=== PATIENT | male | born 1940 | race Caucasian/White ===

== ENCOUNTER 2019-02-13 16:51 | Inpatient (IN) | payer MEDICARE ==
[2019-02-13] MEDS ORDERED: SODIUM CHLORIDE 0.9% 1,000 ML IV STA (17:16)
--- NOTE | 2019-02-13 17:51 | ED ---
Weakness HPI - General Chief complaint: Weakness Stated complaint: Mental Health Time Seen by Provider: 02/13/19 17:16 Source: patient, family, EMS, RN notes reviewed, old records reviewed Mode of arrival: EMS Limitations: no limitations - History of Present Illness Initial comments: This is an 79-year-old male the ER for evaluation. Patient presents today for evaluation of weakness. Patient has not gone on for 2 days. Patient inability and late. Patient has been severely depressed. Patient's been severely depressed since the of his that is been for years. Patient is also daily drinker. MD Complaint: generalized weakness, lack of energy, difficulty walking -: week(s) Location: generalized Severity: moderate Severity scale (1-10): 5 Quality: aching Consistency: constant Improves with: none Worsens with: none Associated Symptoms: confusion, loss of appetite, nausea/vomiting, myalgias - Related Data Home Medications Medication Instructions Recorded Confirmed Allopurinol [Zyloprim] 100 mg PO BID 02/13/19 02/13/19 Atorvastatin [Lipitor] 20 mg PO DAILY 02/13/19 02/13/19 Cholecalciferol (Vitamin D3) 2,000 unit PO HS 02/13/19 02/13/19 [Vitamin D3] Cyanocobalamin (Vitamin B-12) 1,000 mcg PO DAILY 02/13/19 02/13/19 [Vitamin B-12] Escitalopram [Lexapro] 5 mg PO DAILY 02/13/19 02/13/19 Furosemide [Lasix] 20 mg PO DAILY 02/13/19 02/13/19 Metoprolol Tartrate [Lopressor] 50 mg PO BID 02/13/19 02/13/19 Potassium Chloride [Klor-Con 20] 20 meq PO BID 02/13/19 02/13/19 Rivaroxaban [Xarelto] 20 mg PO DAILY 02/13/19 02/13/19 Tamsulosin [Flomax] 0.4 mg PO DAILY 02/13/19 02/13/19 Allergies Allergy/AdvReac Type Severity Reaction Status Date / Time No Known Allergies Allergy Unverified 02/13/19 18:00 Review of Systems ROS Statement: Those systems with pertinent positive or pertinent negative responses have been documented in the HPI. ROS Other: All systems not noted in ROS Statement are negative. Past Medical History Past Medical History: Atrial Fibrillation, Myocardial Infarction ([place]), Pneumonia Additional Past Medical History / Comment(s): alcoholic, History of Any Multi-Drug Resistant Organisms: C-DIFF Past Surgical History: Cardiac Ablation, Pacemaker Additional Past Surgical History / Comment(s): defibrilator Past Psychological History: Depression Smoking Status: Never smoker Past Alcohol Use History: Daily, Heavy Past Drug Use History: None Reported General Exam Limitations: no limitations General appearance: alert, in no apparent distress Head exam: Present: atraumatic, normocephalic, normal inspection Eye exam: Present: normal appearance, PERRL, EOMI. Absent: scleral icterus, conjunctival injection, periorbital swelling ENT exam: Present: normal exam, mucous membranes moist Neck exam: Present: normal inspection. Absent: tenderness, meningismus, lymphadenopathy Respiratory exam: Present: normal lung sounds bilaterally. Absent: respiratory distress, wheezes, rales, rhonchi, stridor Cardiovascular Exam: Present: regular rate, normal rhythm, normal heart sounds. Absent: systolic murmur, diastolic murmur, rubs, gallop, clicks GI/Abdominal exam: Present: soft, normal bowel sounds. Absent: distended, t enderness, guarding, rebound, rigid Extremities exam: Present: normal inspection, full ROM, normal capillary refill. Absent: tenderness, pedal edema, joint swelling, calf tenderness Back exam: Present: normal inspection Neurological exam: Present: alert, oriented X3, CN II-XII intact Psychiatric exam: Present: normal affect, normal mood Skin exam: Present: warm, dry, intact, normal color. Absent: rash Course Vital Signs 02/13/19 02/13/19 02/13/19 16:54 18:52 19:40 Temperature 97.9 F Pulse Rate 63 110 H 77 Respiratory 16 18 18 Rate Blood Pressure 135/76 133/69 139/73 O2 Sat by Pulse 93 L 96 Oximetry - Reevaluation(s) Reevaluation #1: 02/13/19 19:36 Medical record is reviewed Reevaluation #2: 02/13/19 19:36 Unable to pass urinary catheterization EKG Findings - EKG Comments: EKG Findings:: EKG shows sinus rhythm rate of 73, HI 180, QRS 102, QTc 438 Medical Decision Making - Medical Decision Making 79 male t the ED for eval re weakness, hyponatremia, pna, uti, hyponatremia, dehydration weakness and increase in falls. WIll admit for evaluation of abn labs, treatment of uti and pna. - Lab Data Result diagrams: 02/13/19 17:30 02/13/19 17:30 Lab Results 02/13/19 02/13/19 02/13/19 Range/Units 17:30 17:30 17:30 WBC 7.7 (3.8-10.6) k/uL RBC 3.67 L (4.30-5.90) m/uL Hgb 11.5 L (13.0-17.5) gm/dL Hct 34.7 L (39.0-53.0) % MCV 94.7 (80.0-100.0) fL MCH 31.4 (25.0-35.0) pg MCHC 33.2 (31.0-37.0) g/dL RDW 13.9 (11.5-15.5) % Plt Count 163 (150-450) k/uL Neutrophils % 75 % Lymphocytes % 15 % Monocytes % 7 % Eosinophils % 1 % Basophils % 0 % Neutrophils # 5.8 (1.3-7.7) k/uL Lymphocytes # 1.2 (1.0-4.8) k/uL Monocytes # 0.5 (0-1.0) k/uL Eosinophils # 0.1 (0-0.7) k/uL Basophils # 0.0 (0-0.2) k/uL PT (9.0-12.0) sec INR (<1.2) APTT (22.0-30.0) sec Sodium 126 L (137-145) mmol/L Potassium 5.6 H (3.5-5.1) mmol/L Chloride 94 L (98-107) mmol/L Carbon Dioxide 21 L (22-30) mmol/L Anion Gap 11 mmol/L BUN 34 H (9-20) mg/dL Creatinine 1.08 (0.66-1.25) mg/dL Est GFR (CKD-EPI)AfAm 75 (>60 ml/min/1.73 sqM) Est GFR (CKD-EPI)NonAf 64 (>60 ml/min/1.73 sqM) Glucose 92 (74-99) mg/dL Plasma Lactic Acid Lemuel 2.2 H* (0.7-2.0) mmol/L Calcium 9.4 (8.4-10.2) mg/dL Phosphorus 4.0 (2.5-4.5) mg/dL Magnesium 1.5 L (1.6-2.3) mg/dL Total Bilirubin 0.7 (0.2-1.3) mg/dL AST 86 H (17-59) U/L ALT 40 (21-72) U/L Alkaline Phosphatase 65 (38-126) U/L Troponin I (0.000-0.034) ng/mL NT-Pro-B Natriuret Pep pg/mL Total Protein 7.1 (6.3-8.2) g/dL Albumin 3.3 L (3.5-5.0) g/dL Lipase (23-300) U/L TSH 2.110 (0.465-4.680) mIU/L Urine Color Urine Appearance (Clear) Urine pH (5.0-8.0) Ur Specific Adin (1.001-1.035) Urine Protein (Negative) Urine Glucose (UA) (Negative) Urine Ketones (Negative) Urine Blood (Negative) Urine Nitrite (Negative) Urine Bilirubin (Negative) Urine Urobilinogen (<2.0) mg/dL Ur Leukocyte Esterase (Negative) Urine RBC (0-5) /hpf Urine WBC (0-5) /hpf Urine WBC Clumps (None) /hpf Ur Squamous Epith Cells (0-4) /hpf Urine Bacteria (None) /hpf 02/13/19 02/13/19 02/13/19 Range/Units 17:30 17:30 17:30 WBC (3.8-10.6) k/uL RBC (4.30-5.90) m/uL Hgb (13.0-17.5) gm/dL Hct (39.0-53.0) % MCV (80.0-100.0) fL MCH (25.0-35.0) pg MCHC (31.0-37.0) g/dL RDW (11.5-15.5) % Plt Count (150-450) k/uL Neutrophils % % Lymphocytes % % Monocytes % % Eosinophils % % Basophils % % Neutrophils # (1.3-7.7) k/uL Lymphocytes # (1.0-4.8) k/uL Monocytes # (0-1.0) k/uL Eosinophils # (0-0.7) k/uL Basophils # (0-0.2) k/uL PT 13.7 H (9.0-12.0) sec INR 1.3 H (<1.2) APTT 28.9 (22.0-30.0) sec Sodium (137-145) mmol/L Potassium (3.5-5.1) mmol/L Chloride (98-107) mmol/L Carbon Dioxide (22-30) mmol/L Anion Gap mmol/L BUN (9-20) mg/dL Creatinine (0.66-1.25) mg/dL Est GFR (CKD-EPI)AfAm (>60 ml/min/1.73 sqM) Est GFR (CKD-EPI)NonAf (>60 ml/min/1.73 sqM) Glucose (74-99) mg/dL Plasma Lactic Acid Lemuel (0.7-2.0) mmol/L Calcium (8.4-10.2) mg/dL Phosphorus (2.5-4.5) mg/dL Magnesium (1.6-2.3) mg/dL Total Bilirubin (0.2-1.3) mg/dL AST (17-59) U/L ALT (21-72) U/L Alkaline Phosphatase (38-126) U/L Troponin I <0.012 (0.000-0.034) ng/mL NT-Pro-B Natriuret Pep 1880 pg/mL Total Protein (6.3-8.2) g/dL Albumin (3.5-5.0) g/dL Lipase (23-300) U/L TSH (0.465-4.680) mIU/L Urine Color Urine Appearance (Clear) Urine pH (5.0-8.0) Ur Specific Adin (1.001-1.035) Urine Protein (Negative) Urine Glucose (UA) (Negative) Urine Ketones (Negative) Urine Blood (Negative) Urine Nitrite (Negative) Urine Bilirubin (Negative) Urine Urobilinogen (<2.0) mg/dL Ur Leukocyte Esterase (Negative) Urine RBC (0-5) /hpf Urine WBC (0-5) /hpf Urine WBC Clumps (None) /hpf Ur Squamous Epith Cells (0-4) /hpf Urine Bacteria (None) /hpf 02/13/19 02/13/19 Range/Units 17:30 18:20 WBC (3.8-10.6) k/uL RBC (4.30-5.90) m/uL Hgb (13.0-17.5) gm/dL Hct (39.0-53.0) % MCV (80.0-100.0) fL MCH (25.0-35.0) pg MCHC (31.0-37.0) g/dL RDW (11.5-15.5) % Plt Count (150-450) k/uL Neutrophils % % Lymphocytes % % Monocytes % % Eosinophils % % Basophils % % Neutrophils # (1.3-7.7) k/uL Lymphocytes # (1.0-4.8) k/uL Monocytes # (0-1.0) k/uL Eosinophils # (0-0.7) k/uL Basophils # (0-0.2) k/uL PT (9.0-12.0) sec INR (<1.2) APTT (22.0-30.0) sec Sodium (137-145) mmol/L Potassium (3.5-5.1) mmol/L Chloride (98-107) mmol/L Carbon Dioxide (22-30) mmol/L Anion Gap mmol/L BUN (9-20) mg/dL Creatinine (0.66-1.25) mg/dL Est GFR (CKD-EPI)AfAm (>60 ml/min/1.73 sqM) Est GFR (CKD-EPI)NonAf (>60 ml/min/1.73 sqM) Glucose (74-99) mg/dL Plasma Lactic Acid Lemuel (0.7-2.0) mmol/L Calcium (8.4-10.2) mg/dL Phosphorus (2.5-4.5) mg/dL Magnesium (1.6-2.3) mg/dL Total Bilirubin (0.2-1.3) mg/dL AST (17-59) U/L ALT (21-72) U/L Alkaline Phosphatase (38-126) U/L Troponin I (0.000-0.034) ng/mL NT-Pro-B Natriuret Pep pg/mL Total Protein (6.3-8.2) g/dL Albumin (3.5-5.0) g/dL Lipase 235 (23-300) U/L TSH (0.465-4.680) mIU/L Urine Color Yellow Urine Appearance Turbid (Clear) Urine pH 7.5 (5.0-8.0) Ur Specific Adin 1.017 (1.001-1.035) Urine Protein 2+ H (Negative) Urine Glucose (UA) Negative (Negative) Urine Ketones Negative (Negative) Urine Blood Moderate H (Negative) Urine Nitrite Negative (Negative) Urine Bilirubin Negative (Negative) Urine Urobilinogen <2.0 (<2.0) mg/dL Ur Leukocyte Esterase Large H (Negative) Urine RBC 127 H (0-5) /hpf Urine WBC >182 H (0-5) /hpf Urine WBC Clumps Many H (None) /hpf Ur Squamous Epith Cells 10 H (0-4) /hpf Urine Bacteria Many H (None) /hpf - Radiology Data Radiology results: report reviewed (CT brain Cspine negative for acute disease, CXR and Pelvis XR show pna), image reviewed Disposition Clinical Impression: Hyponatremia, Dehydration, Alcoholism, Weakness, Fall, UTI (urinary tract infection), Community acquired bacterial pneumonia Disposition: ADMITTED IP TO THIS HOSP Condition: Fair Is patient prescribed a controlled substance at d/c from ED?: No Referrals: Zenobia Au DO [Primary Care Provider] - 1-2 days
[2019-02-13 17:55] LABS: Basophils % (A) 0 %; Eosinophils # (A) 0.1 k/uL (0-0.7); Eosinophils % (A) 1 %; HCT 34.7 % (39.0-53.0); HGB 11.5 gm/dL (13.0-17.5); Lymphocytes # (A) 1.2 k/uL (1.0-4.8); Lymphocytes % (A) 15 %; MCH 31.4 pg (25.0-35.0); MCHC 33.2 g/dL (31.0-37.0); MCV 94.7 fL (80.0-100.0); Mean Platelet Volume 7.5; Monocytes # (A) 0.5 k/uL (0-1.0); Monocytes % (A) 7 %; Neutrophils # (A) 5.8 k/uL (1.3-7.7); Neutrophils % (A) 75 %; Platelet Count 163 k/uL (150-450); RBC 3.67 m/uL (4.30-5.90); RDW 13.9 % (11.5-15.5); WBC 7.7 k/uL (3.8-10.6)
[2019-02-13 18:10] LABS: INR 1.3 (<1.2); Partial Thromboplastin Time 28.9 sec (22.0-30.0); Prothrombin Time 13.7 sec (9.0-12.0)
[2019-02-13 18:14] LABS: Albumin 3.3 g/dL (3.5-5.0); Calcium 9.4 mg/dL (8.4-10.2); Magnesium 1.5 mg/dL (1.6-2.3); Potassium 5.6 mmol/L (3.5-5.1); Total Bilirubin 0.7 mg/dL (0.2-1.3); Total Protein 7.1 g/dL (6.3-8.2)
[2019-02-13 18:57] LABS: Appearance,Urine Turbid (Clear); Bacteria,Urine Many /hpf; Bilirubin,Urine Negative (Negative); Blood,Urine Moderate (Negative); Color,Urine Yellow; Glucose,Urine (UA) Negative (Negative); Ketones,Urine Negative (Negative); Leukocyte Esterase,Urine Large (Negative); Nitrite,Urine Negative (Negative); PH, Urine 7.5 (5.0-8.0); Protein,Urine 2+ (Negative); RBC,Urine 127 /hpf (0-5); Specific Gravity,Urine 1.017 (1.001-1.035); Squamous Epithelial Cell,Urine 10 /hpf (0-4); Urobilinogen,Urine <2.0 mg/dL (<2.0); WBC,Urine >182 /hpf (0-5)
--- NOTE | 2019-02-13 19:10 | XR ---
EXAMINATION TYPE: XR pelvis AP view DATE OF EXAM: 02/13/2019 COMPARISON: NONE HISTORY: Fall. Pain. TECHNIQUE: Single view FINDINGS: Pelvic ring is intact. Proximal femurs and hip joints are intact. There is vascular calcifi cation. Sacroiliac joints are intact. IMPRESSION: Negative exam. No fracture.
--- NOTE | 2019-02-13 19:10 | CT ---
EXAMINATION TYPE: CT brain roselia laureano con DATE OF EXAM: 02/13/2019 COMPARISON: None HISTORY: Fall. CT DLP: 1444.9 mGycm Automated exposure control for dose reduction was used. TECHNIQUE: CT scan of the head and cervical spine are performed without contrast. FINDINGS: There is cerebral cortical atrophy. There is no mass effect nor midline shift. There is n o sign of intracranial hemorrhage. The calvarium is intact. Cervical vertebra have normal alignment. There is degenerative disc space narrowing throughout the ce rvical spine. There is hypertrophic mild facet arthropathy. Skull base is intact. There is no evidenc e of cervical spine fracture. There is spurring of the endplates. IMPRESSION: Cerebral atrophy. No acute intracranial abnormality. Spondylotic changes in the cervical spine. No fracture seen.
--- NOTE | 2019-02-13 19:14 | XR ---
EXAMINATION TYPE: XR knee complete bilateral DATE OF EXAM: 02/13/2019 COMPARISON: NONE HISTORY: Pain TECHNIQUE: 3 views each knee FINDINGS: I see no fracture nor dislocation. Joint spaces are fairly normal. There is mild soft tissu e swelling anterior to the left patella. There is no sign of joint effusion. There is vascular calcif ication. IMPRESSION: Mild left-sided soft tissue swelling anteriorly. No fracture seen.
--- NOTE | 2019-02-13 19:19 | XR ---
EXAMINATION TYPE: XR chest 2V DATE OF EXAM: 02/13/2019 COMPARISON: NONE HISTORY: Weakness TECHNIQUE: Frontal and lateral views of the chest are obtained. FINDINGS: There is patchy infiltrate and atelectasis in the left lower lobe. There is minimal atelec tasis lateral right lung base. There is no heart failure. There is a left axillary pacemaker. There a re chest leads. IMPRESSION: Mild infiltrates and atelectasis at the lung bases and mainly on the left side. No heart failure.
[2019-02-13] MEDS ORDERED: AZITHROMYCIN 500 MG in SODIUM CHLORIDE 0.9% 250 ML IVPB STA (19:37)
[2019-02-13] MEDS ORDERED: IPRATROPIUM-ALBUTEROL 3 ML NEB INHALATION PRN (20:11)
[2019-02-13] MEDS ORDERED: PNEUMONIA PROTOCOL UTILIZED 1 EACH MISC PO PRN (20:11)
[2019-02-13] MEDS ORDERED: THIAMINE 100 MG/ML 2 ML VIAL IM STA (20:11)
[2019-02-13] MEDS ORDERED: LORazepam 2 MG/ML INJ IV PRN ×6 (20:11→22:36)
[2019-02-13] MEDS: SODIUM CHLORIDE 0.9% 1,000 ML IV SCH (20:40)
[2019-02-13] MEDS: THIAMINE 100 MG TAB PO SCH (22:33)
[2019-02-14] MEDS: SODIUM CHLORIDE 0.9% 1,000 ML IV SCH ×2 (06:07→16:33)
[2019-02-14] MEDS: ESCITALOPRAM 5 MG TAB PO SCH (07:11)
[2019-02-14] MEDS: METOPROLOL TARTRATE 50 MG TAB PO SCH ×2 (07:11→21:43)
[2019-02-14] MEDS: THIAMINE 100 MG TAB PO SCH ×2 (07:11→17:42)
[2019-02-14] MEDS: ATORVASTATIN 20 MG TAB PO SCH (07:11)
[2019-02-14] MEDS: TAMSULOSIN 0.4 MG CAP.ER.24H PO SCH (07:11)
[2019-02-14] MEDS: FUROSEMIDE 20 MG TAB PO SCH (07:11)
[2019-02-14] MEDS: POTASSIUM CHLORIDE ER 20 MEQ TAB.ER PO SCH ×2 (07:12→21:43)
[2019-02-14] MEDS: MULTIVITAMINS, THERA 1 EACH TAB PO SCH (07:12)
[2019-02-14] MEDS: ALLOPURINOL 100 MG TAB PO SCH ×2 (07:13→21:43)
[2019-02-14] MEDS: CYANOCOBALAMIN 500 MCG TAB PO SCH (07:13)
--- NOTE | 2019-02-14 07:52 | XR ---
EXAMINATION TYPE: XR chest 2V DATE OF EXAM: 02/14/2019 COMPARISON: 02/13/2019 HISTORY: Follow-up for pneumonia. Shortness of breath. TECHNIQUE: Frontal and lateral views of the chest are obtained. FINDINGS: Bandlike opacity is seen within the left midlung with small layering left pleural effusion and trace right pleural effusion blunting the costophrenic angle. Underlying COPD is present as ther e is pulmonary hyperinflation and biapical lucency. There is mild diffuse osseous demineralization. C ardia mediastinal silhouette is enlarged with dual lead left-sided cardiac device. IMPRESSION: Similar-appearing probable left midlung atelectasis and additional area of left basilar atelectasis or pneumonia, small layering left pleural effusion, and trace right pleural effusion with underlying COPD suspected.
[2019-02-14] MEDS ORDERED: AZITHROMYCIN 500 MG in SODIUM CHLORIDE 0.9% 250 ML IVPB SCH (09:00)
[2019-02-14] MEDS: RIVAROXABAN 20 MG TAB PO SCH (09:05)
[2019-02-14 09:24] LABS: Basophils % (A) 0 %; Eosinophils % (A) 1 %; HGB 10.4 gm/dL (13.0-17.5); Lymphocytes # (A) 0.8 k/uL (1.0-4.8); Lymphocytes % (A) 14 %; MCH 32.1 pg (25.0-35.0); MCHC 32.6 g/dL (31.0-37.0); MCV 98.4 fL (80.0-100.0); Mean Platelet Volume 7.1; Monocytes # (A) 0.5 k/uL (0-1.0); Monocytes % (A) 7 %; Neutrophils # (A) 4.6 k/uL (1.3-7.7); Neutrophils % (A) 76 %; Platelet Count 153 k/uL (150-450); RBC 3.25 m/uL (4.30-5.90); RDW 13.9 % (11.5-15.5); WBC 6.1 k/uL (3.8-10.6)
[2019-02-14 09:32] LABS: ALT 40 U/L (21-72); AST 68 U/L (17-59); African American GFR (CKD) >90 (>60 ml/min/1.73 sqM); Albumin 2.8 g/dL (3.5-5.0); Alkaline Phosphatase 52 U/L (38-126); Anion Gap 12 mmol/L; Blood Urea Nitrogen 31 mg/dL (9-20); Calcium 8.6 mg/dL (8.4-10.2); Carbon Dioxide 18 mmol/L (22-30); Chloride 102 mmol/L (98-107); Glucose 99 mg/dL (74-99); Potassium 4.6 mmol/L (3.5-5.1); Sodium 132 mmol/L (137-145); Total Bilirubin 0.5 mg/dL (0.2-1.3); Total Protein 6.1 g/dL (6.3-8.2)
--- NOTE | 2019-02-14 11:32 | P.HPIM ---
History of Present Illness H&P Date: 02/14/19 Chief Complaint: Generalized weakness This is a 79-year-old male, patient of [facility]. He has a known past medical history of alcohol abuse, atrial fibrillation anticoagulated with Xarelto, hyperlipidemia, depression, myocardial infarction and pacemaker place ment. Patient presents to the ER with complaint of generalized weakness and falling at home. Patient does admit to a cough and burning with urination. Chest x-ray had shown a mild infiltrate and atelectasis at the lung bases mostly at the left. Urinalysis is positive for UTI use started on Zithromax and Rocephin in the ER. He had a computed tomography scan of the brain and cervical spine which showed no acute intracranial process and no cervical fractures. Did reveal cerebral atrophy and spondylitic changes of the cervical spine. Patient does report a fall at home 2 days ago. There is no loss of consciousness. He does report laying on the floor until family arrived which may have been for several hours. CK level minimally elevated at 435. Patient's had hyponatremia with a sodium of 126 which is up to 132 with IV fluids potassium 5.6 lactic 2.2 magnesium was 1.5 ammonia level less than 9. Pulmonary service has been placed on consult regarding the pneumonia. Patient had a pelvic x-ray which was negative x-ray of the knees showing swelling on the left no evidence of any fra ctures. EKG sinus rhythm with occasional PVCs and PACs. Patient denies any fever, chills, sweats, nausea or vomiting or bowel movement changes. He denies any chest pain or shortness of breath. Review of Systems Please refer to HPI otherwise unremarkable Past Medical History Past Medical History: Atrial Fibrillation, Heart Failure, Myocardial Infarction ([place]), Pneumonia Additional Past Medical History / Comment(s): alcoholic, Last Myocardial Infarction Date:: 2010 History of Any Multi-Drug Resistant Organisms: C-DIFF Date of last positivie culture/infection: 2014 MDRO Source:: stool Past Surgical History: Cardiac Ablation, Pacemaker Additional Past Surgical History / Comment(s): defibrilator Type of Cardiac Device: Permanent Pacemaker, AICD Device Placement Date:: 2010 Past Psychological History: Depression Smoking Status: Never smoker Past Alcohol Use History: Daily, Heavy Past Drug Use History: None Reported - Past Family History Mother Family Medical History: CVA/TIA, Diabetes Mellitus Father Family Medical History: CVA/TIA, GI Bleed Medications and Allergies Home Medications Medication Instructions Recorded Confirmed Type Allopurinol [Zyloprim] 100 mg PO BID 02/13/19 02/13/19 History Atorvastatin [Lipitor] 20 mg PO DAILY 02/13/19 02/13/19 History Cholecalciferol (Vitamin D3) 2,000 unit PO HS 02/13/19 02/13/19 History [Vitamin D3] Cyanocobalamin (Vitamin B-12) 1,000 mcg PO DAILY 02/13/19 02/13/19 History [Vitamin B-12] Escitalopram [Lexapro] 5 mg PO DAILY 02/13/19 02/13/19 History Furosemide [Lasix] 20 mg PO DAILY 02/13/19 02/13/19 History Metoprolol Tartrate [Lopressor] 50 mg PO BID 02/13/19 02/13/19 History Potassium Chloride [Klor-Con 20] 20 meq PO BID 02/13/19 02/13/19 History Rivaroxaban [Xarelto] 20 mg PO DAILY 02/13/19 02/13/19 History Tamsulosin [Flomax] 0.4 mg PO DAILY 02/13/19 02/13/19 History Allergies Allergy/AdvReac Type Severity Reaction Status Date / Time No Known Allergies Allergy Unverified 02/13/19 18:00 Physical Exam Vitals: Vital Signs Temp Pulse Pulse Resp BP BP Pulse Ox 02/14/19 07:00 97.9 F 84 17 117/70 91 L 02/13/19 23:00 98.0 F 77 14 132/67 97 02/13/19 22:13 80 02/13/19 22:04 83 02/13/19 21:02 98.7 F 86 16 122/63 97 02/13/19 20:32 97.7 F 87 14 106/65 93 L 02/13/19 20:15 98.7 F 86 16 122/63 97 02/13/19 19:40 77 18 139/73 96 02/13/19 18:52 110 H 18 133/69 02/13/19 16:54 97.9 F 63 16 135/76 93 L Intake and Output 02/13/19 02/14/19 02/14/19 22:59 06:59 14:59 Intake Total 400 700 240 Balance 400 700 240 Intake: Intake, IV Titration 400 700 Amount Azithromycin 500 mg In 250 Sodium Chloride 0.9% 250 ml @ 250 mls/hr IVPB DAILY ROBERT Rx#:[id number] Sodium Chloride 0.9% 1, 100 700 000 ml @ 100 mls/hr IV . Q10H ROBERT Rx#:[id number] cefTRIAXone 1 gm In 50 Sodium Chloride 0.9% 50 ml @ 100 mls/hr IVPB Q24HR ROBERT Rx#:[id number] Oral 240 Other: Voiding Method Diaper Diaper Diaper Incontinent Incontinent Incontinent # Voids 1 Weight 79 kg Head normocephalic Neck supple Lungs clear to auscultation bilaterally no wheezing or crackles Heart regular rate and rhythm S1-S2, no rub or gallop Abdomen is soft nontender nondistended positive bowel sounds no hepatosplenomegaly Extremities no edema Neuro alert and orientated to 3 Results CBC & Chem 7: 02/14/19 08:56 02/14/19 08:56 Labs: Abnormal Lab Results - Last 24 Hours (Table) 02/13/19 02/13/19 02/13/19 Range/Units 17:30 17:30 17:30 RBC 3.67 L (4.30-5.90) m/uL Hgb 11.5 L (13.0-17.5) gm/dL Hct 34.7 L (39.0-53.0) % Lymphocytes # (1.0-4.8) k/uL PT (9.0-12.0) sec INR (<1.2) Sodium 126 L (137-145) mmol/L Potassium 5.6 H (3.5-5.1) mmol/L Chloride 94 L (98-107) mmol/L Carbon Dioxide 21 L (22-30) mmol/L BUN 34 H (9-20) mg/dL Plasma Lactic Acid Lemuel 2.2 H* (0.7-2.0) mmol/L Magnesium 1.5 L (1.6-2.3) mg/dL AST 86 H (17-59) U/L Creatine Kinase (55-170) U/L Total Protein (6.3-8.2) g/dL Albumin 3.3 L (3.5-5.0) g/dL Urine Protein (Negative) Urine Blood (Negative) Ur Leukocyte Esterase (Negative) Urine RBC (0-5) /hpf Urine WBC (0-5) /hpf Urine WBC Clumps (None) /hpf Ur Squamous Epith Cells (0-4) /hpf Urine Bacteria (None) /hpf 02/13/19 02/13/19 02/13/19 Range/Units 17:30 17:30 18:20 RBC (4.30-5.90) m/uL Hgb (13.0-17.5) gm/dL Hct (39.0-53.0) % Lymphocytes # (1.0-4.8) k/uL PT 13.7 H (9.0-12.0) sec INR 1.3 H (<1.2) Sodium (137-145) mmol/L Potassium (3.5-5.1) mmol/L Chloride (98-107) mmol/L Carbon Dioxide (22-30) mmol/L BUN (9-20) mg/dL Plasma Lactic Acid Lemuel (0.7-2.0) mmol/L Magnesium (1.6-2.3) mg/dL AST (17-59) U/L Creatine Kinase 435 H (55-170) U/L Total Protein (6.3-8.2) g/dL Albumin (3.5-5.0) g/dL Urine Protein 2+ H (Negative) Urine Blood Moderate H (Negative) Ur Leukocyte Esterase Large H (Negative) Urine RBC 127 H (0-5) /hpf Urine WBC >182 H (0-5) /hpf Urine WBC Clumps Many H (None) /hpf Ur Squamous Epith Cells 10 H (0-4) /hpf Urine Bacteria Many H (None) /hpf 02/14/19 02/14/19 Range/Units 08:56 08:56 RBC 3.25 L (4.30-5.90) m/uL Hgb 10.4 L (13.0-17.5) gm/dL Hct 32.0 L (39.0-53.0) % Lymphocytes # 0.8 L (1.0-4.8) k/uL PT (9.0-12.0) sec INR (<1.2) Sodium 132 L (137-145) mmol/L Potassium (3.5-5.1) mmol/L Chloride (98-107) mmol/L Carbon Dioxide 18 L (22-30) mmol/L BUN 31 H (9-20) mg/dL Plasma Lactic Acid Lemuel (0.7-2.0) mmol/L Magnesium (1.6-2.3) mg/dL AST 68 H (17-59) U/L Creatine Kinase (55-170) U/L Total Protein 6.1 L (6.3-8.2) g/dL Albumin 2.8 L (3.5-5.0) g/dL Urine Protein (Negative) Urine Blood (Negative) Ur Leukocyte Esterase (Negative) Urine RBC (0-5) /hpf Urine WBC (0-5) /hpf Urine WBC Clumps (None) /hpf Ur Squamous Epith Cells (0-4) /hpf Urine Bacteria (None) /hpf Microbiology - Last 24 Hours (Table) 02/13/19 18:20 Urine Culture - Preliminary Urine,Clean Catch Thrombosis Risk Factor Assmnt - Choose All That Apply Any of the Below Risk Factors Present?: Yes Each Factor Represents 1 point: Heart failure (<1month), Medical pt on bed rest, Obesity (BMI >25) Other Risk Factors: Yes Each Risk Factor Represents 3 Points: Age 75 years or older, History of DVT/PE Thrombosis Risk Factor Assessment Total Risk Factor Score: 9 Thrombosis Risk Factor Assessment Level: High Risk Assessment and Plan Assessment: 1. Generalized weakness with falls: Likely related to infectious processes, hyponatremia and alcoholism. Consult PT OT 2. Community-acquired pneumonia: Continue Rocephin and azithromycin. Consult pulmonary service. Check sputum culture 3. UTI: Check urine culture continue Rocephin 4. Hyponatremia: Sodium 126 up to 132 with IV fluids continue to monitor 5. Hyperkalemia: Potassium 5.6 down to 4.6. Resolved 6. Severe protein calorie malnutrition: Albumin 2.8 add ensure 7. Elevated lactic acid level of 2.2 down to 1.1 with IV fluids. Likely related to dehydration and infectious processes. 8. Hypomagnesemia: Recheck magnesium level if remains low we will give supplement 9. Mild rhabdomyolysis: CK level 435. Likely related to prolonged period of time on the ground with fall. Repeat CK level. Continue IV fluids 10. Alcohol abuse: Continue with CIWA protocol with Ativan. Continue thiamine and multivitamin 11. History of paroxysmal atrial fibrillation: Anticoagulated with Xarelto 12. Hyperlipidemia continue Lipitor 13. Depression continue the Lexapro 14. Anemia: Check iron studies B12 and folate level GI prophylaxis Pepcid and DVT prophylaxis Xarelto Time with Patient: Greater than 30 (Greater than 50% of the total time spent in counseling and coordination of care.I performed an examination of the patient and discussed their management with the physician [employer]. I have reviewed the Physician [employer]'s notes and agree with the documented findings and plan of care)
[2019-02-14] MEDS ORDERED: RX INFO: IV CONTRAST WAS GIVEN 1 EACH MISC MISCELLANE PRN (12:12)
[2019-02-14 12:20] LABS: Magnesium 1.4 mg/dL (1.6-2.3)
--- NOTE | 2019-02-14 12:34 | P.GSCN ---
History of Present Illness Consult date: 02/14/19 Reason for Consult: UTI, phimosis Requesting physician: Randy Doe History of present illness: The patient is an 79-year-old white male who presented to the emergency room yesterday with a 2 day history of generalized weakness. He was found to have several medical problems, including a UTI. He was subsequently admitted. He reports urinary incontinence. An attempt was made in the ER to place a Salomon catheter, but this attempt was unsuccessful. The patient has a known history of phimosis and BPH. He was previously followed by a urologist but does not have a local urologist. I reviewed those records, which indicate that when he was seen several years ago the postvoid residual was 88 mL. He was taking Flomax at that time, and Lotrisone cream had been prescribed for the phimosis. Review of Systems - Constitutional Reports weakness, Denies chills, Denies fever - Genitourinary Reports incontinence - Psychiatric Reports depression Past Medical History Past Medical History: Atrial Fibrillation, Heart Failure, Myocardial Infarction ([place]), Pneumonia Additional Past Medical History / Comment(s): alcoholic, Last Myocardial Infarction Date:: 2010 History of Any Multi-Drug Resistant Organisms: C-DIFF Year Discovered:: 2014 MDRO Source:: stool Past Surgical History: Cardiac Ablation, Pacemaker Additional Past Surgical History / Comment(s): defibrilator Type of Cardiac Device: Permanent Pacemaker, AICD Device Placement Date:: 2010 Past Psychological History: Depression Smoking Status: Never smoker Past Alcohol Use History: Daily, Heavy Past Drug Use History: None Reported - Past Family History Mother Family Medical History: CVA/TIA, Diabetes Mellitus Father Family Medical History: CVA/TIA, GI Bleed Medications and Allergies Home Medications Medication Instructions Recorded Confirmed Type Allopurinol [Zyloprim] 100 mg PO BID 02/13/19 02/13/19 History Atorvastatin [Lipitor] 20 mg PO DAILY 02/13/19 02/13/19 History Cholecalciferol (Vitamin D3) 2,000 unit PO HS 02/13/19 02/13/19 History [Vitamin D3] Cyanocobalamin (Vitamin B-12) 1,000 mcg PO DAILY 02/13/19 02/13/19 History [Vitamin B-12] Escitalopram [Lexapro] 5 mg PO DAILY 02/13/19 02/13/19 History Furosemide [Lasix] 20 mg PO DAILY 02/13/19 02/13/19 History Metoprolol Tartrate [Lopressor] 50 mg PO BID 02/13/19 02/13/19 History Potassium Chloride [Klor-Con 20] 20 meq PO BID 02/13/19 02/13/19 History Rivaroxaban [Xarelto] 20 mg PO DAILY 02/13/19 02/13/19 History Tamsulosin [Flomax] 0.4 mg PO DAILY 02/13/19 02/13/19 History Allergies Allergy/AdvReac Type Severity Reaction Status Date / Time No Known Allergies Allergy Unverified 02/13/19 18:00 Surgical - Exam Vital Signs Temp Pulse Resp BP Pulse Ox 97.9 F 63 16 135/76 93 L 02/13/19 16:54 02/13/19 16:54 02/13/19 16:54 02/13/19 16:54 02/13/19 16:54 - General well developed, well nourished, no distress - Respiratory normal respiratory effort - Abdomen Abdomen: soft, non tender, no guarding, no rigid, no rebound - Genitourinary testicles non-tender, other (Tight phimosis is noted. There is evidence of minimal balanitis. There are no penile masses.) - Rectum Rectum: other (Patient refused.) - Psychiatric oriented to time, oriented to person, oriented to place, speech is normal, memory intact Results - Labs 02/14/19 08:56 02/14/19 08:56 Abnormal Lab Results - Last 24 Hours (Table) 02/13/19 02/13/19 02/13/19 Range/Units 17:30 17:30 17:30 RBC 3.67 L (4.30-5.90) m/uL Hgb 11.5 L (13.0-17.5) gm/dL Hct 34.7 L (39.0-53.0) % PT (9.0-12.0) sec INR (<1.2) Sodium 126 L (137-145) mmol/L Potassium 5.6 H (3.5-5.1) mmol/L Chloride 94 L (98-107) mmol/L Carbon Dioxide 21 L (22-30) mmol/L BUN 34 H (9-20) mg/dL Plasma Lactic Acid Lemuel 2.2 H* (0.7-2.0) mmol/L Magnesium 1.5 L (1.6-2.3) mg/dL AST 86 H (17-59) U/L Creatine Kinase (55-170) U/L Albumin 3.3 L (3.5-5.0) g/dL Urine Protein (Negative) Urine Blood (Negative) Ur Leukocyte Esterase (Negative) Urine RBC (0-5) /hpf Urine WBC (0-5) /hpf Urine WBC Clumps (None) /hpf Ur Squamous Epith Cells (0-4) /hpf Urine Bacteria (None) /hpf 02/13/19 02/13/19 02/13/19 Range/Units 17:30 17:30 18:20 RBC (4.30-5.90) m/uL Hgb (13.0-17.5) gm/dL Hct (39.0-53.0) % PT 13.7 H (9.0-12.0) sec INR 1.3 H (<1.2) Sodium (137-145) mmol/L Potassium (3.5-5.1) mmol/L Chloride (98-107) mmol/L Carbon Dioxide (22-30) mmol/L BUN (9-20) mg/dL Plasma Lactic Acid Lemuel (0.7-2.0) mmol/L Magnesium (1.6-2.3) mg/dL AST (17-59) U/L Creatine Kinase 435 H (55-170) U/L Albumin (3.5-5.0) g/dL Urine Protein 2+ H (Negative) Urine Blood Moderate H (Negative) Ur Leukocyte Esterase Large H (Negative) Urine RBC 127 H (0-5) /hpf Urine WBC >182 H (0-5) /hpf Urine WBC Clumps Many H (None) /hpf Ur Squamous Epith Cells 10 H (0-4) /hpf Urine Bacteria Many H (None) /hpf Microbiology - Last 24 Hours (Table) 02/13/19 18:20 Urine Culture - Preliminary Urine,Clean Catch Diabetes panel 02/13/19 Range/Units 17:30 Sodium 126 L (137-145) mmol/L Potassium 5.6 H (3.5-5.1) mmol/L Chloride 94 L (98-107) mmol/L Carbon Dioxide 21 L (22-30) mmol/L BUN 34 H (9-20) mg/dL Creatinine 1.08 (0.66-1.25) mg/dL Glucose 92 (74-99) mg/dL Calcium 9.4 (8.4-10.2) mg/dL AST 86 H (17-59) U/L ALT 40 (21-72) U/L Alkaline Phosphatase 65 (38-126) U/L Total Protein 7.1 (6.3-8.2) g/dL Albumin 3.3 L (3.5-5.0) g/dL Thyroid panel 02/13/19 Range/Units 17:30 TSH 2.110 (0.465-4.680) mIU/L Calcium panel 02/13/19 Range/Units 17:30 Calcium 9.4 (8.4-10.2) mg/dL Phosphorus 4.0 (2.5-4.5) mg/dL Albumin 3.3 L (3.5-5.0) g/dL Pituitary panel 02/13/19 Range/Units 17:30 Sodium 126 L (137-145) mmol/L Potassium 5.6 H (3.5-5.1) mmol/L Chloride 94 L (98-107) mmol/L Carbon Dioxide 21 L (22-30) mmol/L BUN 34 H (9-20) mg/dL Creatinine 1.08 (0.66-1.25) mg/dL Glucose 92 (74-99) mg/dL Calcium 9.4 (8.4-10.2) mg/dL TSH 2.110 (0.465-4.680) mIU/L Adrenal panel 02/13/19 Range/Units 17:30 Sodium 126 L (137-145) mmol/L Potassium 5.6 H (3.5-5.1) mmol/L Chloride 94 L (98-107) mmol/L Carbon Dioxide 21 L (22-30) mmol/L BUN 34 H (9-20) mg/dL Creatinine 1.08 (0.66-1.25) mg/dL Glucose 92 (74-99) mg/dL Calcium 9.4 (8.4-10.2) mg/dL Total Bilirubin 0.7 (0.2-1.3) mg/dL AST 86 H (17-59) U/L ALT 40 (21-72) U/L Alkaline Phosphatase 65 (38-126) U/L Total Protein 7.1 (6.3-8.2) g/dL Albumin 3.3 L (3.5-5.0) g/dL Assessment and Plan (1) UTI (urinary tract infection) Current Visit: Yes Status: Acute Code(s): N39.0 - URINARY TRACT INFECTION, SITE NOT SPECIFIED SNOMED Code(s): 56575595 (2) Phimosis Current Visit: Yes Status: Acute Code(s): N47.1 - PHIMOSIS SNOMED Code(s): 228930581 Plan: The postvoid residual was checked this morning, and was 443 mL which is consistent with incomplete bladder emptying. I explained to the patient that his urinary incontinence may be of the overflow type. He adamantly refuses catheter placement. I advised him that chronic incomplete bladder emptying And resulting chronic urinary incontinence, recurrent UTIs, and upper tract damage including renal failure. A urine culture is pending. In the meantime, he will continue to receive ceftriaxone. Time with Patient: Greater than 30
[2019-02-14] MEDS ORDERED: Magnesium Replacement Protocol 1 EACH MISC MISCELLANE PRN (13:53)
[2019-02-14] MEDS: MAGNESIUM SULFATE-D5W PMX 1 GM in DEXTROSE/WATER 1 100ML.BAG IVPB SCH ×3 (14:06→16:33)
--- NOTE | 2019-02-14 14:07 | CT ---
EXAMINATION TYPE: CT chest w con DATE OF EXAM: 02/14/2019 COMPARISON: Chest x-ray 02/14/2019 HISTORY: Mass like consolidation LLL CT DLP: 323.3 mGycm Automated exposure control for dose reduction was used. CONTRAST: CT scan of the chest is performed with IV Contrast, patient injected with 100 mL of Isovue 300. FINDINGS: LUNGS: The lungs are remarkable for air bronchograms involving the left lower lobe as noted on CT, th ere is no pleural or pericardial effusion. Minimal dependent atelectatic change present in the right lung base. There is no pleural effusion or pneumothorax seen. The tracheobronchial tree is patent. MEDIASTINUM: There are no greater than 1 cm hilar or mediastinal lymph nodes. No pericardial effusi on is seen. There are dense coronary artery calcifications present. The heart is enlarged. There is a generator in the left pectoral region, leads are coursing into the right atrium and ventricle AORTA: Root of the aorta measures approximately 4.1 cm. Dense atheromatous changes present within th e aorta, visceral vessels OTHER: There are mild thoracic compression deformities, mild kyphosis present, multilevel spondylosi s. IMPRESSION: Left lower lobe pneumonia, correlate. Additional findings above.
--- NOTE | 2019-02-14 14:15 | P.CNPUL ---
History of Present Illness Consult date: 02/14/19 Requesting physician: Randy Doe Reason for consult: abnormal CXR/CT Chief complaint: Weakness, fall History of present illness: This is a pleasant 79-year-old gentleman who follows with Dr. Au as his primary care physician. He is a history of atrial fibrillation anticoagulated with Xarelto, myocardial infarction, hyperlipidemia, cardiomyopathy status post defibrillator placement, depression, BPH, daily alcohol use. He did smoke for over 50 years but quit in 2010. He was brought into the emergency room yesterday for profound weakness. The patient's family states he has been not leaving the house. He's been severely depressed. He's been not eating for the past 2 weeks. He's been sitting and soiling himself without getting up to the bathroom. He did fall at home, not unable to get himself up off the floor. He has abrasions on bilateral knees. X-ray reveals no fracture. He was quite dehydrated. He received 1 L of fluid resuscitation. Currently with a 0.9#800 ML's per hour. Computed tomography scan of the brain revealed no acute abnormality. Chest x-ray reveals left midlung atelectasis and additional area of left basilar atelectasis or pneumonia, small layering left pleural effusion. We are consulted for the same. He is seen today on the regular medical floor. He is laying flat in bed. Awake and alert in no acute distress. Maintaining O2 saturations in the 90s on room air. He's been afebrile. Hemodynamically stable. Denies any worsening shortness of breath, cough or congestion. No fever, chills or night sweats. No hemoptysis. He has been losing weight with ongoing poor appetite. He appears quite dry. White count 6.1. Hemoglobin 10.4. Creatinine 0.92. Initial lactic acid 2.2 currently 1.1. Troponin negative. ProBNP 1880. Urine with many bacteria. Cultures pending. He's been initiated on DuoNeb inhalations, ceftriaxone and azithromycin, Xarelto. He is in the [facility] protocol. Review of Systems REVIEW OF SYSTEMS: CONSTITUTIONAL: Positive for weight loss and poor appetite. EYES: Denies change in vision. EARS, NOSE, MOUTH, THROAT: Denies headaches, denies sore throat. CARDIOVASCULAR: Denies chest pain, palpitations or syncopal episodes. RESPIRATORY: Positive for shortness of breath, cough, congestion no hemoptysis. GASTROINTESTINAL: Poor appetite, denies abdominal pain GENITOURINARY: Denies hematuria, denies infections. MUSKULOSKELETAL: Pain in the bilateral knees. INTEGUMENTARY: Abrasions of the bilateral knees NEUROLOGICAL: Denies recent memory loss, no recent seizure activity. PSYCHIATRIC: Denies anxiety, positive depression. HEMATOLOGIC/LYMPHATIC: Denies anemia, denies enlarged lymph nodes. Past Medical History Past Medical History: Atrial Fibrillation, Heart Failure, Myocardial Infarction ([place]), Pneumonia Additional Past Medical History / Comment(s): alcoholic, Last Myocardial Infarction Date:: 2010 History of Any Multi-Drug Resistant Organisms: C-DIFF Date of last positivie culture/infection: 2014 MDRO Source:: stool Past Surgical History: Cardiac Ablation, Pacemaker Additional Past Surgical History / Comment(s): defibrilator Type of Cardiac Device: Permanent Pacemaker, AICD Device Placement Date:: 2010 Past Psychological History: Depression Smoking Status: Never smoker Past Alcohol Use History: Daily, Heavy Past Drug Use History: None Reported - Past Family History Mother Family Medical History: CVA/TIA, Diabetes Mellitus Father Family Medical History: CVA/TIA, GI Bleed Medications and Allergies Home Medications Medication Instructions Recorded Confirmed Type Allopurinol [Zyloprim] 100 mg PO BID 02/13/19 02/13/19 History Atorvastatin [Lipitor] 20 mg PO DAILY 02/13/19 02/13/19 History Cholecalciferol (Vitamin D3) 2,000 unit PO HS 02/13/19 02/13/19 History [Vitamin D3] Cyanocobalamin (Vitamin B-12) 1,000 mcg PO DAILY 02/13/19 02/13/19 History [Vitamin B-12] Escitalopram [Lexapro] 5 mg PO DAILY 02/13/19 02/13/19 History Furosemide [Lasix] 20 mg PO DAILY 02/13/19 02/13/19 History Metoprolol Tartrate [Lopressor] 50 mg PO BID 02/13/19 02/13/19 History Potassium Chloride [Klor-Con 20] 20 meq PO BID 02/13/19 02/13/19 History Rivaroxaban [Xarelto] 20 mg PO DAILY 06/20/19 06/20/19 History Tamsulosin [Flomax] 0.4 mg PO DAILY 02/13/19 02/13/19 History Allergies Allergy/AdvReac Type Severity Reaction Status Date / Time No Known Allergies Allergy Unverified 02/13/19 18:00 Physical Exam Vitals: Vital Signs Temp Pulse Pulse Resp BP BP Pulse Ox 02/14/19 07:00 97.9 F 84 17 117/70 91 L 02/13/19 23:00 98.0 F 77 14 132/67 97 02/13/19 22:13 80 02/13/19 22:04 83 02/13/19 21:02 98.7 F 86 16 122/63 97 02/13/19 20:32 97.7 F 87 14 106/65 93 L 02/13/19 20:15 98.7 F 86 16 122/63 97 02/13/19 19:40 77 18 139/73 96 02/13/19 18:52 110 H 18 133/69 02/13/19 16:54 97.9 F 63 16 135/76 93 L Intake and Output 02/13/19 02/14/19 02/14/19 22:59 06:59 14:59 Intake Total 400 700 360 Balance 400 700 360 Intake: Intake, IV Titration 400 700 Amount Azithromycin 500 mg In 250 Sodium Chloride 0.9% 250 ml @ 250 mls/hr IVPB DAILY [facility] Rx#:[id number] Sodium Chloride 0.9% 1, 100 700 000 ml @ 100 mls/hr IV . Q10H [facility] Rx#:[id number] cefTRIAXone 1 gm In 50 Sodium Chloride 0.9% 50 ml @ 100 mls/hr IVPB Q24HR [facility] Rx#:[id number] Oral 360 Other: Voiding Method Diaper Diaper Diaper Incontinent Incontinent Incontinent # Voids 1 Weight 79 kg GENERAL EXAM: 79-year-old gentleman. Flat affect. Alert, fairly comfortable in no apparent distress. On room air. HEAD: Normocephalic. EYES: Normal reaction of pupils, equal size. NOSE: Clear with pink turbinates. THROAT: No erythema or exudates. NECK: No masses, no JVD. CHEST: No chest wall deformity. LUNGS: Equal air entry with crackles in left posterior base. Diminished.. CVS: S1 and S2 normal with no audible murmur, regular rhythm. ABDOMEN: No hepatosplenomegaly, normal bowel sounds, no guarding or rigidity. SPINE: No scoliosis or deformity SKIN: Abrasions on the bilateral knees. CENTRAL NERVOUS SYSTEM: No focal deficits, tone is normal in all 4 extremities. EXTREMITIES: There is trace peripheral edema. No clubbing, no cyanosis. Peripheral pulses are intact. Results - Laboratory Findings CBC and BMP: 02/14/19 08:56 02/14/19 08:56 PT/INR, D-dimer PT 13.7 sec (9.0-12.0) H 02/13/19 17:30 INR 1.3 (<1.2) H 02/13/19 17:30 Abnormal lab findings: Abnormal Labs 02/13/19 02/13/19 02/13/19 17:30 17:30 17:30 RBC 3.67 L Hgb 11.5 L Hct 34.7 L Lymphocytes # PT INR Sodium 126 L Potassium 5.6 H Chloride 94 L Carbon Dioxide 21 L BUN 34 H Plasma Lactic Acid Lemuel 2.2 H* Magnesium 1.5 L AST 86 H Creatine Kinase Total Protein Albumin 3.3 L Urine Protein Urine Blood Ur Leukocyte Esterase Urine RBC Urine WBC Urine WBC Clumps Ur Squamous Epith Cells Urine Bacteria 02/13/19 02/13/19 02/13/19 17:30 17:30 18:20 RBC Hgb Hct Lymphocytes # PT 13.7 H INR 1.3 H Sodium Potassium Chloride Carbon Dioxide BUN Plasma Lactic Acid Lemuel Magnesium AST Creatine Kinase 435 H Total Protein Albumin Urine Protein 2+ H Urine Blood Moderate H Ur Leukocyte Esterase Large H Urine RBC 127 H Urine WBC >182 H Urine WBC Clumps Many H Ur Squamous Epith Cells 10 H Urine Bacteria Many H 02/14/19 02/14/19 02/14/19 08:56 08:56 08:56 RBC 3.25 L Hgb 10.4 L Hct 32.0 L Lymphocytes # 0.8 L PT INR Sodium 132 L Potassium Chloride Carbon Dioxide 18 L BUN 31 H Plasma Lactic Acid Lemuel Magnesium 1.4 L AST 68 H Creatine Kinase 254 H Total Protein 6.1 L Albumin 2.8 L Urine Protein Urine Blood Ur Leukocyte Esterase Urine RBC Urine WBC Urine WBC Clumps Ur Squamous Epith Cells Urine Bacteria - Diagnostic Findings Chest x-ray: image reviewed Assessment and Plan Assessment: Impression: #1 Profound weakness with fall secondary to poor appetite and dehydration. #2 Daily heavy alcohol use. #3 Hyponatremia. #4 Depression. #5 Atrial fibrillation, anticoagulated with Xarelto. #6 Left lower lung with possibly chronic changes. Atelectasis/infiltrate/effusion. #7 50+ year smoking history, quit 2010. #8 History of myocardial infarction. #9 Ischemic cardiomyopathy status post AICD placement #10 Poor overall functional performance based on the above-mentioned multiple comorbidities. Plan: The patient was seen and evaluated by Dr. Hurley. Chest x-ray and labs reviewed. We will obtain a computed tomography scan of the chest to evaluate the left lower lung. Possible chronic changes from previous pneumonia. Possible malignancy. We will continue to follow and make further recommendations based on his clinical status. I, the cosigning physician, performed a history & physical examination of the patient. Lungs sounds with few crackles, diminished in left lung base. Maintaining good O2 saturations in the 90s on room air. I discussed the assessment and plan of care with my nurse practitioner, Amanda Seay. I attest to the above note as dictated by her. Time with Patient: Greater than 30
[2019-02-14 19:24] LABS: Iron Saturation 17.41 (15.00-50.00)
[2019-02-14] MEDS: CHOLECALCIFEROL 1,000 UNIT TAB PO SCH (21:43)
[2019-02-15] MEDS: SODIUM CHLORIDE 0.9% 1,000 ML IV SCH ×2 (04:31→12:04)
[2019-02-15 07:25] LABS: Basophils % (A) 0 %; Eosinophils # (A) 0.1 k/uL (0-0.7); Eosinophils % (A) 2 %; HCT 29.6 % (39.0-53.0); HGB 9.9 gm/dL (13.0-17.5); Lymphocytes % (A) 24 %; MCH 32.6 pg (25.0-35.0); MCHC 33.5 g/dL (31.0-37.0); MCV 97.3 fL (80.0-100.0); Mean Platelet Volume 7.4; Monocytes # (A) 0.4 k/uL (0-1.0); Monocytes % (A) 9 %; Neutrophils # (A) 2.7 k/uL (1.3-7.7); Neutrophils % (A) 63 %; Platelet Count 155 k/uL (150-450); RBC 3.04 m/uL (4.30-5.90); RDW 14.7 % (11.5-15.5); WBC 4.3 k/uL (3.8-10.6)
[2019-02-15 07:45] LABS: ALT 44 U/L (21-72); AST 57 U/L (17-59); African American GFR (CKD) >90 (>60 ml/min/1.73 sqM); Albumin 2.6 g/dL (3.5-5.0); Alkaline Phosphatase 50 U/L (38-126); Anion Gap 7 mmol/L; Blood Urea Nitrogen 23 mg/dL (9-20); Calcium 8.5 mg/dL (8.4-10.2); Carbon Dioxide 26 mmol/L (22-30); Chloride 102 mmol/L (98-107); Glucose 99 mg/dL (74-99); Magnesium 1.8 mg/dL (1.6-2.3); Potassium 3.4 mmol/L (3.5-5.1); Sodium 135 mmol/L (137-145); Total Bilirubin 0.5 mg/dL (0.2-1.3); Total Protein 5.8 g/dL (6.3-8.2)
[2019-02-15] MEDS: CYANOCOBALAMIN 500 MCG TAB PO SCH (08:08)
[2019-02-15] MEDS: ESCITALOPRAM 5 MG TAB PO SCH (08:08)
[2019-02-15] MEDS: ALLOPURINOL 100 MG TAB PO SCH ×2 (08:08→20:26)
[2019-02-15] MEDS: ATORVASTATIN 20 MG TAB PO SCH (08:08)
[2019-02-15] MEDS: MULTIVITAMINS, THERA 1 EACH TAB PO SCH (08:08)
[2019-02-15] MEDS: FUROSEMIDE 20 MG TAB PO SCH (08:09)
[2019-02-15] MEDS: FAMOTIDINE 20 MG TAB PO SCH (08:09)
[2019-02-15] MEDS: METOPROLOL TARTRATE 50 MG TAB PO SCH ×2 (08:09→20:25)
[2019-02-15] MEDS: AZITHROMYCIN 500 MG TAB PO SCH (08:09)
[2019-02-15] MEDS: TAMSULOSIN 0.4 MG CAP.ER.24H PO SCH (08:09)
[2019-02-15] MEDS: RIVAROXABAN 20 MG TAB PO SCH (08:10)
[2019-02-15] MEDS: THIAMINE 100 MG TAB PO SCH ×2 (08:11→16:48)
[2019-02-15] MEDS: POTASSIUM CHLORIDE ER 20 MEQ TAB.ER PO SCH ×2 (08:11→20:26)
--- NOTE | 2019-02-15 10:08 | P.PN ---
Progress Note - Text Progress Note Date: 02/15/19 Mr. Hussein is afebrile. He continues to experience urinary incontinence. He denies pain. The urine culture has shown gram-negative bacilli. Blood cultures are negative. I had a lengthy discussion with Mr. Hussein and his son. I explained to them that persistent urinary retention can result in ongoing overflow urinary incontinence, recurrent UTIs, and upper tract damage. I once again suggested that a Salomon catheter be placed, which he refuses. I would suggest that antibiotics be continued, pending the final urine culture result.
--- NOTE | 2019-02-15 11:42 | P.PN ---
Subjective Progress Note Date: 02/15/19 Principal diagnosis: Weakness, fall This is a pleasant 79-year-old gentleman who follows with Dr. Au as his primary care physician. He is a history of atrial fibrillation anticoagulated with Xarelto, myocardial infarction, hyperlipidemia, cardiomyopathy status post defibrillator placement, depression, BPH, daily alcohol use. He did smoke for over 50 years but quit in 2010. He was brought into the emergency room yesterday for profound weakness. The patient's family states he has been not leaving the house. He's been severely depressed. He's been not eating for the past 2 weeks. He's been sitting and soiling himself without getting up to the bathroom. He did fall at home, not unable to get himself up off the floor. He has abrasions on bilateral knees. X-ray reveals no fracture. He was quite dehydrated. He received 1 L of fluid resuscitation. Currently with a 0.9#800 ML's per hour. Computed tomography scan of the brain revealed no acute abnormality. Chest x-ray reveals left midlung atelectasis and additional area of left basilar atelectasis or pneumonia, small layering left pleural effusion. We are consulted for the same. He is seen today on the regular medical floor. He is laying flat in bed. Awake and alert in no acute distress. Maintaining O2 saturations in the 90s on room air. He's been afebrile. Hemodynamically stable. Denies any worsening shortness of breath, cough or congestion. No fever, chills or night sweats. No hemoptysis. He has been losing weight with ongoing poor appetite. He appears quite dry. White count 6.1. Hemoglobin 10.4. Creatinine 0.92. Initial lactic acid 2.2 currently 1.1. Troponin negative. ProBNP 1880. Urine with many bacteria. Cultures pending. He's been initiated on DuoNeb inhalations, ceftriaxone and azithromycin, Xarelto. He is in the [facility] protocol. The patient is seen today 02/15/2019 in follow-up on the selective care unit. He is more awake and alert today as compared to yesterday. Denies any worsening shortness of breath, cough or congestion. Continue and O2 saturations in the mid 90s on room air. He's been afebrile. Computed tomography scan of the chest revealed a left lower lobe pneumonia. Urine culture positive for gram-negative bacilli, blood cultures revealing no growth. White count 4.3. Hemoglobin 9.9. Creatinine 0.78. Remains on DuoNeb inhalations, ceftriaxone and azithromycin. Objective - Vital Signs Vital signs: Vital Signs Temp 97.8 F 02/15/19 06:49 Pulse 74 02/15/19 06:49 Resp 17 02/15/19 06:49 BP 154/74 02/15/19 06:49 Pulse Ox 95 02/15/19 06:49 Intake & Output 02/14/19 02/15/19 02/15/19 18:59 06:59 18:59 Intake Total 360 1600 Balance 360 1600 Weight 87.5 kg Intake: Intake, IV Titration 1600 Amount Magnesium Sulfate-D5w Pmx 800 1 gm In Dextrose/Water 1 100ml.bag @ 100 mls/hr IVPB Q1H [facility] Rx#: [id number] Sodium Chloride 0.9% 1, 800 000 ml @ 100 mls/hr IV . Q10H [facility] Rx#:[id number] Oral 360 Other: Voiding Method Diaper Incontinent Incontinent Incontinent # Voids 1 1 2 # Bowel Movements 1 - Exam GENERAL EXAM: Alert, active, comfortable in no apparent distress. On room air. HEAD: Normocephalic. EYES: Normal reaction of pupils, equal size. NOSE: Clear with pink turbinates. THROAT: No erythema or exudates. NECK: No masses, no JVD. CHEST: No chest wall deformity. LUNGS: Equal air entry with crackles in the right lung base CVS: S1 and S2 normal with no audible murmur, regular rhythm. ABDOMEN: No hepatosplenomegaly, normal bowel sounds, no guarding or rigidity. SPINE: No scoliosis or deformity SKIN: No rashes CENTRAL NERVOUS SYSTEM: No focal deficits, tone is normal in all 4 extremities. EXTREMITIES: There is no peripheral edema. No clubbing, no cyanosis. Peripheral pulses are intact. - Labs CBC & Chem 7: 02/15/19 06:56 02/15/19 06:56 Labs: Abnormal Lab Results - Last 24 Hours (Table) 02/14/19 02/14/19 02/15/19 Range/Units 08:56 08:56 06:56 RBC 3.04 L (4.30-5.90) m/uL Hgb 9.9 L (13.0-17.5) gm/dL Hct 29.6 L (39.0-53.0) % Sodium (137-145) mmol/L Potassium (3.5-5.1) mmol/L BUN (9-20) mg/dL Magnesium 1.4 L (1.6-2.3) mg/dL Iron 35 L (65-175) ug/dL TIBC 201 L (228-460) ug/dL Ferritin 623.6 H (22.0-322.0) ng/mL Creatine Kinase 254 H (55-170) U/L Total Protein (6.3-8.2) g/dL Albumin (3.5-5.0) g/dL Vitamin B12 1008.0 H (200.0-944.0) pg/mL 02/15/19 Range/Units 06:56 RBC (4.30-5.90) m/uL Hgb (13.0-17.5) gm/dL Hct (39.0-53.0) % Sodium 135 L (137-145) mmol/L Potassium 3.4 L (3.5-5.1) mmol/L BUN 23 H (9-20) mg/dL Magnesium (1.6-2.3) mg/dL Iron (65-175) ug/dL TIBC (228-460) ug/dL Ferritin (22.0-322.0) ng/mL Creatine Kinase (55-170) U/L Total Protein 5.8 L (6.3-8.2) g/dL Albumin 2.6 L (3.5-5.0) g/dL Vitamin B12 (200.0-944.0) pg/mL Microbiology - Last 24 Hours (Table) 02/13/19 20:35 Blood Culture - Preliminary Blood No Growth after 24 hours 02/13/19 18:20 Urine Culture - Preliminary Urine,Clean Catch Gram Neg Bacilli Assessment and Plan Assessment: Impression: #1 Profound weakness with fall secondary to poor appetite and dehydration with gram-negative bacilli in the urine. #2 Daily heavy alcohol use. #3 Hyponatremia. #4 Depression. #5 Atrial fibrillation, anticoagulated with Xarelto. #6 Left lower lung pneumonia. #7 50+ year smoking history, quit 2010. #8 History of myocardial infarction. #9 Ischemic cardiomyopathy status post AICD placement #10 Poor overall functional performance based on the above-mentioned multiple comorbidities. Plan: The patient was seen and evaluated by Dr. Hurley. Computed tomography scan of the chest and labs reviewed. We'll continue with bronchodilators and antibiot ics. We will continue to follow and make further recommendations based on his clinical status. I, the cosigning physician, performed a history & physical examination of the patient. Lungs sounds with few crackles, diminished in left lung base. Maintaining good O2 saturations in the 90s on room air. I discussed the assessment and plan of care with my nurse practitioner, Amanda Seay. I attest to the above note as dictated by her.
[2019-02-15] MEDS ORDERED: POTASSIUM BICARBONATE/CIT AC 20 MEQ TABLET.EFF PO ONE (12:44)
--- NOTE | 2019-02-15 17:17 | P.PN ---
Subjective Progress Note Date: 02/15/19 (Delayed charting patient seen at 1245) Principal diagnosis: fall Patient is an 79-year-old male with a past medical history of atrial fibrillation on anticoagulation with Xarelto, alcohol abuse, dyslipidemia, myocardial infarction, congestive heart failure with AICD and permanent pacemaker in place who presented to the ER with complaints of generalized weakness and falling. In the ER he underwent an extensive evaluation. On arrival his vital signs were within normal limits. Laboratory analysis revealed a hemoglobin of 11.5, sodium 126, potassium 5.6, chloride 94, BUN 34, magnesium 1.5, AST 86, CK 435, and albumin of 3.3. Urinalysis was positive for urinary tract infection with white blood cells greater than 182 this was consistent with patient's complaint of burning on urination. He also underwent an extensive radiology evaluation. Chest x-ray showed possible mild infiltrate and atelectasis at the lung bases mainly on the left. CT head and cervical spine de monstrated cerebral atrophy, spondylitic changes, but no acute fracture. X-ray of the knee showed left patellar swelling but no signs of fracture. Pelvic x- ray was negative. He was started on IV fluids, Rocephin, and Zithromax. He was admitted for further monitoring. By the morning after admission his sodium had corrected to 132. He was seen by urology and diagnosed with urinary tract infection and phimosis. He was also found to have urinary retention with postvoid residual of 443, patient refuses catheter placement. He underwent a CT of the chest which demonstrated a left lower lobe pneumonia but no other abnormalities. He was seen by pulmonary who recommended continue with antibio tics. Patient seen and examined at bedside. Still is hesitant to have slightly catheter placed today and had difficulty placing this before he states it is painful. Denies any chest pain, shortness of breath, abdominal pain, nausea, or vomiting. Still feeling weak. Objective - Vital Signs Vital signs: Vital Signs Temp 97.7 F 02/15/19 13:58 Pulse 71 02/15/19 13:58 Resp 15 02/15/19 13:58 BP 106/60 02/15/19 13:58 Pulse Ox 100 02/15/19 13:58 Intake & Output 02/14/19 02/15/19 02/15/19 18:59 06:59 18:59 Intake Total 360 1600 Balance 360 1600 Weight 87.5 kg Intake: Intake, IV Titration 1600 Amount Magnesium Sulfate-D5w Pmx 800 1 gm In Dextrose/Water 1 100ml.bag @ 100 mls/hr IVPB Q1H [facility] Rx#: [id number] Sodium Chloride 0.9% 1, 800 000 ml @ 100 mls/hr IV . Q10H [facility] Rx#:[id number] Oral 360 Other: Voiding Method Diaper Incontinent Incontinent Incontinent # Voids 1 1 2 # Bowel Movements 1 - Exam General:, Disheveled, no distress, appears at stated age Derm: warm, dry Head: atraumatic, normocephalic, symmetric Eyes: EOMI, no lid lag, anicteric sclera Mouth: no lip lesion, mucus membranes moist Cardiovascular: S1S2 reg, no murmur, positive posterior tibial pulse bilateral, Lungs: Coarse breath sounds bilateral, no rhonchi, no rales , no accessory muscle use Abdominal: soft, nontender to palpation, no guarding, no appreciable organome bj Ext: no gross muscle atrophy, no edema, no contractures Neuro: CN II-XI grossly intact, no focal neuro deficits Psych: Alert, oriented, appropriate affect - Labs CBC & Chem 7: 02/15/19 06:56 02/15/19 06:56 Labs: Abnormal Lab Results - Last 24 Hours (Table) 02/14/19 02/15/19 02/15/19 Range/Units 08:56 06:56 06:56 RBC 3.04 L (4.30-5.90) m/uL Hgb 9.9 L (13.0-17.5) gm/dL Hct 29.6 L (39.0-53.0) % Sodium 135 L (137-145) mmol/L Potassium 3.4 L (3.5-5.1) mmol/L BUN 23 H (9-20) mg/dL Iron 35 L (65-175) ug/dL TIBC 201 L (228-460) ug/dL Ferritin 623.6 H (22.0-322.0) ng/mL Total Protein 5.8 L (6.3-8.2) g/dL Albumin 2.6 L (3.5-5.0) g/dL Vitamin B12 1008.0 H (200.0-944.0) pg/mL Microbiology - Last 24 Hours (Table) 02/13/19 20:35 Blood Culture - Preliminary Blood No Growth after 24 hours 02/13/19 18:20 Urine Culture - Preliminary Urine,Clean Catch Gram Neg Bacilli Assessment and Plan Assessment: Urinary tract infection associated with urinary retention and possible BPH -Urology recommendations appreciated. Patient continues to refuse Salomon catheter. I also discussed this with patient along with his family being present. -Continue with Rocephin -Await urine culture Generalized weakness with fall -Fall precautions -PT/OT evaluation -Likely related to multiple infections Community-acquired pneumonia, left lower lobe -Continue with Zithromax and Rocephin anticipated five-day course -Bronchodilators -Pulmonary recommendations -CT without evidence of malignancy Hyponatremia, likely secondary to dehydration -Improved -stop IVF -Repeat basic profile in a.m. Alcohol use -CIWA, thiamine, folic acid supplementation -Cessation encouraged protein calorie malnutrition -Ensure Elevated CPK - improved with IVF - no need to recheck Paroxysmal atrial fibrillation -Anticoagulated with Xarelto - loproessor - follow HR Dyslipidemia -Lipitor Depression -Lexapro Anemia -B12 levels normal -Suspect portion of anemia of chronic disease with low iron, low TIBC and high ferritin level -Also may be secondary to marrow suppression from chronic alcohol use Elevated lactic acid, resolved Hypomagnesemia, resolved Hyperkalemia, resolved
[2019-02-15] MEDS: CHOLECALCIFEROL 1,000 UNIT TAB PO SCH (20:25)
[2019-02-15] MEDS ORDERED: Magnesium Replacement Protocol 1 EACH MISC MISCELLANE PRN (20:28)
[2019-02-15] MEDS: MAGNESIUM SULFATE-D5W PMX 1 GM in DEXTROSE/WATER 1 100ML.BAG IVPB SCH ×2 (22:21→23:51)
[2019-02-16 06:51] LABS: Basophils % (A) 1 %; Eosinophils # (A) 0.1 k/uL (0-0.7); Eosinophils % (A) 2 %; HCT 31.1 % (39.0-53.0); Lymphocytes # (A) 1.3 k/uL (1.0-4.8); Lymphocytes % (A) 25 %; MCH 31.7 pg (25.0-35.0); MCHC 32.1 g/dL (31.0-37.0); MCV 98.7 fL (80.0-100.0); Macrocytosis Slight; Mean Platelet Volume 7.2; Monocytes # (A) 0.5 k/uL (0-1.0); Monocytes % (A) 9 %; Neutrophils # (A) 3.1 k/uL (1.3-7.7); Neutrophils % (A) 61 %; Platelet Count 173 k/uL (150-450); RBC 3.15 m/uL (4.30-5.90); WBC 5.1 k/uL (3.8-10.6)
[2019-02-16 06:59] LABS: ALT 41 U/L (21-72); AST 53 U/L (17-59); African American GFR (CKD) >90 (>60 ml/min/1.73 sqM); Albumin 2.7 g/dL (3.5-5.0); Alkaline Phosphatase 54 U/L (38-126); Anion Gap 5 mmol/L; Blood Urea Nitrogen 19 mg/dL (9-20); Calcium 8.8 mg/dL (8.4-10.2); Carbon Dioxide 29 mmol/L (22-30); Chloride 103 mmol/L (98-107); Glucose 103 mg/dL (74-99); Magnesium 1.9 mg/dL (1.6-2.3); Potassium 4.1 mmol/L (3.5-5.1); Sodium 137 mmol/L (137-145); Total Bilirubin 0.4 mg/dL (0.2-1.3)
[2019-02-16] MEDS: FOLIC ACID 1 MG TAB PO SCH (08:05)
[2019-02-16] MEDS: METOPROLOL TARTRATE 50 MG TAB PO SCH ×2 (08:05→20:03)
[2019-02-16] MEDS: FUROSEMIDE 20 MG TAB PO SCH (08:05)
[2019-02-16] MEDS: MULTIVITAMINS, THERA 1 EACH TAB PO SCH (08:05)
[2019-02-16] MEDS: ATORVASTATIN 20 MG TAB PO SCH (08:05)
[2019-02-16] MEDS: TAMSULOSIN 0.4 MG CAP.ER.24H PO SCH (08:05)
[2019-02-16] MEDS: ESCITALOPRAM 5 MG TAB PO SCH (08:05)
[2019-02-16] MEDS: POTASSIUM CHLORIDE ER 20 MEQ TAB.ER PO SCH ×2 (08:05→20:06)
[2019-02-16] MEDS: CYANOCOBALAMIN 500 MCG TAB PO SCH (08:05)
[2019-02-16] MEDS: ALLOPURINOL 100 MG TAB PO SCH ×2 (08:05→20:03)
[2019-02-16] MEDS: THIAMINE 100 MG TAB PO SCH ×2 (08:05→16:59)
[2019-02-16] MEDS: FAMOTIDINE 20 MG TAB PO SCH (08:05)
[2019-02-16] MEDS: RIVAROXABAN 20 MG TAB PO SCH (08:06)
[2019-02-16] MEDS: AZITHROMYCIN 500 MG TAB PO SCH (08:06)
[2019-02-16 09:59] VITALS: BMI 28.6
--- NOTE | 2019-02-16 14:24 | P.PN ---
Subjective Progress Note Date: 02/16/19 Principal diagnosis: Acute urinary tract infection secondary to Proteus mirabilis, possible left lower lobe pneumonia. This is a pleasant 79-year-old gentleman who follows with Dr. Au as his primary care physician. He is a history of atrial fibrillation anticoagulated with Xarelto, myocardial infarction, hyperlipidemia, cardiomyopathy status post defibrillator placement, depression, BPH, daily alcohol use. He did smoke for over 50 years but quit in 2010. He was brought into the emergency room yesterday for profound weakness. The patient's family states he has been not leaving the house. He's been severely depressed. He's been not eating for the past 2 weeks. He's been sitting and soiling himself without getting up to the bathroom. He did fall at home, not unable to get himself up off the floor. He has abrasions on bilateral knees. X-ray reveals no fracture. He was quite dehydrated. He received 1 L of fluid resuscitation. Currently with a 0.9#800 ML's per hour. Computed tomography scan of the brain revealed no acute abnormality. Chest x-ray reveals left midlung atelectasis and additional area of left basilar atelectasis or pneumonia, small layering left pleural effusion. We are consulted for the same. He is seen today on the regular medical floor. He is laying flat in bed. Awake and alert in no acute distress. Maintaining O2 saturations in the 90s on room air. He's been afebrile. Hemodynamically stable. Denies any worsening shortness of breath, cough or congestion. No fever, chills or night sweats. No hemoptysis. He has been losing weight with ongoing poor appetite. He appears quite dry. White count 6.1. Hemoglobin 10 .4. Creatinine 0.92. Initial lactic acid 2.2 currently 1.1. Troponin negative. ProBNP 1880. Urine with many bacteria. Cultures pending. He's been initiated on DuoNeb inhalations, ceftriaxone and azithromycin, Xarelto. He is in the CIWA protocol. The patient is seen today 02/15/2019 in follow-up on the selective care unit. He is more awake and alert today as compared to yesterday. Denies any worsening shortness of breath, cough or congestion. Continue and O2 saturations in the mid 90s on room air. He's been afebrile. Computed tomography scan of the chest revealed a left lower lobe pneumonia. Urine culture positive for gram-negative bacilli, blood cultures revealing no growth. White count 4.3. Hemoglobin 9.9. Creatinine 0.78. Remains on DuoNeb inhalations, ceftriaxone and azithromycin. Reevaluated today on 02/16/2019, patient is feeling a bit better, however he continues to have generalized weakness. Patient is being treated for urinary tract infection, and possible left lower lobe pneumonia although the findings on the CT of the chest could be chronic, unfortunately no old x-ray or CT of the chest for comparison. The findings are more suggestive of chronic scarring and fibrosis, possibility of new pulmonary process is not entirely ruled out, clinically felt to be less likely, but the patient will definitely need outpatient follow-up, and close observation of the area of the left lower lobe, may consider repeating CT of the chest in the next couple of months, I would also consider bronchoscopy and transbronchial biopsy of the left lower lobe on outpatient basis. Objective - Vital Signs Vital signs: Vital Signs Temp 97.7 F 02/16/19 06:41 Pulse 74 02/16/19 06:41 Resp 17 02/16/19 01:12 BP 134/80 02/16/19 06:41 Pulse Ox 96 02/16/19 06:41 Intake & Output 02/15/19 02/16/19 02/16/19 18:59 06:59 18:59 Intake Total 200 Balance 200 Weight 88 kg 88 kg Intake: Intake, IV Titration 200 Amount Magnesium Sulfate-D5w Pmx 200 1 gm In Dextrose/Water 1 100ml.bag @ 100 mls/hr IVPB Q1H [facility] Rx#: [id number] Other: Voiding Method Incontinent Incontinent # Voids 2 2 1 # Bowel Movements 2 - Exam GENERAL EXAM: Alert, active, comfortable in no apparent distress. Has no pulmonary symptoms whatsoever. On room air. HEAD: Normocephalic. EYES: Normal reaction of pupils, equal size. NOSE: Clear with pink turbinates. THROAT: No erythema or exudates. NECK: No masses, no JVD. CHEST: No chest wall deformity. LUNGS: Equal air entry with crackles in the right lung base CVS: S1 and S2 normal with no audible murmur, regular rhythm. ABDOMEN: No hepatosplenomegaly, normal bowel sounds, no guarding or rigidity. SPINE: No scoliosis or deformity SKIN: No rashes CENTRAL NERVOUS SYSTEM: No focal deficits, tone is normal in all 4 extremities. EXTREMITIES: There is no peripheral edema. No clubbing, no cyanosis. Peripheral pulses are intact. - Labs CBC & Chem 7: 02/16/19 06:18 02/16/19 06:17 Labs: Abnormal Lab Results - Last 24 Hours (Table) 02/16/19 02/16/19 Range/Units 06:17 06:18 RBC 3.15 L (4.30-5.90) m/uL Hgb 10.0 L (13.0-17.5) gm/dL Hct 31.1 L (39.0-53.0) % Glucose 103 H (74-99) mg/dL Total Protein 6.0 L (6.3-8.2) g/dL Albumin 2.7 L (3.5-5.0) g/dL Microbiology - Last 24 Hours (Table) 02/13/19 18:20 Urine Culture - Final Urine,Clean Catch Proteus mirabilis 02/13/19 20:35 Blood Culture - Preliminary Blood No Growth after 48 hours Assessment and Plan Assessment: #1 Profound weakness with acute Proteus mirabilis urinary tract infection #2 Daily heavy alcohol use. #3 Hyponatremia. Likely secondary to alcohol abuse. #4 Depression. #5 Atrial fibrillation, anticoagulated with Xarelto. #6 Left lower lung pneumonia. The findings on the left lower lobe could be acute or could be chronic, I reviewed the CT of the chest, and unfortunately no old x-rays or CT of the chest for comparison. I have a feeling that the findings are likely chronic related to previous pneumonia and what we are seeing is mostly scarring in the left lower lobe. However the patient was made aware that he would need a close follow-up on outpatient basis, may eventually repeat CT of the chest and even consider bronchoscopy and biopsy of the left lower lobe. This could be done on outpatient basis. #7 50+ year smoking history, quit 2010. #8 History of myocardial infarction. #9 Ischemic cardiomyopathy status post AICD placement #10 Poor overall functional performance based on the above-mentioned multiple comorbidities. Recommendation: Continue present treatment plan, consider discharge planning in the next 24 hours, must have follow-up on outpatient basis with me regarding his abnormal CT of the chest and left lower lobe findings. May or may not consider bronchoscopy and transbronchial biopsy, patient is clearly at this point is not a great candidate for any surgical intervention. Again I feel the findings may be chronic, but must be monitored closely on outpatient basis. Time with Patient: Less than 30
--- NOTE | 2019-02-16 14:28 | P.PN ---
Subjective Progress Note Date: 02/16/19 (Delayed charting seen at 1 PM) Principal diagnosis: fall Patient is an 79-year-old male with a past medical history of atrial fibrillation on anticoagulation with Xarelto, alcohol abuse, dyslipidemia, myocardial infarction, congestive heart failure with AICD and permanent pacem robert in place who presented to the ER with complaints of generalized weakness and falling. In the ER he underwent an extensive evaluation. On arrival his vital signs were within normal limits. Laboratory analysis revealed a hemoglobin of 11.5, sodium 126, potassium 5.6, chloride 94, BUN 34, magnesium 1.5, AST 86, CK 435, and albumin of 3.3. Urinalysis was positive for urinary tract infection with white blood cells greater than 182 this was consistent with patient's complaint of burning on urination. He also underwent an extensive radiology evaluation. Chest x-ray showed possible mild infiltrate and atelectasis at the lung bases mainly on the left. CT head and cervical spine demonstrated cerebral atrophy, spondylitic changes, but no acute fracture. X- ray of the knee showed left patellar swelling but no signs of fracture. Pelvic x-ray was negative. He was started on IV fluids, Rocephin, and Zithromax. He was admitted for further monitoring. By the morning after admission his sodium had corrected to 132. He was seen by urology and diagnosed with urinary tract infection and phimosis. He was also found to have urinary retention with postvoid residual of 443, patient refuses catheter placement. He underwent a CT of the chest which demonstrated a left lower lobe pneumonia but no other abnormalities. He was seen by pulmonary who recommended continue with antibiotics. He continued to progress well. Physical therapy saw the patient and recommends rehab placement. Patient seen and examined at bedside. Family present again discussed at length need for garcia risk including recurrent UTI, Renal failure, bladder rupture. Given options for ease of insertion including urojet and coud catheter. Patient continues to refuse. He denies chest pain, shortness of breath, nausea, vomiting, diarrhea. He denies any signs of alcohol withdrawal such as shaking, fidgeting, headache, nausea, or anxiety. Objective - Vital Signs Vital signs: Vital Signs Temp 97.7 F 02/16/19 06:41 Pulse 74 02/16/19 06:41 Resp 17 02/16/19 01:12 BP 134/80 02/16/19 06:41 Pulse Ox 96 02/16/19 06:41 Intake & Output 02/15/19 02/16/19 02/16/19 18:59 06:59 18:59 Intake Total 200 Balance 200 Weight 88 kg 88 kg Intake: Intake, IV Titration 200 Amount Magnesium Sulfate-D5w Pmx 200 1 gm In Dextrose/Water 1 100ml.bag @ 100 mls/hr IVPB Q1H [facility] Rx#: [id number] Other: Voiding Method Incontinent Incontinent # Voids 2 2 1 # Bowel Movements 2 - Exam General:, Disheveled, no distress, appears at stated age Derm: warm, dry Head: atraumatic, normocephalic, symmetric Eyes: EOMI, no lid lag, anicteric sclera Mouth: no lip lesion, mucus membranes moist Cardiovascular: S1S2 reg, no murmur, positive posterior tibial pulse bilateral, Lungs: Coarse breath sounds bilateral, no rhonchi, no rales , no accessory muscle use Abdominal: soft, nontender to palpation, no guarding, no appreciable organomegaly Ext: no gross muscle atrophy, 1+ edema, no contractures Neuro: CN II-XI grossly intact, no focal neuro deficits Psych: Alert, oriented, appropriate affect - Labs CBC & Chem 7: 02/16/19 06:18 02/16/19 06:17 Labs: Abnormal Lab Results - Last 24 Hours (Table) 02/16/19 02/16/19 Range/Units 06:17 06:18 RBC 3.15 L (4.30-5.90) m/uL Hgb 10.0 L (13.0-17.5) gm/dL Hct 31.1 L (39.0-53.0) % Glucose 103 H (74-99) mg/dL Total Protein 6.0 L (6.3-8.2) g/dL Albumin 2.7 L (3.5-5.0) g/dL Microbiology - Last 24 Hours (Table) 02/13/19 18:20 Urine Culture - Final Urine,Clean Catch Proteus mirabilis 02/13/19 20:35 Blood Culture - Preliminary Blood No Growth after 48 hours Assessment and Plan Assessment: Proteus Urinary tract infection associated with urinary retention and possible BPH -Urology recommendations appreciated. Patient continues to refuse Garcia catheter. I also discussed this with patient along with his family being present. -Conversion to cefdinir - anticipate prolonged course with significant urinary retention - follow with urology as outpatient Generalized weakness with fall -Fall precautions -PT/OT evaluation -Likely related to multiple infections Community-acquired pneumonia, left lower lobe -Continue with Zithromax cefdinir anticipate five-day course zithromax -Bronchodilators -Pulmonary recommendations -CT without evidence of malignancy Alcohol use -CIWA, thiamine, folic acid supplementation -Cessation encouraged protein calorie malnutrition -Ensure Paroxysmal atrial fibrillation - Anticoagulated with Xarelto - loproessor - follow HR Dyslipidemia -Lipitor Depression -Lexapro Anemia -B12 levels normal -Suspect portion of anemia of chronic disease with low iron, low TIBC and high ferritin level -Also may be secondary to marrow suppression from chronic alcohol use Hyponatremia, likely secondary to dehydration, reoslved Elevated CPK Elevated lactic acid, resolved Hypomagnesemia, resolved Hyperkalemia, resolved DVT prophylaxis: Xarelto Discussed with: Patient, family, nursing Anticipated discharge: 1-[address]: vs SNF A total of 25 minutes was spent on the care of this complex patient more than 50% of the time was spent in counseling and care coordination.
--- NOTE | 2019-02-16 14:45 | P.PN ---
Progress Note - Text Progress Note Date: 02/16/19 Mr. Hussein's condition is essentially unchanged. He remains afebrile. The urine culture has shown Proteus mirabilis, sensitive to ampicillin and cephalosporins. I explained to the patient that the presence of a Proteus UTI suggests the possibility of infected urinary calculi. He continues to refuse Salomon catheter placement, but is agreeable to following up with me as an outpatient in 2-3 weeks. If the Proteus UTI recurs following a course of antibiotics, he will undergo imaging to check for the presence of urinary calculi. Please notify me if I can be of any further assistance.
[2019-02-16] MEDS: CEFDINIR 300 MG CAP PO SCH (20:03)
[2019-02-16] MEDS: CHOLECALCIFEROL 1,000 UNIT TAB PO SCH (20:03)
[2019-02-17] MEDS: CEFDINIR 300 MG CAP PO SCH (07:08)
[2019-02-17] MEDS: FAMOTIDINE 20 MG TAB PO SCH (07:08)
[2019-02-17] MEDS: POTASSIUM CHLORIDE ER 20 MEQ TAB.ER PO SCH (07:08)
[2019-02-17] MEDS: FOLIC ACID 1 MG TAB PO SCH (07:08)
[2019-02-17] MEDS: ATORVASTATIN 20 MG TAB PO SCH (07:09)
[2019-02-17] MEDS: MULTIVITAMINS, THERA 1 EACH TAB PO SCH (07:09)
[2019-02-17] MEDS: CYANOCOBALAMIN 500 MCG TAB PO SCH (07:09)
[2019-02-17] MEDS: ESCITALOPRAM 5 MG TAB PO SCH (07:09)
[2019-02-17] MEDS: TAMSULOSIN 0.4 MG CAP.ER.24H PO SCH (07:09)
[2019-02-17] MEDS: AZITHROMYCIN 500 MG TAB PO SCH (07:10)
[2019-02-17] MEDS: THIAMINE 100 MG TAB PO SCH ×2 (07:10→15:54)
[2019-02-17] MEDS: METOPROLOL TARTRATE 50 MG TAB PO SCH (07:10)
[2019-02-17] MEDS: FUROSEMIDE 20 MG TAB PO SCH (07:10)
[2019-02-17] MEDS: ALLOPURINOL 100 MG TAB PO SCH (07:10)
[2019-02-17] MEDS: RIVAROXABAN 20 MG TAB PO SCH (07:11)
[2019-02-17 07:54] VITALS: PULSE 78; RESP 16
[2019-02-17 08:01] LABS: ALT 45 U/L (21-72); AST 58 U/L (17-59); African American GFR (CKD) >90 (>60 ml/min/1.73 sqM); Albumin 2.7 g/dL (3.5-5.0); Alkaline Phosphatase 52 U/L (38-126); Anion Gap 6 mmol/L; Blood Urea Nitrogen 20 mg/dL (9-20); Carbon Dioxide 27 mmol/L (22-30); Chloride 104 mmol/L (98-107); Glucose 102 mg/dL (74-99); Potassium 4.2 mmol/L (3.5-5.1); Sodium 137 mmol/L (137-145); Total Bilirubin 0.4 mg/dL (0.2-1.3)
[2019-02-17 08:02] LABS: Basophils % (A) 1 %; Eosinophils # (A) 0.1 k/uL (0-0.7); Eosinophils % (A) 2 %; HCT 31.3 % (39.0-53.0); HGB 10.1 gm/dL (13.0-17.5); Lymphocytes # (A) 1.3 k/uL (1.0-4.8); Lymphocytes % (A) 23 %; MCH 31.9 pg (25.0-35.0); MCHC 32.4 g/dL (31.0-37.0); MCV 98.3 fL (80.0-100.0); Mean Platelet Volume 7.3; Monocytes # (A) 0.5 k/uL (0-1.0); Monocytes % (A) 8 %; Neutrophils # (A) 3.5 k/uL (1.3-7.7); Neutrophils % (A) 64 %; Platelet Count 200 k/uL (150-450); RBC 3.18 m/uL (4.30-5.90); RDW 15.2 % (11.5-15.5); WBC 5.5 k/uL (3.8-10.6)
--- NOTE | 2019-02-17 13:45 | P.DS ---
Providers Date of admission: 02/13/19 20:13 Expected date of discharge: 02/17/19 Attending physician: Randy Doe Consults: 02/13/19 22:39 Consult Physician Routine Consulting Provider: Lc Millard Consult Reason/Comments: DYSURIA, INABILITY TO INSERT LOZA IN ER DUE TO FORESKIN ISSUES Do you want consulting provider notified?: Yes, Notify in am 02/14/19 11:06 Consult Physician Routine Consulting Provider: Tonio Diop Consult Reason/Comments: pneumonia Do you want consulting provider notified?: Yes Primary care physician: Zenobia Au [facility] Course: Discharge diagnosis 1. Generalized weakness with falls: Likely related to UTI and pneumonia, hyponatremia and alcoholism. 2. Community-acquired pneumonia: Continue Omnicef and azithromycin for 5 days 3. UTI: Urine culture growing Proteus mirabilis. Continue Omnicef for 5 days 4. Hyponatremia: Likely secondary to dehydration Sodium level 126 admission now normalized at 137. 5. Hyperkalemia: Potassium 5.6 down to 4.6. Resolved 6. Severe protein calorie malnutrition: Albumin 2.8 add ensure 7. Elevated lactic acid level of 2.2 down to 1.1 with IV fluids. Likely related to dehydration and infectious processes. 8. Hypomagnesemia: Resolved supplement 9. Mildly elevated CK: CK level 435. improved with IV fluids 10. Alcohol abuse: Continue with CIWA protocol with Ativan. Continue thiamine, folic acid, multivitamin 11. History of paroxysmal atrial fibrillation: Anticoagulated with Xarelto 12. Hyperlipidemia continue Lipitor 13. Depression : Hold Lexapro until patient has completed the azithromycin due to drug interaction possibly causing a prolonged QT interval. 14. Iron deficiency anemia: Iron levels are low. Likely a portion of anemia of chronic disease and possibly related to bone marrow suppression due to chronic alcohol use. B12 and folate level normal. 15. Urinary retention: Patient refused Loza catheter. Patient seen by urology they're recommending that he follows up in the office and to do 3 weeks. Patient has been educated that the urinary retention can results and overflow urinary incontinence, recurrent UTIs and upper tract damage. Urology is concerned for possible infected urinary calculi. The recommending antibiotic treatment. If the Proteus UTI recurs following the course of antibiotics patient will undergo further imaging to check for the presence of a urinary calculi per urology. Hospital course This is a 79-year-old male, patient of [facility]. He has a known past medical history of alcohol abuse, atrial fibrillation anticoagulated with Xarelto, hyperlipidemia, depression, myocardial infarction and pacemaker placement. Patient presents to the ER with complaint of generalized weakness and falling at home. Patient does admit to a cough and burning with urination. Chest x-ray had shown a mild infiltrate and atelectasis at the lung bases mostly at the left. Urinalysis is positive for UTI use started on Zithromax and Rocephin in the ER. He had a computed tomography scan of the brain and cervical spine which showed no acute intracranial process and no cervical fractures. Did reveal cerebral atrophy and spondylitic changes of the cervical spine. Patient does report a fall at home 2 days ago. There is no loss of consciousness. He does report laying on the floor until family arrived which may have been for several hours. CK level minimally elevated at 435. Patient's had hyponatremia with a sodium of 126 which is up to 132 with IV fluids potassium 5.6 lactic 2.2 magnesium was 1.5 ammonia level less than 9. Pulmonary service has been placed on consult regarding the pneumonia. Patient had a pelvic x-ray which was negative x-ray of the knees showing swelling on the left no evidence of any fractures. EKG sinus rhythm with occasional PVCs and PACs. Patient denies any fever, chills, sweats, nausea or vomiting or bowel movement changes. He denies any chest pain or shortness of breath. 02/17/2019 patient was covered by the sounds physician group over the weekend. His sodium level improved with IV fluids. He was treated for urinary tract infection and pneumonia. He'll continue 5 more days of the azithromycin and Omnicef. Patient will be discharged to [facility] for further physical therapy. Patient is medical stable for discharge. Has been cleared by [facility] consultant physicians for discharge. I performed an examination of the patient and discussed their management with the physician [employer]. I have reviewed the Physician Adjunct [employer]'s notes and agree with the documented findings and plan of care Patient Condition at Discharge: Stable Plan - Discharge Summary Discharge Rx Participant: Yes New Discharge Prescriptions: New Ferrous Sulfate [Feosol] 325 mg PO BID #60 tab Folic Acid 1 mg PO DAILY #30 tab Multivitamins, Thera [Multivitamin (formulary)] 1 each PO DAILY #30 tab Thiamine [Vitamin B-1] 100 mg PO DAILY #30 tab Azithromycin [Zithromax] 500 mg PO DAILY #5 tab Cefdinir [Omnicef] 300 mg PO Q12HR #10 capsule Continue Cyanocobalamin (Vitamin B-12) [Vitamin B-12] 1,000 mcg PO DAILY Tamsulosin [Flomax] 0.4 mg PO DAILY Rivaroxaban [Xarelto] 20 mg PO DAILY Metoprolol Tartrate [Lopressor] 50 mg PO BID Potassium Chloride [Klor-Con 20] 20 meq PO BID Furosemide [Lasix] 20 mg PO DAILY Atorvastatin [Lipitor] 20 mg PO DAILY Allopurinol [Zyloprim] 100 mg PO BID Cholecalciferol (Vitamin D3) [Vitamin D3] 2,000 unit PO HS Escitalopram [Lexapro] 5 mg PO DAILY Discharge Medication List Allopurinol [Zyloprim] 100 mg PO BID 02/13/19 [History] Atorvastatin [Lipitor] 20 mg PO DAILY 02/13/19 [History] Cholecalciferol (Vitamin D3) [Vitamin D3] 2,000 unit PO HS 02/13/19 [History] Cyanocobalamin (Vitamin B-12) [Vitamin B-12] 1,000 mcg PO DAILY 02/13/19 [History] Furosemide [Lasix] 20 mg PO DAILY 02/13/19 [History] Metoprolol Tartrate [Lopressor] 50 mg PO BID 02/13/19 [History] Potassium Chloride [Klor-Con 20] 20 meq PO BID 02/13/19 [History] Rivaroxaban [Xarelto] 20 mg PO DAILY 02/13/19 [History] Tamsulosin [Flomax] 0.4 mg PO DAILY 02/13/19 [History] Azithromycin [Zithromax] 500 mg PO DAILY #5 tab 02/17/19 [Rx] Cefdinir [Omnicef] 300 mg PO Q12HR #10 capsule 02/17/19 [Rx] Escitalopram [Lexapro] 5 mg PO DAILY 02/17/19 [Rx] Ferrous Sulfate [Feosol] 325 mg PO BID #60 tab 02/17/19 [Rx] Folic Acid 1 mg PO DAILY #30 tab 02/17/19 [Rx] Multivitamins, Thera [Multivitamin (formulary)] 1 each PO DAILY #30 tab 02/17/19 [Rx] Thiamine [Vitamin B-1] 100 mg PO DAILY #30 tab 02/17/19 [Rx] Follow up Appointment(s)/Referral(s): Imelda Hurley MD [STAFF PHYSICIAN] - 1 Week Lc Millard MD [STAFF PHYSICIAN] - 2 Weeks Zenobia Au DO [Primary Care Provider] - 1 Week Ambulatory/Diagnostic Orders: Complete Blood Count w/diff [LAB.AMB] Time Frame: 3 Days, Location: None Selected Activity/Diet/Wound Care/Special Instructions: Diet: Regular Activity: as tolerated ok to discharge to [facility] Discharge Disposition: TRANSFER TO SNF/F
--- NOTE | 2019-02-17 13:52 | P.PN ---
Subjective Progress Note Date: 02/17/19 Principal diagnosis: Acute urinary tract infection secondary to Proteus mirabilis, possible left lower lobe pneumonia This is a pleasant 79-year-old gentleman who follows with Dr. Au as his primary care physician. He is a history of atrial fibrillation anticoagulated with Xarelto, myocardial infarction, hyperlipidemia, cardiomyopathy status post defibrillator placement, depression, BPH, daily alcohol use. He did smoke for over 50 years but quit in 2010. He was brought into the emergency room yesterday for profound weakness. The patient's family states he has been not leaving the house. He's been severely depressed. He's been not eating for the past 2 weeks. He's been sitting and soiling himself without getting up to the bathroom. He did fall at home, not unable to get himself up off the floor. He has abrasions on bilateral knees. X-ray reveals no fracture. He was quite dehydrated. He received 1 L of fluid resuscitation. Currently with a 0.9#800 ML's per hour. Computed tomography scan of the brain revealed no acute abnormality. Chest x-ray reveals left midlung atelectasis and additional area of left basilar atelectasis or pneumonia, small layering left pleural effusion. We are consulted for the same. He is seen today on the regular medical floor. He is laying flat in bed. Awake and alert in no acute distress. Maintaining O2 saturations in the 90s on room air. He's been afebrile. Hemodynamically stable. Denies any worsening shortness of breath, cough or congestion. No fever, chills or night sweats. No hemoptysis. He has been losing weight with ongoing poor appetite. He appears quite dry. White count 6.1. Hemoglobin 10 .4. Creatinine 0.92. Initial lactic acid 2.2 currently 1.1. Troponin negative. ProBNP 1880. Urine with many bacteria. Cultures pending. He's been initiated on DuoNeb inhalations, ceftriaxone and azithromycin, Xarelto. He is in the CIWA protocol. The patient is seen today 02/15/2019 in follow-up on the selective care unit. He is more awake and alert today as compared to yesterday. Denies any worsening shortness of breath, cough or congestion. Continue and O2 saturations in the mid 90s on room air. He's been afebrile. Computed tomography scan of the chest revealed a left lower lobe pneumonia. Urine culture positive for gram-negative bacilli, blood cultures revealing no growth. White count 4.3. Hemoglobin 9.9. Creatinine 0.78. Remains on DuoNeb inhalations, ceftriaxone and azithromycin. Reevaluated today on 02/16/2019, patient is feeling a bit better, however he continues to have generalized weakness. Patient is being treated for urinary tract infection, and possible left lower lobe pneumonia although the findings on the CT of the chest could be chronic, unfortunately no old x-ray or CT of the chest for comparison. The findings are more suggestive of chronic scarring and fibrosis, possibility of new pulmonary process is not entirely ruled out, clinically felt to be less likely, but the patient will definitely need outpatient follow-up, and close observation of the area of the left lower lobe, may consider repeating CT of the chest in the next couple of months, I would also consider bronchoscopy and transbronchial biopsy of the left lower lobe on outpatient basis. On 02/17/2019 patient seen in follow-up on medical surgical floor. He is awake and alert, sitting up in the recliner, in no acute distress, he is on room air, the pulse ox of 95%, afebrile, hemodynamically stable, respirations are even and nonlabored, lung sounds are clear. Patient is being treated for Proteus mirabilis urinary tract infection, which is sensitive to ampicillin and cepha losporins. Urology service is following, patient is currently on ceftriaxone and azithromycin. Denies any shortness of breath, denies any chest pain, CT of the chest findings were suggestive of chronic scarring and fibrosis, however a new pulmonary process was not entirely ruled out although was felt to be less likely clinically patient is asymptomatic. He will need to be followed in outpatient setting with Dr. Obrien for possibility of bronchoscopy and transbronchial biopsy of the left upper lobe on outpatient basis. Objective - Vital Signs Vital signs: Vital Signs Temp 97.6 F 02/17/19 07:02 Pulse 78 02/17/19 07:02 Resp 16 02/17/19 07:02 BP 133/73 02/17/19 07:02 Pulse Ox 95 02/17/19 07:02 Intake & Output 02/16/19 02/17/19 02/17/19 18:59 06:59 18:59 Weight 88 kg 89.5 kg Other: Voiding Method Incontinent Incontinent # Voids 1 2 # Bowel Movements 1 - Exam GENERAL EXAM: Alert, doesn't, 79-year-old white male, sitting up in the re cliner, comfortable in no apparent distress. HEAD: Normocephalic/atraumatic. EYES: Normal reaction of pupils, equal size. Conjunctiva pink, sclera white. NOSE: Clear with pink turbinates. THROAT: No erythema or exudates. NECK: No masses, no JVD, no thyroid enlargement, no adenopathy. CHEST: No chest wall deformity. Symmetrical expansion. LUNGS: Equal air entry with no crackles, wheeze, rhonchi or dullness. CVS: Regular rate and rhythm, normal S1 and S2, no gallops, no murmurs, no rubs ABDOMEN: Soft, nontender. No hepatosplenomegaly, normal bowel sounds, no guarding or rigidity. EXTREMITIES: No clubbing, no edema, no cyanosis, 2+ pulses and upper and lower extremities. MUSCULOSKELETAL: Muscle strength and tone normal. SPINE: No scoliosis or deformity SKIN: No rashes CENTRAL NERVOUS SYSTEM: Alert and oriented -3. No focal deficits, tone is normal in all 4 extremities. PSYCHIATRIC: Alert and oriented -3. Appropriate affect. Intact judgment and insight. - Labs CBC & Chem 7: 19 06:59 19 06:59 Labs: Abnormal Lab Results - Last 24 Hours (Table) 02/17/19 02/17/19 Range/Units 06:59 06:59 RBC 3.18 L (4.30-5.90) m/uL Hgb 10.1 L (13.0-17.5) gm/dL Hct 31.3 L (39.0-53.0) % Glucose 102 H (74-99) mg/dL Total Protein 6.0 L (6.3-8.2) g/dL Albumin 2.7 L (3.5-5.0) g/dL Microbiology - Last 24 Hours (Table) 02/13/19 20:35 Blood Culture - Preliminary Blood No Growth after 72 hours Assessment and Plan Plan: Assessment: #1 Profound weakness with acute Proteus mirabilis urinary tract infection #2 Daily heavy alcohol use. #3 Hyponatremia. Likely secondary to alcohol abuse. #4 Depression. #5 Atrial fibrillation, anticoagulated with Xarelto. #6 Left lower lung pneumonia. The findings on the left lower lobe could be acute or could be chronic, I reviewed the CT of the chest, and unfortunately no old x-rays or CT of the chest for comparison. I have a feeling that the fin dings are likely chronic related to previous pneumonia and what we are seeing is mostly scarring in the left lower lobe. However the patient was made aware that he would need a close follow-up on outpatient basis, may eventually repeat CT of the chest and even consider bronchoscopy and biopsy of the left lower lobe. This could be done on outpatient basis. #7 50+ year smoking history, quit 2010. #8 History of myocardial infarction. #9 Ischemic cardiomyopathy status post AICD placement #10 Poor overall functional performance based on the above-mentioned multiple comorbidities. Plan: The pulmonary perspective patient is stable, asymptomatic, no fever, hemodynamically stable, no cough or congestion. He can be considered for discharge to subacute rehab or home today, on outpatient course of a bias, he will need outpatient follow-up with Dr. Obrien in the office in regards to left lower lobe consolidation. I performed a history & physical examination of the patient and discussed their management with my nurse practitioner, Radha Nunes. I reviewed the nurse practitioner's note and agree with the documented findings and plan of care. Lung sounds are positive for clear breath sounds, diminished at the bases. The findings and the impression was discussed with the patient. I attest to the documentation by the nurse practitioner. Time with Patient: Less than 30
[2019-02-17 15:22] VITALS: BP 164/77; TEMP 97.7
== END 2019-02-17 17:14 | DRG 193 ==
LOC: EC 16:51 → 4SSUR 20:13
PROVIDERS: ADMIT Internal Medicine; ATTEND Internal Medicine
DX: J15.9 Unspecified bacterial pneumonia (principal); E43 Unspecified severe protein-calorie malnutrition; E87.1 Hypo-osmolality and hyponatremia; J98.11 Atelectasis; M62.82 Rhabdomyolysis; N39.0 Urinary tract infection, site not specified; E87.2 Acidosis; B96.4 Proteus (mirabilis) (morganii) as the cause of diseases classified elsewhere; D50.9 Iron deficiency anemia, unspecified; D63.8 Anemia in other chronic diseases classified elsewhere; E78.5 Hyperlipidemia, unspecified; E83.42 Hypomagnesemia; Z68.29 Body mass index [BMI] 29.0-29.9, adult; E86.0 Dehydration; E87.5 Hyperkalemia; F10.20 Alcohol dependence, uncomplicated; F32.9 Major depressive disorder, single episode, unspecified; I25.2 Old myocardial infarction; I25.5 Ischemic cardiomyopathy; I48.0 Paroxysmal atrial fibrillation; I49.3 Ventricular premature depolarization; I50.9 Heart failure, unspecified; N47.1 Phimosis; N40.1 Benign prostatic hyperplasia with lower urinary tract symptoms; N39.498 Other specified urinary incontinence; R33.8 Other retention of urine; S80.211A Abrasion, right knee, initial encounter; S80.212A Abrasion, left knee, initial encounter; W19.XXXA Unspecified fall, initial encounter; Y92.009 Unspecified place in unspecified non-institutional (private) residence as the place of occurrence of the external cause; Z79.01 Long term (current) use of anticoagulants; Z79.899 Other long term (current) drug therapy; Z83.3 Family history of diabetes mellitus; Z87.01 Personal history of pneumonia (recurrent); Z87.891 Personal history of nicotine dependence; Z95.810 Presence of automatic (implantable) cardiac defibrillator; Z82.3 Family history of stroke; Z83.79 Family history of other diseases of the digestive system; I49.1 Atrial premature depolarization
CPT/HCPCS: 36415; 70450; 71046; 71260; 72125; 72170; 80053; 81001; 82140; 82550; 82607; 82728; 82746; 83540; 83550; 83605; 83690; 83735; 83880; 84100; 84443; 84484; 85025; 85610; 85730; 87040; 87077; 87086; 87186; 93005; 94640; 96361; 96365; 99285

== ENCOUNTER 2019-03-10 08:04 | Inpatient (IN) | payer MEDICARE ==
[2019-03-10] MEDS ORDERED: SODIUM CHLORIDE 0.9% 1,000 ML IV STA ×2 (08:14)
--- NOTE | 2019-03-10 08:15 | ED ---
Weakness HPI - General Chief complaint: Weakness Stated complaint: Weakness Time Seen by Provider: 03/10/19 08:07 Source: patient, EMS, RN notes reviewed, old records reviewed Mode of arrival: EMS Limitations: no limitations - History of Present Illness Initial comments: This is an 79-year-old male the ER for evaluation presents today for evaluation regards to weakness. Patient's poor strain history of alcoholism. Patient having significant bloody bowel movements here in the ER, significantly weak dehydrated not feeling well. Patient is on blood thinners. No other significant complaints, no abdominal pain. No nausea vomiting. MD Complaint: generalized weakness, lack of energy -: minutes(s) Location: generalized Severity: moderate Severity scale (1-10): 4 Consistency: constant Improves with: none Worsens with: none Context: history of similar - Related Data Home Medications Medication Instructions Recorded Confirmed Allopurinol [Zyloprim] 100 mg PO DAILY 02/13/19 03/10/19 Atorvastatin [Lipitor] 20 mg PO DAILY 02/13/19 03/10/19 Cholecalciferol (Vitamin D3) 2,000 unit PO HS 02/13/19 03/10/19 [Vitamin D3] Cyanocobalamin (Vitamin B-12) 1,000 mcg PO DAILY 02/13/19 03/10/19 [Vitamin B-12] Furosemide [Lasix] 20 mg PO DAILY 02/13/19 03/10/19 Metoprolol Tartrate [Lopressor] 50 mg PO BID 02/13/19 03/10/19 Potassium Chloride [Klor-Con 20] 20 meq PO BID 02/13/19 03/10/19 Rivaroxaban [Xarelto] 20 mg PO DAILY 02/13/19 03/10/19 Tamsulosin [Flomax] 0.4 mg PO DAILY 02/13/19 03/10/19 Magnesium Oxide 500mg 500 mg PO HS 03/10/19 03/10/19 Previous Rx's Medication Instructions Recorded Escitalopram [Lexapro] 5 mg PO DAILY 02/17/19 Allergies Allergy/AdvReac Type Severity Reaction Status Date / Time bee venom protein (honey bee) Allergy Anaphylaxis Verified 03/10/19 08:43 Review of Systems ROS Statement: Those systems with pertinent positive or pertinent negative responses have been documented in the HPI. ROS Other: All systems not noted in ROS Statement are negative. Past Medical History Past Medical History: Atrial Fibrillation, Heart Failure, Myocardial Infarction ([place]), Pneumonia Additional Past Medical History / Comment(s): alcoholic, Last Myocardial Infarction Date:: 2010 History of Any Multi-Drug Resistant Organisms: C-DIFF Date of last positivie culture/infection: 2014 MDRO Source:: stool Past Surgical History: Cardiac Ablation, Pacemaker Additional Past Surgical History / Comment(s): defibrilator Type of Cardiac Device: Permanent Pacemaker, AICD Device Placement Date:: 2010 Past Psychological History: Depression Smoking Status: Never smoker Past Alcohol Use History: Daily, Heavy Past Drug Use History: None Reported - Past Family History Mother Family Medical History: CVA/TIA, Diabetes Mellitus Father Family Medical History: CVA/TIA, GI Bleed General Exam Limitations: no limitations General appearance: alert, in no apparent distress Head exam: Present: atraumatic, normocephalic, normal inspection Eye exam: Present: normal appearance, PERRL, EOMI. Absent: scleral icterus, conjunctival injection, periorbital swelling ENT exam: Present: normal exam, mucous membranes moist Neck exam: Present: normal inspection. Absent: tenderness, meningismus, lymphadenopathy Respiratory exam: Present: normal lung sounds bilaterally. Absent: respiratory distress, wheezes, rales, rhonchi, stridor Cardiovascular Exam: Present: normal rhythm, tachycardia, normal heart sounds. Absent: systolic murmur, diastolic murmur, rubs, gallop, clicks GI/Abdominal exam: Present: soft, normal bowel sounds. Absent: distended, tenderness, guarding, rebound, rigid Rectal exam: Present: heme (+) stool, black stool, bloody stool Extremities exam: Present: normal inspection, full ROM, normal capillary refill. Absent: tenderness, pedal edema, joint swelling, calf tenderness Back exam: Present: normal inspection Neurological exam: Present: alert, oriented X3, CN II-XII intact Psychiatric exam: Present: normal affect, normal mood Skin exam: Present: warm, dry, intact, normal color. Absent: rash Course Vital Signs 03/10/19 03/10/19 03/10/19 08:06 08:30 08:31 Temperature 98.2 F Pulse Rate 120 H 133 H Pulse Rate [ 120 H Relief Man ] Respiratory 20 27 H Rate Blood Pressure 94/58 94/58 O2 Sat by Pulse 94 L Oximetry 0703/10/19 03/10/19 09:30 10:00 10:39 Temperature Pulse Rate 120 H 113 H 118 H Pulse Rate [ Relief Man ] Respiratory 18 13 18 Rate Blood Pressure 106/76 95/62 110/82 O2 Sat by Pulse 98 98 100 Oximetry - Reevaluation(s) Reevaluation #1: 03/10/19 10:41 Medical record is reviewed Reevaluation #2: 03/10/19 10:41 Patient is significant bloody bowel movements here in the ER, melanotic stool EKG Findings - EKG Comments: EKG Findings:: EKG shows sinus tachycardia rate of 118, NH 170, QRS 98, QTc 456 Medical Decision Making - Medical Decision Making 79 male the ER for evaluation severe weakness, severe GI bleed leela melanotic stool here in the ER, patient will be admitted for transfusion and hemodynamic monitoring - Lab Data Result diagrams: 03/10/19 08:18 03/10/19 08:18 Lab Results 03/10/19 03/10/19 03/10/19 Range/Units 08:15 08:18 08:18 WBC 6.2 (3.8-10.6) k/uL RBC 2.61 L (4.30-5.90) m/uL Hgb 7.8 L D (13.0-17.5) gm/dL Hct 26.4 L (39.0-53.0) % MCV 100.9 H (80.0-100.0) fL MCH 29.8 (25.0-35.0) pg MCHC 29.5 L (31.0-37.0) g/dL RDW 15.4 (11.5-15.5) % Plt Count 230 (150-450) k/uL Neutrophils % 70 % Lymphocytes % 23 % Monocytes % 4 % Eosinophils % 1 % Basophils % 0 % Neutrophils # 4.3 (1.3-7.7) k/uL Lymphocytes # 1.5 (1.0-4.8) k/uL Monocytes # 0.3 (0-1.0) k/uL Eosinophils # 0.1 (0-0.7) k/uL Basophils # 0.0 (0-0.2) k/uL Hypochromasia Slight Macrocytosis Slight PT (9.0-12.0) sec INR (<1.2) APTT (22.0-30.0) sec Sodium 139 (137-145) mmol/L Potassium 4.6 (3.5-5.1) mmol/L Chloride 109 H (98-107) mmol/L Carbon Dioxide 21 L (22-30) mmol/L Anion Gap 9 mmol/L BUN 32 H (9-20) mg/dL Creatinine 0.79 (0.66-1.25) mg/dL Est GFR (CKD-EPI)AfAm >90 (>60 ml/min/1.73 sqM) Est GFR (CKD-EPI)NonAf 85 (>60 ml/min/1.73 sqM) Glucose 135 H (74-99) mg/dL Plasma Lactic Acid Lemuel (0.7-2.0) mmol/L Calcium 8.6 (8.4-10.2) mg/dL Phosphorus 3.7 (2.5-4.5) mg/dL Magnesium 1.6 (1.6-2.3) mg/dL Total Bilirubin 0.4 (0.2-1.3) mg/dL AST 19 (17-59) U/L ALT 18 L (21-72) U/L Alkaline Phosphatase 58 (38-126) U/L Creatine Kinase 23 L (55-170) U/L Troponin I (0.000-0.034) ng/mL NT-Pro-B Natriuret Pep pg/mL Total Protein 5.6 L (6.3-8.2) g/dL Albumin 2.5 L (3.5-5.0) g/dL TSH 2.940 (0.465-4.680) mIU/L Stool Occult Blood (Negative) Blood Type Recheck CABO Indicated 03/10/19 03/10/19 03/10/19 Range/Units 08:18 08:18 08:18 WBC (3.8-10.6) k/uL RBC (4.30-5.90) m/uL Hgb (13.0-17.5) gm/dL Hct (39.0-53.0) % MCV (80.0-100.0) fL MCH (25.0-35.0) pg MCHC (31.0-37.0) g/dL RDW (11.5-15.5) % Plt Count (150-450) k/uL Neutrophils % % Lymphocytes % % Monocytes % % Eosinophils % % Basophils % % Neutrophils # (1.3-7.7) k/uL Lymphocytes # (1.0-4.8) k/uL Monocytes # (0-1.0) k/uL Eosinophils # (0-0.7) k/uL Basophils # (0-0.2) k/uL Hypochromasia Macrocytosis PT 14.1 H (9.0-12.0) sec INR 1.4 H (<1.2) APTT 26.4 (22.0-30.0) sec Sodium (137-145) mmol/L Potassium (3.5-5.1) mmol/L Chloride (98-107) mmol/L Carbon Dioxide (22-30) mmol/L Anion Gap mmol/L BUN (9-20) mg/dL Creatinine (0.66-1.25) mg/dL Est GFR (CKD-EPI)AfAm (>60 ml/min/1.73 sqM) Est GFR (CKD-EPI)NonAf (>60 ml/min/1.73 sqM) Glucose (74-99) mg/dL Plasma Lactic Acid Lemuel 4.5 H* (0.7-2.0) mmol/L Calcium (8.4-10.2) mg/dL Phosphorus (2.5-4.5) mg/dL Magnesium (1.6-2.3) mg/dL Total Bilirubin (0.2-1.3) mg/dL AST (17-59) U/L ALT (21-72) U/L Alkaline Phosphatase (38-126) U/L Creatine Kinase (55-170) U/L Troponin I (0.000-0.034) ng/mL NT-Pro-B Natriuret Pep 1740 pg/mL Total Protein (6.3-8.2) g/dL Albumin (3.5-5.0) g/dL TSH (0.465-4.680) mIU/L Stool Occult Blood (Negative) Blood Type Recheck 03/10/19 03/10/19 Range/Units 08:18 10:10 WBC (3.8-10.6) k/uL RBC (4.30-5.90) m/uL Hgb (13.0-17.5) gm/dL Hct (39.0-53.0) % MCV (80.0-100.0) fL MCH (25.0-35.0) pg MCHC (31.0-37.0) g/dL RDW (11.5-15.5) % Plt Count (150-450) k/uL Neutrophils % % Lymphocytes % % Monocytes % % Eosinophils % % Basophils % % Neutrophils # (1.3-7.7) k/uL Lymphocytes # (1.0-4.8) k/uL Monocytes # (0-1.0) k/uL Eosinophils # (0-0.7) k/uL Basophils # (0-0.2) k/uL Hypochromasia Macrocytosis PT (9.0-12.0) sec INR (<1.2) APTT (22.0-30.0) sec Sodium (137-145) mmol/L Potassium (3.5-5.1) mmol/L Chloride (98-107) mmol/L Carbon Dioxide (22-30) mmol/L Anion Gap mmol/L BUN (9-20) mg/dL Creatinine (0.66-1.25) mg/dL Est GFR (CKD-EPI)AfAm (>60 ml/min/1.73 sqM) Est GFR (CKD-EPI)NonAf (>60 ml/min/1.73 sqM) Glucose (74-99) mg/dL Plasma Lactic Acid Lemuel (0.7-2.0) mmol/L Calcium (8.4-10.2) mg/dL Phosphorus (2.5-4.5) mg/dL Magnesium (1.6-2.3) mg/dL Total Bilirubin (0.2-1.3) mg/dL AST (17-59) U/L ALT (21-72) U/L Alkaline Phosphatase (38-126) U/L Creatine Kinase (55-170) U/L Troponin I 0.016 (0.000-0.034) ng/mL NT-Pro-B Natriuret Pep pg/mL Total Protein (6.3-8.2) g/dL Albumin (3.5-5.0) g/dL TSH (0.465-4.680) mIU/L Stool Occult Blood Positive (Negative) Blood Type Recheck - Radiology Data Radiology results: report reviewed (Chest x-rays negative for acute disease), image reviewed Critical Care Time Critical Care Time: Yes Total Critical Care Time: 31 Disposition Clinical Impression: Weakness, GI bleed, Coagulopathy Disposition: ADMITTED IP TO THIS [facility] Condition: Serious Is patient prescribed a controlled substance at d/c from ED?: No Referrals: Nonstaff,Physician [REFERRING] - 1-2 days
[2019-03-10 08:34] LABS: Basophils % (A) 0 %; Eosinophils # (A) 0.1 k/uL (0-0.7); Eosinophils % (A) 1 %; HCT 26.4 % (39.0-53.0); Hypochromasia Slight; Lymphocytes # (A) 1.5 k/uL (1.0-4.8); Lymphocytes % (A) 23 %; MCH 29.8 pg (25.0-35.0); MCHC 29.5 g/dL (31.0-37.0); MCV 100.9 fL (80.0-100.0); Macrocytosis Slight; Mean Platelet Volume 7.7; Monocytes # (A) 0.3 k/uL (0-1.0); Monocytes % (A) 4 %; Neutrophils # (A) 4.3 k/uL (1.3-7.7); Neutrophils % (A) 70 %; Platelet Count 230 k/uL (150-450); RBC 2.61 m/uL (4.30-5.90); RDW 15.4 % (11.5-15.5); WBC 6.2 k/uL (3.8-10.6)
[2019-03-10 08:38] LABS: HGB 7.8 gm/dL (13.0-17.5)
[2019-03-10 08:42] LABS: INR 1.4 (<1.2); Partial Thromboplastin Time 26.4 sec (22.0-30.0); Prothrombin Time 14.1 sec (9.0-12.0)
--- NOTE | 2019-03-10 08:44 | XR ---
EXAMINATION TYPE: XR chest 2V DATE OF EXAM: 03/10/2019 COMPARISON: 02/14/2019 INDICATION: Weakness short of breath TECHNIQUE: Frontal and lateral views of the chest are obtained. FINDINGS: The heart size is normal. The pulmonary vasculature is normal. Left lower lobe infiltrate is present. There is silhouetting left diaphragm. This appears smaller norberto n the comparison study. Pacemaker overlies left chest.. IMPRESSION: 1. Small residual or recurrent left lower lobe infiltrate. Correlate for pneumonia.
[2019-03-10 09:08] LABS: ALT 18 U/L (21-72); AST 19 U/L (17-59); African American GFR (CKD) >90 (>60 ml/min/1.73 sqM); Albumin 2.5 g/dL (3.5-5.0); Alkaline Phosphatase 58 U/L (38-126); Anion Gap 9 mmol/L; Blood Urea Nitrogen 32 mg/dL (9-20); Calcium 8.6 mg/dL (8.4-10.2); Carbon Dioxide 21 mmol/L (22-30); Chloride 109 mmol/L (98-107); Creatine Kinase 23 U/L (55-170); Glucose 135 mg/dL (74-99); Magnesium 1.6 mg/dL (1.6-2.3); Phosphorus 3.7 mg/dL (2.5-4.5); Potassium 4.6 mmol/L (3.5-5.1); Sodium 139 mmol/L (137-145); Total Bilirubin 0.4 mg/dL (0.2-1.3); Total Protein 5.6 g/dL (6.3-8.2)
[2019-03-10] MEDS ORDERED: Kcentra PER PHARMACY 1 EACH MISC MISCELLANE PRN (10:02)
[2019-03-10] MEDS ORDERED: HUMAN PROTHROMBIN COMPLX IV ONE (10:15)
[2019-03-10] MEDS ORDERED: NALOXONE 0.4 MG/ML 1 ML VIAL IV PRN (10:37)
[2019-03-10] MEDS ORDERED: ONDANSETRON 4 MG/2 ML VIAL IVP PRN (10:39)
[2019-03-10 11:35] VITALS: BMI 25.4
[2019-03-10 12:16] LABS: Appearance,Urine Cloudy (Clear); Bilirubin,Urine Negative (Negative); Blood,Urine Large (Negative); Color,Urine Red; Glucose,Urine (UA) Negative (Negative); Ketones,Urine Trace (Negative); Leukocyte Esterase,Urine Large (Negative); Mucus,Urine Moderate /hpf; Nitrite,Urine Negative (Negative); PH, Urine 6.5 (5.0-8.0); Protein,Urine 1+ (Negative); RBC,Urine >182 /hpf (0-5); Specific Gravity,Urine 1.018 (1.001-1.035); Urobilinogen,Urine <2.0 mg/dL (<2.0); WBC,Urine >182 /hpf (0-5)
[2019-03-10 13:04] LABS: Anisocytosis Slight; Basophils % (A) 0 %; Eosinophils % (A) 0 %; HCT 22.9 % (39.0-53.0); HGB 7.3 gm/dL (13.0-17.5); Hypochromasia Slight; Lymphocytes # (A) 1.5 k/uL (1.0-4.8); Lymphocytes % (A) 26 %; MCH 31.5 pg (25.0-35.0); MCHC 31.6 g/dL (31.0-37.0); MCV 99.5 fL (80.0-100.0); Macrocytosis Slight; Mean Platelet Volume 7.8; Monocytes # (A) 0.3 k/uL (0-1.0); Monocytes % (A) 5 %; Neutrophils # (A) 3.9 k/uL (1.3-7.7); Neutrophils % (A) 68 %; Platelet Count 185 k/uL (150-450); RBC 2.31 m/uL (4.30-5.90); RDW 16.3 % (11.5-15.5); WBC 5.7 k/uL (3.8-10.6)
[2019-03-10] MEDS ORDERED: diphenhydrAMINE 50 MG/ML 1 ML VIAL IVP STA (17:07)
[2019-03-10] MEDS ORDERED: ACETAMINOPHEN TAB 325 MG TAB PO PRN (17:08)
[2019-03-10] MEDS ORDERED: Magnesium Replacement Protocol 1 EACH MISC MISCELLANE PRN (17:22)
[2019-03-10] MEDS ORDERED: PANTOPRAZOLE 40 MG/10 ML VIAL IV SCH (17:28)
[2019-03-10] MEDS: MAGNESIUM SULFATE-D5W PMX 1 GM in DEXTROSE/WATER 1 100ML.BAG IVPB SCH ×2 (17:44→19:02)
[2019-03-10 18:50] LABS: Anisocytosis Slight; Basophils % (A) 0 %; Eosinophils % (A) 1 %; HCT 23.5 % (39.0-53.0); HGB 7.6 gm/dL (13.0-17.5); Hypochromasia Slight; Lymphocytes # (A) 1.9 k/uL (1.0-4.8); Lymphocytes % (A) 35 %; MCH 31.6 pg (25.0-35.0); MCHC 32.4 g/dL (31.0-37.0); MCV 97.3 fL (80.0-100.0); Macrocytosis Slight; Mean Platelet Volume 7.5; Monocytes # (A) 0.4 k/uL (0-1.0); Monocytes % (A) 7 %; Neutrophils % (A) 55 %; Platelet Count 186 k/uL (150-450); RBC 2.41 m/uL (4.30-5.90); RDW 17.4 % (11.5-15.5); WBC 5.5 k/uL (3.8-10.6)
[2019-03-10] MEDS ORDERED: ACETAMINOPHEN TAB 325 MG TAB PO ONE (19:04)
[2019-03-10] MEDS ORDERED: diphenhydrAMINE 50 MG/ML 1 ML VIAL IVP ONE (19:04)
--- NOTE | 2019-03-10 20:07 | P.HPIM ---
History of Present Illness H&P Date: 03/10/19 Chief Complaint: weakness Steven Hussein is an 79 yo M with PMH significant for alcohol abuse, a fib on xarelto, AR with pacemaker in place, HLD, depression who presented to [facility] ED for weakness. Pt was recently admitted for CAP and discharged 02/13 and subsequently had a stay at [facility]. He had been back home for about a week. He states he had a significant nosebleed last night which lasted for >30 mins. This eventually resolved on its own. This morning he was on the commode and became lightheaded and profoundly weak so EMS was called. In the ED he passed two large melenotic stools. Pt denies hematochezia or melena at home but states he does not pay attention to stools. Pt also complains that the foreskin of his penis is painful and he is unable to retract it around the head of his penis. He has seen urology once and was going to follow up outpatient for circumcision. He has been compliant with xarelto. Pt has never had a colonoscopy before. He denies chest pain or shortness of breath. In the ED Hgb 7.3, WBC 5, vitals stable. CXR with residual LLL infiltrate consistent with resolving pneumonia. Review of Systems All systems: negative Constitutional: Reports lethargy, Reports malaise, Reports weakness, Denies chills, Denies fever Eyes: denies blurred vision, denies pain Ears, nose, mouth and throat: Denies headache, Denies sore throat Cardiovascular: Denies chest pain, Denies shortness of breath Respiratory: Denies cough Gastrointestinal: Reports melena, Denies abdominal pain, Denies diarrhea, Denies nausea, Denies vomiting Musculoskeletal: Denies myalgias Integumentary: Denies pruritus, Denies rash Neurological: Denies numbness, Denies weakness Psychiatric: Denies anxiety, Denies depression Endocrine: Denies fatigue, Denies weight change Past Medical History Past Medical History: Atrial Fibrillation, Heart Failure, GERD/Reflux, Hyperlipidemia, Myocardial Infarction ([place]), Pneumonia Additional Past Medical History / Comment(s): Pt recently admitted to [facility] on 02/13/19 with generalized weakness/falls/UTI/ CAP/ ETOH/hyponatremia/hyperkalemia/hypomagnesemia/increased lactic acid/severe protein calorie malnutrition and urinary retention. Other hx: Paroxysmal Afib, ETOH abuse, iron anemia, urinary retention-has appt with urologist 03/20/19, gout R foot Last Myocardial Infarction Date:: 2010 History of Any Multi-Drug Resistant Organisms: C-DIFF Date of last positivie culture/infection: 2014 MDRO Source:: stool Past Surgical History: AICD, Cardiac Ablation Additional Past Surgical History / Comment(s): Bilateral cataract removals/lens implants. Past Anesthesia/Blood Transfusion Reactions: No Reported Reaction Type of Cardiac Device: AICD Device Placement Date:: 2010 Smoking Status: Former smoker - Past Family History Mother Family Medical History: CVA/TIA, Diabetes Mellitus Additional Family Medical History / Comment(s): Mother had "severe" diabetes and a CVA. Father Family Medical History: CVA/TIA, GI Bleed Additional Family Medical History / Comment(s): Father had a CVA Medications and Allergies Home Medications Medication Instructions Recorded Confirmed Type Allopurinol [Zyloprim] 100 mg PO DAILY 02/13/19 03/10/19 History Atorvastatin [Lipitor] 20 mg PO DAILY 02/13/19 03/10/19 History Cholecalciferol (Vitamin D3) 2,000 unit PO HS 02/13/19 03/10/19 History [Vitamin D3] Cyanocobalamin (Vitamin B-12) 1,000 mcg PO DAILY 02/13/19 03/10/19 History [Vitamin B-12] Furosemide [Lasix] 20 mg PO DAILY 02/13/19 03/10/19 History Metoprolol Tartrate [Lopressor] 50 mg PO BID 02/13/19 03/10/19 History Potassium Chloride [Klor-Con 20] 20 meq PO BID 02/13/19 03/10/19 History Rivaroxaban [Xarelto] 20 mg PO DAILY 02/13/19 03/10/19 History Tamsulosin [Flomax] 0.4 mg PO DAILY 02/13/19 03/10/19 History Escitalopram [Lexapro] 5 mg PO DAILY 02/17/19 03/10/19 Rx Magnesium Oxide 500mg 500 mg PO HS 03/10/19 03/10/19 History Allergies Allergy/AdvReac Type Severity Reaction Status Date / Time bee venom protein (honey bee) Allergy Anaphylaxis Verified 03/10/19 08:43 Physical Exam Vitals: Vital Signs Temp Pulse Pulse Resp BP BP Pulse Ox 03/10/19 19:32 100 03/10/19 17:12 100.3 F H 111 H 16 132/72 100 03/10/19 16:52 100.3 F H 111 H 16 132/72 100 03/10/19 16:00 100.3 F H 111 H 16 132/72 100 03/10/19 15:19 99.9 F H 16 103/63 100 03/10/19 14:49 99.1 F 112 H 16 114/61 100 03/10/19 14:39 98.7 F 116 H 16 108/64 03/10/19 12:00 97.8 F 121 H 18 97/58 03/10/19 11:52 111 H 18 111/68 95 03/10/19 10:39 118 H 18 110/82 100 03/10/19 10:00 113 H 13 95/62 98 03/10/19 09:30 120 H 18 106/76 98 03/10/19 08:31 120 H 03/10/19 08:30 133 H 27 H 94/58 94 L 03/10/19 08:06 98.2 F 120 H 20 94/58 Intake and Output 03/10/19 03/10/19 03/10/19 06:59 14:59 22:59 Intake Total 222 310 Balance 222 310 Intake: Oral 222 Blood Product 0 310 Rc Irr As1 Unit 0 310 [id number] Other: Voiding Method Urinal Urinal Weight 75.75 kg General: well nourished, well developed, NAD. Vitals reviewed Eyes: PERRL, EOMI, conjunctiva pale HENT: normocephalic, mucus membranes moist Neck: supple, no JVD Lungs: normal respiratory effort, no wheezes or rales CV: Irregularly irregular, no murmur. Peripheral pulses 2+ Abdomen: soft, nondistended, no organomegaly Lymph: no cervical or axillary LAD Skin: warm and dry. : head of penis with scant blood, unable to retract foreskin around head Neuro: A&Ox3, normal mood and affect Results CBC & Chem 7: 03/10/19 18:30 03/10/19 08:18 Labs: Abnormal Lab Results - Last 24 Hours (Table) 03/10/19 03/10/19 03/10/19 Range/Units 08:15 08:18 08:18 RBC 2.61 L (4.30-5.90) m/uL Hgb 7.8 L D (13.0-17.5) gm/dL Hct 26.4 L (39.0-53.0) % MCV 100.9 H (80.0-100.0) fL MCHC 29.5 L (31.0-37.0) g/dL RDW (11.5-15.5) % PT (9.0-12.0) sec INR (<1.2) Chloride 109 H (98-107) mmol/L Carbon Dioxide 21 L (22-30) mmol/L BUN 32 H (9-20) mg/dL Glucose 135 H (74-99) mg/dL Plasma Lactic Acid Lemuel (0.7-2.0) mmol/L ALT 18 L (21-72) U/L Creatine Kinase 23 L (55-170) U/L Total Protein 5.6 L (6.3-8.2) g/dL Albumin 2.5 L (3.5-5.0) g/dL Urine Protein (Negative) Urine Ketones (Negative) Urine Blood (Negative) Ur Leukocyte Esterase (Negative) Urine RBC (0-5) /hpf Urine WBC (0-5) /hpf Urine Mucus (None) /hpf Crossmatch See Detail 03/10/19 03/10/19 03/10/19 Range/Units 08:18 08:18 11:43 RBC (4.30-5.90) m/uL Hgb (13.0-17.5) gm/dL Hct (39.0-53.0) % MCV (80.0-100.0) fL MCHC (31.0-37.0) g/dL RDW (11.5-15.5) % PT 14.1 H (9.0-12.0) sec INR 1.4 H (<1.2) Chloride (98-107) mmol/L Carbon Dioxide (22-30) mmol/L BUN (9-20) mg/dL Glucose (74-99) mg/dL Plasma Lactic Acid Lemuel 4.5 H* (0.7-2.0) mmol/L ALT (21-72) U/L Creatine Kinase (55-170) U/L Total Protein (6.3-8.2) g/dL Albumin (3.5-5.0) g/dL Urine Protein 1+ H (Negative) Urine Ketones Trace H (Negative) Urine Blood Large H (Negative) Ur Leukocyte Esterase Large H (Negative) Urine RBC >182 H (0-5) /hpf Urine WBC >182 H (0-5) /hpf Urine Mucus Moderate H (None) /hpf Crossmatch 03/10/19 03/10/19 Range/Units 12:49 18:30 RBC 2.31 L 2.41 L (4.30-5.90) m/uL Hgb 7.3 L 7.6 L (13.0-17.5) gm/dL Hct 22.9 L 23.5 L (39.0-53.0) % MCV (80.0-100.0) fL MCHC (31.0-37.0) g/dL RDW 16.3 H 17.4 H (11.5-15.5) % PT (9.0-12.0) sec INR (<1.2) Chloride (98-107) mmol/L Carbon Dioxide (22-30) mmol/L BUN (9-20) mg/dL Glucose (74-99) mg/dL Plasma Lactic Acid Lemuel (0.7-2.0) mmol/L ALT (21-72) U/L Creatine Kinase (55-170) U/L Total Protein (6.3-8.2) g/dL Albumin (3.5-5.0) g/dL Urine Protein (Negative) Urine Ketones (Negative) Urine Blood (Negative) Ur Leukocyte Esterase (Negative) Urine RBC (0-5) /hpf Urine WBC (0-5) /hpf Urine Mucus (None) /hpf Crossmatch Microbiology - Last 24 Hours (Table) 03/10/19 11:43 Urine Culture - Preliminary Urine,Voided Thrombosis Risk Factor Assmnt - Choose All That Apply Any of the Below Risk Factors Present?: Yes Each Factor Represents 1 point: Serious lung disease incl. pneumonia (< 1month) Other Risk Factors: Yes Each Risk Factor Represents 3 Points: Age 75 years or older Other congenital or acquired thrombophilia - If yes, enter type in comment: No Thrombosis Risk Factor Assessment Total Risk Factor Score: 4 Thrombosis Risk Factor Assessment Level: Moderate Risk Assessment and Plan (1) GI bleed Current Visit: Yes Status: Acute Code(s): K92.2 - GASTROINTESTINAL HEMORRHAGE, UNSPECIFIED SNOMED Code(s): 83389707 (2) Atrial fibrillation Current Visit: Yes Status: Acute Code(s): I48.91 - UNSPECIFIED ATRIAL FIBRILLATION SNOMED Code(s): 96557718 (3) Alcoholism Current Visit: No Status: Acute Code(s): F10.20 - ALCOHOL DEPENDENCE, UNCOMPLICATED SNOMED Code(s): 1093713 (4) Phimosis Current Visit: No Status: Acute Code(s): N47.1 - PHIMOSIS SNOMED Code(s): 689122383 (5) Hypomagnesemia Current Visit: Yes Status: Acute Code(s): E83.42 - HYPOMAGNESEMIA SNOMED Code(s): 283351686 (6) Melena Current Visit: Yes Status: Acute Code(s): K92.1 - MELENA SNOMED Code(s): 3994635 (7) Acute blood loss anemia Current Visit: Yes Status: Acute Code(s): D62 - ACUTE POSTHEMORRHAGIC ANEMIA SNOMED Code(s): 473570809 Plan: 1. Acute blood loss anemia. Transfused 2 U PRBC, check AM hgb 2. Melena. Pt attributes to epistaxis. Pt has never had a scope before. GI consulted 3. Phimosis. Urology consult this admission 4. Alcoholism. Will continue to monitor, consider ativan and CIWA protocol if necessary 5. Hypomagnesemia. Replete 6. LLL infiltrate on XR. Consistent with resolving pneumonia. No fever and WBC wnl. No need for further abx at this time 7. UTI. Treated with rocephin in the ED
--- NOTE | 2019-03-10 20:50 | P.CONS ---
History of Present Illness - Reason for Consult Consult date: 03/10/19 Anemia acute blood loss Requesting physician: Obed Lopez - Chief Complaint Weakness - History of Present Illness 79-year-old male with a medical history significant for atrial fibrillation on Xarelto, prior SC with pacemaker placement, hyperlipidemia, depression and al cohol abuse who presented to the emergency department for evaluation of weakness. The patient was discharged on 02/21/2019 after hospitalization for treatment of community acquired pneumonia. He reports that at home he was having significant epistaxis. During this time he believes he swallowed quite a bit of blood. Eventually the nosebleed stops however the patient subsequently developed symptoms of lightheadedness and weakness and EMS was called. The patient had 2 large melanotic stools in the emergency department. He denies any prior history of GI bleed. Per the patient he does not look at his bowel movements routinely and is unsure if he had any melena or hematochezia previously been seen in the emergency department. He denies any associated abdominal pain. He denies any nausea, vomiting, hematemesis or coffee-ground emesis. No prior history of EGD or colonoscopy reported. On presentation to the hospital patient had a hemoglobin of 7.8 which was subsequently found to be 7.3 on repeat draw which is down from his baseline in January at which time hemoglobins ran in the 10 range. WBC 5.7, platelet count 185,000, INR 1.4, total bilirubin 0.4, alkaline phosphatase 58, AST 19 and ALT 18 with stool testing positive for blood. The patient also has a known history of alcohol abuse for as long as he can remember. He drinks approximately 5-6 beers daily. No prior history of ascites, paracentesis for diagnosis of hepatic encephalopathy. Review of Systems REVIEW OF SYSTEMS: CONSTITUTIONAL: Denies any fevers, chills, weight change but was feeling extremely fatigued prior to presentation. CARDIOVASCULAR: Denies any chest pain, palpitations high or low blood pressures RESPIRATORY: Denies any shortness of breath, hemoptysis or cough. GENITOURINARY: No dysuria but does note hematuria. MUSCULOSKELETAL: No focal muscular weakness but reports being weak and fatigued overall. SKIN: Denies any new rashes or lesions, jaundice or pallor. PSYCHIATRIC: Denies any anxiety but has a known history of depression. NEUROLOGY: Denies headache, denies any new focal deficits. EARS/NOSE/THROAT: No recent hearing change, congestion, nasal discharge or sore throat, but does report a significant episode of epistaxis prior to pres entation. EYES: No pain in eyes, discharge or change in vision. GASTROINTESTINAL: As per HPI. Past Medical History Past Medical History: Atrial Fibrillation, Heart Failure, GERD/Reflux, Hyperlipidemia, Myocardial Infarction (SC), Pneumonia Additional Past Medical History / Comment(s): Pt recently admitted to [facility] on 02/13/19 with generalized weakness/falls/UTI/ CAP/ ETOH/hyponatremia/hyperkalemia/hypomagnesemia/increased lactic acid/severe protein calorie malnutrition and urinary retention. Other hx: Paroxysmal Afib, ETOH abuse, iron anemia, urinary retention-has appt with urologist 03/20/19, gout R foot Last Myocardial Infarction Date:: 2010 History of Any Multi-Drug Resistant Organisms: C-DIFF Year Discovered:: 2014 MDRO Source:: stool Past Surgical History: AICD, Cardiac Ablation Additional Past Surgical History / Comment(s): Bilateral cataract removals/lens implants. Past Anesthesia/Blood Transfusion Reactions: No Reported Reaction Type of Cardiac Device: AICD Device Placement Date:: 2010 Smoking Status: Former smoker - Past Family History Mother Family Medical History: CVA/TIA, Diabetes Mellitus Additional Family Medical History / Comment(s): Mother had "severe" diabetes and a CVA. Father Family Medical History: CVA/TIA, GI Bleed Additional Family Medical History / Comment(s): Father had a CVA Medications and Allergies Home Medications Medication Instructions Recorded Confirmed Type Allopurinol [Zyloprim] 100 mg PO DAILY 02/13/19 03/10/19 History Atorvastatin [Lipitor] 20 mg PO DAILY 02/13/19 03/10/19 History Cholecalciferol (Vitamin D3) 2,000 unit PO HS 02/13/19 03/10/19 History [Vitamin D3] Cyanocobalamin (Vitamin B-12) 1,000 mcg PO DAILY 02/13/19 03/10/19 History [Vitamin B-12] Furosemide [Lasix] 20 mg PO DAILY 02/13/19 03/10/19 History Metoprolol Tartrate [Lopressor] 50 mg PO BID 02/13/19 03/10/19 History Potassium Chloride [Klor-Con 20] 20 meq PO BID 02/13/19 03/10/19 History Rivaroxaban [Xarelto] 20 mg PO DAILY 02/13/19 03/10/19 History Tamsulosin [Flomax] 0.4 mg PO DAILY 02/13/19 03/10/19 History Escitalopram [Lexapro] 5 mg PO DAILY 02/17/19 03/10/19 Rx Magnesium Oxide 500mg 500 mg PO HS 03/10/19 03/10/19 History Allergies Allergy/AdvReac Type Severity Reaction Status Date / Time bee venom protein (honey bee) Allergy Anaphylaxis Verified 03/10/19 08:43 Physical Exam Vitals: Vital Signs Temp Pulse Pulse Resp BP BP Pulse Ox 03/10/19 16:52 100.3 F H 111 H 16 132/72 100 03/10/19 16:00 100.3 F H 111 H 16 132/72 100 03/10/19 15:19 99.9 F H 16 103/63 100 03/10/19 14:49 99.1 F 112 H 16 114/61 100 03/10/19 14:39 98.7 F 116 H 16 108/64 03/10/19 12:00 97.8 F 121 H 18 97/58 03/10/19 11:52 111 H 18 111/68 95 03/10/19 10:39 118 H 18 110/82 100 03/10/19 10:00 113 H 13 95/62 98 03/10/19 09:30 120 H 18 106/76 98 03/10/19 08:31 120 H 03/10/19 08:30 133 H 27 H 94/58 94 L 03/10/19 08:06 98.2 F 120 H 20 94/58 Intake and Output 03/10/19 03/10/19 03/10/19 06:59 14:59 22:59 Intake Total 222 310 Balance 222 310 Intake: Oral 222 Blood Product 0 310 Rc Irr As1 Unit 0 310 [id number] Other: Voiding Method Urinal Urinal Weight 75.75 kg On physical examination, patient appears comfortable in no apparent distress. HEAD: Normocephalic, atraumatic. EYES: No scleral icterus. No conjunctival injection. MOUTH: No lesions, tongue midline. NECK: Trachea midline, no gross abnormalities. CHEST: Clear to auscultation with no wheezing or rhonchi appreciated. HEART: S1-S2 appreciated, irregularly irregular. ABDOMEN: Soft, obese. Bowel sounds are positive. No organomegaly. No guarding or rigidity. EXTREMITIES: No pedal edema. SKIN: No rashes, no jaundice. NEUROLOGIC: Alert and oriented x3, with no asterixis appreciated. No focal deficits. Results CBC & Chem 7: 03/10/19 18:30 03/10/19 08:18 Labs: Abnormal Lab Results - Last 24 Hours (Table) 03/10/19 03/10/19 03/10/19 Range/Units 08: 08:18 08:18 RBC 2.61 L (4.30-5.90) m/uL Hgb 7.8 L D (13.0-17.5) gm/dL Hct 26.4 L (39.0-53.0) % MCV 100.9 H (80.0-100.0) fL MCHC 29.5 L (31.0-37.0) g/dL RDW (11.5-15.5) % PT (9.0-12.0) sec INR (<1.2) Chloride 109 H (98-107) mmol/L Carbon Dioxide 21 L (22-30) mmol/L BUN 32 H (9-20) mg/dL Glucose 135 H (74-99) mg/dL Plasma Lactic Acid Lemuel (0.7-2.0) mmol/L ALT 18 L (21-72) U/L Creatine Kinase 23 L (55-170) U/L Total Protein 5.6 L (6.3-8.2) g/dL Albumin 2.5 L (3.5-5.0) g/dL Urine Protein (Negative) Urine Ketones (Negative) Urine Blood (Negative) Ur Leukocyte Esterase (Negative) Urine RBC (0-5) /hpf Urine WBC (0-5) /hpf Urine Mucus (None) /hpf Crossmatch See Detail 03/10/19 03/10/19 03/10/19 Range/Units 08:18 08:18 11:43 RBC (4.30-5.90) m/uL Hgb (13.0-17.5) gm/dL Hct (39.0-53.0) % MCV (80.0-100.0) fL MCHC (31.0-37.0) g/dL RDW (11.5-15.5) % PT 14.1 H (9.0-12.0) sec INR 1.4 H (<1.2) Chloride (98-107) mmol/L Carbon Dioxide (22-30) mmol/L BUN (9-20) mg/dL Glucose (74-99) mg/dL Plasma Lactic Acid Lemuel 4.5 H* (0.7-2.0) mmol/L ALT (21-72) U/L Creatine Kinase (55-170) U/L Total Protein (6.3-8.2) g/dL Albumin (3.5-5.0) g/dL Urine Protein 1+ H (Negative) Urine Ketones Trace H (Negative) Urine Blood Large H (Negative) Ur Leukocyte Esterase Large H (Negative) Urine RBC >182 H (0-5) /hpf Urine WBC >182 H (0-5) /hpf Urine Mucus Moderate H (None) /hpf Crossmatch 03/10/19 Range/Units 12:49 RBC 2.31 L (4.30-5.90) m/uL Hgb 7.3 L (13.0-17.5) gm/dL Hct 22.9 L (39.0-53.0) % MCV (80.0-100.0) fL MCHC (31.0-37.0) g/dL RDW 16.3 H (11.5-15.5) % PT (9.0-12.0) sec INR (<1.2) Chloride (98-107) mmol/L Carbon Dioxide (22-30) mmol/L BUN (9-20) mg/dL Glucose (74-99) mg/dL Plasma Lactic Acid Lemuel (0.7-2.0) mmol/L ALT (21-72) U/L Creatine Kinase (55-170) U/L Total Protein (6.3-8.2) g/dL Albumin (3.5-5.0) g/dL Urine Protein (Negative) Urine Ketones (Negative) Urine Blood (Negative) Ur Leukocyte Esterase (Negative) Urine RBC (0-5) /hpf Urine WBC (0-5) /hpf Urine Mucus (None) /hpf Crossmatch Microbiology - Last 24 Hours (Table) 03/10/19 11:43 Urine Culture - Preliminary Urine,Voided Chest x-ray: report reviewed (Chest x-ray significant for left lower lobe infilt rate consistent with resolving pneumonia) Assessment and Plan (1) Acute blood loss anemia Narrative/Plan: 79 yo with medical history significant for alcohol abuse, atrial fibrillation on Xarelto, hyperlipidemia, prior SC with pacemaker placement and depression who presents to the hospital with reports of weakness. Patient reports epistaxis lasting greater than 30 minutes prior to development of symptoms. During this time he believes he swallowed a lot of blood. He denies any prior history of GI bleed, varices, ascites or hepatic encephalopathy to suggest decompensated cirrhosis however given chronicity of alcohol abuse there is likely some degree of chronic liver disease. Patient had 2 witnessed episodes of melena in the emergency department. He is unclear if he has had signs or symptoms of GI bleeding with bowel movements in the past as he does not look at his stool. Unclear if anemia is secondary to recent episode of epistaxis, GI bleed, or other etiology. Current Visit: Yes Status: Acute Code(s): D62 - ACUTE POSTHEMORRHAGIC ANEMIA SNOMED Code(s): 404054670 (2) Atrial fibrillation Current Visit: Yes Status: Acute Code(s): I48.91 - UNSPECIFIED ATRIAL FIBRILLATION SNOMED Code(s): 39847012 (3) Melena Current Visit: Yes Status: Acute Code(s): K92.1 - MELENA SNOMED Code(s): 4259768 (4) Alcoholism Current Visit: No Status: Acute Code(s): F10.20 - ALCOHOL DEPENDENCE, UNCO MPLICATED SNOMED Code(s): 2471665 Plan: Supportive care Continue to monitor hemoglobin and transfuse as needed Continue to hold Xarelto Okay for liquids Protonix increased to 40 mg IV twice a day No plans for endoscopic evaluation at this time, however will continue to monitor patient's labs and clinical course with consideration for EGD if further fall in hemoglobin or melena is reported Alcohol abstinence [facility] protocol Thank you for allowing us to participate in the care of the patient we will continue to follow
[2019-03-10] MEDS: PANTOPRAZOLE 40 MG/10 ML VIAL IV SCH (21:20)
[2019-03-10] MEDS: 1: MVI, ADULT NO.4 WITH VIT K 10 ML, THIAMINE 100 MG, FOLIC ACID 1 MG in SODIUM CHLORIDE IV SCH ×4 (21:29)
[2019-03-11] MEDS: 1: MVI, ADULT NO.4 WITH VIT K 10 ML, THIAMINE 100 MG, FOLIC ACID 1 MG in SODIUM CHLORIDE IV SCH ×8 (06:42→18:02)
[2019-03-11] MEDS: PANTOPRAZOLE 40 MG/10 ML VIAL IV SCH ×2 (08:31→21:00)
[2019-03-11] MEDS ORDERED: PANTOPRAZOLE 40 MG/10 ML VIAL IV SCH (09:00)
[2019-03-11 09:45] LABS: Anisocytosis Slight; Hypochromasia Slight; MCH 31.9 pg (25.0-35.0); MCHC 33.2 g/dL (31.0-37.0); Macrocytosis Slight; Mean Platelet Volume 7.2; Platelet Count 172 k/uL (150-450); RBC 3.02 m/uL (4.30-5.90); RDW 17.6 % (11.5-15.5); WBC 4.8 k/uL (3.8-10.6)
[2019-03-11 09:58] LABS: HGB 9.6 gm/dL (13.0-17.5)
[2019-03-11 10:11] LABS: African American GFR (CKD) >90 (>60 ml/min/1.73 sqM); Anion Gap 5 mmol/L; Blood Urea Nitrogen 25 mg/dL (9-20); Calcium 8.2 mg/dL (8.4-10.2); Carbon Dioxide 21 mmol/L (22-30); Chloride 115 mmol/L (98-107); Glucose 93 mg/dL (74-99); Potassium 3.8 mmol/L (3.5-5.1); Sodium 141 mmol/L (137-145)
--- NOTE | 2019-03-11 11:15 | P.PN ---
Subjective Progress Note Date: 03/11/19 Principal diagnosis: Weakness anemia Denies hematemesis hematochezia melena. No abdominal complaints. Hemoglobin 9.6. Objective - Vital Signs Vital signs: Vital Signs Temp 97.3 F L 03/11/19 08:00 Pulse 77 03/11/19 08:00 Resp 20 03/11/19 08:00 BP 117/62 03/11/19 08:00 Pulse Ox 100 03/11/19 08:00 Intake & Output 03/10/19 03/11/19 03/11/19 18:59 06:59 18:59 Intake Total 532 310 Output Total 200 200 Balance 532 110 -200 Weight 75.75 kg 75.7 kg Intake: Oral 222 Blood Product 310 310 Rc As-1 Unit 310 [id number] Rc As-3 Unit 0 [id number] Rc Irr As1 Unit 310 [id number] Output: Urine 200 200 Other: Voiding Method Urinal Urinal Urinal # Voids 1 # Bowel Movements 1 - Exam General appearance: The patient is alert, oriented, in no acute distress. HET: Head is normocephalic and atraumatic. Pupils are equal and reactive. Oropharynx is clear without lesions. Neck: Supple without lymphadenopathy. Trachea midline. Heart: S1 S2. Regular rate and rhythm. Lungs: No crackles or wheezes are heard. Abdomen: Soft, nontender, nondistended with bowel sounds. No peritoneal signs. No palpable organomegaly or masses. Extremities: Normal skin color and turgor. No cyanosis, rash, ulceration, clubbing, or edema. Radial and pedal pulses are 2/4 bilaterally. Neurological: No focal deficits. Strength and sensation are grossly intact. - Labs CBC & Chem 7: 03/11/19 06:34 03/11/19 06:34 Labs: Abnormal Lab Results - Last 24 Hours (Table) 03/10/19 03/10/19 03/10/19 Range/Units 08:15 11:43 12:49 RBC 2.31 L (4.30-5.90) m/uL Hgb 7.3 L (13.0-17.5) gm/dL Hct 22.9 L (39.0-53.0) % RDW 16.3 H (11.5-15.5) % Chloride (98-107) mmol/L Carbon Dioxide (22-30) mmol/L BUN (9-20) mg/dL Calcium (8.4-10.2) mg/dL Urine Protein 1+ H (Negative) Urine Ketones Trace H (Negative) Urine Blood Large H (Negative) Ur Leukocyte Esterase Large H (Negative) Urine RBC >182 H (0-5) /hpf Urine WBC >182 H (0-5) /hpf Urine Mucus Moderate H (None) /hpf Crossmatch See Detail 03/10/19 03/11/19 03/11/19 Range/Units 18:30 06:34 06:34 RBC 2.41 L 3.02 L (4.30-5.90) m/uL Hgb 7.6 L 9.6 L D (13.0-17.5) gm/dL Hct 23.5 L 29.0 L (39.0-53.0) % RDW 17.4 H 17.6 H (11.5-15.5) % Chloride 115 H (98-107) mmol/L Carbon Dioxide 21 L (22-30) mmol/L BUN 25 H (9-20) mg/dL Calcium 8.2 L (8.4-10.2) mg/dL Urine Protein (Negative) Urine Ketones (Negative) Urine Blood (Negative) Ur Leukocyte Esterase (Negative) Urine RBC (0-5) /hpf Urine WBC (0-5) /hpf Urine Mucus (None) /hpf Crossmatch Microbiology - Last 24 Hours (Table) 03/10/19 11:43 Urine Culture - Preliminary Urine,Voided Assessment and Plan (1) Acute blood loss anemia Current Visit: Yes Status: Acute Code(s): D62 - ACUTE POSTHEMORRHAGIC ANEMIA SNOMED Code(s): 169039419 (2) H/O ETOH abuse Current Visit: Yes Status: Acute Code(s): F10.11 - ALCOHOL ABUSE, IN REMISSION SNOMED Code(s): 942262675 (3) Atrial fibrillation Current Visit: Yes Status: Acute Code(s): I48.91 - UNSPECIFIED ATRIAL FIBRILLATION SNOMED Code(s): 63221023 (4) Melena Current Visit: Yes Status: Acute Code(s): K92.1 - MELENA SNOMED Code(s): 1100043 Plan: 1. Full liquids. CBC monitoring. Inpatient endoscopic exam contingent if abdiaziz ent manifests a drop in hemoglobin and or melena. Alcohol abstinence.Protonix 40 mg twice daily. Assessment and plan a care discussed with Dr. Leos
--- NOTE | 2019-03-11 12:00 | P.PN ---
Subjective Progress Note Date: 03/11/19 Pt seen and evaluated at bedside. He feels stronger today after his transfusions. No further epistaxis or blood in stools. Hgb up to 9.6. today. Urology saw pt and planning on outpatient circ. Objective - Vital Signs Vital signs: Vital Signs Temp 97.6 F 03/11/19 11:53 Pulse 69 03/11/19 11:53 Resp 20 03/11/19 11:53 BP 123/70 03/11/19 11:53 Pulse Ox 98 03/11/19 11:53 Intake & Output 03/10/19 03/11/19 03/11/19 18:59 06:59 18:59 Intake Total 532 310 Output Total 200 200 Balance 532 110 -200 Weight 75.75 kg 75.7 kg Intake: Oral 222 Blood Product 310 310 Rc As-1 Unit 310 [id number] Rc As-3 Unit 0 [id number] Rc Irr As1 Unit 310 [id number] Output: Urine 200 200 Other: Voiding Method Urinal Urinal Urinal # Voids 1 # Bowel Movements 1 - Exam Constitutional: lying in bed, alert, NAD HEENT: no epistaxis CV: RRR Lungs: clear b/l Abd: soft, nontender - Labs CBC & Chem 7: 03/11/19 06:34 03/11/19 06:34 Labs: Abnormal Lab Results - Last 24 Hours (Table) 03/10/19 03/10/19 03/10/19 Range/Units 08:15 11:43 12:49 RBC 2.31 L (4.30-5.90) m/uL Hgb 7.3 L (13.0-17.5) gm/dL Hct 22.9 L (39.0-53.0) % RDW 16.3 H (11.5-15.5) % Chloride (98-107) mmol/L Carbon Dioxide (22-30) mmol/L BUN (9-20) mg/dL Calcium (8.4-10.2) mg/dL Urine Protein 1+ H (Negative) Urine Ketones Trace H (Negative) Urine Blood Large H (Negative) Ur Leukocyte Esterase Large H (Negative) Urine RBC >182 H (0-5) /hpf Urine WBC >182 H (0-5) /hpf Urine Mucus Moderate H (None) /hpf Crossmatch See Detail 03/10/19 03/11/19 03/11/19 Range/Units 18:30 06:34 06:34 RBC 2.41 L 3.02 L (4.30-5.90) m/uL Hgb 7.6 L 9.6 L D (13.0-17.5) gm/dL Hct 23.5 L 29.0 L (39.0-53.0) % RDW 17.4 H 17.6 H (11.5-15.5) % Chloride 115 H (98-107) mmol/L Carbon Dioxide 21 L (22-30) mmol/L BUN 25 H (9-20) mg/dL Calcium 8.2 L (8.4-10.2) mg/dL Urine Protein (Negative) Urine Ketones (Negative) Urine Blood (Negative) Ur Leukocyte Esterase (Negative) Urine RBC (0-5) /hpf Urine WBC (0-5) /hpf Urine Mucus (None) /hpf Crossmatch Microbiology - Last 24 Hours (Table) 03/10/19 11:43 Urine Culture - Preliminary Urine,Voided Assessment and Plan (1) GI bleed Current Visit: Yes Status: Acute Code(s): K92.2 - GASTROINTESTINAL HEMORRHAGE, UNSPECIFIED SNOMED Code(s): 94041460 (2) Atrial fibrillation Current Visit: Yes Status: Acute Code(s): I48.91 - UNSPECIFIED ATRIAL FIBRILLATION SNOMED Code(s): 47906937 (3) Alcoholism Current Visit: No Status: Acute Code(s): F10.20 - ALCOHOL DEPENDENCE, UNCOMPLICATED SNOMED Code(s): 9114394 (4) Phimosis Current Visit: No Status: Acute Code(s): N47.1 - PHIMOSIS SNOMED Code(s): 821421993 (5) Hypomagnesemia Current Visit: Yes Status: Acute Code(s): E83.42 - HYPOMAGNESEMIA SNOMED Code(s): 285816579 (6) Melena Current Visit: Yes Status: Acute Code(s): K92.1 - MELENA SNOMED Code(s): 6137372 (7) Acute blood loss anemia Current Visit: Yes Status: Acute Code(s): D62 - ACUTE POSTHEMORRHAGIC ANEMIA SNOMED Code(s): 211478889 Plan: 1. Acute blood loss anemia. Transfused 2 U PRBC. Hgb stable today. No further bleeding. Recommended nasal saline misting and afrin prn for nosebleeds in the future. If hgb stable consider d/c tomorrow 2. Melena. Pt attributes to epistaxis. GI consulted and no plans for endoscopy this admission 3. Phimosis. Urology will perform circ as outpatient 4. Alcoholism. Will continue to monitor, consider ativan and CIWA protocol if necessary 5. Hypomagnesemia. Resolved 6. LLL infiltrate on XR. Consistent with resolving pneumonia. No fever and WBC wnl. No need for further abx 7. UTI. Treated with rocephin in the ED
--- NOTE | 2019-03-11 12:16 | P.GSCN ---
History of Present Illness Consult date: 03/11/19 Reason for Consult: Phimosis Requesting physician: Obed Lopez History of present illness: The patient is an 79-year-old white male who I saw last month during a hospitalization. At that time, he was found to have phimosis and was emptying his bladder incompletely. He was advised to undergo placement of a Salomon cat heter, which he refused. He now presents back with nosebleed and melanotic stools. He dates that his foreskin balloons when he voids, suggesting that the phimosis may be contributing to his incomplete bladder emptying. Review of Systems - Constitutional Reports fatigue, Reports weakness, Denies chills, Denies fever - Cardiovascular Denies chest pain - Respiratory Denies dyspnea - Gastrointestinal Reports melena, Denies nausea, Denies vomiting Past Medical History Past Medical History: Atrial Fibrillation, Heart Failure, GERD/Reflux, Hyperlipidemia, Myocardial Infarction (OK), Pneumonia Additional Past Medical History / Comment(s): Pt recently admitted to [facility] on 02/13/19 with generalized weakness/falls/UTI/ CAP/ ETOH/hyponatremia/hyperkalemia/hypomagnesemia/increased lactic acid/severe protein calorie malnutrition and urinary retention. Other hx: Paroxysmal Afib, ETOH abuse, iron anemia, urinary retention-has appt with urologist 03/20/19, gout R foot Last Myocardial Infarction Date:: 2010 History of Any Multi-Drug Resistant Organisms: C-DIFF Year Discovered:: 2014 MDRO Source:: stool Past Surgical History: AICD, Cardiac Ablation Additional Past Surgical History / Comment(s): Bilateral cataract removals/lens implants. Past Anesthesia/Blood Transfusion Reactions: No Reported Reaction Type of Cardiac Device: AICD Device Placement Date:: 2010 Smoking Status: Former smoker - Past Family History Mother Family Medical History: CVA/TIA, Diabetes Mellitus Additional Family Medical History / Comment(s): Mother had "severe" diabetes and a CVA. Father Family Medical History: CVA/TIA, GI Bleed Additional Family Medical History / Comment(s): Father had a CVA Medications and Allergies Home Medications Medication Instructions Recorded Confirmed Type Allopurinol [Zyloprim] 100 mg PO DAILY 02/13/19 03/10/19 History Atorvastatin [Lipitor] 20 mg PO DAILY 02/13/19 03/10/19 History Cholecalciferol (Vitamin D3) 2,000 unit PO HS 02/13/19 03/10/19 History [Vitamin D3] Cyanocobalamin (Vitamin B-12) 1,000 mcg PO DAILY 02/13/19 03/10/19 History [Vitamin B-12] Furosemide [Lasix] 20 mg PO DAILY 02/13/19 03/10/19 History Metoprolol Tartrate [Lopressor] 50 mg PO BID 02/13/19 03/10/19 History Potassium Chloride [Klor-Con 20] 20 meq PO BID 02/13/19 03/10/19 History Rivaroxaban [Xarelto] 20 mg PO DAILY 02/13/19 03/10/19 History Tamsulosin [Flomax] 0.4 mg PO DAILY 02/13/19 03/10/19 History Escitalopram [Lexapro] 5 mg PO DAILY 02/17/19 03/10/19 Rx Magnesium Oxide 500mg 500 mg PO HS 03/10/19 03/10/19 History Allergies Allergy/AdvReac Type Severity Reaction Status Date / Time bee venom protein (honey bee) Allergy Anaphylaxis Verified 03/10/19 08:43 Surgical - Exam Vital Signs Temp Pulse Resp BP 98.2 F 120 H 20 94/58 03/10/19 08:06 03/10/19 08:06 03/10/19 08:06 03/10/19 08:06 - General well developed, well nourished, no distress - Respiratory normal respiratory effort - Abdomen Abdomen: soft, non tender, no guarding, no rigid, no rebound - Genitourinary other (The penis is uncircumcised. There is tight phimosis. The scrotum and testes are normal.) - Rectum Rectum: normal sphincter tone, no masses, other (The prostate is moderately enlarged, and smooth in consistency.) - Psychiatric oriented to time, oriented to person, oriented to place, speech is normal, memory intact Results - Labs 03/11/19 06:34 03/11/19 06:34 Abnormal Lab Results - Last 24 Hours (Table) 03/10/19 03/10/19 03/10/19 Range/Units 08:15 08:18 08:18 RBC 2.61 L (4.30-5.90) m/uL Hgb 7.8 L D (13.0-17.5) gm/dL Hct 26.4 L (39.0-53.0) % MCV 100.9 H (80.0-100.0) fL MCHC 29.5 L (31.0-37.0) g/dL RDW (11.5-15.5) % PT (9.0-12.0) sec INR (<1.2) Chloride 109 H (98-107) mmol/L Carbon Dioxide 21 L (22-30) mmol/L BUN 32 H (9-20) mg/dL Glucose 135 H (74-99) mg/dL Plasma Lactic Acid Lemuel (0.7-2.0) mmol/L ALT 18 L (21-72) U/L Creatine Kinase 23 L (55-170) U/L Total Protein 5.6 L (6.3-8.2) g/dL Albumin 2.5 L (3.5-5.0) g/dL Urine Protein (Negative) Urine Ketones (Negative) Urine Blood (Negative) Ur Leukocyte Esterase (Negative) Urine RBC (0-5) /hpf Urine WBC (0-5) /hpf Urine Mucus (None) /hpf Crossmatch See Detail 03/10/19 03/10/19 03/10/19 Range/Units 08:18 08:18 11:43 RBC (4.30-5.90) m/uL Hgb (13.0-17.5) gm/dL Hct (39.0-53.0) % MCV (80.0-100.0) fL MCHC (31.0-37.0) g/dL RDW (11.5-15.5) % PT 14.1 H (9.0-12.0) sec INR 1.4 H (<1.2) Chloride (98-107) mmol/L Carbon Dioxide (22-30) mmol/L BUN (9-20) mg/dL Glucose (74-99) mg/dL Plasma Lactic Acid Lemuel 4.5 H* (0.7-2.0) mmol/L ALT (21-72) U/L Creatine Kinase (55-170) U/L Total Protein (6.3-8.2) g/dL Albumin (3.5-5.0) g/dL Urine Protein 1+ H (Negative) Urine Ketones Trace H (Negative) Urine Blood Large H (Negative) Ur Leukocyte Esterase Large H (Negative) Urine RBC >182 H (0-5) /hpf Urine WBC >182 H (0-5) /hpf Urine Mucus Moderate H (None) /hpf Crossmatch 03/10/19 03/10/19 Range/Units 12:49 18:30 RBC 2.31 L 2.41 L (4.30-5.90) m/uL Hgb 7.3 L 7.6 L (13.0-17.5) gm/dL Hct 22.9 L 23.5 L (39.0-53.0) % MCV (80.0-100.0) fL MCHC (31.0-37.0) g/dL RDW 16.3 H 17.4 H (11.5-15.5) % PT (9.0-12.0) sec INR (<1.2) Chloride (98-107) mmol/L Carbon Dioxide (22-30) mmol/L BUN (9-20) mg/dL Glucose (74-99) mg/dL Plasma Lactic Acid Lemuel (0.7-2.0) mmol/L ALT (21-72) U/L Creatine Kinase (55-170) U/L Total Protein (6.3-8.2) g/dL Albumin (3.5-5.0) g/dL Urine Protein (Negative) Urine Ketones (Negative) Urine Blood (Negative) Ur Leukocyte Esterase (Negative) Urine RBC (0-5) /hpf Urine WBC (0-5) /hpf Urine Mucus (None) /hpf Crossmatch Microbiology - Last 24 Hours (Table) 03/10/19 11:43 Urine Culture - Preliminary Urine,Voided Diabetes panel 03/10/19 Range/Units 08:18 Sodium 139 (137-145) mmol/L Potassium 4.6 (3.5-5.1) mmol/L Chloride 109 H (98-107) mmol/L Carbon Dioxide 21 L (22-30) mmol/L BUN 32 H (9-20) mg/dL Creatinine 0.79 (0.66-1.25) mg/dL Glucose 135 H (74-99) mg/dL Calcium 8.6 (8.4-10.2) mg/dL AST 19 (17-59) U/L ALT 18 L (21-72) U/L Alkaline Phosphatase 58 (38-126) U/L Total Protein 5.6 L (6.3-8.2) g/dL Albumin 2.5 L (3.5-5.0) g/dL Thyroid panel 03/10/19 Range/Units 08:18 TSH 2.940 (0.465-4.680) mIU/L Calcium panel 03/10/19 Range/Units 08:18 Calcium 8.6 (8.4-10.2) mg/dL Phosphorus 3.7 (2.5-4.5) mg/dL Albumin 2.5 L (3.5-5.0) g/dL Pituitary panel 03/10/19 Range/Units 08:18 Sodium 139 (137-145) mmol/L Potassium 4.6 (3.5-5.1) mmol/L Chloride 109 H (98-107) mmol/L Carbon Dioxide 21 L (22-30) mmol/L BUN 32 H (9-20) mg/dL Creatinine 0.79 (0.66-1.25) mg/dL Glucose 135 H (74-99) mg/dL Calcium 8.6 (8.4-10.2) mg/dL TSH 2.940 (0.465-4.680) mIU/L Adrenal panel 03/10/19 Range/Units 08:18 Sodium 139 (137-145) mmol/L Potassium 4.6 (3.5-5.1) mmol/L Chloride 109 H (98-107) mmol/L Carbon Dioxide 21 L (22-30) mmol/L BUN 32 H (9-20) mg/dL Creatinine 0.79 (0.66-1.25) mg/dL Glucose 135 H (74-99) mg/dL Calcium 8.6 (8.4-10.2) mg/dL Total Bilirubin 0.4 (0.2-1.3) mg/dL AST 19 (17-59) U/L ALT 18 L (21-72) U/L Alkaline Phosphatase 58 (38-126) U/L Total Protein 5.6 L (6.3-8.2) g/dL Albumin 2.5 L (3.5-5.0) g/dL Assessment and Plan (1) Phimosis Current Visit: Yes Status: Acute Code(s): N47.1 - PHIMOSIS SNOMED Code(s): 122953674 Plan: I believe that Mr. Hussein would benefit from a circumcision, and I have suggested that this be performed electively, after he has undergone evaluation of his GI bleeding. Time with Patient: Greater than 30
[2019-03-11] MEDS: KETOTIFEN 0.025% OPHTH DROPS 5 ML BTL LEFT EYE SCH ×2 (16:29→21:01)
[2019-03-12] MEDS: 1: MVI, ADULT NO.4 WITH VIT K 10 ML, THIAMINE 100 MG, FOLIC ACID 1 MG in SODIUM CHLORIDE IV SCH ×8 (06:16→21:22)
[2019-03-12] MEDS: KETOTIFEN 0.025% OPHTH DROPS 5 ML BTL LEFT EYE SCH ×2 (06:16→21:27)
[2019-03-12 06:27] LABS: Anisocytosis Slight; HCT 27.7 % (39.0-53.0); Hypochromasia Slight; MCH 31.3 pg (25.0-35.0); MCHC 32.4 g/dL (31.0-37.0); MCV 96.7 fL (80.0-100.0); Macrocytosis Slight; Mean Platelet Volume 7.4; Platelet Count 149 k/uL (150-450); RBC 2.87 m/uL (4.30-5.90); WBC 5.2 k/uL (3.8-10.6)
[2019-03-12 06:37] LABS: African American GFR (CKD) >90 (>60 ml/min/1.73 sqM); Anion Gap 6 mmol/L; Blood Urea Nitrogen 15 mg/dL (9-20); Calcium 8.2 mg/dL (8.4-10.2); Carbon Dioxide 21 mmol/L (22-30); Chloride 113 mmol/L (98-107); Glucose 93 mg/dL (74-99); Potassium 3.8 mmol/L (3.5-5.1); Sodium 140 mmol/L (137-145)
[2019-03-12] MEDS: PANTOPRAZOLE 40 MG/10 ML VIAL IV SCH ×2 (08:42→21:27)
[2019-03-12] MEDS ORDERED: LORazepam 2 MG/ML INJ IV PRN ×3 (14:26)
[2019-03-12] MEDS ORDERED: THIAMINE 100 MG/ML 2 ML VIAL IM STA (14:26)
[2019-03-12] MEDS ORDERED: Potassium Replacement Protocol 1 EACH MISC MISCELLANE PRN (14:31)
--- NOTE | 2019-03-12 14:37 | P.PN ---
Subjective Progress Note Date: 03/12/19 No further epistaxis, hemoptysis, hematochezia, or melena. Denies abdominal pain. Hemoglobin stable at 9.0. Patient disclosed he drinks 5-6 beers daily.Complains of bilateral eye pain, burning, itching, right greater than left. Also complains of generalized weakness requesting possible subacute rehab. at discharge. K3.3. Denies chest pain, palpitations or increased shortness of breath. Objective - Vital Signs Vital signs: Vital Signs Temp 98 F 03/12/19 08:00 Pulse 57 L 03/12/19 12:00 Resp 16 03/12/19 12:00 BP 99/53 03/12/19 12:00 Pulse Ox 100 03/12/19 12:00 Intake & Output 03/11/19 03/12/19 03/12/19 18:59 06:59 18:59 Intake Total 2033.2 1100 Output Total 550 100 Balance 1483.2 -100 1100 Weight 83.9 kg Intake: Intake, IV Titration 1811.2 Amount Mvi, Adult No.4 with Vit 1011.2 K 10 ml Thiamine 100 mg Folic Acid 1 mg In Sodium Chloride 0.9% 1,000 ml @ 100 mls/hr IV .BY DURATION ROBERT Rx#: [id number] Sodium Chloride 0.9% 1, 800 000 ml @ 100 mls/hr IV . BY DURATION ROBERT Rx#: [id number] Oral 222 1100 Output: Urine 550 100 Other: Voiding Method Urinal Urinal Urinal # Voids 2 - Exam PHYSICAL EXAM: VITAL SIGNS: As above GENERAL: Sitting up in bed, no acute distress HEENT: Conjunctivae normal. eyes reddened with right greater than left, without drainage, possible abrasion. Oral mucosa moist NECK: No JVD. No thyroid enlargement. No LNs CARDIOVASCULAR: S1, S2 regular.. No murmur RESPIRATION: Breath sounds diminished in the bases. No rhonchi or crackles. No bronchial breathing. ABDOMEN: Soft, nontender . No guarding. no masses palpable. Bowel sounds heard. LEGS: No edema. no swelling PSYCHIATRY: Alert and oriented X3, mood and affect normal. NERVOUS SYSTEM: Cranial N 2-12 grossly normal. Moves all 4 limbs. Diffuse weakness ,No focal deficits. Strength and sensation grossly intact.. Skin: no lesions, no rash - Labs CBC & Chem 7: 03/12/19 06:03 03/12/19 06:03 Labs: Abnormal Lab Results - Last 24 Hours (Table) 03/12/19 03/12/19 Range/Units 06:03 06:03 RBC 2.87 L (4.30-5.90) m/uL Hgb 9.0 L (13.0-17.5) gm/dL Hct 27.7 L (39.0-53.0) % RDW 19.0 H (11.5-15.5) % Plt Count 149 L (150-450) k/uL Chloride 113 H (98-107) mmol/L Carbon Dioxide 21 L (22-30) mmol/L Calcium 8.2 L (8.4-10.2) mg/dL Microbiology - Last 24 Hours (Table) 03/10/19 11:43 Urine Culture - Final Urine,Voided Staphylococcus aureus 03/10/19 17:21 Blood Culture - Preliminary Blood No Growth after 24 hours 03/10/19 17:30 Blood Culture - Preliminary Blood No Growth after 24 hours Assessment and Plan Assessment: (1) acute GI bleed, acute blood loss anemia , in a patient with history of alcohol abuse Current Visit: Yes Status: Acute Code(s): K92.2 - GASTROINTESTINAL HEMORRHAGE, UNSPECIFIED SNOMED Code(s): 37509894 (2) Atrial fibrillation, chronic Current Visit: Yes Status: Acute Code(s): I48.91 - UNSPECIFIED ATRIAL FIBRILLATION SNOMED Code(s): 72952137 (3) Alcoholism Current Visit: No Status: Acute Code(s): F10.20 - ALCOHOL DEPENDENCE, UNCOMPLICATED SNOMED Code(s): 6029712 (4) Phimosis Current Visit: No Status: Acute Code(s): N47.1 - PHIMOSIS SNOMED Code(s): 639408431 (5) Hypomagnesemia Current Visit: Yes Status: Acute Code(s): E83.42 - HYPOMAGNESEMIA SNOMED Code(s): 110779931 (6) Melena Current Visit: Yes Status: Acute Code(s): K92.1 - MELENA SNOMED Code(s): 0282565 (7) Acute blood loss anemia Current Visit: Yes Status: Acute Code(s): D62 - ACUTE POSTHEMORRHAGIC ANEMIA SNOMED Code(s): 418841995 (8) possible corneal abrasion in a patient with history of corneal transplants Plan: Continue current medication regime ,monitoring and symptomatic treatment. Close monitoring of CBC with potential endoscopy procedure pending clinical presentation. Attendant Arcade consulted regarding complaints of bilateral eye pain, burning, itching, right greater than left, with possible corneal abrasion, in a patient with history of corneal transplants. Erythromycin ophthalmic ointment ordered. PT OT consulted, recommended subacute rehab. Social work assisting with discharge to subacute rehab. Alcohol abstinence discussed with patient. CIWA protocol added to med regime. Potassium 3.3 to be supplemented as per replacement protocol ordered. Discharge planning in progress for tomorrow. The impression and plan of care has been dictated as directed. : I performed a history and examination of this patient, discussed the same with the dictator. I agree with the dictator's note ,documented as a scribe. Any additional findings or plans will be noted.
[2019-03-12] MEDS: LORATADINE 10 MG TAB PO SCH (21:27)
[2019-03-13] MEDS: THIAMINE 100 MG TAB PO SCH ×2 (06:39→16:43)
[2019-03-13] MEDS: 1: MVI, ADULT NO.4 WITH VIT K 10 ML, THIAMINE 100 MG, FOLIC ACID 1 MG in SODIUM CHLORIDE IV SCH ×8 (06:40→16:46)
[2019-03-13 07:22] LABS: Anisocytosis Slight; HCT 27.2 % (39.0-53.0); HGB 8.7 gm/dL (13.0-17.5); Hypochromasia Slight; MCH 30.8 pg (25.0-35.0); MCHC 31.9 g/dL (31.0-37.0); MCV 96.7 fL (80.0-100.0); Macrocytosis Slight; Mean Platelet Volume 7.5; Platelet Count 133 k/uL (150-450); RBC 2.82 m/uL (4.30-5.90); RDW 18.8 % (11.5-15.5); WBC 5.2 k/uL (3.8-10.6)
[2019-03-13 07:34] LABS: African American GFR (CKD) >90 (>60 ml/min/1.73 sqM); Anion Gap 5 mmol/L; Blood Urea Nitrogen 8 mg/dL (9-20); Calcium 8.2 mg/dL (8.4-10.2); Carbon Dioxide 23 mmol/L (22-30); Chloride 112 mmol/L (98-107); Glucose 99 mg/dL (74-99); Potassium 3.5 mmol/L (3.5-5.1); Sodium 140 mmol/L (137-145)
[2019-03-13] MEDS: ERYTHROMYCIN 5 MG/GM OPHTH OINT 3.5 GM TUBE BOTH EYES SCH ×7 (08:13→21:32)
[2019-03-13] MEDS: LORATADINE 10 MG TAB PO SCH (08:20)
[2019-03-13] MEDS: KETOTIFEN 0.025% OPHTH DROPS 5 ML BTL LEFT EYE SCH ×2 (08:20→21:24)
[2019-03-13] MEDS: PANTOPRAZOLE 40 MG/10 ML VIAL IV SCH ×2 (08:20→21:24)
--- NOTE | 2019-03-13 11:06 | US ---
EXAMINATION TYPE: US venous doppler duplex UE LT DATE OF EXAM: 03/13/2019 COMPARISON: CT chest February 14, 2019 CLINICAL HISTORY: swelling of LUE. 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 Patient stated had IV x 2 in left arm. SIDE PERFORMED: left Left Arm: Nearly occluding DVT left Subclavian Vein as minimal venous color flow is seen just distal to proximal subclavian vein; occluding DVT in Left Axillary Vein; upper single brachial vein non occl uding DVT is noted, but patent Brachial paired veins are patent and compress. SVT is noted in upper B asilic Vein. Tech findings reported to RN, Louisa, on patient's floor. Patency of the left internal jugular vein redemonstrated. Partial occlusive thrombus in portions of t he left subclavian and axillary vein likely correspond to areas of narrowing and irregularity on rece nt CT. IMPRESSION: Some age-indeterminate nonocclusive deep and superficial thrombus in the left upper extre mity.
--- NOTE | 2019-03-13 13:39 | P.PN ---
Subjective Progress Note Date: 03/13/19 No further epistaxis, hemoptysis, hematochezia, or melena. Denies abdominal pain. Hemoglobin stable at 9.0. Patient disclosed he drinks 5-6 beers daily.Complains of bilateral eye pain, burning, itching, right greater than left. Also complains of generalized weakness requesting possible subacute rehab. at discharge. K3.3. Denies chest pain, palpitations or increased shortness of breath. 03/13/2019 no further bleeding, hemoglobin 8.7. Left forearm edematous, warm without pain; patient states that he had prior DVT of the left arm multiple years ago. Doppler ultrasound ordered. Denies chest pain, palpitations or shortness of breath. Objective - Vital Signs Vital signs: Vital Signs Temp 97.9 F 03/13/19 08:00 Pulse 88 03/13/19 12:00 Resp 16 03/13/19 12:00 BP 146/80 03/13/19 12:00 Pulse Ox 92 L 03/13/19 08:00 Intake & Output 03/12/19 03/13/19 03/13/19 18:59 06:59 18:59 Intake Total 1100 240 360 Output Total 300 250 Balance 800 -10 360 Weight 84.5 kg Intake: Oral 1100 240 360 Output: Urine 300 250 Other: Voiding Method Urinal Urinal Urinal # Voids 5 # Bowel Movements 1 - Exam PHYSICAL EXAM: VITAL SIGNS: As above GENERAL: Sitting up in bed, no acute distress HEENT: Conjunctivae normal. eyes reddened with right greater than left, without drainage, possible abrasion. Oral mucosa moist NECK: No JVD. No thyroid enlargement. No LNs CARDIOVASCULAR: S1, S2 regular.. No murmur RESPIRATION: Breath sounds diminished in the bases. No rhonchi or crackles. No bronchial breathing. ABDOMEN: Soft, nontender . No guarding. no masses palpable. Bowel sounds heard. LEGS: No edema. no swelling PSYCHIATRY: Alert and oriented X3, mood and affect normal. NERVOUS SYSTEM: Cranial N 2-12 grossly normal. Moves all 4 limbs. Diffuse weakness ,No focal deficits. Strength and sensation grossly intact.. Skin: no lesions, no rash. Left forearm warm, edematous, nontender, positive sensation, positive radial pulse. - Labs CBC & Chem 7: 03/13/19 06:22 03/13/19 06:22 Labs: Abnormal Lab Results - Last 24 Hours (Table) 03/10/19 03/13/19 03/13/19 Range/Units 08:15 06:22 06:22 RBC 2.82 L (4.30-5.90) m/uL Hgb 8.7 L (13.0-17.5) gm/dL Hct 27.2 L (39.0-53.0) % RDW 18.8 H (11.5-15.5) % Plt Count 133 L (150-450) k/uL Chloride 112 H (98-107) mmol/L BUN 8 L (9-20) mg/dL Creatinine 0.63 L (0.66-1.25) mg/dL Calcium 8.2 L (8.4-10.2) mg/dL Crossmatch See Detail Microbiology - Last 24 Hours (Table) 03/10/19 17:21 Blood Culture - Preliminary Blood No Growth after 48 hours 03/10/19 17:30 Blood Culture - Preliminary Blood No Growth after 48 hours 03/10/19 11:43 Urine Culture - Final Urine,Voided Staphylococcus aureus Assessment and Plan Assessment: (1) acute GI bleed, acute blood loss anemia , in a patient with history of alcohol abuse Current Visit: Yes Status: Acute Code(s): K92.2 - GASTROINTESTINAL HEMORRHAGE, UNSPECIFIED SNOMED Code(s): 11556717 (2) Atrial fibrillation, chronic Current Visit: Yes Status: Acute Code(s): I48.91 - UNSPECIFIED ATRIAL FIBRILLATION SNOMED Code(s): 30007961 (3) Alcoholism Current Visit: No Status: Acute Code(s): F10.20 - ALCOHOL DEPENDENCE, UNCOMPLICATED SNOMED Code(s): 0923371 (4) Phimosis Current Visit: No Status: Acute Code(s): N47.1 - PHIMOSIS SNOMED Code(s): 041658366 (5) Hypomagnesemia Current Visit: Yes Status: Acute Code(s): E83.42 - HYPOMAGNESEMIA SNOMED Code(s): 261992250 (6) Melena Current Visit: Yes Status: Acute Code(s): K92.1 - MELENA SNOMED Code(s): 8169804 (7) Acute blood loss anemia Current Visit: Yes Status: Acute Code(s): D62 - ACUTE POSTHEMORRHAGIC ANEMIA SNOMED Code(s): 025107418 (8) possible corneal abrasion in a patient with history of corneal transplants (9) Left forearm edema in a patient with history of left arm DVT Plan: Continue current medication regime ,monitoring and symptomatic treatment. Doppler left arm ordered. Warm compresses, keep hydrated. Xarelto resumed. Close monitoring of CBC. Follow up with Group Activities Aide OP regarding possible corneal abrasion, in a patient with history of corneal transplants. Continue on Erythromycin ophthalmic ointment.PT OT. Discharge planning in progress for [facility] subacute rehab. pending pre authorization. Alcohol abstinence discussed with patient. The impression and plan of care has been dictated as directed. : I performed a history and examination of this patient, discussed the same with the dictator. I agree with the dictator's note ,documented as a scribe. Any additional findings or plans will be noted.
[2019-03-13] MEDS: RIVAROXABAN 20 MG TAB PO SCH (16:43)
[2019-03-14] MEDS: 1: MVI, ADULT NO.4 WITH VIT K 10 ML, THIAMINE 100 MG, FOLIC ACID 1 MG in SODIUM CHLORIDE IV SCH ×4 (00:57)
[2019-03-14] MEDS: ERYTHROMYCIN 5 MG/GM OPHTH OINT 3.5 GM TUBE BOTH EYES SCH ×3 (03:16→09:08)
[2019-03-14] MEDS: PANTOPRAZOLE 40 MG/10 ML VIAL IV SCH (08:55)
[2019-03-14] MEDS: KETOTIFEN 0.025% OPHTH DROPS 5 ML BTL LEFT EYE SCH (09:05)
[2019-03-14] MEDS: LORATADINE 10 MG TAB PO SCH (09:05)
[2019-03-14] MEDS: RIVAROXABAN 20 MG TAB PO SCH (09:05)
[2019-03-14] MEDS: THIAMINE 100 MG TAB PO SCH (09:05)
[2019-03-14 10:29] LABS: Anisocytosis Slight; HCT 33.2 % (39.0-53.0); HGB 10.6 gm/dL (13.0-17.5); Hypochromasia Slight; MCH 30.9 pg (25.0-35.0); MCHC 31.8 g/dL (31.0-37.0); MCV 97.1 fL (80.0-100.0); Macrocytosis Slight; Mean Platelet Volume 8.7; Platelet Count 132 k/uL (150-450); RBC 3.42 m/uL (4.30-5.90); RDW 19.5 % (11.5-15.5); WBC 5.1 k/uL (3.8-10.6)
[2019-03-14 15:15] VITALS: BP 143/76; PULSE 90; RESP 18; TEMP 97.4
--- NOTE | 2019-03-15 17:59 | P.DS ---
<Yisel Bradford - Last Filed: 03/14/19 14:54> Patient Condition at Discharge: Serious Plan - Discharge Summary Discharge Rx Participant: No New Discharge Prescriptions: New Loratadine [Claritin] 10 mg PO DAILY #30 tab Folic Acid 1 mg PO DAILY #30 tablet Multivitamins, Thera [Multivitamin (formulary)] 1 tab PO DAILY #30 tablet Thiamine [Vitamin B-1] 100 mg PO DAILY@1200 #30 tab Ketotifen 0.025% Ophth Soln [Zaditor] 1 drops LEFT EYE BID ml Tobramycin 0.3% Ophth Soln [Tobrex 0.3% Ophth Soln] 1 drop BOTH EYES Q4H #1 bottle Continue Cyanocobalamin (Vitamin B-12) [Vitamin B-12] 1,000 mcg PO DAILY Tamsulosin [Flomax] 0.4 mg PO DAILY Rivaroxaban [Xarelto] 20 mg PO DAILY Metoprolol Tartrate [Lopressor] 50 mg PO BID Potassium Chloride [Klor-Con 20] 20 meq PO BID Furosemide [Lasix] 20 mg PO DAILY Atorvastatin [Lipitor] 20 mg PO DAILY Allopurinol [Zyloprim] 100 mg PO DAILY Cholecalciferol (Vitamin D3) [Vitamin D3] 2,000 unit PO HS Escitalopram [Lexapro] 5 mg PO DAILY Magnesium Oxide 500mg 500 mg PO HS Discharge Medication List Allopurinol [Zyloprim] 100 mg PO DAILY 02/13/19 [History] Atorvastatin [Lipitor] 20 mg PO DAILY 02/13/19 [History] Cholecalciferol (Vitamin D3) [Vitamin D3] 2,000 unit PO HS 02/13/19 [History] Cyanocobalamin (Vitamin B-12) [Vitamin B-12] 1,000 mcg PO DAILY 02/13/19 [History] Furosemide [Lasix] 20 mg PO DAILY 02/13/19 [History] Metoprolol Tartrate [Lopressor] 50 mg PO BID 02/13/19 [History] Potassium Chloride [Klor-Con 20] 20 meq PO BID 02/13/19 [History] Rivaroxaban [Xarelto] 20 mg PO DAILY 02/13/19 [History] Tamsulosin [Flomax] 0.4 mg PO DAILY 02/13/19 [History] Escitalopram [Lexapro] 5 mg PO DAILY 02/17/19 [Rx] Magnesium Oxide 500mg 500 mg PO HS 03/10/19 [History] Folic Acid 1 mg PO DAILY #30 tablet 03/14/19 [Rx] Ketotifen 0.025% Ophth Soln [Zaditor] 1 drops LEFT EYE BID ml 03/14/19 [Rx] Loratadine [Claritin] 10 mg PO DAILY #30 tab 03/14/19 [Rx] Multivitamins, Thera [Multivitamin (formulary)] 1 tab PO DAILY #30 tablet 03/14/19 [Rx] Thiamine [Vitamin B-1] 100 mg PO DAILY@1200 #30 tab 03/14/19 [Rx] Tobramycin 0.3% Ophth Soln [Tobrex 0.3% Ophth Soln] 1 drop BOTH EYES Q4H #1 bottle 03/14/19 [Rx] Follow up Appointment(s)/Referral(s): Elmo Phillips MD [STAFF PHYSICIAN] - 3 Days (Office closed. Please call Sunday.) Lc Millard MD [STAFF PHYSICIAN] - 1 Week (Office closed. Please call Sunday for your appt.) Jazzmine Lopez DO [Primary Care Provider] - 03/20/19 12:45 pm ( with Jocelyn CUNNINGHAM) Paramjit [facility], [NON-STAFF] - As Needed Andrey Houser MD [STAFF PHYSICIAN] - 04/14/19 1:00 pm Ambulatory/Diagnostic Orders: Complete Blood Count w/diff [LAB.AMB] Time Frame: 3 Days, Location: None Selected Patient Instructions/Handouts: Gastrointestinal Bleeding (DC) Activity/Diet/Wound Care/Special Instructions: Homecare CBC, BMP in 3 days Discharge Disposition: HOME WITH HOME HEALTH SERVICES <Obed Lopez - Last Filed: 03/15/19 17:59> Providers Date of admission: 03/10/19 10:37 Expected date of discharge: 03/14/19 Attending physician: Obed Lopez MD Consults: 03/10/19 20:07 Consult Physician Routine Consulting Provider: Lc Millard Consult Reason/Comments: phimosis Do you want consulting provider notified?: Yes 03/12/19 11:12 Consult Physician Stat Consulting Provider: Elmo Phillips Consult Reason/Comments: Possible corneal abrasion with history of corneal transplants Do you want consulting provider notified?: Yes Primary care physician: Jazzmine Lopez - Discharge Diagnosis(es) (1) GI bleed Status: Acute (2) Atrial fibrillation Status: Acute (3) Alcoholism Status: Acute (4) Phimosis Status: Acute (5) Hypomagnesemia Status: Acute (6) Melena Status: Acute (7) Acute blood loss anemia Status: Acute Hospital Course: Steven Hussein is an 79 yo M with PMH significant for alcohol abuse, a fib on xarelto, 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 Pt was recently admitted for CAP and discharged 02/13 and subsequently had a stay at [facility]. He had been back home for about a week. He states he had a significant nosebleed last night which lasted for >30 mins. This eventually resolved on its own. This morning he was on the commode and became lightheaded and profoundly weak so EMS was called. In the ED he passed two large melenotic stools. Pt denies hematochezia or melena at home but states he does not pay attention to stools. Pt also complains that the foreskin of his penis is painful and he is unable to retract it around the head of his penis. He has seen urology once and was going to follow up outpatient for circumcision. He has been compliant with xarelto. Pt has never had a colonoscopy before. He denies chest pain or shortness of breath. In the ED Hgb 7.3, WBC 5, vitals stable. CXR with residual LLL infiltrate consistent with resolving pneumonia. Pt was admitted and xarelto held, his Hgb continued to drop so he was transfused 2 U PRBC. Urology saw the pt and recommended outpatient circumcision. Pt was evaluated by GI and recommended continue supportive care and no need for scope. The following day, pt's Hgb stabilized but he complained of increased LUE swelling compared to his baseline. US did reveal indeterminate age DVT and pt's xarelto was restarted. On day of discharge, pt's hgb remained stable and his arm swelling was stable. He will pursue outpatient circ. He also complained of R eye redness and itchiness and was given a script for tobramycin eye drops on discharge.
== END 2019-03-14 18:28 | disposition home health service (06) | DRG 377 ==
LOC: EC 08:04 → 3SCARD 10:37 → 4SSUR 03-13 16:47
PROVIDERS: ADMIT Family Medicine; ATTEND Family Medicine
PROC: 30233N1 Transfusion of Nonautologous Red Blood Cells into Peripheral Vein, Percutaneous Approach (ICD-10-PCS; principal; 2019-03-10)
DX: K92.1 Melena (principal); J18.9 Pneumonia, unspecified organism; E43 Unspecified severe protein-calorie malnutrition; D62 Acute posthemorrhagic anemia; N39.0 Urinary tract infection, site not specified; D68.9 Coagulation defect, unspecified; I48.0 Paroxysmal atrial fibrillation; E87.5 Hyperkalemia; E86.0 Dehydration; I50.9 Heart failure, unspecified; E83.42 Hypomagnesemia; R04.0 Epistaxis; N47.1 Phimosis; F32.9 Major depressive disorder, single episode, unspecified; K21.9 Gastro-esophageal reflux disease without esophagitis; E78.5 Hyperlipidemia, unspecified; R33.9 Retention of urine, unspecified; S05.02XA Injury of conjunctiva and corneal abrasion without foreign body, left eye, initial encounter; S05.01XA Injury of conjunctiva and corneal abrasion without foreign body, right eye, initial encounter; F10.20 Alcohol dependence, uncomplicated; M10.9 Gout, unspecified; I25.2 Old myocardial infarction; Z79.01 Long term (current) use of anticoagulants; Z79.899 Other long term (current) drug therapy; Z87.891 Personal history of nicotine dependence; Z86.718 Personal history of other venous thrombosis and embolism; Z87.01 Personal history of pneumonia (recurrent); Z86.19 Personal history of other infectious and parasitic diseases; Z95.810 Presence of automatic (implantable) cardiac defibrillator; Z98.890 Other specified postprocedural states; Z87.19 Personal history of other diseases of the digestive system; Z94.7 Corneal transplant status; Z98.42 Cataract extraction status, left eye; Z98.41 Cataract extraction status, right eye; Z96.1 Presence of intraocular lens; Z91.030 Bee allergy status; Z83.3 Family history of diabetes mellitus; Z82.3 Family history of stroke
CPT/HCPCS: 36415; 71046; 80048; 80053; 81001; 82272; 82550; 83605; 83735; 83880; 84100; 84443; 84484; 85025; 85027; 85610; 85730; 86850; 86880; 86900; 86901; 86920; 87040; 87077; 87086; 87186; 94760; 96361; 96365; 99291

== ENCOUNTER 2019-03-30 12:43 | Emergency (ER) | payer MEDICARE ==
--- NOTE | 2019-03-30 13:01 | ED ---
General Adult HPI - General Stated complaint: urinary retention Time Seen by Provider: 03/30/19 12:46 Source: patient, EMS, RN notes reviewed Mode of arrival: EMS Limitations: no limitations - History of Present Illness Initial comments: Patient is a pleasant 79-year-old male presenting to the emergency Department with urinary retention. Patient states he last urinated sometime yesterday. Patient does complain of swelling. Patient states he does have a history of similar symptoms previously and is supposed to have a circumcision done within the next couple of weeks here. Patient is unclear who his urologist this. Patient states discomfort is persistent. Patient denies trauma. No fever or redness. - Related Data Home Medications Medication Instructions Recorded Confirmed Allopurinol [Zyloprim] 100 mg PO DAILY 02/13/19 03/30/19 Atorvastatin [Lipitor] 20 mg PO DAILY 02/13/19 03/30/19 Cholecalciferol (Vitamin D3) 2,000 unit PO HS 02/13/19 03/30/19 [Vitamin D3] Cyanocobalamin (Vitamin B-12) 1,000 mcg PO DAILY 02/13/19 03/30/19 [Vitamin B-12] Furosemide [Lasix] 20 mg PO DAILY 02/13/19 03/30/19 Metoprolol Tartrate [Lopressor] 50 mg PO BID 02/13/19 03/30/19 Potassium Chloride [Klor-Con 20] 20 meq PO BID 02/13/19 03/30/19 Rivaroxaban [Xarelto] 20 mg PO DAILY 02/13/19 03/30/19 Tamsulosin [Flomax] 0.4 mg PO DAILY 02/13/19 03/30/19 Magnesium Oxide 500mg 500 mg PO HS 03/10/19 03/30/19 Previous Rx's Medication Instructions Recorded Escitalopram [Lexapro] 5 mg PO DAILY 02/17/19 Folic Acid 1 mg PO DAILY #30 tablet 03/14/19 Ketotifen 0.025% Ophth Soln 1 drops LEFT EYE BID ml 03/14/19 [Zaditor] Loratadine [Claritin] 10 mg PO DAILY #30 tab 03/14/19 Multivitamins, Thera [Multivitamin 1 tab PO DAILY #30 tablet 03/14/19 (formulary)] Thiamine [Vitamin B-1] 100 mg PO DAILY@1200 #30 tab 03/14/19 Allergies Allergy/AdvReac Type Severity Reaction Status Date / Time bee venom protein (honey bee) Allergy Anaphylaxis Verified 03/30/19 13:43 Review of Systems ROS Statement: Those systems with pertinent positive or pertinent negative responses have been documented in the HPI. ROS Other: All systems not noted in ROS Statement are negative. Constitutional: Denies: fever Eyes: Denies: eye pain ENT: Denies: ear pain Respiratory: Denies: cough Cardiovascular: Denies: chest pain Endocrine: Denies: fatigue Gastrointestinal: Denies: abdominal pain Genitourinary: Reports: urgency, other (Penile swelling and discomfort) Musculoskeletal: Denies: back pain Skin: Denies: rash Neurological: Denies: weakness Past Medical History Past Medical History: Atrial Fibrillation, Heart Failure, GERD/Reflux, Hyperlipidemia, Myocardial Infarction ([place]), Pneumonia Additional Past Medical History / Comment(s): Pt recently admitted to [facility] on 02/13/19 with generalized weakness/falls/UTI/ CAP/ ETOH/hyponatremia/hyperkalemia/hypomagnesemia/increased lactic acid/severe protein calorie malnutrition and urinary retention. Other hx: Paroxysmal Afib, ETOH abuse, iron anemia, urinary retention-has appt with urologist , gout R foot Last Myocardial Infarction Date:: 2010 History of Any Multi-Drug Resistant Organisms: C-DIFF Date of last positivie culture/infection: 2014 MDRO Source:: stool Past Surgical History: AICD, Cardiac Ablation Additional Past Surgical History / Comment(s): Bilateral cataract removals/lens implants. Past Anesthesia/Blood Transfusion Reactions: No Reported Reaction Type of Cardiac Device: AICD Device Placement Date:: 2010 Smoking Status: Former smoker - Past Family History Mother Family Medical History: CVA/TIA, Diabetes Mellitus Additional Family Medical History / Comment(s): Mother had "severe" diabetes and a CVA. Father Family Medical History: CVA/TIA, GI Bleed Additional Family Medical History / Comment(s): Father had a CVA General Exam Limitations: no limitations General appearance: alert Head exam: Present: atraumatic Eye exam: Present: normal appearance Neck exam: Present: normal inspection Respiratory exam: Present: normal lung sounds bilaterally Cardiovascular Exam: Present: regular rate, normal rhythm GI/Abdominal exam: Present: soft, tenderness (Minimal suprapubic tenderness). Absent: distended exam: Present: other (Patient is noncircumcised. There is swelling of the glands. No erythema. Foreskin is mobile however is unable to be moved to expose any of the glands.). Absent: testicular tenderness, urethral discharge, scrotal swelling Extremities exam: Present: normal inspection Neurological exam: Present: alert Psychiatric exam: Present: normal affect, normal mood Skin exam: Present: normal color Course Vital Signs 03/30/19 12:45 Temperature 98.7 F Pulse Rate 93 Respiratory 16 Rate Blood Pressure 123/69 O2 Sat by Pulse 98 Oximetry - Reevaluation(s) Reevaluation #1: 03/30/19 14:04 Case was discussed with Dr. Rucker, who will come evaluate patient. Bladder scan 650. Procedures - Procedures Initial comment: Salomon catheter: Sterile prep. Urojet used. Unable to pass 12 silicone Salomon catheter. Difficulty finding meatus. There was 50+ cc of incontinence during attempt. Medical Decision Making - Medical Decision Making Patient was seen by Dr. Rucker who did do a block and used hemostats to place Salomon catheter. He states patient can be discharged for follow-up. Disposition Clinical Impression: Urinary retention, Phimosis Disposition: HOME SELF-CARE Condition: Stable Instructions (If sedation given, give patient instructions): Phimosis (ED), Urinary Retention in Men (ED) Additional Instructions: Please follow-up with Dr. Rucker as directed, number provided. Return for not passing urine, pain or fever, increased swelling, worsening symptoms or other concerns. Is patient prescribed a controlled substance at d/c from ED?: No Referrals: Jazzmine Lopez DO [Primary Care Provider] - 1-2 days Lc Millard MD [STAFF PHYSICIAN] - 1-2 days Time of Disposition: 17:21
[2019-03-30] MEDS ORDERED: LIDOCAINE URO-JET JELLY 2% 5 ML KIT URETHRAL ONE (13:24)
[2019-03-30] MEDS ORDERED: LIDOCAINE 1% INJ 10MG/ML (20 ML MDV) SQ ONE (14:09)
--- NOTE | 2019-03-30 17:32 | P.GSCN ---
History of Present Illness Consult date: 03/30/19 Reason for Consult: Phimosis, urinary retention Requesting physician: Agustín Gill History of present illness: The patient is an 79-year-old white male who I saw in January during a hospitalization. At that time, he was found to have phimosis and was emptying his bladder incompletely. He was advised to undergo placement of a Salomon catheter, which he refused. He was readmitted in February with nosebleed and melanotic stools. He stated that his foreskin ballooned when he voided, suggesting that the phimosis may be contributing to his incomplete bladder emptying, and he was advised to follow up so that he could be scheduled to undergo a circumcision. He now presents with inability to void and increased penile ballooning. Review of Systems - Constitutional Denies chills, Denies fever - Cardiovascular Denies chest pain - Respiratory Denies cough - Gastrointestinal Denies abdominal pain - Genitourinary Denies hematuria Past Medical History Past Medical History: Atrial Fibrillation, Heart Failure, GERD/Reflux, Hyperl ipidemia, Myocardial Infarction ([place]), Pneumonia Additional Past Medical History / Comment(s): Pt recently admitted to [facility] on 02/13/19 with generalized weakness/falls/UTI/ CAP/ ETOH/hyponatremia/hyperkalemia/hypomagnesemia/increased lactic acid/severe protein calorie malnutrition and urinary retention. Other hx: Paroxysmal Afib, ETOH abuse, iron anemia, urinary retention-has appt with urologist 03/20/19, gout R foot Last Myocardial Infarction Date:: 2010 History of Any Multi-Drug Resistant Organisms: C-DIFF Year Discovered:: 2014 MDRO Source:: stool Past Surgical History: AICD, Cardiac Ablation Additional Past Surgical History / Comment(s): Bilateral cataract removals/lens implants. Past Anesthesia/Blood Transfusion Reactions: No Reported Reaction Type of Cardiac Device: AICD Device Placement Date:: 2010 Smoking Status: Former smoker - Past Family History Mother Family Medical History: CVA/TIA, Diabetes Mellitus Additional Family Medical History / Comment(s): Mother had "severe" diabetes and a CVA. Father Family Medical History: CVA/TIA, GI Bleed Additional Family Medical History / Comment(s): Father had a CVA Medications and Allergies Home Medications Medication Instructions Recorded Confirmed Type Allopurinol [Zyloprim] 100 mg PO DAILY 02/13/19 03/30/19 History Atorvastatin [Lipitor] 20 mg PO DAILY 02/13/19 03/30/19 History Cholecalciferol (Vitamin D3) 2,000 unit PO HS 02/13/19 03/30/19 History [Vitamin D3] Cyanocobalamin (Vitamin B-12) 1,000 mcg PO DAILY 02/13/19 03/30/19 History [Vitamin B-12] Furosemide [Lasix] 20 mg PO DAILY 02/13/19 03/30/19 History Metoprolol Tartrate [Lopressor] 50 mg PO BID 02/13/19 03/30/19 History Potassium Chloride [Klor-Con 20] 20 meq PO BID 02/13/19 03/30/19 History Rivaroxaban [Xarelto] 20 mg PO DAILY 02/13/19 03/30/19 History Tamsulosin [Flomax] 0.4 mg PO DAILY 02/13/19 03/30/19 History Escitalopram [Lexapro] 5 mg PO DAILY 02/17/19 03/30/19 Rx Magnesium Oxide 500mg 500 mg PO HS 03/10/19 03/30/19 History Folic Acid 1 mg PO DAILY #30 tablet 03/14/19 03/30/19 Rx Ketotifen 0.025% Ophth Soln 1 drops LEFT EYE BID ml 03/14/19 03/30/19 Rx [Zaditor] Loratadine [Claritin] 10 mg PO DAILY #30 tab 03/14/19 03/30/19 Rx Multivitamins, Thera [Multivitamin 1 tab PO DAILY #30 tablet 03/14/19 03/30/19 Rx (formulary)] Thiamine [Vitamin B-1] 100 mg PO DAILY@1200 #30 tab 03/14/19 03/30/19 Rx Allergies Allergy/AdvReac Type Severity Reaction Status Date / Time bee venom protein (honey bee) Allergy Anaphylaxis Verified 03/30/19 13:43 Surgical - Exam Vital Signs Temp Pulse Resp BP Pulse Ox 98.7 F 93 16 123/69 98 03/30/19 12:45 03/30/19 12:45 03/30/19 12:45 03/30/19 12:45 03/30/19 12:45 - General well developed, well nourished, no distress - Respiratory normal respiratory effort - Abdomen Abdomen: soft, non tender, no guarding, no rigid, no rebound - Genitourinary testicles non-tender, other (Uncircumcised phallus with tight phimosis.) - Psychiatric oriented to time, oriented to person, oriented to place, speech is normal, memory intact Assessment and Plan (1) Urinary retention Current Visit: Yes Status: Acute Code(s): R33.9 - RETENTION OF URINE, UNSPECIFIED SNOMED Code(s): 896916802 (2) Phimosis Current Visit: Yes Status: Acute Code(s): N47.1 - PHIMOSIS SNOMED Code(s): 773871746 Plan: A Salomon catheter could not be advanced through the phimotic ring. Lidocaine was injected subcutaneously, circumferentially at the penile base, after prepping and draping the penis. A hemostat was then advanced through the phimotic ring, and the phimosis was dilated. A 12 Vietnamese Salomon catheter was then placed. The patient tolerated this well. He will be discharged home with the Salomon, and arrangements will be made for him to undergo an elective circumcision. Time with Patient: Greater than 30
[2019-03-30 17:47] VITALS: BP 127/78; PULSE 87; RESP 18; TEMP 98.1
== END 2019-03-30 18:02 | disposition home or self-care (01) ==
LOC: EC 12:43
DX: N47.1 Phimosis (principal); I48.0 Paroxysmal atrial fibrillation; I50.9 Heart failure, unspecified; E78.5 Hyperlipidemia, unspecified; I25.2 Old myocardial infarction; M10.9 Gout, unspecified; Z87.891 Personal history of nicotine dependence; Z91.030 Bee allergy status; Z79.01 Long term (current) use of anticoagulants; Z79.899 Other long term (current) drug therapy; Z95.810 Presence of automatic (implantable) cardiac defibrillator
CPT/HCPCS: 99284; 51702; J2001

== ENCOUNTER 2019-04-04 06:48 | Day surgery (SDC) | payer MEDICARE ==
[2019-04-01 10:16] VITALS: BMI 27.3
--- NOTE | 2019-04-03 21:32 | P.GSHP ---
History of Present Illness H&P Date: 04/03/19 Chief Complaint: Phimosis The patient is an 79-year-old white male who I saw in January during a hospitalization. At that time, he was found to have phimosis and was emptying his bladder incompletely. He was advised to undergo placement of a Garcia catheter, which he refused. He was readmitted in February with nosebleed and melanotic stools. He stated that his foreskin ballooned when he voided, suggesting that the phimosis may be contributing to his incomplete bladder emptying, and he was advised to follow up so that he could be scheduled to undergo a circumcision. He presented to the ER on March 30 with inability to void and increased penile ballooning. The preputial opening was spread, and a Garcia catheter was placed. - Constitutional Constitutional: Denies chills, Denies fever - Cardiovascular Cardiovascular: Denies chest pain - Respiratory Respiratory: Denies dyspnea - Gastrointestinal Gastrointestinal: Denies nausea, Denies vomiting - Genitourinary (Female) Genitourinary: Denies hematuria Past Medical History Past Medical History: Atrial Fibrillation, Heart Failure, GERD/Reflux, GI Bleed, Hyperlipidemia, Myocardial Infarction ([place]), Pneumonia, Prostate Disorder Additional Past Medical History / Comment(s): Afib, AICD.,Hx of ETOH abuse, Hx C-diff (2014)., iron anemia, BPH., gout, Hx of falls- uses walker with wheels., Pneumonia (January 2019), Hospital Adm 03/10/19 for nasal bleeding- received transfusions., Hx of blood clot in left arm., scab left arm., Daughter- Brie lives with pt., Phimosis & Urine retention-Indwelling garcia catheter Placed by Dr Millard 03/30/19., Last Myocardial Infarction Date:: 2010 History of Any Multi-Drug Resistant Organisms: None Reported Date of last positivie culture/infection: 2014 MDRO Source:: stool Past Surgical History: AICD, Cardiac Ablation, Pacemaker Additional Past Surgical History / Comment(s): Bilateral cataract removals/lens implants., [employer] DUAL CHAMBER AICD/PACEMAKER REPLACED 03/27/2017. Past Anesthesia/Blood Transfusion Reactions: No Reported Reaction Additional Past Anesthesia/Blood Transfusion Reaction / Comment(s): RECENT BLOOD TRANSFUSIONS AT [facility].-DENIES REACTION Type of Cardiac Device: AICD Device Placement Date:: 03/27/2017 Past Psychological History: Depression Additional Psychological History / Comment(s): .. Smoking Status: Former smoker Past Alcohol Use History: Daily, Heavy Additional Past Alcohol Use History / Comment(s): Pt started smoking in 3 and quit in 2010. Hx of 6 beers/day., Currently no alcohol since hospitalization in February 2019. Past Drug Use History: None Reported - Past Family History Mother Family Medical History: CVA/TIA, Diabetes Mellitus Additional Family Medical History / Comment(s): Mother had "severe" diabetes and a CVA. Father Family Medical History: CVA/TIA, GI Bleed Additional Family Medical History / Comment(s): Father had a CVA Medications and Allergies Home Medications Medication Instructions Recorded Confirmed Type Allopurinol [Zyloprim] 100 mg PO DAILY 02/13/19 04/01/19 History Atorvastatin [Lipitor] 20 mg PO DAILY 02/13/19 04/01/19 History Cholecalciferol (Vitamin D3) 2,000 unit PO HS 02/13/19 04/01/19 History [Vitamin D3] Cyanocobalamin (Vitamin B-12) 1,000 mcg PO DAILY 02/13/19 04/01/19 History [Vitamin B-12] Furosemide [Lasix] 20 mg PO DAILY 02/13/19 04/01/19 History Metoprolol Tartrate [Lopressor] 50 mg PO BID 02/13/19 04/01/19 History Potassium Chloride [Klor-Con 20] 20 meq PO BID 02/13/19 04/01/19 History Rivaroxaban [Xarelto] 20 mg PO DAILY 02/13/19 04/01/19 History Tamsulosin [Flomax] 0.4 mg PO DAILY 02/13/19 04/01/19 History Escitalopram [Lexapro] 5 mg PO DAILY 02/17/19 04/01/19 Rx Folic Acid 1 mg PO DAILY #30 tablet 03/14/19 04/01/19 Rx Loratadine [Claritin] 10 mg PO DAILY #30 tab 03/14/19 04/01/19 Rx Multivitamins, Thera [Multivitamin 1 tab PO DAILY #30 tablet 03/14/19 04/01/19 Rx (formulary)] Ketotifen 0.025% Ophth Soln 1 drops LEFT EYE BID PRN 04/01/19 04/01/19 History [Zaditor] Magnesium 500 mg PO HS 04/01/19 04/01/19 History Thiamine [Vitamin B-1] 100 mg PO DAILY 04/01/19 04/01/19 History Allergies Allergy/AdvReac Type Severity Reaction Status Date / Time bee venom protein (honey bee) Allergy Anaphylaxis Verified 04/01/19 09:32 Surgical - Exam - General well developed, well nourished, no distress - Respiratory normal respiratory effort - Abdomen Abdomen: soft, non tender, no guarding, no rigid, no rebound - Genitourinary testicles non-tender, other (Uncircumcised phallus with tight phimosis.) Assessment and Plan (1) Phimosis Status: Acute Code(s): N47.1 - PHIMOSIS SNOMED Code(s): 976495025 Plan: The patient comes for circumcision. The procedure has been reviewed in detail with him. Potential risks include anesthesia, bleeding, and infection. It is anticipated that phimosis was the cause of his urinary retention, and that he will be able to successfully void following the circumcision.
[~2019-04-04 06:48] MED LIST: HYDROmorphone 0.5 MG/0.5 ML SYRINGE IVP PRN; LACTATED RINGERS 1,000 ML IV SCH; MIDAZOLAM 2 MG/2 ML VIAL IV PRN; ONDANSETRON 4 MG/2 ML VIAL IVP ONE
[2019-04-04 07:34] VITALS: TEMP 97.8
[2019-04-04] MEDS ORDERED: PROPOFOL 10 MG/ML 20 ML VIAL IV ONE (09:17)
[2019-04-04] MEDS ORDERED: MIDAZOLAM 2 MG/2 ML VIAL ONE (09:17)
[2019-04-04] MEDS ORDERED: fentaNYL (PF) 50 MCG/ML 2 ML AMP ONE (09:17)
[2019-04-04] MEDS ORDERED: KETAMINE 10 MG/ML 20 ML VIAL ONE (09:17)
[2019-04-04] MEDS ORDERED: LIDOCAINE 2% INJ 20 MG/ML SQ ONE (09:44)
--- NOTE | 2019-04-04 10:28 | P.OP ---
Date of Procedure: 04/04/19 Preoperative Diagnosis: Phimosis Postoperative Diagnosis: Same Procedure(s) Performed: Circumcision Anesthesia: MAC Surgeon: Lc Millard Estimated Blood Loss (ml): 10 IV fluids (ml): 450 Pathology: none sent Condition: stable Disposition: PACU Indications for Procedure: The patient is an 79-year-old white male who I saw in January during a hospitalization. At that time, he was found to have phimosis and was emptying his bladder incompletely. He was advised to undergo placement of a Salomon catheter, which he refused. He was readmitted in February with nosebleed and melanotic stools. He stated that his foreskin ballooned when he voided, suggesting that the phimosis may be contributing to his incomplete bladder emptying, and he was advised to follow up so that he could be scheduled to undergo a circumcision. He presented to the ER on March 30 with inability to void and increased penile ballooning. The preputial opening was spread, and a Salomon catheter was placed. He now comes for circumcision. Operative Findings: Tight phimosis. Description of Procedure: The patient was taken to the operating room and placed in the supine position. The Salomon catheter was removed. The external genitalia was prepped and draped sterilely. 2% lidocaine was injected circumferentially at the penile base for a penile block. Because of the phimosis, the penile foreskin could not be retracted. A hemostat was used to clamp the dorsal aspect of the phimotic ring for several minutes, and scissors were then used to incise this. This was done until the foreskin could be retracted. The glans penis was cleaned with Betadine solution at this time. The scalpel was used to make a circumferential skin incision 1 cm proximal to the glans maher. A second, more proximal circumferential skin incision was then made. The redundant foreskin was excised. Subcutaneous bleeders were controlled with electrocautery. The skin edges were reapproximated using 3-0 chromic suture in a running fashion. An Adaptic dressing was placed over the incision, and the penis was then snugly wrapped using a 2 inch Clint with care taken not to constrict the penis in any way. The patient tolerated the procedure well and was taken to the recovery room in stable condition. He will be discharged home postoperatively.
[2019-04-04 10:54] VITALS: RESP 18
[2019-04-04] MEDS ORDERED: Acetaminophen-Codeine 300-30mg TAB PO ONE (11:08)
[2019-04-04 11:36] VITALS: BP 147/78; PULSE 82
== END 2019-04-04 12:00 | disposition home or self-care (01) ==
LOC: OR 06:48
PROVIDERS: ATTEND Urology
DX: N47.1 Phimosis (principal); I48.91 Unspecified atrial fibrillation; I50.9 Heart failure, unspecified; K21.9 Gastro-esophageal reflux disease without esophagitis; E78.5 Hyperlipidemia, unspecified; I25.2 Old myocardial infarction; I25.10 Atherosclerotic heart disease of native coronary artery without angina pectoris; N42.9 Disorder of prostate, unspecified; Z87.19 Personal history of other diseases of the digestive system; Z95.810 Presence of automatic (implantable) cardiac defibrillator; Z86.19 Personal history of other infectious and parasitic diseases; N40.0 Benign prostatic hyperplasia without lower urinary tract symptoms; M10.9 Gout, unspecified; Z87.01 Personal history of pneumonia (recurrent); Z91.81 History of falling; Z97.2 Presence of dental prosthetic device (complete) (partial); R33.9 Retention of urine, unspecified; Z87.891 Personal history of nicotine dependence; F32.9 Major depressive disorder, single episode, unspecified; Z98.42 Cataract extraction status, left eye; Z98.41 Cataract extraction status, right eye; Z96.1 Presence of intraocular lens; Z82.3 Family history of stroke; Z83.3 Family history of diabetes mellitus; Z79.01 Long term (current) use of anticoagulants; Z79.899 Other long term (current) drug therapy; Z91.030 Bee allergy status
CPT/HCPCS: 84132; 54161; J2001; J2250; J2405; J3010; J2704

== ENCOUNTER 2020-02-21 21:55 | Inpatient (IN) | payer MEDICARE ==
[2020-02-21] MEDS ORDERED: SODIUM CHLORIDE 0.9% 500 ML 500 ML IV STA (22:00)
[2020-02-21] MEDS ORDERED: DILTIAZEM DRIP BOLUS FROM BAG 1 MG SOLN IV ONE (22:04)
--- NOTE | 2020-02-21 22:24 | ED ---
General Adult HPI - General Chief complaint: Chest Pain Stated complaint: Chest Pain Time Seen by Provider: 02/21/20 21:59 Source: patient, EMS, RN notes reviewed, old records reviewed Mode of arrival: EMS Limitations: no limitations - History of Present Illness Initial comments: 80-year-old male presented for evaluation of syncope, collapse. Patient has history of atrial fibrillation status post pacemaker defibrillator. He does have history of alcohol abuse and has been drinking today. He was found by family members unresponsive after a collapse. EMS was called. During transport the patient went into ventricular tachycardia and was defibrillated by his AICD. Patient self has no complaints. He admits to alcohol consumption tonight. He has been noncompliant with his medications for the past one week. He is on metoprolol and Eliquis. Denies chest pain. Denies dyspnea. Denies abdominal pain nausea vomiting. - Related Data Home Medications Medication Instructions Recorded Confirmed Allopurinol [Zyloprim] 100 mg PO DAILY 02/13/19 04/04/19 Atorvastatin [Lipitor] 20 mg PO DAILY 02/13/19 04/04/19 Cholecalciferol (Vitamin D3) 2,000 unit PO HS 02/13/19 04/04/19 [Vitamin D3] Cyanocobalamin (Vitamin B-12) 1,000 mcg PO DAILY 02/13/19 04/04/19 [Vitamin B-12] Furosemide [Lasix] 20 mg PO DAILY 02/13/19 04/04/19 Metoprolol Tartrate [Lopressor] 50 mg PO BID 02/13/19 04/04/19 Potassium Chloride [Klor-Con 20] 20 meq PO BID 02/13/19 04/04/19 Rivaroxaban [Xarelto] 20 mg PO DAILY 02/13/19 04/04/19 Tamsulosin [Flomax] 0.4 mg PO DAILY 02/13/19 04/04/19 Ketotifen 0.025% Ophth Soln 1 drops LEFT EYE BID PRN 04/01/19 04/04/19 [Zaditor] Magnesium 500 mg PO HS 04/01/19 04/04/19 Thiamine [Vitamin B-1] 100 mg PO DAILY 04/01/19 04/04/19 Previous Rx's Medication Instructions Recorded Escitalopram [Lexapro] 5 mg PO DAILY 02/17/19 Folic Acid 1 mg PO DAILY #30 tablet 03/14/19 Loratadine [Claritin] 10 mg PO DAILY #30 tab 03/14/19 Multivitamins, Thera [Multivitamin 1 tab PO DAILY #30 tablet 03/14/19 (formulary)] Acetaminophen-Codeine 300-30mg 1 - 2 tab PO Q4-6H PRN #10 tablet 04/04/19 [Tylenol w/codeine #3] Cephalexin [Keflex] 500 mg PO Q8HR #15 cap 04/04/19 Allergies Allergy/AdvReac Type Severity Reaction Status Date / Time bee venom protein (honey bee) Allergy Anaphylaxis Verified 04/01/19 09:32 Review of Systems ROS Statement: Those systems with pertinent positive or pertinent negative responses have been documented in the HPI. ROS Other: All systems not noted in ROS Statement are negative. Past Medical History Past Medical History: Atrial Fibrillation, Heart Failure, GERD/Reflux, GI Bleed, Hyperlipidemia, Myocardial Infarction ([place]), Pneumonia, Prostate Disorder Additional Past Medical History / Comment(s): Afib, AICD.,Hx of ETOH abuse, Hx C-diff (2014)., iron anemia, BPH., gout, Hx of falls- uses walker with wheels., Pneumonia (January 2019), Hospital Adm 03/10/19 for nasal bleeding- received transfusions., Hx of blood clot in left arm., scab left arm., Daughter- Brie lives with pt., Phimosis & Urine retention-Indwelling garcia catheter Placed by Dr Millard 03/30/19., Last Myocardial Infarction Date:: 2010 History of Any Multi-Drug Resistant Organisms: None Reported Date of last positivie culture/infection: 2014 MDRO Source:: stool Past Surgical History: AICD, Cardiac Ablation, Pacemaker Additional Past Surgical History / Comment(s): Bilateral cataract removals/lens implants., [employer] DUAL CHAMBER AICD/PACEMAKER REPLACED 03/27/2017. Past Anesthesia/Blood Transfusion Reactions: No Reported Reaction Additional Past Anesthesia/Blood Transfusion Reaction / Comment(s): RECENT BLOOD TRANSFUSIONS AT [facility].-DENIES REACTION Type of Cardiac Device: AICD Device Placement Date:: 03/27/2017 Past Psychological History: Depression Smoking Status: Former smoker Past Alcohol Use History: Daily, Heavy Past Drug Use History: None Reported - Past Family History Mother Family Medical History: CVA/TIA, Diabetes Mellitus Additional Family Medical History / Comment(s): Mother had "severe" diabetes and a CVA. Father Family Medical History: CVA/TIA, GI Bleed Additional Family Medical History / Comment(s): Father had a CVA General Exam Limitations: no limitations General appearance: alert, appears intoxicated Head exam: Present: atraumatic, normocephalic Eye exam: Present: normal appearance, PERRL ENT exam: Present: mucous membranes dry Neck exam: Present: normal inspection. Absent: tenderness, meningismus Respiratory exam: Present: normal lung sounds bilaterally. Absent: respiratory distress, wheezes Cardiovascular Exam: Present: tachycardia, irregular rhythm GI/Abdominal exam: Present: soft. Absent: distended, tenderness, guarding Extremities exam: Present: normal inspection, normal capillary refill. Absent: pedal edema Neurological exam: Present: alert. Absent: motor sensory deficit Skin exam: Present: warm, dry, intact. Absent: cyanosis, diaphoretic, erythema Course Vital Signs 02/21/20 21:56 Temperature 98.1 F Pulse Rate 150 H Respiratory 17 Rate Blood Pressure 113/79 O2 Sat by Pulse 96 Oximetry EKG Findings - EKG Comments: EKG Findings:: EKG: Atrial fibrillation with RVR, no ST segment elevation rate of 150, QRS duration 100, QTC 508. No ST segment elevation. Medical Decision Making - Medical Decision Making 80-year-old male history of atrial fibrillation, daily alcohol consumption presenting for evaluation of collapse, likely defibrillation. EMS states they did see a run of ventricular tachycardia, they were not able to capture this on a rhythm strip. According to EMS he had been defibrillated twice. His pacemak er defibrillator has been interrogated and awaiting results. Chest x-ray negative for focal pneumonia or pulmonary edema, no acute findings. Patient has a normal white blood cell count, stable hemoglobin. He has a potassium of 4.3, very low magnesium at 1.2 this is replaced with 2 g of IV magnesium. His troponin is negative. His alcohol level is 105. He is placed on a CIWA scale and Ativan, for concern of alcohol withdrawal. He is placed on Cardizem for rate control of atrial fibrillation with RVR. Case discussed with Dr. Suazo the admitting physician and cardiology, Dr. Reynolds recommends initiating amiodarone. This medication has been ordered in the emergency department. - Lab Data Result diagrams: 02/21/20 22:09 02/21/20 22:09 Lab Results 02/21/20 02/21/20 02/21/20 Range/Units 22:09 22:09 22:09 WBC 9.1 (3.8-10.6) k/uL RBC 3.81 L (4.30-5.90) m/uL Hgb 13.4 (13.0-17.5) gm/dL Hct 42.2 (39.0-53.0) % MCV 110.8 H (80.0-100.0) fL MCH 35.2 H (25.0-35.0) pg MCHC 31.8 (31.0-37.0) g/dL RDW 16.4 H (11.5-15.5) % Plt Count 235 (150-450) k/uL Hypochromasia Slight Anisocytosis Slight Macrocytosis Marked A Sodium 137 (137-145) mmol/L Potassium 4.3 (3.5-5.1) mmol/L Chloride 96 L (98-107) mmol/L Carbon Dioxide 17 L (22-30) mmol/L Anion Gap 24 mmol/L BUN 11 (9-20) mg/dL Creatinine 1.25 (0.66-1.25) mg/dL Est GFR (CKD-EPI)AfAm 63 (>60 ml/min/1.73 sqM) Est GFR (CKD-EPI)NonAf 54 (>60 ml/min/1.73 sqM) Glucose 126 H (74-99) mg/dL Calcium 9.0 (8.4-10.2) mg/dL Magnesium 1.2 L (1.6-2.3) mg/dL Total Bilirubin 0.7 (0.2-1.3) mg/dL AST 86 H (17-59) U/L ALT 32 (4-49) U/L Alkaline Phosphatase 147 H (38-126) U/L Troponin I <0.012 (0.000-0.034) ng/mL Total Protein 7.8 (6.3-8.2) g/dL Albumin 4.1 (3.5-5.0) g/dL Serum Alcohol 105 mg/dL Critical Care Time Critical Care Time: Yes Total Critical Care Time: 35 Disposition Clinical Impression: Atrial fibrillation with RVR, Ventricular tachycardia, Hypomagnesemia, H/O ETOH abuse Disposition: ADMITTED IP TO THIS HOSP Condition: Serious Is patient prescribed a controlled substance at d/c from ED?: No Referrals: Jazzmine Lopez DO [Primary Care Provider] - 1-2 days Decision to Admit Reason: Admit from EC Decision Date: 02/21/20 Decision Time: 23:13
[2020-02-21 22:26] LABS: Anisocytosis Slight; HCT 42.2 % (39.0-53.0); HGB 13.4 gm/dL (13.0-17.5); Hypochromasia Slight; MCH 35.2 pg (25.0-35.0); MCHC 31.8 g/dL (31.0-37.0); MCV 110.8 fL (80.0-100.0); Macrocytosis Marked; Mean Platelet Volume 7.5; Platelet Count 235 k/uL (150-450); RBC 3.81 m/uL (4.30-5.90); RDW 16.4 % (11.5-15.5); WBC 9.1 k/uL (3.8-10.6)
[2020-02-21 22:30] LABS: Albumin 4.1 g/dL (3.5-5.0); Magnesium 1.2 mg/dL (1.6-2.3); Potassium 4.3 mmol/L (3.5-5.1); Total Bilirubin 0.7 mg/dL (0.2-1.3); Total Protein 7.8 g/dL (6.3-8.2)
[2020-02-21] MEDS: DILTIAZEM 125 MG in SODIUM CHLORIDE 0.9% 100 ML IV SCH (22:31)
--- NOTE | 2020-02-21 22:53 | XR ---
EXAMINATION TYPE: XR chest 1V portable DATE OF EXAM: 02/21/2020 COMPARISON: NONE HISTORY: Dysrhythmia TECHNIQUE: FINDINGS: There is some infiltrate and atelectasis left lung base. There is left axillary pacemaker. Right lung is fairly clear. There is elevated left diaphragm. Heart is enlarged. There is no heart failure. IMPRESSION: There is increased atelectasis at the left lung base and elevated left diaphragm compared to last exam. No heart failure seen.
[2020-02-21] MEDS: MAGNESIUM SULFATE-D5W PMX 1 GM in DEXTROSE/WATER 1 100ML.BAG IVPB SCH ×2 (22:59→23:58)
[2020-02-21] MEDS ORDERED: THIAMINE 100 MG/ML 2 ML VIAL IM STA (23:04)
[2020-02-21] MEDS ORDERED: LORazepam 2 MG/ML INJ IV PRN (23:04)
[2020-02-21] MEDS ORDERED: ACETAMINOPHEN TAB 325 MG TAB PO PRN (23:05)
[2020-02-21] MEDS ORDERED: NALOXONE 0.4 MG/ML 1 ML VIAL IV PRN (23:05)
[2020-02-21 23:26] LABS: INR 1.1 (<1.2); Partial Thromboplastin Time 23.4 sec (22.0-30.0); Prothrombin Time 11.2 sec (9.0-12.0)
[2020-02-21] MEDS ORDERED: DEXTROSE 5% IN WATER 100 ML with AMIODARONE 150 MG IV ONE (23:30)
[2020-02-21 23:34] LABS: Band Neutrophils % 12 %; Lymphocytes # (M) 0.91 k/uL (1.0-4.8); Monocytes # (M) 0.27 k/uL (0-1.0); Neutrophils % (M) 75 %; Nucleated Red Blood Cells 0 /100 WBC (0-0); Total Cells Counted 100
[2020-02-21 23:36] LABS: Poikilocytosis (M) Present
[2020-02-21] MEDS: SODIUM CHLORIDE 0.9% 1,000 ML IV SCH (23:38)
[2020-02-22] MEDS ORDERED: AMIODARONE 360 MG in DEXTROSE 5% IN WATER 200 ML IV ONE ×2
[2020-02-22 00:19] LABS: Glucose,Whole Blood 151 mg/dL (75-99)
[2020-02-22] MEDS: SODIUM CHLORIDE 0.9% 1,000 ML IV SCH (03:52)
[2020-02-22] MEDS: AMIODARONE 300 MG in DEXTROSE 5% IN WATER 250 ML IV SCH ×4 (05:33→16:09)
[2020-02-22 05:49] LABS: Calcium 8.4 mg/dL (8.4-10.2); Magnesium 1.7 mg/dL (1.6-2.3); Potassium 4.9 mmol/L (3.5-5.1)
[2020-02-22] MEDS: MAGNESIUM SULFATE-D5W PMX 1 GM in DEXTROSE/WATER 1 100ML.BAG IVPB SCH ×2 (06:27→08:13)
[2020-02-22] MEDS: THIAMINE 100 MG TAB PO SCH ×3 (06:27→16:09)
[2020-02-22] MEDS: allopurinoL 100 MG TAB PO SCH (08:14)
[2020-02-22] MEDS: POTASSIUM CHLORIDE ER 20 MEQ TAB.ER PO SCH ×2 (08:15→20:26)
[2020-02-22] MEDS: LORazepam 2 MG/ML INJ IV PRN ×3 (08:15→22:27)
[2020-02-22] MEDS: METOPROLOL TARTRATE 50 MG TAB PO SCH ×2 (08:15→20:26)
[2020-02-22] MEDS: ATORVASTATIN 20 MG TAB PO SCH (08:15)
[2020-02-22] MEDS: RIVAROXABAN 20 MG TAB PO SCH (08:18)
[2020-02-22] MEDS: TAMSULOSIN 0.4 MG CAP.ER.24H PO SCH (08:31)
[2020-02-22] MEDS: FUROSEMIDE 20 MG TAB PO SCH (08:31)
[2020-02-22] MEDS: ESCITALOPRAM 5 MG TAB PO SCH (08:31)
--- NOTE | 2020-02-22 10:27 | CONS ---
DOC Harris is an 80-year-old gentleman with history of cardiomyopathy, AICD, atrial fibrillation, ventricular tachycardia, prior ablation who used to follow up with a cable placer at [facility]. States that he has not seen anybody over the last several years. Came in to [facility] with having had a syncope at home. He apparently had an EMS discharge while he was being transported to the hospital by EMS. He developed an episode of ventricular tachycardia and was appropriately defibrillated. I do not have any rhythm strips from this time. The patient has history of ETOH abuse and actually was drinking and his alcohol level was elevated on his initial presentation. At the time of my evaluation this morning, he appears comfortable at rest and is free of significant symptoms. The patient is on multiple medications including an oral anticoagulant and amiodarone. PAST MEDICAL HISTORY: Significant for permanent atrial fibrillation, congestive heart failure, cardiomyopathy, AICD. MEDICATIONS: He is currently on Lipitor, Zyloprim, vitamin D, B12, Lasix, metoprolol, K-Dur, Xarelto, Flomax, magnesium, Thiamin. ALLERGIES: BEE VENOM. FAMILY HISTORY: Negative for premature coronary artery disease. SOCIAL HISTORY: Significant for smoking, EtOH abuse. REVIEW OF SYSTEMS: HEENT is unremarkable. Cardiac as described above. Respiratory as described above. GI negative. negative. ALLERGY none. SKIN negative. MUSCULOSKELETAL significant for arthritis. PSYCHOSOCIAL negative. CONSTITUTIONAL negative. DERM negative. ONCOLOGICAL negative. MILITARY PAY CLERK negative. Rest of the system review is not relevant. EXAM: Patient's heart rate is 100 beats per minute. Blood pressure is 149/74. Respiratory rate is 18. Chest exam reveals good air entry bilaterally. I do not hear any crackles or rhonchi. Heart exam reveals first and second heart sounds. No gallop. Irregular rhythm and a systolic murmur at the left lower sternal border. ABDOMEN: Soft. Exam of extremities did not reveal any edema. Peripheral pulses are felt. LABS: Labs show that the hemoglobin is 13.4, platelet count is 235, potassium is 4.9, creatinine is 1.1. First set of troponin is negative. AST is elevated at 86, AST is 32. CURRENT MEDICATIONS: Include Xarelto 20 mg daily, K-Dur 20 mEq b.i.d., Lipitor, amiodarone, currently on a drip will be switched to oral amiodarone, Lipitor 20 mg daily. EKG showed atrial fibrillation with rapid ventricular rate. A chest x-ray did not show any evidence of congestive heart failure. ASSESSMENT: 1. Ventricular tachycardia status post AICD, status post defibrillation. 2. Cardiomyopathy status post AICD. 3. Permanent atrial fibrillation with poorly controlled ventricular rate. PLAN: Will continue the heart rate more optimally with Lopressor 50 b.i.d. if necessary we can go up to 100 mg t.i.d. I will obtain a 2D echo to document his LV function. I am going to get hold of his records. We will get the AICD evaluated. I will add an SHAYAN inhibitor to his current medications. MMODL / IJN: [id number] /
--- NOTE | 2020-02-22 10:36 | P.CNPUL ---
History of Present Illness Consult date: 02/22/20 Chief complaint: Syncope History of present illness: This is a 80-year-old alcoholic male patient with an extensive cardiac history including cardiomyopathy and previous AICD placement. The patient had stopped his medication cardiac medication for the past 3-4 days and has been drinking alcohol excessively. He apparently had a syncopal episode at home and were not sure if the AICD fired. EMS called to the scene and during transport the [place] had another episode of syncope, V. tach and his AICD discharge. He was brought in today emergency and is started on IV amiodarone drip and he got transferred to the intensive care unit. His alcohol level was positive and elevated at time of admission. Currently is awake and alert without any focal neurological deficit. Denies having any chest pain. No nausea. No vomiting. No diarrhea. He is hemodynamically stable. His chest x-ray showing some atelectatic changes in the left lung base along with some mild elevation of left hemidiaphragm. The patient has an AICD in place. Right lung is essentially clear. His cardiac enzymes showed a troponin of 0.012. His EKG at a time of ad mission showed A. fib with RVR, currently is back into sinus. He is still having short runs of atrial fibrillation. The rate is controlled for now. Review of Systems Constitutional: Reports as per HPI Eyes: denies as per HPI, denies blurred vision, denies bulging eye, denies decreased vision, denies diplopia, denies discharge, denies dry eye, denies irritation, denies itching, denies pain, denies photophobia, denies loss of peripheral vision, denies loss of vision, denies tunnel vision/blind spots Ears: deny: decreased hearing, ear discharge, earache, tinnitus Ears, nose, mouth and throat: Denies headache, Denies sore throat Breasts: absent: as per HPI, gynecomastia Cardiovascular: Reports syncope Respiratory: Reports as per HPI Gastrointestinal: Reports as per HPI Genitourinary: Reports as per HPI Musculoskeletal: Reports as per HPI Musculoskeletal: absent: ankle pain, ankle stiffness, ankle swelling Integumentary: Reports as per HPI Neurological: Reports as per HPI Psychiatric: Reports as per HPI Endocrine: Reports as per HPI Hematologic/Lymphatic: Reports as per HPI Allergic/Immunologic: Reports as per HPI Past Medical History Past Medical History: Atrial Fibrillation, Heart Failure, GERD/Reflux, GI Bleed, Hyperlipidemia, Myocardial Infarction ([place]), Pneumonia, Prostate Disorder Additional Past Medical History / Comment(s): Afib, AICD.,Hx of ETOH abuse, Hx C-diff (2014)., iron anemia, BPH., gout, Hx of falls- uses walker with wheels., Pneumonia (January 2019), Hospital Adm 03/10/19 for nasal bleeding- received transfusions., Hx of blood clot in left arm., scab left arm., DaughterDora Baird lives with pt., Phimosis & Urine retention-Indwelling garcia catheter Placed by Dr Millard 03/30/19., Last Myocardial Infarction Date:: 2010 History of Any Multi-Drug Resistant Organisms: None Reported Date of last positivie culture/infection: 2014 MDRO Source:: stool Past Surgical History: AICD, Cardiac Ablation, Pacemaker Additional Past Surgical History / Comment(s): Bilateral cataract removals/lens implants., [employer] DUAL CHAMBER AICD/PACEMAKER REPLACED 03/27/2017. Past Anesthesia/Blood Transfusion Reactions: No Reported Reaction Additional Past Anesthesia/Blood Transfusion Reaction / Comment(s): RECENT BLOOD TRANSFUSIONS AT [facility].-DENIES REACTION Type of Cardiac Device: AICD Device Placement Date:: 03/27/2017 Past Psychological History: Depression Additional Psychological History / Comment(s): .. Smoking Status: Former smoker Past Alcohol Use History: Daily, Heavy Additional Past Alcohol Use History / Comment(s): Pt started smoking in 1954 and quit in 2010. Hx of 6 beers/day., Currently no alcohol since hospitalization in February 2019. Past Drug Use History: None Reported - Past Family History Mother Family Medical History: CVA/TIA, Diabetes Mellitus Additional Family Medical History / Comment(s): Mother had "severe" diabetes and a CVA. Father Family Medical History: CVA/TIA, GI Bleed Additional Family Medical History / Comment(s): Father had a CVA Medications and Allergies Home Medications Medication Instructions Recorded Confirmed Type Cholecalciferol (Vitamin D3) 2,000 unit PO HS 02/13/19 02/21/20 History [Vitamin D3] Cyanocobalamin (Vitamin B-12) 1,000 mcg PO DAILY 02/13/19 02/21/20 History [Vitamin B-12] Furosemide [Lasix] 20 mg PO DAILY 02/13/19 02/21/20 History Metoprolol Tartrate [Lopressor] 50 mg PO BID 02/13/19 02/21/20 History Potassium Chloride [Klor-Con 20] 20 meq PO BID 02/13/19 02/21/20 History Rivaroxaban [Xarelto] 20 mg PO DAILY 02/13/19 02/21/20 History Tamsulosin [Flomax] 0.4 mg PO DAILY 02/13/19 02/21/20 History Escitalopram [Lexapro] 5 mg PO DAILY 02/17/19 02/21/20 Rx Loratadine [Claritin] 10 mg PO DAILY #30 tab 03/14/19 02/21/20 Rx Multivitamins, Thera [Multivitamin 1 tab PO DAILY #30 tablet 03/14/19 02/21/20 Rx (formulary)] Ketotifen 0.025% Ophth Soln 1 drops LEFT EYE BID PRN 04/01/19 02/21/20 History [Zaditor] Magnesium 500 mg PO HS 04/01/19 02/21/20 History Thiamine [Vitamin B-1] 100 mg PO DAILY 04/01/19 02/21/20 History Allergies Allergy/AdvReac Type Severity Reaction Status Date / Time bee venom protein (honey bee) Allergy Anaphylaxis Verified 02/21/20 23:18 Physical Exam Vitals: Vital Signs Temp Pulse Resp BP Pulse Ox 02/22/20 07:00 101 H 17 149/74 95 02/22/20 06:00 93 21 142/90 95 02/22/20 05:00 88 19 143/67 95 02/22/20 04:30 90 19 94 L 02/22/20 04:00 98.8 F 98 19 138/62 94 L 02/22/20 03:30 105 H 22 133/76 95 02/22/20 03:00 96 18 128/81 94 L 02/22/20 02:30 101 H 16 137/72 94 L 02/22/20 02:00 110 H 17 128/69 93 L 02/22/20 01:30 108 H 19 128/76 93 L 02/22/20 01:00 110 H 21 119/69 94 L 02/22/20 00:30 99.5 F 106 H 23 134/92 96 02/21/20 23:13 125 H 17 127/84 98 02/21/20 21:56 98.1 F 150 H 17 113/79 96 Intake and Output 02/21/20 02/22/20 02/22/20 22:59 06:59 14:59 Intake Total 631.283 175 Output Total 25 Balance 631.283 150 Intake: Intake, IV Titration 631.283 175 Amount Diltiazem 125 mg In 6.283 Sodium Chloride 0.9% 100 ml @ 5 MG/HR 5 mls/hr IV .Q24H ROBERT Rx#:[id number] Magnesium Sulfate-D5w Pmx 100 100 1 gm In Dextrose/Water 1 100ml.bag @ 100 mls/hr IVPB Q1H ROBERT Rx#: [id number] Sodium Chloride 0.9% 1, 525 75 000 ml @ 75 mls/hr IV . [id number] ROBERT Rx#:[id number] Output: Urine 25 Other: Voiding Method Urinal Weight 77.111 kg 89.6 kg GENERAL EXAM: 80-year-old gentleman. Flat affect. Alert, fairly comfortable in no apparent distress. On room air. HEAD: Normocephalic. EYES: Normal reaction of pupils, equal size. NOSE: Clear with pink turbinates. THROAT: No erythema or exudates. NECK: No masses, no JVD. CHEST: No chest wall deformity. LUNGS: Equal air entry with crackles in left posterior base. Diminished.. CVS: S1 and S2 normal with no audible murmur, regular rhythm. ABDOMEN: No hepatosplenomegaly, normal bowel sounds, no guarding or rigidity. SPINE: No scoliosis or deformity SKIN: Abrasions on the bilateral knees. CENTRAL NERVOUS SYSTEM: No focal deficits, tone is normal in all 4 extremities. EXTREMITIES: There is trace peripheral edema. No clubbing, no cyanosis. Jada pheral pulses are intact. Results - Laboratory Findings CBC and BMP: 02/21/20 22:09 02/22/20 05:02 PT/INR, D-dimer PT 11.2 sec (9.0-12.0) 02/21/20 22:52 INR 1.1 (<1.2) 02/21/20 22:52 Abnormal lab findings: Abnormal Labs 02/21/20 02/21/20 02/22/20 22:09 22:09 00:17 RBC 3.81 L MCV 110.8 H MCH 35.2 H RDW 16.4 H Neutrophils # (Manual) 7.90 H Lymphocytes # (Manual) 0.91 L Macrocytosis Marked A Sodium Chloride 96 L Carbon Dioxide 17 L Glucose 126 H POC Glucose (mg/dL) 151 H Magnesium 1.2 L AST 86 H Alkaline Phosphatase 147 H 02/22/20 05:02 RBC MCV MCH RDW Neutrophils # (Manual) Lymphocytes # (Manual) Macrocytosis Sodium 132 L Chloride Carbon Dioxide Glucose 131 H POC Glucose (mg/dL) Magnesium AST Alkaline Phosphatase - Diagnostic Findings Chest x-ray: image reviewed Assessment and Plan Plan: #1 syncope secondary to recurrent V. tach's. The patient has cut a myopathy and has been noncompliant with his cardiac medication. In addition, has been drinking alcohol excessively. His AICD possibly discharged twice, one of them was witnessed while being transported to the hospital. At the time of admission he was in A. fib RVR, currently in normal sinus rhythm. He is on amiodarone drip for now. No signs of any Heart Failure. Troponins Are Not Elevated. EKG Not Showing Any Acute Ischemic Changes. #2 alcoholism with acute alcohol intoxication at time of admission #3 chronic paroxysmal atrial fibrillation and the patient has been maintained on long-term anticoagulants with Xarelto on outpatient basis. #4 coronary artery disease #5 previous history of C. diff colitis #6 Left lower lung with possibly chronic changes. Atelectasis/infiltrate/effusion. #7 50+ year smoking history, quit 2010. #8 previous history of myocardial infarction. #9 Ischemic cardiomyopathy status post AICD placement #10 Poor overall functional performance based on the above-mentioned multiple comorbidities. Plan Interrogated the AICD Continue the amiodarone Restart the beta blockers and the patient was started on metoprolol 50 mg twice a day Restart oral Lasix 20 mg by mouth daily obtain echocardiogram to assess LV function Keep the patient ICU for now
[2020-02-22] MEDS: lisinopriL 5 MG TAB PO SCH (11:48)
--- NOTE | 2020-02-22 13:19 | ECHOF ---
Referral Reason:[facility], firing of [facility] MEASUREMENTS -------- HEIGHT: 172.7 cm WEIGHT: 89.4 kg BP: 123/73 RVIDd: 3.0 cm (< 3.3) IVSd: 1.1 cm (0.6 - 1.1) LVIDd: 5.1 cm (3.9 - 5.3) LVPWd: 1.3 cm (0.6 - 1.1) IVSs: 2.0 cm LVIDs: 2.9 cm LVPWs: 1.7 cm LA Diam: 4.4 cm (2.7 - 3.8) Ao Diam: 4.3 cm (2.0 - 3.7) AV Cusp: 2.1 cm (1.5 - 2.6) MV EXCURSION: 16.074 mm (> 18.000) MV EF SLOPE: 89 mm/s (70 - 150) EPSS: 1.4 cm RAP: 5.00 mmHg RVSP: 27.16 mmHg FINDINGS -------- This was a technically difficult study with suboptimal views. The left ventricular size is normal. There is mild concentric left ventricular hypertrophy. Overa ll left ventricular systolic function is moderate-severely impaired with, an EF between 30 - 35 %. The right ventricle is normal in size. The left atrium is mildly dilated. The right atrium is normal in size. 4 ml of Lumason was utilized for enhancement of images. There is mild aortic valve sclerosis. Mild mitral annular calcification present. Mild tricuspid regurgitation present. Right ventricular systolic pressure is normal at < 35 mmHg. The pulmonic valve was not well visualized. The aortic root is dilated measuring 4.3cm. IVC Not well visulized. There is no pericardial effusion. CONCLUSIONS -------- 1. This was a technically difficult study with suboptimal views. 2. The left ventricular size is normal. 3. There is mild concentric left ventricular hypertrophy. 4. Overall left ventricular systolic function is moderate-severely impaired with, an EF between 30 - 35 %. 5. The right ventricle is normal in size. 6. The left atrium is mildly dilated. 7. The right atrium is normal in size. 8. 4 ml of Lumason was utilized for enhancement of images. 9. There is mild aortic valve sclerosis. 10. Mild mitral annular calcification present. 11. Mild tricuspid regurgitation present. 12. Right ventricular systolic pressure is normal at < 35 mmHg. 13. The pulmonic valve was not well visualized. 14. The aortic root is dilated measuring 4.3cm. 15. IVC Not well visulized. 16. There is no pericardial effusion. WOODWORKER HELPER: Nusrat Fuller RDCS
--- NOTE | 2020-02-22 13:51 | P.HPIM ---
History of Present Illness This is a pleasant 80 years old male with past medical history of atrial fibrillation, chronic heart failure status post cardiac ablation/pacemaker, status post AICD, GERD, GI bleed, hyperlipidemia, prostate disorder. He is a patient of Dr. Jocelyn peterson Presents because of near syncope or fall. This is a patient was drinking alcohol, he states he drinks about half of a pint, he was trying to sit down in his recliner when his legs felt very weak and gave way and he slipped on the floor, his son's help him up however he still felt weak and embolus was called for him on the way to the ambulance he felt his AICD firing shock. He denies chest pain or dyspnea he says he does not pass out completely. No palpitation. No change in urine or bowel habits. No vomiting or diarrhea. No fever He denies smoking or illicit drugs. 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 INR is unremarkable. Sodium 132, creatinine is normal at 1.1. Low magnesium at 1.2 corrected to 1.7, liver enzymes slightly elevated AST at 86 with normal ALT at 32 Chest x-ray: No acute process. EKG showing atrial fibrillation with a rate of 150 and QTC 508 Echocardiogram: Ejection fraction 30-35% He was started on Cardizem drip, switched later to amiodarone drip and amiodarone Review of Systems CONSTITUTIONAL: No fever, no malaise, no fatigue. HEENT: No recent visual problems or hearing problems. Denied any sore throat. CARDIOVASCULAR: No orthopnea, PND, no palpitations, no syncope. PULMONARY: No shortness of breath, no cough, no hemoptysis. GASTROINTESTINAL: No diarrhea, no nausea, no vomiting, no abdominal pain. Normoactive bowel sounds. NEUROLOGICAL: No headaches, no weakness, no numbness. HEMATOLOGICAL: Denies any bleeding or petechiae. GENITOURINARY: Denies any burning micturition, frequency, or urgency. MUSCULOSKELETAL/RHEUMATOLOGICAL: Denies any joint pain, swelling, or any muscle pain. ENDOCRINE: Denies any polyuria or polydipsia. Past Medical History Past Medical History: Atrial Fibrillation, Heart Failure, GERD/Reflux, GI Bleed, Hyperlipidemia, Myocardial Infarction ([place]), Pneumonia, Prostate Disorder Additional Past Medical History / Comment(s): Afib, AICD.,Hx of ETOH abuse, Hx C-diff (2014)., iron anemia, BPH., gout, Hx of falls- uses walker with wheels., Pneumonia (January 2019), Hospital Adm 03/10/19 for nasal bleeding- received transfusions., Hx of blood clot in left arm., scab left arm., Daughter- Brie lives with pt., Phimosis & Urine retention-Indwelling garcia catheter Placed by Dr Millard 03/30/19., Last Myocardial Infarction Date:: 2010 History of Any Multi-Drug Resistant Organisms: None Reported Date of last positivie culture/infection: 2014 MDRO Source:: stool Past Surgical History: AICD, Cardiac Ablation, Pacemaker Additional Past Surgical History / Comment(s): Bilateral cataract removals/lens implants., [employer] DUAL CHAMBER AICD/PACEMAKER REPLACED 03/27/2017. Past Anesthesia/Blood Transfusion Reactions: No Reported Reaction Additional Past Anesthesia/Blood Transfusion Reaction / Comment(s): RECENT BLOOD TRANSFUSIONS AT [facility].-DENIES REACTION Type of Cardiac Device: AICD Device Placement Date:: 03/27/2017 Past Psychological History: Depression Additional Psychological History / Comment(s): .. Smoking Status: Former smoker Past Alcohol Use History: Daily, Heavy Additional Past Alcohol Use History / Comment(s): Pt started smoking in 1954 and quit in 2010. Hx of 6 beers/day., Currently no alcohol since hospitalization in February 2019. Past Drug Use History: None Reported - Past Family History Mother Family Medical History: CVA/TIA, Diabetes Mellitus Additional Family Medical History / Comment(s): Mother had "severe" diabetes and a CVA. Father Family Medical History: CVA/TIA, GI Bleed Additional Family Medical History / Comment(s): Father had a CVA Medications and Allergies Home Medications Medication Instructions Recorded Confirmed Type Cholecalciferol (Vitamin D3) 2,000 unit PO HS 02/13/19 02/21/20 History [Vitamin D3] Cyanocobalamin (Vitamin B-12) 1,000 mcg PO DAILY 02/13/19 02/21/20 History [Vitamin B-12] Furosemide [Lasix] 20 mg PO DAILY 02/13/19 02/21/20 History Metoprolol Tartrate [Lopressor] 50 mg PO BID 02/13/19 02/21/20 History Potassium Chloride [Klor-Con 20] 20 meq PO BID 02/13/19 02/21/20 History Rivaroxaban [Xarelto] 20 mg PO DAILY 02/13/19 02/21/20 History Tamsulosin [Flomax] 0.4 mg PO DAILY 02/13/19 02/21/20 History Escitalopram [Lexapro] 5 mg PO DAILY 02/17/19 02/21/20 Rx Loratadine [Claritin] 10 mg PO DAILY #30 tab 03/14/19 02/21/20 Rx Multivitamins, Thera [Multivitamin 1 tab PO DAILY #30 tablet 03/14/19 02/21/20 Rx (formulary)] Ketotifen 0.025% Ophth Soln 1 drops LEFT EYE BID PRN 04/01/19 02/21/20 History [Zaditor] Magnesium 500 mg PO HS 04/01/19 02/21/20 History Thiamine [Vitamin B-1] 100 mg PO DAILY 04/01/19 02/21/20 History Allergies Allergy/AdvReac Type Severity Reaction Status Date / Time bee venom protein (honey bee) Allergy Anaphylaxis Verified 02/21/20 23:18 Physical Exam Vitals: Vital Signs Temp Pulse Resp BP Pulse Ox 02/22/20 11:03 20 02/22/20 10:00 67 20 02/22/20 09:00 98 20 02/22/20 08:00 98.7 F 92 17 148/70 94 L 02/22/20 07:00 101 H 17 149/74 95 02/22/20 06:00 93 21 142/90 95 02/22/20 05:00 88 19 143/67 95 02/22/20 04:30 90 19 94 L 02/22/20 04:00 98.8 F 98 19 138/62 94 L 02/22/20 03:30 105 H 22 133/76 95 02/22/20 03:00 96 18 128/81 94 L 02/22/20 02:30 101 H 16 137/72 94 L 02/22/20 02:00 110 H 17 128/69 93 L 02/22/20 01:30 108 H 19 128/76 93 L 02/22/20 01:00 110 H 21 119/69 94 L 02/22/20 00:30 99.5 F 106 H 23 134/92 96 02/21/20 23:13 125 H 17 127/84 98 02/21/20 21:56 98.1 F 150 H 17 113/79 96 Intake and Output 02/21/20 02/22/20 02/22/20 22:59 06:59 14:59 Intake Total 631.283 815 Output Total 300 Balance 631.283 515 Intake: IV 400 Amiodarone 300 mg In 200 Dextrose 5% in Water 250 ml @ 0.5 MG/MIN 25 mls/hr IV .Q10H [facility] Rx#: [id number] Magnesium Sulfate-D5w Pmx 200 1 gm In Dextrose/Water 1 100ml.bag @ 100 mls/hr IVPB Q1H [facility] Rx#: [id number] Intake, IV Titration 631.283 175 Amount Diltiazem 125 mg In 6.283 Sodium Chloride 0.9% 100 ml @ 5 MG/HR 5 mls/hr IV .Q24H [facility] Rx#:[id number] Magnesium Sulfate-D5w Pmx 100 100 1 gm In Dextrose/Water 1 100ml.bag @ 100 mls/hr IVPB Q1H [facility] Rx#: [id number] Sodium Chloride 0.9% 1, 525 75 000 ml @ 20 mls/hr IV . Q24H [facility] Rx#:[id number] Oral 240 Output: Urine 300 Other: Voiding Method Urinal Weight 77.111 kg 89.6 kg GENERAL: The patient is alert and oriented x3, not in any acute distress. Well developed, well nourished. HEENT: Pupils are round and equally reacting to light. EOMI. No scleral icterus. No conjunctival pallor. Normocephalic, atraumatic. No pharyngeal erythema. No thyromegaly. CARDIOVASCULAR: S1 and S2 present. No murmurs, rubs, or gallops. PULMONARY: Chest is clear to auscultation, no wheezing or crackles. ABDOMEN: Soft, nontender, nondistended, normoactive bowel sounds. No palpable organomegaly. MUSCULOSKELETAL: No joint swelling or deformity. EXTREMITIES: No cyanosis, clubbing, or pedal edema. NEUROLOGICAL: Gross neurological examination did not reveal any focal deficits. SKIN: No rashes. No petechiae Results CBC & Chem 7: 02/21/20 22:09 02/22/20 05:02 Labs: Abnormal Lab Results - Last 24 Hours (Table) 02/21/20 02/21/20 02/22/20 Range/Units 22:09 22:09 00:17 RBC 3.81 L (4.30-5.90) m/uL MCV 110.8 H (80.0-100.0) fL MCH 35.2 H (25.0-35.0) pg RDW 16.4 H (11.5-15.5) % Neutrophils # (Manual) 7.90 H (1.3-7.7) k/uL Lymphocytes # (Manual) 0.91 L (1.0-4.8) k/uL Macrocytosis Marked A Sodium (137-145) mmol/L Chloride 96 L (98-107) mmol/L Carbon Dioxide 17 L (22-30) mmol/L Glucose 126 H (74-99) mg/dL POC Glucose (mg/dL) 151 H (75-99) mg/dL Magnesium 1.2 L (1.6-2.3) mg/dL AST 86 H (17-59) U/L Alkaline Phosphatase 147 H (38-126) U/L 02/22/20 Range/Units 05:02 RBC (4.30-5.90) m/uL MCV (80.0-100.0) fL MCH (25.0-35.0) pg RDW (11.5-15.5) % Neutrophils # (Manual) (1.3-7.7) k/uL Lymphocytes # (Manual) (1.0-4.8) k/uL Macrocytosis Sodium 132 L (137-145) mmol/L Chloride (98-107) mmol/L Carbon Dioxide (22-30) mmol/L Glucose 131 H (74-99) mg/dL POC Glucose (mg/dL) (75-99) mg/dL Magnesium (1.6-2.3) mg/dL AST (17-59) U/L Alkaline Phosphatase (38-126) U/L Assessment and Plan Assessment: Near syncope mostly related to his cardiac arrhythmia Chronic systolic heart failure, status post AICD. EF 30-35% Chronic atrial fibrillation, with RVR on admission. status post ablation/pacemaker Alcohol abuse hypomagnesemia Hypertension Hyperlipidemia History of GI bleed History of prostate disorder Plan: This is a pleasant 80 years old male who presents with a pre-syncope related to cardiac arrhythmia. Cardiology and pulmonary/critical care consult. Continue with amiodarone per cartilages recommendation. Continue with thiamine and assess CIWA protocol protocol Labs and medication were reviewed.. Continue same treatment. Continue with symptomatic treatment. Resume home medication. Monitor lytes and vitals. DVT and GI prophylaxis. Further recommendations of the clinical course of the patient DVT prophylaxis: xarelto GI Prophylaxis: Ppi PT/OT: Pending Prognosis is guarded
[2020-02-22] MEDS: PANTOPRAZOLE 40 MG/10 ML VIAL IVP SCH (16:09)
[2020-02-22] MEDS: MAGNESIUM OXIDE 400 MG TAB PO SCH (20:26)
[2020-02-22] MEDS: AMIODARONE 200 MG TAB PO SCH (20:26)
[2020-02-22 23:57] LABS: Calcium 8.5 mg/dL (8.4-10.2)
[2020-02-22 23:58] LABS: Magnesium 2.2 mg/dL (1.6-2.3); Potassium 4.6 mmol/L (3.5-5.1)
[2020-02-23] MEDS: DILTIAZEM 125 MG in SODIUM CHLORIDE 0.9% 100 ML IV SCH (09:36)
[2020-02-23] MEDS: ATORVASTATIN 20 MG TAB PO SCH (09:51)
[2020-02-23] MEDS: FUROSEMIDE 20 MG TAB PO SCH (09:52)
[2020-02-23] MEDS: allopurinoL 100 MG TAB PO SCH (09:52)
[2020-02-23] MEDS: POTASSIUM CHLORIDE ER 20 MEQ TAB.ER PO SCH ×2 (09:52→20:45)
[2020-02-23] MEDS: TAMSULOSIN 0.4 MG CAP.ER.24H PO SCH (09:52)
[2020-02-23] MEDS: lisinopriL 5 MG TAB PO SCH (09:52)
[2020-02-23] MEDS: AMIODARONE 200 MG TAB PO SCH ×2 (09:52→20:45)
[2020-02-23] MEDS: METOPROLOL TARTRATE 50 MG TAB PO SCH ×2 (09:52→20:45)
[2020-02-23] MEDS: THIAMINE 100 MG TAB PO SCH ×3 (09:52→18:00)
[2020-02-23] MEDS: SODIUM CHLORIDE 0.9% 1,000 ML IV SCH (09:53)
[2020-02-23] MEDS: RIVAROXABAN 20 MG TAB PO SCH (09:53)
[2020-02-23] MEDS: ESCITALOPRAM 5 MG TAB PO SCH (09:53)
[2020-02-23] MEDS: PANTOPRAZOLE 40 MG/10 ML VIAL IVP SCH (09:56)
[2020-02-23] MEDS: LORazepam 2 MG/ML INJ IV PRN ×3 (10:24→22:30)
[2020-02-23 10:39] VITALS: BMI 30.3
--- NOTE | 2020-02-23 11:29 | PN ---
PROGRESS NOTE Steven is an 80-year-old gentleman who is admitted to ICU as an overflow following ventricular tachycardia and defibrillation. He also had atrial fibrillation with rapid ventricular rate. The patient has known history of atrial fibrillation and is currently on Xarelto. This morning, patient appears well. Denies chest pain, difficulty in breathing, or sustained palpitations. He is currently on amiodarone 200 b.i.d., Lipitor, Lasix, Zestril, Lopressor 50 b.i.d., K-Dur, and Xarelto. On exam, patient is comfortable at rest. Heart rate is 94 beats per minute. Blood pressure is 115/82, respiratory is 20. There is no jugular venous distention. Carotid upstroke is normal. There is no bruit. Chest exam reveals good air entry bilaterally. Heart exam reveals first and second heart sounds. Systolic murmur at the left lower sternal border. Abdomen is soft. Exam of extremities did not reveal any edema. Peripheral pulses are felt. LAB: Show that the potassium is 4.6, creatinine is 1.2, hemoglobin is 13.4, platelet count is 235. ASSESSMENT: 1. Ventricular tachycardia status post AICD discharge. 2. Persistent atrial fibrillation. 3. History of cardiomyopathy. PLAN: Patient will continue current medications. I will get his device checked and we are waiting for his hospital records. MMODL / IJN: [id number] /
--- NOTE | 2020-02-23 13:45 | P.PN ---
Subjective Progress Note Date: 02/23/20 Principal diagnosis: Syncope secondary to recurrent ventricular tachycardia. And underlying cardiomyopathy This is a 80-year-old alcoholic male patient with an extensive cardiac history including cardiomyopathy and previous AICD placement. The patient had stopped his medication cardiac medication for the past 3-4 days and has been drinking alcohol excessively. He apparently had a syncopal episode at home and were not sure if the AICD fired. EMS called to the scene and during transport the patient had another episode of syncope, V. tach and his AICD discharge. He was brought in today emergency and is started on IV amiodarone drip and he got transferred to the intensive care unit. His alcohol level was positive and elevated at time of admission. Currently is awake and alert without any focal neurological deficit. Denies having any chest pain. No nausea. No vomiting. No diarrhea. He is hemodynamically stable. His chest x-ray showing some atelectatic changes in the left lung base along with some mild elevation of left hemidiaphragm. The patient has an AICD in place. Right lung is essentially clear. His cardiac enzymes showed a troponin of 0.012. His EKG at a time of admission showed A. fib with RVR, currently is back into sinus. He is still having short runs of atrial fibrillation. The rate is controlled for now. Patient was reevaluated today on 02/23/20, patient remains in the ICU, he is doing well. No episodes of ventricular tachycardia since admission to the ICU. Patient is resting in bed he is on room air, he is in atrial fibrillation with a rate of 97. Blood pressure is stable. Patient states that he thinks he had a near syncopal episode, fell down, but did not lose consciousness. And he believes that his defibrillator fired twice. Clinically from the pulmonary perspective, the patient seems to be doing relatively well, and I plan to transfer the patient to a monitor bed on selective, patient is on amiodarone drip as per cardiology. And this will be switched to oral amiodarone. All labs were reviewed today. Objective - Vital Signs Vital signs: Vital Signs Temp 98.8 F 02/23/20 08:00 Pulse 71 02/23/20 13:00 Resp 21 02/23/20 13:00 BP 114/64 02/23/20 12:00 Pulse Ox 96 02/23/20 08:00 Intake & Output 02/22/20 02/23/20 02/23/20 18:59 06:59 18:59 Intake Total 1405 157.917 120 Output Total 750 0 200 Balance 655 157.917 -80 Weight 90.6 kg 90.6 kg Intake: IV 500 120 Amiodarone 300 mg In 300 Dextrose 5% in Water 250 ml @ 0.5 MG/MIN 25 mls/hr IV .Q10H [facility] Rx#: [id number] Magnesium Sulfate-D5w Pmx 200 1 gm In Dextrose/Water 1 100ml.bag @ 100 mls/hr IVPB Q1H [facility] Rx#: [id number] Sodium Chloride 0.9% 1, 120 000 ml @ 20 mls/hr IV . Q24H [facility] Rx#:[id number] Intake, IV Titration 425 107.917 Amount Amiodarone 300 mg In 250 107.917 Dextrose 5% in Water 250 ml @ 0.5 MG/MIN 25 mls/hr IV .Q10H [facility] Rx#: [id number] Magnesium Sulfate-D5w Pmx 100 1 gm In Dextrose/Water 1 100ml.bag @ 100 mls/hr IVPB Q1H [facility] Rx#: [id number] Sodium Chloride 0.9% 1, 75 000 ml @ 20 mls/hr IV . Q24H [facility] Rx#:[id number] Oral 480 50 Output: Urine 750 0 200 Other: Voiding Method Urinal Urinal # Voids 1 1 # Bowel Movements 3 - Exam Physical Exam: Revealed 80-year-old white male in no distress. On room air. Head: Atraumatic, normocephalic. HEENT:[Neck is supple.] [No neck masses.] [No thyromegaly.] [No JVD.] Chest: [Clear throughout, no crackles, no rhonchi, no wheezes.] Cardiac Exam: [Normal S1 and S2, no S3 gallop, no murmur.] Abdomen: [Soft, nontender, no megaly, no rebound, no guarding, normal bowel sounds.] Extremities: [No clubbing, trace of bipedal edema, no cyanosis.] Neurological Exam: [No focal neurologic deficit.] Alert and oriented 3. Psychiatric: Normal mood, affect and normal mental status examination. - Labs CBC & Chem 7: 02/21/20 22:09 02/22/20 23:24 Labs: Abnormal Lab Results - Last 24 Hours (Table) 02/22/20 Range/Units 23:24 Sodium 131 L (137-145) mmol/L Glucose 101 H (74-99) mg/dL Assessment and Plan Assessment: Impression: Acute syncopal episode secondary to cardiac arrhythmia, recurrent ventricular tachycardia. Chronic ischemic cardiomyopathy and previous AICD placement Atrial fibrillation with RVR on presentation. Chronic paroxysmal atrial fibrillation. Coronary artery disease. Left lower lobe atelectasis. Possibly a small effusion. [id number] smoking history, quit in 2010. Poor functional performance secondary to multiple comorbidities. Recommendation: Continue present treatment plan as per cardiology. Switch amiodarone to oral Continue beta blockers. Continue Lasix. Consider testing the patient to a monitored bed on selective today. Overall long-term prognosis is extremely poor and guarded considering his severe cardiomyopathy and LV dysfunction. We'll continue to follow. Time with Patient: Less than 30
--- NOTE | 2020-02-23 14:41 | P.PN ---
Subjective Progress Note Date: 02/23/20 This is an 80-year-old gentleman admitted with syncope secondary to recurrent ventricular tachycardia in a patient with prior AICD placement, underlying cardiomyopathy and multiple other medical issues. Currently in ICU maintained on amiodarone drip, beta antoinette increased. Telemetry sinus rhythm with co ntrolled ventricular rate. Pacemaker interrogated. Denies chest pain, palpitations or shortness of breath. Maintained on CIWA protocol, CIWA score currently at 8. Objective - Vital Signs Vital signs: Vital Signs Temp 98.8 F 02/23/20 08:00 Pulse 71 02/23/20 13:00 Resp 21 02/23/20 13:00 BP 114/64 02/23/20 12:00 Pulse Ox 96 02/23/20 08:00 Intake & Output 02/22/20 02/23/20 02/23/20 18:59 06:59 18:59 Intake Total 1405 157.917 120 Output Total 750 0 200 Balance 655 157.917 -80 Weight 90.6 kg 90.6 kg Intake: IV 500 120 Amiodarone 300 mg In 300 Dextrose 5% in Water 250 ml @ 0.5 MG/MIN 25 mls/hr IV .Q10H [facility] Rx#: [id number] Magnesium Sulfate-D5w Pmx 200 1 gm In Dextrose/Water 1 100ml.bag @ 100 mls/hr IVPB Q1H [facility] Rx#: [id number] Sodium Chloride 0.9% 1, 120 000 ml @ 20 mls/hr IV . Q24H [facility] Rx#:[id number] Intake, IV Titration 425 107.917 Amount Amiodarone 300 mg In 250 107.917 Dextrose 5% in Water 250 ml @ 0.5 MG/MIN 25 mls/hr IV .Q10H [facility] Rx#: [id number] Magnesium Sulfate-D5w Pmx 100 1 gm In Dextrose/Water 1 100ml.bag @ 100 mls/hr IVPB Q1H [facility] Rx#: [id number] Sodium Chloride 0.9% 1, 75 000 ml @ 20 mls/hr IV . Q24H [facility] Rx#:[id number] Oral 480 50 Output: Urine 750 0 200 Other: Voiding Method Urinal Urinal # Voids 1 1 # Bowel Movements 3 - Exam PHYSICAL EXAM: VITAL SIGNS: As above GENERAL: Sitting up in bed, no acute distress HEENT: Conjunctivae normal. eyes normal. Oral mucosa moist NECK: No JVD. No thyroid enlargement. No LNs CARDIOVASCULAR: S1, S2 regular. No murmur RESPIRATION: Breath sounds diminished in the bases. No rhonchi or crackles. No bronchial breathing. ABDOMEN: Soft, nontender . No guarding. no masses palpable. No ascites, No hepatosplenomegaly.Bowel sounds heard. LEGS: No edema. no swelling PSYCHIATRY: Alert and oriented X3, mood and affect normal. NERVOUS SYSTEM: Cranial N 2-12 grossly normal. Moves all 4 limbs. Diffuse weakness, No focal deficits. Strength and sensation grossly intact.. Skin: Warm and dry, no rash Lymphatic system. No LN neck axilla. - Labs CBC & Chem 7: 02/21/20 22:09 02/22/20 23:24 Labs: Abnormal Lab Results - Last 24 Hours (Table) 02/22/20 Range/Units 23:24 Sodium 131 L (137-145) mmol/L Glucose 101 H (74-99) mg/dL Assessment and Plan Assessment: Near syncope mostly related to his cardiac arrhythmia, recurrent ventricular tachycardia Chronic systolic heart failure, chronic ischemic cardiomyopathy ,status post AICD. EF 30-35% Chronic paroxysmal atrial fibrillation, with RVR on admission. Currently controlled ventricular rate. Hyponatremia Left lower lobe atelectasis Alcohol abuse hypomagnesemia Hypertension Hyperlipidemia History of extensive nicotine dependence 50 years History of GI bleed History of prostate disorder Plan: Continue on current medication regime , beta antoinette, Lasix ,monitoring and symptomatic treatment. Amiodarone drip and converted to oral as per c ardiology. Possibly Transfer to telemetry floor. Maintain CIWA protocol. Prognosis guarded given multiple complex medical issues. The impression and plan of care has been dictated as directed. : I performed a history and examination of this patient, discussed the same with the dictator. I agree with the dictator's note ,documented as a scribe. Any additional findings or plans will be noted.
[2020-02-23] MEDS: MAGNESIUM OXIDE 400 MG TAB PO SCH (20:45)
[2020-02-24] MEDS: THIAMINE 100 MG TAB PO SCH ×3 (06:29→17:56)
[2020-02-24] MEDS: SODIUM CHLORIDE 0.9% 1,000 ML IV SCH (09:46)
[2020-02-24] MEDS: FUROSEMIDE 20 MG TAB PO SCH (09:47)
[2020-02-24] MEDS: allopurinoL 100 MG TAB PO SCH (09:48)
[2020-02-24] MEDS: AMIODARONE 200 MG TAB PO SCH ×2 (09:48→19:59)
[2020-02-24] MEDS: RIVAROXABAN 20 MG TAB PO SCH (09:48)
[2020-02-24] MEDS: POTASSIUM CHLORIDE ER 20 MEQ TAB.ER PO SCH ×2 (09:48→19:59)
[2020-02-24] MEDS: METOPROLOL TARTRATE 50 MG TAB PO SCH ×2 (09:48→19:59)
[2020-02-24] MEDS: lisinopriL 5 MG TAB PO SCH (09:48)
[2020-02-24] MEDS: ATORVASTATIN 20 MG TAB PO SCH (09:48)
[2020-02-24] MEDS: TAMSULOSIN 0.4 MG CAP.ER.24H PO SCH (09:48)
[2020-02-24] MEDS: PANTOPRAZOLE 40 MG/10 ML VIAL IVP SCH (09:49)
[2020-02-24] MEDS: ESCITALOPRAM 5 MG TAB PO SCH (09:49)
--- NOTE | 2020-02-24 10:53 | P.PN ---
Subjective Progress Note Date: 02/24/20 This is an 80-year-old gentleman admitted with syncope secondary to recurrent ventricular tachycardia in a patient with prior AICD placement, underlying cardiomyopathy and multiple other medical issues. Currently in ICU maintained on amiodarone drip, beta antoinette increased. Telemetry sinus rhythm with co ntrolled ventricular rate. Pacemaker interrogated. Denies chest pain, palpitations or shortness of breath. Maintained on CIWA protocol, CIWA score currently at 8. 02/24/2020 transferred out of ICU, currently on telemetry unit. Antiarrhythmics as per cardiology. Telemetry atrial fibrillation with controlled heart rate in the 90s with occasional pacing. Denies chest pain, palpitations or shortness of breath. Significant shaking, CIWA score 5. Evaluated by physical therapy, patient is maximum assist with subacute rehab recommended at discharge. Objective - Vital Signs Vital signs: Vital Signs Temp 98.5 F 02/24/20 08:00 Pulse 67 02/24/20 08:00 Resp 18 02/24/20 08:00 BP 114/59 02/24/20 08:00 Pulse Ox 92 L 02/24/20 08:00 Intake & Output 02/23/20 02/24/20 02/24/20 18:59 06:59 18:59 Intake Total 502 Output Total 200 100 Balance 302 -100 Weight 90.6 kg Intake: IV 280 Sodium Chloride 0.9% 1, 280 000 ml @ 20 mls/hr IV . Q24H [facility] Rx#:[id number] Oral 222 Output: Urine 200 100 Other: Voiding Method Urinal Urinal # Voids 1 1 # Bowel Movements 0 - Exam PHYSICAL EXAM: VITAL SIGNS: As above GENERAL: Sitting up in bed, no acute distress, shaky HEENT: Conjunctivae normal. eyes normal. Oral mucosa moist NECK: No JVD. No thyroid enlargement. No LNs CARDIOVASCULAR: S1, S2 regular. No murmur RESPIRATION: Breath sounds diminished in the bases. No rhonchi or crackles. ABDOMEN: Soft, nontender . No guarding. no masses palpable. Bowel sounds heard. LEGS: No edema. no swelling PSYCHIATRY: Alert and oriented X3, mood and affect normal. NERVOUS SYSTEM: Cranial N 2-12 grossly normal. Moves all 4 limbs. Diffuse weakness, No focal deficits. Strength and sensation grossly intact.. Skin: Warm and dry, no rash - Labs CBC & Chem 7: 06/27/20 22:09 02/22/20 23:24 Assessment and Plan Assessment: Near syncope mostly related to his cardiac arrhythmia, recurrent ventricular tachycardia Chronic systolic heart failure, chronic ischemic cardiomyopathy ,status post AICD. EF 30-35% Chronic paroxysmal atrial fibrillation, with RVR on admission. Currently controlled ventricular rate. Hyponatremia Left lower lobe atelectasis Alcohol abuse hypomagnesemia Hypertension Hyperlipidemia History of extensive nicotine dependence 50 years History of GI bleed History of prostate disorder Plan: Continue on current medication regime , beta antoinette, Lasix ,monitoring and symptomatic treatment. Antiarrhythmics as per cardiology .continue with CIWA protocol. Alcohol cessation reinforced. Discharge planning in progress for possibly tomorrow pending cardiology's final DC recommendations and clearance. Prognosis guarded given multiple complex medical issues. The impression and plan of care has been dictated as directed. : I performed a history and examination of this patient, discussed the same with the dictator. I agree with the dictator's note ,documented as a scribe. Any additional findings or plans will be noted.
--- NOTE | 2020-02-24 11:34 | P.PN ---
Subjective Progress Note Date: 02/24/20 This is an 80-year-old gentleman with history of EtOH abuse, extensive cardiac history including ischemic cardiomyopathy with prior AICD implantation, hyperlipidemia, paroxysmal atrial fibrillation, history of C. diff, who presented to the hospital after discontinuing all of his cardiac medications at home, and drinking significant amounts of alcohol, experienced a syncopal episode with questionable firing of his AICD. EMS was called and during transport the patient had an episode of syncope, evidence of ventricular tachycardia with AICD discharge. Patient was seen in consultation yesterday by Dr. Chavez in the intensive care unit. The patient's AICD was interrogated, it did reveal evidence of 2 shocks patient apparently is in atrial fibrillation 1% of the time, did have several episodes of ventricular tachycardia and ventricular fibrillation. Patient also had 17 paced terminated episodes. Blood pressure this morning 114/60 with a heart rate of 60, 92% on room air. Sodium 131, potassium 4.6, BUN 20, creatinine 1.2, magnesium 2.2. Echocardiogram with Doppler study was performed which revealed an ejection fraction of 30-35%. Objective - Vital Signs Vital signs: Vital Signs Temp 98.5 F 02/24/20 08:00 Pulse 67 02/24/20 08:00 Resp 18 02/24/20 08:00 BP 114/59 02/24/20 08:00 Pulse Ox 92 L 02/24/20 08:00 Intake & Output 02/23/20 02/24/20 02/24/20 18:59 06:59 18:59 Intake Total 502 Output Total 200 100 Balance 302 -100 Weight 90.6 kg Intake: IV 280 Sodium Chloride 0.9% 1, 280 000 ml @ 20 mls/hr IV . Q24H [facility] Rx#:[id number] Oral 222 Output: Urine 200 100 Other: Voiding Method Urinal Urinal # Voids 1 1 # Bowel Movements 0 - Exam GENERAL EXAM: 80-year-old gentleman. Flat affect. Alert, fairly comfortable in no apparent distress. On room air. HEAD: Normocephalic. EYES: Normal reaction of pupils, equal size. NOSE: Clear with pink turbinates. THROAT: No erythema or exudates. NECK: No masses, no JVD. CHEST: No chest wall deformity. LUNGS: Equal air entry with crackles in left posterior base. Diminished.. CVS: S1 and S2 normal with no audible murmur, regular rhythm. ABDOMEN: No hepatosplenomegaly, normal bowel sounds, no guarding or rigidity. SPINE: No scoliosis or deformity SKIN: Abrasions on the bilateral knees. CENTRAL NERVOUS SYSTEM: No focal deficits, tone is normal in all 4 extremities. EXTREMITIES: There is trace peripheral edema. No clubbing, no cyanosis. Peripheral pulses are intact. - Labs CBC & Chem 7: 02/21/20 22:09 02/22/20 23:24 Assessment and Plan Plan: Assessment and Plan: #1 syncope secondary to recurrent V. tach's. The patient has ICM and has been noncompliant with his cardiac medication. In addition, has been drinking alcohol excessively. His AICD discharged twice, one of them was witnessed while being transported to the hospital. He is persistently in atrial fibrillation, several episodes of anterior tachycardia pacing for vtach #2 alcoholism with acute alcohol intoxication at time of admission #3 chronic paroxysmal atrial fibrillation and the patient has been maintained on long-term anticoagulants with Xarelto on outpatient basis. #4 coronary artery disease #5 previous history of C. diff colitis #6 Left lower lung with possibly chronic changes. Atelectasis/infiltrate/effusion. #7 50+ year smoking history, quit 2010. #8 previous history of myocardial infarction. #9 Ischemicardiomyopathy status post AICD placement #10 Poor overall functional performance based on the above-mentioned multiple comorbidities. Plan From cardiology's perspective, we'll continue current dose of amiodarone, continue metoprolol 50 mg one tablet by mouth twice a day. Further recommendations to follow. DNP note has been reviewed, I agree with a documented findings and plan of care. Patient was seen and examined.
[2020-02-24] MEDS: MAGNESIUM OXIDE 400 MG TAB PO SCH (19:59)
[2020-02-25] MEDS: THIAMINE 100 MG TAB PO SCH ×2 (06:59→09:17)
[2020-02-25] MEDS: FUROSEMIDE 20 MG TAB PO SCH (09:08)
[2020-02-25] MEDS: POTASSIUM CHLORIDE ER 20 MEQ TAB.ER PO SCH (09:08)
[2020-02-25] MEDS: METOPROLOL TARTRATE 50 MG TAB PO SCH (09:08)
[2020-02-25] MEDS: ATORVASTATIN 20 MG TAB PO SCH (09:08)
[2020-02-25] MEDS: RIVAROXABAN 20 MG TAB PO SCH (09:08)
[2020-02-25] MEDS: ESCITALOPRAM 5 MG TAB PO SCH (09:08)
[2020-02-25] MEDS: AMIODARONE 200 MG TAB PO SCH (09:09)
[2020-02-25] MEDS: allopurinoL 100 MG TAB PO SCH (09:09)
[2020-02-25] MEDS: PANTOPRAZOLE 40 MG/10 ML VIAL IVP SCH (09:09)
[2020-02-25] MEDS: lisinopriL 5 MG TAB PO SCH (09:09)
[2020-02-25] MEDS: TAMSULOSIN 0.4 MG CAP.ER.24H PO SCH (09:09)
[2020-02-25 09:34] VITALS: TEMP 98.2
--- NOTE | 2020-02-25 10:01 | P.DS ---
Providers Date of admission: 02/21/20 23:05 Expected date of discharge: 02/25/20 Attending physician: Obed Lopez MD Consults: 02/21/20 23:06 Consult Physician Routine Consulting Provider: Robert Reynolds Consult Reason/Comments: A. fib with RVR, status post AICD Do you want consulting provider notified?: Already Contacted 02/21/20 23:15 Consult Physician Routine Consulting Provider: Tonio Diop Consult Reason/Comments: A. fib with RVR, ventricular tachycardia, hypomagnesemia Do you want consulting provider notified?: Already Contacted Primary care physician: [facility] Course: Final Diagnoses: Near syncope mostly related to his cardiac arrhythmia, recurrent ventricular tachycardia Chronic systolic heart failure, chronic ischemic cardiomyopathy ,status post AICD. EF 30-35% Chronic paroxysmal atrial fibrillation, with RVR on admission. Currently controlled ventricular rate. Hyponatremia Left lower lobe atelectasis Alcohol abuse hypomagnesemia Hypertension Hyperlipidemia History of extensive nicotine dependence 50 years History of GI bleed History of prostate disorder Hospital course:This is an 80-year-old gentleman admitted with syncope secondary to recurrent ventricular tachycardia in a patient with prior AICD placement, underlying cardiomyopathy and multiple other medical issues. Currently in ICU maintained on amiodarone drip, beta antoinette increased. Telemetry sinus rhythm with controlled ventricular rate. Pacemaker interrogated. Denies chest pain, palpitations or shortness of breath. Maintained on CIWA protocol, CIWA score currently at 8. 02/24/2020 transferred out of ICU, currently on telemetry unit. Antiarrhythmics as per cardiology. Telemetry atrial fibrillation with controlled heart rate in the 90s with occasional pacing. Denies chest pain, palpitations or shortness of breath. Significant shaking, CIWA score 5. Evaluated by physical therapy, patient is maximum assist with subacute rehab recommended at discharge. Telemetry A. fib with controlled ventricular rate, occasional pacing. CIWA score 1. Denies chest pain, palpitations or shortness of breath. Significant clinical improvement. Patient will be discharged to subacute rehab today pending final DC recommendations and clearance from cardiology. The impression and plan of care has been dictated as directed. : I performed a history and examination of this patient, discussed the same with the dictator. I agree with the dictator's note ,documented as a scribe. Any additional findings or plans will be noted. Patient Condition at Discharge: Stable Plan - Discharge Summary Discharge Rx Participant: No New Discharge Prescriptions: New Amiodarone [Cordarone] 200 mg PO BID tab Folic Acid 1 mg PO DAILY #30 tablet Atorvastatin [Lipitor] 20 mg PO DAILY tab Pantoprazole Sodium [Protonix] 40 mg PO DAILY #1 tablet. Acetaminophen Tab [Tylenol] 650 mg PO Q6HR PRN tab PRN Reason: Mild Pain Or Fever > 100.5 Lisinopril [Zestril] 5 mg PO DAILY tab Allopurinol [Zyloprim] 100 mg PO DAILY tab Continue Cyanocobalamin (Vitamin B-12) [Vitamin B-12] 1,000 mcg PO DAILY Tamsulosin [Flomax] 0.4 mg PO DAILY Rivaroxaban [Xarelto] 20 mg PO DAILY Metoprolol Tartrate [Lopressor] 50 mg PO BID Potassium Chloride [Klor-Con 20] 20 meq PO BID Furosemide [Lasix] 20 mg PO DAILY Cholecalciferol (Vitamin D3) [Vitamin D3] 2,000 unit PO HS Escitalopram [Lexapro] 5 mg PO DAILY Loratadine [Claritin] 10 mg PO DAILY #30 tab Multivitamins, Thera [Multivitamin (formulary)] 1 tab PO DAILY #30 tablet Magnesium 500 mg PO HS Thiamine [Vitamin B-1] 100 mg PO DAILY Ketotifen 0.025% Ophth Soln [Zaditor] 1 drops LEFT EYE BID PRN PRN Reason: Itching Discharge Medication List Cholecalciferol (Vitamin D3) [Vitamin D3] 2,000 unit PO HS 02/13/19 [History] Cyanocobalamin (Vitamin B-12) [Vitamin B-12] 1,000 mcg PO DAILY 02/13/19 [History] Furosemide [Lasix] 20 mg PO DAILY 02/13/19 [History] Metoprolol Tartrate [Lopressor] 50 mg PO BID 02/13/19 [History] Potassium Chloride [Klor-Con 20] 20 meq PO BID 02/13/19 [History] Rivaroxaban [Xarelto] 20 mg PO DAILY 02/13/19 [History] Tamsulosin [Flomax] 0.4 mg PO DAILY 02/13/19 [History] Escitalopram [Lexapro] 5 mg PO DAILY 02/17/19 [Rx] Loratadine [Claritin] 10 mg PO DAILY #30 tab 03/14/19 [Rx] Multivitamins, Thera [Multivitamin (formulary)] 1 tab PO DAILY #30 tablet 03/14/19 [Rx] Ketotifen 0.025% Ophth Soln [Zaditor] 1 drops LEFT EYE BID PRN 04/01/19 [History] Magnesium 500 mg PO HS 04/01/19 [History] Thiamine [Vitamin B-1] 100 mg PO DAILY 04/01/19 [History] Acetaminophen Tab [Tylenol] 650 mg PO Q6HR PRN tab 02/25/20 [Rx] Allopurinol [Zyloprim] 100 mg PO DAILY tab 02/25/20 [Rx] Amiodarone [Cordarone] 200 mg PO BID tab 02/25/20 [Rx] Atorvastatin [Lipitor] 20 mg PO DAILY tab 02/25/20 [Rx] Folic Acid 1 mg PO DAILY #30 tablet 02/25/20 [Rx] Lisinopril [Zestril] 5 mg PO DAILY tab 02/25/20 [Rx] Pantoprazole Sodium [Protonix] 40 mg PO DAILY #1 tablet. 02/25/20 [Rx] Follow up Appointment(s)/Referral(s): Jazzmine Lopez DO [Primary Care Provider] - 1 Week (After DC from subacute rehab) Activity/Diet/Wound Care/Special Instructions: Pilo Espinal.Pending final DC recommendations, amiodarone taper and clearance from cardiology. Confirm cardiology follow-up appointment prior to discharge. Discharge Disposition: TRANSFER TO SNF/ECF
[2020-02-25] MEDS: SODIUM CHLORIDE 0.9% 1,000 ML IV SCH (11:52)
--- NOTE | 2020-02-25 11:56 | P.PN ---
Subjective Progress Note Date: 02/25/20 This is an 80-year-old gentleman with history of EtOH abuse, extensive cardiac history including ischemic cardiomyopathy with prior AICD implantation, hyperlipidemia, paroxysmal atrial fibrillation, history of C. diff, who presented to the hospital after discontinuing all of his cardiac medications at home, and drinking significant amounts of alcohol, experienced a syncopal episode with questionable firing of his AICD. EMS was called and during transport the patient had an episode of syncope, evidence of ventricular tachycardia with AICD discharge. Patient was seen in consultation yesterday by Dr. Chavez in the intensive care unit. The patient's AICD was interrogated, it did reveal evidence of 2 shocks patient apparently is in atrial fibrillation 1% of the time, did have several episodes of ventricular tachycardia and ventricular fibrillation. Patient also had 17 paced terminated episodes. Blood pressure this morning 114/60 with a heart rate of 60, 92% on room air. Sodium 131, potassium 4.6, BUN 20, creatinine 1.2, magnesium 2.2. Echocardiogram with Doppler study was performed which revealed an ejection fraction of 30-35%. 02/25/2020 Patient was seen and examined this morning, no complaints. He's had no ventricular tachycardia noted on the monitor. Blood pressure 136/70 with a heart rate in the 60s. No lab data today. Objective - Vital Signs Vital signs: Vital Signs Temp 98.2 F 02/25/20 08:00 Pulse 83 02/25/20 08:00 Resp 17 02/25/20 08:00 BP 118/56 02/25/20 08:00 Pulse Ox 96 02/25/20 08:00 Intake & Output 02/24/20 02/25/20 02/25/20 18:59 06:59 18:59 Intake Total 0 Output Total 600 450 Balance -600 -450 0 Weight 70 kg Intake: Oral 0 Output: Urine 600 450 Other: Voiding Method Urinal # Voids 1 # Bowel Movements 0 1 - Exam GENERAL EXAM: 80-year-old gentleman. Flat affect. Alert, fairly comfortable in no apparent distress. On room air. HEAD: Normocephalic. EYES: Normal reaction of pupils, equal size. NOSE: Clear with pink turbinates. THROAT: No erythema or exudates. NECK: No masses, no JVD. CHEST: No chest wall deformity. LUNGS: Equal air entry with crackles in left posterior base. Diminished.. CVS: S1 and S2 normal with no audible murmur, regular rhythm. ABDOMEN: No hepatosplenomegaly, normal bowel sounds, no guarding or rigidity. SPINE: No scoliosis or deformity SKIN: Abrasions on the bilateral knees. CENTRAL NERVOUS SYSTEM: No focal deficits, tone is normal in all 4 extremities. EXTREMITIES: There is trace peripheral edema. No clubbing, no cyanosis. Peripheral pulses are intact. - Labs CBC & Chem 7: 02/21/20 22:09 02/22/20 23:24 Assessment and Plan Plan: Assessment and Plan: #1 syncope secondary to recurrent V. tach's. The patient has ICM and has been noncompliant with his cardiac medication. In addition, has been drinking alcohol excessively. His AICD discharged twice, one of them was witnessed while being transported to the hospital. He is persistently in atrial fibrillation, several episodes of anterior tachycardia pacing for vtach #2 alcoholism with acute alcohol intoxication at time of admission #3 chronic paroxysmal atrial fibrillation and the patient has been maintained on long-term anticoagulants with Xarelto on outpatient basis. #4 coronary artery disease #5 previous history of C. diff colitis #6 Left lower lung with possibly chronic changes. Atelectasis/infiltrate/effusion. #7 50+ year smoking history, quit 2010. #8 previous history of myocardial infarction. #9 Ischemicardiomyopathy status post AICD placement #10 Poor overall functional performance based on the above-mentioned multiple comorbidities. Plan From cardiology's perspective, we'll continue current dose of amiodarone, continue metoprolol 50 mg one tablet by mouth twice a day. He will be discharged home today. 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 DNP note has been reviewed, I agree with a documented findings and plan of care. Patient was seen and examined.
[2020-02-25 13:05] VITALS: BP 136/71; PULSE 74; RESP 16
[2020-02-26] MEDS ORDERED: PANTOPRAZOLE 40 MG TABLET PO SCH (07:30)
== END 2020-02-25 13:50 | DRG 309 ==
LOC: EC 21:55 → 2SICU 23:05 → 3SCARD 02-23 13:36
PROVIDERS: ADMIT Family Medicine; ATTEND Family Medicine
DX: I47.2 Ventricular tachycardia (principal); I50.22 Chronic systolic (congestive) heart failure; E87.1 Hypo-osmolality and hyponatremia; J98.11 Atelectasis; I48.21 Permanent atrial fibrillation; I25.10 Atherosclerotic heart disease of native coronary artery without angina pectoris; F32.9 Major depressive disorder, single episode, unspecified; E78.5 Hyperlipidemia, unspecified; N40.0 Benign prostatic hyperplasia without lower urinary tract symptoms; Z96.1 Presence of intraocular lens; E83.42 Hypomagnesemia; I25.5 Ischemic cardiomyopathy; I11.0 Hypertensive heart disease with heart failure; F10.229 Alcohol dependence with intoxication, unspecified; K21.9 Gastro-esophageal reflux disease without esophagitis; Z11.59 Encounter for screening for other viral diseases; Z87.01 Personal history of pneumonia (recurrent); Z79.01 Long term (current) use of anticoagulants; Z79.899 Other long term (current) drug therapy; Z91.030 Bee allergy status; Z91.81 History of falling; I25.2 Old myocardial infarction; Z95.810 Presence of automatic (implantable) cardiac defibrillator; Z98.890 Other specified postprocedural states; Z98.42 Cataract extraction status, left eye; Z98.41 Cataract extraction status, right eye; Z82.3 Family history of stroke; Z83.3 Family history of diabetes mellitus; Z87.891 Personal history of nicotine dependence; Z86.19 Personal history of other infectious and parasitic diseases; Z91.19 Patient's noncompliance with other medical treatment and regimen
CPT/HCPCS: 36415; 71045; 80048; 80053; 80320; 83735; 84443; 84484; 85025; 85610; 85730; 93005; 93306; 96365; 96366; 96367; 96368; 96372; 96376; 99291

== ENCOUNTER 2020-08-14 16:07 | Inpatient (IN) | payer MEDICARE ==
[2020-08-14] MEDS ORDERED: SODIUM CHLORIDE 0.9% 500 ML 500 ML IV STA (16:54)
[2020-08-14 17:31] LABS: Anisocytosis Slight; Basophils % (A) 0 %; Eosinophils % (A) 0 %; HCT 36.5 % (39.0-53.0); HGB 11.6 gm/dL (13.0-17.5); Lymphocytes # (A) 0.9 k/uL (1.0-4.8); Lymphocytes % (A) 13 %; MCH 30.6 pg (25.0-35.0); MCHC 31.7 g/dL (31.0-37.0); MCV 96.7 fL (80.0-100.0); Macrocytosis Slight; Mean Platelet Volume 8.1; Monocytes # (A) 0.4 k/uL (0-1.0); Monocytes % (A) 6 %; Neutrophils # (A) 5.5 k/uL (1.3-7.7); Neutrophils % (A) 80 %; Platelet Count 151 k/uL (150-450); RBC 3.77 m/uL (4.30-5.90); WBC 6.9 k/uL (3.8-10.6)
[2020-08-14 17:45] LABS: INR 1.4 (<1.2); Partial Thromboplastin Time 34.5 sec (22.0-30.0); Prothrombin Time 13.5 sec (9.0-12.0)
[2020-08-14] MEDS ORDERED: DIPH,PERTUS(ACELL)TETVAC-LF 0.5 ML VIAL IM ONE (18:02)
--- NOTE | 2020-08-14 18:02 | ED ---
General Adult HPI - General Chief complaint: Fall Stated complaint: Fall/weakness Time Seen by Provider: 08/14/20 16:15 Source: EMS Mode of arrival: EMS Limitations: no limitations - History of Present Illness Initial comments: 80-year-old male patient with past history significant for afib, heart failure, GERD, [place], EtOH abuse presents to the emergency department today for evaluation of weakness with a fall. Patient states that he was walking back from the bathroom when his legs started to shake and become weak causing him to fall. He denies hitting his head, losing consciousness, or sustaining any injury. His family wanted him transported due to increasing weakness, decreased appetite, and frequent falls. Patient does admit to drinking several vodkas daily. He denies any recent head injury, but does take xarelto. He denies any fever or chills. Denies chest pain or shortness of breath. Denies unilateral weakness, numbness, or tingling. Patient denies any recent rash, cough, abdominal pain, nausea, vomiting, diarrhea, constipation, back pain, hematuria, dysuria, urinary urgency, urinary frequency, or any other complaints. - Related Data Home Medications Medication Instructions Recorded Confirmed Cholecalciferol (Vitamin D3) 2,000 unit PO HS 02/13/19 02/21/20 [Vitamin D3] Cyanocobalamin (Vitamin B-12) 1,000 mcg PO DAILY 02/13/19 02/21/20 [Vitamin B-12] Furosemide [Lasix] 20 mg PO DAILY 02/13/19 02/21/20 Metoprolol Tartrate [Lopressor] 50 mg PO BID 02/13/19 02/21/20 Potassium Chloride [Klor-Con 20] 20 meq PO BID 02/13/19 02/21/20 Rivaroxaban [Xarelto] 20 mg PO DAILY 02/13/19 02/21/20 Tamsulosin [Flomax] 0.4 mg PO DAILY 02/13/19 02/21/20 Ketotifen 0.025% Ophth Soln 1 drops LEFT EYE BID PRN 04/01/19 02/21/20 [Zaditor] Magnesium 500 mg PO HS 04/01/19 02/21/20 Thiamine [Vitamin B-1] 100 mg PO DAILY 04/01/19 02/21/20 Previous Rx's Medication Instructions Recorded Escitalopram [Lexapro] 5 mg PO DAILY 02/17/19 Loratadine [Claritin] 10 mg PO DAILY #30 tab 03/14/19 Multivitamins, Thera [Multivitamin 1 tab PO DAILY #30 tablet 03/14/19 (formulary)] Acetaminophen Tab [Tylenol] 650 mg PO Q6HR PRN tab 02/25/20 Amiodarone [Cordarone] 200 mg PO BID tab 02/25/20 Atorvastatin [Lipitor] 20 mg PO DAILY tab 02/25/20 Folic Acid 1 mg PO DAILY #30 tablet 02/25/20 Pantoprazole Sodium [Protonix] 40 mg PO DAILY #1 tablet. 02/25/20 allopurinoL [Zyloprim] 100 mg PO DAILY tab 02/25/20 lisinopriL [Zestril] 5 mg PO DAILY tab 02/25/20 Allergies Allergy/AdvReac Type Severity Reaction Status Date / Time bee venom protein (honey bee) Allergy Anaphylaxis Verified 08/14/20 16:12 Review of Systems ROS Statement: Those systems with pertinent positive or pertinent negative responses have been documented in the HPI. ROS Other: All systems not noted in ROS Statement are negative. Past Medical History Past Medical History: Atrial Fibrillation, Heart Failure, GERD/Reflux, GI Bleed, Hyperlipidemia, Myocardial Infarction ([place]), Pneumonia, Prostate Disorder Additional Past Medical History / Comment(s): Afib, AICD.,Hx of ETOH abuse, Hx C-diff (2014)., iron anemia, BPH., gout, Hx of falls- uses walker with wheels., Pneumonia (January 2019), Hospital Adm 03/10/19 for nasal bleeding- received transfusions., Hx of blood clot in left arm., scab left arm., Daughter- Brie lives with pt., Phimosis & Urine retention-Indwelling garcia catheter Placed by James Millard 03/30/19., Last Myocardial Infarction Date:: 2010 History of Any Multi-Drug Resistant Organisms: None Reported Date of last positivie culture/infection: 2014 MDRO Source:: stool Past Surgical History: AICD, Cardiac Ablation, Pacemaker Additional Past Surgical History / Comment(s): Bilateral cataract removals/lens implants., [employer] DUAL CHAMBER AICD/PACEMAKER REPLACED 03/27/2017. Past Anesthesia/Blood Transfusion Reactions: No Reported Reaction Additional Past Anesthesia/Blood Transfusion Reaction / Comment(s): RECENT BLOOD TRANSFUSIONS AT [facility].-DENIES REACTION Type of Cardiac Device: AICD Device Placement Date:: 03/27/2017 Past Psychological History: Depression Smoking Status: Former smoker Past Alcohol Use History: Daily, Heavy Past Drug Use History: None Reported - Past Family History Mother Family Medical History: CVA/TIA, Diabetes Mellitus Additional Family Medical History / Comment(s): Mother had "severe" diabetes and a CVA. Father Family Medical History: CVA/TIA, GI Bleed Additional Family Medical History / Comment(s): Father had a CVA General Exam Limitations: no limitations General appearance: alert, in no apparent distress, other (Physical well- developed, well-nourished adult male patient in no acute distress. Vital signs upon presentation are temperature 98.1F, pulse 61, respirations 18, blood pressure 125/77, pulse ox 91% on room air.) Head exam: Present: atraumatic, normocephalic, normal inspection Eye exam: Present: normal appearance, PERRL, EOMI. Absent: scleral icterus, conjunctival injection, nystagmus, periorbital swelling Respiratory exam: Present: normal lung sounds bilaterally. Absent: respiratory distress, wheezes, rales, rhonchi, stridor Cardiovascular Exam: Present: regular rate, normal rhythm, normal heart sounds. Absent: systolic murmur, diastolic murmur, rubs, gallop, clicks GI/Abdominal exam: Present: soft, normal bowel sounds. Absent: distended, tende rness, guarding, rebound, rigid Extremities exam: Present: full ROM, normal capillary refill, other (Left posterior elbow ecchymosis and abrasion noted. No bony tenderness. Full range of motion is intact. Skin is otherwise pink, warm, dry. Cap refills less than 3 seconds. Pedal and posttibial pulses are 2+ and equal bilaterally.). Absent: tenderness, pedal edema, joint swelling, calf tenderness Neurological exam: Present: alert, oriented X3, CN II-XII intact Psychiatric exam: Present: normal affect, normal mood Skin exam: Present: warm, dry, intact, normal color. Absent: rash Course Vital Signs 08/14/20 08/14/20 16:12 18:54 Temperature 98.1 F Pulse Rate 61 60 Respiratory 18 18 Rate Blood Pressure 125/77 149/86 O2 Sat by Pulse 91 L 91 L Oximetry Medical Decision Making - Medical Decision Making 80-year-old male patient presented to the emergency department today for evaluation of weakness and falls. He does admit to drinking alcohol daily basis. Labs reviewed and did reveal normal white blood cell count, lactic acidosis with a lactic acid 3.5. Mildly elevated potassium of 5.4, low sodium. He did have evidence for urinary tract infection we'll start Rocephin. He'll be admitted to the hospital for further evaluation and possible long-term care placement - Lab Data Result diagrams: 08/14/20 17:20 08/14/20 17:20 Lab Results 08/14/20 08/14/20 08/14/20 Range/Units 17: 17: 17:20 WBC 6.9 (3.8-10.6) k/uL RBC 3.77 L (4.30-5.90) m/uL Hgb 11.6 L (13.0-17.5) gm/dL Hct 36.5 L (39.0-53.0) % MCV 96.7 (80.0-100.0) fL MCH 30.6 (25.0-35.0) pg MCHC 31.7 (31.0-37.0) g/dL RDW 18.0 H (11.5-15.5) % Plt Count 151 (150-450) k/uL MPV 8.1 Neutrophils % 80 % Lymphocytes % 13 % Monocytes % 6 % Eosinophils % 0 % Basophils % 0 % Neutrophils # 5.5 (1.3-7.7) k/uL Lymphocytes # 0.9 L (1.0-4.8) k/uL Monocytes # 0.4 (0-1.0) k/uL Eosinophils # 0.0 (0-0.7) k/uL Basophils # 0.0 (0-0.2) k/uL Anisocytosis Slight Macrocytosis Slight PT 13.5 H (9.0-12.0) sec INR 1.4 H (<1.2) APTT 34.5 H (22.0-30.0) sec Sodium 127 L (137-145) mmol/L Potassium 5.3 H (3.5-5.1) mmol/L Chloride 93 L (98-107) mmol/L Carbon Dioxide 24 (22-30) mmol/L Anion Gap 10 mmol/L BUN 19 (9-20) mg/dL Creatinine 1.05 (0.66-1.25) mg/dL Est GFR (CKD-EPI)AfAm 77 (>60 ml/min/1.73 sqM) Est GFR (CKD-EPI)NonAf 67 (>60 ml/min/1.73 sqM) Glucose 109 H (74-99) mg/dL Plasma Lactic Acid Lemuel (0.7-2.0) mmol/L Calcium 8.6 (8.4-10.2) mg/dL Phosphorus 4.0 (2.5-4.5) mg/dL Magnesium 1.7 (1.6-2.3) mg/dL Total Bilirubin 0.6 (0.2-1.3) mg/dL AST 86 H (17-59) U/L ALT 54 H (4-49) U/L Alkaline Phosphatase 111 (38-126) U/L Troponin I (0.000-0.034) ng/mL Total Protein 7.1 (6.3-8.2) g/dL Albumin 3.8 (3.5-5.0) g/dL Urine Color Urine Appearance (Clear) Urine pH (5.0-8.0) Ur Specific [place] (1.001-1.035) Urine Protein (Negative) Urine Glucose (UA) (Negative) Urine Ketones (Negative) Urine Blood (Negative) Urine Nitrite (Negative) Urine Bilirubin (Negative) Urine Urobilinogen (<2.0) mg/dL Ur Leukocyte Esterase (Negative) Urine RBC (0-5) /hpf Urine WBC (0-5) /hpf Urine Bacteria (None) /hpf Hyaline Casts (0-2) /lpf Urine Mucus (None) /hpf 08/14/20 08/14/20 08/14/20 Range/Units 17:20 17:20 17:48 WBC (3.8-10.6) k/uL RBC (4.30-5.90) m/uL Hgb (13.0-17.5) gm/dL Hct (39.0-53.0) % MCV (80.0-100.0) fL MCH (25.0-35.0) pg MCHC (31.0-37.0) g/dL RDW (11.5-15.5) % Plt Count (150-450) k/uL MPV Neutrophils % % Lymphocytes % % Monocytes % % Eosinophils % % Basophils % % Neutrophils # (1.3-7.7) k/uL Lymphocytes # (1.0-4.8) k/uL Monocytes # (0-1.0) k/uL Eosinophils # (0-0.7) k/uL Basophils # (0-0.2) k/uL Anisocytosis Macrocytosis PT (9.0-12.0) sec INR (<1.2) APTT (22.0-30.0) sec Sodium (137-145) mmol/L Potassium (3.5-5.1) mmol/L Chloride (98-107) mmol/L Carbon Dioxide (22-30) mmol/L Anion Gap mmol/L BUN (9-20) mg/dL Creatinine (0.66-1.25) mg/dL Est GFR (CKD-EPI)AfAm (>60 ml/min/1.73 sqM) Est GFR (CKD-EPI)NonAf (>60 ml/min/1.73 sqM) Glucose (74-99) mg/dL Plasma Lactic Acid Lemuel 3.8 H* (0.7-2.0) mmol/L Calcium (8.4-10.2) mg/dL Phosphorus (2.5-4.5) mg/dL Magnesium (1.6-2.3) mg/dL Total Bilirubin (0.2-1.3) mg/dL AST (17-59) U/L ALT (4-49) U/L Alkaline Phosphatase (38-126) U/L Troponin I <0.012 (0.000-0.034) ng/mL Total Protein (6.3-8.2) g/dL Albumin (3.5-5.0) g/dL Urine Color Yellow Urine Appearance Clear (Clear) Urine pH 5.5 (5.0-8.0) Ur Specific [place] 1.012 (1.001-1.035) Urine Protein Trace H (Negative) Urine Glucose (UA) Negative (Negative) Urine Ketones Negative (Negative) Urine Blood Trace H (Negative) Urine Nitrite Positive (Negative) Urine Bilirubin Negative (Negative) Urine Urobilinogen <2.0 (<2.0) mg/dL Ur Leukocyte Esterase Large H (Negative) Urine RBC 1 (0-5) /hpf Urine WBC 33 H (0-5) /hpf Urine Bacteria Many H (None) /hpf Hyaline Casts 60 H (0-2) /lpf Urine Mucus Rare H (None) /hpf - Radiology Data Radiology results: report reviewed, image reviewed Two-view x-ray of the chest is obtained. Report is reviewed in its entirety. Impression by Dr. Mulligan shows left lower lobe infiltrate atelectasis similar to old exam. Congestion slightly increased no definite heart failure. CT brain cspine wo contrast shows cerebral atrophy. No cranial abnormality. No change compared to old exam. Cervical multilevel spondylotic changes. No fracture seen. No change. Disposition Clinical Impression: UTI (urinary tract infection), Weakness, Frequent falls Disposition: ADMITTED IP TO THIS [facility] Condition: Serious Referrals: Jazzmine Lopez DO [Primary Care Provider] - 1-2 days Decision to Admit Reason: Admit from EC Decision Date: 08/14/20 Decision Time: 19:30
[2020-08-14 18:09] LABS: Appearance,Urine Clear (Clear); Bacteria,Urine Many /hpf; Bilirubin,Urine Negative (Negative); Blood,Urine Trace (Negative); Color,Urine Yellow; Glucose,Urine (UA) Negative (Negative); Hyaline Casts,Urine 60 /lpf (0-2); Ketones,Urine Negative (Negative); Leukocyte Esterase,Urine Large (Negative); Mucus,Urine Rare /hpf; Nitrite,Urine Positive (Negative); PH, Urine 5.5 (5.0-8.0); Protein,Urine Trace (Negative); RBC,Urine 1 /hpf (0-5); Specific Gravity,Urine 1.012 (1.001-1.035); Urobilinogen,Urine <2.0 mg/dL (<2.0); WBC,Urine 33 /hpf (0-5)
[2020-08-14 18:13] LABS: Albumin 3.8 g/dL (3.5-5.0); Calcium 8.6 mg/dL (8.4-10.2); Magnesium 1.7 mg/dL (1.6-2.3); Potassium 5.3 mmol/L (3.5-5.1); Total Bilirubin 0.6 mg/dL (0.2-1.3); Total Protein 7.1 g/dL (6.3-8.2)
--- NOTE | 2020-08-14 18:40 | CT ---
EXAMINATION TYPE: CT brain cspine wo con DATE OF EXAM: 08/14/2020 COMPARISON: 02/13/2019 HISTORY: Fall and weakness. CT DLP: 1974.3 mGycm Automated exposure control for dose reduction was used. The cervical vertebra have normal alignment. There is degenerative disc space narrowing in the mid an d lower cervical spine. There is spurring of the endplates. Posterior elements are intact. There is m ultilevel hypertrophic cervical facet arthropathy. There is no evidence of cervical spine fracture. T here is normal aeration of the mastoid sinuses. The skull base is intact. There is cerebral cortical atrophy. There is no mass effect nor midline shift. There is no sign of in tracranial hemorrhage. Calvarium is intact. IMPRESSION: Cerebral atrophy. Cranial abnormality. No change compared to old exam. Cervical multilevel spondylotic changes. No fracture seen. No change.
--- NOTE | 2020-08-14 18:58 | XR ---
EXAMINATION TYPE: XR chest 2V DATE OF EXAM: 08/14/2020 COMPARISON: 02/21/2020 HISTORY: Dysrhythmia. Weakness. TECHNIQUE: FINDINGS: There is infiltrate and atelectasis left lower lobe. There is mild blunting of the costophr enic angles. Left axillary pacemaker. There is mild pulmonary congestion. Heart is slightly enlarged. Thoracic aorta is atheromatous. IMPRESSION: There is left lower lobe infiltrate and atelectasis similar to old exam. Pulmonary conges tion slightly increased but no definite heart failure.
[2020-08-14] MEDS ORDERED: NALOXONE 0.4 MG/ML 1 ML VIAL IV PRN (19:02)
[2020-08-14] MEDS ORDERED: THIAMINE 100 MG/ML 2 ML VIAL IM STA (19:07)
[2020-08-14] MEDS ORDERED: LORazepam 2 MG/ML INJ IV PRN ×2 (19:07)
[2020-08-14] MEDS ORDERED: SODIUM CHLORIDE 0.9% 1,000 ML with MVI, ADULT NO.4 WITH VIT K 10 ML, THIAMINE 100 MG, F... IV ONE ×4 (19:07)
[2020-08-15] MEDS ORDERED: FUROSEMIDE 10 MG/ML 4 ML VIAL IV STA (05:46)
[2020-08-15] MEDS ORDERED: ALBUTEROL HFA INHALER INHALATION PRN (05:49)
[2020-08-15 06:23] LABS: Glucose,Whole Blood 174 mg/dL (75-99)
--- NOTE | 2020-08-15 07:04 | P.EN ---
Code Blue Team Note Activated at 6:17 AM. The patient seen at the bedside shortly after. The RN reports that he was found to be frothing at the mouth and appeared to be purple and espinal without a palpable pulse. CPR was initiated though within 5-10 compressions, the patient appeared to be moving and breathing spontaneously. The patient appeared to be confused and tremulous on examination. The patient reported feeling "okay" and denied active pain or additional complaints. Vital signs at time of examination were 117/66, P 92, 97.8 T, 95% on 6L NC. Lung examination revealed clear lungs to auscultation bilaterally. Skin was dry throughout. No tongue bite irving were noted with urinary incontinence reported by the RN. Outstretched hand tremor and tongue fasciculations were noted. The patient was oriented only to self. Labs were ordered for the patient including ABG and electrolytes. The patient was also placed on aspiration, seizure, and fall precautions along with CIWA protocol for suspected seizure. Blood glucose was 174. Primary team notified by the RN. Telemetry monitoring was initiated.
[2020-08-15] MEDS: LORazepam 2 MG/ML INJ IV PRN (07:13)
[2020-08-15 07:22] LABS: ALT 56 U/L (4-49); AST 83 U/L (17-59); African American GFR (CKD) 81 (>60 ml/min/1.73 sqM); Albumin 4.1 g/dL (3.5-5.0); Albumin/Globulin Ratio 1.1; Alkaline Phosphatase 120 U/L (38-126); Anion Gap 11 mmol/L; Blood Urea Nitrogen 21 mg/dL (9-20); Calcium 8.5 mg/dL (8.4-10.2); Carbon Dioxide 28 mmol/L (22-30); Chloride 91 mmol/L (98-107); Globulin 3.7 g/dL; Glucose 148 mg/dL (74-99); Magnesium 1.6 mg/dL (1.6-2.3); Non-African American GFR(CKD) 70 (>60 ml/min/1.73 sqM); Sodium 130 mmol/L (137-145); Total Bilirubin 1.2 mg/dL (0.2-1.3); Total Protein 7.8 g/dL (6.3-8.2)
[2020-08-15 07:33] LABS: ABG Base Excess 0.9 mmol/L; ABG HCO3 26 mmol/L (21-25); ABG Oxygen Saturation 96.2 % (94-97); ABG PCO2 47 mmHg (35-45); ABG PH 7.36 (7.35-7.45); ABG PO2 92 mmHg (83-108); ABG TCO2 28 mmol/L (19-24); Allen Test Performed? Yes
--- NOTE | 2020-08-15 07:33 | XR ---
EXAMINATION TYPE: XR chest 1V portable DATE OF EXAM: 08/15/2020 HISTORY: Shortness of breath. COMPARISON: 08/14/2020 TECHNIQUE: Single view of the chest is submitted. FINDINGS: Demonstrated are scattered senescent parenchymal change. Patchy perihilar and basilar infiltrates persist unchanged. The heart is stable. Hilar and mediastinal structures are within normal limits. Degenerative changes are seen of the dorsal spine. IMPRESSION: 1. Patchy perihilar and basilar infiltrates persist unchanged.
[2020-08-15] MEDS: THIAMINE 100 MG TAB PO SCH ×2 (10:07→17:41)
[2020-08-15] MEDS ORDERED: IPRATROPIUM-ALBUTEROL 3 ML NEB INHALATION PRN (10:45)
--- NOTE | 2020-08-15 11:46 | P.HPIM ---
History of Present Illness 80-year-old male with a known alcohol abuse history was found on the floor. Patient says he is awake. Denied any syncopal episode he says he just too drunk. Patient today had episode of seizure activity. Initially [facility] was called and believed to have pulseless electrical activity it was actually seizure. Patient was given Ativan with improvement. Patient had a history of alcohol withdrawal seizures in the past. Patient does have multiple medical problems including COPD presently not smoking does have history of congestive heart failure EF of around 30-35% patient has a pacemaker and AICD in the past patient appears to be in heart failure clinically patient was receiving IV fluids because of his limited lactic acid , alcohol abuse and seizures. Patient is also on anti-coagulation with Xarelto. Patient denied any fever chills. Patient nausea vomiting.is also comparing of cough with sputum production he doesn't know the color of his chest x-ray showing bilateral infiltrates. It appears to be pulmonary edema. Patient does have elevated JVD I'll obtain a BNP on him. Patient is presently on 6 L of oxygen. Review of Systems REVIEW OF SYSTEMS: CONSTITUTIONAL: No fever, no malaise, no fatigue. HEENT: No recent visual problems or hearing problems. Denied any sore throat. CARDIOVASCULAR: No chest pain, orthopnea, PND, no palpitations, no syncope. PULMONARY: no hemoptysis. GASTROINTESTINAL: No diarrhea, no nausea, no vomiting, no abdominal pain. NEUROLOGICAL: No headaches, no weakness, no numbness. HEMATOLOGICAL: Denies any bleeding or petechiae. GENITOURINARY: Denies any burning micturition, frequency, or urgency. MUSCULOSKELETAL/RHEUMATOLOGICAL: Denies any joint pain, swelling, or any muscle pain. ENDOCRINE: Denies any polyuria or polydipsia. The rest of the 14-point review of systems is negative. Past Medical History Past Medical History: Atrial Fibrillation, Heart Failure, GERD/Reflux, GI Bleed, Hyperlipidemia, Myocardial Infarction ([place]), Pneumonia, Prostate Disorder Additional Past Medical History / Comment(s): Afib, AICD.,Hx of ETOH abuse, Hx C-diff (2014)., iron anemia, BPH., gout, Hx of falls- uses walker with wheels., Pneumonia (January 2019), Hospital Adm 03/10/19 for nasal bleeding- received transfusions., Hx of blood clot in left arm., scab left arm., Daughter- Brie lives with pt., Phimosis & Urine retention-Indwelling garcia catheter Placed by Dr Millard 03/30/19., Last Myocardial Infarction Date:: 2010 History of Any Multi-Drug Resistant Organisms: None Reported Date of last positivie culture/infection: 2014 MDRO Source:: stool Past Surgical History: AICD, Cardiac Ablation, Pacemaker Additional Past Surgical History / Comment(s): Bilateral cataract removals/lens implants., [employer] DUAL CHAMBER AICD/PACEMAKER REPLACED 03/27/2017. Past Anesthesia/Blood Transfusion Reactions: No Reported Reaction Additional Past Anesthesia/Blood Transfusion Reaction / Comment(s): RECENT BLOOD TRANSFUSIONS AT [facility].-DENIES REACTION Type of Cardiac Device: AICD Device Placement Date:: 03/27/2017 Past Psychological History: Depression Additional Psychological History / Comment(s): .. Smoking Status: Former smoker Past Alcohol Use History: Daily, Heavy Additional Past Alcohol Use History / Comment(s): Pt started smoking in 1953 and quit in 2010. Reports 10 vodka drinks per day. Past Drug Use History: None Reported - Past Family History Mother Family Medical History: CVA/TIA, Diabetes Mellitus Additional Family Medical History / Comment(s): Mother had "severe" diabetes and a CVA. Father Family Medical History: CVA/TIA, GI Bleed Additional Family Medical History / Comment(s): Father had a CVA Medications and Allergies Home Medications Medication Instructions Recorded Confirmed Type Cholecalciferol (Vitamin D3) 2,000 unit PO HS 02/13/19 08/14/20 History [Vitamin D3] Cyanocobalamin (Vitamin B-12) 1,000 mcg PO DAILY 02/13/19 08/14/20 History [Vitamin B-12] Furosemide [Lasix] 20 mg PO DAILY 02/13/19 08/14/20 History Metoprolol Tartrate [Lopressor] 50 mg PO BID 02/13/19 08/14/20 History Potassium Chloride [Klor-Con 20] 20 meq PO BID 02/13/19 08/14/20 History Rivaroxaban [Xarelto] 20 mg PO DAILY 02/13/19 08/14/20 History Tamsulosin [Flomax] 0.4 mg PO HS 02/13/19 08/14/20 History Loratadine [Claritin] 10 mg PO DAILY #30 tab 03/14/19 08/14/20 Rx Amiodarone [Cordarone] 200 mg PO BID tab 02/25/20 08/14/20 Rx Atorvastatin [Lipitor] 20 mg PO DAILY tab 02/25/20 08/14/20 Rx Escitalopram [Lexapro] 10 mg PO DAILY 08/14/20 08/14/20 History Magnesium Gluconate [Magonate] 500 mg PO HS 08/14/20 08/14/20 History allopurinoL [Zyloprim] 100 mg PO HS 08/14/20 08/14/20 History Allergies Allergy/AdvReac Type Severity Reaction Status Date / Time bee venom protein (honey bee) Allergy Anaphylaxis Verified 08/14/20 20:26 Physical Exam Vitals: Vital Signs Temp Pulse Pulse Resp BP BP Pulse Ox 08/15/20 08:00 66 18 08/15/20 07:59 98.0 F 66 18 146/80 100 08/15/20 01:55 98.6 F 74 16 151/80 93 L 08/14/20 21:58 98.1 F 66 18 164/75 93 L 08/14/20 20:00 98.2 F 64 18 141/84 92 L 08/14/20 18:54 60 18 149/86 91 L 08/14/20 16:12 98.1 F 61 18 125/77 91 L Intake and Output 08/14/20 08/15/20 08/15/20 22:59 06:59 14:59 Output Total 175 475 Balance -175 -475 Output: Urine 175 475 Other: # Voids 2 # Bowel Movements 1 Weight 90.718 kg PHYSICAL EXAMINATION: GENERAL: The patient is alert and oriented x3, not in any acute distress. Well developed, well nourished. HEENT: Pupils are round and equally reacting to light. EOMI. No scleral icterus. No conjunctival pallor. Normocephalic, atraumatic. No pharyngeal erythema. No thyromegaly. CARDIOVASCULAR: S1 and S2 present. No murmurs, rubs, or gallops. elevated JVD PULMONARY: independent extremity wheezing decreased air entry into bilateral lung camp ABDOMEN: Soft, nontender, nondistended, normoactive bowel sounds. No palpable organomegaly. MUSCULOSKELETAL: No joint swelling or deformity. EXTREMITIES: No cyanosis, clubbing, or pedal edema. NEUROLOGICAL: Gross neurological examination did not reveal any focal deficits. SKIN: No rashes. Results CBC & Chem 7: 08/14/20 17:20 08/15/20 06:51 Labs: Abnormal Lab Results - Last 24 Hours (Table) 08/14/20 08/14/20 08/14/20 Range/Units 17:20 17:20 17:20 RBC 3.77 L (4.30-5.90) m/uL Hgb 11.6 L (13.0-17.5) gm/dL Hct 36.5 L (39.0-53.0) % RDW 18.0 H (11.5-15.5) % Lymphocytes # 0.9 L (1.0-4.8) k/uL PT 13.5 H (9.0-12.0) sec INR 1.4 H (<1.2) APTT 34.5 H (22.0-30.0) sec ABG pCO2 (35-45) mmHg ABG HCO3 (21-25) mmol/L ABG Total CO2 (19-24) mmol/L Sodium 127 L (137-145) mmol/L Potassium 5.3 H (3.5-5.1) mmol/L Chloride 93 L (98-107) mmol/L BUN (9-20) mg/dL Glucose 109 H (74-99) mg/dL POC Glucose (mg/dL) (75-99) mg/dL Plasma Lactic Acid Lemuel (0.7-2.0) mmol/L AST 86 H (17-59) U/L ALT 54 H (4-49) U/L Urine Protein (Negative) Urine Blood (Negative) Ur Leukocyte Esterase (Negative) Urine WBC (0-5) /hpf Urine Bacteria (None) /hpf Hyaline Casts (0-2) /lpf Urine Mucus (None) /hpf 08/14/20 08/14/20 08/14/20 Range/Units 17:20 17:48 20:37 RBC (4.30-5.90) m/uL Hgb (13.0-17.5) gm/dL Hct (39.0-53.0) % RDW (11.5-15.5) % Lymphocytes # (1.0-4.8) k/uL PT (9.0-12.0) sec INR (<1.2) APTT (22.0-30.0) sec ABG pCO2 (35-45) mmHg ABG HCO3 (21-25) mmol/L ABG Total CO2 (19-24) mmol/L Sodium (137-145) mmol/L Potassium (3.5-5.1) mmol/L Chloride (98-107) mmol/L BUN (9-20) mg/dL Glucose (74-99) mg/dL POC Glucose (mg/dL) (75-99) mg/dL Plasma Lactic Acid Lemuel 3.8 H* 3.4 H* (0.7-2.0) mmol/L AST (17-59) U/L ALT (4-49) U/L Urine Protein Trace H (Negative) Urine Blood Trace H (Negative) Ur Leukocyte Esterase Large H (Negative) Urine WBC 33 H (0-5) /hpf Urine Bacteria Many H (None) /hpf Hyaline Casts 60 H (0-2) /lpf Urine Mucus Rare H (None) /hpf 08/15/20 08/15/20 08/15/20 Range/Units 06:21 06:51 07:25 RBC (4.30-5.90) m/uL Hgb (13.0-17.5) gm/dL Hct (39.0-53.0) % RDW (11.5-15.5) % Lymphocytes # (1.0-4.8) k/uL PT (9.0-12.0) sec INR (<1.2) APTT (22.0-30.0) sec ABG pCO2 47 H (35-45) mmHg ABG HCO3 26 H (21-25) mmol/L ABG Total CO2 28 H (19-24) mmol/L Sodium 130 L (137-145) mmol/L Potassium (3.5-5.1) mmol/L Chloride 91 L (98-107) mmol/L BUN 21 H (9-20) mg/dL Glucose 148 H (74-99) mg/dL POC Glucose (mg/dL) 174 H (75-99) mg/dL Plasma Lactic Acid Lemuel (0.7-2.0) mmol/L AST 83 H (17-59) U/L ALT 56 H (4-49) U/L Urine Protein (Negative) Urine Blood (Negative) Ur Leukocyte Esterase (Negative) Urine WBC (0-5) /hpf Urine Bacteria (None) /hpf Hyaline Casts (0-2) /lpf Urine Mucus (None) /hpf Microbiology - Last 24 Hours (Table) 08/14/20 17:48 Urine Culture - Preliminary Urine,Voided Thrombosis Risk Factor Assmnt - Choose All That Apply Any of the Below Risk Factors Present?: Yes Each Factor Represents 1 point: Sepsis (< 1month) Each Risk Factor Represents 3 Points: Age 75 years or older Thrombosis Risk Factor Assessment Total Risk Factor Score: 4 Thrombosis Risk Factor Assessment Level: Moderate Risk Assessment and Plan Plan: -fall: Secondary to alcohol use and alcohol intoxication. Patient drinks about half a liter of hard liquor every day. [facility] -Alcohol withdrawal seizure: During this hospitalization patient will be continued on all call withdrawal protocol. -Hyponatremiahypovolemic hyponatremia: Probably secondary to congestive heart failure obtain a BNP patient was started on the Lasix 40 mg IV twice a day repeat basic metabolic profile tomorrow -Acute hypoxic respiratory failure secondary to congestive heart failure exacerbation and there is a possibility of acute hypercapnic respiratory failure as well to continue to COPD exacerbation -Congestive heart failure chronic systolic dysfunction he of around 30-35% with acute exacerbation presently patient will be started on Lasix as mentioned above continue with his beta antoinette. -Atrial fibrillation: Presently rate controlled. patient will be continued on anticoagulation and beta antoinette. -COPD with acute exacerbation patient will be started on inhaled steroids inhalational treatments his wheezing doesn't improve patient may need oral steroids. Part of wheezing may be related to cardiac asthma -Asymptomatic bacteriuria no evidence of urinary tract infection patient on and off had some dysuria but this time he denied any such symptoms no fever no leukocytosis patient received 1 day of antibiotics even if he has urinary tract infection. Patient although will be started on oxygen for bronchitis. coronary artery disease -Benign prostatic hypertrophy -Depression-due to prophylaxis patient is already on anticoagulation.
[2020-08-15] MEDS: MAGNESIUM SULFATE-D5W PMX 1 GM in DEXTROSE/WATER 1 100ML.BAG IVPB SCH ×2 (12:35→14:51)
[2020-08-15] MEDS: DOXYCYCLINE 100 MG CAP PO SCH ×2 (12:35→21:32)
[2020-08-15] MEDS: FUROSEMIDE 10 MG/ML 4 ML VIAL IV SCH ×2 (12:35→21:33)
[2020-08-15] MEDS: IPRATROPIUM-ALBUTEROL 3 ML NEB INHALATION SCH ×3 (12:39→20:26)
[2020-08-15] MEDS: MAGNESIUM OXIDE 400 MG TAB PO SCH (17:41)
[2020-08-15] MEDS: BUDESONIDE 0.5 MG/2 ML NEBU INHALATION SCH (20:26)
[2020-08-15] MEDS: allopurinoL 100 MG TAB PO SCH (21:32)
[2020-08-15] MEDS: METOPROLOL TARTRATE 50 MG TAB PO SCH (21:32)
[2020-08-15] MEDS: AMIODARONE 200 MG TAB PO SCH (21:33)
[2020-08-16] MEDS: TAMSULOSIN 0.4 MG CAP.ER.24H PO SCH ×2 (07:05→21:12)
[2020-08-16] MEDS: FUROSEMIDE 10 MG/ML 4 ML VIAL IV SCH ×2 (07:40→21:13)
[2020-08-16] MEDS: AMIODARONE 200 MG TAB PO SCH (07:41)
[2020-08-16] MEDS: METOPROLOL TARTRATE 50 MG TAB PO SCH ×2 (07:41→21:12)
[2020-08-16] MEDS: THIAMINE 100 MG TAB PO SCH ×2 (07:41→16:31)
[2020-08-16] MEDS: ESCITALOPRAM 10 MG TAB PO SCH (07:41)
[2020-08-16] MEDS: ATORVASTATIN 20 MG TAB PO SCH (07:41)
[2020-08-16] MEDS: DOXYCYCLINE 100 MG CAP PO SCH ×2 (07:41→21:28)
[2020-08-16] MEDS ORDERED: RIVAROXABAN 20 MG TAB PO SCH (09:00)
[2020-08-16] MEDS: BUDESONIDE 0.5 MG/2 ML NEBU INHALATION SCH ×2 (09:19→19:16)
[2020-08-16] MEDS: IPRATROPIUM-ALBUTEROL 3 ML NEB INHALATION SCH ×4 (09:19→19:16)
[2020-08-16 12:01] LABS: African American GFR (CKD) 63 (>60 ml/min/1.73 sqM); Anion Gap 7 mmol/L; Blood Urea Nitrogen 25 mg/dL (9-20); Calcium 8.5 mg/dL (8.4-10.2); Carbon Dioxide 34 mmol/L (22-30); Chloride 91 mmol/L (98-107); Glucose 120 mg/dL (74-99); Non-African American GFR(CKD) 54 (>60 ml/min/1.73 sqM); Potassium 3.8 mmol/L (3.5-5.1); Sodium 132 mmol/L (137-145)
--- NOTE | 2020-08-16 13:15 | P.CRDCN ---
History of Present Illness History of present illness: HISTORY OF PRESENTING ILLNESS This is a pleasant 80-year-old male past medical history significant for chronic congestive heart failure, cardiomyopathy status post AICD, history of ventricular tachycardia, atrial fibrillation on long-term anticoagulation, daily heavy alcohol abuse, hypertension, dyslipidemia and former nicotine dependence. 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 We have been asked to see in consultation for should adjustments. The patient states yesterday he was drinking heavily and fell at home. He was then unable to get himself up due to weakness. His family members came home and found him on the floor. He denies loss of consciousness. On arrival his lactic acid was elevated at 3.8 prompting fluid administration. He received a bolus of 500 mL with maintenance fluid running at 100 miles per hour. Chest x-ray on admission revealed left lower lobe infiltrate and pulmonary congestion. Repeat this morning reveals ongoing perihilar and basilar infiltrates unchanged from previous day. This morning the nurse found the patient frothing at the mouth, espinal in color with no palpable pulse. CPR was initiated shortly thereafter he appeared to be moving and breathing spontaneously. He was not on telemetry at that time. His recent echocardiogram obtained January 2020 revealed impaired LV systolic function with ejection fraction 30-35%, mild TR and mild aortic valve sclerosis. He is seen and examined sitting up in bed with seizure pads in place. He states he does feel somewhat short of breath today. He does not recall the events that occurred this morning. DIAGNOSTICS EKG reveals ventricular paced. Laboratory reviewed, sodium 132, potassium 3.8, creatinine 1.25, magnesium 2.0, NT proBNP 8060, WBC 6.9, hemoglobin 11.6, platelets 151, lactic acid on admission 3. 8 repeat after hydration 1.8 and troponin negative 1. Current cardiac medications include Xarelto 20 mg daily, Lopressor 50 mg twice a day, Lasix 20 mg daily, atorvastatin 20 mg daily and amiodarone 200 mg twice a day. REVIEW OF SYSTEMS At the time of my exam: CONSTITUTIONAL: Denies fever or chills. CARDIOVASCULAR: Complains of shortness of breath. Denies chest pain, orthopnea, PND or palpitations. RESPIRATORY: Denies cough. GASTROINTESTINAL: Denies abdominal pain, diarrhea, constipation, nausea or vomiting. MUSCULOSKELETAL: Denies myalgias. NEUROLOGIC: Denies numbness, tingling or weakness. ENDOCRINE: Denies fatigue, weight change, polydipsia or polyurina. GENITOURINARY: Denies burning, hematuria or urgency with micturation. HEMATOLOGIC: Denies history of anemia or bleeding. PHYSICAL EXAMINATION Blood pressure 142/83 heart rate 71 afebrile and maintaining oxygen saturation on room air. CONSTITUTIONAL: No apparent distress. Appears disheveled. HEENT: Head is normocephalic. Pupils are equal, round. Sclerae anicteric. Mucous membranes of the mouth are moist. Milld JVD. No carotid bruit. CHEST EXAMINATION: Expiratory wheezes. No chest wall tenderness is noted on palpation or with deep breathing. HEART EXAMINATION: Irregular rate and rhythm. S1, S2 heard. No murmurs, gallops or rub. Distant heart sounds. ABDOMEN: Soft, nontender. Positive bowel sounds. EXTREMITIES: 2+ peripheral pulses, no lower extremity edema and no calf tender ness. NEUROLOGIC EXAMINATION: Patient is awake, alert and oriented x3. ASSESSMENT Fall Alcohol intoxication Generalized weakness Urinary tract infection Acute on chronic systolic heart failure, EF 30-35% in January 2020 History of ventricular tachycardia Paroxysmal atrial fibrillation on senior care anti-coagulation Hypertension Dyslipidemia PLAN Obtain repeat troponin. Obtain 2D echocardiogram and doppler study to assess cardiac structure and function. Initiate lisinopril 5 mg daily. Decrease amiodarone to 200 mg daily. Interrogate AICD. Continue IV diuresis. Document accurate intake and output along with daily weights. Follow renal function and electrolytes in the morning. Further recommendations to follow based on clinical course. Thank you kindly for this consultation. Nurse Practitioner note has been reviewed, I agree with a documented findings and plan of care. Patient was seen and examined. Past Medical History Past Medical History: Atrial Fibrillation, Heart Failure, GERD/Reflux, GI Bleed, Hyperlipidemia, Myocardial Infarction ([place]), Pneumonia, Prostate Disorder Additional Past Medical History / Comment(s): Afib, AICD.,Hx of ETOH abuse, Hx C-diff (2014)., iron anemia, BPH., gout, Hx of falls- uses walker with wheels., Pneumonia (January 2019), Hospital Adm 03/10/19 for nasal bleeding- received tra nsfusions., Hx of blood clot in left arm., scab left arm., Daughter- Brie lives with pt., Phimosis & Urine retention-Indwelling garcia catheter Placed by Dr Millard 03/30/19., Last Myocardial Infarction Date:: 2010 History of Any Multi-Drug Resistant Organisms: None Reported Date of last positivie culture/infection: 2014 MDRO Source:: stool Past Surgical History: AICD, Cardiac Ablation, Pacemaker Additional Past Surgical History / Comment(s): Bilateral cataract removals/lens implants., [employer] DUAL CHAMBER AICD/PACEMAKER REPLACED 03/27/2017. Past Anesthesia/Blood Transfusion Reactions: No Reported Reaction Additional Past Anesthesia/Blood Transfusion Reaction / Comment(s): RECENT BLOOD TRANSFUSIONS AT [facility]DENIES REACTION Type of Cardiac Device: AICD Device Placement Date:: 03/27/2017 Past Psychological History: Depression Additional Psychological History / Comment(s): .. Smoking Status: Former smoker Past Alcohol Use History: Daily, Heavy Additional Past Alcohol Use History / Comment(s): Pt started smoking in 1953 and quit in 2010. Reports 10 vodka drinks per day. Past Drug Use History: None Reported - Past Family History Mother Family Medical History: CVA/TIA, Diabetes Mellitus Additional Family Medical History / Comment(s): Mother had "severe" diabetes and a CVA. Father Family Medical History: CVA/TIA, GI Bleed Additional Family Medical History / Comment(s): Father had a CVA Medications and Allergies Home Medications Medication Instructions Recorded Confirmed Type Cholecalciferol (Vitamin D3) 2,000 unit PO HS 02/13/19 08/14/20 History [Vitamin D3] Cyanocobalamin (Vitamin B-12) 1,000 mcg PO DAILY 02/13/19 08/14/20 History [Vitamin B-12] Furosemide [Lasix] 20 mg PO DAILY 02/13/19 08/14/20 History Metoprolol Tartrate [Lopressor] 50 mg PO BID 02/13/19 08/14/20 History Potassium Chloride [Klor-Con 20] 20 meq PO BID 02/13/19 08/14/20 History Rivaroxaban [Xarelto] 20 mg PO DAILY 02/13/19 08/14/20 History Tamsulosin [Flomax] 0.4 mg PO HS 02/13/19 08/14/20 History Loratadine [Claritin] 10 mg PO DAILY #30 tab 03/14/19 08/14/20 Rx Amiodarone [Cordarone] 200 mg PO BID tab 02/25/20 08/14/20 Rx Atorvastatin [Lipitor] 20 mg PO DAILY tab 02/25/20 08/14/20 Rx Escitalopram [Lexapro] 10 mg PO DAILY 08/14/20 08/14/20 History Magnesium Gluconate [Magonate] 500 mg PO HS 08/14/20 08/14/20 History allopurinoL [Zyloprim] 100 mg PO HS 08/14/20 08/14/20 History Allergies Allergy/AdvReac Type Severity Reaction Status Date / Time bee venom protein (honey bee) Allergy Anaphylaxis Verified 08/14/20 20:26 Physical Exam Vitals: Vital Signs Temp Pulse Pulse Resp BP Pulse Ox 08/16/20 12:32 72 08/16/20 09:36 76 08/16/20 09:20 76 08/16/20 06:58 98.8 F 71 15 142/83 94 L 08/16/20 01:00 98.2 F 72 16 133/79 96 08/15/20 22:10 97.5 F L 68 16 142/74 96 08/15/20 20:38 70 16 08/15/20 20:26 72 16 08/15/20 16:34 70 08/15/20 16:23 72 08/15/20 15:54 20 08/15/20 14:00 98.0 F 67 151/83 95 08/15/20 12:50 65 Intake and Output 08/15/20 08/16/20 08/16/20 22:59 06:59 14:59 Intake Total 300 Output Total 300 100 75 Balance 0 -100 -75 Intake: Oral 300 Output: Urine 300 100 75 Other: Voiding Method Urinal Results 08/14/20 17:20 08/16/20 06:51 Comprehensive Metabolic Panel 08/16/20 Range/Units 06:51 Sodium 132 L (137-145) mmol/L Potassium 3.8 (3.5-5.1) mmol/L Chloride 91 L (98-107) mmol/L Carbon Dioxide 34 H (22-30) mmol/L BUN 25 H (9-20) mg/dL Creatinine 1.25 (0.66-1.25) mg/dL Glucose 120 H (74-99) mg/dL Calcium 8.5 (8.4-10.2) mg/dL Current Medications Generic Name Dose Route Start Last Admin Trade Name Freq PRN Reason Stop Dose Admin Albuterol/Ipratropium 3 ml 08/15/20 10:45 Ipratropium-Albuterol 3 Ml Neb INHALATION RT-QID PRN Shortness Of Breath Or Wheezing Albuterol/Ipratropium 3 ml 08/15/20 12:00 08/16/20 12:31 Ipratropium-Albuterol 3 Ml Neb INHALATION 3 ml RT-QID ROBERT Administration Allopurinol 100 mg 08/15/20 21:00 08/15/20 21:32 Allopurinol 100 Mg Tab PO 100 mg HS ROBERT Administration Amiodarone HCl 200 mg 08/17/20 09:00 Amiodarone 200 Mg Tab PO DAILY ROBERT Atorvastatin Calcium 20 mg 08/16/20 09:00 08/16/20 07:41 Atorvastatin 20 Mg Tab PO 20 mg DAILY ROBERT Administration Budesonide 0.5 mg 08/15/20 20:00 08/16/20 09:19 Budesonide 0.5 Mg/2 Ml Nebu INHALATION 0.5 mg RT-BID ROBERT Administration Doxycycline Monohydrate 100 mg 08/15/20 11:00 08/16/20 07:41 Doxycycline 100 Mg Cap PO 100 mg BID ROBERT Administration Escitalopram Oxalate 10 mg 08/16/20 09:00 08/16/20 07:41 Escitalopram 10 Mg Tab PO 10 mg DAILY ROBERT Administration Furosemide 40 mg 08/15/20 11:00 08/16/20 07:40 Furosemide 10 Mg/Ml 4 Ml Vial IV 40 mg Q12HR ROBERT Administration Lorazepam 1 mg 08/14/20 19:07 08/15/20 07:13 Lorazepam 2 Mg/Ml Inj IV 1 mg Q2HR PRN Administration CIWA 8 or 9 Lorazepam 1 mg 08/14/20 19:07 Lorazepam 2 Mg/Ml Inj IV Q1HR PRN CIWA 10 to 15 Lorazepam 2 mg 08/14/20 19:07 Lorazepam 2 Mg/Ml Inj IV 08/16/20 19:07 Q10M PRN CIWA 16 or higher Magnesium Oxide 400 mg 08/15/20 18:00 08/15/20 17:41 Magnesium Oxide 400 Mg Tab PO 400 mg DAILY@1800 ROBERT Administration Metoprolol Tartrate 50 mg 08/15/20 21:00 08/16/20 07:41 Metoprolol Tartrate 50 Mg Tab PO 50 mg BID ROBERT Administration Naloxone HCl 0.2 mg 08/14/20 19:02 Naloxone 0.4 Mg/Ml 1 Ml Vial IV Q2M PRN Opioid Reversal Rivaroxaban 20 mg 08/16/20 09:00 08/16/20 07:41 Rivaroxaban 20 Mg Tab PO 20 mg DAILY ROBERT Administration Tamsulosin HCl 0.4 mg 08/15/20 21:00 08/16/20 07:05 Tamsulosin 0.4 Mg Cap.Er.24h PO Not Given HS ROBERT Thiamine HCl 100 mg 08/15/20 07:30 08/16/20 07:41 Thiamine 100 Mg Tab PO 100 mg BID-W/MEALS ROBERT Administration Intake and Output 08/15/20 08/16/20 08/16/20 22:59 06:59 14:59 Intake Total 300 Output Total 300 100 75 Balance 0 -100 -75 Intake: Oral 300 Output: Urine 300 100 75 Other: Voiding Method Urinal 08/14/20 17:20 08/16/20 06:51
[2020-08-16] MEDS: lisinopriL 5 MG TAB PO SCH (13:21)
[2020-08-16] MEDS: MAGNESIUM OXIDE 400 MG TAB PO SCH (16:31)
--- NOTE | 2020-08-16 20:24 | P.PN ---
Subjective Progress Note Date: 08/16/20 Steven Hussein is an 80 yo M with PMH of cardiomyopathy, systolic CHF, AICD in place, history alcohol abuse who was brought to the ED after he passed out at home. He was apparently drinking alcohol and his family found him on the ground unable to get up so called EMS. 08/16: This morning per nursing staff pt was found to be frothing at the mouth with weak pulse, a code blue was called and pt did briefly receive CPR but quickly roused and began moving. Pt states he does not remember this happening and has not felt his AICD fire. He does admit to drinking before coming into the hospital. Currently he denies chest pain but endorses shortness of breath and orthopnea. Objective - Vital Signs Vital signs: Vital Signs Temp 99 F 08/16/20 14:00 Pulse 88 08/16/20 19:27 Resp 16 08/16/20 14:00 BP 107/68 08/16/20 14:00 Pulse Ox 94 L 08/16/20 14:00 Intake & Output 08/16/20 08/16/20 08/17/20 06:59 18:59 06:59 Output Total 100 75 Balance -100 -75 Weight 95 kg Output: Urine 100 75 Other: Voiding Method Urinal - Exam General: well nourished, obese, NAD. Vitals reviewed Lungs: normal respiratory effort, no rales. Minimal wheezin CV: Irregularly irregular, weak pulses Abdomen: soft, nondistended, no organomegaly Skin: warm and dry. - Labs CBC & Chem 7: 08/14/20 17:20 08/16/20 06:51 Labs: Abnormal Lab Results - Last 24 Hours (Table) 08/16/20 08/16/20 08/16/20 Range/Units 06:51 14:23 17:55 Sodium 132 L (137-145) mmol/L Chloride 91 L (98-107) mmol/L Carbon Dioxide 34 H (22-30) mmol/L BUN 25 H (9-20) mg/dL Glucose 120 H (74-99) mg/dL Troponin I 0.163 H* 0.142 H* (0.000-0.034) ng/mL Microbiology - Last 24 Hours (Table) 08/14/20 17:48 Urine Culture - Final Urine,Voided Klebsiella oxytoca Assessment and Plan (1) Acute on chronic systolic (congestive) heart failure Current Visit: Yes Status: Acute Code(s): I50.23 - ACUTE ON CHRONIC SYSTOLIC (CONGESTIVE) HEART FAILURE SNOMED Code(s): 689565282 (2) Cardiomyopathy Current Visit: Yes Status: Acute Code(s): I42.9 - CARDIOMYOPATHY, UNSPECIFIED SNOMED Code(s): 79433873 (3) Alcohol abuse Current Visit: Yes Status: Acute Code(s): F10.10 - ALCOHOL ABUSE, UNCOMPLICATED SNOMED Code(s): 23023374 (4) Frequent falls Current Visit: Yes Status: Acute Code(s): R29.6 - REPEATED FALLS SNOMED Code(s): 899348819 (5) Alcoholism Current Visit: No Status: Acute Code(s): F10.20 - ALCOHOL DEPENDENCE, UNCOMPLICATED SNOMED Code(s): 8350250 (6) Atrial fibrillation Current Visit: No Status: Acute Code(s): I48.91 - UNSPECIFIED ATRIAL FIBRILLATION SNOMED Code(s): 16984779 Plan: Consult Cardiology, continue with IV lasix and stop IV fluids. Strict I/Os. Continue doxycycline to empirically cover for aspiration. CIWA protocol. Alcohol cessation counseling
[2020-08-16] MEDS: allopurinoL 100 MG TAB PO SCH (21:12)
[2020-08-16] MEDS: LORazepam 2 MG/ML INJ IV PRN (21:14)
[2020-08-17] MEDS: IPRATROPIUM-ALBUTEROL 3 ML NEB INHALATION SCH ×4 (07:06→20:00)
[2020-08-17] MEDS: BUDESONIDE 0.5 MG/2 ML NEBU INHALATION SCH ×2 (07:06→20:00)
[2020-08-17] MEDS: METOPROLOL TARTRATE 50 MG TAB PO SCH ×2 (08:54→21:32)
[2020-08-17] MEDS: THIAMINE 100 MG TAB PO SCH ×2 (08:54→16:28)
[2020-08-17] MEDS: ESCITALOPRAM 10 MG TAB PO SCH (08:54)
[2020-08-17] MEDS: lisinopriL 5 MG TAB PO SCH (08:54)
[2020-08-17] MEDS: ATORVASTATIN 20 MG TAB PO SCH (08:54)
[2020-08-17] MEDS: AMIODARONE 200 MG TAB PO SCH (08:54)
[2020-08-17] MEDS: DOXYCYCLINE 100 MG CAP PO SCH ×2 (08:55→21:33)
[2020-08-17] MEDS: RIVAROXABAN 15 MG TAB PO SCH (08:55)
[2020-08-17] MEDS: FUROSEMIDE 10 MG/ML 4 ML VIAL IV SCH (08:55)
--- NOTE | 2020-08-17 10:00 | ECHOF ---
Referral Reason:hf exacerbation MEASUREMENTS -------- HEIGHT: 172.7 cm WEIGHT: 90.7 kg BP: RVIDd: 4.5 cm (< 3.3) IVSd: 1.6 cm (0.6 - 1.1) LVIDd: 3.7 cm (3.9 - 5.3) LVPWd: 1.5 cm (0.6 - 1.1) IVSs: 2.3 cm LVIDs: 3.0 cm LVPWs: 1.8 cm LAESV Index (A-L): 54.95 ml/m Ao Diam: 4.5 cm (2.0 - 3.7) AV Cusp: 1.8 cm (1.5 - 2.6) RAP: 20.00 mmHg RVSP: 65.28 mmHg FINDINGS -------- Atrial fibrillation. This was a technically difficult study with suboptimal views. The left ventricular size is normal. There is moderate concentric left ventricular hypertrophy. O verall left ventricular systolic function is moderate-severely impaired with, an EF between 30 - 35 % . Apical anterior LV wall motion is hypokinetic. Apical lateral LV wall motion is hypokinetic. Apical inferior LV wall motion is hypokinetic. Apical septum LV wall motion is hypokinetic. The right ventricle is severely enlarged. LA is severely dilated >40 ml/m2 The right atrium was not well visualized. Electronic pacemaker lead seen in the right atrial cavity . 5.0mg of Lumason was utilized for enhancement of images Interatrial and interventricular septum intact. There is no evidence of aortic regurgitation. There is mild aortic stenosis present. Moderate mitral regurgitation is present. Moderate to severe tricuspid regurgitation present. There is severe pulmonary hypertension. The r ight ventricular systolic pressure, as measured by Doppler, is 65.28mmHg. There is no pulmonic regurgitation present. The aortic root size is normal. The inferior vena cava is dilated with poor inspiratory collapse which is consistent with estimated r ight atrial pressure of 20 mmHg. There is no pericardial effusion. CONCLUSIONS -------- 1. The left ventricular size is normal. 2. There is moderate concentric left ventricular hypertrophy. 3. Overall left ventricular systolic function is moderate-severely impaired with, an EF between 30 - 35 %. 4. Apical anterior LV wall motion is hypokinetic. 5. Apical lateral LV wall motion is hypokinetic. 6. Apical inferior LV wall motion is hypokinetic. 7. Apical septum LV wall motion is hypokinetic. 8. The right ventricle is severely enlarged. 9. LA is severely dilated >40 ml/m2 10. There is mild aortic stenosis present. 11. Moderate mitral regurgitation is present. 12. Moderate to severe tricuspid regurgitation present. 13. There is severe pulmonary hypertension. 14. The right ventricular systolic pressure, as measured by Doppler, is 65.28mmHg. 15. The inferior vena cava is dilated with poor inspiratory collapse which is consistent with estimat ed right atrial pressure of 20 mmHg. 16. There is no pericardial effusion. STANDARDS ENGINEER: Imani Beal RDCS
[2020-08-17 10:23] LABS: African American GFR (CKD) 59.3 (60.0-200.0); Anion Gap 16.3 mmol/L (4.00-12.00); BUN/Creat Ratio 22.31 Ratio (12.00-20.00); Calcium 8.7 mg/dL (8.7-10.3); Carbon Dioxide 34.7 mmol/L (21.6-31.8); Non-African American GFR(CKD) 51.2 (60.0-200.0); Potassium 3.2 mmol/L (3.5-5.5)
--- NOTE | 2020-08-17 10:35 | P.PN ---
Subjective HISTORY OF PRESENTING ILLNESS This is a pleasant 80-year-old male past medical history significant for chronic congestive heart failure, cardiomyopathy status post AICD, history of ventricular tachycardia, atrial fibrillation on long-term anticoagulation, daily heavy alcohol abuse, hypertension, dyslipidemia and former nicotine dependence. 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 He is seen and examined sitting up in bed in no acute distress. He complains of soreness in his anterior chest wall likely secondary to CPR. He denies worsening shortness of breath. He has no dizziness or palpitations. Pacemaker interr ogation revealed he is in underlying atrial fibrillation 100% of the time. He has had no events since previous interrogation. Echocardiogram obtained revealed impaired LV systolic function with ejection fraction 30-35%, apical anterior, apical lateral, apical inferior, apical septal LV wall motion hypokinesia, mild aortic stenosis, moderate mitral regurgitation, moderate to severe tricuspid regurgitation and severe pulmonary hypertension with an RVSP of 65 mmHg. Laboratory data reviewed, sodium 136, potassium 3.2, creatinine 1.3, troponin 0.163 and 0.142. PHYSICAL EXAMINATION CONSTITUTIONAL: No apparent distress. Appears disheveled. HEENT: Head is normocephalic. Pupils are equal, round. Sclerae anicteric. Mucous membranes of the mouth are moist. Milld JVD. No carotid bruit. CHEST EXAMINATION: Clear to auscultation. Mild anterior chest wall tenderness is noted on palpation. HEART EXAMINATION: Irregular rate and rhythm. S1, S2 heard. No murmurs, gallops or rub. Distant heart sounds. EXTREMITIES: 2+ peripheral pulses, no lower extremity edema and no calf tenderness. ASSESSMENT Fall Alcohol intoxication Generalized weakness Urinary tract infection Acute on chronic systolic heart failure, EF 30-35% in January 2020 History of ventricular tachycardia Paroxysmal atrial fibrillation on usp anti-coagulation Hypertension Dyslipidemia Pulmonary hypertension, severe PLAN Transition to oral diuretics today. Replace potassium per protocol. Complete alcohol cessation recommended. Troponin elevation secondary to CPR. No change in LV function. No significant arrhythmia's noted on telemetry. Nurse Practitioner note has been reviewed, I agree with a documented findings and plan of care. Patient was seen and examined. Objective - Vital Signs Vital signs: Vital Signs Temp 98.3 F 08/17/20 08:00 Pulse 61 08/17/20 08:00 Resp 18 08/17/20 08:00 BP 147/70 08/17/20 08:00 Pulse Ox 94 L 08/17/20 08:00 Intake & Output 08/16/20 08/17/20 08/17/20 18:59 06:59 18:59 Output Total 75 100 Balance -75 -100 Weight 95 kg Output: Urine 75 100 Other: Voiding Method Urinal Bedpan Urinal # Voids 1 # Bowel Movements 2 1 - Labs CBC & Chem 7: 08/14/20 17:20 08/16/20 06:51 Labs: Abnormal Lab Results - Last 24 Hours (Table) 08/16/20 08/16/20 08/16/20 Range/Units 06:51 14:23 17:55 Sodium 132 L (137-145) mmol/L Chloride 91 L (98-107) mmol/L Carbon Dioxide 34 H (22-30) mmol/L BUN 25 H (9-20) mg/dL Glucose 120 H (74-99) mg/dL Troponin I 0.163 H* 0.142 H* (0.000-0.034) ng/mL Microbiology - Last 24 Hours (Table) 08/14/20 17:48 Urine Culture - Final Urine,Voided Klebsiella oxytoca
[2020-08-17] MEDS: POTASSIUM CHLORIDE ER 20 MEQ TAB.ER PO SCH ×2 (11:59→13:11)
[2020-08-17] MEDS: FUROSEMIDE 40 MG TAB PO SCH (16:28)
[2020-08-17] MEDS: MAGNESIUM OXIDE 400 MG TAB PO SCH (16:28)
[2020-08-17] MEDS: ACETAMINOPHEN TAB 325 MG TAB PO PRN (18:32)
--- NOTE | 2020-08-17 20:41 | P.PN ---
Subjective Progress Note Date: 08/17/20 Steven Hussein is an 80 yo M with PMH of cardiomyopathy, systolic CHF, AICD in place, history alcohol abuse who was brought to the ED after he passed out at home. He was apparently drinking alcohol and his family found him on the ground unable to get up so called EMS. 08/16: This morning per nursing staff pt was found to be frothing at the mouth with weak pulse, a code blue was called and pt did briefly receive CPR but quickly roused and began moving. Pt states he does not remember this happening and has not felt his AICD fire. He does admit to drinking before coming into the hospital. Currently he denies chest pain but endorses shortness of breath and orthopnea. 08/17: Pt feeling better today but still with some anterior chest tenderness. He denies shortness of breath at rest. His AICD was interrogated by cardiology and shows A fib without ventricular arrhythmia. He continues on CIWA protocol, denies tremor or diaphoresis Objective - Vital Signs Vital signs: Vital Signs Temp 97.9 F 08/17/20 19:19 Pulse 72 08/17/20 20:20 Resp 18 08/17/20 19:19 BP 113/66 08/17/20 19:19 Pulse Ox 95 08/17/20 20:00 Intake & Output 08/17/20 08/17/20 08/18/20 06:59 18:59 06:59 Intake Total 240 Output Total 100 550 Balance -100 -310 Weight 94 kg Intake: Oral 240 Output: Urine 100 550 Other: Voiding Method Bedpan Bedpan Urinal Urinal # Voids 1 # Bowel Movements 2 1 - Exam General: well nourished, obese, NAD. Vitals reviewed Lungs: normal respiratory effort, no rales. Minimal wheezin CV: Irregularly irregular, weak pulses Abdomen: soft, nondistended, no organomegaly Skin: warm and dry. - Labs CBC & Chem 7: 08/14/20 17:20 08/17/20 06:05 Labs: Abnormal Lab Results - Last 24 Hours (Table) 08/17/20 Range/Units 06:05 Potassium 3.2 L (3.5-5.5) mmol/L Chloride 85 L (96-109) mmol/L Carbon Dioxide 34.7 H (21.6-31.8) mmol/L Anion Gap 16.30 H (4.00-12.00) mmol/L BUN 29.0 H (9.0-27.0) mg/dL Est GFR (CKD-EPI)AfAm 59.3 L (60.0-200.0) Est GFR (CKD-EPI)NonAf 51.2 L (60.0-200.0) BUN/Creatinine Ratio 22.31 H (12.00-20.00) Ratio Glucose 113 H (70-110) mg/dL Microbiology - Last 24 Hours (Table) 08/14/20 17:48 Urine Culture - Final Urine,Voided Klebsiella oxytoca Assessment and Plan (1) Acute on chronic systolic (congestive) heart failure Current Visit: Yes Status: Acute Code(s): I50.23 - ACUTE ON CHRONIC SYSTOLIC (CONGESTIVE) HEART FAILURE SNOMED Code(s): 103568917 (2) Cardiomyopathy Current Visit: Yes Status: Acute Code(s): I42.9 - CARDIOMYOPATHY, UNSPECIFIED SNOMED Code(s): 46475763 (3) Alcohol abuse Current Visit: Yes Status: Acute Code(s): F10.10 - ALCOHOL ABUSE, UNCOMPLICATED SNOMED Code(s): 87233280 (4) Frequent falls Current Visit: Yes Status: Acute Code(s): R29.6 - REPEATED FALLS SNOMED Code(s): 921154163 (5) Alcoholism Current Visit: No Status: Acute Code(s): F10.20 - ALCOHOL DEPENDENCE, UNCOMPLICATED SNOMED Code(s): 1042154 (6) Atrial fibrillation Current Visit: No Status: Acute Code(s): I48.91 - UNSPECIFIED ATRIAL FIBRILLATION SNOMED Code(s): 70288078 Plan: Diuresing well, continue with lasix and switch to PO. Continue doxycycline to em pirically cover for aspiration. WA protocol. Alcohol cessation counseling
[2020-08-17] MEDS: allopurinoL 100 MG TAB PO SCH (21:32)
[2020-08-17] MEDS: TAMSULOSIN 0.4 MG CAP.ER.24H PO SCH (21:32)
[2020-08-18] MEDS: FUROSEMIDE 40 MG TAB PO SCH ×2 (07:15→15:37)
[2020-08-18] MEDS: AMIODARONE 200 MG TAB PO SCH (07:15)
[2020-08-18] MEDS: ATORVASTATIN 20 MG TAB PO SCH (07:15)
[2020-08-18] MEDS: ESCITALOPRAM 10 MG TAB PO SCH (07:16)
[2020-08-18] MEDS: RIVAROXABAN 15 MG TAB PO SCH (07:16)
[2020-08-18] MEDS: DOXYCYCLINE 100 MG CAP PO SCH ×2 (07:16→19:37)
[2020-08-18] MEDS: METOPROLOL TARTRATE 50 MG TAB PO SCH ×2 (07:20→19:37)
[2020-08-18] MEDS: IPRATROPIUM-ALBUTEROL 3 ML NEB INHALATION SCH ×4 (07:20→21:47)
[2020-08-18] MEDS: BUDESONIDE 0.5 MG/2 ML NEBU INHALATION SCH ×2 (07:20→21:47)
[2020-08-18] MEDS: lisinopriL 5 MG TAB PO SCH (07:20)
[2020-08-18] MEDS: THIAMINE 100 MG TAB PO SCH ×2 (07:23→17:22)
--- NOTE | 2020-08-18 11:30 | PN ---
PROGRESS NOTE An 80-year-old gentleman with history of alcoholism, came in with what seems to be ventricular fibrillation in the setting of hypokalemia and also poor LV function. The patient has somewhat been noncompliant with advice. Yesterday, his potassium was low. He received some supplements. This morning he does not wish to be placed. He wants to go home with his daughter. No chest pain. Diminished functional capacity. He does not have any major complaints. Vitals are stable. JVD 1 cm. No carotid bruit. S1, S2 heard normally, short systolic murmur noted. Lungs reveal diminished air entry. Abdomen is soft. Lower extremities reveal diminished pulses. Central nervous system no gross focal deficits but there is generalized weakness. The patient's echocardiogram revealed an ejection fraction of 35% with wall motion abnormalities. I am recommending that we continue his current medical regimen obtain CBC and BMP today and also correct electrolytes if abnormal. Upon discharge, I would recommend that he follows up with Dr. Reynolds in 2 weeks. Prognosis remains quite poor for this gentleman given his overall condition. MMODL / IJN: [id number] /
[2020-08-18 11:36] LABS: Anisocytosis Slight; Basophils % (A) 1 %; Eosinophils % (A) 1 %; HCT 35.8 % (39.0-53.0); HGB 11.4 gm/dL (13.0-17.5); Hypochromasia Moderate; Lymphocytes # (A) 0.7 k/uL (1.0-4.8); Lymphocytes % (A) 14 %; MCH 32.6 pg (25.0-35.0); MCHC 31.8 g/dL (31.0-37.0); Macrocytosis Moderate; Mean Platelet Volume 7.6; Monocytes # (A) 0.5 k/uL (0-1.0); Monocytes % (A) 11 %; Neutrophils # (A) 3.5 k/uL (1.3-7.7); Neutrophils % (A) 71 %; Platelet Count 139 k/uL (150-450); RDW 17.1 % (11.5-15.5); WBC 4.9 k/uL (3.8-10.6)
[2020-08-18 11:41] LABS: MCV 102.4 fL (80.0-100.0)
[2020-08-18 11:50] LABS: African American GFR (CKD) 68 (>60 ml/min/1.73 sqM); Anion Gap 4 mmol/L; Blood Urea Nitrogen 35 mg/dL (9-20); Calcium 8.6 mg/dL (8.4-10.2); Carbon Dioxide 38 mmol/L (22-30); Chloride 98 mmol/L (98-107); Glucose 79 mg/dL (74-99); Non-African American GFR(CKD) 59 (>60 ml/min/1.73 sqM); Potassium 3.9 mmol/L (3.5-5.1); Sodium 140 mmol/L (137-145)
[2020-08-18] MEDS: ACETAMINOPHEN TAB 325 MG TAB PO PRN (15:34)
[2020-08-18] MEDS: MAGNESIUM OXIDE 400 MG TAB PO SCH (17:24)
[2020-08-18] MEDS: allopurinoL 100 MG TAB PO SCH (19:37)
[2020-08-18] MEDS: TAMSULOSIN 0.4 MG CAP.ER.24H PO SCH (19:37)
--- NOTE | 2020-08-18 20:54 | P.PN ---
Subjective Progress Note Date: 08/18/20 Steven Hussein is an 80 yo M with PMH of cardiomyopathy, systolic CHF, AICD in place, history alcohol abuse who was brought to the ED after he passed out at home. He was apparently drinking alcohol and his family found him on the ground unable to get up so called EMS. 08/16: This morning per nursing staff pt was found to be frothing at the mouth with weak pulse, a code blue was called and pt did briefly receive CPR but quickly roused and began moving. Pt states he does not remember this happening and has not felt his AICD fire. He does admit to drinking before coming into the hospital. Currently he denies chest pain but endorses shortness of breath and orthopnea. 08/17: Pt feeling better today but still with some anterior chest tenderness. He denies shortness of breath at rest. His AICD was interrogated by cardiology and shows A fib without ventricular arrhythmia. He continues on CIWA protocol, denies tremor or diaphoresis 08/18: He is feeling well today, upright in chair and no chest pain or shortness of breath. He has not ambulated much and therapy is recommending subacute rehab. Objective - Vital Signs Vital signs: Vital Signs Temp 99.5 F 08/18/20 13:48 Pulse 62 08/18/20 20:00 Resp 18 08/18/20 20:00 BP 128/69 08/18/20 13:48 Pulse Ox 90 L 08/18/20 07:35 Intake & Output 08/18/20 08/18/20 08/19/20 06:59 18:59 06:59 Output Total 400 200 Balance -400 -200 Weight 97 kg Output: Urine 400 200 Other: Voiding Method Bedpan Bedpan Bedpan Urinal Urinal Urinal # Voids 1 # Bowel Movements 2 - Exam General: well nourished, obese, NAD. Vitals reviewed Lungs: normal respiratory effort, no rales. Minimal wheezin CV: Irregularly irregular, weak pulses Abdomen: soft, nondistended, no organomegaly Skin: warm and dry. - Labs CBC & Chem 7: 08/18/20 11:18 08/18/20 11:18 Labs: Abnormal Lab Results - Last 24 Hours (Table) 08/18/20 08/18/20 Range/Units 11:18 11:18 RBC 3.50 L (4.30-5.90) m/uL Hgb 11.4 L (13.0-17.5) gm/dL Hct 35.8 L (39.0-53.0) % MCV 102.4 H D (80.0-100.0) fL RDW 17.1 H (11.5-15.5) % Plt Count 139 L (150-450) k/uL Lymphocytes # 0.7 L (1.0-4.8) k/uL Carbon Dioxide 38 H (22-30) mmol/L BUN 35 H (9-20) mg/dL Assessment and Plan (1) Acute on chronic systolic (congestive) heart failure Current Visit: Yes Status: Acute Code(s): I50.23 - ACUTE ON CHRONIC SYSTOLIC (CONGESTIVE) HEART FAILURE SNOMED Code(s): 613437185 (2) Cardiomyopathy Current Visit: Yes Status: Acute Code(s): I42.9 - CARDIOMYOPATHY, UNSPECIFIED SNOMED Code(s): 52581719 (3) Alcohol abuse Current Visit: Yes Status: Acute Code(s): F10.10 - ALCOHOL ABUSE, UNCOMPLICATED SNOMED Code(s): 64846234 (4) Frequent falls Current Visit: Yes Status: Acute Code(s): R29.6 - REPEATED FALLS SNOMED Code(s): 716642124 (5) Alcoholism Current Visit: No Status: Acute Code(s): F10.20 - ALCOHOL DEPENDENCE, UNCOMPLICATED SNOMED Code(s): 2212463 (6) Atrial fibrillation Current Visit: No Status: Acute Code(s): I48.91 - UNSPECIFIED ATRIAL FIBRILLATION SNOMED Code(s): 36500905 Plan: Continue current medications and treatments, continue lasix and doxycycline. Discharge planning in progress anticipate subacute rehab tomorrow
[2020-08-19] MEDS: BUDESONIDE 0.5 MG/2 ML NEBU INHALATION SCH ×2 (07:36→21:17)
[2020-08-19] MEDS: IPRATROPIUM-ALBUTEROL 3 ML NEB INHALATION SCH ×4 (07:36→21:16)
[2020-08-19] MEDS: THIAMINE 100 MG TAB PO SCH ×2 (08:08→18:23)
[2020-08-19] MEDS: ATORVASTATIN 20 MG TAB PO SCH (08:09)
[2020-08-19] MEDS: DOXYCYCLINE 100 MG CAP PO SCH ×2 (08:09→21:51)
[2020-08-19] MEDS: AMIODARONE 200 MG TAB PO SCH (08:09)
[2020-08-19] MEDS: FUROSEMIDE 40 MG TAB PO SCH ×2 (08:09→15:31)
[2020-08-19] MEDS: lisinopriL 5 MG TAB PO SCH (08:09)
[2020-08-19] MEDS: ESCITALOPRAM 10 MG TAB PO SCH (08:09)
[2020-08-19] MEDS: METOPROLOL TARTRATE 50 MG TAB PO SCH ×2 (08:10→21:50)
[2020-08-19] MEDS: RIVAROXABAN 15 MG TAB PO SCH (08:10)
--- NOTE | 2020-08-19 11:43 | P.CN ---
Psychiatric Consult - . Consult date: 08/19/20 Consult:: IDENTIFYING DATA: This patient is a , retired, 80-year-old male who was admitted for syncope in the context of alcohol use. HISTORY OF PRESENT ILLNESS: The patient presented to the hospital on 08/15/2020 for evaluation of weakness and fall. Patient reports that he was drinking significant amount of alcohol and then he experienced business which led to him to have a fall. He reports that he was discovered by his son. Psychiatry has been consulted for evaluation of depression and alcohol use. Patient is currently denying any significant symptoms of depression. He is not reporting any hopelessness, helplessness, or suicidal or homicidal ideation, intention, and/or plan. He reports no prior attempts at suicide. He does report difficulty sleeping as well as low appetite, but attributes this to his heavy alcohol use. He has been prescribed Lexapro which she has been taking for the last 2-3 months by his primary care physician. He reported that prior to taking the Lexapro, he was experiencing significant crying episodes nonstop. He reported this to his PCP who started him on Lexapro and states that since then he has not had any crying episodes. In regards to other mood disorders, the patient is not reporting any significant history of dave or hypomania. He denies any racing thoughts, significant mood swings, or increased goal-directed behavior. The patient does not endorse any significant symptoms psychosis. He reports no auditory or visual hallucinations outside of alcohol use or withdrawal. He reports no paranoia or delusions. In terms of his alcohol use disorder, the patient reports drinking heavily ever since his 3 years ago. He reports drinking half a fifth to three quarters of a fifth of vodka every day. He does report tremors as withdrawal symptoms. He denies any withdrawal seizures. He reports that he had some visual hallucinations when he first came to the hospital stating that he saw some mice on the floor of his hospital room. The patient reports he quit tobacco 10 years ago. He denies any marijuana or illicit drug use. PAST PSYCHIATRIC HISTORY: Patient denies any significant mental health history. He reports that he was started on Lexapro to 3 months ago due to crying episodes. He denies any outpatient treatment with any psychiatrist or therapist. He has previously attended Alcoholics Anonymous many years ago but this was court ordered when he was living up [age]. He denies any inpatient psychiatric treatment. He denies any inpatient rehabilitation for alcohol use disorder other substance use disorders. PAST MEDICAL HISTORY: Atrial fibrillation, heart failure, GERD, GI bleed, hyperlipidemia, LA, pneumonia, prostate disorder. ALLERGIES: Bee venom protein CHEMICAL DEPENDENCY HISTORY: Patient drinks half a fifth to three quarters of a fifth of liquor per day. He denies any tobacco use, and reportedly quit in 2010. He reports no marijuana or illicit drug use. FAMILY PSYCHIATRIC/SUBSTANCE USE HISTORY: Denies SOCIAL HISTORY: Patient has 4 adult children, 2 boys and 2 girls. 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 He he is currently , after 60 years of marriage. His 3 years ago due to heart failure. He denies any history. He reports a 10th grade education. MENTAL STATUS EXAM: General Appearance: Patient appears to be stated age is alert, pleasant, and cooperative. Patient appears to be disheveled with an obese body habitus. Behavior: Patient is calmly lying in bed without any agitated behavior. Speech: Patient's speech is fluent and nonpressured. Mood/Affect: Patient reports their mood is "doing okay", affect is congruent and euthymic. Suicidality/Homicidality: Patient denies having any suicidal or homicidal ideation intent or plan. Perceptions: Patient denies any visual hallucinations and denies any auditory hallucinations Though content/process: There is no evidence of any delusional thought content and thought process is linear and goal-directed. Memory and concentration: AOX3, grossly intact for the purposes of this session. Can spell "WORLD" backwards Judgment and insight: Fair IMPRESSIONS: Alcohol use disorder Depressive disorder, unspecified PLAN: -At this time patient DOES NOT meet criteria for inpatient psychiatric admission. -Would recommend the following medication changes/additions: We will not make any medication changes. Continue Lexapro 10 mg by mouth daily. This provider discussed with the patient medication options for alcohol use disorder including naltrexone, acamprosate, and disulfiram. The patient is currently on interested to start any new medication at this time. -Recommend referral to outpatient therapy or substance use clinic. Provider discussed with the patient the possibility of inpatient rehabilitation for alcohol use disorder. He is not interested at this time. -Psychiatry will sign off at this point, please contact with any questions. 08/19/20 11:29
[2020-08-19 13:25] VITALS: BMI 32.5
[2020-08-19 15:13] LABS: Anisocytosis Slight; Basophils % (A) 1 %; Eosinophils % (A) 1 %; HCT 35.1 % (39.0-53.0); HGB 10.9 gm/dL (13.0-17.5); Hypochromasia Slight; Lymphocytes # (A) 0.8 k/uL (1.0-4.8); Lymphocytes % (A) 17 %; MCH 31.4 pg (25.0-35.0); MCHC 31.1 g/dL (31.0-37.0); MCV 100.9 fL (80.0-100.0); Macrocytosis Moderate; Mean Platelet Volume 7.6; Monocytes # (A) 0.6 k/uL (0-1.0); Monocytes % (A) 12 %; Neutrophils # (A) 3.3 k/uL (1.3-7.7); Neutrophils % (A) 68 %; Platelet Count 167 k/uL (150-450); RBC 3.48 m/uL (4.30-5.90); RDW 17.4 % (11.5-15.5); WBC 4.9 k/uL (3.8-10.6)
[2020-08-19 15:27] LABS: African American GFR (CKD) 76 (>60 ml/min/1.73 sqM); Anion Gap 3 mmol/L; Blood Urea Nitrogen 30 mg/dL (9-20); Calcium 8.6 mg/dL (8.4-10.2); Carbon Dioxide 40 mmol/L (22-30); Chloride 97 mmol/L (98-107); Glucose 93 mg/dL (74-99); Non-African American GFR(CKD) 65 (>60 ml/min/1.73 sqM); Potassium 3.6 mmol/L (3.5-5.1); Sodium 140 mmol/L (137-145)
[2020-08-19] MEDS: MAGNESIUM OXIDE 400 MG TAB PO SCH (18:23)
--- NOTE | 2020-08-19 18:53 | P.PN ---
Subjective This is a pleasant 80 years old male with past medical history of atrial fibrillation, heart failure, status post AICD gastroesophageal reflux disease, GI bleed, benign prostatic hypertrophy, history of alcohol abuse, gout, BPH, uses a walker at baseline. 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 Echocardiogram showing ejection fraction of 30-35% with wall hypokinesia and severely enlarged right ventricle with moderate mitral regurgitation, moderate to severe tricuspid regurgitation and severe pulmonary hypertension. Cardiology cleared the patient for discharge However patient today is still hypoxic with oxygen saturation of 88% on room air, and went up to 92% on 2 L. Patient states that he got winded very easily with exertion. Also patient has cough with phlegm but he does not look what color it is. Patient has loose bowel movement once a day. He states that he feels depressed but denies suicidal ideation since his about 3 years ago. Psychiatric evaluated the patient and recommended no further intervention. Patient also complains from very little burning on urination and sometimes associated with increased frequency. His also complaining of from right shoulder pain related to his fall Patient has abnormal UA on admission and his urine culture is growing Klebsiella sensitive to multiple antibiotic. Also chest x-ray was suspicion of pneumonia with patchy perihilar infiltrate Objective - Vital Signs Vital signs: Vital Signs Temp 98 F 08/19/20 08:09 Pulse 91 08/19/20 08:09 Resp 17 08/19/20 08:15 BP 142/83 08/19/20 08:09 Pulse Ox 92 L 08/19/20 08:15 Intake & Output 08/18/20 08/19/20 08/19/20 18:59 06:59 18:59 Output Total 200 600 Balance -200 -600 Weight 97 kg 97 kg Output: Urine 200 600 Other: Voiding Method Bedpan Bedpan Urinal Urinal # Voids 1 # Bowel Movements 1 - Exam GENERAL: The patient is alert and oriented x3, not in any acute distress. Well developed, well nourished. HEENT: Pupils are round and equally reacting to light. EOMI. No scleral icterus. No conjunctival pallor. Normocephalic, atraumatic. No pharyngeal erythema. No thyromegaly. CARDIOVASCULAR: S1 and S2 present. No murmurs, rubs, or gallops. -PULMONARY: Chest is clear to auscultation, scattered bilateral expiratory wheezing ABDOMEN: Soft, nontender, nondistended, normoactive bowel sounds. No palpable organomegaly. MUSCULOSKELETAL: No joint swelling or deformity. EXTREMITIES: No cyanosis, clubbing, or pedal edema. NEUROLOGICAL: Gross neurological examination did not reveal any focal deficits. SKIN: No rashes. no petechiae. - Labs CBC & Chem 7: 08/19/20 14:28 08/19/20 14:28 Assessment and Plan Assessment: -Acute urinary tract infection with Klebsiella, patient is a started on ceftriaxone -Possible pneumonia with exertional dyspnea.Chest x-rays pending. Continue with ceftriaxone and doxycycline -Paroxysmal atrial fibrillation, patient rate is controlled and he is on Zestri l. -COPD exacerbation, continue with inhaled steroids. We will add systemic steroids -Acute hypoxic respiratory failure secondary to COPD and pneumonia -Patient with prostatic hypertrophy DVT prophylaxis: Xarelto GI prophylaxis: Pepcid PT/OT: Recommended subacute rehab Prognosis is guarded
[2020-08-19] MEDS: TAMSULOSIN 0.4 MG CAP.ER.24H PO SCH (21:50)
[2020-08-19] MEDS: FAMOTIDINE 20 MG TAB PO SCH (21:50)
[2020-08-19] MEDS: methylPREDNISolone SOD SUCCI 40 MG/ML 1 ML VIAL IV SCH (21:51)
[2020-08-19] MEDS: allopurinoL 100 MG TAB PO SCH (21:51)
[2020-08-20] MEDS: AMIODARONE 200 MG TAB PO SCH (07:13)
[2020-08-20] MEDS: FUROSEMIDE 40 MG TAB PO SCH ×2 (07:13→15:16)
[2020-08-20] MEDS: ATORVASTATIN 20 MG TAB PO SCH (07:13)
[2020-08-20] MEDS: METOPROLOL TARTRATE 50 MG TAB PO SCH ×2 (07:13→20:54)
[2020-08-20] MEDS: lisinopriL 5 MG TAB PO SCH (07:14)
[2020-08-20] MEDS: methylPREDNISolone SOD SUCCI 40 MG/ML 1 ML VIAL IV SCH (07:14)
[2020-08-20] MEDS: RIVAROXABAN 15 MG TAB PO SCH (07:14)
[2020-08-20] MEDS: ESCITALOPRAM 10 MG TAB PO SCH (07:14)
[2020-08-20] MEDS: THIAMINE 100 MG TAB PO SCH ×2 (07:14→15:16)
[2020-08-20] MEDS: DOXYCYCLINE 100 MG CAP PO SCH ×2 (07:14→20:54)
[2020-08-20] MEDS: FAMOTIDINE 20 MG TAB PO SCH ×2 (07:14→20:54)
[2020-08-20] MEDS: BUDESONIDE 0.5 MG/2 ML NEBU INHALATION SCH ×2 (08:22→20:19)
[2020-08-20] MEDS: IPRATROPIUM-ALBUTEROL 3 ML NEB INHALATION SCH ×4 (08:22→20:19)
[2020-08-20] MEDS ORDERED: FUROSEMIDE 10 MG/ML 4 ML VIAL IV STA (13:00)
--- NOTE | 2020-08-20 13:04 | P.PN ---
Subjective This is a pleasant 80 years old male with past medical history of atrial fibrillation, heart failure, status post AICD gastroesophageal reflux disease, GI bleed, benign prostatic hypertrophy, history of alcohol abuse, gout, BPH, uses a walker at baseline. Presents with syncope secondary to alcohol drinking, electronic prepress technician evaluated the patient. Echocardiogram showing ejection fraction of 30-35% with wall hypokinesia and severely enlarged right ventricle with moderate mitral regurgitation, moderate to severe tricuspid regurgitation and severe pulmonary hypertension. Cardiology cleared the patient for discharge However patient today is still hypoxic with oxygen saturation of 88% on room air, and went up to 92% on 2 L. Patient states that he got winded very easily with exertion. Also patient has cough with phlegm but he does not look what color it is. Patient has loose bowel movement once a day. He states that he feels depressed but denies suicidal ideation since his about 3 years ago. Psychiatric evaluated the patient and recommended no further intervention. Patient also complains from very little burning on urination and sometimes associated with increased frequency. His also complaining of from right shoulder pain related to his fall Patient has abnormal UA on admission and his urine culture is growing Klebsiella sensitive to multiple antibiotic. Also chest x-ray was suspicion of pneumonia with patchy perihilar infiltrate 08/20/2020 Patient is fully awake and oriented, he is in mild respiratory distress, he states that he is a little more short of breath than yesterday and he agrees that he is not ready to go home.. His Vitas looks stable and he is saturating 96% on 2 L oxygen via nasal cannula. Labs with CBC and BMP are unremarkable. Pro-calcitonin is negative at 0.03 On exam he has decreased air entry on both lung camp with some basal crepitation. Most likely patient has COPD exacerbation, he says that he smoked for more than 50 years and he quit about 10 years ago and he has been told he has COPD before We gave him 1 extra dose of Lasix and increase his Solu-Medrol 60 mg every 8 hours. We will keep monitoring Objective - Vital Signs Vital signs: Vital Signs Temp 98.1 F 08/20/20 07:54 Pulse 80 08/20/20 11:33 Resp 18 08/20/20 07:54 BP 150/73 08/20/20 07:54 Pulse Ox 96 08/20/20 07:54 Intake & Output 08/19/20 08/20/2020 18:59 06:59 18:59 Output Total 300 Balance -300 Weight 97 kg Output: Urine 300 Other: Voiding Method Bedpan Bedpan Urinal Urinal # Voids 1 - Exam GENERAL: The patient is alert and oriented x3, not in any acute distress. Well developed, well nourished. HEENT: Pupils are round and equally reacting to light. EOMI. No scleral icterus. No conjunctival pallor. Normocephalic, atraumatic. No pharyngeal erythema. No thyromegaly. CARDIOVASCULAR: S1 and S2 present. No murmurs, rubs, or gallops. -PULMONARY: Chest is clear to auscultation, scattered bilateral expiratory whe ezing ABDOMEN: Soft, nontender, nondistended, normoactive bowel sounds. No palpable organomegaly. MUSCULOSKELETAL: No joint swelling or deformity. EXTREMITIES: No cyanosis, clubbing, or pedal edema. NEUROLOGICAL: Gross neurological examination did not reveal any focal deficits. SKIN: No rashes. no petechiae. - Labs CBC & Chem 7: 08/19/20 14:28 08/19/20 14:28 Labs: Abnormal Lab Results - Last 24 Hours (Table) 08/19/20 08/19/20 Range/Units 14:28 14:28 RBC 3.48 L (4.30-5.90) m/uL Hgb 10.9 L (13.0-17.5) gm/dL Hct 35.1 L (39.0-53.0) % MCV 100.9 H (80.0-100.0) fL RDW 17.4 H (11.5-15.5) % Lymphocytes # 0.8 L (1.0-4.8) k/uL Chloride 97 L (98-107) mmol/L Carbon Dioxide 40 H (22-30) mmol/L BUN 30 H (9-20) mg/dL Assessment and Plan Assessment: -Acute urinary tract infection with Klebsiella, patient is a started on ceftriaxone -Possible pneumonia with exertional dyspnea.Chest x-rays pending. Continue with ceftriaxone and doxycycline -Paroxysmal atrial fibrillation, patient rate is controlled and he is on Zestril. -COPD exacerbation, continue with inhaled steroids. We will add systemic steroids -Acute hypoxic respiratory failure secondary to COPD and pneumonia -Patient with prostatic hypertrophy DVT prophylaxis: Xarelto GI prophylaxis: Pepcid PT/OT: Recommended subacute rehab Prognosis is guarded
[2020-08-20] MEDS: methylPREDNISolone SOD SUCCI 125 MG/2 ML VIAL IV SCH ×2 (15:16→23:02)
[2020-08-20] MEDS: MAGNESIUM OXIDE 400 MG TAB PO SCH (15:16)
[2020-08-20] MEDS: TAMSULOSIN 0.4 MG CAP.ER.24H PO SCH (20:54)
[2020-08-20] MEDS: allopurinoL 100 MG TAB PO SCH (20:54)
--- NOTE | 2020-08-21 06:54 | XR ---
EXAM: XR Chest, 1 View CLINICAL HISTORY: ITS.REASON XR Reason: f/u TECHNIQUE: Frontal view of the chest. COMPARISON: 08/19/2020 IMPRESSION: Mildly Worsened right lung base opacity. Similar left-sided pleural effusion with overlying opacity. Unchanged heart size.
[2020-08-21] MEDS: FUROSEMIDE 40 MG TAB PO SCH ×2 (07:05→15:14)
[2020-08-21] MEDS: RIVAROXABAN 15 MG TAB PO SCH (07:06)
[2020-08-21] MEDS: THIAMINE 100 MG TAB PO SCH ×2 (07:06→15:14)
[2020-08-21] MEDS: methylPREDNISolone SOD SUCCI 125 MG/2 ML VIAL IV SCH (07:06)
[2020-08-21] MEDS: METOPROLOL TARTRATE 50 MG TAB PO SCH ×2 (07:06→20:39)
[2020-08-21] MEDS: FAMOTIDINE 20 MG TAB PO SCH ×2 (07:06→20:39)
[2020-08-21] MEDS: AMIODARONE 200 MG TAB PO SCH (07:06)
[2020-08-21] MEDS: ATORVASTATIN 20 MG TAB PO SCH (07:06)
[2020-08-21] MEDS: lisinopriL 5 MG TAB PO SCH (07:06)
[2020-08-21] MEDS: ESCITALOPRAM 10 MG TAB PO SCH (07:06)
[2020-08-21] MEDS: DOXYCYCLINE 100 MG CAP PO SCH ×2 (07:06→20:39)
[2020-08-21] MEDS: IPRATROPIUM-ALBUTEROL 3 ML NEB INHALATION SCH ×4 (08:51→19:43)
[2020-08-21] MEDS: BUDESONIDE 0.5 MG/2 ML NEBU INHALATION SCH ×2 (08:51→19:43)
--- NOTE | 2020-08-21 12:13 | P.PN ---
Subjective This is a pleasant 80 years old male with past medical history of atrial fibrillation, heart failure, status post AICD gastroesophageal reflux disease, GI bleed, benign prostatic hypertrophy, history of alcohol abuse, gout, BPH, uses a walker at baseline. Presents with syncope secondary to alcohol drinking, field servicer evaluated the patient. Echocardiogram showing ejection fraction of 30-35% with wall hypokinesia and severely enlarged right ventricle with moderate mitral regurgitation, moderate to severe tricuspid regurgitation and severe pulmonary hypertension. Cardiology cleared the patient for discharge However patient today is still hypoxic with oxygen saturation of 88% on room air, and went up to 92% on 2 L. Patient states that he got winded very easily with exertion. Also patient has cough with phlegm but he does not look what color it is. Patient has loose bowel movement once a day. He states that he feels depressed but denies suicidal ideation since his about 3 years ago. Psychiatric evaluated the patient and recommended no further intervention. Patient also complains from very little burning on urination and sometimes associated with increased frequency. His also complaining of from right shoulder pain related to his fall Patient has abnormal UA on admission and his urine culture is growing Klebsiella sensitive to multiple antibiotic. Also chest x-ray was suspicion of pneumonia with patchy perihilar infiltrate 08/20/2020 Patient is fully awake and oriented, he is in mild respiratory distress, he states that he is a little more short of breath than yesterday and he agrees that he is not ready to go home.. His Vitas looks stable and he is saturating 96% on 2 L oxygen via nasal cannula. Labs with CBC and BMP are unremarkable. Pro-calcitonin is negative at 0.03 On exam he has decreased air entry on both lung camp with some basal crepitation. Most likely patient has COPD exacerbation, he says that he smoked for more than 50 years and he quit about 10 years ago and he has been told he has COPD before We gave him 1 extra dose of Lasix and increase his Solu-Medrol 60 mg every 8 hours. We will keep monitoring 08/21/2020 Patient still have dyspnea and this is slightly worse compared over the last couple days. His chest x-ray showing worsening pneumonia on the right side although it's mild. We going to change his antibiotics from Rocephin to Zosyn. Continue with doxycycline for now. We'll transfer sputum culture. He states his right shoulder pain is better Patient has rough night and some hallucination per staff, his steroids dose in the morning was not given, his examination showed no worsening wheezing and actually there is no much wheezing, so we lowered his Solu-Medrol to 40 mg twice daily. No urinary symptoms. Objective - Vital Signs Vital signs: Vital Signs Temp 98.0 F 08/21/20 07:49 Pulse 76 08/21/20 09:05 Resp 18 08/21/20 07:49 BP 143/69 08/21/20 07:49 Pulse Ox 94 L 08/21/20 07:49 Intake & Output 08/20/20 08/21/20 08/21/20 18:59 06:59 18:59 Intake Total 444 360 240 Output Total 375 250 Balance 69 110 240 Weight 92 kg Intake: Oral 444 360 240 Output: Urine 375 250 Other: Voiding Method Bedpan Bedpan Bedpan Urinal Urinal Urinal - Exam GENERAL: The patient is alert and oriented x3, not in any acute distress. Well developed, well nourished. HEENT: Pupils are round and equally reacting to light. EOMI. No scleral icterus. No conjunctival pallor. Normocephalic, atraumatic. No pharyngeal erythema. No thyromegaly. CARDIOVASCULAR: S1 and S2 present. No murmurs, rubs, or gallops. -PULMONARY: Chest is clear to auscultation, scattered bilateral expiratory wheezing ABDOMEN: Soft, nontender, nondistended, normoactive bowel sounds. No palpable organomegaly. MUSCULOSKELETAL: No joint swelling or deformity. EXTREMITIES: No cyanosis, clubbing, or pedal edema. NEUROLOGICAL: Gross neurological examination did not reveal any focal deficits. SKIN: No rashes. no petechiae. - Labs CBC & Chem 7: 08/19/20 14:28 08/19/20 14:28 Assessment and Plan Assessment: -Acute urinary tract infection with Klebsiella, patient is a started on ceftriaxone -Mostly acute pneumonia with exertional dyspnea.Chest x-rays pending. Continue with Zosyn and doxycycline -Paroxysmal atrial fibrillation, patient rate is controlled and he is on Zestril. -COPD exacerbation, continue with inhaled steroids. We will add systemic steroids -Acute hypoxic respiratory failure secondary to COPD and pneumonia -Patient with prostatic hypertrophy DVT prophylaxis: Xarelto GI prophylaxis: Pepcid PT/OT: Recommended subacute rehab Prognosis is guarded
[2020-08-21 12:22] LABS: African American GFR (CKD) 54.2 (60.0-200.0); Albumin 3.9 g/dL (3.80-4.90); Albumin/Globulin Ratio 1.44 (1.60-3.17); Anion Gap 8.8 mmol/L (4.00-12.00); BUN/Creat Ratio 25.71 Ratio (12.00-20.00); Carbon Dioxide 39.2 mmol/L (21.6-31.8); Globulin 2.7 g/dL (1.6-3.3); Non-African American GFR(CKD) 46.8 (60.0-200.0); Total Bilirubin 0.3 mg/dL (0.2-1.2); Total Protein 6.6 g/dL (6.2-8.2)
[2020-08-21] MEDS ORDERED: POTASSIUM CHLORIDE ER 20 MEQ TAB.ER PO STA (12:39)
[2020-08-21] MEDS: PIPERACILLIN-TAZOBACTAM 3.375 GM in SODIUM CHLORIDE 0.9% 100 ML IVPB SCH ×2 (12:48→20:40)
[2020-08-21] MEDS: MAGNESIUM OXIDE 400 MG TAB PO SCH (15:15)
--- NOTE | 2020-08-21 15:28 | XR ---
EXAMINATION TYPE: XR chest 1V portable DATE OF EXAM: 08/21/2020 COMPARISON: Prior chest x-ray 08/15/2020 HISTORY: Increased shortness of breath TECHNIQUE: Single frontal view of the chest is obtained. FINDINGS: The heart is enlarged. Retrocardiac density persists. Generator is stable with leads in th e right atrium and ventricle. No evident pneumothorax. Left hemidiaphragm remains obscured. Interstit ium is increased. IMPRESSION: There may be component of interstitial edema, suspect improvement in aeration as compare d to prior exam. Persistent left lower lobe atelectasis versus pneumonia or edema with associated eff usion.
--- NOTE | 2020-08-21 15:30 | XR ---
Right shoulder HISTORY: Trauma and pain 3 views of the right shoulder and 4 images Arthropathy is present at the chromic clavicular joint. Bone mineralization is reduced. Alignment and joint spaces are maintained. Right lung apex as visualized is normal. Patchy basilar density is note d. IMPRESSION: No fracture or dislocation, correlate for pneumonia, edema. Low bone mineralization. Foll ow-up as indicated. Exam submitted for interpretation 08/21/2020
[2020-08-21] MEDS: methylPREDNISolone SOD SUCCI 40 MG/ML 1 ML VIAL IV SCH (20:39)
[2020-08-21] MEDS: allopurinoL 100 MG TAB PO SCH (20:39)
[2020-08-21] MEDS: TAMSULOSIN 0.4 MG CAP.ER.24H PO SCH (20:39)
[2020-08-22] MEDS: PIPERACILLIN-TAZOBACTAM 3.375 GM in SODIUM CHLORIDE 0.9% 100 ML IVPB SCH ×3 (04:23→19:18)
[2020-08-22] MEDS: FAMOTIDINE 20 MG TAB PO SCH ×2 (07:22→19:18)
[2020-08-22] MEDS: ESCITALOPRAM 10 MG TAB PO SCH (07:22)
[2020-08-22] MEDS: METOPROLOL TARTRATE 50 MG TAB PO SCH ×2 (07:22→19:18)
[2020-08-22] MEDS: THIAMINE 100 MG TAB PO SCH ×2 (07:22→15:22)
[2020-08-22] MEDS: DOXYCYCLINE 100 MG CAP PO SCH (07:22)
[2020-08-22] MEDS: RIVAROXABAN 15 MG TAB PO SCH (07:22)
[2020-08-22] MEDS: AMIODARONE 200 MG TAB PO SCH (07:22)
[2020-08-22] MEDS: ATORVASTATIN 20 MG TAB PO SCH (07:22)
[2020-08-22] MEDS: FUROSEMIDE 40 MG TAB PO SCH ×2 (07:22→15:22)
[2020-08-22] MEDS: lisinopriL 5 MG TAB PO SCH (07:23)
[2020-08-22] MEDS: methylPREDNISolone SOD SUCCI 40 MG/ML 1 ML VIAL IV SCH (07:23)
[2020-08-22] MEDS: IPRATROPIUM-ALBUTEROL 3 ML NEB INHALATION SCH ×5 (08:17→21:06)
[2020-08-22] MEDS: BUDESONIDE 0.5 MG/2 ML NEBU INHALATION SCH ×3 (08:17→21:06)
[2020-08-22 09:48] LABS: African American GFR (CKD) 54.2 (60.0-200.0); Anion Gap 5.1 mmol/L (4.00-12.00); BUN/Creat Ratio 28.57 Ratio (12.00-20.00); Calcium 8.9 mg/dL (8.7-10.3); Carbon Dioxide 39.9 mmol/L (21.6-31.8); Non-African American GFR(CKD) 46.8 (60.0-200.0); Potassium 3.5 mmol/L (3.5-5.5)
[2020-08-22] MEDS ORDERED: MELATONIN 5 MG TABLET PO PRN (09:59)
--- NOTE | 2020-08-22 10:17 | P.PN ---
Subjective This is a pleasant 80 years old male with past medical history of atrial fibrillation, heart failure, status post AICD gastroesophageal reflux disease, GI bleed, benign prostatic hypertrophy, history of alcohol abuse, gout, BPH, uses a walker at baseline. Presents with syncope secondary to alcohol drinking, anesthesiologist evaluated the patient. Echocardiogram showing ejection fraction of 30-35% with wall hypokinesia and severely enlarged right ventricle with moderate mitral regurgitation, moderate to severe tricuspid regurgitation and severe pulmonary hypertension. Cardiology cleared the patient for discharge However patient today is still hypoxic with oxygen saturation of 88% on room air, and went up to 92% on 2 L. Patient states that he got winded very easily with exertion. Also patient has cough with phlegm but he does not look what color it is. Patient has loose bowel movement once a day. He states that he feels depressed but denies suicidal ideation since his about 3 years ago. Psychiatric evaluated the patient and recommended no further intervention. Patient also complains from very little burning on urination and sometimes associated with increased frequency. His also complaining of from right shoulder pain related to his fall Patient has abnormal UA on admission and his urine culture is growing Klebsiella sensitive to multiple antibiotic. Also chest x-ray was suspicion of pneumonia with patchy perihilar infiltrate 08/20/2020 Patient is fully awake and oriented, he is in mild respiratory distress, he states that he is a little more short of breath than yesterday and he agrees that he is not ready to go home.. His Vitas looks stable and he is saturating 96% on 2 L oxygen via nasal cannula. Labs with CBC and BMP are unremarkable. Pro-calcitonin is negative at 0.03 On exam he has decreased air entry on both lung camp with some basal crepitation. Most likely patient has COPD exacerbation, he says that he smoked for more than 50 years and he quit about 10 years ago and he has been told he has COPD before We gave him 1 extra dose of Lasix and increase his Solu-Medrol 60 mg every 8 hours. We will keep monitoring 08/21/2020 Patient still have dyspnea and this is slightly worse compared over the last couple days. His chest x-ray showing worsening pneumonia on the right side although it's mild. We going to change his antibiotics from Rocephin to Zosyn. Continue with doxycycline for now. We'll transfer sputum culture. He states his right shoulder pain is better Patient has rough night and some hallucination per staff, his steroids dose in the morning was not given, his examination showed no worsening wheezing and actually there is no much wheezing, so we lowered his Solu-Medrol to 40 mg twice daily. No urinary symptoms. 08/22/2020 Patient still tachypneic and little dyspneic especially with exertion however he feels better. No much coughing. No chest pain. Chest x-ray from yesterday was showing worsening pneumonia and his antibiotics changed to Zosyn. His oxygen s aturation is good with 95% and 2 L. No much wheezing so we switch his salmeterol to prednisone tomorrow especially he is developing some hallucination. His BMP sample showing slightly elevated creatinine to 1.4, mostly due to the effects of Lasix but it is stable and I will keep the same days of Lasix 40 mg by mouth twice daily We will check chest x-ray tomorrow morning and if it shows improvement then we may consider sending him to subacute rehab, I told the patient and he agrees Objective - Vital Signs Vital signs: Vital Signs Temp 98.6 F 08/22/20 07:55 Pulse 72 08/22/20 08:30 Resp 18 08/22/20 07:55 BP 151/66 08/22/20 07:55 Pulse Ox 95 08/22/20 07:55 Intake & Output 08/21/20 08/22/20 08/22/20 18:59 06:59 18:59 Intake Total 720 Output Total 200 Balance 520 Weight 91.5 kg Intake: Oral 720 Output: Urine 200 Other: Voiding Method Bedpan Toilet Toilet Urinal Bedpan Urinal Urinal # Voids 1 # Bowel Movements 1 - Exam GENERAL: The patient is alert and oriented x3, not in any acute distress. Well developed, well nourished. HEENT: Pupils are round and equally reacting to light. EOMI. No scleral icterus. No conjunctival pallor. Normocephalic, atraumatic. No pharyngeal erythema. No thyromegaly. CARDIOVASCULAR: S1 and S2 present. No murmurs, rubs, or gallops. -PULMONARY: Chest is clear to auscultation, scattered bilateral expiratory wheezing ABDOMEN: Soft, nontender, nondistended, normoactive bowel sounds. No palpable organomegaly. MUSCULOSKELETAL: No joint swelling or deformity. EXTREMITIES: No cyanosis, clubbing, or pedal edema. NEUROLOGICAL: Gross neurological examination did not reveal any focal deficits. SKIN: No rashes. no petechiae. - Labs CBC & Chem 7: 08/19/20 14:28 08/22/20 06:59 Labs: Abnormal Lab Results - Last 24 Hours (Table) 08/21/20 08/22/20 Range/Units 07:42 06:59 Sodium 146 H (135-145) mmol/L Potassium 3.0 L (3.5-5.5) mmol/L Carbon Dioxide 39.2 H 39.9 H (21.6-31.8) mmol/L BUN 36.0 H 40.0 H (9.0-27.0) mg/dL Est GFR (CKD-EPI)AfAm 54.2 L 54.2 L (60.0-200.0) Est GFR (CKD-EPI)NonAf 46.8 L 46.8 L (60.0-200.0) BUN/Creatinine Ratio 25.71 H 28.57 H (12.00-20.00) Ratio Albumin/Globulin Ratio 1.44 L (1.60-3.17) g/dL Assessment and Plan Assessment: -Acute urinary tract infection with Klebsiella, patient is a started on ceftriaxone, antibiotic changed to Zosyn area no more urinary symptoms -Mostly acute pneumonia with exertional dyspnea.Chest x-rays pending. Continue with Zosyn and doxycycline -Paroxysmal atrial fibrillation, patient rate is controlled and he is on Xarelto -COPD exacerbation, continue with inhaled steroids. We will add systemic stero ids -Acute hypoxic respiratory failure secondary to COPD and pneumonia -Patient with prostatic hypertrophy DVT prophylaxis: Xarelto GI prophylaxis: Pepcid PT/OT: Recommended subacute rehab Prognosis is guarded
[2020-08-22] MEDS: OLANZapine 5 MG TAB PO SCH ×2 (13:12→19:18)
[2020-08-22] MEDS: MAGNESIUM OXIDE 400 MG TAB PO SCH (15:22)
--- NOTE | 2020-08-22 16:41 | CONS ---
CONSULTATION DATE OF SERVICE: 08/22/2020 PURPOSE FOR CONSULTATION: Evaluate for alcohol withdrawal issues, agitation, disorganized thoughts and sleep problems. INTERVAL HISTORY: Patient was last seen on the by Dr. Henley. His diagnosis was alcohol use disorder and depression. He continued psychotropic medications including Lexapro 10 mg daily. The plan was for outpatient therapy versus a substance abuse inpatient program. The patient continues to struggle with cardiac issues in part relating to his alcohol use issues. Dr. Suazo noted that there was consideration for a referral to subacute rehab. The patient was in agreement with that plan. When I talked to nursing, they indicated that he has been struggling with getting quite distressed. At times he seems confused. He has been sleeping poorly at night. He gets quite restless. He has had some episodes during the day where he wanders out of his room and goes into the rooms where it is not clear where he has gone. At one point he went across the aaron to a bathroom in another room. When I talked to the patient he acknowledged being quite distressed. He does say that he has been sleeping poorly. In his history he does have a past history of withdrawal related seizures. His last use of alcohol would have been in 2018 or 2019. He had a fall which prompted the family to get him to the hospital. He admitted in the ED to drinking "several vodkas daily." When I talked to him he was fairly clear in his thoughts. He was somewhat restless. He answered questions appropriately, though did not say a lot. He did have a distressed manner. ASSESSMENT: This 80-year-old male is now about 9 days into withdrawal. It is noted that the worst of withdrawal usually is in day 10 to 14 which is where the patient is at right now. He does appear to have some psychotic symptoms, agitation, and sleep disorder secondary to alcohol withdrawal. He apparently had received a dose of Valium today. According to nursing at this point the patient is beyond risk for delirium tremens or alcohol related withdrawal seizures. I would not continue any use of benzodiazepines. I will start the patient on Zyprexa 5 mg twice a day. The aim of Zyprexa is to help reduce physiologic stress response relating to acute alcohol withdrawal. Zyprexa may help quiet anxiety or some of the difficult periods he has gotten into. I would anticipate Zyprexa to reduce any delusional thinking he may have. Zyprexa may also help with sleep. There might be indication for increasing the Zyprexa to 5 mg 3 times a day. I will get followup later today in terms of his response to the initial dose of Zyprexa. TONI / DAVIDN: [id number] /
[2020-08-22] MEDS: allopurinoL 100 MG TAB PO SCH (19:18)
[2020-08-22] MEDS: TAMSULOSIN 0.4 MG CAP.ER.24H PO SCH (19:18)
[2020-08-23] MEDS: PIPERACILLIN-TAZOBACTAM 3.375 GM in SODIUM CHLORIDE 0.9% 100 ML IVPB SCH ×2 (04:02→12:44)
--- NOTE | 2020-08-23 06:38 | XR ---
EXAMINATION TYPE: XR chest 1V DATE OF EXAM: 08/23/2020 CLINICAL HISTORY: Difficulty breathing progress study. TECHNIQUE: Single AP portable upright view of the chest is obtained. COMPARISON: Chest x-ray from 2 days earlier and older studies. CT chest February 14, 2019. FINDINGS: Persistent cardiomegaly with dual lead pacemaker/AICD end atherosclerotic change in the th oracic aorta. Persistent elevated left hemidiaphragm an background chronic parenchymal change with pe rsistent left greater than right bibasilar opacities. Osseous structures are intact. IMPRESSION: Cardiomegaly with small left pleural effusion and left greater than right bibasilar acute atelectasis and/or infiltrate all redemonstrated. No significant change from most recent x-ray.
[2020-08-23] MEDS: IPRATROPIUM-ALBUTEROL 3 ML NEB INHALATION SCH ×3 (07:06→15:18)
[2020-08-23] MEDS: BUDESONIDE 0.5 MG/2 ML NEBU INHALATION SCH (07:06)
[2020-08-23] MEDS ORDERED: predniSONE 20 MG TAB PO SCH (09:00)
[2020-08-23] MEDS: FUROSEMIDE 40 MG TAB PO SCH (09:04)
[2020-08-23] MEDS: METOPROLOL TARTRATE 50 MG TAB PO SCH (09:04)
[2020-08-23] MEDS: OLANZapine 5 MG TAB PO SCH (09:04)
[2020-08-23] MEDS: ATORVASTATIN 20 MG TAB PO SCH (09:05)
[2020-08-23] MEDS: THIAMINE 100 MG TAB PO SCH (09:05)
[2020-08-23] MEDS: RIVAROXABAN 15 MG TAB PO SCH (09:05)
[2020-08-23] MEDS: FAMOTIDINE 20 MG TAB PO SCH (09:05)
[2020-08-23] MEDS: lisinopriL 5 MG TAB PO SCH (09:05)
[2020-08-23] MEDS: ESCITALOPRAM 10 MG TAB PO SCH (09:05)
[2020-08-23] MEDS: AMIODARONE 200 MG TAB PO SCH (09:06)
[2020-08-23 09:55] LABS: African American GFR (CKD) 59.3 (60.0-200.0); BUN/Creat Ratio 24.62 Ratio (12.00-20.00); Calcium 8.8 mg/dL (8.7-10.3); Chloride 98 mmol/L (96-109); Glucose 89 mg/dL (70-110); Non-African American GFR(CKD) 51.2 (60.0-200.0); Potassium 3.1 mmol/L (3.5-5.5); Sodium 148 mmol/L (135-145)
[2020-08-23 10:32] LABS: Carbon Dioxide >40.0 mmol/L (21.6-31.8)
--- NOTE | 2020-08-23 11:30 | P.DS ---
Providers Date of admission: 08/16/20 13:04 Expected date of discharge: 08/23/20 Attending physician: Obed Lopez MD Consults: 08/19/20 10:11 Consult Physician Routine Consulting Provider: Jaylan Jason Consult Reason/Comments: Depression/ETOH Do you want consulting provider notified?: Yes Primary care physician: Jazzmine Lopez - Discharge Diagnosis(es) (1) Acute on chronic systolic (congestive) heart failure Current Visit: Yes Status: Acute (2) Cardiomyopathy Current Visit: Yes Status: Acute (3) Alcohol abuse Current Visit: Yes Status: Acute (4) Frequent falls Current Visit: Yes Status: Acute (5) Alcoholism Current Visit: No Status: Acute (6) Atrial fibrillation Current Visit: No Status: Acute Hospital Course: This is a pleasant 80 years old male with past medical history of atrial fibrillation, heart failure, status post AICD gastroesophageal reflux disease, GI bleed, benign prostatic hypertrophy, history of alcohol abuse, gout, BPH, u ses a walker at baseline. Presents with syncope secondary to alcohol drinking, outside sales advertising executive evaluated the patient. Echocardiogram showing ejection fraction of 30-35% with wall hypokinesia and severely enlarged right ventricle with moderate mitral regurgitation, moderate to severe tricuspid regurgitation and severe pulmonary hypertension. Cardiology cleared the patient for discharge However patient today is still hypoxic with oxygen saturation of 88% on room air, and went up to 92% on 2 L. Patient states that he got winded very easily with exertion. Also patient has cough with phlegm but he does not look what color it is. Patient has loose bowel movement once a day. He states that he feels depressed but denies suicidal ideation since his about 3 years ago. Psychiatric evaluated the patient and recommended no further intervention. Patient also complains from very little burning on urination and sometimes associated with increased frequency. His also complaining of from right shoulder pain related to his fall Patient has abnormal UA on admission and his urine culture is growing Klebsiella sensitive to multiple antibiotic. Also chest x-ray was suspicion of pneumonia with patchy perihilar infiltrate 08/20/2020 Patient is fully awake and oriented, he is in mild respiratory distress, he states that he is a little more short of breath than yesterday and he agrees norberto t he is not ready to go home.. His Vitas looks stable and he is saturating 96% on 2 L oxygen via nasal cannula. Labs with CBC and BMP are unremarkable. Pro-calcitonin is negative at 0.03 On exam he has decreased air entry on both lung camp with some basal crepitation. Most likely patient has COPD exacerbation, he says that he smoked for more than 50 years and he quit about 10 years ago and he has been told he has COPD before We gave him 1 extra dose of Lasix and increase his Solu-Medrol 60 mg every 8 hours. We will keep monitoring 08/21/2020 Patient still have dyspnea and this is slightly worse compared over the last couple days. His chest x-ray showing worsening pneumonia on the right side although it's mild. We going to change his antibiotics from Rocephin to Zosyn. Continue with doxycycline for now. We'll transfer sputum culture. He states his right shoulder pain is better Patient has rough night and some hallucination per staff, his steroids dose in the morning was not given, his examination showed no worsening wheezing and actually there is no much wheezing, so we lowered his Solu-Medrol to 40 mg twice daily. No urinary symptoms. 08/22/2020 Patient still tachypneic and little dyspneic especially with exertion however he feels better. No much coughing. No chest pain. Chest x-ray from yesterday was showing worsening pneumonia and his antibiotics changed to Zosyn. His oxygen saturation is good with 95% and 2 L. No much wheezing so we switch his salmeterol to prednisone tomorrow especially he is developing some hallucination. His BMP sample showing slightly elevated creatinine to 1.4, mostly due to the effects of Lasix but it is stable and I will keep the same days of Lasix 40 mg by mouth twice daily We will check chest x-ray tomorrow morning and if it shows improvement then we may consider sending him to subacute rehab, I told the patient and he agrees 08/23/2020 Pt is feeling significantly improved today, denies shortness of breath or cough. He denies agitation, scoring zero on CIWA scale. He was started on zyprexa for anxiety by psych and feels it is working well. He is discharged in stable condition and recommended to complete 2 additional days of augmentin as well as prednisone taper. He will remain on the zyprexa qhs as well as lisinopril. Pt is recommended to follow up with PCP within 2 weeks of discharge. Discharge exam: Gen: well developed, NAD CV: irregular, no murmur Lungs: normal effort, clear throughout Neuro: no tremor Patient Condition at Discharge: Serious Plan - Discharge Summary Discharge Rx Participant: Yes New Discharge Prescriptions: New Furosemide [Lasix] 40 mg PO BID@0900,1600 #60 tab Thiamine [Vitamin B-1] 100 mg PO BID-W/MEALS #60 tab lisinopriL [Zestril] 5 mg PO DAILY #30 tab OLANZapine [ZyPREXA] 5 mg PO HS #30 tab Amoxic-Pot Clav 875-125Mg [Augmentin 875-125] 1 tab PO Q12HR 1 Days #2 tab predniSONE 10 mg PO DIRECTED #18 tab Continue Cyanocobalamin (Vitamin B-12) [Vitamin B-12] 1,000 mcg PO DAILY Tamsulosin [Flomax] 0.4 mg PO HS Rivaroxaban [Xarelto] 20 mg PO DAILY Metoprolol Tartrate [Lopressor] 50 mg PO BID Potassium Chloride [Klor-Con 20] 20 meq PO BID Cholecalciferol (Vitamin D3) [Vitamin D3] 2,000 unit PO HS Loratadine [Claritin] 10 mg PO DAILY #30 tab Amiodarone [Cordarone] 200 mg PO BID tab Atorvastatin [Lipitor] 20 mg PO DAILY tab allopurinoL [Zyloprim] 100 mg PO HS Escitalopram [Lexapro] 10 mg PO DAILY Magnesium Gluconate [Magonate] 500 mg PO HS Discontinued Furosemide [Lasix] 20 mg PO DAILY Discharge Medication List Cholecalciferol (Vitamin D3) [Vitamin D3] 2,000 unit PO HS 02/13/19 [History] Cyanocobalamin (Vitamin B-12) [Vitamin B-12] 1,000 mcg PO DAILY 02/13/19 [History] Metoprolol Tartrate [Lopressor] 50 mg PO BID 02/13/19 [History] Potassium Chloride [Klor-Con 20] 20 meq PO BID 02/13/19 [History] Rivaroxaban [Xarelto] 20 mg PO DAILY 02/13/19 [History] Tamsulosin [Flomax] 0.4 mg PO HS 02/13/19 [History] Loratadine [Claritin] 10 mg PO DAILY #30 tab 03/14/19 [Rx] Amiodarone [Cordarone] 200 mg PO BID tab 02/25/20 [Rx] Atorvastatin [Lipitor] 20 mg PO DAILY tab 02/25/20 [Rx] Escitalopram [Lexapro] 10 mg PO DAILY 08/14/20 [History] Magnesium Gluconate [Magonate] 500 mg PO HS 08/14/20 [History] allopurinoL [Zyloprim] 100 mg PO HS 08/14/20 [History] Amoxic-Pot Clav 875-125Mg [Augmentin 875-125] 1 tab PO Q12HR 1 Days #2 tab 08/23/20 [Rx] Furosemide [Lasix] 40 mg PO BID@0900,1600 #60 tab 08/23/20 [Rx] OLANZapine [ZyPREXA] 5 mg PO HS #30 tab 08/23/20 [Rx] Thiamine [Vitamin B-1] 100 mg PO BID-W/MEALS #60 tab 08/23/20 [Rx] lisinopriL [Zestril] 5 mg PO DAILY #30 tab 08/23/20 [Rx] predniSONE 10 mg PO DIRECTED #18 tab 08/23/20 [Rx] Follow up Appointment(s)/Referral(s): Jazzmine Lopez DO [Primary Care Provider] - 1-2 days Robert Reynolds MD [STAFF PHYSICIAN] - 2 Weeks Discharge Disposition: TRANSFER TO SNF/ECF
[2020-08-23 15:30] VITALS: BP 130/66; PULSE 64; RESP 18; TEMP 98.9
[2020-08-24] MEDS ORDERED: FAMOTIDINE 20 MG TAB PO SCH (09:00)
== END 2020-08-23 16:58 | DRG 291 ==
LOC: EC 16:07 → 5NMEDONC 20:42 → OBSVTOIN 08-16 13:04
PROVIDERS: ADMIT Family Medicine; ATTEND Family Medicine
PROC: 5A12012 Performance of Cardiac Output, Single, Manual (ICD-10-PCS; principal; 2020-08-15)
DX: I11.0 Hypertensive heart disease with heart failure (principal); J96.01 Acute respiratory failure with hypoxia; J96.02 Acute respiratory failure with hypercapnia; I46.9 Cardiac arrest, cause unspecified; F10.239 Alcohol dependence with withdrawal, unspecified; E87.1 Hypo-osmolality and hyponatremia; E87.2 Acidosis; N39.0 Urinary tract infection, site not specified; J44.1 Chronic obstructive pulmonary disease with (acute) exacerbation; I47.2 Ventricular tachycardia; F32.9 Major depressive disorder, single episode, unspecified; F41.9 Anxiety disorder, unspecified; I08.3 Combined rheumatic disorders of mitral, aortic and tricuspid valves; I25.10 Atherosclerotic heart disease of native coronary artery without angina pectoris; I25.2 Old myocardial infarction; I27.20 Pulmonary hypertension, unspecified; B96.1 Klebsiella pneumoniae [K. pneumoniae] as the cause of diseases classified elsewhere; I50.23 Acute on chronic systolic (congestive) heart failure; E78.5 Hyperlipidemia, unspecified; I42.9 Cardiomyopathy, unspecified; R56.9 Unspecified convulsions; Z79.01 Long term (current) use of anticoagulants; E86.1 Hypovolemia; Z20.828 Contact with and (suspected) exposure to other viral communicable diseases; Z87.01 Personal history of pneumonia (recurrent); F10.229 Alcohol dependence with intoxication, unspecified; R29.6 Repeated falls; N47.1 Phimosis; N40.1 Benign prostatic hyperplasia with lower urinary tract symptoms; R33.8 Other retention of urine; I48.0 Paroxysmal atrial fibrillation; Z87.891 Personal history of nicotine dependence; Z79.899 Other long term (current) drug therapy; Z82.3 Family history of stroke; Z83.3 Family history of diabetes mellitus; Z83.79 Family history of other diseases of the digestive system; Z86.79 Personal history of other diseases of the circulatory system; Z91.19 Patient's noncompliance with other medical treatment and regimen; Z91.81 History of falling; Z95.810 Presence of automatic (implantable) cardiac defibrillator; Z98.42 Cataract extraction status, left eye; Z98.41 Cataract extraction status, right eye; Z96.1 Presence of intraocular lens; Z91.030 Bee allergy status; D50.9 Iron deficiency anemia, unspecified; M10.9 Gout, unspecified; K21.9 Gastro-esophageal reflux disease without esophagitis
CPT/HCPCS: 36415; 36600; 70450; 71045; 71046; 72125; 80048; 80053; 81001; 82140; 82805; 83605; 83735; 83880; 84100; 84145; 84484; 85025; 85610; 85730; 87077; 87086; 87186; 87635; 90471; 90715; 93005; 93306; 94640; 94760; 96361; 96365; 96366; 96367; 96372; 99285

== ENCOUNTER 2020-12-09 05:46 | Inpatient (IN) | payer MEDICARE ==
[2020-12-09] MEDS ORDERED: SODIUM CHLORIDE 0.9% 1,000 ML IV STA (06:02)
--- NOTE | 2020-12-09 06:06 | ED ---
General Adult HPI - General Chief complaint: Weakness Stated complaint: General weakness Time Seen by Provider: 12/09/20 05:54 Source: patient, EMS, RN notes reviewed Mode of arrival: EMS Limitations: no limitations - History of Present Illness Initial comments: Patient is a pleasant 80-year-old male presenting to the emergency Department with generalized weakness. Patient is somewhat a poor historian. Onset of symptoms was the past day or 2. Patient states symptoms have progressed. Patient reportedly has history of similar symptoms previously associated with urinary tract infection. Patient denies any dysuria. No fever. No abdominal pain. No chest pain. Patient does have chronic dyspnea and is on oxygen. Dyspnea is unchanged. No isolated area of weakness or confusion. - Related Data Home Medications Medication Instructions Recorded Confirmed Cholecalciferol (Vitamin D3) 2,000 unit PO HS 02/13/19 08/14/20 [Vitamin D3] Cyanocobalamin (Vitamin B-12) 1,000 mcg PO DAILY 02/13/19 08/14/20 [Vitamin B-12] Metoprolol Tartrate [Lopressor] 50 mg PO BID 02/13/19 08/14/20 Potassium Chloride [Klor-Con 20] 20 meq PO BID 02/13/19 08/14/20 Rivaroxaban [Xarelto] 20 mg PO DAILY 02/13/19 08/14/20 Tamsulosin [Flomax] 0.4 mg PO HS 02/13/19 08/14/20 Escitalopram [Lexapro] 10 mg PO DAILY 08/14/20 08/14/20 Magnesium Gluconate [Magonate] 500 mg PO HS 08/14/20 08/14/20 allopurinoL [Zyloprim] 100 mg PO HS 08/14/20 08/14/20 Previous Rx's Medication Instructions Recorded Loratadine [Claritin] 10 mg PO DAILY #30 tab 03/14/19 Amiodarone [Cordarone] 200 mg PO BID tab 02/25/20 Atorvastatin [Lipitor] 20 mg PO DAILY tab 02/25/20 Amoxic-Pot Clav 875-125Mg 1 tab PO Q12HR 1 Days #2 tab 08/23/20 [Augmentin 875-125] Furosemide [Lasix] 40 mg PO BID@0900,1600 #60 tab 08/23/20 OLANZapine [ZyPREXA] 5 mg PO HS #30 tab 08/23/20 Thiamine [Vitamin B-1] 100 mg PO BID-W/MEALS #60 tab 08/23/20 lisinopriL [Zestril] 5 mg PO DAILY #30 tab 08/23/20 predniSONE 10 mg PO DIRECTED #18 tab 08/23/20 Allergies Allergy/AdvReac Type Severity Reaction Status Date / Time bee venom protein (honey bee) Allergy Anaphylaxis Verified 08/14/20 20:26 Review of Systems ROS Statement: Those systems with pertinent positive or pertinent negative responses have been documented in the HPI. ROS Other: All systems not noted in ROS Statement are negative. Constitutional: Denies: fever Eyes: Denies: eye pain ENT: Denies: ear pain Respiratory: Denies: cough, dyspnea Cardiovascular: Denies: chest pain Endocrine: Denies: fatigue Gastrointestinal: Denies: abdominal pain Genitourinary: Denies: urgency Musculoskeletal: Denies: back pain Skin: Denies: rash Neurological: Reports: as per HPI, weakness. Denies: headache, confusion Past Medical History Past Medical History: Atrial Fibrillation, Heart Failure, GERD/Reflux, GI Bleed, Hyperlipidemia, Myocardial Infarction ([place]), Pneumonia, Prostate Disorder Additional Past Medical History / Comment(s): Afib, AICD.,Hx of ETOH abuse, Hx C-diff (2014)., iron anemia, BPH., gout, Hx of falls- uses walker with wheels., Pneumonia (January 2019), Hospital Adm 03/10/19 for nasal bleeding- received transfusions., Hx of blood clot in left arm., scab left arm., Daughter- Brie lives with pt., Phimosis & Urine retention-Indwelling garcia catheter Placed by Dr Millard 03/30/19., Last Myocardial Infarction Date:: 2010 History of Any Multi-Drug Resistant Organisms: None Reported Date of last positivie culture/infection: 2014 MDRO Source:: stool Past Surgical History: AICD, Cardiac Ablation, Pacemaker Additional Past Surgical History / Comment(s): Bilateral cataract removals/lens implants., [employer] DUAL CHAMBER AICD/PACEMAKER REPLACED 03/27/2017. Past Anesthesia/Blood Transfusion Reactions: No Reported Reaction Additional Past Anesthesia/Blood Transfusion Reaction / Comment(s): RECENT BLOOD TRANSFUSIONS AT [facility].-DENIES REACTION Type of Cardiac Device: AICD Device Placement Date:: 03/27/2017 Past Psychological History: Depression Smoking Status: Former smoker Past Alcohol Use History: Daily, Heavy Past Drug Use History: None Reported - Past Family History Mother Family Medical History: CVA/TIA, Diabetes Mellitus Additional Family Medical History / Comment(s): Mother had "severe" diabetes and a CVA. Father Family Medical History: CVA/TIA, GI Bleed Additional Family Medical History / Comment(s): Father had a CVA General Exam Limitations: no limitations General appearance: alert, in no apparent distress Head exam: Present: atraumatic Eye exam: Present: normal appearance, PERRL, EOMI ENT exam: Present: normal oropharynx Neck exam: Present: normal inspection Respiratory exam: Present: normal lung sounds bilaterally Cardiovascular Exam: Present: regular rate, irregular rhythm GI/Abdominal exam: Present: soft. Absent: tenderness Extremities exam: Present: normal inspection. Absent: pedal edema, calf tenderness Neurological exam: Present: alert, CN II-XII intact. Absent: motor sensory d eficit Expanded Neurological exam: Present: protecting the airway Patient oriented to: Present: person, place. Absent: time (States the year is 2022) Speech: Present: fluid speech Cranial nerves: EOM's Intact: Normal Sensory exam: Upper Extremity Light Touch: Normal, Lower Extremity Light Touch: Normal Motor strength exam: RUE: 5, LUE: 5, RLE: 5, LLE: 5 Eye Response: (4) open spontaneously Motor Response: (6) obeys commands Verbal Response: (4) confused conversation Psychiatric exam: Present: normal affect, normal mood Skin exam: Present: normal color Course Vital Signs 12/09/20 12/09/20 12/09/20 05:48 06:25 08:18 Temperature 97 F L Pulse Rate 63 66 Respiratory 22 18 Rate Blood Pressure 135/77 O2 Sat by Pulse 98 93 L 94 L Oximetry EKG Findings - EKG Comments: EKG Findings:: a fibrillation with a rate of 76. QRS 106. QT 4:30. QTC 43. Normal axis. Incomplete left bundle-branch block. T-wave inversion V3 through V6. Medical Decision Making - Medical Decision Making Patient reevaluated and updated. Case discussed with Dr. Garcia, who will admit covering for Dr. guillen. He would like nephrology consult - Lab Data Result diagrams: 12/09/20 06:12 12/09/20 06:12 Lab Results 12/09/20 12/09/20 12/09/20 Range/Units 06:12 06:12 06:12 WBC 4.9 (3.8-10.6) k/uL RBC 3.20 L (4.30-5.90) m/uL Hgb 9.9 L (13.0-17.5) gm/dL Hct 31.9 L (39.0-53.0) % MCV 99.9 (80.0-100.0) fL MCH 30.9 (25.0-35.0) pg MCHC 30.9 L (31.0-37.0) g/dL RDW 15.2 (11.5-15.5) % Plt Count 152 (150-450) k/uL MPV 8.2 Neutrophils % 64 % Lymphocytes % 25 % Monocytes % 8 % Eosinophils % 2 % Basophils % 1 % Neutrophils # 3.1 (1.3-7.7) k/uL Lymphocytes # 1.2 (1.0-4.8) k/uL Monocytes # 0.4 (0-1.0) k/uL Eosinophils # 0.1 (0-0.7) k/uL Basophils # 0.0 (0-0.2) k/uL Hypochromasia Slight Macrocytosis Slight PT 13.2 H (9.0-12.0) sec INR 1.3 H (<1.2) APTT 25.1 (22.0-30.0) sec Sodium (137-145) mmol/L Potassium (3.5-5.1) mmol/L Chloride (98-107) mmol/L Carbon Dioxide (22-30) mmol/L Anion Gap mmol/L BUN (9-20) mg/dL Creatinine (0.66-1.25) mg/dL Est GFR (CKD-EPI)AfAm (>60 ml/min/1.73 sqM) Est GFR (CKD-EPI)NonAf (>60 ml/min/1.73 sqM) Glucose (74-99) mg/dL Plasma Lactic Acid Lemuel (0.7-2.0) mmol/L Calcium (8.4-10.2) mg/dL Magnesium (1.6-2.3) mg/dL Total Bilirubin (0.2-1.3) mg/dL AST (17-59) U/L ALT (4-49) U/L Alkaline Phosphatase (38-126) U/L Troponin I (0.000-0.034) ng/mL NT-Pro-B Natriuret Pep pg/mL Total Protein (6.3-8.2) g/dL Albumin (3.5-5.0) g/dL TSH (0.465-4.680) mIU/L Free T4 (0.78-2.19) ng/dL Free T3 pg/mL (2.8-5.3) pg/ml Urine Color Yellow Urine Appearance Cloudy (Clear) Urine pH 5.5 (5.0-8.0) Ur Specific [place] 1.019 (1.001-1.035) Urine Protein Trace H (Negative) Urine Glucose (UA) Negative (Negative) Urine Ketones Negative (Negative) Urine Blood Negative (Negative) Urine Nitrite Negative (Negative) Urine Bilirubin Negative (Negative) Urine Urobilinogen 2.0 (<2.0) mg/dL Ur Leukocyte Esterase Trace H (Negative) Urine RBC 1 (0-5) /hpf Urine WBC 3 (0-5) /hpf Ur Squamous Epith Cells 1 (0-4) /hpf Calcium Oxalate Crystal Rare H (None) /hpf Urine Bacteria Rare H (None) /hpf Hyaline Casts 34 H (0-2) /lpf Urine Mucus Rare H (None) /hpf Coronavirus (PCR) (Not Detectd) 12/09/20 12/09/20 12/09/20 Range/Units 06:12 06:12 06:12 WBC (3.8-10.6) k/uL RBC (4.30-5.90) m/uL Hgb (13.0-17.5) gm/dL Hct (39.0-53.0) % MCV (80.0-100.0) fL MCH (25.0-35.0) pg MCHC (31.0-37.0) g/dL RDW (11.5-15.5) % Plt Count (150-450) k/uL MPV Neutrophils % % Lymphocytes % % Monocytes % % Eosinophils % % Basophils % % Neutrophils # (1.3-7.7) k/uL Lymphocytes # (1.0-4.8) k/uL Monocytes # (0-1.0) k/uL Eosinophils # (0-0.7) k/uL Basophils # (0-0.2) k/uL Hypochromasia Macrocytosis PT (9.0-12.0) sec INR (<1.2) APTT (22.0-30.0) sec Sodium 139 (137-145) mmol/L Potassium 5.1 (3.5-5.1) mmol/L Chloride 101 (98-107) mmol/L Carbon Dioxide 32 H (22-30) mmol/L Anion Gap 6 mmol/L BUN 43 H (9-20) mg/dL Creatinine 2.15 H (0.66-1.25) mg/dL Est GFR (CKD-EPI)AfAm 32 (>60 ml/min/1.73 sqM) Est GFR (CKD-EPI)NonAf 28 (>60 ml/min/1.73 sqM) Glucose 120 H (74-99) mg/dL Plasma Lactic Acid Lemuel 1.1 (0.7-2.0) mmol/L Calcium 9.0 (8.4-10.2) mg/dL Magnesium 2.0 (1.6-2.3) mg/dL Total Bilirubin 0.5 (0.2-1.3) mg/dL AST 371 H (17-59) U/L ALT 407 H (4-49) U/L Alkaline Phosphatase 69 (38-126) U/L Troponin I <0.012 (0.000-0.034) ng/mL NT-Pro-B Natriuret Pep pg/mL Total Protein 6.5 (6.3-8.2) g/dL Albumin 3.7 (3.5-5.0) g/dL TSH 0.382 L (0.465-4.680) mIU/L Free T4 2.37 H (0.78-2.19) ng/dL Free T3 pg/mL 2.6 L (2.8-5.3) pg/ml Urine Color Urine Appearance (Clear) Urine pH (5.0-8.0) Ur Specific [place] (1.001-1.035) Urine Protein (Negative) Urine Glucose (UA) (Negative) Urine Ketones (Negative) Urine Blood (Negative) Urine Nitrite (Negative) Urine Bilirubin (Negative) Urine Urobilinogen (<2.0) mg/dL Ur Leukocyte Esterase (Negative) Urine RBC (0-5) /hpf Urine WBC (0-5) /hpf Ur Squamous Epith Cells (0-4) /hpf Calcium Oxalate Crystal (None) /hpf Urine Bacteria (None) /hpf Hyaline Casts (0-2) /lpf Urine Mucus (None) /hpf Coronavirus (PCR) (Not Detectd) 12/09/20 12/09/20 Range/Units 06:12 07:45 WBC (3.8-10.6) k/uL RBC (4.30-5.90) m/uL Hgb (13.0-17.5) gm/dL Hct (39.0-53.0) % MCV (80.0-100.0) fL MCH (25.0-35.0) pg MCHC (31.0-37.0) g/dL RDW (11.5-15.5) % Plt Count (150-450) k/uL MPV Neutrophils % % Lymphocytes % % Monocytes % % Eosinophils % % Basophils % % Neutrophils # (1.3-7.7) k/uL Lymphocytes # (1.0-4.8) k/uL Monocytes # (0-1.0) k/uL Eosinophils # (0-0.7) k/uL Basophils # (0-0.2) k/uL Hypochromasia Macrocytosis PT (9.0-12.0) sec INR (<1.2) APTT (22.0-30.0) sec Sodium (137-145) mmol/L Potassium (3.5-5.1) mmol/L Chloride (98-107) mmol/L Carbon Dioxide (22-30) mmol/L Anion Gap mmol/L BUN (9-20) mg/dL Creatinine (0.66-1.25) mg/dL Est GFR (CKD-EPI)AfAm (>60 ml/min/1.73 sqM) Est GFR (CKD-EPI)NonAf (>60 ml/min/1.73 sqM) Glucose (74-99) mg/dL Plasma Lactic Acid Lemuel (0.7-2.0) mmol/L Calcium (8.4-10.2) mg/dL Magnesium (1.6-2.3) mg/dL Total Bilirubin (0.2-1.3) mg/dL AST (17-59) U/L ALT (4-49) U/L Alkaline Phosphatase (38-126) U/L Troponin I (0.000-0.034) ng/mL NT-Pro-B Natriuret Pep 6180 pg/mL Total Protein (6.3-8.2) g/dL Albumin (3.5-5.0) g/dL TSH (0.465-4.680) mIU/L Free T4 (0.78-2.19) ng/dL Free T3 pg/mL (2.8-5.3) pg/ml Urine Color Urine Appearance (Clear) Urine pH (5.0-8.0) Ur Specific [place] (1.001-1.035) Urine Protein (Negative) Urine Glucose (UA) (Negative) Urine Ketones (Negative) Urine Blood (Negative) Urine Nitrite (Negative) Urine Bilirubin (Negative) Urine Urobilinogen (<2.0) mg/dL Ur Leukocyte Esterase (Negative) Urine RBC (0-5) /hpf Urine WBC (0-5) /hpf Ur Squamous Epith Cells (0-4) /hpf Calcium Oxalate Crystal (None) /hpf Urine Bacteria (None) /hpf Hyaline Casts (0-2) /lpf Urine Mucus (None) /hpf Coronavirus (PCR) Not Detected (Not Detectd) - Radiology Data Radiology results: report reviewed (Computed tomography scan the brain reveals no acute process), image reviewed (Chest x-ray does show cardiomegaly with prominent pulmonary vascular markings and mild diffuse increased lung markings. Consider congestive heart failure, possibly atypical pneumonia.) Disposition Clinical Impression: Weakness, Renal insufficiency, Heart failure Disposition: ADMITTED IP TO THIS HOSP Is patient prescribed a controlled substance at d/c from ED?: No Referrals: Diogenes uGillen MD [Primary Care Provider] - 1-2 days Decision Time: 09:20
[2020-12-09 06:40] LABS: Albumin 3.7 g/dL (3.5-5.0); Potassium 5.1 mmol/L (3.5-5.1); Total Bilirubin 0.5 mg/dL (0.2-1.3); Total Protein 6.5 g/dL (6.3-8.2)
[2020-12-09 06:46] LABS: INR 1.3 (<1.2); Partial Thromboplastin Time 25.1 sec (22.0-30.0); Prothrombin Time 13.2 sec (9.0-12.0)
[2020-12-09 06:51] LABS: Basophils % (A) 1 %; Eosinophils # (A) 0.1 k/uL (0-0.7); Eosinophils % (A) 2 %; HCT 31.9 % (39.0-53.0); HGB 9.9 gm/dL (13.0-17.5); Hypochromasia Slight; Lymphocytes # (A) 1.2 k/uL (1.0-4.8); Lymphocytes % (A) 25 %; MCH 30.9 pg (25.0-35.0); MCHC 30.9 g/dL (31.0-37.0); MCV 99.9 fL (80.0-100.0); Macrocytosis Slight; Mean Platelet Volume 8.2; Monocytes # (A) 0.4 k/uL (0-1.0); Monocytes % (A) 8 %; Neutrophils # (A) 3.1 k/uL (1.3-7.7); Neutrophils % (A) 64 %; Platelet Count 152 k/uL (150-450); RDW 15.2 % (11.5-15.5); WBC 4.9 k/uL (3.8-10.6)
[2020-12-09 06:59] LABS: T4, Free (Free Thyroxine) 2.37 ng/dL (0.78-2.19)
--- NOTE | 2020-12-09 07:27 | CT ---
EXAMINATION TYPE: CT brain wo con DATE OF EXAM: 12/09/2020 COMPARISON: 08/14/2020 INDICATION: AMS DLP: 1208.4 mGycm, Automated exposure control for dose reduction was used. CONTRAST: None CT of the brain is performed utilizing 3 mm thick sections through the posterior fossa and 3 mm thick sections through the remaining calvarium. Study is performed within 24 hours of arrival to the hosp ital. No abnormal hyperdensity is present to suggest an acute intracranial hemorrhage. No mass lesion is evident. No acute infarcts are evident. Ventricles and sulci are somewhat prominent for the patient age. Paranasal sinuses and mastoid air cells within the [id number] are clear. IMPRESSIONS: 1. No acute intracranial process.
[2020-12-09] MEDS ORDERED: SODIUM CHLORIDE 0.9% 500 ML 500 ML IV STA (08:01)
[2020-12-09 08:08] LABS: Appearance,Urine Cloudy (Clear); Bacteria,Urine Rare /hpf; Bilirubin,Urine Negative (Negative); Blood,Urine Negative (Negative); Calcium Oxalate Crystals,Urine Rare /hpf; Color,Urine Yellow; Glucose,Urine (UA) Negative (Negative); Hyaline Casts,Urine 34 /lpf (0-2); Ketones,Urine Negative (Negative); Leukocyte Esterase,Urine Trace (Negative); Mucus,Urine Rare /hpf; Nitrite,Urine Negative (Negative); PH, Urine 5.5 (5.0-8.0); Protein,Urine Trace (Negative); RBC,Urine 1 /hpf (0-5); Specific Gravity,Urine 1.019 (1.001-1.035); Squamous Epithelial Cell,Urine 1 /hpf (0-4); WBC,Urine 3 /hpf (0-5)
--- NOTE | 2020-12-09 08:13 | XR ---
EXAMINATION TYPE: XR chest 2V DATE OF EXAM: 12/09/2020 COMPARISON: 08/23/2020 INDICATION: Acute mental status changes TECHNIQUE: Frontal and lateral views of the chest are obtained. FINDINGS: The heart size is enlarged. The pulmonary vasculature is prominent. Mild diffuse increased lung markings are present. There is silhouetting left diaphragm. Pacemaker ove rlies left chest.. IMPRESSION: 1. Cardiomegaly with prominent pulmonary vascular markings and mild diffuse increased lung markings. Consider congestive heart failure. Atypical pneumonia could be considered.
[2020-12-09] MEDS ORDERED: ASPIRIN 325 MG TAB PO STA (09:20)
[2020-12-09] MEDS ORDERED: FUROSEMIDE 10 MG/ML 4 ML VIAL IV STA (09:22)
[2020-12-09] MEDS ORDERED: SODIUM CHLORIDE 0.9% 1,000 ML IV SCH ×2 (09:30→17:45)
--- NOTE | 2020-12-09 11:55 | P.NPCON ---
History of Present Illness - Reason for Consult acute renal failure - History of Present Illness Reason for consultation: Acute kidney injury History of present is: A slight patient is a 80-year-old male seen in consultation for acute kidney injury. Patient's creatinine in July 2020 was as low as 1.0. It is elevated at 2.15 today. Patient presented to the hospital reporting shortness of breath. Patient states he was diagnosed with pneumonia about a week ago and was taking antibiotics outpatient but does not remember the name. I do see Bactrim listed in his home medication list. Blood pressure stable. Afebrile in the hospital. He is currently on 4 L nasal cannula with oxygen saturation of 92-94%. Denies use of nonsteroidals. Chest x-ray of congestive of prominent pulmonary vascular markings. Patient does have history of CHF with ejection fraction of 30-35% with moderate to severe tricuspid regurgitation, moderate mitral regurgitation and severe pulmonary hypertension. He did receive a liter of normal saline bolus in the ER and subsequently Lasix 20 mg IV once. He tested negative for coronavirus. Denies chest pain. No abdominal pain. No edema in his lower extremities. Vital signs are stable. General: The patient appeared well nourished and normally developed. HEENT: Head exam is unremarkable. Neck is without jugular venous distension. LUNGS: Breath sounds decreased. HEART: Rate and Rhythm are regular. ABDOMEN: Soft, nontender. EXTREMITITES: No edema. Past Medical History Past Medical History: Atrial Fibrillation, Heart Failure, Deep Vein Thrombosis (DVT), GERD/Reflux, GI Bleed, Hyperlipidemia, Myocardial Infarction ([place]), Pneumonia, Prostate Disorder, Syncope Additional Past Medical History / Comment(s): Paroxysmal Afib, cardiac valve disease, cardiomyopathy, recurrent VT with AICD, lower GI bleed, UTIs, urinary retention with IDCs at times but no issues since circumcism, BPH, iron anemia, gout R foot, FALLS, gait dysturbance, epistaxis requiring transfusion in past, DVT L arm Last Myocardial Infarction Date:: 2010 History of Any Multi-Drug Resistant Organisms: None Reported Date of last positivie culture/infection: 2014 MDRO Source:: stool Past Surgical History: AICD, Cardiac Ablation, Pacemaker Additional Past Surgical History / Comment(s): 2010 dual AICD, bilateral cataract removals/lens tranplants, adult circumcism Past Anesthesia/Blood Transfusion Reactions: No Reported Reaction Additional Past Anesthesia/Blood Transfusion Reaction / Comment(s): Past blood transfusion without reaction. Type of Cardiac Device: AICD Device Placement Date:: 03/27/2017 Smoking Status: Former smoker - Past Family History Mother Family Medical History: CVA/TIA, Diabetes Mellitus Additional Family Medical History / Comment(s): Mother had "severe" diabetes and a CVA. Father Family Medical History: CVA/TIA, GI Bleed Additional Family Medical History / Comment(s): Father had a CVA Medications and Allergies Home Medications Medication Instructions Recorded Confirmed Type Cholecalciferol (Vitamin D3) 50 mcg PO HS 02/13/19 12/09/20 History [Vitamin D3] Cyanocobalamin (Vitamin B-12) 1,000 mcg PO DAILY 02/13/19 12/09/20 History [Vitamin B-12] Metoprolol Tartrate [Lopressor] 50 mg PO BID 02/13/19 12/09/20 History Potassium Chloride [Klor-Con 20] 20 meq PO BID 02/13/19 12/09/20 History Rivaroxaban [Xarelto] 20 mg PO HS 02/13/19 12/09/20 History Tamsulosin [Flomax] 0.4 mg PO HS 02/13/19 12/09/20 History Amiodarone [Cordarone] 200 mg PO BID tab 02/25/20 12/09/20 Rx Atorvastatin [Lipitor] 20 mg PO DAILY tab 02/25/20 12/09/20 Rx Escitalopram [Lexapro] 10 mg PO DAILY 08/14/20 12/09/20 History Magnesium Gluconate [Magonate] 500 mg PO HS 08/14/20 12/09/20 History allopurinoL [Zyloprim] 100 mg PO HS 08/14/20 12/09/20 History lisinopriL [Zestril] 5 mg PO DAILY #30 tab 08/23/20 12/09/20 Rx Furosemide [Lasix] 40 mg PO DAILY 12/09/20 12/09/20 History Ipratropium/Albuter 20-100Mcg 1 puff INHALATION RT-QID 12/09/20 12/09/20 History [Combivent Respimat 20-100Mcg Inhaler] Levothyroxine Sodium [Synthroid] 50 mcg PO DAILY 12/09/20 12/09/20 History Pantoprazole Sodium [Protonix] 40 mg PO DAILY 12/09/20 12/09/20 History Sildenafil [Revatio] 20 mg PO DAILY 12/09/20 12/09/20 History Sulfamethox-Tmp 800-160Mg [Bactrim 1 tab PO BID 12/09/20 12/09/20 History DS 800-160 mg] Allergies Allergy/AdvReac Type Severity Reaction Status Date / Time bee venom protein (honey bee) Allergy Anaphylaxis Verified 12/09/20 10:48 Physical Exam Vitals: Vital Signs Temp Pulse Resp BP Pulse Ox 12/09/20 09:50 70 18 108/70 92 L 12/09/20 08:18 66 18 94 L 12/09/20 06:25 93 L 12/09/20 05:48 97 F L 63 22 135/77 98 Intake and Output 12/08/20 12/09/20 12/09/20 22:59 06:59 14:59 Other: Weight 90.718 kg 90.718 kg Results - Lab Results Most recent lab results Calcium 9.0 mg/dL (8.4-10.2) 12/09/20 06:12 Magnesium 2.0 mg/dL (1.6-2.3) 12/09/20 06:12 12/09/20 06:12 12/09/20 06:12 Assessment and Plan Plan: Assessment: 1. Acute kidney injury secondary to ATN secondary to cardiorenal syndrome. Creatinine 2.15 today. He was also on Bactrim outpatient which can impair creatinine secretion. Baseline creatinine near 1. 2. Acute on chronic systolic CHF with ejection fraction of 30-35% with moderate to severe tricuspid regurgitation, moderate mitral regurgitation. 3. Severe pulmonary hypertension. 4. Acute hypoxic respiratory failure. 5. Questionable pneumonia. 6. Volume overload. Plan: I will give him an additional dose of Lasix 40 mg IV once today. Check renal ultrasound. Repeat chest x-ray tomorrow morning. Avoid nephrotoxins. Hold lisinopril. Continue to monitor renal function and urine output. Thank you for the consultation. I will continue to follow the patient with you during his hospital stay.
[2020-12-09] MEDS ORDERED: ALBUTER INHALATION SCH (12:00)
[2020-12-09] MEDS ORDERED: IPRATROPIUM INHALATION SCH (12:00)
[2020-12-09] MEDS: IPRATROPIUM-ALBUTEROL 3 ML NEB INHALATION SCH ×3 (12:26→20:01)
[2020-12-09] MEDS: ESCITALOPRAM 10 MG TAB PO SCH (13:00)
[2020-12-09] MEDS ORDERED: NITROGLYCERIN OINT 1 INCH/GM PACKET TOPICAL SCH (13:00)
[2020-12-09] MEDS: SILDENAFIL 20 MG TAB PO SCH (13:00)
[2020-12-09] MEDS: METOPROLOL TARTRATE 12.5 MG TAB PO SCH ×2 (13:00→19:59)
[2020-12-09] MEDS: CYANOCOBALAMIN 500 MCG TAB PO SCH (13:00)
--- NOTE | 2020-12-09 14:57 | US ---
EXAMINATION TYPE: US kidneys/renal and bladder DATE OF EXAM: 12/09/2020 COMPARISON: NONE CLINICAL HISTORY: christa. EXAM MEASUREMENTS: Right Kidney: 10.5 x 5.2 x 5.9cm Left Kidney: 12.1 x 5.3 x 4.9cm Post Void Residual Volume: mL Limited visualization due to body habitus and overlying bowel gas. Right Kidney: wnl as seen Left Kidney: lateral view obscured, wnl as seen Bladder: wnl There is no evidence for hydronephrosis at this point in time. No nephrolithiasis is seen. No tiffanie s are identified. The urinary bladder is anechoic. Cortical medullary differentiation is maintained. IMPRESSION: Exam is somewhat limited, no evident hydronephrosis.
[2020-12-09 15:29] VITALS: BMI 30.4
[2020-12-09] MEDS ORDERED: FUROSEMIDE 10 MG/ML 4 ML VIAL IV ONE (16:00)
[2020-12-09] MEDS ORDERED: CEFEPIME 1 GM in SODIUM CHLORIDE 0.9% 50 ML IVPB ONE (16:15)
--- NOTE | 2020-12-09 17:41 | P.HPIM ---
History of Present Illness H&P Date: 12/09/20 Chief Complaint: Weakness History of presenting complaint: This is a 80-year-old patient who follows with visiting physicians Dr. Wall. Chronic stable medical conditions include atrial fibrillation, CHF, GERD, hyperlipidemia, coronary artery disease, cardiomyopathy, AICD, BPH. Patient lives with his Dr. Baird. Normally uses Ambien walker. Patient is drinking heavily up until July 2021. And is an ex-smoker. Patient is brought into the ER for generalized weakness. Patient of the best of historians. Patient denies any cough or shortness of breath. He thinks his appetite is gone down. He states he didn't brought in because he was feeling weak and dizzy at home. Is able tonsil simple questions. He knows that he the hospital EMS brought him in and he was sent in by his daughter. Patient apparently is on home oxygen. Review of systems: GEN.: Decreased appetite tired EYES: None HEENT: None NECK: None RESPIRATORY: None CARDIOVASCULAR: None GASTROINTESTINAL: None GENITOURINARY: None MUSCULOSKELETAL: [Some joint pains LYMPHATICS: None HEMATOLOGICAL: None PSYCHIATRY: None NEUROLOGICAL: A bit forgetful, using a walker Past medical history to include: Atrial fibrillation, CHF EF 30-35%, DVT, GERD, GI bleed, hyperlipidemia, [place], cardiomyopathy, AICD, BPH doubt gait dysfunction using a walker, depression, moderate mitral regurgitation, moderate to severe tricuspid regurgitation, severe pulmonary hypertension. Home oxygen 2 L Social history: Patient is Dr. Baird lives with him. Uses [employer] walker. Patient smoked for 57 years. Stopped in 2010. Was drinking heavily up until July 2021. Physical examination: VITAL SIGNS: 97, 63, 22, 135/77, 93% on 4 L GENERAL: BMI 30.4, laying in bed, not in distress. EYES: Pupils equal. Conjunctiva normal. HEENT: External appearance of nose and ears normal, oral cavity grossly normal. NECK: JVD not raised; masses not palpable. HEART: First and second heart sounds are normal; no edema. LUNGS: Respiratory rate increased; decreased breath sounds. ABDOMEN: Soft, nontender, liver spleen not palpable, no masses palpable. PSYCH: Patient able to answer simple questionsl. MUSCULAR skeletal: Evidence of OA NEUROLOGICAL: Cranial nerves grossly intact; no facial asymmetry, power and sensation grossly intact. LYMPHATICS: No lymph nodes palpable in the axilla and neck INVESTIGATIONS, reviewed in the clinical context: WBC 4.9 hemoglobin 9.9 platelets 152 potassium 5.1 bun 43 creatinine 2.15 EKG tracing personally reviewed by me-atrial fibrillation with ST segment changes, rate of 76 Chest x-ray film personally reviewed by me-scattered infiltrates versus venous prominence CT brain: Chronic changes Ultrasound: Unremarkable Previous labs: BUN 32 creatinine 1.3 on 08/23/2020 Assessment and plan: -Possible pneumonia suspected gram-negative organism Start IV cefepime -Acute asthenia likely from acute kidney injury likely from decreased oral intake -Acute kidney injury with a creatinine going up from 1.3 up to 2.15 Hold off diuretics. Increase oral intake. Gentle hydration overnight -Persistent atrial fibrillation, rate controlled Follow telemetry, continue xarelto -Chronic congestive heart failure from systolic dysfunction EF 30-35% Follow clinically/fluid status -Chronic DVT On xarelto -GERD Continue with Protonix -Hyperlipidemia Continue with Lipitor -COPD in a previous smoker Continue with inhalers -BPH: Continue with Flomax -Chronic gout Continue with allopurinol -Essential hypertension Currently hold Zestril because of acute kidney injury Care was discussed with the patient. Cutback dose of amiodarone to 200 mg day. IV cefepime. We will gently hydrated 50 mL an hour for total less than 50 mL. PTOT. Fall precautions. Check pro-calcitonin. Repeat labs in the morning Past Medical History Past Medical History: Atrial Fibrillation, Heart Failure, Deep Vein Thrombosis (DVT), GERD/Reflux, GI Bleed, Hyperlipidemia, Myocardial Infarction ([place]), Pneumonia, Prostate Disorder, Syncope Additional Past Medical History / Comment(s): Paroxysmal Afib, cardiac valve disease, cardiomyopathy, recurrent VT with AICD, lower GI bleed, UTIs, urinary retention with IDCs at times but no issues since circumcism, BPH, iron anemia, gout R foot, FALLS, gait dysturbance, epistaxis requiring transfusion in past, DVT L arm Last Myocardial Infarction Date:: 2010 History of Any Multi-Drug Resistant Organisms: None Reported Date of last positivie culture/infection: 2014 MDRO Source:: stool Past Surgical History: AICD, Cardiac Ablation, Pacemaker Additional Past Surgical History / Comment(s): 2010 dual AICD, bilateral cataract removals/lens tranplants, adult circumcism Past Anesthesia/Blood Transfusion Reactions: No Reported Reaction Additional Past Anesthesia/Blood Transfusion Reaction / Comment(s): Past blood transfusion without reaction. Type of Cardiac Device: AICD Device Placement Date:: 03/27/2017 Past Psychological History: Depression Additional Psychological History / Comment(s): Pt has his elizabet, Brie residing with him. He states he is up and about with wheeled walker. Elizabet drives and helps manage his medications. Smoking Status: Former smoker Past Alcohol Use History: Daily, Heavy Additional Past Alcohol Use History / Comment(s): Pt started smoking in 1954 and quit in 2010. Pt states he was a heavy drinker but quit 08/16/21. Past Drug Use History: None Reported - Past Family History Mother Family Medical History: CVA/TIA, Diabetes Mellitus Additional Family Medical History / Comment(s): Mother had "severe" diabetes and a CVA. Father Family Medical History: CVA/TIA, GI Bleed Additional Family Medical History / Comment(s): Father had a CVA Medications and Allergies Home Medications Medication Instructions Recorded Confirmed Type Cholecalciferol (Vitamin D3) 50 mcg PO HS 02/13/19 12/09/20 History [Vitamin D3] Cyanocobalamin (Vitamin B-12) 1,000 mcg PO DAILY 02/13/19 12/09/20 History [Vitamin B-12] Metoprolol Tartrate [Lopressor] 50 mg PO BID 02/13/19 12/09/20 History Potassium Chloride [Klor-Con 20] 20 meq PO BID 02/13/19 12/09/20 History Rivaroxaban [Xarelto] 20 mg PO HS 02/13/19 12/09/20 History Tamsulosin [Flomax] 0.4 mg PO HS 02/13/19 12/09/20 History Amiodarone [Cordarone] 200 mg PO BID tab 02/25/20 12/09/20 Rx Atorvastatin [Lipitor] 20 mg PO DAILY tab 02/25/20 12/09/20 Rx Escitalopram [Lexapro] 10 mg PO DAILY 08/14/20 12/09/20 History Magnesium Gluconate [Magonate] 500 mg PO HS 08/14/20 12/09/20 History allopurinoL [Zyloprim] 100 mg PO HS 08/14/20 12/09/20 History lisinopriL [Zestril] 5 mg PO DAILY #30 tab 08/23/20 12/09/20 Rx Furosemide [Lasix] 40 mg PO DAILY 12/09/20 12/09/20 History Ipratropium/Albuter 20-100Mcg 1 puff INHALATION RT-QID 12/09/20 12/09/20 History [Combivent Respimat 20-100Mcg Inhaler] Levothyroxine Sodium [Synthroid] 50 mcg PO DAILY 12/09/20 12/09/20 History Pantoprazole Sodium [Protonix] 40 mg PO DAILY 12/09/20 12/09/20 History Sildenafil [Revatio] 20 mg PO DAILY 12/09/20 12/09/20 History Sulfamethox-Tmp 800-160Mg [Bactrim 1 tab PO BID 12/09/20 12/09/20 History DS 800-160 mg] Allergies Allergy/AdvReac Type Severity Reaction Status Date / Time bee venom protein (honey bee) Allergy Anaphylaxis Verified 12/09/20 10:48 Physical Exam Vitals: Vital Signs Temp Pulse Resp BP Pulse Ox 12/09/20 09:50 70 18 108/70 92 L 12/09/20 08:18 66 18 94 L 12/09/20 06:25 93 L 12/09/20 05:48 97 F L 63 22 135/77 98 Intake and Output 12/08/20 12/09/20 12/09/20 22:59 06:59 14:59 Other: Weight 90.718 kg Results CBC & Chem 7: 12/09/20 06:12 12/09/20 06:12 Labs: Abnormal Lab Results - Last 24 Hours (Table) 12/09/20 12/09/20 12/09/20 Range/Units 06:12 06:12 06:12 RBC 3.20 L (4.30-5.90) m/uL Hgb 9.9 L (13.0-17.5) gm/dL Hct 31.9 L (39.0-53.0) % MCHC 30.9 L (31.0-37.0) g/dL PT 13.2 H (9.0-12.0) sec INR 1.3 H (<1.2) Carbon Dioxide (22-30) mmol/L BUN (9-20) mg/dL Creatinine (0.66-1.25) mg/dL Glucose (74-99) mg/dL AST (17-59) U/L ALT (4-49) U/L TSH (0.465-4.680) mIU/L Free T4 (0.78-2.19) ng/dL Free T3 pg/mL (2.8-5.3) pg/ml Urine Protein Trace H (Negative) Ur Leukocyte Esterase Trace H (Negative) Calcium Oxalate Crystal Rare H (None) /hpf Urine Bacteria Rare H (None) /hpf Hyaline Casts 34 H (0-2) /lpf Urine Mucus Rare H (None) /hpf 12/09/20 Range/Units 06:12 RBC (4.30-5.90) m/uL Hgb (13.0-17.5) gm/dL Hct (39.0-53.0) % MCHC (31.0-37.0) g/dL PT (9.0-12.0) sec INR (<1.2) Carbon Dioxide 32 H (22-30) mmol/L BUN 43 H (9-20) mg/dL Creatinine 2.15 H (0.66-1.25) mg/dL Glucose 120 H (74-99) mg/dL AST 371 H (17-59) U/L ALT 407 H (4-49) U/L TSH 0.382 L (0.465-4.680) mIU/L Free T4 2.37 H (0.78-2.19) ng/dL Free T3 pg/mL 2.6 L (2.8-5.3) pg/ml Urine Protein (Negative) Ur Leukocyte Esterase (Negative) Calcium Oxalate Crystal (None) /hpf Urine Bacteria (None) /hpf Hyaline Casts (0-2) /lpf Urine Mucus (None) /hpf
[2020-12-09] MEDS: TAMSULOSIN 0.4 MG CAP.ER.24H PO SCH (19:59)
[2020-12-09] MEDS: RIVAROXABAN 20 MG TAB PO SCH (19:59)
[2020-12-09] MEDS: allopurinoL 100 MG TAB PO SCH (19:59)
[2020-12-09] MEDS: CHOLECALCIFEROL 25 MCG (1000 IU) TABLET PO SCH (19:59)
[2020-12-09] MEDS: CEFEPIME 1 GM in SODIUM CHLORIDE 0.9% 50 ML IVPB SCH (23:42)
[2020-12-10] MEDS: LEVOTHYROXINE 50 MCG TAB PO SCH (06:12)
[2020-12-10] MEDS: ATORVASTATIN 20 MG TAB PO SCH (08:32)
[2020-12-10] MEDS: AMIODARONE 200 MG TAB PO SCH (08:32)
[2020-12-10] MEDS: CYANOCOBALAMIN 500 MCG TAB PO SCH (08:32)
[2020-12-10] MEDS: METOPROLOL TARTRATE 12.5 MG TAB PO SCH ×2 (08:32→20:40)
[2020-12-10] MEDS: ESCITALOPRAM 10 MG TAB PO SCH (08:32)
[2020-12-10] MEDS: PANTOPRAZOLE 40 MG TABLET PO SCH (08:32)
[2020-12-10] MEDS: SILDENAFIL 20 MG TAB PO SCH (08:34)
[2020-12-10] MEDS: IPRATROPIUM-ALBUTEROL 3 ML NEB INHALATION SCH ×4 (08:46→19:35)
[2020-12-10] MEDS ORDERED: ASPIRIN 325 MG TAB PO SCH (09:00)
--- NOTE | 2020-12-10 09:53 | XR ---
EXAMINATION TYPE: XR chest 1V DATE OF EXAM: 12/10/2020 COMPARISON: 12/09/2020 HISTORY: 80 year-old male shortness of breath TECHNIQUE: Single frontal view of the chest is obtained. FINDINGS: Left anterior chest wall ICD generator with right atrial and ventricular leads. Heart moderately enla rged. Diffuse interstitial density and bilateral patchy airspace opacities, greatest in the right mid lung and left base. Aeration has worsened on the right. IMPRESSION: 1. Cardiomegaly and interstitial changes. Correlate to exclude CHF. 2. Airspace disease right midlung and left base. This is worsened on the right. Pulmonary edema and m ultifocal pneumonia are both considerations.
[2020-12-10 10:01] LABS: Anion Gap 10.8 mmol/L (4.00-12.00); BUN/Creat Ratio 22.78 Ratio (12.00-20.00); Calcium 9.1 mg/dL (8.7-10.3); Carbon Dioxide 29.2 mmol/L (21.6-31.8); Non-African American GFR(CKD) 34.5 (60.0-200.0); Potassium 4.6 mmol/L (3.5-5.5)
[2020-12-10] MEDS: CEFEPIME 1 GM in SODIUM CHLORIDE 0.9% 50 ML IVPB SCH (11:29)
--- NOTE | 2020-12-10 11:49 | P.PN ---
Subjective Patient is seen in follow-up for acute kidney injury. Renal function improving. Creatinine 1.8 today. Currently on 3 L nasal cannula. Nonoliguric. Oral intake here. Vital signs are stable. General: The patient appeared well nourished and normally developed. HEENT: On nasal cannula. LUNGS: Breath sounds decreased. HEART: Rate and Rhythm are regular. ABDOMEN: Soft, no distention. EXTREMITITES: No edema. Objective - Vital Signs Vital signs: Vital Signs Temp 97.5 F L 12/10/20 07:00 Pulse 68 12/10/20 08:57 Resp 18 12/10/20 08:57 BP 147/56 12/10/20 07:00 Pulse Ox 92 L 12/10/20 08:47 Intake & Output 12/09/20 12/10/20 12/10/20 18:59 06:59 18:59 Output Total 1300 300 Balance -1300 -300 Weight 90.718 kg 89.494 kg Output: Urine 1300 300 Other: Voiding Method Urinal Urinal # Voids 0 2 - Labs CBC & Chem 7: 12/09/20 06:12 12/10/20 06:01 Labs: Abnormal Lab Results - Last 24 Hours (Table) 12/10/20 Range/Units 06:01 BUN 41.0 H (9.0-27.0) mg/dL Creatinine 1.8 H (0.6-1.5) mg/dL Est GFR (CKD-EPI)AfAm 40.0 L (60.0-200.0) Est GFR (CKD-EPI)NonAf 34.5 L (60.0-200.0) BUN/Creatinine Ratio 22.78 H (12.00-20.00) Ratio Glucose 115 H (70-110) mg/dL Assessment and Plan Plan: Assessment: 1. Acute kidney injury secondary to ATN secondary to cardiorenal syndrome. Creatinine 2.15 on admission and is 1.8 today. He was also on Bactrim outpatient which can impair creatinine secretion. Baseline creatinine near 1. No evidence of hydronephrosis noted on kidney ultrasound. 2. Acute on chronic systolic CHF with ejection fraction of 30-35% with moderate to severe tricuspid regurgitation, moderate mitral regurgitation. 3. Severe pulmonary hypertension. 4. Acute hypoxic respiratory failure. 5. Questionable pneumonia. 6. Volume overload. Plan: Add Lasix 40 mg IV twice daily. Avoid nephrotoxins. Hold lisinopril. Continue to monitor renal function and urine output.
[2020-12-10] MEDS: FUROSEMIDE 10 MG/ML 4 ML VIAL IV SCH ×2 (11:54→20:40)
[2020-12-10] MEDS: allopurinoL 100 MG TAB PO SCH (20:40)
[2020-12-10] MEDS: RIVAROXABAN 20 MG TAB PO SCH (20:40)
[2020-12-10] MEDS: CHOLECALCIFEROL 25 MCG (1000 IU) TABLET PO SCH (20:40)
[2020-12-10] MEDS: TAMSULOSIN 0.4 MG CAP.ER.24H PO SCH (20:40)
--- NOTE | 2020-12-11 00:09 | P.PN ---
Progress Note - Text Progress Note Date: 12/10/20 Chief Complaint: Weakness History of presenting complaint: This is a 80-year-old patient who follows with visiting physicians Dr. Wall. Chronic stable medical conditions include atrial fibrillation, CHF, GERD, hyperlipidemia, coronary artery disease, cardiomyopathy, AICD, BPH. Patient lives with his DrAmelie Baird. Normally uses Ambien walker. Patient is drinking heavily up until July 2021. And is an ex-smoker. Patient is brought into the ER for generalized weakness. Patient of the best of historians. Patient denies any cough or shortness of breath. He thinks his appetite is gone down. He states he didn't brought in because he was feeling weak and dizzy at home. Is able to answer simple questions. He knows that he the hospital EMS brought him in and he was sent in by his daughter. Patient apparently is on home oxygen. Admitted with pneumonia, acute medical asthenia, acute kidney injury. Started IV fluids, IV cefepime. Today: Looking better. Answering questions better. Oral intake about 50%. Some cough. Review of systems: Was done for constitutional, cardiovascular, GI, pulmonary. relevant finding as above Active Medications Albuterol/Ipratropium (Ipratropium-Albuterol 3 Ml Neb) 3 ml INHALATION RT-QID [facility] Last Admin: 12/10/20 19:35 Dose: 3 ml Documented by: Allopurinol (Allopurinol 100 Mg Tab) 100 mg PO [facility] Last Admin: 12/10/20 20:40 Dose: 100 mg Documented by: Amiodarone HCl (Amiodarone 200 Mg Tab) 200 mg PO DAILY [facility] Last Admin: 12/10/20 08:32 Dose: 200 mg Documented by: Atorvastatin Calcium (Atorvastatin 20 Mg Tab) 20 mg PO DAILY [facility] Last Admin: 12/10/20 08:32 Dose: 20 mg Documented by: Cholecalciferol (Cholecalciferol 25 Mcg (1000 Iu) Tablet) 50 mcg PO [facility] Last Admin: 12/10/20 20:40 Dose: 50 mcg Documented by: Cyanocobalamin (Cyanocobalamin 500 Mcg Tab) 1,000 mcg PO DAILY [facility] Last Admin: 12/10/20 08:32 Dose: 1,000 mcg Documented by: Escitalopram Oxalate (Escitalopram 10 Mg Tab) 10 mg PO DAILY [facility] Last Admin: 12/10/20 08:32 Dose: 10 mg Documented by: Furosemide (Furosemide 10 Mg/Ml 4 Ml Vial) 40 mg IV Q12HR [facility] Last Admin: 12/10/20 20:40 Dose: 40 mg Documented by: Cefepime HCl 1 gm/ Sodium (Chloride) 50 mls @ 12.5 mls/hr IVPB Q12H [facility] Last Admin: 12/10/20 11:29 Dose: 12.5 mls/hr Documented by: Levothyroxine Sodium (Levothyroxine 50 Mcg Tab) 50 mcg PO DAILY@0630 [facility] Last Admin: 12/10/20 06:12 Dose: 50 mcg Documented by: Metoprolol Tartrate (Metoprolol Tartrate 12.5 Mg Tab) 12.5 mg PO BID [facility] Last Admin: 12/10/20 20:40 Dose: 12.5 mg Documented by: Pantoprazole Sodium (Pantoprazole 40 Mg Tablet) 40 mg PO DAILY@0730 [facility] Last Admin: 12/10/20 08:32 Dose: 40 mg Documented by: Rivaroxaban (Rivaroxaban 20 Mg Tab) 20 mg PO [facility] Last Admin: 12/10/20 20:40 Dose: 20 mg Documented by: Sildenafil Citrate (Sildenafil 20 Mg Tab) 20 mg PO DAILY [facility] Last Admin: 12/10/20 08:34 Dose: 20 mg Documented by: Tamsulosin HCl (Tamsulosin 0.4 Mg Cap.Er.24h) 0.4 mg PO [facility] Last Admin: 12/10/20 20:40 Dose: 0.4 mg Documented by: Past medical history to include: Atrial fibrillation, CHF EF 30-35%, DVT, GERD, GI bleed, hyperlipidemia, [place], cardiomyopathy, AICD, BPH doubt gait dysfunction using a walker, depression, moderate mitral regurgitation, moderate to severe tricuspid regurgitation, severe pulmonary hypertension. Home oxygen 2 L Social history: Patient is Dr. Baird lives with him. Uses [employer] walker. Patient smoked for 57 years. Stopped in 2010. Was drinking heavily up until July 2021. Physical examination: VITAL SIGNS: 8.7, 75, 20, 137/42, 94% on 3 L GENERAL: BMI 30.4, laying in bed, more awake EYES: Pupils equal. Conjunctiva normal. HEENT: External appearance of nose and ears normal, oral cavity grossly normal. NECK: JVD not raised; masses not palpable. HEART: First and second heart sounds are normal; no edema. LUNGS: Respiratory rate increased; decreased breath sounds. ABDOMEN: Soft, nontender, liver spleen not palpable, no masses palpable. PSYCH: Patient able to answer simple questionsl. MUSCULAR skeletal: Evidence of OA INVESTIGATIONS, reviewed in the clinical context: December 11: Potassium 4.6 creatinine 1.8 WBC 4.9 hemoglobin 9.9 platelets 152 potassium 5.1 bun 43 creatinine 2.15 EKG tracing personally reviewed by me-atrial fibrillation with ST segment changes, rate of 76 Chest x-ray film personally reviewed by me-scattered infiltrates versus venous prominence CT brain: Chronic changes Ultrasound: Unremarkable Previous labs: BUN 32 creatinine 1.3 on 08/23/2020 Assessment and plan: -Possible pneumonia suspected gram-negative organism IV cefepime -Acute asthenia likely from acute kidney injury likely from decreased oral intake -Acute kidney injury with a creatinine of cardiorenal syndrome IV diuretics ordered per nephrology -Persistent atrial fibrillation, rate controlled Follow telemetry, continue xarelto -Chronic congestive heart failure from systolic dysfunction EF 30-35% Follow clinically/fluid status -Chronic DVT On xarelto -GERD Continue with Protonix -Hyperlipidemia Continue with Lipitor -COPD in a previous smoker Continue with inhalers -BPH: Continue with Flomax -Chronic gout Continue with allopurinol -Essential hypertension Currently hold Zestril because of acute kidney injury Follow closely. Follow labs.
[2020-12-11] MEDS: CEFEPIME 1 GM in SODIUM CHLORIDE 0.9% 50 ML IVPB SCH ×3 (00:19→23:54)
[2020-12-11] MEDS: LEVOTHYROXINE 50 MCG TAB PO SCH (05:15)
[2020-12-11] MEDS: IPRATROPIUM-ALBUTEROL 3 ML NEB INHALATION SCH ×4 (07:38→19:56)
[2020-12-11] MEDS: FUROSEMIDE 10 MG/ML 4 ML VIAL IV SCH ×2 (09:04→21:02)
[2020-12-11] MEDS: AMIODARONE 200 MG TAB PO SCH (09:04)
[2020-12-11] MEDS: METOPROLOL TARTRATE 12.5 MG TAB PO SCH ×2 (09:04→21:02)
[2020-12-11] MEDS: PANTOPRAZOLE 40 MG TABLET PO SCH (09:04)
[2020-12-11] MEDS: ATORVASTATIN 20 MG TAB PO SCH (09:04)
[2020-12-11] MEDS: CYANOCOBALAMIN 500 MCG TAB PO SCH (09:04)
[2020-12-11] MEDS: SILDENAFIL 20 MG TAB PO SCH (09:05)
[2020-12-11] MEDS: ESCITALOPRAM 10 MG TAB PO SCH (09:05)
[2020-12-11 09:14] LABS: African American GFR (CKD) 46.1 (60.0-200.0); Anion Gap 6.3 mmol/L (4.00-12.00); BUN/Creat Ratio 21.88 Ratio (12.00-20.00); Calcium 8.9 mg/dL (8.7-10.3); Carbon Dioxide 37.7 mmol/L (21.6-31.8); Magnesium 1.8 mg/dL (1.5-2.4); Non-African American GFR(CKD) 39.8 (60.0-200.0); Potassium 4.3 mmol/L (3.5-5.5)
[2020-12-11] MEDS: guaiFENesin 600 MG TABLET.ER PO SCH ×3 (15:30→21:02)
[2020-12-11] MEDS: methylPREDNISolone SOD SUCCI 40 MG/ML 1 ML VIAL IV SCH (15:30)
--- NOTE | 2020-12-11 17:53 | PN ---
PROGRESS NOTE Patient is seen for followup for acute kidney injury. Renal function has improved with creatinine down to 1.6 from 2.1 on initial admission. The patient is currently not on any IV fluids. He is maintained on Lasix 40 mg IV q.12 hours. He has been voiding. PHYSICAL EXAMINATION: Blood pressure this morning was 134/57, heart rate of 80 per minute, patient is afebrile. Examination of the heart S1, S2. Examination of the lungs, decreased breath sounds at bases. Abdomen is soft, nontender. Examination of lower extremities shows edema 1+ bilaterally. CAN RECONDITIONER exam grossly intact. LAB: Show sodium 143, potassium 4.3, chloride 99, CO2 of 37.7, BUN 35, creatinine 1.6, hemoglobin 9.9 on 12/09/2020. ASSESSMENT: 1. Acute kidney injury, nonoliguric, ATN associated with cardiorenal syndrome, currently improving. Continue to diurese patient. The patient was on Bactrim which is currently on hold. No evidence of obstruction. UA is quite benign. 2. Acute on chronic systolic congestive heart failure. 3. Cardiomyopathy, ejection fraction 30 35% with moderate to severe tricuspid regurgitation, moderate mitral regurgitation, severe pulmonary hypertension. 4. Acute hypoxic respiratory failure, currently improved. PLAN: Continue with IV Lasix. Avoid hypotension and repeat labs in a.m. Check accurate I's and O's. MMODL / IJN: [id number] /
[2020-12-11] MEDS: FORMOTEROL FUMARATE 20 MCG/2 ML NEBU INHALATION SCH ×2 (19:14→19:56)
[2020-12-11] MEDS: BUDESONIDE 1 MG/2 ML NEBU INHALATION SCH ×2 (19:14→19:56)
[2020-12-11] MEDS: allopurinoL 100 MG TAB PO SCH (21:02)
[2020-12-11] MEDS: CHOLECALCIFEROL 25 MCG (1000 IU) TABLET PO SCH (21:03)
[2020-12-11] MEDS: RIVAROXABAN 20 MG TAB PO SCH ×2 (21:07→21:09)
[2020-12-11] MEDS: TAMSULOSIN 0.4 MG CAP.ER.24H PO SCH (21:07)
--- NOTE | 2020-12-11 23:36 | P.PN ---
Progress Note - Text Progress Note Date: 12/11/20 Chief Complaint: Weakness History of presenting complaint: This is a 80-year-old patient who follows with visiting physicians Dr. Wall. Chronic stable medical conditions include atrial fibrillation, CHF, GERD, hyperlipidemia, coronary artery disease, cardiomyopathy, AICD, BPH. Patient lives with his DrAmelie Baird. Normally uses Ambien walker. Patient is drinking heavily up until July 2021. And is an ex-smoker. Patient is brought into the ER for generalized weakness. Patient of the best of historians. Patient denies any cough or shortness of breath. He thinks his appetite is gone down. He states he didn't brought in because he was feeling weak and dizzy at home. Is able to answer simple questions. He knows that he the hospital EMS brought him in and he was sent in by his daughter. Patient apparently is on home oxygen. Admitted with pneumonia, acute medical asthenia, acute kidney injury. Started IV fluids, IV cefepime. Today: Sitting up in a chair. Wheezing. Did eat some food. Cough. Review of systems: Was done for constitutional, cardiovascular, GI, pulmonary. relevant finding as above Active Medications Albuterol/Ipratropium (Ipratropium-Albuterol 3 Ml Neb) 3 ml INHALATION RT-QID [facility] Last Admin: 12/11/20 19:56 Dose: 3 ml Documented by: Allopurinol (Allopurinol 100 Mg Tab) 100 mg PO [facility] Last Admin: 12/11/20 21:02 Dose: 100 mg Documented by: Amiodarone HCl (Amiodarone 200 Mg Tab) 200 mg PO DAILY [facility] Last Admin: 12/11/20 09:04 Dose: 200 mg Documented by: Atorvastatin Calcium (Atorvastatin 20 Mg Tab) 20 mg PO DAILY [facility] Last Admin: 12/11/20 09:04 Dose: 20 mg Documented by: Budesonide (Budesonide 1 Mg/2 Ml Nebu) 1 mg INHALATION RT-BID [facility] Last Admin: 12/11/20 19:56 Dose: 1 mg Documented by: Cholecalciferol (Cholecalciferol 25 Mcg (1000 Iu) Tablet) 50 mcg PO [facility] Last Admin: 12/11/20 21:03 Dose: 50 mcg Documented by: Cyanocobalamin (Cyanocobalamin 500 Mcg Tab) 1,000 mcg PO DAILY [facility] Last Admin: 12/11/20 09:04 Dose: 1,000 mcg Documented by: Escitalopram Oxalate (Escitalopram 10 Mg Tab) 10 mg PO DAILY [facility] Last Admin: 12/11/20 09:05 Dose: 10 mg Documented by: Formoterol Fumarate (Formoterol Fumarate 20 Mcg/2 Ml Nebu) 20 mcg INHALATION RT-BID [facility] Last Admin: 12/11/20 19:56 Dose: 20 mcg Documented by: Furosemide (Furosemide 10 Mg/Ml 4 Ml Vial) 40 mg IV Q12HR [facility] Last Admin: 12/11/20 21:02 Dose: 40 mg Documented by: Guaifenesin (Guaifenesin 600 Mg Tablet.Er) 600 mg PO QID [facility] Last Admin: 12/11/20 21:02 Dose: 600 mg Documented by: Cefepime HCl 1 gm/ Sodium (Chloride) 50 mls @ 12.5 mls/hr IVPB Q12H [facility] Last Admin: 12/11/20 12:42 Dose: 12.5 mls/hr Documented by: Levothyroxine Sodium (Levothyroxine 50 Mcg Tab) 50 mcg PO DAILY@0630 [facility] Last Admin: 12/11/20 05:15 Dose: 50 mcg Documented by: Methylprednisolone Sodium Succinate (Methylprednisolone Sod Succi 40 Mg/Ml 1 Ml Vial) 40 mg IV Q8HR [facility] Last Admin: 12/11/20 15:30 Dose: 40 mg Documented by: Metoprolol Tartrate (Metoprolol Tartrate 12.5 Mg Tab) 12.5 mg PO BID [facility] Last Admin: 12/11/20 21:02 Dose: 12.5 mg Documented by: Pantoprazole Sodium (Pantoprazole 40 Mg Tablet) 40 mg PO DAILY@0730 [facility] Last Admin: 12/11/20 09:04 Dose: 40 mg Documented by: Rivaroxaban (Rivaroxaban 20 Mg Tab) 20 mg PO [facility] Last Admin: 12/11/20 21:09 Dose: 20 mg Documented by: Sildenafil Citrate (Sildenafil 20 Mg Tab) 20 mg PO DAILY [facility] Last Admin: 12/11/20 09:05 Dose: 20 mg Documented by: Tamsulosin HCl (Tamsulosin 0.4 Mg Cap.Er.24h) 0.4 mg PO [facility] Last Admin: 12/11/20 21:07 Dose: 0.4 mg Documented by: Past medical history to include: Atrial fibrillation, CHF EF 30-35%, DVT, GERD, GI bleed, hyperlipidemia, [place], cardiomyopathy, AICD, BPH doubt gait dysfunction using a walker, depression, moderate mitral regurgitation, moderate to severe tricuspid regurgitation, severe pulmonary hypertension. Home oxygen 2 L Social history daughter Brie lives with him. Uses [employer] walker. Patient smoked for 57 years. Stopped in 2010. Was drinking heavily up until July 2021. Physical examination: VITAL SIGNS: 99, 78, 18, 93 with 42, 95% on 3 L GENERAL: Sitting up in a chair, reclining EYES: Pupils equal. Conjunctiva normal. HEENT: External appearance of nose and ears normal, oral cavity grossly normal. NECK: JVD not raised; masses not palpable. HEART: First and second heart sounds are normal; no edema. LUNGS: Respiratory rate increased; decreased breath sounds. Wheezing, prolonged expiration ABDOMEN: Soft, nontender, liver spleen not palpable, no masses palpable. PSYCH: Patient able to answer simple questionsl. MUSCULAR skeletal: Evidence of OA INVESTIGATIONS, reviewed in the clinical context: December 11: Potassium 4.3 creatinine 1.6 December 10: Potassium 4.6 creatinine 1.8 WBC 4.9 hemoglobin 9.9 platelets 152 potassium 5.1 bun 43 creatinine 2.15 EKG tracing personally reviewed by me-atrial fibrillation with ST segment changes, rate of 76 Chest x-ray film personally reviewed by me-scattered infiltrates versus venous prominence CT brain: Chronic changes Ultrasound: Unremarkable Previous labs: BUN 32 creatinine 1.3 on 08/23/2020 Assessment and plan: -Possible pneumonia suspected gram-negative organism IV cefepime -Acute asthenia likely from acute kidney injury likely from decreased oral intake -Acute kidney injury with a creatinine of cardiorenal syndrome IV diuretics -Persistent atrial fibrillation, rate controlled Follow telemetry, continue xarelto -Chronic congestive heart failure from systolic dysfunction EF 30-35% Follow clinically/fluid status -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 Medications added for COPD exacerbation.
[2020-12-12] MEDS: methylPREDNISolone SOD SUCCI 40 MG/ML 1 ML VIAL IV SCH ×4 (00:21→23:46)
[2020-12-12] MEDS: LEVOTHYROXINE 50 MCG TAB PO SCH (06:14)
[2020-12-12] MEDS: FORMOTEROL FUMARATE 20 MCG/2 ML NEBU INHALATION SCH ×2 (08:00→19:20)
[2020-12-12] MEDS: IPRATROPIUM-ALBUTEROL 3 ML NEB INHALATION SCH ×4 (08:00→19:20)
[2020-12-12] MEDS: BUDESONIDE 1 MG/2 ML NEBU INHALATION SCH ×2 (08:00→19:20)
[2020-12-12] MEDS: PANTOPRAZOLE 40 MG TABLET PO SCH (09:45)
[2020-12-12] MEDS: METOPROLOL TARTRATE 12.5 MG TAB PO SCH ×3 (09:45→22:04)
[2020-12-12] MEDS: ATORVASTATIN 20 MG TAB PO SCH (09:45)
[2020-12-12] MEDS: FUROSEMIDE 10 MG/ML 4 ML VIAL IV SCH ×3 (09:45→22:03)
[2020-12-12] MEDS: AMIODARONE 200 MG TAB PO SCH (09:46)
[2020-12-12] MEDS: guaiFENesin 600 MG TABLET.ER PO SCH ×4 (09:46→20:44)
[2020-12-12] MEDS: SILDENAFIL 20 MG TAB PO SCH (09:46)
[2020-12-12] MEDS: ESCITALOPRAM 10 MG TAB PO SCH (09:46)
[2020-12-12] MEDS: CYANOCOBALAMIN 500 MCG TAB PO SCH (09:46)
[2020-12-12] MEDS: CEFEPIME 1 GM in SODIUM CHLORIDE 0.9% 50 ML IVPB SCH (12:39)
--- NOTE | 2020-12-12 12:53 | PN ---
PROGRESS NOTE Patient is seen for followup for acute kidney injury. Renal function has been improving. No significant complaints. PHYSICAL EXAMINATION: On examination today, blood pressure was 130/55, heart rate 76 per minute. He is afebrile. Examination of the heart S1, S2. Examination of the lungs, decreased breath sounds at bases. Abdomen is soft, nontender. Examination of lower extremities no significant edema. LAB: Show sodium 143, potassium 4.3, chloride 99, CO2 37.7, BUN 35, creatinine 1.6 yesterday on 12/11/2020. ASSESSMENT: 1. Acute kidney injury ATN associated with cardiorenal syndrome and currently improving. Patient is also on Bactrim, currently on hold. UA is benign. No evidence of obstruction on ultrasound. 2. Cardiomyopathy EF 30-35 percent with moderate to severe tricuspid regurgitation, moderate mitral regurgitation, severe pulmonary hypertension. 3. Acute hypoxic respiratory failure, currently improved. 4. Acute on chronic systolic congestive heart failure, improving. PLAN: Continue with the IV Lasix. MMODL / IJN: [id number] /
[2020-12-12] MEDS: CEFEPIME 2 GM in SODIUM CHLORIDE 0.9% 100 ML IVPB SCH (13:42)
[2020-12-12] MEDS: TAMSULOSIN 0.4 MG CAP.ER.24H PO SCH (20:44)
[2020-12-12] MEDS: allopurinoL 100 MG TAB PO SCH (20:44)
[2020-12-12] MEDS: CHOLECALCIFEROL 25 MCG (1000 IU) TABLET PO SCH (20:44)
--- NOTE | 2020-12-12 23:18 | P.PN ---
Progress Note - Text Progress Note Date: 12/12/20 Chief Complaint: Weakness History of presenting complaint: This is a 80-year-old patient who follows with visiting physicians Dr. Wall. Chronic stable medical conditions include atrial fibrillation, CHF, GERD, hyperlipidemia, coronary artery disease, cardiomyopathy, AICD, BPH. Patient lives with his DrAmelie Baird. Normally uses Ambien walker. Patient is drinking heavily up until July 2021. And is an ex-smoker. Patient is brought into the ER for generalized weakness. Patient of the best of historians. Patient denies any cough or shortness of breath. He thinks his appetite is gone down. He states he didn't brought in because he was feeling weak and dizzy at home. Is able to answer simple questions. He knows that he the hospital EMS brought him in and he was sent in by his daughter. Patient apparently is on home oxygen. Admitted with pneumonia, acute medical asthenia, acute kidney injury. , IV cefepime. Acute CHF. IV Lasix Also treated for COPD exacerbation with bronchodilators steroids. Acute kidney injury from cardiorenal syndrome. Given IV Lasix. Creatinine improved from 2.15 down to 1.6 Today: Breathing better. A bit less short of breath. Less wheezing. Eating about 75%. Sitting up in a chair Review of systems: Was done for constitutional, cardiovascular, GI, pulmonary. relevant finding as above Active Medications Albuterol/Ipratropium (Ipratropium-Albuterol 3 Ml Neb) 3 ml INHALATION RT-QID [facility] Last Admin: 12/12/20 19:20 Dose: 3 ml Documented by: Allopurinol (Allopurinol 100 Mg Tab) 100 mg PO [facility] Last Admin: 12/12/20 20:44 Dose: 100 mg Documented by: Amiodarone HCl (Amiodarone 200 Mg Tab) 200 mg PO DAILY [facility] Last Admin: 12/12/20 09:46 Dose: 200 mg Documented by: Atorvastatin Calcium (Atorvastatin 20 Mg Tab) 20 mg PO DAILY [facility] Last Admin: 12/12/20 09:45 Dose: 20 mg Documented by: Budesonide (Budesonide 1 Mg/2 Ml Nebu) 1 mg INHALATION RT-BID [facility] Last Admin: 12/12/20 19:20 Dose: 1 mg Documented by: Cholecalciferol (Cholecalciferol 25 Mcg (1000 Iu) Tablet) 50 mcg PO [facility] Last Admin: 12/12/20 20:44 Dose: 50 mcg Documented by: Cyanocobalamin (Cyanocobalamin 500 Mcg Tab) 1,000 mcg PO DAILY [facility] Last Admin: 12/12/20 09:46 Dose: 1,000 mcg Documented by: Escitalopram Oxalate (Escitalopram 10 Mg Tab) 10 mg PO DAILY [facility] Last Admin: 12/12/20 09:46 Dose: 10 mg Documented by: Formoterol Fumarate (Formoterol Fumarate 20 Mcg/2 Ml Nebu) 20 mcg INHALATION RT-BID [facility] Last Admin: 12/12/20 19:20 Dose: 20 mcg Documented by: Furosemide (Furosemide 10 Mg/Ml 4 Ml Vial) 40 mg IV Q12HR [facility] Last Admin: 12/12/20 22:03 Dose: Not Given Documented by: Guaifenesin (Guaifenesin 600 Mg Tablet.Er) 600 mg PO QID [facility] Last Admin: 12/12/20 20:44 Dose: 600 mg Documented by: Cefepime HCl 2 gm/ Sodium (Chloride) 100 mls @ 25 mls/hr IVPB Q12H [facility] Last Admin: 12/12/20 13:42 Dose: 25 mls/hr Documented by: Levothyroxine Sodium (Levothyroxine 50 Mcg Tab) 50 mcg PO DAILY@0630 [facility] Last Admin: 12/12/20 06:14 Dose: 50 mcg Documented by: Methylprednisolone Sodium Succinate (Methylprednisolone Sod Succi 40 Mg/Ml 1 Ml Vial) 40 mg IV Q8HR [facility] Last Admin: 12/12/20 15:40 Dose: 40 mg Documented by: Metoprolol Tartrate (Metoprolol Tartrate 12.5 Mg Tab) 12.5 mg PO BID [facility] Last Admin: 12/12/20 22:04 Dose: Not Given Documented by: Pantoprazole Sodium (Pantoprazole 40 Mg Tablet) 40 mg PO DAILY@0730 [facility] Last Admin: 12/12/20 09:45 Dose: 40 mg Documented by: Rivaroxaban (Rivaroxaban 20 Mg Tab) 20 mg PO [facility] Last Admin: 12/11/20 21:09 Dose: 20 mg Documented by: Sildenafil Citrate (Sildenafil 20 Mg Tab) 20 mg PO DAILY [facility] Last Admin: 12/12/20 09:46 Dose: 20 mg Documented by: Tamsulosin HCl (Tamsulosin 0.4 Mg Cap.Er.24h) 0.4 mg PO HS [facility] Last Admin: 12/12/20 20:44 Dose: 0.4 mg Documented by: Past medical history to include: Atrial fibrillation, CHF EF 30-35%, DVT, GERD, GI bleed, hyperlipidemia, [place], cardiomyopathy, AICD, BPH doubt gait dysfunction using a walker, depression, moderate mitral regurgitation, moderate to severe tricuspid regurgitation, severe pulmonary hypertension. Home oxygen 2 L Social history daughter Brie lives with him. Uses [employer] walker. Patient smoked for 57 years. Stopped in 2010. Was drinking heavily up until July 2021. Physical examination: VITAL SIGNS: 98.1, 64, 18, 1 25 x 55, 95%-on 4 L GENERAL: Sitting up in a chair, reclining EYES: Pupils equal. Conjunctiva normal. HEENT: External appearance of nose and ears normal, oral cavity grossly normal. NECK: JVD not raised; masses not palpable. HEART: First and second heart sounds are normal; no edema. LUNGS: Respiratory rate increased; decreased breath sounds. Decreased wheezing ABDOMEN: Soft, nontender, liver spleen not palpable, no masses palpable. PSYCH: Patient able to answer simple questionsl. MUSCULAR skeletal: Evidence of OA INVESTIGATIONS, reviewed in the clinical context: December 11: Potassium 4.3 creatinine 1.6 December 10: Potassium 4.6 creatinine 1.8 WBC 4.9 hemoglobin 9.9 platelets 152 potassium 5.1 bun 43 creatinine 2.15 EKG tracing personally reviewed by me-atrial fibrillation with ST segment changes, rate of 76 Chest x-ray film personally reviewed by me-scattered infiltrates versus venous prominence CT brain: Chronic changes Ultrasound: Unremarkable Previous labs: BUN 32 creatinine 1.3 on 08/23/2020 Assessment and plan: -Possible pneumonia suspected gram-negative organism IV cefepime -Acute asthenia likely from acute kidney injury likely from decreased oral intake-improving -Acute kidney injury with a creatinine of cardiorenal syndrome IV diuretics improving. Creatinine 2.15 down to 1.6 -Persistent atrial fibrillation, rate controlled Follow telemetry, continue xarelto -Acute on Chronic congestive heart failure from systolic dysfunction EF 30-35%, exacerbation Follow clinically/fluid status. IV Lasix -Chronic DVT On xarelto -GERD Continue with Protonix -Hyperlipidemia Continue with Lipitor -Acute COPD exacerbation in a previous smoker- *Nebulized bronchodilators, IV Solu-Medrol, inhaled steroids, inhaled long- acting beta agonist -BPH: Continue with Flomax -Chronic gout Continue with allopurinol -Essential hypertension Currently hold Zestril because of acute kidney injury Discussed with the patient. Check CMP in the morning.
[2020-12-13] MEDS: CEFEPIME 2 GM in SODIUM CHLORIDE 0.9% 100 ML IVPB SCH ×2 (02:51→12:37)
[2020-12-13] MEDS: LEVOTHYROXINE 50 MCG TAB PO SCH (06:07)
[2020-12-13 06:11] LABS: ALT 386 U/L (4-49); AST 135 U/L (17-59); African American GFR (CKD) 51 (>60 ml/min/1.73 sqM); Albumin 3.1 g/dL (3.5-5.0); Albumin/Globulin Ratio 1.1; Alkaline Phosphatase 58 U/L (38-126); Blood Urea Nitrogen 50 mg/dL (9-20); Calcium 8.9 mg/dL (8.4-10.2); Chloride 96 mmol/L (98-107); Globulin 2.9 g/dL; Glucose 142 mg/dL (74-99); Non-African American GFR(CKD) 45 (>60 ml/min/1.73 sqM); Potassium 4.2 mmol/L (3.5-5.1); Sodium 140 mmol/L (137-145); Total Bilirubin 0.5 mg/dL (0.2-1.3)
[2020-12-13 06:18] LABS: Anion Gap 9 mmol/L; Carbon Dioxide 35 mmol/L (22-30)
[2020-12-13] MEDS: CEFEPIME 1 GM in SODIUM CHLORIDE 0.9% 50 ML IVPB SCH (06:42)
[2020-12-13 07:15] VITALS: RESP 16
[2020-12-13] MEDS: METOPROLOL TARTRATE 12.5 MG TAB PO SCH (07:15)
[2020-12-13] MEDS: ESCITALOPRAM 10 MG TAB PO SCH (07:16)
[2020-12-13] MEDS: PANTOPRAZOLE 40 MG TABLET PO SCH (07:16)
[2020-12-13] MEDS: CYANOCOBALAMIN 500 MCG TAB PO SCH (07:16)
[2020-12-13] MEDS: guaiFENesin 600 MG TABLET.ER PO SCH ×2 (07:16→12:37)
[2020-12-13] MEDS: SILDENAFIL 20 MG TAB PO SCH (07:16)
[2020-12-13] MEDS: AMIODARONE 200 MG TAB PO SCH (07:16)
[2020-12-13] MEDS: ATORVASTATIN 20 MG TAB PO SCH (07:16)
[2020-12-13] MEDS: FUROSEMIDE 10 MG/ML 4 ML VIAL IV SCH (07:16)
[2020-12-13] MEDS: methylPREDNISolone SOD SUCCI 40 MG/ML 1 ML VIAL IV SCH ×2 (07:17→15:16)
--- NOTE | 2020-12-13 08:36 | XR ---
EXAMINATION TYPE: XR chest 2V DATE OF EXAM: 12/13/2020 COMPARISON: 12/10/2020 HISTORY: 80-year-old male follow-up CHF/pneumonia TECHNIQUE: AP and lateral views FINDINGS: Left anterior chest wall AICD generator with right atrial and ventricular leads. Heart mildly enlarge d. Interstitial changes remain areas of patchy airspace opacity such as throughout the right lung alexey ws improvement. Retrocardiac opacity and suspected small to moderate effusion persist on the left. IMPRESSION: Airspace disease/pulmonary edema on the right shows improvement. Cardiomegaly with small to moderate left effusion and adjacent atelectasis and/or consolidation remains.
[2020-12-13] MEDS: FORMOTEROL FUMARATE 20 MCG/2 ML NEBU INHALATION SCH (08:48)
[2020-12-13] MEDS: BUDESONIDE 1 MG/2 ML NEBU INHALATION SCH (08:49)
[2020-12-13] MEDS: IPRATROPIUM-ALBUTEROL 3 ML NEB INHALATION SCH ×3 (08:49→15:37)
[2020-12-13 14:41] VITALS: BP 108/50; TEMP 98.6
--- NOTE | 2020-12-13 15:38 | P.DS ---
Providers Date of admission: 12/10/20 09:26 Expected date of discharge: 12/13/20 Attending physician: Jori Garcia Consults: 12/09/20 09:20 Consult Physician Routine Consulting Provider: Mariano Tellez Consult Reason/Comments: renal insufficency Do you want consulting provider notified?: Yes Primary care physician: Diogenes Wall MD Hospital Course: Chief Complaint: Weakness History of presenting complaint: This is a 80-year-old patient who follows with visiting physicians Dr. Wall. Chronic stable medical conditions include atrial fibrillation, CHF, GERD, hyperlipidemia, coronary artery disease, cardiomyopathy, AICD, BPH. Patient lives with his DrAmelie Baird. Normally uses Ambien walker. Patient is drinking heavily up until July 2021. And is an ex-smoker. Patient is brought into the ER for generalized weakness. Patient of the best of historians. Patient denies any cough or shortness of breath. He thinks his appetite is gone down. He states he didn't brought in because he was feeling weak and dizzy at home. Is able to answer simple questions. He knows that he the hospital EMS brought him in and he was sent in by his daughter. Patient apparently is on home oxygen. Admitted with pneumonia, acute medical asthenia, acute kidney injury. , IV cefepime. Acute CHF. IV Lasix Also treated for COPD exacerbation with bronchod ilators steroids. Acute kidney injury from cardiorenal syndrome. Given IV Lasix. Creatinine improved from 2.15 down to 1.46. Breathing improved. Today: Feeling better. Eating better. 96% on 3 L. Patient admitted to inpatient rehab. Discussed with the patient. Discussion and discharge planning more than 35 minutes Consultation: Dr. Monroy from nephrology Past medical history to include: Atrial fibrillation, CHF EF 30-35%, DVT, GERD, GI bleed, hyperlipidemia, [place], cardiomyopathy, AICD, BPH doubt gait dysfunction using a walker, depression, moderate mitral regurgitation, moderate to severe tricuspid regurgitation, severe pulmonary hypertension. Home oxygen 2 L Social history daughter Brie lives with him. Uses [employer] walker. Patient smoked for 57 years. Stopped in 2010. Was drinking heavily up until July 2021. Physical examination: VITAL SIGNS: 97.6, 68, 16, 139 with 68, 96% on 3 L GENERAL: Sitting up in bed, breathing better EYES: Pupils equal. Conjunctiva normal. HEENT: External appearance of nose and ears normal, oral cavity grossly normal. NECK: JVD not raised; masses not palpable. HEART: First and second heart sounds are normal; no edema. LUNGS: Respiratory rate increased; decreased breath sounds. ABDOMEN: Soft, nontender, liver spleen not palpable, no masses palpable. PSYCH: Answering questions appropriately MUSCULAR skeletal: Evidence of OA INVESTIGATIONS, reviewed in the clinical context: December 13: Potassium 4.2 bun 50 creatinine 1.46 AST 135 ALT 386 December 11: Potassium 4.3 creatinine 1.6 December 10: Potassium 4.6 creatinine 1.8 WBC 4.9 hemoglobin 9.9 platelets 152 potassium 5.1 bun 43 creatinine 2.15 EKG tracing personally reviewed by me-atrial fibrillation with ST segment changes, rate of 76 Chest x-ray film personally reviewed by me-scattered infiltrates versus venous prominence CT brain: Chronic changes Ultrasound: Unremarkable Previous labs: BUN 32 creatinine 1.3 on 08/23/2020 Assessment and plan: -Possible pneumonia suspected gram-negative organism IV cefepime-switching over to Ceftin -Acute asthenia likely from acute kidney injury likely from decreased oral intake-improving Inpatient rehab -Acute kidney injury with a creatinine of cardiorenal syndrome IV diuretics improving. Creatinine 2.15 down to 1.46 -Persistent atrial fibrillation, rate controlled Follow telemetry, continue xarelto -Acute on Chronic congestive heart failure from systolic dysfunction EF 30-35%, exacerbation Follow clinically/fluid status. IV Lasix. Change to Lasix 60 mg twice daily -Chronic DVT On xarelto -GERD Continue with Protonix -Hyperlipidemia Continue with Lipitor -Acute COPD exacerbation in a previous smoker- *Nebulized bronchodilators, IV Solu-Medrol, inhaled steroids, inhaled long- acting beta agonist. Change to steroid taper -BPH: Continue with Flomax -Chronic gout Continue with allopurinol -Essential hypertension Currently hold Zestril because blood pressure running on the relatively low side. 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 Improving Disposition: ECF Labs: CBC, CMP-3 days Plan - Discharge Summary Discharge Rx Participant: No New Discharge Prescriptions: New predniSONE 10 mg PO DAILY #30 tab Levothyroxine Sodium [Synthroid] 25 mcg PO DAILY@0630 tab Cefuroxime Axetil [Ceftin] 500 mg PO BID #10 tab Ipratropium-Albuterol Nebulize [Duoneb 0.5 mg-3 mg/3 ml Soln] 3 ml INHALATION RT-QID ml guaiFENesin [Mucinex] 600 mg PO TID tablet.er Budesonide [Pulmicort] 1 mg INHALATION RT-BID ml Continue Cyanocobalamin (Vitamin B-12) [Vitamin B-12] 1,000 mcg PO DAILY Tamsulosin [Flomax] 0.4 mg PO HS Rivaroxaban [Xarelto] 20 mg PO HS Metoprolol Tartrate [Lopressor] 50 mg PO BID Potassium Chloride [Klor-Con 20] 20 meq PO BID Cholecalciferol (Vitamin D3) [Vitamin D3] 50 mcg PO HS Atorvastatin [Lipitor] 20 mg PO DAILY tab allopurinoL [Zyloprim] 100 mg PO HS Escitalopram [Lexapro] 10 mg PO DAILY Magnesium Gluconate [Magonate] 500 mg PO HS Pantoprazole Sodium [Protonix] 40 mg PO DAILY Sildenafil [Revatio] 20 mg PO DAILY Changed Amiodarone [Cordarone] 200 mg PO DAILY #0 tab Furosemide [Lasix] 60 mg PO BID #0 Discontinued lisinopriL [Zestril] 5 mg PO DAILY #30 tab Ipratropium/Albuter 20-100Mcg [Combivent Respimat 20-100Mcg Inhaler] 1 puff INHALATION RT-QID Levothyroxine Sodium [Synthroid] 50 mcg PO DAILY Sulfamethox-Tmp 800-160Mg [Bactrim DS 800-160 mg] 1 tab PO BID Discharge Medication List Cholecalciferol (Vitamin D3) [Vitamin D3] 50 mcg PO HS 02/13/19 [History] Cyanocobalamin (Vitamin B-12) [Vitamin B-12] 1,000 mcg PO DAILY 02/13/19 [History] Metoprolol Tartrate [Lopressor] 50 mg PO BID 02/13/19 [History] Potassium Chloride [Klor-Con 20] 20 meq PO BID 02/13/19 [History] Rivaroxaban [Xarelto] 20 mg PO HS 02/13/19 [History] Tamsulosin [Flomax] 0.4 mg PO HS 02/13/19 [History] Atorvastatin [Lipitor] 20 mg PO DAILY tab 02/25/20 [Rx] Escitalopram [Lexapro] 10 mg PO DAILY 08/14/20 [History] Magnesium Gluconate [Magonate] 500 mg PO HS 08/14/20 [History] allopurinoL [Zyloprim] 100 mg PO HS 08/14/20 [History] Pantoprazole Sodium [Protonix] 40 mg PO DAILY 12/09/20 [History] Sildenafil [Revatio] 20 mg PO DAILY 12/09/20 [History] Amiodarone [Cordarone] 200 mg PO DAILY #0 tab 12/13/20 [Rx] Budesonide [Pulmicort] 1 mg INHALATION RT-BID ml 12/13/20 [Rx] Cefuroxime Axetil [Ceftin] 500 mg PO BID #10 tab 12/13/20 [Rx] Furosemide [Lasix] 60 mg PO BID #0 12/13/20 [Rx] Ipratropium-Albuterol Nebulize [Duoneb 0.5 mg-3 mg/3 ml Soln] 3 ml INHALATION RT-QID ml 12/13/20 [Rx] Levothyroxine Sodium [Synthroid] 25 mcg PO DAILY@0630 tab 12/13/20 [Rx] guaiFENesin [Mucinex] 600 mg PO TID tablet.er 12/13/20 [Rx] predniSONE 10 mg PO DAILY #30 tab 12/13/20 [Rx] Follow up Appointment(s)/Referral(s): Diogenes Wall MD [Primary Care Provider] - As Needed
[2020-12-13 15:45] VITALS: PULSE 76
--- NOTE | 2020-12-13 18:18 | PN ---
PROGRESS NOTE Patient is seen for followup for acute kidney injury. Renal function has been improving; creatinine down to 1.4 today. Patient is maintained on Lasix 40 mg IV q.12 hours. He has had good urine output. PHYSICAL EXAMINATION: On examination today, blood pressure was 108/50, heart rate of 82 per minute. He is afebrile. Examination of lower extremities shows 1+ edema. FINISH SPECIALIST exam grossly intact. LABS: Sodium of 140, potassium 4.2, chloride 96, BUN 50, creatinine 1.46. ASSESSMENT: 1. Acute kidney injury, currently improved. 2. Cardiomyopathy; ejection fraction 30% to 35%, with severe tricuspid regurgitation, moderate mitral regurgitation and severe pulmonary hypertension. 3. Acute on chronic systolic congestive heart failure, currently improving. PLAN: Switch to p.o. diuretics at the time of discharge. Patient was on 60 mg p.o. b.i.d. at home and he can continue the same dose. MMODL / IJN: [id number] /
[2020-12-14] MEDS ORDERED: LEVOTHYROXINE 25 MCG TAB PO SCH (06:30)
== END 2020-12-13 17:03 | DRG 177 ==
LOC: SUPCPDRO 05:46 → EC 05:46 → 6NMEDSUR 09:20 → OBSVTOIN 12-10 09:26
PROVIDERS: ADMIT Hospitalist; ATTEND Hospitalist
DX: J15.6 Pneumonia due to other Gram-negative bacteria (principal); J96.01 Acute respiratory failure with hypoxia; I50.23 Acute on chronic systolic (congestive) heart failure; N17.0 Acute kidney failure with tubular necrosis; I13.0 Hypertensive heart and chronic kidney disease with heart failure and stage 1 through stage 4 chronic kidney disease, or unspecified chronic kidney disease; I42.9 Cardiomyopathy, unspecified; I48.19 Other persistent atrial fibrillation; J44.0 Chronic obstructive pulmonary disease with (acute) lower respiratory infection; J44.1 Chronic obstructive pulmonary disease with (acute) exacerbation; I82.722 Chronic embolism and thrombosis of deep veins of left upper extremity; Z87.891 Personal history of nicotine dependence; E78.5 Hyperlipidemia, unspecified; F32.9 Major depressive disorder, single episode, unspecified; I08.1 Rheumatic disorders of both mitral and tricuspid valves; I25.10 Atherosclerotic heart disease of native coronary artery without angina pectoris; I25.2 Old myocardial infarction; I27.20 Pulmonary hypertension, unspecified; K21.9 Gastro-esophageal reflux disease without esophagitis; K75.89 Other specified inflammatory liver diseases; M1A.9XX0 Chronic gout, unspecified, without tophus (tophi); N18.9 Chronic kidney disease, unspecified; N40.0 Benign prostatic hyperplasia without lower urinary tract symptoms; Z20.822 Contact with and (suspected) exposure to COVID-19; Z79.01 Long term (current) use of anticoagulants; Z99.81 Dependence on supplemental oxygen; R26.9 Unspecified abnormalities of gait and mobility; F10.11 Alcohol abuse, in remission; Z79.890 Hormone replacement therapy; Z79.899 Other long term (current) drug therapy; Z82.3 Family history of stroke; Z83.3 Family history of diabetes mellitus; Z83.79 Family history of other diseases of the digestive system; Z91.81 History of falling; Z98.42 Cataract extraction status, left eye; Z98.41 Cataract extraction status, right eye; Z96.1 Presence of intraocular lens; Z87.01 Personal history of pneumonia (recurrent); Z87.440 Personal history of urinary (tract) infections; Z91.030 Bee allergy status; R53.1 Weakness; Z95.810 Presence of automatic (implantable) cardiac defibrillator
CPT/HCPCS: 36415; 70450; 71045; 71046; 76770; 80048; 80053; 81001; 83605; 83735; 83880; 84145; 84439; 84443; 84481; 84484; 85025; 85610; 85730; 87635; 93005; 94640; 94760; 96360; 99285

== ENCOUNTER 2021-01-01 10:32 | Inpatient (IN) | payer MEDICARE ==
--- NOTE | 2021-01-01 11:02 | ED ---
General Adult HPI - General Chief complaint: Shortness of Breath Stated complaint: SOB Time Seen by Provider: 01/01/21 10:40 Source: patient, RN notes reviewed, old records reviewed Mode of arrival: EMS Limitations: no limitations - History of Present Illness Initial comments: This is an 80-year-old male who presents emergency department with past medical history significant for COPD. Patient states she also has atrial fibrillation. Patient states 3 weeks ago was diagnosed with pneumonia admitted to the hospital and he was discharged on antibiotics and he finished antibiotics home. Patient states about 34 days ago started having some difficulty breathing and the difficulty breathing is gotten progressively worse per patient states she doesn't feel as though he can't expand his lungs fully. Patient states she's also coughing quite a bit more. Patient denies any known history of fever or chills. Patient denies any chest pain or palpitations. Patient denies lightheadedness or dizziness. Patient denies any abdominal pain patient denies nausea vomiting diarrhea. Patient denies any leg swelling or calf tenderness. - Related Data Home Medications Medication Instructions Recorded Confirmed Cholecalciferol (Vitamin D3) 50 mcg PO HS 02/13/19 01/01/21 [Vitamin D3] Cyanocobalamin (Vitamin B-12) 1,000 mcg PO DAILY 02/13/19 01/01/21 [Vitamin B-12] Metoprolol Tartrate [Lopressor] 50 mg PO BID 02/13/19 01/01/21 Potassium Chloride [Klor-Con 20] 20 meq PO BID 02/13/19 01/01/21 Rivaroxaban [Xarelto] 20 mg PO HS 02/13/19 01/01/21 Tamsulosin [Flomax] 0.4 mg PO HS 02/13/19 01/01/21 Escitalopram [Lexapro] 10 mg PO DAILY 08/14/20 01/01/21 Magnesium Gluconate [Magonate] 500 mg PO HS 08/14/20 01/01/21 allopurinoL [Zyloprim] 100 mg PO HS 08/14/20 01/01/21 Pantoprazole Sodium [Protonix] 40 mg PO DAILY 12/09/20 01/01/21 Sildenafil [Revatio] 20 mg PO DAILY 12/09/20 01/01/21 Ipratropium/Albuter 20-100Mcg 1 puff INHALATION RT-QID 01/01/21 01/01/21 [Combivent Respimat 20-100Mcg Inhaler] Previous Rx's Medication Instructions Recorded Atorvastatin [Lipitor] 20 mg PO DAILY tab 02/25/20 Amiodarone [Cordarone] 200 mg PO DAILY #0 tab 12/13/20 Cefuroxime Axetil [Ceftin] 500 mg PO BID #10 tab 12/13/20 Furosemide [Lasix] 60 mg PO BID #0 12/13/20 Levothyroxine Sodium [Synthroid] 25 mcg PO DAILY@0630 tab 12/13/20 Allergies Allergy/AdvReac Type Severity Reaction Status Date / Time bee venom protein (honey bee) Allergy Anaphylaxis Verified 01/01/21 12:50 Review of Systems ROS Statement: Those systems with pertinent positive or pertinent negative responses have been documented in the HPI. ROS Other: All systems not noted in ROS Statement are negative. Past Medical History Past Medical History: Atrial Fibrillation, Heart Failure, Deep Vein Thrombosis (DVT), GERD/Reflux, GI Bleed, Hyperlipidemia, Myocardial Infarction (DE), Pneumonia, Prostate Disorder, Syncope Additional Past Medical History / Comment(s): Paroxysmal Afib, cardiac valve disease, cardiomyopathy, recurrent VT with AICD, lower GI bleed, UTIs, urinary retention with IDCs at times but no issues since circumcism, BPH, iron anemia, gout R foot, FALLS, gait dysturbance, epistaxis requiring transfusion in past, DVT L arm Last Myocardial Infarction Date:: 2010 History of Any Multi-Drug Resistant Organisms: None Reported Date of last positivie culture/infection: 2014 MDRO Source:: stool Past Surgical History: AICD, Cardiac Ablation, Pacemaker Additional Past Surgical History / Comment(s): 2010 dual AICD, bilateral cataract removals/lens tranplants, adult circumcism Past Anesthesia/Blood Transfusion Reactions: No Reported Reaction Additional Past Anesthesia/Blood Transfusion Reaction / Comment(s): Past blood transfusion without reaction. Type of Cardiac Device: AICD Device Placement Date:: 03/27/2017 Past Psychological History: Depression Smoking Status: Former smoker Past Alcohol Use History: Daily, Heavy Past Drug Use History: None Reported - Past Family History Mother Family Medical History: CVA/TIA, Diabetes Mellitus Additional Family Medical History / Comment(s): Mother had "severe" diabetes and a CVA. Father Family Medical History: CVA/TIA, GI Bleed Additional Family Medical History / Comment(s): Father had a CVA General Exam - General Exam Comments Initial Comments: GENERAL: Patient is well-developed and well-nourished. Patient is nontoxic and well- hydrated and is in mild distress. ENT: Neck is soft and supple. No significant lymphadenopathy is noted. Oropharynx is clear. Moist mucous membranes. Neck has full range of motion without eliciting any pain. EYES: The sclera were anicteric and conjunctiva were pink and moist. Extraocular movements were intact and pupils were equal round and reactive to light. Eyelids were unremarkable. PULMONARY: Unlabored respirations. Good breath sounds bilaterally. Patient has crackles in both bases but significant crackles in the left base CARDIOVASCULAR: There is a regular rate and rhythm without any murmurs gallops or rubs. ABDOMEN: Soft and nontender with normal bowel sounds. SKIN: Skin is clear with no lesions or rashes and otherwise unremarkable. NEUROLOGIC: Patient is alert and oriented x3. Cranial nerves II through XII are grossly in tact. Motor and sensory are also intact. Normal speech, volume and content. Symmetrical smile. MUSCULOSKELETAL: Normal extremities with adequate strength and full range of motion. LYMPHATICS: No significant lymphadenopathy is noted PSYCHIATRIC: Normal psychiatric evaluation. Limitations: no limitations Course Vital Signs 01/01/21 01/01/21 01/01/21 10:42 11:00 11:07 Temperature 98.2 F Pulse Rate 83 83 Respiratory 24 24 24 Rate Blood Pressure 163/89 155/90 O2 Sat by Pulse 94 L 92 L Oximetry 01/01/21 01/01/21 01/01/21 11:47 12:00 12:39 Temperature 99.6 F Pulse Rate 92 120 H Respiratory 24 Rate Blood Pressure 178/98 O2 Sat by Pulse 92 L Oximetry 01/01/21 01/01/21 12:48 13:00 Temperature 98.9 F Pulse Rate 120 H 112 H Respiratory 22 26 H Rate Blood Pressure 160/98 O2 Sat by Pulse 95 Oximetry Medical Decision Making - Medical Decision Making EKG shows a sinus rhythm with occasional PVC at a rate of 80 bpm IA interval 274 QRS 136 QT interval 418 QTC is 482. Patient's EKG shows no ST segment elevation or depression there is some T-wave abnormalities in V4 V5 Chest x-ray shows acute pulmonary edema. Patient has 25 white cells in the inside did give the patient 1 g of Rocephin. Patient was given Lasix and Nitropaste emergency. I spoke with Dr. Garcia agreed to admit the patient admitted the patient wrote admitting orders I consult cardiology and I continued the Rocephin for the potential urinary tract infection. - Lab Data Result diagrams: 01/04/21 05:21 01/05/21 06:16 Lab Results 01/01/21 01/01/21 01/01/21 Range/Units 11:01 11:01 11:02 WBC 4.5 (3.8-10.6) k/uL RBC 3.42 L (4.30-5.90) m/uL Hgb 10.2 L (13.0-17.5) gm/dL Hct 33.3 L (39.0-53.0) % MCV 97.3 (80.0-100.0) fL MCH 29.9 (25.0-35.0) pg MCHC 30.7 L (31.0-37.0) g/dL RDW 15.2 (11.5-15.5) % Plt Count 201 (150-450) k/uL MPV 7.3 Neutrophils % 62 % Lymphocytes % 27 % Monocytes % 6 % Eosinophils % 1 % Basophils % 1 % Neutrophils # 2.8 (1.3-7.7) k/uL Lymphocytes # 1.2 (1.0-4.8) k/uL Monocytes # 0.3 (0-1.0) k/uL Eosinophils # 0.1 (0-0.7) k/uL Basophils # 0.0 (0-0.2) k/uL Hypochromasia Slight PT (9.0-12.0) sec INR (<1.2) APTT (22.0-30.0) sec Sodium (137-145) mmol/L Potassium (3.5-5.1) mmol/L Chloride (98-107) mmol/L Carbon Dioxide (22-30) mmol/L Anion Gap mmol/L BUN (9-20) mg/dL Creatinine (0.66-1.25) mg/dL Est GFR (CKD-EPI)AfAm (>60 ml/min/1.73 sqM) Est GFR (CKD-EPI)NonAf (>60 ml/min/1.73 sqM) Glucose (74-99) mg/dL Plasma Lactic Acid Lemuel 1.0 (0.7-2.0) mmol/L Calcium (8.4-10.2) mg/dL Total Bilirubin (0.2-1.3) mg/dL AST (17-59) U/L ALT (4-49) U/L Alkaline Phosphatase (38-126) U/L NT-Pro-B Natriuret Pep pg/mL Total Protein (6.3-8.2) g/dL Albumin (3.5-5.0) g/dL Procalcitonin (0.02-0.09) ng/mL Urine Color Light Yellow Urine Appearance Clear (Clear) Urine pH 6.5 (5.0-8.0) Ur Specific [place] 1.011 (1.001-1.035) Urine Protein Negative (Negative) Urine Glucose (UA) Negative (Negative) Urine Ketones Negative (Negative) Urine Blood Negative (Negative) Urine Nitrite Negative (Negative) Urine Bilirubin Negative (Negative) Urine Urobilinogen <2.0 (<2.0) mg/dL Ur Leukocyte Esterase Large H (Negative) Urine RBC 2 (0-5) /hpf Urine WBC 25 H (0-5) /hpf Ur Squamous Epith Cells <1 (0-4) /hpf Urine Mucus Rare H (None) /hpf Coronavirus (PCR) (Not Detectd) 01/01/21 01/01/21 01/01/21 Range/Units 11:02 11:02 11:02 WBC (3.8-10.6) k/uL RBC (4.30-5.90) m/uL Hgb (13.0-17.5) gm/dL Hct (39.0-53.0) % MCV (80.0-100.0) fL MCH (25.0-35.0) pg MCHC (31.0-37.0) g/dL RDW (11.5-15.5) % Plt Count (150-450) k/uL MPV Neutrophils % % Lymphocytes % % Monocytes % % Eosinophils % % Basophils % % Neutrophils # (1.3-7.7) k/uL Lymphocytes # (1.0-4.8) k/uL Monocytes # (0-1.0) k/uL Eosinophils # (0-0.7) k/uL Basophils # (0-0.2) k/uL Hypochromasia PT 12.4 H (9.0-12.0) sec INR 1.2 H (<1.2) APTT 30.0 (22.0-30.0) sec Sodium 138 (137-145) mmol/L Potassium 4.7 (3.5-5.1) mmol/L Chloride 99 (98-107) mmol/L Carbon Dioxide 33 H (22-30) mmol/L Anion Gap 6 mmol/L BUN 17 (9-20) mg/dL Creatinine 0.98 (0.66-1.25) mg/dL Est GFR (CKD-EPI)AfAm 84 (>60 ml/min/1.73 sqM) Est GFR (CKD-EPI)NonAf 73 (>60 ml/min/1.73 sqM) Glucose 109 H (74-99) mg/dL Plasma Lactic Acid Lemuel (0.7-2.0) mmol/L Calcium 9.0 (8.4-10.2) mg/dL Total Bilirubin 0.6 (0.2-1.3) mg/dL AST 63 H (17-59) U/L ALT 54 H (4-49) U/L Alkaline Phosphatase 70 (38-126) U/L NT-Pro-B Natriuret Pep 3880 pg/mL Total Protein 6.6 (6.3-8.2) g/dL Albumin 3.5 (3.5-5.0) g/dL Procalcitonin (0.02-0.09) ng/mL Urine Color Urine Appearance (Clear) Urine pH (5.0-8.0) Ur Specific [place] (1.001-1.035) Urine Protein (Negative) Urine Glucose (UA) (Negative) Urine Ketones (Negative) Urine Blood (Negative) Urine Nitrite (Negative) Urine Bilirubin (Negative) Urine Urobilinogen (<2.0) mg/dL Ur Leukocyte Esterase (Negative) Urine RBC (0-5) /hpf Urine WBC (0-5) /hpf Ur Squamous Epith Cells (0-4) /hpf Urine Mucus (None) /hpf Coronavirus (PCR) (Not Detectd) 01/01/21 01/01/21 01/02/21 Range/Units 11:08 12:38 05:09 WBC (3.8-10.6) k/uL RBC (4.30-5.90) m/uL Hgb (13.0-17.5) gm/dL Hct (39.0-53.0) % MCV (80.0-100.0) fL MCH (25.0-35.0) pg MCHC (31.0-37.0) g/dL RDW (11.5-15.5) % Plt Count (150-450) k/uL MPV Neutrophils % % Lymphocytes % % Monocytes % % Eosinophils % % Basophils % % Neutrophils # (1.3-7.7) k/uL Lymphocytes # (1.0-4.8) k/uL Monocytes # (0-1.0) k/uL Eosinophils # (0-0.7) k/uL Basophils # (0-0.2) k/uL Hypochromasia PT (9.0-12.0) sec INR (<1.2) APTT (22.0-30.0) sec Sodium (137-145) mmol/L Potassium (3.5-5.1) mmol/L Chloride (98-107) mmol/L Carbon Dioxide (22-30) mmol/L Anion Gap mmol/L BUN (9-20) mg/dL Creatinine (0.66-1.25) mg/dL Est GFR (CKD-EPI)AfAm (>60 ml/min/1.73 sqM) Est GFR (CKD-EPI)NonAf (>60 ml/min/1.73 sqM) Glucose (74-99) mg/dL Plasma Lactic Acid Lemuel (0.7-2.0) mmol/L Calcium (8.4-10.2) mg/dL Total Bilirubin (0.2-1.3) mg/dL AST (17-59) U/L ALT (4-49) U/L Alkaline Phosphatase (38-126) U/L NT-Pro-B Natriuret Pep 69508 pg/mL Total Protein (6.3-8.2) g/dL Albumin (3.5-5.0) g/dL Procalcitonin 0.07 (0.02-0.09) ng/mL Urine Color Urine Appearance (Clear) Urine pH (5.0-8.0) Ur Specific [place] (1.001-1.035) Urine Protein (Negative) Urine Glucose (UA) (Negative) Urine Ketones (Negative) Urine Blood (Negative) Urine Nitrite (Negative) Urine Bilirubin (Negative) Urine Urobilinogen (<2.0) mg/dL Ur Leukocyte Esterase (Negative) Urine RBC (0-5) /hpf Urine WBC (0-5) /hpf Ur Squamous Epith Cells (0-4) /hpf Urine Mucus (None) /hpf Coronavirus (PCR) Not Detected (Not Detectd) 01/02/21 01/03/21 01/03/21 Range/Units 05:09 04:55 04:55 WBC (3.8-10.6) k/uL RBC (4.30-5.90) m/uL Hgb (13.0-17.5) gm/dL Hct (39.0-53.0) % MCV (80.0-100.0) fL MCH (25.0-35.0) pg MCHC (31.0-37.0) g/dL RDW (11.5-15.5) % Plt Count (150-450) k/uL MPV Neutrophils % % Lymphocytes % % Monocytes % % Eosinophils % % Basophils % % Neutrophils # (1.3-7.7) k/uL Lymphocytes # (1.0-4.8) k/uL Monocytes # (0-1.0) k/uL Eosinophils # (0-0.7) k/uL Basophils # (0-0.2) k/uL Hypochromasia PT (9.0-12.0) sec INR (<1.2) APTT (22.0-30.0) sec Sodium 138 141 (137-145) mmol/L Potassium 3.9 4.4 (3.5-5.1) mmol/L Chloride 95 L 96 L (98-107) mmol/L Carbon Dioxide 39 H 38 H (22-30) mmol/L Anion Gap 4 7 mmol/L BUN 19 23 H (9-20) mg/dL Creatinine 1.16 1.44 H (0.66-1.25) mg/dL Est GFR (CKD-EPI)AfAm 68 52 (>60 ml/min/1.73 sqM) Est GFR (CKD-EPI)NonAf 59 45 (>60 ml/min/1.73 sqM) Glucose 118 H 114 H (74-99) mg/dL Plasma Lactic Acid Lemuel (0.7-2.0) mmol/L Calcium 8.9 8.8 (8.4-10.2) mg/dL Total Bilirubin (0.2-1.3) mg/dL AST (17-59) U/L ALT (4-49) U/L Alkaline Phosphatase (38-126) U/L NT-Pro-B Natriuret Pep 7080 pg/mL Total Protein (6.3-8.2) g/dL Albumin (3.5-5.0) g/dL Procalcitonin (0.02-0.09) ng/mL Urine Color Urine Appearance (Clear) Urine pH (5.0-8.0) Ur Specific [place] (1.001-1.035) Urine Protein (Negative) Urine Glucose (UA) (Negative) Urine Ketones (Negative) Urine Blood (Negative) Urine Nitrite (Negative) Urine Bilirubin (Negative) Urine Urobilinogen (<2.0) mg/dL Ur Leukocyte Esterase (Negative) Urine RBC (0-5) /hpf Urine WBC (0-5) /hpf Ur Squamous Epith Cells (0-4) /hpf Urine Mucus (None) /hpf Coronavirus (PCR) (Not Detectd) Critical Care Time Critical Care Time: Yes Total Critical Care Time: 35 Disposition Clinical Impression: Acute pulmonary edema Disposition: ADMITTED IP TO THIS [facility] Condition: Serious
[2021-01-01 11:18] LABS: Basophils % (A) 1 %; Eosinophils # (A) 0.1 k/uL (0-0.7); Eosinophils % (A) 1 %; HCT 33.3 % (39.0-53.0); HGB 10.2 gm/dL (13.0-17.5); Hypochromasia Slight; Lymphocytes # (A) 1.2 k/uL (1.0-4.8); Lymphocytes % (A) 27 %; MCH 29.9 pg (25.0-35.0); MCHC 30.7 g/dL (31.0-37.0); MCV 97.3 fL (80.0-100.0); Mean Platelet Volume 7.3; Monocytes # (A) 0.3 k/uL (0-1.0); Monocytes % (A) 6 %; Neutrophils # (A) 2.8 k/uL (1.3-7.7); Neutrophils % (A) 62 %; Platelet Count 201 k/uL (150-450); RBC 3.42 m/uL (4.30-5.90); RDW 15.2 % (11.5-15.5); WBC 4.5 k/uL (3.8-10.6)
--- NOTE | 2021-01-01 11:29 | XR ---
EXAMINATION TYPE: XR chest 1V portable DATE OF EXAM: 01/01/2021 COMPARISON: 12/13/2020 INDICATION: Fever TECHNIQUE: Single frontal view of the chest is obtained. FINDINGS: The heart size is enlarged. The pulmonary vasculature is prominent. Diffuse scattered infiltrates are present bilaterally. This may be more focal in the left lower lobe. Pacemaker overlies left chest. Findings are worsening over the interval. IMPRESSION: 1. Cardiomegaly with increased pulmonary vascular markings and diffuse increased lung markings. Corre late for congestive heart failure. 2. Atypical pulmonary edema or pneumonia at the left base should be considered. 3. Atypical pneumonia is not excluded.
[2021-01-01 11:30] LABS: Albumin 3.5 g/dL (3.5-5.0); Potassium 4.7 mmol/L (3.5-5.1); Total Bilirubin 0.6 mg/dL (0.2-1.3); Total Protein 6.6 g/dL (6.3-8.2)
[2021-01-01 11:31] LABS: INR 1.2 (<1.2); Prothrombin Time 12.4 sec (9.0-12.0)
[2021-01-01 12:00] LABS: Appearance,Urine Clear (Clear); Bilirubin,Urine Negative (Negative); Blood,Urine Negative (Negative); Color,Urine Light Yellow; Glucose,Urine (UA) Negative (Negative); Ketones,Urine Negative (Negative); Leukocyte Esterase,Urine Large (Negative); Mucus,Urine Rare /hpf; Nitrite,Urine Negative (Negative); PH, Urine 6.5 (5.0-8.0); Protein,Urine Negative (Negative); RBC,Urine 2 /hpf (0-5); Specific Gravity,Urine 1.011 (1.001-1.035); Squamous Epithelial Cell,Urine <1 /hpf (0-4); Urobilinogen,Urine <2.0 mg/dL (<2.0); WBC,Urine 25 /hpf (0-5)
[2021-01-01] MEDS ORDERED: FUROSEMIDE 10 MG/ML 4 ML VIAL IV STA (12:17)
[2021-01-01] MEDS ORDERED: IPRATROPIUM-ALBUTEROL 3 ML NEB INHALATION STA (12:31)
[2021-01-01] MEDS ORDERED: NITROGLYCERIN OINT 1 INCH/GM PACKET TOPICAL STA (12:31)
[2021-01-01] MEDS ORDERED: cefTRIAXone IN SWFI 1,000 MG/10 ML SYRINGE IVP STA (12:32)
--- NOTE | 2021-01-01 15:49 | P.HPIM ---
History of Present Illness H&P Date: 01/01/21 Chief Complaint: Shortness of breath History of presenting complaint: This is a pleasant 80-year-old patient who follows with visiting physicians Dr. Wall. Chronic stable medical conditions include atrial fibrillation, , GERD, hyperlipidemia, coronary artery disease, cardiomyopathy, AICD, BPH. Patient lives with his daughter Brie. Normally uses a walker. Was drinking heavily up until July 2021. ex-smoker. Home oxygen-2 L 4 weeks ago was admitted to the hospital with with pneumonia, acute medical asthenia, acute kidney injury. , IV cefepime. Acute CHF. IV Lasix Also treated for COPD exacerbation Creatinine improved from 2.15 down to 1.46. Breathing improved. Today: Feeling better. Eating better. 96% on 3 L. Patient now presents with increasing shortness of breath for last few days. He thinks he is bringing up some sputum does not bother color. Very slight cough. No fever no chills. Appetite is good. Patient sits up in a recliner and worse on lying down. Mild edema Review of systems: GEN.: No fever no chills EYES: None HEENT: None NECK: None RESPIRATORY: As above CARDIOVASCULAR: As above GASTROINTESTINAL: None GENITOURINARY: None MUSCULOSKELETAL: joint pains LYMPHATICS: None HEMATOLOGICAL: None PSYCHIATRY: None NEUROLOGICAL: A bit forgetful, using a walker Past medical history to include: Atrial fibrillation, CHF EF 30-35%, DVT, GERD, GI bleed, hyperlipidemia, LA, cardiomyopathy, AICD, BPH, gait dysfunction using a walker, depression, moderate mitral regurgitation, moderate to severe tricuspid regurgitation, severe pulmonary hypertension. Home oxygen 2 L Social history: Patient is daughter Brie lives with him. Uses walker. Patient smoked for 57 years. Stopped in 2010. Was drinking heavily up until July 2021. Physical examination: VITAL SIGNS: 98.2, 83, 24, 163/89, 94% on 2 L GENERAL: BMI 30., sitting at the side of the bed, some shortness of breath EYES: Pupils equal. Conjunctiva normal. HEENT: External appearance of nose and ears normal, oral cavity grossly normal. NECK: JVD raised; masses not palpable. HEART: First and second heart sounds are normal; mild edema. LUNGS: Respiratory rate increased; fine basal crackles ABDOMEN: Soft, nontender, liver spleen not palpable, no masses palpable. PSYCH: AO 3, more affect normal MUSCULAR skeletal: Evidence of OA . Some kyphosis NEUROLOGICAL: Cranial nerves grossly intact; no facial asymmetry, power and sensation grossly intact. LYMPHATICS: No lymph nodes palpable in the axilla and neck INVESTIGATIONS, reviewed in the clinical context: WBC 4.5 hemoglobin 10.2 platelets 201 potassium 4.7 creatinine 0.98 AST 63 ALT 54 proBNP 3880 UA positive for leukoesterase, WBC Coronavirus [PCR]-not detected Chest x-ray film personally reviewed by me-pulmonary edema, possible infiltrate EKG tracing personally reviewed by me-sinus rhythm, intraventricular block, some ST-T wave changes Previous testin12/13/2020: BUN 50 creatinine 1.July: 2-D echocardiogram: Moderate concentric LVH, EF 30-35%, wall motion abnormality, moderate MR, moderate to severe TR, severe pulmonary hypertension Assessment and plan: -Acute on Chronic congestive heart failure from systolic dysfunction EF 30-35%, exacerbation IV Lasix 40 mg, every 8. Fluid restriction 1500 mL daily. Strict I's and O's. -Possible pneumonia suspected gram-negative organism IV cefepime 2 g every 12 -Chronic medical debility, uses a walker at baseline PTOT -Persistent atrial fibrillation, rate controlled Follow telemetry, continue xarelto -Chronic DVT On xarelto -GERD Continue with Protonix -Hyperlipidemia Continue with Lipitor - COPD in a previous smoker- *Nebulized bronchodilators, , inhaled steroids, . Add Mucinex -BPH: Continue with Flomax -Chronic gout Continue with allopurinol -Essential hypertension Lopressor, -Hypothyroid Continue Synthroid -Severe pulmonary hypertension, secondary to COPD and CHF Continue revatio -Moderate mitral and tricuspid regurgitation Follow clinically Care was discussed with the patient. Questions answered. IV Lasix. Strict I's and O's. Given the complexity and severity of patient's condition expect the patient to be in the hospital at least for 2 overnights Past Medical History Past Medical History: Atrial Fibrillation, Heart Failure, Deep Vein Thrombosis (DVT), GERD/Reflux, GI Bleed, Hyperlipidemia, Myocardial Infarction (LA), Pneumonia, Prostate Disorder, Syncope Additional Past Medical History / Comment(s): Paroxysmal Afib, cardiac valve disease, cardiomyopathy, recurrent VT with AICD, lower GI bleed, UTIs, urinary retention with IDCs at times but no issues since circumcism, BPH, iron anemia, gout R foot, FALLS, gait dysturbance, epistaxis requiring transfusion in past, DVT L arm Last Myocardial Infarction Date:: 2010 History of Any Multi-Drug Resistant Organisms: None Reported Date of last positivie culture/infection: 2014 MDRO Source:: stool Past Surgical History: AICD, Cardiac Ablation, Pacemaker Additional Past Surgical History / Comment(s): 2010 dual AICD, bilateral cataract removals/lens tranplants, adult circumcism Past Anesthesia/Blood Transfusion Reactions: No Reported Reaction Additional Past Anesthesia/Blood Transfusion Reaction / Comment(s): Past blood transfusion without reaction. Type of Cardiac Device: AICD Device Placement Date:: 03/27/2017 Past Psychological History: Depression Additional Psychological History / Comment(s): Pt has his elizabet, Brie residing with him. He states he is up and about with wheeled walker. Elizabet drives and helps manage his medications. Smoking Status: Former smoker Past Alcohol Use History: Daily, Heavy Additional Past Alcohol Use History / Comment(s): Pt started smoking in 1953 and quit in 2010. Pt states he was a heavy drinker but quit 08/16/21. Past Drug Use History: None Reported - Past Family History Mother Family Medical History: CVA/TIA, Diabetes Mellitus Additional Family Medical History / Comment(s): Mother had "severe" diabetes and a CVA. Father Family Medical History: CVA/TIA, GI Bleed Additional Family Medical History / Comment(s): Father had a CVA Medications and Allergies Home Medications Medication Instructions Recorded Confirmed Type Cholecalciferol (Vitamin D3) 50 mcg PO HS 02/13/19 01/01/21 History [Vitamin D3] Cyanocobalamin (Vitamin B-12) 1,000 mcg PO DAILY 02/13/19 01/01/21 History [Vitamin B-12] Metoprolol Tartrate [Lopressor] 50 mg PO BID 02/13/19 01/01/21 History Potassium Chloride [Klor-Con 20] 20 meq PO BID 02/13/19 01/01/21 History Rivaroxaban [Xarelto] 20 mg PO HS 02/13/19 01/01/21 History Tamsulosin [Flomax] 0.4 mg PO HS 02/13/19 01/01/21 History Atorvastatin [Lipitor] 20 mg PO DAILY tab 02/25/20 01/01/21 Rx Escitalopram [Lexapro] 10 mg PO DAILY 08/14/20 01/01/21 History Magnesium Gluconate [Magonate] 500 mg PO HS 08/14/20 01/01/21 History allopurinoL [Zyloprim] 100 mg PO HS 08/14/20 01/01/21 History Pantoprazole Sodium [Protonix] 40 mg PO DAILY 12/09/20 01/01/21 History Sildenafil [Revatio] 20 mg PO DAILY 12/09/20 01/01/21 History Amiodarone [Cordarone] 200 mg PO DAILY #0 tab 12/13/20 01/01/21 Rx Cefuroxime Axetil [Ceftin] 500 mg PO BID #10 tab 12/13/20 01/01/21 Rx Furosemide [Lasix] 60 mg PO BID #0 12/13/20 01/01/21 Rx Levothyroxine Sodium [Synthroid] 25 mcg PO DAILY@0630 tab 12/13/20 01/01/21 Rx Ipratropium/Albuter 20-100Mcg 1 puff INHALATION RT-QID 01/01/21 01/01/21 History [Combivent Respimat 20-100Mcg Inhaler] Allergies Allergy/AdvReac Type Severity Reaction Status Date / Time bee venom protein (honey bee) Allergy Anaphylaxis Verified 01/01/21 12:50 Physical Exam Vitals: Vital Signs Temp Pulse Pulse Resp BP BP Pulse Ox 01/01/21 15:00 97.7 F 104 H 20 149/84 95 01/01/21 13:00 98.9 F 112 H 26 H 160/98 95 01/01/21 12:48 120 H 22 01/01/21 12:39 120 H 01/01/21 12:00 92 24 178/98 92 L 01/01/21 11:47 99.6 F 01/01/21 11:07 24 01/01/21 11:00 83 24 155/90 92 L 01/01/21 10:42 98.2 F 83 24 163/89 94 L Intake and Output 01/01/21 01/01/21 01/01/21 06:59 14:59 22:59 Output Total 220 Balance -220 Output: Urine 220 Other: # Voids 1 Weight 89.358 kg 89.358 kg Results CBC & Chem 7: 01/01/21 11:02 01/01/21 11:02 Labs: Abnormal Lab Results - Last 24 Hours (Table) 01/01/21 01/01/21 01/01/21 Range/Units 11:01 11:02 11:02 RBC 3.42 L (4.30-5.90) m/uL Hgb 10.2 L (13.0-17.5) gm/dL Hct 33.3 L (39.0-53.0) % MCHC 30.7 L (31.0-37.0) g/dL PT 12.4 H (9.0-12.0) sec INR 1.2 H (<1.2) Carbon Dioxide (22-30) mmol/L Glucose (74-99) mg/dL AST (17-59) U/L ALT (4-49) U/L Ur Leukocyte Esterase Large H (Negative) Urine WBC 25 H (0-5) /hpf Urine Mucus Rare H (None) /hpf 01/01/21 Range/Units 11:02 RBC (4.30-5.90) m/uL Hgb (13.0-17.5) gm/dL Hct (39.0-53.0) % MCHC (31.0-37.0) g/dL PT (9.0-12.0) sec INR (<1.2) Carbon Dioxide 33 H (22-30) mmol/L Glucose 109 H (74-99) mg/dL AST 63 H (17-59) U/L ALT 54 H (4-49) U/L Ur Leukocyte Esterase (Negative) Urine WBC (0-5) /hpf Urine Mucus (None) /hpf Thrombosis Risk Factor Assmnt - Choose All That Apply Any of the Below Risk Factors Present?: Yes Other Risk Factors: Yes Other congenital or acquired thrombophilia - If yes, enter type in comment: No
[2021-01-01] MEDS: IPRATROPIUM-ALBUTEROL 3 ML NEB INHALATION SCH ×2 (17:15→21:13)
[2021-01-01] MEDS ORDERED: NITROGLYCERIN OINT 1 INCH/GM PACKET TOPICAL SCH (18:00)
[2021-01-01] MEDS: guaiFENesin 600 MG TABLET.ER PO SCH ×2 (18:01→21:30)
[2021-01-01] MEDS: FUROSEMIDE 10 MG/ML 4 ML VIAL IV SCH (18:01)
[2021-01-01] MEDS: CEFEPIME 2 GM in SODIUM CHLORIDE 0.9% 100 ML IVPB SCH (20:16)
[2021-01-01] MEDS: allopurinoL 100 MG TAB PO SCH (20:19)
[2021-01-01] MEDS: POTASSIUM CHLORIDE ER 20 MEQ TAB.ER PO SCH (20:19)
[2021-01-01] MEDS: TAMSULOSIN 0.4 MG CAP.ER.24H PO SCH (20:20)
[2021-01-01] MEDS: CHOLECALCIFEROL 25 MCG (1000 IU) TABLET PO SCH (20:20)
[2021-01-01] MEDS: METOPROLOL TARTRATE 50 MG TAB PO SCH (20:20)
[2021-01-01] MEDS: MAGNESIUM OXIDE 400 MG TAB PO SCH (20:20)
[2021-01-01] MEDS: RIVAROXABAN 20 MG TAB PO SCH (20:20)
[2021-01-01] MEDS: BUDESONIDE 1 MG/2 ML NEBU INHALATION SCH (21:13)
[2021-01-02] MEDS: FUROSEMIDE 10 MG/ML 4 ML VIAL IV SCH ×4 (00:01→23:48)
[2021-01-02 05:51] LABS: African American GFR (CKD) 68 (>60 ml/min/1.73 sqM); Anion Gap 4 mmol/L; Blood Urea Nitrogen 19 mg/dL (9-20); Calcium 8.9 mg/dL (8.4-10.2); Carbon Dioxide 39 mmol/L (22-30); Chloride 95 mmol/L (98-107); Glucose 118 mg/dL (74-99); Non-African American GFR(CKD) 59 (>60 ml/min/1.73 sqM); Potassium 3.9 mmol/L (3.5-5.1); Sodium 138 mmol/L (137-145)
[2021-01-02] MEDS: LEVOTHYROXINE 25 MCG TAB PO SCH (06:23)
[2021-01-02] MEDS: METOPROLOL TARTRATE 50 MG TAB PO SCH ×2 (08:16→21:56)
[2021-01-02] MEDS: CYANOCOBALAMIN 500 MCG TAB PO SCH (08:16)
[2021-01-02] MEDS: ATORVASTATIN 20 MG TAB PO SCH (08:16)
[2021-01-02] MEDS: guaiFENesin 600 MG TABLET.ER PO SCH ×4 (08:16→21:56)
[2021-01-02] MEDS: POTASSIUM CHLORIDE ER 20 MEQ TAB.ER PO SCH ×2 (08:16→21:56)
[2021-01-02] MEDS: PANTOPRAZOLE 40 MG TABLET PO SCH (08:16)
[2021-01-02] MEDS: SILDENAFIL 20 MG TAB PO SCH (08:17)
[2021-01-02] MEDS: AMIODARONE 200 MG TAB PO SCH (08:17)
[2021-01-02] MEDS: ESCITALOPRAM 10 MG TAB PO SCH (08:17)
[2021-01-02] MEDS: CEFEPIME 2 GM in SODIUM CHLORIDE 0.9% 100 ML IVPB SCH (08:18)
[2021-01-02] MEDS: IPRATROPIUM-ALBUTEROL 3 ML NEB INHALATION SCH ×4 (08:43→20:45)
[2021-01-02] MEDS: BUDESONIDE 1 MG/2 ML NEBU INHALATION SCH ×2 (08:43→20:45)
--- NOTE | 2021-01-02 15:05 | CONS ---
CONSULTATION Steven Hussein is an 80-year-old gentleman with a known history of CAD, known ischemic cardiomyopathy, patient has history of chronic atrial fibrillation, previous history of alcohol abuse. He also has an ICD placement. He came into the hospital with increasing shortness of breath and was found to be in congestive heart failure. Admitted for this reason for IV diuresis. At the time of my evaluation he feels better. He denies any chest discomfort. His shortness of breath has improved since arrival to the hospital. For the last 3-4 days he was having difficulty in breathing that got progressively worse. He also stopped taking his Lasix and this seems to be unclear as to why this happened. He does not appear to be in any distress. He is resting comfortably. PAST MEDICAL HISTORY: 1. Ischemic cardiomyopathy with a prior PA, ejection fraction in the range of 30% to 35% with ICD. 2. Chronic atrial fibrillation. 3. Hypertension. 4. Hyperlipidemia. 5. Status post ICD. MEDICATIONS: Medications at home include metoprolol tartrate 50 mg b.i.d., Xarelto 20 mg daily, potassium 20 mg b.i.d., he takes Flomax, Lexapro, allopurinol, Lasix 60 mg b.i.d., amiodarone 200 mg daily, Lipitor 20 mg daily and also takes some ( ) 20 mg daily. PHYSICAL EXAMINATION: On examination, blood pressure is about 130/70, pulse is about 90, irregular. HEENT: Unremarkable. Fundus was not examined by me. NECK: Supple. There is JVD of at least 1 cm. No carotid bruit. HEART: Reveals S1, S2 with some irregular rhythm. There is a short systolic murmur at the base. No gallops. LUNGS: Reveal diminished air entry with fine bibasilar rales. ABDOMEN: Soft, nontender. Lower extremities reveal 1+ edema, diminished pulses. CENTRAL NERVOUS SYSTEM: Grossly within normal limits. EKG reveals what seems to be atrial fibrillation with nonspecific ST changes and some baseline artifact. LABORATORY DATA: Revealed that his proBNP is over 17,000. His electrolytes appeared to be acceptable. Hemoglobin is 10.2, platelet count is normal. IMPRESSION: 1. Exacerbation of systolic heart failure. 2. Known ischemic cardiomyopathy. 3. History of persistent atrial fibrillation. RECOMMENDATIONS: I would recommend that we continue diuresis at 40 mg q.8 hours of Lasix. Continue all his other medications as before. Check a CBC, BMP tomorrow and based on clinical course, make further recommendations. Thank you very much for the consult indication. MMODL / IJN: [id number] /
--- NOTE | 2021-01-02 19:52 | P.PN ---
Progress Note - Text Progress Note Date: 01/02/21 Chief Complaint: Shortness of breath History of presenting complaint: This is a pleasant 80-year-old patient who follows with visiting physicians Dr. Wall. Chronic stable medical conditions include atrial fibrillation, , GERD, hyperlipidemia, coronary artery disease, cardiomyopathy, AICD, BPH. Patient lives with his daughter Brie. Normally uses a walker. Was drinking heavily up until July 2021. ex-smoker. Home oxygen-2 L 4 weeks ago was admitted to the hospital with with pneumonia, acute medical asthenia, acute kidney injury. , IV cefepime. Acute CHF. IV Lasix Also treated for COPD exacerbation Creatinine improved from 2.15 down to 1.46. Breathing improved. Patient now presents with increasing shortness of breath for last few days. He thinks he is bringing up some sputum does not bother color. Very slight cough. No fever no chills. Appetite is good. Patient sits up in a recliner and worse on lying down. Mild edema Admitted with CHF exacerbation, pneumonia. Put on IV Lasix. IV cefepime. Today: Laying in bed. Breathing a bit better. Some shortness breath. Oral intake good Review of systems: Was done for constitutional, cardiovascular, GI, pulmonary. relevant finding as above Active Medications Albuterol/Ipratropium (Ipratropium-Albuterol 3 Ml Neb) 3 ml INHALATION RT-QID [facility] Last Admin: 01/02/21 16:00 Dose: 3 ml Documented by: Allopurinol (Allopurinol 100 Mg Tab) 100 mg PO [facility] Last Admin: 01/01/21 20:19 Dose: 100 mg Documented by: Amiodarone HCl (Amiodarone 200 Mg Tab) 200 mg PO DAILY [facility] Last Admin: 01/02/21 08:17 Dose: 200 mg Documented by: Atorvastatin Calcium (Atorvastatin 20 Mg Tab) 20 mg PO DAILY [facility] Last Admin: 01/02/21 08:16 Dose: 20 mg Documented by: Budesonide (Budesonide 1 Mg/2 Ml Nebu) 1 mg INHALATION RT-BID [facility] Last Admin: 01/02/21 08:43 Dose: 1 mg Documented by: Cholecalciferol (Cholecalciferol 25 Mcg (1000 Iu) Tablet) 50 mcg PO [facility] Last Admin: 01/01/21 20:20 Dose: 50 mcg Documented by: Cyanocobalamin (Cyanocobalamin 500 Mcg Tab) 1,000 mcg PO DAILY [facility] Last Admin: 01/02/21 08:16 Dose: 1,000 mcg Documented by: Escitalopram Oxalate (Escitalopram 10 Mg Tab) 10 mg PO DAILY [facility] Last Admin: 01/02/21 08:17 Dose: 10 mg Documented by: Furosemide (Furosemide 10 Mg/Ml 4 Ml Vial) 40 mg IV Q8HR [facility] Last Admin: 01/02/21 17:00 Dose: 40 mg Documented by: Guaifenesin (Guaifenesin 600 Mg Tablet.Er) 600 mg PO QID [facility] Last Admin: 01/02/21 17:06 Dose: 600 mg Documented by: Cefepime HCl 2 gm/ Sodium (Chloride) 100 mls @ 25 mls/hr IVPB Q12HR [facility] Last Admin: 01/02/21 08:18 Dose: Not Given Documented by: Levothyroxine Sodium (Levothyroxine 25 Mcg Tab) 25 mcg PO DAILY@0630 [facility] Last Admin: 01/02/21 06:23 Dose: 25 mcg Documented by: Magnesium Oxide (Magnesium Oxide 400 Mg Tab) 400 mg PO [facility] Last Admin: 01/01/21 20:20 Dose: 400 mg Documented by: Metoprolol Tartrate (Metoprolol Tartrate 50 Mg Tab) 50 mg PO BID [facility] Last Admin: 01/02/21 08:16 Dose: 50 mg Documented by: Pantoprazole Sodium (Pantoprazole 40 Mg Tablet) 40 mg PO DAILY [facility] Last Admin: 01/02/21 08:16 Dose: 40 mg Documented by: Potassium Chloride (Potassium Chloride Er 20 Meq Tab.Er) 20 meq PO BID [facility] Last Admin: 01/02/21 08:16 Dose: 20 meq Documented by: Rivaroxaban (Rivaroxaban 20 Mg Tab) 20 mg PO [facility] Last Admin: 01/01/21 20:20 Dose: 20 mg Documented by: Sildenafil Citrate (Sildenafil 20 Mg Tab) 20 mg PO DAILY [facility] Last Admin: 01/02/21 08:17 Dose: 20 mg Documented by: Tamsulosin HCl (Tamsulosin 0.4 Mg Cap.Er.24h) 0.4 mg PO [facility] Last Admin: 01/01/21 20:20 Dose: 0.4 mg Documented by: Past medical history to include: Atrial fibrillation, CHF EF 30-35%, DVT, GERD, GI bleed, hyperlipidemia, MD, cardiomyopathy, AICD, BPH, gait dysfunction using a walker, depression, moderate mitral regurgitation, moderate to severe tricuspid regurgitation, severe pulmonary hypertension. Home oxygen 2 L Social history: Patient is daughter Brie lives with him. Uses walker. Patient smoked for 57 years. Stopped in 2010. Was drinking heavily up until July 2021. Physical examination: VITAL SIGNS: 98.2, 61, 21, 10 9 x 40, 98% on 3 L GENERAL: Laying in bed, less short of breath EYES: Pupils equal. Conjunctiva normal. NECK: JVD raised; masses not palpable. HEART: First and second heart sounds are normal; mild edema. LUNGS: Respiratory rate increased; fine basal crackles ABDOMEN: Soft, nontender, liver spleen not palpable, no masses palpable. PSYCH: AO 3, more affect normal MUSCULAR skeletal: Evidence of OA . Some kyphosis INVESTIGATIONS, reviewed in the clinical context: January 02: Potassium 3.9 creatinine 1.16 WBC 4.5 hemoglobin 10.2 platelets 201 potassium 4.7 creatinine 0.98 AST 63 ALT 54 proBNP 3880 UA positive for leukoesterase, WBC Coronavirus [PCR]-not detected Chest x-ray film personally reviewed by me-pulmonary edema, possible infiltrate EKG tracing personally reviewed by me-sinus rhythm, intraventricular block, some ST-T wave changes Previous testin12/13/2020: BUN 50 creatinine 1.July: 2-D echocardiogram: Moderate concentric LVH, EF 30-35%, wall motion abnormality, moderate MR, moderate to severe TR, severe pulmonary hypertension Assessment and plan: -Acute on Chronic congestive heart failure from systolic dysfunction EF 30-35%, exacerbation-slow to respond IV Lasix 40 mg, every 8. Fluid restriction 1500 mL daily. Strict I's and O's. -Possible pneumonia suspected gram-negative organism IV cefepime 2 g every 12 -Chronic medical debility, uses a walker at baseline PTOT -Persistent atrial fibrillation, rate controlled Follow telemetry, continue xarelto -Chronic DVT On xarelto -GERD Continue with Protonix -Hyperlipidemia Continue with Lipitor - COPD in a previous smoker- *Nebulized bronchodilators, , inhaled steroids, . Add Mucinex -BPH: Continue with Flomax -Chronic gout Continue with allopurinol -Essential hypertension Lopressor, -Hypothyroid Continue Synthroid -Severe pulmonary hypertension, secondary to COPD and CHF Continue revatio -Moderate mitral and tricuspid regurgitation Follow clinically Discussed with patient. Repeat labs in the morning. Repeat chest x-ray in the morning.
[2021-01-02] MEDS: CHOLECALCIFEROL 25 MCG (1000 IU) TABLET PO SCH (21:56)
[2021-01-02] MEDS: RIVAROXABAN 20 MG TAB PO SCH (21:56)
[2021-01-02] MEDS: TAMSULOSIN 0.4 MG CAP.ER.24H PO SCH (21:56)
[2021-01-02] MEDS: allopurinoL 100 MG TAB PO SCH (21:56)
[2021-01-02] MEDS: CEFDINIR 300 MG CAP PO SCH (21:56)
[2021-01-02] MEDS: MAGNESIUM OXIDE 400 MG TAB PO SCH (21:56)
[2021-01-03] MEDS: LEVOTHYROXINE 25 MCG TAB PO SCH (05:45)
[2021-01-03 05:58] LABS: African American GFR (CKD) 52 (>60 ml/min/1.73 sqM); Blood Urea Nitrogen 23 mg/dL (9-20); Calcium 8.8 mg/dL (8.4-10.2); Chloride 96 mmol/L (98-107); Glucose 114 mg/dL (74-99); Non-African American GFR(CKD) 45 (>60 ml/min/1.73 sqM); Potassium 4.4 mmol/L (3.5-5.1); Sodium 141 mmol/L (137-145)
[2021-01-03 06:04] LABS: Anion Gap 7 mmol/L; Carbon Dioxide 38 mmol/L (22-30)
[2021-01-03] MEDS: IPRATROPIUM-ALBUTEROL 3 ML NEB INHALATION SCH ×4 (07:19→19:58)
[2021-01-03] MEDS: BUDESONIDE 1 MG/2 ML NEBU INHALATION SCH ×2 (07:19→19:58)
--- NOTE | 2021-01-03 08:05 | XR ---
EXAMINATION TYPE: XR chest 2V DATE OF EXAM: 01/03/2021 COMPARISON: 01/01/2021 TECHNIQUE: PA and lateral views submitted. HISTORY: Fever FINDINGS: Bilateral areas of infiltrate with small effusion. Cardiac device and cardiomegaly noted. Diffuse int erstitial pattern. No pneumothorax. Diffuse osteopenia. IMPRESSION: 1. Bilateral airspace disease with interstitial infiltrates correlate for CHF versus interstitial pne miranda.
[2021-01-03] MEDS: guaiFENesin 600 MG TABLET.ER PO SCH ×4 (08:33→20:14)
[2021-01-03] MEDS: METOPROLOL TARTRATE 50 MG TAB PO SCH ×2 (08:33→20:14)
[2021-01-03] MEDS: POTASSIUM CHLORIDE ER 20 MEQ TAB.ER PO SCH ×2 (08:33→20:20)
[2021-01-03] MEDS: CEFDINIR 300 MG CAP PO SCH ×2 (08:33→20:14)
[2021-01-03] MEDS: ATORVASTATIN 20 MG TAB PO SCH (08:33)
[2021-01-03] MEDS: PANTOPRAZOLE 40 MG TABLET PO SCH (08:33)
[2021-01-03] MEDS: FUROSEMIDE 10 MG/ML 4 ML VIAL IV SCH (08:33)
[2021-01-03] MEDS: CYANOCOBALAMIN 500 MCG TAB PO SCH (08:34)
[2021-01-03] MEDS: SILDENAFIL 20 MG TAB PO SCH (08:34)
[2021-01-03] MEDS: AMIODARONE 200 MG TAB PO SCH (08:34)
[2021-01-03] MEDS: ESCITALOPRAM 10 MG TAB PO SCH (08:34)
--- NOTE | 2021-01-03 09:59 | P.PN ---
Subjective Progress Note Date: 01/03/21 HISTORY OF PRESENT ILLNESS: Patient examined this morning at the bedside. Patient denies chest pain or pressure. Patient states his shortness of breath has improved. Patient remains on IV Lasix 40 mg every 8 hours. Creatinine yesterday 1.1. Creatinine today 1.44. Repeat chest x-ray this morning reveals bilateral airspace disease with interstitial infiltrates correlate for CHF versus interstitial pneumonia. Blood pressure 112/58. Heart rate in the 60s. He is afebrile. PHYSICAL EXAM: VITAL SIGNS: Reviewed. GENERAL: Well-developed in no acute distress. NECK: Supple. No JVD or thyromegaly LUNGS: Respirations even and unlabored. Lungs diminished bilaterally. HEART: Irregular rate and rhythm. S1 and S2 heard. EXTREMITIES: Normal range of motion. No clubbing or cyanosis. Peripheral pulses intact. No lower extremity edema ASSESSMENT: Acute exacerbation of chronic systolic heart failure Coronary artery disease Ischemic cardiomyopathy, ejection fraction 30-35% Chronic atrial fibrillation Hypertension Hyperlipidemia History of alcohol abuse PLAN: Continue current cardiac medications Patient to receive morning dose of IV lasix then will transition to oral lasix. 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 Patient may follow up post discharge with Dr. aBrrios Further recommendations pending patient course Nurse practitioner note has been reviewed by physician. Signing provider agrees with the documented findings, assessment, and plan of care. Objective - Vital Signs Vital signs: Vital Signs Temp 97.6 F 01/03/21 07:00 Pulse 61 01/03/21 08:00 Resp 18 01/03/21 08:00 BP 112/58 01/03/21 07:00 Pulse Ox 100 01/03/21 07:00 Intake & Output 01/02/21 01/03/21 01/03/21 18:59 06:59 18:59 Intake Total 540 Output Total 1250 Balance -710 Weight 87.2 kg Intake: Oral 540 Output: Urine 1250 Other: Voiding Method Bedside Commode Bedside Commode Bedside Commode Urinal Urinal # Voids 1 - Labs CBC & Chem 7: 01/01/21 11:02 01/03/21 04:55 Labs: Abnormal Lab Results - Last 24 Hours (Table) 01/03/21 Range/Units 04:55 Chloride 96 L (98-107) mmol/L Carbon Dioxide 38 H (22-30) mmol/L BUN 23 H (9-20) mg/dL Creatinine 1.44 H (0.66-1.25) mg/dL Glucose 114 H (74-99) mg/dL Microbiology - Last 24 Hours (Table) 01/01/21 11:01 Urine Culture - Preliminary Urine,Voided Gram Neg Bacilli 01/01/21 11:00 Blood Culture - Preliminary Blood No Growth after 24 hours 01/01/21 11:02 Blood Culture - Preliminary Blood No Growth after 24 hours
[2021-01-03] MEDS: FUROSEMIDE 80 MG TAB PO SCH (15:11)
[2021-01-03] MEDS ORDERED: ACETAMINOPHEN TAB 325 MG TAB PO STA (15:14)
--- NOTE | 2021-01-03 16:26 | PN ---
PROGRESS NOTE DATE OF SERVICE: 01/03/2021. This 80-year-old gentleman who was admitted with congestive heart failure acute exacerbation acute on chronic systolic dysfunction as well as pneumonia is being closely monitored at this time. The patient is on p.o. steroids and Cardiology following the patient closely. The patient being closely monitored. PAST MEDICAL HISTORY: Reviewed. REVIEW OF SYSTEMS: CARDIOVASCULAR SYSTEM: No angina. RESPIRATORY SYSTEM: As mentioned earlier. GI: As mentioned earlier. : No dysuria. NERVOUS SYSTEM: No numbness, weakness. The patient is complaining of severe. CURRENT MEDICATIONS: Current medications are DuoNeb, Zyloprim, Cordarone, Lipitor, Pulmicort, Lasix, Mucinex, Synthroid, Protonix. PHYSICAL EXAMINATION: Patient is alert and oriented x3. Pulse 63, blood pressure 132/68, respirations 18, temperature 98.2, pulse ox 99% on 3 L . HEENT: Conjunctivae normal. NECK: No jugular venous distention. CARDIOVASCULAR: S1, S2 muffled. RESPIRATORY: Breath sounds diminished at the bases. A few scattered rhonchi and crackles. ABDOMEN: Soft, nontender. NERVOUS SYSTEM: No focal deficits. LABS: WBC 4.5, hemoglobin 10.2, and creatinine is 1.44. ASSESSMENT: 1. Congestive heart failure acute exacerbation with acute on chronic systolic dysfunction, ejection fraction 30% to 35%. 2. Possible bilateral pneumonia, possibly gram-negative. 3. Chronic medical debility. 4. Persistent atrial fibrillation, rate controlled. 5. Chronic deep vein thrombosis. 6. Acute renal failure, acute tubular necrosis. 7. Gastroesophageal reflux disease. 8. Hyperlipidemia. 9. Chronic obstructive pulmonary disease. 10.Benign prostatic hypertrophy. 11.Chronic gout. 12.Hypertension. 13.Hypothyroidism. 14.Severe pulmonary hypertension. 15.Moderate mitral and tricuspid valve regurgitation. 16.Possible acute urinary tract infection present on admission. 17.Gram-negative bacilli from the urine, being cultured. 18.History of atrial fibrillation. 19.History of deep vein thrombosis. 20.History of paroxysmal atrial fibrillation. 21.History of AICD. 22.History of pacemaker. 23.History of depression. 24.Remote history of nicotine dependence. RECOMMENDATIONS AND DISCUSSION: This 80-year-old gentleman presented with multiple complex medical issues, we will monitor the patient closely. Continue the current medications, continue symptomatic treatment. Avoid nephrotoxic medications. Repeat labs. Otherwise, closely follow with Cardiology and monitor fluid/electrolyte balance closely and await urine cultures. Patient is on cefdinir at this time. Repeat chest x-ray was reviewed personally by me. Prognosis guarded because of multiple complex medical issues. Potassium is 4.4. We will continue to monitor. Further recommendations to follow. MMODL / IJN: [id number] / MTDD
[2021-01-03] MEDS: MAGNESIUM OXIDE 400 MG TAB PO SCH (20:14)
[2021-01-03] MEDS: TAMSULOSIN 0.4 MG CAP.ER.24H PO SCH (20:14)
[2021-01-03] MEDS: CHOLECALCIFEROL 25 MCG (1000 IU) TABLET PO SCH (20:14)
[2021-01-03] MEDS: allopurinoL 100 MG TAB PO SCH (20:14)
[2021-01-03] MEDS: RIVAROXABAN 20 MG TAB PO SCH (20:15)
[2021-01-04] MEDS: LEVOTHYROXINE 25 MCG TAB PO SCH (05:38)
[2021-01-04] MEDS: IPRATROPIUM-ALBUTEROL 3 ML NEB INHALATION SCH ×4 (07:55→19:45)
[2021-01-04] MEDS: BUDESONIDE 1 MG/2 ML NEBU INHALATION SCH ×2 (07:55→19:45)
[2021-01-04] MEDS: guaiFENesin 600 MG TABLET.ER PO SCH ×4 (08:08→20:39)
[2021-01-04] MEDS: CEFDINIR 300 MG CAP PO SCH (08:08)
[2021-01-04] MEDS: POTASSIUM CHLORIDE ER 20 MEQ TAB.ER PO SCH ×2 (08:08→20:39)
[2021-01-04] MEDS: METOPROLOL TARTRATE 50 MG TAB PO SCH ×2 (08:08→20:39)
[2021-01-04] MEDS: ESCITALOPRAM 10 MG TAB PO SCH (08:08)
[2021-01-04] MEDS: CYANOCOBALAMIN 500 MCG TAB PO SCH (08:08)
[2021-01-04] MEDS: FUROSEMIDE 80 MG TAB PO SCH ×2 (08:08→16:02)
[2021-01-04] MEDS: ATORVASTATIN 20 MG TAB PO SCH (08:08)
[2021-01-04] MEDS: AMIODARONE 200 MG TAB PO SCH (08:08)
[2021-01-04] MEDS: SILDENAFIL 20 MG TAB PO SCH (08:09)
[2021-01-04] MEDS: PANTOPRAZOLE 40 MG TABLET PO SCH (08:09)
--- NOTE | 2021-01-04 08:49 | XR ---
EXAMINATION TYPE: XR chest 2V DATE OF EXAM: 01/04/2021 COMPARISON: 01/03/2021 TECHNIQUE: PA and lateral views submitted. HISTORY: Shortness of breath FINDINGS: Heart is enlarged and there is a cardiac device with diffuse interstitial pattern, bilateral infiltra te and pleural effusion greater on the left no sizable pneumothorax. Arthropathy shoulders. Diffuse o steopenia. Atherosclerotic change aorta. IMPRESSION: 1. Correlate for CHF otherwise consider pneumonia
[2021-01-04 09:08] LABS: Basophils # (A) 0.01 X 10*3/uL (0.00-0.10); Basophils % (A) 0.2 %; Eosinophils # (A) 0.19 X 10*3/uL (0.04-0.35); Eosinophils % (A) 4.3 %; HCT 31.8 % (39.6-50.0); HGB 9.3 g/dL (13.0-17.0); Lymphocytes # (A) 1.18 X 10*3/uL (0.90-5.00); Lymphocytes % (A) 26.5 %; MCH 29.5 pg (27.0-32.0); MCHC 29.2 g/dL (32.0-37.0); Mean Platelet Volume 10.1 fL (9.5-12.2); Monocytes # (A) 0.62 X 10*3/uL (0.20-1.00); Monocytes % (A) 13.9 %; Neutrophils # (A) 2.45 X 10*3/uL (1.80-7.70); Neutrophils % (A) 54.9 %; Platelet Count 227 X 10*3/uL (140-440); RBC 3.15 X 10*6/uL (4.40-5.60); RDW 14.8 % (11.5-14.5); WBC 4.46 X 10*3/uL (4.50-10.00)
[2021-01-04 10:15] LABS: African American GFR (CKD) 59.3 (60.0-200.0); Anion Gap 7.4 mmol/L (4.00-12.00); BUN/Creat Ratio 19.23 Ratio (12.00-20.00); Calcium 8.5 mg/dL (8.7-10.3); Carbon Dioxide 39.6 mmol/L (21.6-31.8); Non-African American GFR(CKD) 51.2 (60.0-200.0); Potassium 4.4 mmol/L (3.5-5.5)
--- NOTE | 2021-01-04 11:03 | P.CNPUL ---
History of Present Illness Consult date: 01/04/21 Requesting physician: Aldair Bedoya Reason for consult: dyspnea, cough, hypoxemia, abnormal CXR/CT Chief complaint: Dyspnea, Cough History of present illness: 80-year-old white male patient with past medical history of chronic CHF with systolic dysfunction, ischemic cardiomyopathy with a prior OK, ejection fraction of 30-35%, status post AICD placement, chronic A. fib, hypertension, hyperlipide stoney, COPD on home oxygen, former smoker, patient used to smoke 2 packs a day for over 50 years, who was admitted to the hospital on 01/04/2021 with complaints of increasing shortness of breath, was progressive in nature, she did have occasional cough and sometimes she would produce phlegm. Denied any fever, denied any chills. Apparently patient stopped taking his Lasix for an unknown reason. His home dose Lasix is 60 mg twice daily. He is on Xarelto for chronic anticoagulation for his chronic A. fib. Chest x-ray in emergency department showed cardiomegaly with increased pulmonary markings and diffuse increased lung markings, consistent with acute exacerbation of CHF, atypical pulmonary edema, and pneumonia in the left base was also a consideration. Initial lab work showed a white blood cell count of 4.5, hemoglobin is 10.2, INR is 1.2, electrolytes were unremarkable, CO2 was 33, BUN is 17, creatinine 0.98, proBNP was elevated at 3800 and EGD, pro-calcitonin level was negative at 0.07, urinalysis showed large amount of leuks, and increased white blood cells. He was checked for COVID-19 per PCR and was found to be negative. Urine culture did show pseudomonas aeruginosa, blood cultures have been negative. he was placed on Omnicef. And his Lasix is currently at 80 mg twice daily. He is in - 1.3 L net fluid balance over the last 24 hours, his weight is down 3.8 kg since admission. He is currently satting 98% on 3 L, his been afebrile, he is breathing comfortably. Lung sounds reveal diffuse crackles throughout Review of Systems All systems: negative Constitutional: Denies chills, Denies fever Eyes: denies blurred vision, denies pain Ears, nose, mouth and throat: Denies headache, Denies sore throat Cardiovascular: Denies chest pain, Denies shortness of breath Respiratory: Reports cough, Reports cough with sputum, Reports dyspnea, Reports home oxygen Gastrointestinal: Denies abdominal pain, Denies diarrhea, Denies nausea, Denies vomiting Musculoskeletal: Denies myalgias Integumentary: Denies pruritus, Denies rash Neurological: Denies numbness, Denies weakness Psychiatric: Denies anxiety, Denies depression Endocrine: Denies fatigue, Denies weight change Past Medical History Past Medical History: Atrial Fibrillation, Heart Failure, Deep Vein Thrombosis (DVT), GERD/Reflux, GI Bleed, Hyperlipidemia, Myocardial Infarction (OK), Pneumonia, Prostate Disorder, Syncope Additional Past Medical History / Comment(s): Paroxysmal Afib, cardiac valve disease, cardiomyopathy, recurrent VT with AICD, lower GI bleed, UTIs, urinary retention with IDCs at times but no issues since circumcism, BPH, iron anemia, gout R foot, FALLS, gait dysturbance, epistaxis requiring transfusion in past, DVT L arm Last Myocardial Infarction Date:: 2010 History of Any Multi-Drug Resistant Organisms: None Reported Date of last positivie culture/infection: 2014 MDRO Source:: stool Past Surgical History: AICD, Cardiac Ablation, Pacemaker Additional Past Surgical History / Comment(s): 2010 dual AICD, bilateral cataract removals/lens tranplants, adult circumcism Past Anesthesia/Blood Transfusion Reactions: No Reported Reaction Additional Past Anesthesia/Blood Transfusion Reaction / Comment(s): Past blood transfusion without reaction. Type of Cardiac Device: AICD Device Placement Date:: 03/27/2017 Past Psychological History: Depression Additional Psychological History / Comment(s): Pt has his elizabetBrie residing with him. He states he is up and about with wheeled walker. Elizabet drives and helps manage his medications. Smoking Status: Former smoker Past Alcohol Use History: Daily, Heavy Additional Past Alcohol Use History / Comment(s): Pt started smoking in 1954 and quit in 2010. Pt states he was a heavy drinker but quit 08/16/21. Past Drug Use History: None Reported - Past Family History Mother Family Medical History: CVA/TIA, Diabetes Mellitus Additional Family Medical History / Comment(s): Mother had "severe" diabetes and a CVA. Father Family Medical History: CVA/TIA, GI Bleed Additional Family Medical History / Comment(s): Father had a CVA Medications and Allergies Home Medications Medication Instructions Recorded Confirmed Type Cholecalciferol (Vitamin D3) 50 mcg PO HS 02/13/19 01/01/21 History [Vitamin D3] Cyanocobalamin (Vitamin B-12) 1,000 mcg PO DAILY 02/13/19 01/01/21 History [Vitamin B-12] Metoprolol Tartrate [Lopressor] 50 mg PO BID 02/13/19 01/01/21 History Potassium Chloride [Klor-Con 20] 20 meq PO BID 02/13/19 01/01/21 History Rivaroxaban [Xarelto] 20 mg PO HS 02/13/19 01/01/21 History Tamsulosin [Flomax] 0.4 mg PO HS 02/13/19 01/01/21 History Atorvastatin [Lipitor] 20 mg PO DAILY tab 02/25/20 01/01/21 Rx Escitalopram [Lexapro] 10 mg PO DAILY 08/14/20 01/01/21 History Magnesium Gluconate [Magonate] 500 mg PO HS 08/14/20 01/01/21 History allopurinoL [Zyloprim] 100 mg PO HS 08/14/20 01/01/21 History Pantoprazole Sodium [Protonix] 40 mg PO DAILY 12/09/20 01/01/21 History Sildenafil [Revatio] 20 mg PO DAILY 12/09/20 01/01/21 History Amiodarone [Cordarone] 200 mg PO DAILY #0 tab 12/13/20 01/01/21 Rx Cefuroxime Axetil [Ceftin] 500 mg PO BID #10 tab 12/13/20 01/01/21 Rx Furosemide [Lasix] 60 mg PO BID #0 12/13/20 01/01/21 Rx Levothyroxine Sodium [Synthroid] 25 mcg PO DAILY@0630 tab 12/13/20 01/01/21 Rx Ipratropium/Albuter 20-100Mcg 1 puff INHALATION RT-QID 01/01/21 01/01/21 History [Combivent Respimat 20-100Mcg Inhaler] Allergies Allergy/AdvReac Type Severity Reaction Status Date / Time bee venom protein (honey bee) Allergy Anaphylaxis Verified 01/01/21 12:50 Physical Exam Vitals: Vital Signs Temp Pulse Pulse Pulse Resp BP Pulse Ox 01/04/21 08:07 72 01/04/21 08:00 61 61 16 01/04/21 07:55 72 01/04/21 07:07 98.3 F 61 16 122/67 98 01/04/21 01:29 98.7 F 65 20 127/55 98 01/03/21 20:15 68 01/03/21 20:00 63 18 01/03/21 19:58 64 95 01/03/21 19:49 98.4 F 59 L 20 124/60 97 01/03/21 16:16 72 01/03/21 16:07 68 01/03/21 15:00 98.3 F 63 18 132/68 99 01/03/21 14:00 68 61 18 01/03/21 11:09 76 01/03/21 10:58 72 Intake and Output 01/03/21 01/04/21 01/04/21 22:59 06:59 14:59 Intake Total 200 118 Output Total 800 825 325 Balance -600 -825 -207 Intake: Oral 200 118 Output: Urine 800 825 325 Other: Voiding Method Bedside Commode Bedside Commode Urinal Urinal # Voids 1 # Bowel Movements 1 1 Weight 85.7 kg GENERAL EXAM: Alert, very pleasant, 80-year-old white male, on 3 L of oxygen with pulse ox of 98% comfortable in no apparent distress. HEAD: Normocephalic/atraumatic. EYES: Normal reaction of pupils, equal size. Conjunctiva pink, sclera white. NOSE: Clear with pink turbinates. THROAT: No erythema or exudates. NECK: No masses, no JVD, no thyroid enlargement, no adenopathy. CHEST: No chest wall deformity. Symmetrical expansion. LUNGS: Equal air entry with diffuse crackles CVS: Irregular rate and rhythm, normal S1 and S2, no gallops, no murmurs, no rubs ABDOMEN: Soft, nontender. No hepatosplenomegaly, normal bowel sounds, no guarding or rigidity. EXTREMITIES: No clubbing, no edema, no cyanosis, 2+ pulses and upper and lower extremities. MUSCULOSKELETAL: Muscle strength and tone normal. SPINE: No scoliosis or deformity SKIN: No rashes CENTRAL NERVOUS SYSTEM: Alert and oriented -3. No focal deficits, tone is normal in all 4 extremities. PSYCHIATRIC: Alert and oriented -3. Appropriate affect. Intact judgment and insight. Results - Laboratory Findings CBC and BMP: 01/04/21 05:21 05/11/21 05:21 PT/INR, D-dimer PT 12.4 sec (9.0-12.0) H 01/01/21 11:02 INR 1.2 (<1.2) H 01/01/21 11:02 Abnormal lab findings: Abnormal Labs 01/01/21 01/01/21 01/01/21 11:01 11:02 11:02 WBC RBC 3.42 L Hgb 10.2 L Hct 33.3 L MCV MCHC 30.7 L RDW PT 12.4 H INR 1.2 H Chloride Carbon Dioxide BUN Creatinine Est GFR (CKD-EPI)AfAm Est GFR (CKD-EPI)NonAf Glucose Calcium AST ALT Ur Leukocyte Esterase Large H Urine WBC 25 H Urine Mucus Rare H 01/01/21 01/02/21 01/03/21 11:02 05:09 04:55 WBC RBC Hgb Hct MCV MCHC RDW PT INR Chloride 95 L 96 L Carbon Dioxide 33 H 39 H 38 H BUN 23 H Creatinine 1.44 H Est GFR (CKD-EPI)AfAm Est GFR (CKD-EPI)NonAf Glucose 109 H 118 H 114 H Calcium AST 63 H ALT 54 H Ur Leukocyte Esterase Urine WBC Urine Mucus 01/04/21 01/04/21 05:21 05:21 WBC 4.46 L RBC 3.15 L Hgb 9.3 L Hct 31.8 L MCV 101.0 H MCHC 29.2 L RDW 14.8 H PT INR Chloride Carbon Dioxide 39.6 H BUN Creatinine Est GFR (CKD-EPI)AfAm 59.3 L Est GFR (CKD-EPI)NonAf 51.2 L Glucose Calcium 8.5 L AST ALT Ur Leukocyte Esterase Urine WBC Urine Mucus - Diagnostic Findings Chest x-ray: report reviewed, image reviewed Additional studies: EKG reviewed Assessment and Plan Plan: Assessment: #1. Acute on chronic hypoxic respiratory failure related to acute exacerbation of systolic CHF, COVID-19 PCR was negative, pro-calcitonin level was low, doubt possibility of underlying bacterial pneumonia #2. Acute urinary tract infection related to pseudomonas aeruginosa, she is currently on Omnicef #3. History of ischemic cardiomyopathy with EF of 30-35%, status post AICD placement #4. History of COPD on home oxygen #5. Former smoker patient carries 50 years of smoking history of 2 packs a day, currently in remission #6. Chronic A. fib on Xarelto #7. Hypertension #8. Hyperlipidemia #9. Depression Plan: We'll continue diuretics Doubt possibility of underlying pneumonia Chest x-rays have been reviewed, labs reviewed Patient presentation is more consistent with acute exacerbation of CHF Continue current antibiotics for underlying urinary tract infection related to pseudomonas aeruginosa We'll continue to follow follow-up chest x-ray Follow-up electrolytes in renal profile in the a.m. I performed a history & physical examination of the patient and discussed their management with my nurse practitioner, Radha Nunes. I reviewed the nurse practitioner's note and agree with the documented findings and plan of care. Lung sounds are positive fordiminished breath sounds throughout the lung camp. The findings and the impression was discussed with the patient. I attest to the documentation by the nurse practitioner. Time with Patient: Greater than 30
[2021-01-04 11:15] VITALS: BMI 28.7
--- NOTE | 2021-01-04 12:05 | P.PN ---
Subjective Progress Note Date: 01/04/21 HISTORY OF PRESENT ILLNESS: 01/03/2021 Patient examined this morning at the bedside. Patient denies chest pain or pressure. Patient states his shortness of breath has improved. Patient remains on IV Lasix 40 mg every 8 hours. Creatinine yesterday 1.1. Creatinine today 1.44. Repeat chest x-ray this morning reveals bilateral airspace disease with interstitial infiltrates correlate for CHF versus interstitial pneumonia. Blood pressure 112/58. Heart rate in the 60s. He is afebrile. 01/04/2021 Patient examined this morning at the bedside. Patient states he feels worse than yesterday. He states he continues to have a lot of coughing and phlegm production. He remains on oral lasix. He is on 3 L nasal cannula with oxygen saturations greater than 92%. Blood pressure 122/67. He is afebrile. BUN 25. Creatinine 1.30. Fluid balance in the last 24 hours is -1300 mL. PHYSICAL EXAM: VITAL SIGNS: Reviewed. GENERAL: Well-developed in no acute distress. NECK: Supple. No JVD or thyromegaly LUNGS: Respirations even and unlabored. Lungs diminished bilaterally with expiratory wheezing. HEART: Irregular rate and rhythm. S1 and S2 heard. EXTREMITIES: Normal range of motion. No clubbing or cyanosis. Peripheral pulses intact. No lower extremity edema ASSESSMENT: Acute exacerbation of chronic systolic heart failure Coronary artery disease Ischemic cardiomyopathy, ejection fraction 30-35% Chronic atrial fibrillation, on anticoagulation with Xarelto Hypertension Hyperlipidemia History of alcohol abuse PLAN: Continue current cardiac medications Continue oral lasix to 80mg BID Monitor kidney function Accurate I&O Daily weights Consult pulmonary for further evaluation Patient states he does not follow with a catering barista and only sees a physician that comes to his house. Patient may follow up post discharge with Dr. Barrios Further recommendations pending patient course Nurse practitioner note has been reviewed by physician. Signing provider agrees with the documented findings, assessment, and plan of care. Objective - Vital Signs Vital signs: Vital Signs Temp 98.3 F 01/04/21 07:07 Pulse 72 01/04/21 11:30 Resp 16 01/04/21 08:00 BP 122/67 01/04/21 07:07 Pulse Ox 98 01/04/21 07:07 Intake & Output 01/03/21 01/04/21 01/04/21 18:59 06:59 18:59 Intake Total 436 118 Output Total 620 1125 325 Balance -101 -5596 -661 Weight 85.7 kg 85.7 kg Intake: Oral 436 118 Output: Urine 620 1125 325 Other: Voiding Method Bedside Commode Bedside Commode Bedside Commode Urinal Urinal Urinal # Voids 3 1 # Bowel Movements 1 1 1 - Labs CBC & Chem 7: 01/04/21 05:21 01/04/21 05:21 Labs: Abnormal Lab Results - Last 24 Hours (Table) 01/04/21 01/04/21 Range/Units 05: 05:21 WBC 4.46 L (4.50-10.00) X 10*3/uL RBC 3.15 L (4.40-5.60) X 10*6/uL Hgb 9.3 L (13.0-17.0) g/dL Hct 31.8 L (39.6-50.0) % MCV 101.0 H (80.0-97.0) fL MCHC 29.2 L (32.0-37.0) g/dL RDW 14.8 H (11.5-14.5) % Carbon Dioxide 39.6 H (21.6-31.8) mmol/L Est GFR (CKD-EPI)AfAm 59.3 L (60.0-200.0) Est GFR (CKD-EPI)NonAf 51.2 L (60.0-200.0) Calcium 8.5 L (8.7-10.3) mg/dL Microbiology - Last 24 Hours (Table) 01/01/21 11:01 Urine Culture - Final Urine,Voided Pseudomonas aeruginosa 01/01/21 11:00 Blood Culture - Preliminary Blood No Growth after 48 hours 01/01/21 11:02 Blood Culture - Preliminary Blood No Growth after 48 hours
[2021-01-04] MEDS ORDERED: LEVOFLOXACIN 500MG-D5W PMX 500 MG in DEXTROSE/WATER 1 100ML.BAG IVPB SCH (15:15)
[2021-01-04] MEDS ORDERED: LEVOFLOXACIN 250MG-D5W PMX 250 MG in DEXTROSE/WATER 1 50ML.BAG IVPB SCH (16:00)
--- NOTE | 2021-01-04 17:04 | PN ---
PROGRESS NOTE DATE OF SERVICE: 01/04/2021 This 80-year-old gentleman who was admitted with CHF, acute exacerbation, also had some wheezing. The patient also had possible bilateral pneumonia, Gram-negative. The patient also had COPD. Dr. Hurley is following the patient closely. Most recent chest x-ray was reviewed personally by me. Past medical history reviewed. REVIEW OF SYSTEMS: CARDIOVASCULAR SYSTEM: No angina, palpitations. RESPIRATORY SYSTEM: As mentioned earlier. GI: As mentioned earlier. : No dysuria or retention. NERVOUS SYSTEM: No numbness, weakness. MEDICATIONS: Current medications are reviewed and include DuoNeb, Zyloprim, Cordarone, Lipitor, Pulmicort, Omnicef, Lexapro, Lasix. Doses are reviewed. PHYSICAL EXAMINATION: Patient alert and oriented x3. Pulse 72, blood pressure 122/67, respirations 16, temperature 98.3, pulse ox 98% on 3 L. HEENT: Conjunctivae normal. NECK: No jugular venous distention. CARDIOVASCULAR SYSTEM: S1, S2 muffled. RESPIRATORY SYSTEM: Breath sounds diminished at the bases. Bilateral scattered rhonchi and crackles. ABDOMEN: Soft, non-tender. LEGS: No edema. No swelling. NERVOUS SYSTEM: No focal deficit. LABS: WBC 4.46, hemoglobin 9.3. Sodium 142, potassium 4.4. UA has large leukocyte esterase. ASSESSMENT: 1. Congestive heart failure, acute exacerbation, with acute on chronic systolic dysfunction, ejection fraction 30% to 35%. 2. Possible bilateral pneumonia, possibly Gram-negative. 3. Possible acute urinary tract infection with Pseudomonas aeruginosa which is polysensitive. 4. Possible chronic obstructive pulmonary disease, acute exacerbation. 5. Chronic medical debility. 6. Persistent atrial fibrillation, rate controlled. 7. Acute urinary tract infection, present on admission. 8. Chronic deep vein thrombosis. 9. Acute renal failure with acute tubular necrosis. 10.Gastroesophageal reflux disease. 11.Hyperlipidemia. 12.Chronic obstructive pulmonary disease history. 13.Benign prostatic hypertrophy. 14.Chronic gout. 15.Hypertension. 16.Hypothyroidism. 17.Severe pulmonary hypertension. 18.Moderate mitral and tricuspid valve regurgitation. 19.History of atrial fibrillation. 20.History of deep venous thrombosis. 21.History of paroxysmal atrial fibrillation. 22.History of automated implantable cardioverter defibrillator. 23.History of pacemaker. 24.History of depression. 25.Remote history of nicotine dependence. RECOMMENDATIONS AND DISCUSSION: I recommend to continue current medications, continue symptomatic treatment. Otherwise, I recommend changing the antibiotics to Levaquin at this time and continue to monitor. Guarded prognosis because of multiple complex medical issues. Further recommendations to follow. See orders for details. Dr. Hurley's input appreciated. Continue the bronchodilators. MMODL / IJN: [id number] / MTDD
[2021-01-04] MEDS: CHOLECALCIFEROL 25 MCG (1000 IU) TABLET PO SCH (20:38)
[2021-01-04] MEDS: allopurinoL 100 MG TAB PO SCH (20:38)
[2021-01-04] MEDS: MAGNESIUM OXIDE 400 MG TAB PO SCH (20:39)
[2021-01-04] MEDS: RIVAROXABAN 20 MG TAB PO SCH (20:39)
[2021-01-04] MEDS: TAMSULOSIN 0.4 MG CAP.ER.24H PO SCH (20:39)
[2021-01-05] MEDS: LEVOTHYROXINE 25 MCG TAB PO SCH (05:38)
[2021-01-05] MEDS: guaiFENesin 600 MG TABLET.ER PO SCH ×4 (07:19→21:36)
[2021-01-05] MEDS: ESCITALOPRAM 10 MG TAB PO SCH (07:19)
[2021-01-05] MEDS: METOPROLOL TARTRATE 50 MG TAB PO SCH ×2 (07:19→21:36)
[2021-01-05] MEDS: POTASSIUM CHLORIDE ER 20 MEQ TAB.ER PO SCH ×2 (07:19→21:37)
[2021-01-05] MEDS: AMIODARONE 200 MG TAB PO SCH (07:19)
[2021-01-05] MEDS: PANTOPRAZOLE 40 MG TABLET PO SCH (07:19)
[2021-01-05] MEDS: ATORVASTATIN 20 MG TAB PO SCH (07:20)
[2021-01-05] MEDS: CYANOCOBALAMIN 500 MCG TAB PO SCH (07:20)
[2021-01-05] MEDS: FUROSEMIDE 80 MG TAB PO SCH ×2 (07:20→16:00)
[2021-01-05] MEDS: SILDENAFIL 20 MG TAB PO SCH (07:21)
--- NOTE | 2021-01-05 07:27 | XR ---
EXAMINATION TYPE: XR chest 1V portable DATE OF EXAM: 01/05/2021 HISTORY: Shortness of breath. COMPARISON: 01/04/2021 TECHNIQUE: Single view of the chest is submitted. FINDINGS: Demonstrated are scattered senescent parenchymal change. Patchy basilar infiltrates noted left greater than right. No significant change appreciated. The heart is stable. Pulmonary venous congestion unchanged. Hilar and mediastinal structures are within normal limits. Degenerative changes are seen of the dorsal spine. IMPRESSION: 1. Patchy basilar infiltrates noted left greater than right. No significant change appreciated.
[2021-01-05] MEDS: IPRATROPIUM-ALBUTEROL 3 ML NEB INHALATION SCH ×4 (07:30→21:18)
[2021-01-05] MEDS: BUDESONIDE 1 MG/2 ML NEBU INHALATION SCH ×2 (07:30→21:18)
[2021-01-05 08:57] LABS: African American GFR (CKD) 52 (>60 ml/min/1.73 sqM); Anion Gap 7 mmol/L; Blood Urea Nitrogen 29 mg/dL (9-20); Calcium 9.1 mg/dL (8.4-10.2); Chloride 95 mmol/L (98-107); Glucose 119 mg/dL (74-99); Non-African American GFR(CKD) 45 (>60 ml/min/1.73 sqM); Potassium 4.4 mmol/L (3.5-5.1); Sodium 142 mmol/L (137-145)
[2021-01-05 09:20] LABS: Carbon Dioxide 40 mmol/L (22-30)
--- NOTE | 2021-01-05 12:08 | P.PN ---
Subjective Progress Note Date: 01/05/21 Principal diagnosis: Acute on chronic hypoxic respiratory failure secondary to systolic congestive heart failure 80-year-old white male patient with past medical history of chronic CHF with systolic dysfunction, ischemic cardiomyopathy with a prior [place], ejection fraction of 30-35%, status post AICD placement, chronic A. fib, hypertension, hyperlipidemia, COPD on home oxygen, former smoker, patient used to smoke 2 packs a day for over 50 years, who was admitted to the hospital on 01/04/2021 with complaints of increasing shortness of breath, was progressive in nature, she did have occasional cough and sometimes she would produce phlegm. Denied any fever, denied any chills. Apparently patient stopped taking his Lasix for an unknown reason. His home dose Lasix is 60 mg twice daily. He is on Xarelto for chronic anticoagulation for his chronic A. fib. Chest x-ray in emergency department showed cardiomegaly with increased pulmonary markings and diffuse increased lung markings, consistent with acute exacerbation of CHF, atypical pulmonary edema, and pneumonia in the left base was also a consideration. Initial lab work showed a white blood cell count of 4.5, hemoglobin is 10.2, INR is 1.2, electrolytes were unremarkable, CO2 was 33, BUN is 17, creatinine 0.98, proBNP was elevated at 3800 and EGD, pro-calcitonin level was negative at 0.07, urinalysis showed large amount of leuks, and increased white blood cells. He was checked for COVID-19 per PCR and was found to be negative. Urine culture did show pseudomonas aeruginosa, blood cultures have been negative. he was placed on Omnicef. And his Lasix is currently at 80 mg twice daily. He is in - 1.3 L net fluid balance over the last 24 hours, his weight is down 3.8 kg since admission. He is currently satting 98% on 3 L, his been afebrile, he is breathing comfortably. Lung sounds reveal diffuse crackles throughout The patient is seen today 01/05/2021 follow-up on the regular medical floor. He is currently sitting up in a chair at the bedside. Awake and alert in no acute distress. Breathing a bit better today compared to yesterday. He's 99% O2 saturation on 3 L/m per nasal cannula. Afebrile. Hemodynamically stable. He remains on Lasix 80 mg twice a day. Chest x-ray showing patchy basilar infiltrates left greater than right. No significant change. Urine culture positive for pseudomonas aeruginosa. Blood cultures revealing no growth. Sodium 142. Potassium 4.4. Creatinine 1.44. He remains on diuretics, bronchodilators, Levaquin. Anticoagulated with Xarelto. Objective - Vital Signs Vital signs: Vital Signs Temp 98.5 F 01/05/21 07:00 Pulse 70 01/05/21 11:30 Resp 16 01/05/21 07:00 BP 131/76 01/05/21 07:00 Pulse Ox 99 01/05/21 07:00 Intake & Output 01/04/21 01/05/21 01/05/21 18:59 06:59 18:59 Intake Total 736 180 Output Total 425 1000 Balance 311 -1000 180 Weight 85.7 kg 85.3 kg Intake: Oral 736 180 Output: Urine 425 1000 Other: Voiding Method Bedside Commode Bedside Commode Bedside Commode Urinal Urinal Urinal # Voids 1 # Bowel Movements 1 - Exam GENERAL EXAM: Alert, pleasant 80-year-old gentleman, on 3 L nasal cannula, comfortable in no apparent distress. HEAD: Normocephalic. EYES: Normal reaction of pupils, equal size. NOSE: Clear with pink turbinates. THROAT: No erythema or exudates. NECK: No masses, no JVD. CHEST: No chest wall deformity. LUNGS: Equal air entry with echoes in the posterior bases left greater than right. CVS: S1 and S2 normal with no audible murmur, regular rhythm. ABDOMEN: No hepatosplenomegaly, normal bowel sounds, no guarding or rigidity. SPINE: No scoliosis or deformity SKIN: No rashes CENTRAL NERVOUS SYSTEM: No focal deficits, tone is normal in all 4 extremities. EXTREMITIES: There is no peripheral edema. No clubbing, no cyanosis. Periphera l pulses are intact. - Labs CBC & Chem 7: 01/04/21 05:21 01/05/21 06:16 Labs: Abnormal Lab Results - Last 24 Hours (Table) 01/05/21 Range/Units 06:16 Chloride 95 L (98-107) mmol/L Carbon Dioxide 40 H (22-30) mmol/L BUN 29 H (9-20) mg/dL Creatinine 1.44 H (0.66-1.25) mg/dL Glucose 119 H (74-99) mg/dL Microbiology - Last 24 Hours (Table) 01/01/21 11:00 Blood Culture - Preliminary Blood No Growth after 72 hours 01/01/21 11:02 Blood Culture - Preliminary Blood No Growth after 72 hours Assessment and Plan Assessment: 1 Acute on chronic hypoxic respiratory failure related to acute exacerbation of systolic CHF, COVID-19 PCR was negative, pro-calcitonin level was low, doubt possibility of underlying bacterial pneumonia 2 Acute urinary tract infection related to pseudomonas aeruginosa, she is currently on Omnicef 3 History of ischemic cardiomyopathy with EF of 30-35%, status post AICD placement 4 History of COPD on home oxygen 5 Former smoker patient carries 50 years of smoking history of 2 packs a day, currently in remission 6 Chronic A. fib on Xarelto 7 Hypertension 8 Hyperlipidemia 9 Depression Plan: The patient was seen and evaluated by Dr. Hurley Chest x-ray and labs reviewed Continue the current treatment plan Titrate down the FiO2 as tolerated Increase his activity as tolerated We will continue to follow I, the cosigning physician, performed a history & physical examination of the patient. Lungs sounds crackles in the posterior bases left greater than right. Maintaining good O2 saturations in the 90s on 3 L/m per nasal cannula. I discussed the assessment and plan of care with my nurse practitioner, Amanda Seay. I attest to the above note as dictated by her.
--- NOTE | 2021-01-05 14:01 | P.PN ---
Subjective Progress Note Date: 01/05/21 HISTORY OF PRESENT ILLNESS: 01/03/2021 Patient examined this morning at the bedside. Patient denies chest pain or pressure. Patient states his shortness of breath has improved. Patient remains on IV Lasix 40 mg every 8 hours. Creatinine yesterday 1.1. Creatinine today 1.44. Repeat chest x-ray this morning reveals bilateral airspace disease with interstitial infiltrates correlate for CHF versus interstitial pneumonia. Blood pressure 112/58. Heart rate in the 60s. He is afebrile. 01/04/2021 Patient examined this morning at the bedside. Patient states he feels worse than yesterday. He states he continues to have a lot of coughing and phlegm production. He remains on oral lasix. He is on 3 L nasal cannula with oxygen saturations greater than 92%. Blood pressure 122/67. He is afebrile. BUN 25. Creatinine 1.30. Fluid balance in the last 24 hours is -1300 mL. 01/05/2021 Patient examined this morning at the bedside. Patient states his breathing feels slightly better today. Chest x-ray today reveals patchy basilar infiltrates noted left greater than right. No significant change appreciated. Patient remains on oral Lasix. PHYSICAL EXAM: VITAL SIGNS: Reviewed. GENERAL: Well-developed in no acute distress. NECK: Supple. No JVD or thyromegaly LUNGS: Respirations even and unlabored. Lungs diminished bilaterally with crackles to the left lung base HEART: Irregular rate and rhythm. S1 and S2 heard. EXTREMITIES: Normal range of motion. No clubbing or cyanosis. Peripheral pulses intact. No lower extremity edema ASSESSMENT: Acute exacerbation of chronic systolic heart failure Coronary artery disease Ischemic cardiomyopathy, ejection fraction 30-35% Chronic atrial fibrillation, on anticoagulation with Xarelto Hypertension Hyperlipidemia History of alcohol abuse PLAN: Continue current cardiac medications Continue oral lasix to 80mg BID Monitor kidney function Accurate I&O Daily weights Patient states he does not follow with a assurance specialist and only sees a physician that comes to his house. Patient may follow up post discharge with Dr. Barrios Further recommendations pending patient course Nurse practitioner note has been reviewed by physician. Signing provider agrees with the documented findings, assessment, and plan of care. Objective - Vital Signs Vital signs: Vital Signs Temp 98.5 F 01/05/21 07:00 Pulse 70 01/05/21 11:30 Resp 1 L 01/05/21 13:32 BP 131/76 01/05/21 07:00 Pulse Ox 99 01/05/21 07:00 Intake & Output 01/04/21 01/05/21 01/05/21 18:59 06:59 18:59 Intake Total 736 180 Output Total 425 1000 Balance 311 -1000 180 Weight 85.7 kg 85.3 kg Intake: Oral 736 180 Output: Urine 425 1000 Other: Voiding Method Bedside Commode Bedside Commode Bedside Commode Urinal Urinal Urinal # Voids 1 # Bowel Movements 1 - Labs CBC & Chem 7: 01/04/21 05:21 01/05/21 06:16 Labs: Abnormal Lab Results - Last 24 Hours (Table) 01/05/21 Range/Units 06:16 Chloride 95 L (98-107) mmol/L Carbon Dioxide 40 H (22-30) mmol/L BUN 29 H (9-20) mg/dL Creatinine 1.44 H (0.66-1.25) mg/dL Glucose 119 H (74-99) mg/dL Microbiology - Last 24 Hours (Table) 01/01/21 11:00 Blood Culture - Preliminary Blood No Growth after 96 hours 01/01/21 11:02 Blood Culture - Preliminary Blood No Growth after 96 hours
[2021-01-05] MEDS: LEVOFLOXACIN 250 MG TAB PO SCH (16:00)
--- NOTE | 2021-01-05 18:40 | PN ---
PROGRESS NOTE DATE OF SERVICE: 01/05/2021 This 80-year-old gentleman who was admitted with CHF, acute exacerbation, is being closely monitored. Patient was thought to have some bilateral pneumonia, also. The patient also had a chest x-ray done today which was reviewed personally by me. It showed persistent pleural effusions and infiltrates, especially on the left side. PHYSICAL EXAMINATION: Alert and oriented x2. Pulse 64, blood pressure 114/53, respirations 16, temperature 98.7, pulse ox 98% on 3 L. HEENT: Conjunctivae normal. NECK: No jugular venous distention. CARDIOVASCULAR SYSTEM: S1, S2 muffled. RESPIRATORY SYSTEM: Breath sounds diminished at the bases. A few scattered rhonchi and crackles. ABDOMEN: Soft, non-tender. LEGS: No edema. No swelling. NERVOUS SYSTEM: No focal deficit. LABS: WBC 4.6, hemoglobin 9.3, creatinine 1.44. ASSESSMENT: 1. Congestive heart failure, acute exacerbation, with acute on chronic systolic dysfunction, ejection fraction 30% to 35%. 2. Possible bilateral pneumonia, left more than the right, possibly Gram-negative. 3. Possible acute urinary tract infection with Pseudomonas aeruginosa which is polysensitive. 4. Chronic obstructive pulmonary disease, acute exacerbation. 5. Chronic medical debility. 6. Persistent atrial fibrillation, rate controlled. 7. Acute urinary tract infection, present on admission. 8. Chronic deep vein thrombosis. 9. Acute renal failure with acute tubular necrosis. 10.Gastroesophageal reflux disease. 11.Hyperlipidemia. 12.Chronic obstructive pulmonary disease. 13.Benign prostatic hypertrophy. 14.Chronic gout. 15.Hypertension. 16.Hypothyroidism. 17.Severe pulmonary hypertension. 18.Moderate mitral and tricuspid regurgitation. 19.History of atrial fibrillation. 20.History of deep venous thrombosis. 21.History of paroxysmal atrial fibrillation. 22.History of automated implantable cardioverter defibrillator. 23.History of pacemaker. 24.History of depression. 25.Remote history of nicotine dependence. RECOMMENDATIONS AND DISCUSSION: I recommend to continue current medications, continue with the monitoring, symptomatic treatment. Otherwise at this time I recommend continuing with the diuretic and continue with Xarelto. Follow-up labs will be ordered tomorrow. The urine culture showed Pseudomonas aeruginosa. The patient is on p.o. Levaquin at this time. Continue to monitor. Further recommendations to follow. MMODL / IJN: [id number] /
[2021-01-05] MEDS: allopurinoL 100 MG TAB PO SCH (21:36)
[2021-01-05] MEDS: CHOLECALCIFEROL 25 MCG (1000 IU) TABLET PO SCH (21:36)
[2021-01-05] MEDS: MAGNESIUM OXIDE 400 MG TAB PO SCH (21:37)
[2021-01-05] MEDS: TAMSULOSIN 0.4 MG CAP.ER.24H PO SCH (21:37)
[2021-01-05] MEDS: RIVAROXABAN 20 MG TAB PO SCH (21:40)
[2021-01-06] MEDS: LEVOTHYROXINE 25 MCG TAB PO SCH (05:46)
[2021-01-06] MEDS: BUDESONIDE 1 MG/2 ML NEBU INHALATION SCH (07:32)
[2021-01-06] MEDS: IPRATROPIUM-ALBUTEROL 3 ML NEB INHALATION SCH ×3 (07:32→15:07)
[2021-01-06 07:50] VITALS: RESP 18
[2021-01-06] MEDS: FUROSEMIDE 80 MG TAB PO SCH ×2 (08:58→16:05)
[2021-01-06] MEDS: POTASSIUM CHLORIDE ER 20 MEQ TAB.ER PO SCH (08:58)
[2021-01-06] MEDS: CYANOCOBALAMIN 500 MCG TAB PO SCH (08:58)
[2021-01-06] MEDS: ATORVASTATIN 20 MG TAB PO SCH (08:58)
[2021-01-06] MEDS: METOPROLOL TARTRATE 50 MG TAB PO SCH (08:58)
[2021-01-06] MEDS: PANTOPRAZOLE 40 MG TABLET PO SCH (08:58)
[2021-01-06] MEDS: guaiFENesin 600 MG TABLET.ER PO SCH ×2 (08:58→12:38)
[2021-01-06] MEDS: AMIODARONE 200 MG TAB PO SCH (08:58)
[2021-01-06] MEDS: ESCITALOPRAM 10 MG TAB PO SCH (08:59)
[2021-01-06] MEDS: SILDENAFIL 20 MG TAB PO SCH (08:59)
--- NOTE | 2021-01-06 11:28 | P.PN ---
Subjective Progress Note Date: 01/06/21 HISTORY OF PRESENT ILLNESS: 01/03/2021 Patient examined this morning at the bedside. Patient denies chest pain or pressure. Patient states his shortness of breath has improved. Patient remains on IV Lasix 40 mg every 8 hours. Creatinine yesterday 1.1. Creatinine today 1.44. Repeat chest x-ray this morning reveals bilateral airspace disease with interstitial infiltrates correlate for CHF versus interstitial pneumonia. Blood pressure 112/58. Heart rate in the 60s. He is afebrile. 01/04/2021 Patient examined this morning at the bedside. Patient states he feels worse than yesterday. He states he continues to have a lot of coughing and phlegm production. He remains on oral lasix. He is on 3 L nasal cannula with oxygen saturations greater than 92%. Blood pressure 122/67. He is afebrile. BUN 25. Creatinine 1.30. Fluid balance in the last 24 hours is -1300 mL. 01/05/2021 Patient examined this morning at the bedside. Patient states his breathing feels slightly better today. Chest x-ray today reveals patchy basilar infiltrates noted left greater than right. No significant change appreciated. Patient remains on oral Lasix. 01/06/2021 Patient examined this morning at the bedside. Patient states his breathing feels "decent". He denies chest pain or pressure. He remains on oral lasix. Vital signs are stable. PHYSICAL EXAM: VITAL SIGNS: Reviewed. GENERAL: Well-developed in no acute distress. NECK: Supple. No JVD or thyromegaly LUNGS: Respirations even and unlabored. Lungs diminished bilaterally with expiratory wheezing noted. HEART: Irregular rate and rhythm. S1 and S2 heard. EXTREMITIES: Normal range of motion. No clubbing or cyanosis. Peripheral pulses intact. No lower extremity edema ASSESSMENT: Acute exacerbation of chronic systolic heart failure Coronary artery disease Ischemic cardiomyopathy, ejection fraction 30-35% Chronic atrial fibrillation, on anticoagulation with Xarelto Hypertension Hyperlipidemia History of alcohol abuse PLAN: Continue current cardiac medications Continue oral lasix to 80mg BID Monitor kidney function Accurate I&O Daily weights Patient states he does not follow with a genetic scientist and only sees a physician that comes to his house. Patient may follow up post discharge with Dr. Barrios We will sign off. Please reconsult if needed. Nurse practitioner note has been reviewed by physician. Signing provider agrees with the documented findings, assessment, and plan of care. Objective - Vital Signs Vital signs: Vital Signs Temp 98.2 F 01/06/21 07:00 Pulse 67 01/06/21 07:45 Resp 18 01/06/21 07:00 BP 135/65 01/06/21 07:00 Pulse Ox 97 01/06/21 07:00 Intake & Output 01/05/21 01/06/21 01/06/21 18:59 06:59 18:59 Intake Total 180 600 Output Total 550 700 Balance -370 -100 Weight 85.3 kg 85.5 kg Intake: Oral 180 600 Output: Urine 550 700 Other: Voiding Method Bedside Commode Urinal - Labs CBC & Chem 7: 01/04/21 05:21 01/05/21 06:16 Labs: Microbiology - Last 24 Hours (Table) 01/01/21 11:00 Blood Culture - Preliminary Blood No Growth after 96 hours 01/01/21 11:02 Blood Culture - Preliminary Blood No Growth after 96 hours
--- NOTE | 2021-01-06 12:08 | P.PN ---
Subjective Progress Note Date: 01/06/21 Principal diagnosis: Acute on chronic hypoxic respiratory failure secondary to systolic congestive heart failure 80-year-old white male patient with past medical history of chronic CHF with systolic dysfunction, ischemic cardiomyopathy with a prior [place], ejection fraction of 30-35%, status post AICD placement, chronic A. fib, hypertension, hyperlipidemia, COPD on home oxygen, former smoker, patient used to smoke 2 packs a day for over 50 years, who was admitted to the hospital on 01/04/2021 with complaints of increasing shortness of breath, was progressive in nature, she did have occasional cough and sometimes she would produce phlegm. Denied any fever, denied any chills. Apparently patient stopped taking his Lasix for an unknown reason. His home dose Lasix is 60 mg twice daily. He is on Xarelto for chronic anticoagulation for his chronic A. fib. Chest x-ray in emergency department showed cardiomegaly with increased pulmonary markings and diffuse increased lung markings, consistent with acute exacerbation of CHF, atypical pulmonary edema, and pneumonia in the left base was also a consideration. Initial lab work showed a white blood cell count of 4.5, hemoglobin is 10.2, INR is 1.2, electrolytes were unremarkable, CO2 was 33, BUN is 17, creatinine 0.98, proBNP was elevated at 3800 and EGD, pro-calcitonin level was negative at 0.07, urinalysis showed large amount of leuks, and increased white blood cells. He was checked for COVID-19 per PCR and was found to be negative. Urine culture did show pseudomonas aeruginosa, blood cultures have been negative. he was placed on Omnicef. And his Lasix is currently at 80 mg twice daily. He is in - 1.3 L net fluid balance over the last 24 hours, his weight is down 3.8 kg since admission. He is currently satting 98% on 3 L, his been afebrile, he is breathing comfortably. Lung sounds reveal diffuse crackles throughout The patient is seen today 01/05/2021 follow-up on the regular medical floor. He is currently sitting up in a chair at the bedside. Awake and alert in no acute distress. Breathing a bit better today compared to yesterday. He's 99% O2 saturation on 3 L/m per nasal cannula. Afebrile. Hemodynamically stable. He remains on Lasix 80 mg twice a day. Chest x-ray showing patchy basilar infiltrates left greater than right. No significant change. Urine culture positive for pseudomonas aeruginosa. Blood cultures revealing no growth. Sodium 142. Potassium 4.4. Creatinine 1.44. He remains on diuretics, bronchodilators, Levaquin. Anticoagulated with Xarelto. The patient is seen today 01/06/2021 in follow-up on the regular medical floor. He is currently resting comfortably in bed. Awake and alert in no acute distress. Maintaining good O2 saturations in the 90s on 3 L/m per nasal cannula. Denies any worsening shortness of breath, cough or congestion. He remains diminished more so on the left lung base. Urine culture positive for pseudomonas aeruginosa. Blood cultures reveal no growth. Sodium 142. Potassium 4.4. Bicarb 40. Creatinine 1.44. He remains on bronchodilators, diuretics, antibiotics in the form of Levaquin. Anticoagulated with Xarelto. Follow-up chest x-ray pending. Currently in a negative balance. Objective - Vital Signs Vital signs: Vital Signs Temp 98.2 F 01/06/21 07:00 Pulse 70 01/06/21 11:53 Resp 18 01/06/21 07:00 BP 135/65 01/06/21 07:00 Pulse Ox 97 01/06/21 07:00 Intake & Output 01/05/21 01/06/21 01/06/21 18:59 06:59 18:59 Intake Total 180 600 Output Total 550 700 200 Balance -370 -100 -200 Weight 85.3 kg 85.5 kg Intake: Oral 180 600 Output: Urine 550 700 200 Other: Voiding Method Bedside Commode Bedside Commode Urinal Urinal # Bowel Movements 1 - Exam GENERAL EXAM: Alert, pleasant 80-year-old gentleman, on 3 L nasal cannula, comfortable in no apparent distress. HEAD: Normocephalic. EYES: Normal reaction of pupils, equal size. NOSE: Clear with pink turbinates. THROAT: No erythema or exudates. NECK: No masses, no JVD. CHEST: No chest wall deformity. LUNGS: Equal air entry with crackles in the posterior bases left greater than right. Diminished. CVS: S1 and S2 normal with no audible murmur, regular rhythm. ABDOMEN: No hepatosplenomegaly, normal bowel sounds, no guarding or rigidity. SPINE: No scoliosis or deformity SKIN: No rashes CENTRAL NERVOUS SYSTEM: No focal deficits, tone is normal in all 4 extremities. EXTREMITIES: There is no peripheral edema. No clubbing, no cyanosis. Peripheral pulses are intact. - Labs CBC & Chem 7: 01/04/21 05:21 01/05/21 06:16 Labs: Microbiology - Last 24 Hours (Table) 01/01/21 11:00 Blood Culture - Preliminary Blood No Growth after 96 hours 01/01/21 11:02 Blood Culture - Preliminary Blood No Growth after 96 hours Assessment and Plan Assessment: 1 Acute on chronic hypoxic respiratory failure related to acute exacerbation of systolic CHF, COVID-19 PCR was negative, pro-calcitonin level was low, doubt possibility of underlying bacterial pneumonia 2 Acute urinary tract infection related to pseudomonas aeruginosa, she is currently on Levaquin 3 History of ischemic cardiomyopathy with EF of 30-35%, status post AICD placement 4 History of COPD on home oxygen 5 Former smoker patient carries 50 years of smoking history of 2 packs a day, currently in remission 6 Chronic A. fib on Xarelto 7 Hypertension 8 Hyperlipidemia 9 Depression Plan: The patient was seen and evaluated by Dr. Hurley Follow-up chest x-ray pending Continue the current treatment plan Titrate down the FiO2 as tolerated Possible discharge later today or in the a.m. I, the cosigning physician, performed a history & physical examination of the patient. Lungs sounds crackles in the posterior bases left greater than right. Diminished. Maintaining good O2 saturations in the 90s on 3 L/m per nasal cannula. I discussed the assessment and plan of care with my nurse practitioner, Amanda Seay. I attest to the above note as dictated by her.
--- NOTE | 2021-01-06 12:23 | P.DS ---
Providers Date of admission: 01/03/21 21:48 Expected date of discharge: 01/06/21 Attending physician: Jori Garcia Consults: 01/04/21 08:06 Consult Physician Routine Consulting Provider: Tonio Diop Consult Reason/Comments: SOB Do you want consulting provider notified?: Yes Primary care physician: Diogenes Wall MD Hospital Course: Chief Complaint: Shortness of breath History of presenting complaint: This is a pleasant 80-year-old patient who follows with visiting physicians Dr. Wall. Chronic stable medical conditions include atrial fibrillation, , GERD, hyperlipidemia, coronary artery disease, cardiomyopathy, AICD, BPH. Patient lives with his daughter Brie. Normally uses a walker. Was drinking heavily up until July 2021. ex-smoker. Home oxygen-2 L 4 weeks ago was admitted to the hospital with with pneumonia, acute medical asthenia, acute kidney injury. , IV cefepime. Acute CHF. IV Lasix Also treated for COPD exacerbation Creatinine improved from 2.15 down to 1.46. Breathing improved. Patient now presents with increasing shortness of breath for last few days. He thinks he is bringing up some sputum does not bother color. Very slight cough. No fever no chills. Appetite is good. Patient sits up in a recliner and worse on lying down. Mild edema Admitted with CHF exacerbation, pneumonia. Put on IV Lasix. IV cefepime. Also to UTI with cystitis. Positive for pseudomonas. Today: Breathing much improved. Minimal cough. Oral intake fair. Feeling much better. Consultation: Dr. Hurley in part because from [facility] Past medical history to include: Atrial fibrillation, CHF EF 30-35%, DVT, GERD, GI bleed, hyperlipidemia, CO, cardiomyopathy, AICD, BPH, gait dysfunction using a walker, depression, moderate mitral regurgitation, moderate to severe tricuspid regurgitation, severe pulmonary hypertension. Home oxygen 2 L Social history: Patient is daughter Brie lives with him. Uses walker. Patient smoked for 57 years. Stopped in 2010. Was drinking heavily up until July 2021. Physical examination: VITAL SIGNS: 98.2, 58, 18, 135/65, 97% on 3 L GENERAL: Reclining in bed, comfortable EYES: Pupils equal. Conjunctiva normal. NECK: JVD raised; masses not palpable. HEART: First and second heart sounds are normal; mild edema. LUNGS: Respiratory rate normal; decreased breath sounds ABDOMEN: Soft, nontender, liver spleen not palpable, no masses palpable. PSYCH: AO 3, more affect normal MUSCULAR skeletal: Evidence of OA . kyphosis INVESTIGATIONS, reviewed in the clinical context: Today: Hemoglobin 9.3 potassium 4.4 creatinine 1.4 January 02: Potassium 3.9 creatinine 1.16 WBC 4.5 hemoglobin 10.2 platelets 201 potassium 4.7 creatinine 0.98 AST 63 ALT 54 proBNP 3880 UA positive for leukoesterase, WBC Coronavirus [PCR]-not detected Chest x-ray film personally reviewed by me-pulmonary edema, possible infiltrate EKG tracing personally reviewed by me-sinus rhythm, intraventricular block, some ST-T wave changes Previous testin12/13/2020: BUN 50 creatinine 1.July: 2-D echocardiogram: Moderate concentric LVH, EF 30-35%, wall motion abnormality, moderate MR, moderate to severe TR, severe pulmonary hypertension Assessment and plan: -Acute on Chronic congestive heart failure from systolic dysfunction EF 30-35%, improved IV Lasix 40 mg, every 8. Fluid restriction 1500 mL daily. Changed over to Lasix 80 mg twice a day -Possible pneumonia suspected gram-negative organism IV cefepime 2 g every 12-completed course -Acute UTI with cystitis from pseudomonas Complete course with Levaquin -Chronic medical debility, uses a walker at baseline PTOT -Persistent atrial fibrillation, rate controlled Follow telemetry, continue xarelto -Chronic DVT On xarelto -GERD Continue with Protonix -Hyperlipidemia Continue with Lipitor - COPD in a previous smoker- *Nebulized bronchodilators, , inhaled steroids, . Mucinex -BPH: Continue with Flomax -Chronic gout Continue with allopurinol -Essential hypertension Lopressor, -Hypothyroid Continue Synthroid -Severe pulmonary hypertension, secondary to COPD and CHF Continue revatio -Moderate mitral and tricuspid regurgitation Follow clinically Disposition: [facility] Plan - Discharge Summary Discharge Rx Participant: No New Discharge Prescriptions: New Furosemide [Lasix] 80 mg PO BID@0900,1600 tab Levofloxacin [Levaquin] 250 mg PO DAILY@1600 #3 tab Budesonide/Formoterol Fumarate [Symbicort 80-4.5 Mcg Inhaler] 1 puff INHALATION BID #1 inhaler Continue Cyanocobalamin (Vitamin B-12) [Vitamin B-12] 1,000 mcg PO DAILY Tamsulosin [Flomax] 0.4 mg PO HS Rivaroxaban [Xarelto] 20 mg PO HS Metoprolol Tartrate [Lopressor] 50 mg PO BID Potassium Chloride [Klor-Con 20] 20 meq PO BID Cholecalciferol (Vitamin D3) [Vitamin D3] 50 mcg PO HS Atorvastatin [Lipitor] 20 mg PO DAILY tab allopurinoL [Zyloprim] 100 mg PO HS Escitalopram [Lexapro] 10 mg PO DAILY Magnesium Gluconate [Magonate] 500 mg PO HS Levothyroxine Sodium [Synthroid] 25 mcg PO DAILY@0630 tab Amiodarone [Cordarone] 200 mg PO DAILY #0 tab Ipratropium/Albuter 20-100Mcg [Combivent Respimat 20-100Mcg Inhaler] 1 puff INHALATION RT-QID Pantoprazole Sodium [Protonix] 40 mg PO DAILY Sildenafil [Revatio] 20 mg PO DAILY Discontinued Furosemide [Lasix] 60 mg PO BID #0 Cefuroxime Axetil [Ceftin] 500 mg PO BID #10 tab Discharge Medication List Cholecalciferol (Vitamin D3) [Vitamin D3] 50 mcg PO HS 02/13/19 [History] Cyanocobalamin (Vitamin B-12) [Vitamin B-12] 1,000 mcg PO DAILY 02/13/19 [History] Metoprolol Tartrate [Lopressor] 50 mg PO BID 02/13/19 [History] Potassium Chloride [Klor-Con 20] 20 meq PO BID 02/13/19 [History] Rivaroxaban [Xarelto] 20 mg PO HS 02/13/19 [History] Tamsulosin [Flomax] 0.4 mg PO HS 02/13/19 [History] Atorvastatin [Lipitor] 20 mg PO DAILY tab 02/25/20 [Rx] Escitalopram [Lexapro] 10 mg PO DAILY 08/14/20 [History] Magnesium Gluconate [Magonate] 500 mg PO HS 08/14/20 [History] allopurinoL [Zyloprim] 100 mg PO HS 08/14/20 [History] Pantoprazole Sodium [Protonix] 40 mg PO DAILY 12/09/20 [History] Sildenafil [Revatio] 20 mg PO DAILY 12/09/20 [History] Amiodarone [Cordarone] 200 mg PO DAILY #0 tab 12/13/20 [Rx] Levothyroxine Sodium [Synthroid] 25 mcg PO DAILY@0630 tab 12/13/20 [Rx] Ipratropium/Albuter 20-100Mcg [Combivent Respimat 20-100Mcg Inhaler] 1 puff INHALATION RT-QID 01/01/21 [History] Budesonide/Formoterol Fumarate [Symbicort 80-4.5 Mcg Inhaler] 1 puff INHALATION BID #1 inhaler 01/06/21 [Rx] Furosemide [Lasix] 80 mg PO BID@0900,1600 tab 01/06/21 [Rx] Levofloxacin [Levaquin] 250 mg PO DAILY@1600 #3 tab 01/06/21 [Rx] Follow up Appointment(s)/Referral(s): Juli Barrios MD [STAFF PHYSICIAN] - 2 Weeks Diogenes Wall MD [Primary Care Provider] - 1-2 days
--- NOTE | 2021-01-06 12:55 | XR ---
EXAMINATION TYPE: XR chest 1V portable DATE OF EXAM: 01/06/2021 HISTORY: Shortness of breath. COMPARISON: 01/05/2021 TECHNIQUE: Single view of the chest is submitted. FINDINGS: Demonstrated are scattered senescent parenchymal change. Basilar atelectasis and/or infiltrates. No sizable effusion noted. The heart is stable. Hilar and mediastinal structures are within normal limits. Degenerative changes are seen of the dorsal spine. IMPRESSION: 1. Basilar atelectasis and/or infiltrates. No sizable effusion noted.
[2021-01-06 15:09] LABS: African American GFR (CKD) 54.2 (60.0-200.0); Anion Gap 10.6 mmol/L (4.00-12.00); BUN/Creat Ratio 23.57 Ratio (12.00-20.00); Calcium 8.4 mg/dL (8.7-10.3); Carbon Dioxide 36.4 mmol/L (21.6-31.8); Non-African American GFR(CKD) 46.8 (60.0-200.0); Potassium 4.4 mmol/L (3.5-5.5)
[2021-01-06 15:57] VITALS: BP 160/70; PULSE 75; TEMP 97.7
[2021-01-06] MEDS: LEVOFLOXACIN 250 MG TAB PO SCH (16:05)
== END 2021-01-06 16:00 | DRG 291 ==
LOC: EC 10:32 → 6NMEDSUR 12:42 → OBSVTOIN 01-03 21:48
PROVIDERS: ADMIT Hospitalist; ATTEND Hospitalist
DX: I11.0 Hypertensive heart disease with heart failure (principal); J15.6 Pneumonia due to other Gram-negative bacteria; J96.21 Acute and chronic respiratory failure with hypoxia; N17.0 Acute kidney failure with tubular necrosis; J44.0 Chronic obstructive pulmonary disease with (acute) lower respiratory infection; I48.19 Other persistent atrial fibrillation; I50.23 Acute on chronic systolic (congestive) heart failure; I49.3 Ventricular premature depolarization; K21.9 Gastro-esophageal reflux disease without esophagitis; M1A.9XX0 Chronic gout, unspecified, without tophus (tophi); N30.90 Cystitis, unspecified without hematuria; B96.5 Pseudomonas (aeruginosa) (mallei) (pseudomallei) as the cause of diseases classified elsewhere; E03.9 Hypothyroidism, unspecified; E78.5 Hyperlipidemia, unspecified; F32.9 Major depressive disorder, single episode, unspecified; I08.1 Rheumatic disorders of both mitral and tricuspid valves; I25.10 Atherosclerotic heart disease of native coronary artery without angina pectoris; I25.2 Old myocardial infarction; I25.5 Ischemic cardiomyopathy; I27.20 Pulmonary hypertension, unspecified; N40.0 Benign prostatic hyperplasia without lower urinary tract symptoms; Z20.822 Contact with and (suspected) exposure to COVID-19; Z79.01 Long term (current) use of anticoagulants; Z79.890 Hormone replacement therapy; Z79.899 Other long term (current) drug therapy; Z82.3 Family history of stroke; Z83.3 Family history of diabetes mellitus; Z83.79 Family history of other diseases of the digestive system; R53.81 Other malaise; Z86.718 Personal history of other venous thrombosis and embolism; Z87.891 Personal history of nicotine dependence; Z95.810 Presence of automatic (implantable) cardiac defibrillator; Z99.81 Dependence on supplemental oxygen; Z98.42 Cataract extraction status, left eye; Z98.41 Cataract extraction status, right eye; Z96.1 Presence of intraocular lens; Z87.440 Personal history of urinary (tract) infections; Z87.01 Personal history of pneumonia (recurrent); Z98.890 Other specified postprocedural states; Z91.030 Bee allergy status; Z91.81 History of falling
CPT/HCPCS: 36415; 71045; 71046; 80048; 80053; 81001; 83605; 83880; 84145; 85025; 85610; 85730; 87040; 87077; 87086; 87186; 87635; 93005; 94640; 94760; 96365; 96375; 99291

== ENCOUNTER 2021-03-16 15:14 | Inpatient (IN) | payer MEDICARE ==
--- NOTE | 2021-03-16 15:49 | ED ---
General Adult HPI - General Chief complaint: Shortness of Breath Stated complaint: SOB Time Seen by Provider: 03/16/21 15:36 Source: patient, EMS, RN notes reviewed Mode of arrival: EMS Limitations: physical limitation - History of Present Illness Initial comments: Patient is an 81-year-old male presenting to the emergency department with difficulty in breathing. Patient is upset about being at the hospital. Patient is a poor historian. Patient denies any cough. Patient does admit to being somewhat fatigued and short of breath. Patient states this is chronic for him. - Related Data Home Medications Medication Instructions Recorded Confirmed Cholecalciferol (Vitamin D3) 2,000 mcg PO DAILY 02/13/19 03/16/21 [Vitamin D3] Cyanocobalamin (Vitamin B-12) 1,000 mcg PO DAILY 02/13/19 03/16/21 [Vitamin B-12] Metoprolol Tartrate [Lopressor] 50 mg PO BID 02/13/19 03/16/21 Potassium Chloride [Klor-Con 20] 20 meq PO BID 02/13/19 03/16/21 Rivaroxaban [Xarelto] 20 mg PO HS 02/13/19 03/16/21 Tamsulosin [Flomax] 0.4 mg PO HS 02/13/19 03/16/21 Escitalopram [Lexapro] 10 mg PO DAILY 08/14/20 03/16/21 allopurinoL [Zyloprim] 100 mg PO HS 08/14/20 03/16/21 Pantoprazole Sodium [Protonix] 40 mg PO HS 12/09/20 03/16/21 Sildenafil [Revatio] 20 mg PO DAILY 12/09/20 03/16/21 Ipratropium/Albuter 20-100Mcg 1 puff INHALATION RT-QID 01/01/21 03/16/21 [Combivent Respimat 20-100Mcg Inhaler] Acetaminophen Tab [Tylenol Tab] 500 mg PO Q6H PRN 03/16/21 03/16/21 Amiodarone [Cordarone] 200 mg PO BID 03/16/21 03/16/21 Furosemide [Lasix] 40 mg PO DAILY 03/16/21 03/16/21 Levothyroxine Sodium [Synthroid] 50 mcg PO DAILY 03/16/21 03/16/21 Menthol/Zinc Oxide [Calmoseptine 1 applic TOPICAL DAILY 03/16/21 03/16/21 Ointment] Previous Rx's Medication Instructions Recorded Atorvastatin [Lipitor] 20 mg PO DAILY tab 02/25/20 Allergies Allergy/AdvReac Type Severity Reaction Status Date / Time bee venom protein (honey bee) Allergy Anaphylaxis Verified 03/16/21 17:43 Review of Systems ROS Statement: Those systems with pertinent positive or pertinent negative responses have been documented in the HPI. ROS Other: All systems not noted in ROS Statement are negative. Constitutional: Denies: chills Eyes: Denies: eye pain ENT: Denies: ear pain Respiratory: Reports: dyspnea. Denies: cough Cardiovascular: Denies: chest pain Endocrine: Reports: as per HPI Gastrointestinal: Denies: abdominal pain Genitourinary: Denies: dysuria Musculoskeletal: Denies: back pain Skin: Denies: rash Neurological: Denies: headache Past Medical History Past Medical History: Atrial Fibrillation, Heart Failure, Deep Vein Thrombosis (DVT), GERD/Reflux, GI Bleed, Hyperlipidemia, Myocardial Infarction (DE), Pneumonia, Prostate Disorder, Syncope Additional Past Medical History / Comment(s): Paroxysmal Afib, cardiac valve disease, cardiomyopathy, recurrent VT with AICD, lower GI bleed, UTIs, urinary retention with IDCs at times but no issues since circumcism, BPH, iron anemia, gout R foot, FALLS, gait dysturbance, epistaxis requiring transfusion in past, DVT L arm Last Myocardial Infarction Date:: 2010 History of Any Multi-Drug Resistant Organisms: None Reported Date of last positivie culture/infection: 2014 MDRO Source:: stool Past Surgical History: AICD, Cardiac Ablation, Pacemaker Additional Past Surgical History / Comment(s): 2010 dual AICD, bilateral cataract removals/lens tranplants, adult circumcism Past Anesthesia/Blood Transfusion Reactions: No Reported Reaction Additional Past Anesthesia/Blood Transfusion Reaction / Comment(s): Past blood transfusion without reaction. Type of Cardiac Device: AICD Device Placement Date:: 03/27/2017 Past Psychological History: Depression Smoking Status: Former smoker Past Alcohol Use History: Daily, Heavy Past Drug Use History: None Reported - Past Family History Mother Family Medical History: CVA/TIA, Diabetes Mellitus Additional Family Medical History / Comment(s): Mother had "severe" diabetes and a CVA. Father Family Medical History: CVA/TIA, GI Bleed Additional Family Medical History / Comment(s): Father had a CVA General Exam Limitations: physical limitation General appearance: alert, in no apparent distress Head exam: Present: normocephalic Eye exam: Present: normal appearance Neck exam: Present: normal inspection Respiratory exam: Present: decreased breath sounds, other (Mild tachypnea) Cardiovascular Exam: Present: tachycardia GI/Abdominal exam: Present: soft. Absent: tenderness Extremities exam: Present: normal inspection. Absent: pedal edema, calf tenderness Neurological exam: Present: alert Psychiatric exam: Present: agitated Skin exam: Present: normal color Course Vital Signs 03/16/21 03/16/21 03/16/21 15:16 15:30 16:00 Temperature 99.8 F H Pulse Rate 122 H 120 H 123 H Respiratory 25 H 30 H 28 H Rate Blood Pressure 82/56 85/63 102/60 O2 Sat by Pulse 92 L 93 L 91 L Oximetry 03/16/21 03/16/21 03/16/21 16:30 17:00 17:06 Temperature Pulse Rate 129 H 115 H 101 H Respiratory 27 H 29 H Rate Blood Pressure 90/61 85/55 O2 Sat by Pulse 93 L 92 L Oximetry 03/16/21 03/16/21 17:25 17:58 Temperature Pulse Rate 113 H 114 H Respiratory 26 H 29 H Rate Blood Pressure 103/75 98/61 O2 Sat by Pulse 91 L 90 L Oximetry - Reevaluation(s) Reevaluation #1: 03/16/21 18:13 There is some concern for sepsis diagnosed at 1800. Patient does have history of severe heart failure with ejection fraction of 30%. Patient does have some suspicion for heart failure at this time and therefore fluid boluses have been limited. 03/16/21 18:14 Discussion also had with family regarding patient's CODE STATUS. They state patient is a full code at this time however would not want any sort of prolonged critical care EKG Findings - EKG Comments: EKG Findings:: Wide-complex tachycardia with a rate of 121, irregular rhythm. QRS 158. QT 424. QTC 602. Right axis. Nonspecific intraventricular block. Nonspecific ST-T. Occasional pacer spikes are noted. Medical Decision Making - Medical Decision Making Patient was reevaluated several times. Case was discussed with Dr. Garcia, who will admit for Dr. Cisse. Case also discussed with Dr. Villarreal who did review EKG and then did come evaluate patient. His original opinion was somewhat concerning for A. fib however he did see some neuro complexes on the monitor and is also somewhat suspicious of some V. tach. He will start amiodarone drip. Case was also discussed with Dr. Gomez with pulmonary, who will consult for critical care. - Lab Data Result diagrams: 03/16/21 15:50 03/16/21 15:50 Lab Results 03/16/21 03/16/21 03/16/21 Range/Units 15:50 15:50 15:50 WBC 9.7 (3.8-10.6) k/uL RBC 3.64 L (4.30-5.90) m/uL Hgb 11.3 L (13.0-17.5) gm/dL Hct 36.4 L (39.0-53.0) % MCV 99.9 (80.0-100.0) fL MCH 30.9 (25.0-35.0) pg MCHC 31.0 (31.0-37.0) g/dL RDW 16.3 H (11.5-15.5) % Plt Count 281 (150-450) k/uL MPV 8.5 Neutrophils % (Manual) 74 % Band Neuts % (Manual) 2 % Lymphocytes % (Manual) 10 % Monocytes % (Manual) 13 % Metamyelocytes % 1 % Neutrophils # (Manual) 7.30 (1.3-7.7) k/uL Lymphocytes # (Manual) 0.97 L (1.0-4.8) k/uL Monocytes # (Manual) 1.26 H (0-1.0) k/uL Metamyelocytes # (Man) 0.10 H (0) k/uL Nucleated RBCs 0 (0-0) /100 WBC Manual Slide Review Performed Hypochromasia Moderate Anisocytosis Slight Macrocytosis Slight PT 13.2 H (9.0-12.0) sec INR 1.3 H (<1.2) APTT 26.1 (22.0-30.0) sec Sodium (137-145) mmol/L Potassium (3.5-5.1) mmol/L Chloride (98-107) mmol/L Carbon Dioxide (22-30) mmol/L Anion Gap mmol/L BUN (9-20) mg/dL Creatinine (0.66-1.25) mg/dL Est GFR (CKD-EPI)AfAm (>60 ml/min/1.73 sqM) Est GFR (CKD-EPI)NonAf (>60 ml/min/1.73 sqM) Glucose (74-99) mg/dL Plasma Lactic Acid Lemuel (0.7-2.0) mmol/L Calcium (8.4-10.2) mg/dL Total Bilirubin (0.2-1.3) mg/dL AST (17-59) U/L ALT (4-49) U/L Alkaline Phosphatase (38-126) U/L Troponin I (0.000-0.034) ng/mL NT-Pro-B Natriuret Pep pg/mL Total Protein (6.3-8.2) g/dL Albumin (3.5-5.0) g/dL Urine Color Yellow Urine Appearance Clear (Clear) Urine pH 5.5 (5.0-8.0) Ur Specific [place] 1.029 (1.001-1.035) Urine Protein 1+ H (Negative) Urine Glucose (UA) Negative (Negative) Urine Ketones Negative (Negative) Urine Blood Negative (Negative) Urine Nitrite Negative (Negative) Urine Bilirubin Negative (Negative) Urine Urobilinogen 3.0 (<2.0) mg/dL Ur Leukocyte Esterase Negative (Negative) Urine RBC 1 (0-5) /hpf Urine WBC <1 (0-5) /hpf Ur Squamous Epith Cells <1 (0-4) /hpf Urine Mucus Rare H (None) /hpf Coronavirus (PCR) (Not Detectd) 03/16/21 03/16/21 03/16/21 Range/Units 15:50 15:50 15:50 WBC (3.8-10.6) k/uL RBC (4.30-5.90) m/uL Hgb (13.0-17.5) gm/dL Hct (39.0-53.0) % MCV (80.0-100.0) fL MCH (25.0-35.0) pg MCHC (31.0-37.0) g/dL RDW (11.5-15.5) % Plt Count (150-450) k/uL MPV Neutrophils % (Manual) % Band Neuts % (Manual) % Lymphocytes % (Manual) % Monocytes % (Manual) % Metamyelocytes % % Neutrophils # (Manual) (1.3-7.7) k/uL Lymphocytes # (Manual) (1.0-4.8) k/uL Monocytes # (Manual) (0-1.0) k/uL Metamyelocytes # (Man) (0) k/uL Nucleated RBCs (0-0) /100 WBC Manual Slide Review Hypochromasia Anisocytosis Macrocytosis PT (9.0-12.0) sec INR (<1.2) APTT (22.0-30.0) sec Sodium 142 (137-145) mmol/L Potassium 4.6 (3.5-5.1) mmol/L Chloride 100 (98-107) mmol/L Carbon Dioxide 30 (22-30) mmol/L Anion Gap 12 mmol/L BUN 28 H (9-20) mg/dL Creatinine 1.13 (0.66-1.25) mg/dL Est GFR (CKD-EPI)AfAm 70 (>60 ml/min/1.73 sqM) Est GFR (CKD-EPI)NonAf 61 (>60 ml/min/1.73 sqM) Glucose 141 H (74-99) mg/dL Plasma Lactic Acid Lemuel 3.0 H* (0.7-2.0) mmol/L Calcium 9.5 (8.4-10.2) mg/dL Total Bilirubin 1.1 (0.2-1.3) mg/dL AST 101 H (17-59) U/L ALT 89 H (4-49) U/L Alkaline Phosphatase 112 (38-126) U/L Troponin I (0.000-0.034) ng/mL NT-Pro-B Natriuret Pep 31782 pg/mL Total Protein 7.4 (6.3-8.2) g/dL Albumin 4.2 (3.5-5.0) g/dL Urine Color Urine Appearance (Clear) Urine pH (5.0-8.0) Ur Specific [place] (1.001-1.035) Urine Protein (Negative) Urine Glucose (UA) (Negative) Urine Ketones (Negative) Urine Blood (Negative) Urine Nitrite (Negative) Urine Bilirubin (Negative) Urine Urobilinogen (<2.0) mg/dL Ur Leukocyte Esterase (Negative) Urine RBC (0-5) /hpf Urine WBC (0-5) /hpf Ur Squamous Epith Cells (0-4) /hpf Urine Mucus (None) /hpf Coronavirus (PCR) (Not Detectd) 03/16/21 03/16/21 Range/Units 15:50 15:57 WBC (3.8-10.6) k/uL RBC (4.30-5.90) m/uL Hgb (13.0-17.5) gm/dL Hct (39.0-53.0) % MCV (80.0-100.0) fL MCH (25.0-35.0) pg MCHC (31.0-37.0) g/dL RDW (11.5-15.5) % Plt Count (150-450) k/uL MPV Neutrophils % (Manual) % Band Neuts % (Manual) % Lymphocytes % (Manual) % Monocytes % (Manual) % Metamyelocytes % % Neutrophils # (Manual) (1.3-7.7) k/uL Lymphocytes # (Manual) (1.0-4.8) k/uL Monocytes # (Manual) (0-1.0) k/uL Metamyelocytes # (Man) (0) k/uL Nucleated RBCs (0-0) /100 WBC Manual Slide Review Hypochromasia Anisocytosis Macrocytosis PT (9.0-12.0) sec INR (<1.2) APTT (22.0-30.0) sec Sodium (137-145) mmol/L Potassium (3.5-5.1) mmol/L Chloride (98-107) mmol/L Carbon Dioxide (22-30) mmol/L Anion Gap mmol/L BUN (9-20) mg/dL Creatinine (0.66-1.25) mg/dL Est GFR (CKD-EPI)AfAm (>60 ml/min/1.73 sqM) Est GFR (CKD-EPI)NonAf (>60 ml/min/1.73 sqM) Glucose (74-99) mg/dL Plasma Lactic Acid Lemuel (0.7-2.0) mmol/L Calcium (8.4-10.2) mg/dL Total Bilirubin (0.2-1.3) mg/dL AST (17-59) U/L ALT (4-49) U/L Alkaline Phosphatase (38-126) U/L Troponin I 0.127 H* (0.000-0.034) ng/mL NT-Pro-B Natriuret Pep pg/mL Total Protein (6.3-8.2) g/dL Albumin (3.5-5.0) g/dL Urine Color Urine Appearance (Clear) Urine pH (5.0-8.0) Ur Specific [place] (1.001-1.035) Urine Protein (Negative) Urine Glucose (UA) (Negative) Urine Ketones (Negative) Urine Blood (Negative) Urine Nitrite (Negative) Urine Bilirubin (Negative) Urine Urobilinogen (<2.0) mg/dL Ur Leukocyte Esterase (Negative) Urine RBC (0-5) /hpf Urine WBC (0-5) /hpf Ur Squamous Epith Cells (0-4) /hpf Urine Mucus (None) /hpf Coronavirus (PCR) Not Detected (Not Detectd) Critical Care Time Critical Care Time: Yes Total Critical Care Time: 32 Disposition Clinical Impression: Heart failure, Pneumonia Disposition: ADMITTED IP TO THIS HOSP Condition: Serious Is patient prescribed a controlled substance at d/c from ED?: No Referrals: Diogenes Wall MD [Primary Care Provider] - 1-2 days Decision Time: 18:14
[2021-03-16] MEDS: SODIUM CHLORIDE 0.9% 1,000 ML IV SCH ×2 (15:53→20:00)
[2021-03-16 16:10] LABS: Albumin 4.2 g/dL (3.5-5.0); Appearance,Urine Clear (Clear); Bilirubin,Urine Negative (Negative); Blood,Urine Negative (Negative); Calcium 9.5 mg/dL (8.4-10.2); Color,Urine Yellow; Glucose,Urine (UA) Negative (Negative); Ketones,Urine Negative (Negative); Leukocyte Esterase,Urine Negative (Negative); Mucus,Urine Rare /hpf; Nitrite,Urine Negative (Negative); PH, Urine 5.5 (5.0-8.0); Potassium 4.6 mmol/L (3.5-5.1); Protein,Urine 1+ (Negative); RBC,Urine 1 /hpf (0-5); Specific Gravity,Urine 1.029 (1.001-1.035); Squamous Epithelial Cell,Urine <1 /hpf (0-4); Total Bilirubin 1.1 mg/dL (0.2-1.3); Total Protein 7.4 g/dL (6.3-8.2); WBC,Urine <1 /hpf (0-5)
[2021-03-16 16:12] LABS: INR 1.3 (<1.2); Partial Thromboplastin Time 26.1 sec (22.0-30.0); Prothrombin Time 13.2 sec (9.0-12.0)
[2021-03-16 16:15] LABS: Anisocytosis Slight; HCT 36.4 % (39.0-53.0); HGB 11.3 gm/dL (13.0-17.5); Hypochromasia Moderate; MCH 30.9 pg (25.0-35.0); MCV 99.9 fL (80.0-100.0); Macrocytosis Slight; Mean Platelet Volume 8.5; Platelet Count 281 k/uL (150-450); RBC 3.64 m/uL (4.30-5.90); RDW 16.3 % (11.5-15.5); WBC 9.7 k/uL (3.8-10.6)
[2021-03-16 16:30] LABS: Band Neutrophils % 2 %; Lymphocytes # (M) 0.97 k/uL (1.0-4.8); Metamyelocytes % 1 %; Monocytes # (M) 1.26 k/uL (0-1.0); Neutrophils % (M) 74 %; Nucleated Red Blood Cells 0 /100 WBC (0-0); Total Cells Counted 100
--- NOTE | 2021-03-16 16:32 | XR ---
EXAMINATION TYPE: XR chest 2V DATE OF EXAM: 03/16/2021 COMPARISON: 01/06/2021 HISTORY: Shortness of breath TECHNIQUE: Frontal and lateral views of the chest are obtained. FINDINGS: Scattered senescent parenchymal changes noted. Hyperinflation compatible with COPD. Patchy perihilar and basilar densities may reflect developing infiltrate. Pulmonary venous congestion noted as well. Heart size is stable. Mediastinal structures are stable and grossly unremarkable. No evidence for hilar prominence. Degenerative changes dorsal spine. IMPRESSION: 1. Patchy perihilar and basilar densities may reflect developing infiltrate. Pulmonary venous congest ion noted as well.
[2021-03-16] MEDS ORDERED: SODIUM CHLORIDE 0.9% 500 ML 500 ML IV STA (17:17)
[2021-03-16] MEDS ORDERED: LORazepam 2 MG/ML INJ IV STA (17:55)
[2021-03-16] MEDS ORDERED: ACETAMINOPHEN TAB 325 MG TAB PO PRN (18:15)
[2021-03-16] MEDS ORDERED: NALOXONE 0.4 MG/ML 1 ML VIAL IV PRN (18:15)
[2021-03-16] MEDS ORDERED: PIPERACILLIN-TAZOBACTAM 3.375 GM in SODIUM CHLORIDE 0.9% 100 ML IVPB STA (18:15)
[2021-03-16] MEDS ORDERED: PNEUMONIA PROTOCOL UTILIZED 1 EACH MISC PO PRN (18:15)
[2021-03-16] MEDS ORDERED: DEXTROSE 5% IN WATER 100 ML with AMIODARONE 150 MG IV ONE (18:30)
[2021-03-16] MEDS: AMIODARONE 360 MG in DEXTROSE 5% IN WATER 200 ML IV ONE ×2 (18:42)
[2021-03-16 19:13] LABS: Glucose,Whole Blood 130 mg/dL (75-99)
[2021-03-16 19:45] LABS: Magnesium 1.6 mg/dL (1.6-2.3)
--- NOTE | 2021-03-16 19:49 | CONS ---
CONSULTATION Mr. Hussein is an 81-year-old male who presented to the emergency room with symptoms of progressive dyspnea and change in mental status. The history is obtained from the patient and from the family. The patient has a known history of cardiomyopathy of unclear etiology. He was in the hospital in December of this year. He has a history of defibrillator but has not followed by a sap technical developer on a regular basis. He had an echocardiogram obtained in July of 2020 as well as January and he has an ejection fraction of 30-35% with segmental wall motion abnormality. It is unclear if he had a cardiac catheterization on not, patient is unclear and the family is not either. He has a known history of moderate to severe tricuspid regurgitation with moderate mitral regurgitation and severe pulmonary hypertension. He has a prior history of alcohol intake. Apparently has not been drinking for the last couple months, but went back to drinking recently as well as smoking. He presented with progressive dyspnea, change in mental status and came into the emergency room. In the emergency room his EKG revealed a wide-complex rhythm. The patient has a known history of atrial fibrillation, has been anticoagulated. He has no peripheral edema. He has some cough, low-grade fever. No wheezing. He has no clear PND or orthopnea. MEDICATION: At home included tamsulosin, Revatio 20 mg daily, Xarelto 20 mg daily, potassium, Protonix, metoprolol tartrate 50 mg twice a day, furosemide 40 mg daily, Lipitor 20 mg daily, and amiodarone 200 mg twice a day. REVIEW OF SYSTEMS: Although limited is remarkable for the dyspnea, cough, history of chronic tobacco use. GI system: No nausea, no vomiting. No recent GI bleeding. system: No dysuria or hematuria. Nervous system: Questionable history of stroke according to the family. PHYSICAL EXAMINATION: He is an 81-year-old male, answering some questions, somewhat restless. Has a temperature of 99.8, heart rate running between 100 and 110s with a blood pressure in the 90s to 100. HEAD: Normocephalic. EYES: Sclerae anicteric. NECK: No bruit appreciated. LUNGS: With decreased air exchange and crackles bilaterally. HEART: Irregular, regular, S1, S2. No S3 with a systolic murmur at the base. No diastolic murmur, no rub. ABDOMEN: Soft, nontender. Positive bowel sounds. No organomegaly. EXTREMITIES: No edema. Chest x-ray revealed possible infiltrate with evidence of congestion. LAB DATA: Lab data revealed a plasma lactic acid is 3. BUN and creatinine of 28 and 1.13. Hemoglobin of 11.3, white blood cell of 9.7. NT proBNP of 10,800. Troponin 0.127. Reviewing his prior NT proBNP in December, his NT proBNP was 17,100. His troponin has been mildly elevated in July in the same range. His EKG revealed a wide-complex rhythm, rate of 120 with some irregularities, could represent ventricular tachycardia. Reviewing prior EKG that rhythm is new, he had atrial fibrillation before. On the monitor he appears to be having some narrow complex rhythm as well. IMPRESSION: 1. Progressive dyspnea with change in mental status, multifactorial, probably combination of congestive heart failure with systolic dysfunction as well as an element of possible pneumonia. 2. Wide-complex rhythm, could represent ventricular tachycardia. His rate is running in the 100s to 110s. The patient has a history of ventricular tachycardia and ICD implantation as well as prior history of discharges. 3. History of cardiomyopathy of unclear etiology. His echocardiogram shows segmental wall motion abnormality in the past. 4. Chronic tobacco use. 5. Chronic alcohol intake. 6. Prior history of noncompliance. RECOMMENDATION: From the cardiac standpoint, I will put him on IV amiodarone. I will continue the beta antoinette, continue the anticoagulation. Unfortunately prognosis is quite guarded. I discussed this finding with the family. They are in full understanding and agreement. Thank you for this consult. We will follow with you. MMTROY / IJN: [id number] /
[2021-03-16] MEDS ORDERED: IPRATROPIUM-ALBUTEROL 3 ML NEB INHALATION PRN (20:24)
[2021-03-16] MEDS: FUROSEMIDE 10 MG/ML 4 ML VIAL IV SCH (20:31)
[2021-03-16 20:51] LABS: Appearance,Urine Clear (Clear); Bilirubin,Urine Negative (Negative); Blood,Urine Negative (Negative); Color,Urine Yellow; Glucose,Urine (UA) Negative (Negative); Hyaline Casts,Urine 1 /lpf (0-2); Ketones,Urine Negative (Negative); Leukocyte Esterase,Urine Negative (Negative); Mucus,Urine Rare /hpf; Nitrite,Urine Negative (Negative); PH, Urine 5.5 (5.0-8.0); Protein,Urine 2+ (Negative); RBC,Urine 2 /hpf (0-5); Specific Gravity,Urine 1.026 (1.001-1.035); WBC,Urine 3 /hpf (0-5)
[2021-03-16] MEDS: METOPROLOL TARTRATE 25 MG TAB PO SCH (21:58)
[2021-03-16] MEDS: RIVAROXABAN 20 MG TAB PO SCH (21:59)
[2021-03-16] MEDS: MAGNESIUM SULFATE-D5W PMX 1 GM in DEXTROSE/WATER 1 100ML.BAG IVPB SCH (22:40)
[2021-03-16] MEDS: IPRATROPIUM-ALBUTEROL 3 ML NEB INHALATION SCH (23:11)
[2021-03-17] MEDS: MAGNESIUM SULFATE-D5W PMX 1 GM in DEXTROSE/WATER 1 100ML.BAG IVPB SCH (00:23)
[2021-03-17] MEDS: PIPERACILLIN-TAZOBACTAM 3.375 GM in SODIUM CHLORIDE 0.9% 100 ML IVPB SCH ×4 (00:23→23:58)
[2021-03-17] MEDS ORDERED: AMIODARONE 450 MG in DEXTROSE 5% IN WATER 250 ML IV SCH ×4 (00:40→14:00)
[2021-03-17] MEDS: AMIODARONE 360 MG in DEXTROSE 5% IN WATER 200 ML IV ONE ×2 (00:41)
[2021-03-17] MEDS ORDERED: FUROSEMIDE 10 MG/ML 4 ML VIAL IV PRN (01:00)
[2021-03-17] MEDS: IPRATROPIUM-ALBUTEROL 3 ML NEB INHALATION SCH ×5 (03:42→20:36)
[2021-03-17 04:15] LABS: Anisocytosis Slight; Basophils % (A) 0 %; Eosinophils % (A) 0 %; HCT 32.9 % (39.0-53.0); HGB 10.2 gm/dL (13.0-17.5); Hypochromasia Moderate; Lymphocytes # (A) 1.2 k/uL (1.0-4.8); Lymphocytes % (A) 11 %; MCHC 30.9 g/dL (31.0-37.0); MCV 100.3 fL (80.0-100.0); Macrocytosis Slight; Mean Platelet Volume 8.8; Monocytes # (A) 0.9 k/uL (0-1.0); Monocytes % (A) 8 %; Neutrophils # (A) 9.1 k/uL (1.3-7.7); Neutrophils % (A) 80 %; Platelet Count 216 k/uL (150-450); RBC 3.28 m/uL (4.30-5.90); WBC 11.4 k/uL (3.8-10.6)
[2021-03-17 04:36] LABS: Albumin 3.2 g/dL (3.5-5.0); Calcium 8.5 mg/dL (8.4-10.2); Potassium 4.7 mmol/L (3.5-5.1); Total Bilirubin 1.6 mg/dL (0.2-1.3); Total Protein 6.1 g/dL (6.3-8.2)
[2021-03-17] MEDS: SODIUM CHLORIDE 0.9% 1,000 ML IV SCH ×2 (05:24→13:38)
[2021-03-17] MEDS ORDERED: AMIODARONE 360 MG in DEXTROSE 5% IN WATER 200 ML IV ONE ×4 (05:30→14:00)
--- NOTE | 2021-03-17 07:24 | XR ---
EXAMINATION TYPE: XR chest 1V DATE OF EXAM: 03/17/2021 COMPARISON: 03/16/2021 HISTORY: ETHAN is the only history provided. TECHNIQUE: Single frontal view of the chest is obtained. FINDINGS: Left basilar pleural-parenchymal disease and patchy airspace disease bilaterally appears s imilar to the prior exam. Enlargement of the cardiac silhouette with AICD leads is unchanged. IMPRESSION: Left basilar pleural-parenchymal disease and patchy airspace disease bilaterally appears similar to t he prior exam.
--- NOTE | 2021-03-17 08:49 | P.NPCON ---
History of Present Illness - Reason for Consult acute renal failure - History of Present Illness Reason for consult patient: Acute kidney injury History of present illness: Patient is a 81-year-old male seen in renal consultation for acute kidney injury. Patient creatinine on admission was 1.13 and is up to 1.79 today. Patient presented to the hospital with shortness of breath. Patient is not a reliable historian. He's currently on BiPAP. Patient's blood pressure on admission was in the systolic 80s and is 106/71 as of this morning. He is not on any vasopressors at this time. He is currently maintained on IV Lasix 40 mg twice daily. Urine output has been about 25 mL an hour. The last few hours. Patient has history of systolic CHF with ejection fraction of 30-35% with moderate mitral and tricuspid regurgitation and severe pulmonary hypertension. I don't see any nonsteroidals and his home medication list. He was also noted to have ventricular tachycardia and is currently maintained on amiodarone drip. Vital signs are stable. General: On BiPAP. HEENT: Head exam is unremarkable. LUNGS: Breath sounds decreased. HEART: Rate and Rhythm are regular. ABDOMEN: Soft, no distention. EXTREMITITES: No edema. Past Medical History Past Medical History: Atrial Fibrillation, Heart Failure, Deep Vein Thrombosis (DVT), GERD/Reflux, GI Bleed, Hyperlipidemia, Myocardial Infarction (HI), Pneumonia, Prostate Disorder, Syncope Additional Past Medical History / Comment(s): Paroxysmal Afib, cardiac valve disease, cardiomyopathy, recurrent VT with AICD, lower GI bleed, UTIs, urinary retention with IDCs at times but no issues since circumcism, BPH, iron anemia, gout R foot, FALLS, gait dysturbance, epistaxis requiring transfusion in past, DVT L arm Last Myocardial Infarction Date:: 2010 History of Any Multi-Drug Resistant Organisms: None Reported Date of last positivie culture/infection: 2014 MDRO Source:: stool Past Surgical History: AICD, Cardiac Ablation, Pacemaker Additional Past Surgical History / Comment(s): 2010 dual AICD, bilateral cataract removals/lens tranplants, adult circumcism Past Anesthesia/Blood Transfusion Reactions: No Reported Reaction Additional Past Anesthesia/Blood Transfusion Reaction / Comment(s): Past blood transfusion without reaction. Type of Cardiac Device: AICD Device Placement Date:: 03/27/2017 Past Psychological History: Depression Smoking Status: Former smoker Past Alcohol Use History: Daily, Heavy Past Drug Use History: None Reported - Past Family History Mother Family Medical History: CVA/TIA, Diabetes Mellitus Additional Family Medical History / Comment(s): Mother had "severe" diabetes and a CVA. Father Family Medical History: CVA/TIA, GI Bleed Additional Family Medical History / Comment(s): Father had a CVA Medications and Allergies Home Medications Medication Instructions Recorded Confirmed Type Cholecalciferol (Vitamin D3) 2,000 mcg PO DAILY 02/13/19 03/16/21 History [Vitamin D3] Cyanocobalamin (Vitamin B-12) 1,000 mcg PO DAILY 02/13/19 03/16/21 History [Vitamin B-12] Metoprolol Tartrate [Lopressor] 50 mg PO BID 02/13/19 03/16/21 History Potassium Chloride [Klor-Con 20] 20 meq PO BID 02/13/19 03/16/21 History Rivaroxaban [Xarelto] 20 mg PO HS 02/13/19 03/16/21 History Tamsulosin [Flomax] 0.4 mg PO HS 02/13/19 03/16/21 History Atorvastatin [Lipitor] 20 mg PO DAILY tab 02/25/20 03/16/21 Rx Escitalopram [Lexapro] 10 mg PO DAILY 08/14/20 03/16/21 History allopurinoL [Zyloprim] 100 mg PO HS 08/14/20 03/16/21 History Pantoprazole Sodium [Protonix] 40 mg PO HS 12/09/20 03/16/21 History Sildenafil [Revatio] 20 mg PO DAILY 12/09/20 03/16/21 History Ipratropium/Albuter 20-100Mcg 1 puff INHALATION RT-QID 01/01/21 03/16/21 History [Combivent Respimat 20-100Mcg Inhaler] Acetaminophen Tab [Tylenol Tab] 500 mg PO Q6H PRN 03/16/21 03/16/21 History Amiodarone [Cordarone] 200 mg PO BID 03/16/21 03/16/21 History Furosemide [Lasix] 40 mg PO DAILY 03/16/21 03/16/21 History Levothyroxine Sodium [Synthroid] 50 mcg PO DAILY 03/16/21 03/16/21 History Menthol/Zinc Oxide [Calmoseptine 1 applic TOPICAL DAILY 03/16/21 03/16/21 History Ointment] Allergies Allergy/AdvReac Type Severity Reaction Status Date / Time bee venom protein (honey bee) Allergy Anaphylaxis Verified 03/16/21 17:43 Physical Exam Vitals: Vital Signs Temp Pulse Pulse Resp BP BP Pulse Ox 03/17/21 07:50 72 03/17/21 07:40 70 03/17/21 07:00 71 21 106/71 97 03/17/21 06:30 71 18 99/64 97 03/17/21 06:00 69 20 98/67 98 03/17/21 05:30 74 22 104/59 97 03/17/21 05:00 86 22 105/70 97 03/17/21 04:30 67 22 103/67 97 03/17/21 04:00 99.3 F 75 22 90/54 96 03/17/21 03:52 93 03/17/21 03:42 88 03/17/21 03:30 73 18 101/68 96 03/17/21 03:00 79 19 94/60 96 03/17/21 02:00 89 21 113/69 98 03/17/21 01:45 97 24 100/68 98 03/17/21 01:30 76 23 94/69 98 03/17/21 01:00 88 20 97/72 96 03/17/21 00:30 86 18 95/67 96 03/17/21 00:00 99.9 F H 96 24 99/63 97 03/16/21 23:30 96 26 H 87/59 96 03/16/21 23:26 96 03/16/21 23:12 101 H 03/16/21 23:00 98 30 H 101/74 97 03/16/21 22:30 98 30 H 88/58 97 03/16/21 22:00 105 H 28 H 83/59 98 03/16/21 21:30 112 H 29 H 84/55 98 03/16/21 21:00 115 H 30 H 85/54 97 03/16/21 20:49 116 H 30 H 90/56 97 03/16/21 20:42 114 H 03/16/21 20:28 114 H 03/16/21 20:00 97.9 F 124 H 38 H 80/50 91 L 03/16/21 18:48 100.6 F H 124 H 30 H 101/79 91 L 03/16/21 18:30 116 H 30 H 95/31 90 L 03/16/21 18:19 113 H 03/16/21 18:00 109 H 98/61 90 L 03/16/21 17:58 114 H 29 H 98/61 90 L 03/16/21 17:30 125 H 103/75 91 L 03/16/21 17:25 113 H 26 H 103/75 91 L 03/16/21 17:06 101 H 03/16/21 17:00 115 H 29 H 85/55 92 L 03/16/21 16:30 129 H 27 H 90/61 93 L 03/16/21 16:00 123 H 28 H 102/60 91 L 03/16/21 15:30 120 H 30 H 85/63 93 L 03/16/21 15:16 99.8 F H 122 H 25 H 82/56 92 L Intake and Output 03/16/21 03/17/21 03/17/21 22:59 06:59 14:59 Intake Total 359.9 1650.842 293.3 Output Total 25 94 70 Balance 334.9 1556.842 223.3 Intake: IV 359.9 1451.4 293.3 Amiodarone 360 mg In 99.9 266.4 33.3 Dextrose 5% in Water 200 ml @ 1 MG/MIN 33.333 mls/ hr IV .Q6H ONE Rx#: [id number] Magnesium Sulfate 200 Piperacillin-Tazobactam 3 75 .375 gm In Sodium Chloride 0.9% 100 ml @ 25 mls/hr IVPB Q8HR [facility] Rx# :[id number] Sodium Chloride 0.9% 1, 260 910 260 000 ml @ 130 mls/hr IV . Q7H42M [facility] Rx#:[id number] Intake, IV Titration 199.442 Amount Amiodarone 360 mg In 199.442 Dextrose 5% in Water 200 ml @ 1 MG/MIN 33.333 mls/ hr IV .Q6H ONE Rx#: [id number] Output: Urine 25 94 70 Other: Voiding Method Indwelling Catheter Indwelling Catheter Weight 87.09 kg 88.9 kg Results - Lab Results Most recent lab results Calcium 8.5 mg/dL (8.4-10.2) 03/17/21 03:42 Magnesium 1.5 mg/dL (1.6-2.3) L 03/16/21 20:25 03/17/21 03:42 03/17/21 03:42 Assessment and Plan Plan: Assessment: 1. Acute kidney injury secondary to ATN secondary to hypotension and cardiorenal syndrome. Creatinine was 1.13 on admission and is 1.79 today. Renal ultrasound from November revealed no evidence of hydronephrosis. 2. Acute on chronic systolic CHF with ejection fraction of 30-35% with moderate mitral and tricuspid regurgitation. 3. Pulmonary hypertension. 4. Acute hypoxia respiratory failure. 5. Volume overload. 6. Ventricular tachycardia maintain on amiodarone drip. Cardiology following. 7. Hypomagnesemia from poor intake and diuresis. Replaced. Plan: Maintain IV Lasix. Continue to monitor renal function and urine output. Avoid nephrotoxins. Continue to assess daily for potential need for renal placement therapy. Thank you for the consultation. I will continue to follow the patient with you during his hospital stay.
[2021-03-17] MEDS ORDERED: ATORVASTATIN 20 MG TAB PO SCH (09:00)
[2021-03-17 09:03] LABS: ABG Base Excess 3.6 mmol/L; ABG HCO3 29 mmol/L (21-25); ABG Oxygen Saturation 98.3 % (94-97); ABG PCO2 46 mmHg (35-45); ABG PO2 106 mmHg (83-108); ABG TCO2 30 mmol/L (19-24); Allen Test Performed? Yes
--- NOTE | 2021-03-17 09:18 | PN ---
PROGRESS NOTE Mr. Hussein is an 81-year-old male with known history of severe cardiomyopathy status post ICD implant, history alcohol and tobacco use, who presented to the emergency room with symptoms of progressive weakness and change in mental status, elevated lactic acid and wide-complex tachycardia consistent with ventricular tachycardia, rhythm in the 110s. He is back in narrow complex. He is in chronic persistent atrial fibrillation. His rate is controlled. His ejection fraction in the past was 30-35% and he has a history of severe pulmonary hypertension. The patient has a history of alcoholism and tobacco use and apparently has gone back to drinking recently. It is unclear if he was taking any medication. He has continued to be on IV amiodarone at this time. He is awake, answers some questions and falls back to sleep; follows some command. He has no recurrent episode of ventricular tachycardia. He continues to be on the IV amiodarone as noted, IV Lasix 40 mg twice a day, metoprolol tartrate 25 mg twice a day, Aldactone 25 mg daily, and Xarelto 20 mg daily. PHYSICAL EXAMINATION: He is somnolent, answering questions and falls back to sleep. His blood pressure is running in the 100s with a heart rate in 70s. Lungs with crackles bilaterally. Heart irregular, irregular, S1, S2. No S3 with systolic murmur, no diastolic murmur. Abdomen soft, nontender. Extremities: No edema. LAB DATA: Lab data revealed BUN and creatinine 34 and 1.79 which is worse than yesterday. His liver functions showed an AST of 592, ALT of 290. His potassium is 4.7, hemoglobin of 10.2. His MCV is 100.3, white blood cell of 11.4. His EKG is consistent with the atrial fibrillation with nonspecific ST-T wave changes. IMPRESSION: 1. Progressive change in mental status, multifactorial with an element of congestive heart failure as well as possible pneumonia. 2. Ventricular tachycardia back in sinus mechanism. 3. History of cardiomyopathy status post ICD implantation. 4. Worsening renal function, probable cardiorenal syndrome. 5. History of severe pulmonary hypertension. 6. History of noncompliance. RECOMMENDATION: From the cardiac standpoint, it is unclear what medication the patient was taking at home. I will repeat his echocardiogram. I will continue the IV amiodarone for the next 24 hours. I will follow his renal function, continue IV diuretics for 24 hours and then switch. We will follow his renal function closely as well as his liver enzymes. Depending on his progress, further recommendation will be made. The prognosis remains guarded. [id number] / IJN: [id number] /
--- NOTE | 2021-03-17 09:56 | P.CNPUL ---
History of Present Illness Consult date: 03/17/21 Requesting physician: Jori Garcia Reason for consult: dyspnea, hypoxemia, pneumonia Chief complaint: Shortness of breath, respiratory failure. History of present illness: Pulmonary consult dated 03/17/2021. 81-year-old male, who is admitted to the hospital, on March 16. He came into the emergency room with complaints of shortness of breath. He was brought in by EMS. He apparently is been having difficulty with breathing for some time. The patient is a very poor historian. The patient apparently did not admit to any chest pain or chest pressure. There is no cough, fever, chills, nausea, vomiting, or diarrhea. Currently, the patient is on BiPAP, with settings of 14/5 and 40%. He is receiving amiodarone at 1 mg/m, saline at 130 mL an hour, and a blood gas will be done. The patient has a history of chronic hypoxemic respiratory failure, chronic alcohol abuse, atrial fibrillation, DVT, gastroesophageal reflux disease, gastrointestinal bleed, myocardial infarction, hyperlipidemia, status post AICD placement, and BPH. Laboratory data includes a white count 11.4, hemoglobin 10.2, hematocrit 32.9, and platelet count 216,000. Blood gases show pO2 106, pCO2 46, with a normal pH. Sodium 138, potassium 4.7, chlorides 102, CO2 29, anion gap 7, BUN 34, creatinine 1.79. AST was 592, and ALT was 290. Urine was negative. The patient's troponin level was 0.127 and the N-terminal proBNP was nearly 11,000. The TSH was normal. Chest x-ray in my opinion, shows cardiomegaly, changes of vascular decompensation. Small effusions and fluid in the minor fissure as well. Review of Systems REVIEW OF SYSTEMS: CONSTITUTIONAL: Fatigue. NEUROLOGIC: [ Negative.] HEENT: [ Negative.] CARDIAC: [Negative.] PULMONARY: Shortness of breath. GI: [Negative.] : [Negative.] RHEUMATOLOGIC: [ Negative.] IMMUNOLOGIC: [ Negative.] ENDOCRINE: [Negative. ] DERMATOLOGIC: [Negative.] Past Medical History Past Medical History: Atrial Fibrillation, Heart Failure, Deep Vein Thrombosis (DVT), GERD/Reflux, GI Bleed, Hyperlipidemia, Myocardial Infarction (VT), Pneumonia, Prostate Disorder, Syncope Additional Past Medical History / Comment(s): Paroxysmal Afib, cardiac valve disease, cardiomyopathy, recurrent VT with AICD, lower GI bleed, UTIs, urinary retention with IDCs at times but no issues since circumcism, BPH, iron anemia, gout R foot, FALLS, gait dysturbance, epistaxis requiring transfusion in past, DVT L arm Last Myocardial Infarction Date:: 2010 History of Any Multi-Drug Resistant Organisms: None Reported Date of last positivie culture/infection: 2014 MDRO Source:: stool Past Surgical History: AICD, Cardiac Ablation, Pacemaker Additional Past Surgical History / Comment(s): 2010 dual AICD, bilateral cataract removals/lens tranplants, adult circumcism Past Anesthesia/Blood Transfusion Reactions: No Reported Reaction Additional Past Anesthesia/Blood Transfusion Reaction / Comment(s): Past blood transfusion without reaction. Type of Cardiac Device: AICD Device Placement Date:: 03/27/2017 Past Psychological History: Depression Smoking Status: Former smoker Past Alcohol Use History: Daily, Heavy Past Drug Use History: None Reported - Past Family History Mother Family Medical History: CVA/TIA, Diabetes Mellitus Additional Family Medical History / Comment(s): Mother had "severe" diabetes and a CVA. Father Family Medical History: CVA/TIA, GI Bleed Additional Family Medical History / Comment(s): Father had a CVA Medications and Allergies Home Medications Medication Instructions Recorded Confirmed Type Cholecalciferol (Vitamin D3) 2,000 mcg PO DAILY 02/13/19 03/16/21 History [Vitamin D3] Cyanocobalamin (Vitamin B-12) 1,000 mcg PO DAILY 02/13/19 03/16/21 History [Vitamin B-12] Metoprolol Tartrate [Lopressor] 50 mg PO BID 02/13/19 03/16/21 History Potassium Chloride [Klor-Con 20] 20 meq PO BID 02/13/19 03/16/21 History Rivaroxaban [Xarelto] 20 mg PO HS 02/13/19 03/16/21 History Tamsulosin [Flomax] 0.4 mg PO HS 02/13/19 03/16/21 History Atorvastatin [Lipitor] 20 mg PO DAILY tab 02/25/20 03/16/21 Rx Escitalopram [Lexapro] 10 mg PO DAILY 08/14/20 03/16/21 History allopurinoL [Zyloprim] 100 mg PO HS 08/14/20 03/16/21 History Pantoprazole Sodium [Protonix] 40 mg PO HS 12/09/20 03/16/21 History Sildenafil [Revatio] 20 mg PO DAILY 12/09/20 03/16/21 History Ipratropium/Albuter 20-100Mcg 1 puff INHALATION RT-QID 01/01/21 03/16/21 History [Combivent Respimat 20-100Mcg Inhaler] Acetaminophen Tab [Tylenol Tab] 500 mg PO Q6H PRN 03/16/21 03/16/21 History Amiodarone [Cordarone] 200 mg PO BID 03/16/21 03/16/21 History Furosemide [Lasix] 40 mg PO DAILY 03/16/21 03/16/21 History Levothyroxine Sodium [Synthroid] 50 mcg PO DAILY 03/16/21 03/16/21 History Menthol/Zinc Oxide [Calmoseptine 1 applic TOPICAL DAILY 03/16/21 03/16/21 History Ointment] Allergies Allergy/AdvReac Type Severity Reaction Status Date / Time bee venom protein (honey bee) Allergy Anaphylaxis Verified 03/16/21 17:43 Physical Exam Osteopathic Statement: *. No significant issues noted on an osteopathic structural exam other than those noted in the History and Physical/Consult. Vitals: Vital Signs Temp Pulse Pulse Resp BP BP Pulse Ox 03/17/21 08:15 98.9 F 72 11 L 93/59 98 03/17/21 08:00 69 11 L 03/17/21 07:50 72 03/17/21 07:40 70 03/17/21 07:00 71 21 106/71 97 03/17/21 06:30 71 18 99/64 97 03/17/21 06:00 69 20 98/67 98 03/17/21 05:30 74 22 104/59 97 03/17/21 05:00 86 22 105/70 97 03/17/21 04:30 67 22 103/67 97 03/17/21 04:00 99.3 F 75 22 90/54 96 03/17/21 03:52 93 03/17/21 03:42 88 03/17/21 03:30 73 18 101/68 96 03/17/21 03:00 79 19 94/60 96 03/17/21 02:00 89 21 113/69 98 03/17/21 01:45 97 24 100/68 98 03/17/21 01:30 76 23 94/69 98 03/17/21 01:00 88 20 97/72 96 03/17/21 00:30 86 18 95/67 96 03/17/21 00:00 99.9 F H 96 24 99/63 97 03/16/21 23:30 96 26 H 87/59 96 03/16/21 23:26 96 03/16/21 23:12 101 H 03/16/21 23:00 98 30 H 101/74 97 03/16/21 22:30 98 30 H 88/58 97 03/16/21 22:00 105 H 28 H 83/59 98 03/16/21 21:30 112 H 29 H 84/55 98 03/16/21 21:00 115 H 30 H 85/54 97 03/16/21 20:49 116 H 30 H 90/56 97 03/16/21 20:42 114 H 03/16/21 20:28 114 H 03/16/21 20:00 97.9 F 124 H 38 H 80/50 91 L 03/16/21 18:48 100.6 F H 124 H 30 H 101/79 91 L 03/16/21 18:30 116 H 30 H 95/31 90 L 03/16/21 18:19 113 H 03/16/21 18:00 109 H 98/61 90 L 03/16/21 17:58 114 H 29 H 98/61 90 L 03/16/21 17:30 125 H 103/75 91 L 03/16/21 17:25 113 H 26 H 103/75 91 L 03/16/21 17:06 101 H 03/16/21 17:00 115 H 29 H 85/55 92 L 03/16/21 16:30 129 H 27 H 90/61 93 L 03/16/21 16:00 123 H 28 H 102/60 91 L 03/16/21 15:30 120 H 30 H 85/63 93 L 03/16/21 15:16 99.8 F H 122 H 25 H 82/56 92 L Intake and Output 03/16/21 03/17/21 03/17/21 22:59 06:59 14:59 Intake Total 359.9 1650.842 313.3 Output Total 25 94 100 Balance 334.9 1556.842 213.3 Intake: IV 359.9 1451.4 313.3 Amiodarone 360 mg In 99.9 266.4 33.3 Dextrose 5% in Water 200 ml @ 1 MG/MIN 33.333 mls/ hr IV .Q6H [facility] Rx#: [id number] Magnesium Sulfate 200 Piperacillin-Tazobactam 3 75 .375 gm In Sodium Chloride 0.9% 100 ml @ 25 mls/hr IVPB Q8HR [facility] Rx# :[id number] Sodium Chloride 0.9% 1, 260 910 260 000 ml @ 130 mls/hr IV . Q7H42M [facility] Rx#:[id number] Sodium Chloride 0.9% 1, 20 000 ml @ 20 mls/hr IV . Q24H [facility] Rx#:[id number] Intake, IV Titration 199.442 Amount Amiodarone 360 mg In 199.442 Dextrose 5% in Water 200 ml @ 1 MG/MIN 33.333 mls/ hr IV .Q6H [facility] Rx#: [id number] Output: Urine 25 94 100 Other: Voiding Method Indwelling Catheter Indwelling Catheter Indwelling Catheter Weight 87.09 kg 88.9 kg Lethargic/somnolent white male, BiPAP mask in place, without lelea respiratory distress. The patient does arouse and will speak a few words. HEENT examination is grossly unremarkable. Neck supple. Full range of motion. No adenopathy thyromegaly or neck vein distention. Cardiovascular examination reveals regular rhythm rate. S1-S2 normal. No S3 or S4. No discernible murmur noted. Heart rate is 64. Heart sounds are very distant. Lungs reveal diffuse scattered rhonchi. No wheezes. No crackles. Breath sounds are equal bilaterally. Saturations are 97% on BiPAP. Abdomen soft bowel sounds are heard. No masses or tenderness. Extremities are intact. No cyanosis or clubbing. Mild edema. Skin is without rash or lesion. Neurologic examination is difficult to assess. The patient does appear quite lethargic and somnolent, hence the arterial blood gas. The patient does arouse, though. Results - Laboratory Findings CBC and BMP: 03/17/21 03:42 03/17/21 03:42 ABG ABG pH 7.40 (7.35-7.45) 03/17/21 09:01 ABG pCO2 46 mmHg (35-45) H 03/17/21 09:01 ABG pO2 106 mmHg (83-108) 03/17/21 09:01 ABG O2 Saturation 98.3 % (94-97) H 03/17/21 09:01 PT/INR, D-dimer PT 13.2 sec (9.0-12.0) H 03/16/21 15:50 INR 1.3 (<1.2) H 03/16/21 15:50 Abnormal lab findings: Abnormal Labs 03/16/21 03/16/21 03/16/21 15:50 15:50 15:50 WBC RBC 3.64 L Hgb 11.3 L Hct 36.4 L MCV MCHC RDW 16.3 H Neutrophils # Lymphocytes # (Manual) 0.97 L Monocytes # (Manual) 1.26 H Metamyelocytes # (Man) 0.10 H PT 13.2 H INR 1.3 H ABG pCO2 ABG HCO3 ABG Total CO2 ABG O2 Saturation BUN Creatinine Glucose POC Glucose (mg/dL) Plasma Lactic Acid Lemuel Magnesium Total Bilirubin AST ALT Troponin I Total Protein Albumin Urine Protein 1+ H Urine Mucus Rare H 03/16/21 03/16/21 03/16/21 15:50 15:50 15:50 WBC RBC Hgb Hct MCV MCHC RDW Neutrophils # Lymphocytes # (Manual) Monocytes # (Manual) Metamyelocytes # (Man) PT INR ABG pCO2 ABG HCO3 ABG Total CO2 ABG O2 Saturation BUN 28 H Creatinine Glucose 141 H POC Glucose (mg/dL) Plasma Lactic Acid Lemuel 3.0 H* Magnesium Total Bilirubin AST 101 H ALT 89 H Troponin I 0.127 H* Total Protein Albumin Urine Protein Urine Mucus 03/16/21 03/16/21 03/16/21 19:12 19:13 20:25 WBC RBC Hgb Hct MCV MCHC RDW Neutrophils # Lymphocytes # (Manual) Monocytes # (Manual) Metamyelocytes # (Man) PT INR ABG pCO2 ABG HCO3 ABG Total CO2 ABG O2 Saturation BUN Creatinine Glucose POC Glucose (mg/dL) 130 H Plasma Lactic Acid Lemuel 4.1 H* Magnesium 1.5 L Total Bilirubin AST ALT Troponin I Total Protein Albumin Urine Protein Urine Mucus 03/16/21 03/17/21 03/17/21 20:47 03:42 03:42 WBC 11.4 H RBC 3.28 L Hgb 10.2 L Hct 32.9 L MCV 100.3 H MCHC 30.9 L RDW 16.0 H Neutrophils # 9.1 H Lymphocytes # (Manual) Monocytes # (Manual) Metamyelocytes # (Man) PT INR ABG pCO2 ABG HCO3 ABG Total CO2 ABG O2 Saturation BUN 34 H Creatinine 1.79 H Glucose 127 H POC Glucose (mg/dL) Plasma Lactic Acid Lemuel Magnesium Total Bilirubin 1.6 H AST 592 H ALT 290 H Troponin I Total Protein 6.1 L Albumin 3.2 L Urine Protein 2+ H Urine Mucus Rare H 03/17/21 09:01 WBC RBC Hgb Hct MCV MCHC RDW Neutrophils # Lymphocytes # (Manual) Monocytes # (Manual) Metamyelocytes # (Man) PT INR ABG pCO2 46 H ABG HCO3 29 H ABG Total CO2 30 H ABG O2 Saturation 98.3 H BUN Creatinine Glucose POC Glucose (mg/dL) Plasma Lactic Acid Lemuel Magnesium Total Bilirubin AST ALT Troponin I Total Protein Albumin Urine Protein Urine Mucus - Diagnostic Findings Chest x-ray: image reviewed Assessment and Plan Assessment: Acute hypoxemic respiratory failure likely secondary to congestive heart failure . History of chronic alcohol abuse. History of chronic atrial fibrillation, with acute rapid ventricular response. History of deep venous thrombosis. History of gastroesophageal reflux disease. Prior history of GI bleed. History of hyperlipidemia. History of myocardial infarction. History of status post AICD placement. History of BPH. History of tobacco use, rule out COPD. Plan: Plan dated 03/17/2021. A blood gas was obtained. Interestingly, the blood gas looks pretty good on BiPAP. The patient remains on amiodarone at 1 mg/m and saline at 130 mL an hour. Because of the appearance of the chest x-ray in the elevated N-terminal proBNP, the fluids will be cut back. Additional recommendations and suggestions are forthcoming. If not or ready done, a pro-calcitonin level be ordered. We will continue to follow. Prognosis is guarded. Additional recommendations and suggestions are forthcoming. Time with Patient: Greater than 30
[2021-03-17] MEDS: PANTOPRAZOLE 40 MG/10 ML VIAL IV SCH (10:13)
[2021-03-17] MEDS: FUROSEMIDE 10 MG/ML 4 ML VIAL IV SCH ×2 (10:13→20:58)
[2021-03-17] MEDS: SPIRONOLACTONE 25 MG TAB PO SCH (10:14)
--- NOTE | 2021-03-17 10:49 | ECHOF ---
Referral Reason:cm MEASUREMENTS -------- HEIGHT: 177.8 cm WEIGHT: 88.5 kg BP: 101/68 RVIDd: 4.4 cm (< 3.3) IVSd: 1.4 cm (0.6 - 1.1) LVIDd: 4.7 cm (3.9 - 5.3) LVPWd: 1.4 cm (0.6 - 1.1) IVSs: 2.0 cm LVIDs: 3.6 cm LVPWs: 1.8 cm LAESV Index (A-L): 48.68 ml/m Ao Diam: 4.3 cm (2.0 - 3.7) AV Cusp: 2.3 cm (1.5 - 2.6) MV EXCURSION: 26.030 mm (> 18.000) MV EF SLOPE: 64 mm/s (70 - 150) EPSS: 1.7 cm AR PHT: 854 ms RAP: 15.00 mmHg RVSP: 45.26 mmHg FINDINGS -------- This was a technically difficult study with suboptimal views. The left ventricular size is normal. There is moderate concentric left ventricular hypertrophy. O verall left ventricular systolic function is severely impaired with, an EF < 20%. The right ventricle is severely enlarged. LA is severely dilated >40 ml/m2 The right atrium is normal in size. 5 ml of Lumason was utilized for enhancement of images. Interatrial and interventricular septum intact. There is mild aortic valve sclerosis. There is mild aortic regurgitation. Mild mitral annular calcification present. Mild mitral regurgitation is present. Mild tricuspid regurgitation present. There is mild pulmonary hypertension. The right ventricular systolic pressure, as measured by Doppler, is 45.26mmHg. The pulmonic valve was not well visualized. The aortic root is dilated measuring 4.3cm. The inferior vena cava is dilated with no significant inspiratory collapse which is consistent estima onofre right atrial pressure of >15 mmHg. There is a trivial pericardial effusion present. CONCLUSIONS -------- 1. The left ventricular size is normal. 2. There is moderate concentric left ventricular hypertrophy. 3. Overall left ventricular systolic function is severely impaired with, an EF < 20%. 4. The right ventricle is severely enlarged. 5. LA is severely dilated >40 ml/m2 6. 5 ml of Lumason was utilized for enhancement of images. 7. There is mild aortic valve sclerosis. 8. There is mild aortic regurgitation. 9. Mild mitral annular calcification present. 10. Mild mitral regurgitation is present. 11. Mild tricuspid regurgitation present. 12. There is mild pulmonary hypertension. 13. The right ventricular systolic pressure, as measured by Doppler, is 45.26mmHg. 14. The aortic root is dilated measuring 4.3cm. 15. The inferior vena cava is dilated with no significant inspiratory collapse which is consistent es timated right atrial pressure of >15 mmHg. 16. There is a trivial pericardial effusion present. ORTHOPAEDIC NURSE: Nusrat Fuller RDCS
[2021-03-17] MEDS: METOPROLOL TARTRATE 25 MG TAB PO SCH ×2 (13:12→20:57)
[2021-03-17] MEDS: SILDENAFIL 20 MG TAB PO SCH (13:36)
[2021-03-17] MEDS: ESCITALOPRAM 10 MG TAB PO SCH (13:37)
[2021-03-17] MEDS: LEVOTHYROXINE 50 MCG TAB PO SCH (13:37)
[2021-03-17] MEDS: CYANOCOBALAMIN 500 MCG TAB PO SCH (13:37)
[2021-03-17] MEDS: MENTHOL-ZINC OXIDE OINT 113 GM TUBE TOPICAL SCH (13:37)
[2021-03-17] MEDS: AMIODARONE 360 MG in DEXTROSE 5% IN WATER 200 ML IV SCH ×4 (15:26→20:19)
--- NOTE | 2021-03-17 17:28 | P.HPIM ---
History of Present Illness H&P Date: 03/17/21 Chief Complaint: Short of breath History of presenting complaint: 81-year-old patient who follows with visiting physicians Dr. Wall. Chronic stable medical conditions include atrial fibrillation, , GERD, hyperlipidemia, coronary artery disease, cardiomyopathy, AICD, BPH. Patient lives with his daughter Brie. Normally uses a walker. Was drinking heavily up until July 2020. ex-smoker. Home oxygen-2 L Admitted from January 01 through January 06: with CHF exacerbation, pneumonia. UTI with cystitis. Positive for pseudomonas. Presented to the ER with increasing shortness of breath. Some wheezing. This morning on a BiPAP with a setting of 14/5/40%. Patient had a wide-complex tachycardia. There is a question about being V. tach. Patient was put on IV amiodarone by Dr. Villarreal. Also found to have infiltrates on the chest x-ray started IV antibiotics in the form of IV Zosyn. Currently not able to give much of a history because of BiPAP. Review of systems: Difficult to obtain because of shortness of breath BiPAP Past medical history to include: Atrial fibrillation, CHF EF 30-35%, DVT, GERD, GI bleed, hyperlipidemia, [place], cardiomyopathy, AICD, BPH, gait dysfunction using a walker, depression, moderate mitral regurgitation, moderate to severe tricuspid regurgitation, severe pulmonary hypertension. Home oxygen 2 L Social history: Patient is daughter Brie lives with him. Uses walker. Patient smoked for 57 years. Stopped in 2010. Was drinking heavily up until July 2021. Physical examination: VITAL SIGNS: 99.8, 122, 25, 82/56, 92% on 4 L: Upon presentation GENERAL: BMI 28.1, reclining in bed with a BiPAP EYES: Pupils equal. Conjunctiva normal. HEENT: External appearance of nose and ears normal, oral cavity: Unable to assess NECK: JVD unable to assess: masses not palpable. HEART: First and second heart sounds are normal; mild edema. LUNGS: Respiratory rate increased; decreased breath sounds ABDOMEN: Soft, nontender, liver spleen not palpable, no masses palpable. PSYCH: Tired, not able to assess MUSCULAR skeletal: Evidence of OA . NEUROLOGICAL: Cranial nerves grossly intact; no facial asymmetry, power and sensation grossly intact. LYMPHATICS: No lymph nodes palpable in the axilla and neck INVESTIGATIONS, reviewed in the clinical context: WBC 11.4 hemoglobin 10.2 platelets 216 potassium 4.7 BUN 34 creatinine 1.79 and total bilirubin 1.6 AST 592, ALT 290 procalcitonin 1.14 2-D echocardiogram: Moderate concentric LVH. EF less than 20% right ventricle severely enlarged Admission labs: WBC 9.7 hemoglobin 11.3 platelets 21 potassium 4.6 creatinine 1.13 AST 101 ALT 89 troponin I 0.127 proBNP 33124 TSH 3.9 UA protein 1+. Coronavirus PCR: Not detected Chest x-ray film personally reviewed by me-bilateral infiltrates Previous labs: BUN 33 creatinine 1.4 on December: 2-D echocardiogram: Moderate concentric LVH, EF 30-35%, wall motion abnormality, moderate MR, moderate to severe TR, severe pulmonary hyp ertension Assessment and plan: -Acute on Chronic congestive heart failure from systolic dysfunction EF less than 20% IV Lasix 40 mg, twice a day - pneumonia suspected gram-negative organism IV Zosyn -Acute hypoxic respiratory failure from CHF and pneumonia Patient requiring BiPAP -Chronic medical debility, uses a walker at baseline PTOT - ventricular tachycardia IV amiodarone -History of atrial fibrillation -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 Hold Lipitor -Acute kidney injury possibly ATN, from infection Follow labs. Nephrology consult Admitted ICU. DuoNeb, IV amiodarone, IV Lasix. IV Zosyn. Other home m edications reviewed. Currently on BiPAP. Follow with pulmonary and cardiology. Past Medical History Past Medical History: Atrial Fibrillation, Heart Failure, Deep Vein Thrombosis (DVT), GERD/Reflux, GI Bleed, Hyperlipidemia, Myocardial Infarction ([place]), Pne umonia, Prostate Disorder, Syncope Additional Past Medical History / Comment(s): Paroxysmal Afib, cardiac valve disease, cardiomyopathy, recurrent VT with AICD, lower GI bleed, UTIs, urinary retention with IDCs at times but no issues since circumcism, BPH, iron anemia, gout R foot, FALLS, gait dysturbance, epistaxis requiring transfusion in past, DVT L arm Last Myocardial Infarction Date:: 2010 History of Any Multi-Drug Resistant Organisms: None Reported Date of last positivie culture/infection: 2014 MDRO Source:: stool Past Surgical History: AICD, Cardiac Ablation, Pacemaker Additional Past Surgical History / Comment(s): 2010 dual AICD, bilateral cataract removals/lens tranplants, adult circumcism Past Anesthesia/Blood Transfusion Reactions: No Reported Reaction Additional Past Anesthesia/Blood Transfusion Reaction / Comment(s): Past blood transfusion without reaction. Type of Cardiac Device: AICD Device Placement Date:: 03/27/2017 Past Psychological History: Depression Additional Psychological History / Comment(s): Pt has his elizabet, Brie residing with him. He states he is up and about with wheeled walker. Elizabet drives and helps manage his medications. Smoking Status: Current every day smoker Past Alcohol Use History: Daily, Heavy Additional Past Alcohol Use History / Comment(s): Pt started smoking in 3 and quit in 2010. Pt states he was a heavy drinker but quit 08/16/21. per family patient had alcohol in his home and started drinking again on sunday and also begain smoking again Past Drug Use History: None Reported - Past Family History Mother Family Medical History: CVA/TIA, Diabetes Mellitus Additional Family Medical History / Comment(s): Mother had "severe" diabetes and a CVA. Father Family Medical History: CVA/TIA, GI Bleed Additional Family Medical History / Comment(s): Father had a CVA Medications and Allergies Home Medications Medication Instructions Recorded Confirmed Type Cholecalciferol (Vitamin D3) 2,000 mcg PO DAILY 02/13/19 03/16/21 History [Vitamin D3] Cyanocobalamin (Vitamin B-12) 1,000 mcg PO DAILY 02/13/19 03/16/21 History [Vitamin B-12] Metoprolol Tartrate [Lopressor] 50 mg PO BID 02/13/19 03/16/21 History Potassium Chloride [Klor-Con 20] 20 meq PO BID 02/13/19 03/16/21 History Rivaroxaban [Xarelto] 20 mg PO HS 02/13/19 03/16/21 History Tamsulosin [Flomax] 0.4 mg PO HS 02/13/19 03/16/21 History Atorvastatin [Lipitor] 20 mg PO DAILY tab 02/25/20 03/16/21 Rx Escitalopram [Lexapro] 10 mg PO DAILY 08/14/20 03/16/21 History allopurinoL [Zyloprim] 100 mg PO HS 08/14/20 03/16/21 History Pantoprazole Sodium [Protonix] 40 mg PO HS 12/09/20 03/16/21 History Sildenafil [Revatio] 20 mg PO DAILY 12/09/20 03/16/21 History Ipratropium/Albuter 20-100Mcg 1 puff INHALATION RT-QID 01/01/21 03/16/21 History [Combivent Respimat 20-100Mcg Inhaler] Acetaminophen Tab [Tylenol Tab] 500 mg PO Q6H PRN 03/16/21 03/16/21 History Amiodarone [Cordarone] 200 mg PO BID 03/16/21 03/16/21 History Furosemide [Lasix] 40 mg PO DAILY 03/16/21 03/16/21 History Levothyroxine Sodium [Synthroid] 50 mcg PO DAILY 03/16/21 03/16/21 History Menthol/Zinc Oxide [Calmoseptine 1 applic TOPICAL DAILY 03/16/21 03/16/21 History Ointment] Allergies Allergy/AdvReac Type Severity Reaction Status Date / Time bee venom protein (honey bee) Allergy Anaphylaxis Verified 03/16/21 17:43 Physical Exam Vitals: Vital Signs Temp Pulse Pulse Resp BP BP Pulse Ox 03/17/21 11:17 76 03/17/21 11:03 75 03/17/21 10:00 58 L 20 84/58 96 03/17/21 09:30 64 22 86/55 97 03/17/21 09:00 74 28 H 99/56 97 03/17/21 08:15 98.9 F 72 11 L 93/59 98 03/17/21 08:00 69 11 L 03/17/21 07:50 72 03/17/21 07:40 70 03/17/21 07:00 71 21 106/71 97 03/17/21 06:30 71 18 99/64 97 03/17/21 06:00 69 20 98/67 98 03/17/21 05:30 74 22 104/59 97 03/17/21 05:00 86 22 105/70 97 03/17/21 04:30 67 22 103/67 97 03/17/21 04:00 99.3 F 75 22 90/54 96 03/17/21 03:52 93 03/17/21 03:42 88 03/17/21 03:30 73 18 101/68 96 03/17/21 03:00 79 19 94/60 96 03/17/21 02:00 89 21 113/69 98 03/17/21 01:45 97 24 100/68 98 03/17/21 01:30 76 23 94/69 98 03/17/21 01:00 88 20 97/72 96 03/17/21 00:30 86 18 95/67 96 03/17/21 00:00 99.9 F H 96 24 99/63 97 03/16/21 23:30 96 26 H 87/59 96 03/16/21 23:26 96 03/16/21 23:12 101 H 03/16/21 23:00 98 30 H 101/74 97 03/16/21 22:30 98 30 H 88/58 97 03/16/21 22:00 105 H 28 H 83/59 98 03/16/21 21:30 112 H 29 H 84/55 98 03/16/21 21:00 115 H 30 H 85/54 97 03/16/21 20:49 116 H 30 H 90/56 97 03/16/21 20:42 114 H 03/16/21 20:28 114 H 03/16/21 20:00 97.9 F 124 H 38 H 80/50 91 L 03/16/21 18:48 100.6 F H 124 H 30 H 101/79 91 L 03/16/21 18:30 116 H 30 H 95/31 90 L 03/16/21 18:19 113 H 03/16/21 18:00 109 H 98/61 90 L 03/16/21 17:58 114 H 29 H 98/61 90 L 03/16/21 17:30 125 H 103/75 91 L 03/16/21 17:25 113 H 26 H 103/75 91 L 03/16/21 17:06 101 H 03/16/21 17:00 115 H 29 H 85/55 92 L 03/16/21 16:30 129 H 27 H 90/61 93 L 03/16/21 16:00 123 H 28 H 102/60 91 L 03/16/21 15:30 120 H 30 H 85/63 93 L 03/16/21 15:16 99.8 F H 122 H 25 H 82/56 92 L Intake and Output 03/16/21 03/17/21 03/17/21 22:59 06:59 14:59 Intake Total 359.9 1650.842 333.3 Output Total 25 94 130 Balance 334.9 1556.842 203.3 Intake: IV 359.9 1451.4 333.3 Amiodarone 360 mg In 99.9 266.4 33.3 Dextrose 5% in Water 200 ml @ 1 MG/MIN 33.333 mls/ hr IV .Q6H ONE Rx#: [id number] Magnesium Sulfate 200 Piperacillin-Tazobactam 3 75 .375 gm In Sodium Chloride 0.9% 100 ml @ 25 mls/hr IVPB Q8HR [facility] Rx# :[id number] Sodium Chloride 0.9% 1, 260 910 260 000 ml @ 130 mls/hr IV . Q7H42M [facility] Rx#:[id number] Sodium Chloride 0.9% 1, 40 000 ml @ 20 mls/hr IV . Q24H [facility] Rx#:[id number] Intake, IV Titration 199.442 Amount Amiodarone 360 mg In 199.442 Dextrose 5% in Water 200 ml @ 1 MG/MIN 33.333 mls/ hr IV .Q6H ONE Rx#: [id number] Output: Urine 25 94 130 Other: Voiding Method Indwelling Catheter Indwelling Catheter Indwelling Catheter Weight 87.09 kg 88.9 kg 88.9 kg Results CBC & Chem 7: 03/17/21 03:42 03/17/21 03:42 Labs: Abnormal Lab Results - Last 24 Hours (Table) 03/16/21 03/16/21 03/16/21 Range/Units 15:50 15:50 15:50 WBC (3.8-10.6) k/uL RBC 3.64 L (4.30-5.90) m/uL Hgb 11.3 L (13.0-17.5) gm/dL Hct 36.4 L (39.0-53.0) % MCV (80.0-100.0) fL MCHC (31.0-37.0) g/dL RDW 16.3 H (11.5-15.5) % Neutrophils # (1.3-7.7) k/uL Lymphocytes # (Manual) 0.97 L (1.0-4.8) k/uL Monocytes # (Manual) 1.26 H (0-1.0) k/uL Metamyelocytes # (Man) 0.10 H (0) k/uL PT 13.2 H (9.0-12.0) sec INR 1.3 H (<1.2) ABG pCO2 (35-45) mmHg ABG HCO3 (21-25) mmol/L ABG Total CO2 (19-24) mmol/L ABG O2 Saturation (94-97) % BUN (9-20) mg/dL Creatinine (0.66-1.25) mg/dL Glucose (74-99) mg/dL POC Glucose (mg/dL) (75-99) mg/dL Plasma Lactic Acid Lemuel (0.7-2.0) mmol/L Magnesium (1.6-2.3) mg/dL Total Bilirubin (0.2-1.3) mg/dL AST (17-59) U/L ALT (4-49) U/L Troponin I (0.000-0.034) ng/mL Total Protein (6.3-8.2) g/dL Albumin (3.5-5.0) g/dL Urine Protein 1+ H (Negative) Urine Mucus Rare H (None) /hpf 03/16/21 03/16/21 03/16/21 Range/Units 15:50 15:50 15:50 WBC (3.8-10.6) k/uL RBC (4.30-5.90) m/uL Hgb (13.0-17.5) gm/dL Hct (39.0-53.0) % MCV (80.0-100.0) fL MCHC (31.0-37.0) g/dL RDW (11.5-15.5) % Neutrophils # (1.3-7.7) k/uL Lymphocytes # (Manual) (1.0-4.8) k/uL Monocytes # (Manual) (0-1.0) k/uL Metamyelocytes # (Man) (0) k/uL PT (9.0-12.0) sec INR (<1.2) ABG pCO2 (35-45) mmHg ABG HCO3 (21-25) mmol/L ABG Total CO2 (19-24) mmol/L ABG O2 Saturation (94-97) % BUN 28 H (9-20) mg/dL Creatinine (0.66-1.25) mg/dL Glucose 141 H (74-99) mg/dL POC Glucose (mg/dL) (75-99) mg/dL Plasma Lactic Acid Lemuel 3.0 H* (0.7-2.0) mmol/L Magnesium (1.6-2.3) mg/dL Total Bilirubin (0.2-1.3) mg/dL AST 101 H (17-59) U/L ALT 89 H (4-49) U/L Troponin I 0.127 H* (0.000-0.034) ng/mL Total Protein (6.3-8.2) g/dL Albumin (3.5-5.0) g/dL Urine Protein (Negative) Urine Mucus (None) /hpf 03/16/21 03/16/21 03/16/21 Range/Units 19:12 19:13 20:25 WBC (3.8-10.6) k/uL RBC (4.30-5.90) m/uL Hgb (13.0-17.5) gm/dL Hct (39.0-53.0) % MCV (80.0-100.0) fL MCHC (31.0-37.0) g/dL RDW (11.5-15.5) % Neutrophils # (1.3-7.7) k/uL Lymphocytes # (Manual) (1.0-4.8) k/uL Monocytes # (Manual) (0-1.0) k/uL Metamyelocytes # (Man) (0) k/uL PT (9.0-12.0) sec INR (<1.2) ABG pCO2 (35-45) mmHg ABG HCO3 (21-25) mmol/L ABG Total CO2 (19-24) mmol/L ABG O2 Saturation (94-97) % BUN (9-20) mg/dL Creatinine (0.66-1.25) mg/dL Glucose (74-99) mg/dL POC Glucose (mg/dL) 130 H (75-99) mg/dL Plasma Lactic Acid Lemuel 4.1 H* (0.7-2.0) mmol/L Magnesium 1.5 L (1.6-2.3) mg/dL Total Bilirubin (0.2-1.3) mg/dL AST (17-59) U/L ALT (4-49) U/L Troponin I (0.000-0.034) ng/mL Total Protein (6.3-8.2) g/dL Albumin (3.5-5.0) g/dL Urine Protein (Negative) Urine Mucus (None) /hpf 03/16/21 03/17/21 03/17/21 Range/Units 20:47 03:42 03:42 WBC 11.4 H (3.8-10.6) k/uL RBC 3.28 L (4.30-5.90) m/uL Hgb 10.2 L (13.0-17.5) gm/dL Hct 32.9 L (39.0-53.0) % MCV 100.3 H (80.0-100.0) fL MCHC 30.9 L (31.0-37.0) g/dL RDW 16.0 H (11.5-15.5) % Neutrophils # 9.1 H (1.3-7.7) k/uL Lymphocytes # (Manual) (1.0-4.8) k/uL Monocytes # (Manual) (0-1.0) k/uL Metamyelocytes # (Man) (0) k/uL PT (9.0-12.0) sec INR (<1.2) ABG pCO2 (35-45) mmHg ABG HCO3 (21-25) mmol/L ABG Total CO2 (19-24) mmol/L ABG O2 Saturation (94-97) % BUN 34 H (9-20) mg/dL Creatinine 1.79 H (0.66-1.25) mg/dL Glucose 127 H (74-99) mg/dL POC Glucose (mg/dL) (75-99) mg/dL Plasma Lactic Acid Lemuel (0.7-2.0) mmol/L Magnesium (1.6-2.3) mg/dL Total Bilirubin 1.6 H (0.2-1.3) mg/dL AST 592 H (17-59) U/L ALT 290 H (4-49) U/L Troponin I (0.000-0.034) ng/mL Total Protein 6.1 L (6.3-8.2) g/dL Albumin 3.2 L (3.5-5.0) g/dL Urine Protein 2+ H (Negative) Urine Mucus Rare H (None) /hpf 03/17/21 Range/Units 09:01 WBC (3.8-10.6) k/uL RBC (4.30-5.90) m/uL Hgb (13.0-17.5) gm/dL Hct (39.0-53.0) % MCV (80.0-100.0) fL MCHC (31.0-37.0) g/dL RDW (11.5-15.5) % Neutrophils # (1.3-7.7) k/uL Lymphocytes # (Manual) (1.0-4.8) k/uL Monocytes # (Manual) (0-1.0) k/uL Metamyelocytes # (Man) (0) k/uL PT (9.0-12.0) sec INR (<1.2) ABG pCO2 46 H (35-45) mmHg ABG HCO3 29 H (21-25) mmol/L ABG Total CO2 30 H (19-24) mmol/L ABG O2 Saturation 98.3 H (94-97) % BUN (9-20) mg/dL Creatinine (0.66-1.25) mg/dL Glucose (74-99) mg/dL POC Glucose (mg/dL) (75-99) mg/dL Plasma Lactic Acid Lemuel (0.7-2.0) mmol/L Magnesium (1.6-2.3) mg/dL Total Bilirubin (0.2-1.3) mg/dL AST (17-59) U/L ALT (4-49) U/L Troponin I (0.000-0.034) ng/mL Total Protein (6.3-8.2) g/dL Albumin (3.5-5.0) g/dL Urine Protein (Negative) Urine Mucus (None) /hpf Thrombosis Risk Factor Assmnt - Choose All That Apply Any of the Below Risk Factors Present?: Yes Each Factor Represents 1 point: Medical pt on bed rest Other Risk Factors: Yes Each Risk Factor Represents 2 Points: Patient confined to bed Each Risk Factor Represents 3 Points: Age 75 years or older, History of DVT/PE Other congenital or acquired thrombophilia - If yes, enter type in comment: No Thrombosis Risk Factor Assessment Total Risk Factor Score: 9 Thrombosis Risk Factor Assessment Level: High Risk
[2021-03-17] MEDS: TAMSULOSIN 0.4 MG CAP.ER.24H PO SCH (20:57)
[2021-03-17] MEDS: RIVAROXABAN 20 MG TAB PO SCH (20:58)
[2021-03-17] MEDS: allopurinoL 100 MG TAB PO SCH (20:58)
[2021-03-18] MEDS: ACETAMINOPHEN TAB 500 MG TAB PO PRN ×2 (00:01→20:43)
[2021-03-18] MEDS: IPRATROPIUM-ALBUTEROL 3 ML NEB INHALATION SCH ×9 (00:33→23:33)
[2021-03-18] MEDS: AMIODARONE 360 MG in DEXTROSE 5% IN WATER 200 ML IV SCH ×2 (01:49)
[2021-03-18 04:43] LABS: HCT 29.9 % (39.0-53.0); HGB 9.3 gm/dL (13.0-17.5); Hypochromasia Slight; MCH 30.7 pg (25.0-35.0); MCHC 31.2 g/dL (31.0-37.0); MCV 98.2 fL (80.0-100.0); Macrocytosis Slight; Mean Platelet Volume 8.7; Platelet Count 186 k/uL (150-450); RBC 3.05 m/uL (4.30-5.90); RDW 15.8 % (11.5-15.5)
[2021-03-18 05:01] LABS: Albumin 2.8 g/dL (3.5-5.0); Calcium 8.5 mg/dL (8.4-10.2); Magnesium 1.9 mg/dL (1.6-2.3); Total Bilirubin 1.1 mg/dL (0.2-1.3); Total Protein 5.7 g/dL (6.3-8.2)
[2021-03-18] MEDS: LEVOTHYROXINE 50 MCG TAB PO SCH (05:57)
[2021-03-18] MEDS: PIPERACILLIN-TAZOBACTAM 3.375 GM in SODIUM CHLORIDE 0.9% 100 ML IVPB SCH ×2 (08:29→16:19)
[2021-03-18] MEDS: FUROSEMIDE 10 MG/ML 4 ML VIAL IV SCH ×2 (08:30→20:43)
[2021-03-18] MEDS: PANTOPRAZOLE 40 MG/10 ML VIAL IV SCH (08:30)
[2021-03-18] MEDS: SILDENAFIL 20 MG TAB PO SCH (08:31)
[2021-03-18] MEDS: AMIODARONE 200 MG TAB PO SCH ×2 (08:31→18:00)
[2021-03-18] MEDS: MENTHOL-ZINC OXIDE OINT 113 GM TUBE TOPICAL SCH (08:31)
[2021-03-18] MEDS: SPIRONOLACTONE 25 MG TAB PO SCH (08:31)
[2021-03-18] MEDS: ESCITALOPRAM 10 MG TAB PO SCH (08:31)
[2021-03-18] MEDS: CYANOCOBALAMIN 500 MCG TAB PO SCH (08:31)
[2021-03-18] MEDS: METOPROLOL TARTRATE 25 MG TAB PO SCH ×2 (08:31→20:42)
[2021-03-18] MEDS: SODIUM CHLORIDE 0.9% 1,000 ML IV SCH (08:32)
--- NOTE | 2021-03-18 08:41 | PN ---
PROGRESS NOTE Mr. Hussein is an 81-year-old male with known history of severe cardiomyopathy status post ICD implantation who presented to the hospital with progressive dyspnea and change in mental status. He is more awake and alert this morning. Complaining of left shoulder and right chest discomfort. The shoulder discomfort is positional. He continues to be in atrial fibrillation. He has no evidence of ventricular tachycardia. He denies any dizziness or palpitation. His BP is stable. He denies any nausea. He continues to be on IV amiodarone. His urine output has been stable. He denies any cough. According to him, he has been taking his medication on a regular basis at home. He continues to be at this time on amiodarone IV, Lasix 40 mg IV q.12 hours, metoprolol tartrate 25 mg twice a day, Xarelto 20 mg daily, Revatio 20 mg daily, spironolactone 25 mg daily. PHYSICAL EXAMINATION: Blood pressure 112/60 with a heart rate in 70s. Lungs with crackles bilaterally, no wheezes. Heart is irregularly, irregular, S1, S2. No S3 with a systolic murmur. No diastolic murmur. No rub. Abdomen is soft and nontender. Extremities with no significant edema. LAB DATA: Hemoglobin 9.3, BUN and creatinine of 44 and 2.05. His AST is 1039. His ALT is 701, which is elevated compared with his admission. His NT proBNP is up to 31,500. White blood cell of 3000. IMPRESSION: 1. Respiratory failure with evidence of congestive heart failure in a patient with known history of severe cardiomyopathy. 2. Ventricular tachycardia resolved. 3. Atrial fibrillation, anticoagulated. 4. Worsening renal function, probably cardiorenal syndrome. 5. Severe pulmonary hypertension. 6. Possible pneumonia. 7. Chronic tobacco use. 8. Chronic alcohol intake. 9. Elevated liver function tests, most likely representing liver congestion. RECOMMENDATION: I will switch him to oral amiodarone. Will continue to follow his renal function. We will continue diuresis at this time and follow his liver and renal function closely. Increase his activity gradually and depending on his progress further recommendations will be made. The prognosis remains guarded. MMODL / IJN: [id number] /
--- NOTE | 2021-03-18 09:09 | XR ---
EXAMINATION TYPE: XR chest 1V portable DATE OF EXAM: 03/18/2021 COMPARISON: 03/17/2021 HISTORY: Oxygen requirement TECHNIQUE: Single frontal view of the chest is obtained. FINDINGS: Interval worsening of right mid and lower lung zone airspace disease. Left basilar pleural-parenchyma l disease appears similar. Enlargement of the cardiac silhouette ICD is unchanged. IMPRESSION: Interval worsening of right mid and lower lung zone airspace disease. Left basilar pleural-parenchyma l disease appears similar.
--- NOTE | 2021-03-18 10:01 | P.PN ---
Subjective Progress Note Date: 03/18/21 Principal diagnosis: dyspnea, hypoxia 81-year-old male, who is admitted to the hospital, on March 16. He came into the emergency room with complaints of shortness of breath. He was brought in by EMS. He apparently is been having difficulty with breathing for some time. The patient is a very poor historian. The patient apparently did not admit to any chest pain or chest pressure. There is no cough, fever, chills, nausea, vomiting, or diarrhea. Currently, the patient is on BiPAP, with settings of 14/5 and 40%. He is receiving amiodarone at 1 mg/m, saline at 130 mL an hour, and a blood gas will be done. The patient has a history of chronic hypoxemic respiratory failure, chronic alcohol abuse, atrial fibrillation, DVT, gastroesophageal reflux disease, gastrointestinal bleed, myocardial infarction, hyperlipidemia, status post AICD placement, and BPH. Laboratory data includes a white count 11.4, hemoglobin 10.2, hematocrit 32.9, and platelet count 216,000. Blood gases show pO2 106, pCO2 46, with a normal pH. Sodium 138, potassium 4.7, chlorides 102, CO2 29, anion gap 7, BUN 34, creatinine 1.79. AST was 592, and ALT was 290. Urine was negative. The patient's troponin level was 0.127 and the N-terminal proBNP was nearly 11,000. The TSH was normal. Chest x-ray in my opinion, shows cardiomegaly, changes of vascular decompensation. Small effusions and fluid in the minor fissure as well. On 03/18/2001 patient seen in follow-up in the intensive care unit, this morning he is on 3 L of oxygen, his pulse ox is 94%, he only for his BiPAP very briefly for a few minutes last night, and then asked for her to be removed, BiPAP settings were 14/5 and FiO2 of 40%. This morning he appears to be in no acute distress, currently on 0.9 normal saline at 20 ML per hour, and amiodarone is currently off. She remains in atrial fibrillation the rate is controlled at 74 BPM, overall he is looking better and feeling better. he is awake and alert, he is answering questions appropriately, breathing comfortably. No complaint of chest pain, no cough, he remains on breathing treatments, and antibiotics in the form of Zosyn. blood culture showed no growth, he is afebrile this morning, T- max in the last 24 hours was 99.9. today's labs have been reviewed, showing white blood cell count of 8, hemoglobin of 9.3, electrolytes within normal limits, B1 is 44, creatinine is 2.05. His repeat proBNP came back at 31,005 100, his pro calcitonin level was elevated at 1.14.today's follow-up chest x-ray shows interval worsening of right mid and lower lung zone airspace disease. There is left basilar pleural parenchymal disease appears to be stable compared to yesterday's exam. Objective - Vital Signs Vital signs: Vital Signs Temp 98.3 F 03/18/21 08:00 Pulse 90 03/18/21 08:00 Resp 22 03/18/21 08:00 BP 110/74 03/18/21 08:00 Pulse Ox 92 L 03/18/21 08:00 Intake & Output 03/17/21 03/18/21 03/18/21 18:59 06:59 18:59 Intake Total 768.3 1186.108 360 Output Total 660 520 105 Balance 108.3 666.108 255 Weight 88.9 kg 92.1 kg Intake: IV 693.3 340 120 Amiodarone 360 mg In 33.3 Dextrose 5% in Water 200 ml @ 1 MG/MIN 33.333 mls/ hr IV .Q6H [facility] Rx#: [id number] Piperacillin-Tazobactam 3 200 100 100 .375 gm In Sodium Chloride 0.9% 100 ml @ 25 mls/hr IVPB Q8HR [facility] Rx# :[id number] Sodium Chloride 0.9% 1, 260 000 ml @ 130 mls/hr IV . Q7H42M [facility] Rx#:[id number] Sodium Chloride 0.9% 1, 200 240 20 000 ml @ 20 mls/hr IV . Q24H [facility] Rx#:[id number] Intake, IV Titration 346.108 Amount Amiodarone 360 mg In 346.108 Dextrose 5% in Water 200 ml @ 1 MG/MIN 33.333 mls/ hr IV .Q6H [facility] Rx#: [id number] Oral 75 500 240 Output: Urine 660 520 105 Other: Voiding Method Indwelling Catheter Indwelling Catheter Indwelling Catheter # Bowel Movements 1 - Exam GENERAL EXAM: Alert, very pleasant, 81-year-old white male, on 3 L of oxygen and the pulse ox of 94-97% comfortable in no apparent distress. HEAD: Normocephalic/atraumatic. EYES: Normal reaction of pupils, equal size. Conjunctiva pink, sclera white. NOSE: Clear with pink turbinates. THROAT: No erythema or exudates. NECK: No masses, no JVD, no thyroid enlargement, no adenopathy. CHEST: No chest wall deformity. Symmetrical expansion. LUNGS: Equal air entry with no crackles, wheeze, rhonchi or dullness. CVS: Irregular rate and rhythm, normal S1 and S2, no gallops, no murmurs, no rubs ABDOMEN: Soft, nontender. No hepatosplenomegaly, normal bowel sounds, no guarding or rigidity. EXTREMITIES: No clubbing, no edema, no cyanosis, 2+ pulses and upper and lower extremities. MUSCULOSKELETAL: Muscle strength and tone normal. SPINE: No scoliosis or deformity SKIN: No rashes CENTRAL NERVOUS SYSTEM: Alert and oriented -3. No focal deficits, tone is normal in all 4 extremities. PSYCHIATRIC: Alert and oriented -3. Appropriate affect. Intact judgment and insight. - Labs CBC & Chem 7: 03/18/21 04:05 03/18/21 04:05 Labs: Abnormal Lab Results - Last 24 Hours (Table) 03/17/21 03/18/21 03/18/21 Range/Units 03:42 04:05 04:05 RBC 3.05 L (4.30-5.90) m/uL Hgb 9.3 L (13.0-17.5) gm/dL Hct 29.9 L (39.0-53.0) % RDW 15.8 H (11.5-15.5) % BUN 44 H (9-20) mg/dL Creatinine 2.05 H (0.66-1.25) mg/dL Glucose 100 H (74-99) mg/dL AST 1039 H (17-59) U/L ALT 701 H (4-49) U/L Total Protein 5.7 L (6.3-8.2) g/dL Albumin 2.8 L (3.5-5.0) g/dL Procalcitonin 1.14 H (0.02-0.09) ng/mL Microbiology - Last 24 Hours (Table) 03/16/21 15:42 Blood Culture - Preliminary Blood No Growth after 24 hours 03/16/21 15:27 Blood Culture - Preliminary Blood No Growth after 24 hours Assessment and Plan Plan: assessment: #1. Acute hypoxic respiratory failure secondary to acute exacerbation of CHF #2. History of chronic alcohol abuse #3. History of chronic atrial fibrillation with acute rapid ventricular response. Currently better controlled #4. History of DVT #5. History of GERD/reflux #6. History of prior GI bleeding #7. History of hyperlipidemia #8. History of myocardial infarction #9. History of cardiomyopathy status post AICD placement #10. History of BPH #11. History of tobacco use rule out COPD Plan: patient is clinically improving off the BiPAP support Continue with diuretics per cardiology recommendations Continue antibiotics and breathing treatments Repeat chest x-ray in the morning Rate control medications and anticoagulation per cardiology stable for transfer out of intensive care unit to [facility] I performed a history & physical examination of the patient and discussed their management with my nurse practitioner, Radha Nunes. I reviewed the nurse practitioner's note and agree with the documented findings and plan of care. Lung sounds are positive for diminished breath sounds. The findings and the impression was discussed with the patient. I attest to the documentation by the nurse practitioner. Time with Patient: Less than 30
--- NOTE | 2021-03-18 10:36 | P.PN ---
Subjective Patient is seen in follow-up for acute kidney injury. Creatinine 2.05 today. Nonoliguric. Maintained on IV Lasix. Currently sitting up in chair. He is on nasal cannula. Did have a loose bowel movement this morning. No vomiting. Vital signs are stable. General: The patient appeared well nourished and normally developed. HEENT: Head exam is unremarkable. On nasal cannula. LUNGS: Breath sounds decreased. HEART: Rate and Rhythm are regular. ABDOMEN: Soft, no distention. EXTREMITITES: No edema. Objective - Vital Signs Vital signs: Vital Signs Temp 98.3 F 03/18/21 08:00 Pulse 90 03/18/21 08:00 Resp 22 03/18/21 08:00 BP 110/74 03/18/21 08:00 Pulse Ox 92 L 03/18/21 08:00 Intake & Output 03/17/21 03/18/21 03/18/21 18:59 06:59 18:59 Intake Total 768.3 1186.108 360 Output Total 660 520 105 Balance 108.3 666.108 255 Weight 88.9 kg 92.1 kg Intake: IV 693.3 340 120 Amiodarone 360 mg In 33.3 Dextrose 5% in Water 200 ml @ 1 MG/MIN 33.333 mls/ hr IV .Q6H [facility] Rx#: [id number] Piperacillin-Tazobactam 3 200 100 100 .375 gm In Sodium Chloride 0.9% 100 ml @ 25 mls/hr IVPB Q8HR [facility] Rx# :[id number] Sodium Chloride 0.9% 1, 260 000 ml @ 130 mls/hr IV . Q7H42M [facility] Rx#:[id number] Sodium Chloride 0.9% 1, 200 240 20 000 ml @ 20 mls/hr IV . Q24H [facility] Rx#:[id number] Intake, IV Titration 346.108 Amount Amiodarone 360 mg In 346.108 Dextrose 5% in Water 200 ml @ 1 MG/MIN 33.333 mls/ hr IV .Q6H [facility] Rx#: [id number] Oral 75 500 240 Output: Urine 660 520 105 Other: Voiding Method Indwelling Catheter Indwelling Catheter Indwelling Catheter # Bowel Movements 1 - Labs CBC & Chem 7: 03/18/21 04:05 03/18/21 04:05 Labs: Abnormal Lab Results - Last 24 Hours (Table) 03/17/21 03/18/21 03/18/21 Range/Units 03:42 04:05 04:05 RBC 3.05 L (4.30-5.90) m/uL Hgb 9.3 L (13.0-17.5) gm/dL Hct 29.9 L (39.0-53.0) % RDW 15.8 H (11.5-15.5) % BUN 44 H (9-20) mg/dL Creatinine 2.05 H (0.66-1.25) mg/dL Glucose 100 H (74-99) mg/dL AST 1039 H (17-59) U/L ALT 701 H (4-49) U/L Total Protein 5.7 L (6.3-8.2) g/dL Albumin 2.8 L (3.5-5.0) g/dL Procalcitonin 1.14 H (0.02-0.09) ng/mL Microbiology - Last 24 Hours (Table) 03/16/21 15:42 Blood Culture - Preliminary Blood No Growth after 24 hours 03/16/21 15:27 Blood Culture - Preliminary Blood No Growth after 24 hours Assessment and Plan Plan: Assessment: 1. Acute kidney injury secondary to ATN secondary to hypotension and cardiorenal syndrome. Creatinine was 1.13 on admission and is 2.02 today. Renal ultrasound from November revealed no evidence of hydronephrosis. 2. Acute on chronic systolic CHF with ejection fraction of 30-35% with moderate mitral and tricuspid regurgitation. 3. Pulmonary hypertension. 4. Acute hypoxia respiratory failure. 5. Volume overload. 6. Ventricular tachycardia maintain on amiodarone. Cardiology following. 7. Hypomagnesemia from poor intake and diuresis. Replaced. Plan: Maintain IV Lasix. Continue to monitor renal function and urine output. Avoid nephrotoxins. Continue to assess daily for potential need for renal placement therapy.
--- NOTE | 2021-03-18 14:14 | P.PN ---
Progress Note - Text Progress Note Date: 03/18/21 Chief Complaint: Short of breath History of presenting complaint: 81-year-old patient who follows with visiting physicians Dr. Wall. Chronic stable medical conditions include atrial fibrillation, , GERD, hyperlipidemia, coronary artery disease, cardiomyopathy, AICD, BPH. Patient lives with his daughter Brie. Normally uses a walker. Was drinking heavily up until July 2020. ex-smoker. Home oxygen-2 L Admitted from January 01 through January 06: with CHF exacerbation, pneumonia. UTI with cystitis. Positive for pseudomonas. Presented to the ER with increasing shortness of breath. Some wheezing. This morning on a BiPAP with a setting of 14/5/40%. Patient had a wide-complex tachycardia. There is a question about being V. tach. Patient was put on IV amiodarone by Dr. Villarreal. Also found to have infiltrates on the chest x-ray started IV antibiotics in the form of IV Zosyn. Currently not able to give much of a history because of BiPAP. Admitted with acute on chronic CHF exacerbation. EF less than 20%. Bilateral pneumonia. Acute hypoxic respiratory failure. Went to the tachycardia. Given IV Lasix. IV Zosyn. BiPAP. IV amiodarone. Admitted to the ICU. March 18: Moved to the medical floor. Sitting up in bed, reclining, looking much better. Nasal cannula. Short of breath. Some cough. Tired. Out of ventricular tachycardia. Was in atrial fibrillation. Back in sinus rhythm. Review of systems: Was done for constitutional, cardiovascular, GI, pulmonary. relevant finding as above Active Medications Acetaminophen (Acetaminophen Tab 500 Mg Tab) 500 mg PO Q6H PRN PRN Reason: Pain Last Admin: 03/18/21 00:01 Dose: 500 mg Documented by: Albuterol/Ipratropium (Ipratropium-Albuterol 3 Ml Neb) 3 ml INHALATION RT-Q4H [facility] Last Admin: 03/18/21 12:15 Dose: 3 ml Documented by: Albuterol/Ipratropium (Ipratropium-Albuterol 3 Ml Neb) 3 ml INHALATION RT-Q4H PRN PRN Reason: Dyspnea Last Admin: 03/16/21 20:28 Dose: 3 ml Documented by: Allopurinol (Allopurinol 100 Mg Tab) 100 mg PO HS [facility] Last Admin: 03/17/21 20:58 Dose: 100 mg Documented by: Amiodarone HCl (Amiodarone 200 Mg Tab) 200 mg PO BID [facility] Last Admin: 03/18/21 08:31 Dose: 200 mg Documented by: Calamine/Phenol (Menthol-Zinc Oxide Oint 113 Gm Tube) 1 applic TOPICAL DAILY [facility]; Protocol Last Admin: 03/18/21 08:31 Dose: 1 applic Documented by: Cyanocobalamin (Cyanocobalamin 500 Mcg Tab) 1,000 mcg PO DAILY [facility] Last Admin: 03/18/21 08:31 Dose: 1,000 mcg Documented by: Escitalopram Oxalate (Escitalopram 10 Mg Tab) 10 mg PO DAILY [facility] Last Admin: 03/18/21 08:31 Dose: 10 mg Documented by: Furosemide (Furosemide 10 Mg/Ml 4 Ml Vial) 40 mg IV BID [facility] Last Admin: 03/18/21 08:30 Dose: 40 mg Documented by: Furosemide (Furosemide 10 Mg/Ml 4 Ml Vial) 40 mg IV ONCE PRN PRN Reason: Difficulty Breathing r/t fluid Piperacillin Sod/Tazobactam (Sod 3.375 gm/ Sodium Chloride) 100 mls @ 25 mls/hr IVPB Q8HR [facility] Stop: 03/24/21 00:01 Last Admin: 03/18/21 08:29 Dose: 25 mls/hr Documented by: Sodium Chloride (Saline 0.9%) 1,000 mls @ 20 mls/hr IV .Q24H [facility] Last Admin: 03/18/21 08:32 Dose: 20 mls/hr Documented by: Levothyroxine Sodium (Levothyroxine 50 Mcg Tab) 50 mcg PO 0630 [facility] Last Admin: 03/18/21 05:57 Dose: 50 mcg Documented by: Metoprolol Tartrate (Metoprolol Tartrate 25 Mg Tab) 25 mg PO BID [facility] Last Admin: 03/18/21 08:31 Dose: 25 mg Documented by: Miscellaneous Information (Pneumonia Protocol Utilized 1 Each Misc) 1 each PO ONCE PRN PRN Reason: Per Protocol Naloxone HCl (Naloxone 0.4 Mg/Ml 1 Ml Vial) 0.2 mg IV Q2M PRN PRN Reason: Opioid Reversal Pantoprazole Sodium (Pantoprazole 40 Mg/10 Ml Vial) 40 mg IV DAILY [facility] Last Admin: 03/18/21 08:30 Dose: 40 mg Documented by: Rivaroxaban (Rivaroxaban 15 Mg Tab) 15 mg PO [facility]; Protocol Sildenafil Citrate (Sildenafil 20 Mg Tab) 20 mg PO DAILY [facility] Last Admin: 03/18/21 08:31 Dose: 20 mg Documented by: Spironolactone (Spironolactone 25 Mg Tab) 25 mg PO DAILY [facility] Last Admin: 03/18/21 08:31 Dose: 25 mg Documented by: Tamsulosin HCl (Tamsulosin 0.4 Mg Cap.Er.24h) 0.4 mg PO [facility] Last Admin: 03/17/21 20:57 Dose: 0.4 mg Documented by: Review of systems: Difficult to obtain because of shortness of breath BiPAP Past medical history to include: Atrial fibrillation, CHF EF 30-35%, DVT, GERD, GI bleed, hyperlipidemia, [place], cardiomyopathy, AICD, BPH, gait dysfunction using a walker, depression, moderate mitral regurgitation, moderate to severe tricuspid regurgitation, severe pulmonary hypertension. Home oxygen 2 L Social history: Patient is daughter Brie lives with him. Uses walker. Patient smoked for 57 years. Stopped in 2010. Was drinking heavily up until July 2021. Physical examination: VITAL SIGNS: , 95, 18, 111/59, 95% on 3 L GENERAL: Laying in bed, more awake, some shortness of breath EYES: Pupils equal. Conjunctiva normal. HEENT: External appearance of nose and ears normal, oral cavity: Unable to assess NECK: JVD unable to assess: masses not palpable. HEART: First and second heart sounds are normal; mild edema. LUNGS: Respiratory rate increased; decreased breath sounds ABDOMEN: Soft, nontender, liver spleen not palpable, no masses palpable. PSYCH: Answering questions, appropriately MUSCULAR skeletal: Evidence of OA . INVESTIGATIONS, reviewed in the clinical context: March 18: WBC 8 hemoglobin 9.3 potassium 4 BUN 44 creatinine 2.05 AST 1039 ALT 701 WBC 11.4 hemoglobin 10.2 platelets 216 potassium 4.7 BUN 34 creatinine 1.79 and total bilirubin 1.6 AST 592, ALT 290 procalcitonin 1.14 2-D echocardiogram: Moderate concentric LVH. EF less than 20% right ventricle severely enlarged Admission labs: WBC 9.7 hemoglobin 11.3 platelets 21 potassium 4.6 creatinine 1.13 AST 101 ALT 89 troponin I 0.127 proBNP [id number] TSH 3.9 UA protein 1+. Coronavirus PCR: Not detected Chest x-ray film personally reviewed by me-bilateral infiltrates Previous labs: BUN 33 creatinine 1.4 on December: 2-D echocardiogram: Moderate concentric LVH, EF 30-35%, wall motion abnormality, moderate MR, moderate to severe TR, severe pulmonary hypertension Assessment and plan: -Acute on Chronic congestive heart failure from systolic dysfunction EF less than 20% IV Lasix 40 mg, twice a day - pneumonia suspected gram-negative organism: Improving IV Zosyn -Acute hypoxic respiratory failure from CHF and pneumonia: Improving Initially BiPAP. Currently on 3 L -Chronic medical debility, uses a walker at baseline PTOT - ventricular tachycardia: Resolved IV amiodarone -Paroxysmal atrial fibrillation, currently sinus rhythm -Chronic DVT On xarelto -GERD Continue with Protonix -Hyperlipidemia Continue with Lipitor - Acute COPD exacerbation in a previous smoker-improving *Nebulized bronchodilators every 4, , -BPH: Continue with Flomax -Chronic gout Continue with allopurinol -Essential hypertension Lopressor, -Hypothyroid Continue Synthroid -Severe pulmonary hypertension, secondary to COPD and CHF Continue revatio -Moderate mitral and tricuspid regurgitation Follow clinically -Likely acute ischemic hepatitis: Worsening Follow-up LFTs. Hold Lipitor -Acute kidney injury possibly ATN, from infection and possible diagnosis.: Worsening Follow labs. Nephrology consult Moved to the medical floor. On bronchodilators. Oral Cordarone. IV Lasix 40 mg twice a day. Synthroid, Lopressor, IV Zosyn, xarelto, Aldactone. Follow with cardiology and nephrology. Encourage oral intake.
[2021-03-18 18:38] LABS: Magnesium 1.8 mg/dL (1.6-2.3); Potassium 3.8 mmol/L (3.5-5.1)
[2021-03-18] MEDS: RIVAROXABAN 15 MG TAB PO SCH (20:42)
[2021-03-18] MEDS: allopurinoL 100 MG TAB PO SCH (20:43)
[2021-03-18] MEDS: TAMSULOSIN 0.4 MG CAP.ER.24H PO SCH (20:43)
[2021-03-19] MEDS: PIPERACILLIN-TAZOBACTAM 3.375 GM in SODIUM CHLORIDE 0.9% 100 ML IVPB SCH ×4 (00:06→23:37)
[2021-03-19] MEDS: IPRATROPIUM-ALBUTEROL 3 ML NEB INHALATION SCH ×5 (03:45→19:10)
[2021-03-19] MEDS: LEVOTHYROXINE 50 MCG TAB PO SCH (07:06)
[2021-03-19 07:54] LABS: HCT 30.9 % (39.0-53.0); HGB 9.5 gm/dL (13.0-17.5); Hypochromasia Moderate; MCH 30.6 pg (25.0-35.0); MCHC 30.8 g/dL (31.0-37.0); MCV 99.2 fL (80.0-100.0); Macrocytosis Slight; Mean Platelet Volume 8.7; Platelet Count 199 k/uL (150-450); RBC 3.12 m/uL (4.30-5.90); RDW 15.9 % (11.5-15.5); WBC 5.8 k/uL (3.8-10.6)
[2021-03-19] MEDS: PANTOPRAZOLE 40 MG/10 ML VIAL IV SCH (08:22)
[2021-03-19] MEDS: SILDENAFIL 20 MG TAB PO SCH (08:23)
[2021-03-19] MEDS: FUROSEMIDE 10 MG/ML 4 ML VIAL IV SCH (08:23)
[2021-03-19] MEDS: AMIODARONE 200 MG TAB PO SCH ×2 (08:23→21:43)
[2021-03-19] MEDS: SPIRONOLACTONE 25 MG TAB PO SCH (08:23)
[2021-03-19] MEDS: METOPROLOL TARTRATE 25 MG TAB PO SCH (08:23)
[2021-03-19] MEDS: CYANOCOBALAMIN 500 MCG TAB PO SCH (08:23)
[2021-03-19] MEDS: ESCITALOPRAM 10 MG TAB PO SCH (08:23)
[2021-03-19] MEDS: MENTHOL-ZINC OXIDE OINT 113 GM TUBE TOPICAL SCH (08:24)
[2021-03-19 08:53] LABS: Albumin 3.1 g/dL (3.5-5.0); Calcium 8.6 mg/dL (8.4-10.2); Potassium 3.6 mmol/L (3.5-5.1)
--- NOTE | 2021-03-19 09:49 | P.CNOR ---
<DennyjohnsonLuana Gabrielle - Last Filed: 03/19/21 09:49> Past Medical History Past Medical History: Atrial Fibrillation, Heart Failure, Deep Vein Thrombosis (DVT), GERD/Reflux, GI Bleed, Hyperlipidemia, Myocardial Infarction (CO), Pneumonia, Prostate Disorder, Syncope Additional Past Medical History / Comment(s): Paroxysmal Afib, cardiac valve disease, cardiomyopathy, recurrent VT with AICD, lower GI bleed, UTIs, urinary retention with IDCs at times but no issues since circumcism, BPH, iron anemia, gout R foot, FALLS, gait dysturbance, epistaxis requiring transfusion in past, DVT L arm Last Myocardial Infarction Date:: 2010 History of Any Multi-Drug Resistant Organisms: None Reported Year Discovered:: 2014 MDRO Source:: stool Past Surgical History: AICD, Cardiac Ablation, Pacemaker Additional Past Surgical History / Comment(s): 2010 dual AICD, bilateral cataract removals/lens tranplants, adult circumcism Past Anesthesia/Blood Transfusion Reactions: No Reported Reaction Additional Past Anesthesia/Blood Transfusion Reaction / Comm: Past blood transfusion without reaction. Type of Cardiac Device: AICD Device Placement Date:: 03/27/2017 Past Psychological History: Depression Additional Psychological History / Comment(s): Pt has his elizabet, Brie residing with him. He states he is up and about with wheeled walker. Elizabet drives and helps manage his medications. Smoking Status: Current every day smoker Past Alcohol Use History: Daily, Heavy Additional Past Alcohol Use History / Comment(s): Pt started smoking in 1954 and quit in 2010. Pt states he was a heavy drinker but quit 08/16/21. per family patient had alcohol in his home and started drinking again on sunday and also begain smoking again Past Drug Use History: None Reported - Past Family History Mother Family Medical History: CVA/TIA, Diabetes Mellitus Additional Family Medical History / Comment(s): Mother had "severe" diabetes and a CVA. Father Family Medical History: CVA/TIA, GI Bleed Additional Family Medical History / Comment(s): Father had a CVA Medications and Allergies Home Medications Medication Instructions Recorded Confirmed Type Cholecalciferol (Vitamin D3) 2,000 mcg PO DAILY 02/13/19 03/16/21 History [Vitamin D3] Cyanocobalamin (Vitamin B-12) 1,000 mcg PO DAILY 02/13/19 03/16/21 History [Vitamin B-12] Metoprolol Tartrate [Lopressor] 50 mg PO BID 02/13/19 03/16/21 History Potassium Chloride [Klor-Con 20] 20 meq PO BID 02/13/19 03/16/21 History Rivaroxaban [Xarelto] 20 mg PO HS 02/13/19 03/16/21 History Tamsulosin [Flomax] 0.4 mg PO HS 02/13/19 03/16/21 History Atorvastatin [Lipitor] 20 mg PO DAILY tab 02/25/20 03/16/21 Rx Escitalopram [Lexapro] 10 mg PO DAILY 08/14/20 03/16/21 History allopurinoL [Zyloprim] 100 mg PO HS 08/14/20 03/16/21 History Pantoprazole Sodium [Protonix] 40 mg PO HS 12/09/20 03/16/21 History Sildenafil [Revatio] 20 mg PO DAILY 12/09/20 03/16/21 History Ipratropium/Albuter 20-100Mcg 1 puff INHALATION RT-QID 01/01/21 03/16/21 History [Combivent Respimat 20-100Mcg Inhaler] Acetaminophen Tab [Tylenol Tab] 500 mg PO Q6H PRN 03/16/21 03/16/21 History Amiodarone [Cordarone] 200 mg PO BID 03/16/21 03/16/21 History Furosemide [Lasix] 40 mg PO DAILY 03/16/21 03/16/21 History Levothyroxine Sodium [Synthroid] 50 mcg PO DAILY 03/16/21 03/16/21 History Menthol/Zinc Oxide [Calmoseptine 1 applic TOPICAL DAILY 03/16/21 03/16/21 History Ointment] Allergies Allergy/AdvReac Type Severity Reaction Status Date / Time bee venom protein (honey bee) Allergy Anaphylaxis Verified 03/16/21 17:43 Results - Labs Labs: Abnormal Lab Results - Last 24 Hours (Table) 03/19/21 03/19/21 Range/Units 07:32 07:32 RBC 3.12 L (4.30-5.90) m/uL Hgb 9.5 L (13.0-17.5) gm/dL Hct 30.9 L (39.0-53.0) % MCHC 30.8 L (31.0-37.0) g/dL RDW 15.9 H (11.5-15.5) % BUN 48 H (9-20) mg/dL Creatinine 1.90 H (0.66-1.25) mg/dL Glucose 119 H (74-99) mg/dL AST 495 H (17-59) U/L ALT 543 H (4-49) U/L Total Protein 6.0 L (6.3-8.2) g/dL Albumin 3.1 L (3.5-5.0) g/dL Microbiology - Last 24 Hours (Table) 03/16/21 15:42 Blood Culture - Preliminary Blood No Growth after 48 hours 03/16/21 15:27 Blood Culture - Preliminary Blood No Growth after 48 hours H & H 03/16/21 03/17/21 03/18/21 Range/Units 15:50 03:42 04:05 Hgb 11.3 L 10.2 L 9.3 L (13.0-17.5) gm/dL Hct 36.4 L 32.9 L 29.9 L (39.0-53.0) % 03/19/21 Range/Units 07:32 Hgb 9.5 L (13.0-17.5) gm/dL Hct 30.9 L (39.0-53.0) % Coagulation 03/16/21 Range/Units 15:50 INR 1.3 H (<1.2) Result Diagrams: 03/19/21 07:32 03/19/21 07:32 <Shannon Talbot - Last Filed: 03/19/21 10:28> History of Present Illness - [facility] Consult date: 03/19/21 Physical Examination Osteopathic Statement: *. No significant issues noted on an osteopathic structural exam other than those noted in the History and Physical/Consult. Results - Labs Labs: Abnormal Lab Results - Last 24 Hours (Table) 03/19/21 03/19/21 Range/Units 07:32 07:32 RBC 3.12 L (4.30-5.90) m/uL Hgb 9.5 L (13.0-17.5) gm/dL Hct 30.9 L (39.0-53.0) % MCHC 30.8 L (31.0-37.0) g/dL RDW 15.9 H (11.5-15.5) % BUN 48 H (9-20) mg/dL Creatinine 1.90 H (0.66-1.25) mg/dL Glucose 119 H (74-99) mg/dL AST 495 H (17-59) U/L ALT 543 H (4-49) U/L Total Protein 6.0 L (6.3-8.2) g/dL Albumin 3.1 L (3.5-5.0) g/dL Microbiology - Last 24 Hours (Table) 03/16/21 15:42 Blood Culture - Preliminary Blood No Growth after 48 hours 03/16/21 15:27 Blood Culture - Preliminary Blood No Growth after 48 hours H & H 03/16/21 03/17/21 03/18/21 Range/Units 15:50 03:42 04:05 Hgb 11.3 L 10.2 L 9.3 L (13.0-17.5) gm/dL Hct 36.4 L 32.9 L 29.9 L (39.0-53.0) % 03/19/21 Range/Units 07:32 Hgb 9.5 L (13.0-17.5) gm/dL Hct 30.9 L (39.0-53.0) % Coagulation 03/16/21 Range/Units 15:50 INR 1.3 H (<1.2) Result Diagrams: 03/19/21 07:32 03/19/21 07:32 Assessment and Plan Plan: The patient was seen and examined at bedside I agree with the dictation per Luana Onofre our physician registered medical assistant. Patient is having some soreness at his left shoulder without any evidence of trauma. His shoulder x-rays are still pending. He has some impingement signs but no crepitus. We are able to see some of his shoulder on prior x-rays of his chest and I do not see any obvious fracture. Regular x-rays of his shoulder still pending. I do not have any plans for surgical intervention at this point. With his blood thinners and his multiple medical issues currently I would not plan any specific intervention. I think that he could have some improvement with gentle range of motion physical therapy and we will order that. He says it loosens up through the day and he had been using a heating pad for his shoulder at home and I think warm compress could be helpful for him as well. From an orthopedic standpoint it is okay for him to be discharged home in terms of his shoulder whenever he stable medicine and he can follow-up as an outpatient.
--- NOTE | 2021-03-19 10:21 | P.PN ---
Subjective Progress Note Date: 03/19/21 Principal diagnosis: This is a 79-year-old male seen in consultation acute kidney injury from cardiorenal syndrome. currently his urine output is 1605 mL, while signs are stable. Creatinine is down somewhat from 2.05 yesterday to 1.9 this morning He does complain of shortness of breath, not significantly improved. Appetite is poor. Yesterday on getting up he was somewhat dizzy but not this morning. No loose stools this morning History of present illness: Patient is a 81-year-old male seen in renal consultation for acute kidney injury. Patient creatinine on admission was 1.13 and is up to 1.79 today. Patient presented to the hospital with shortness of breath. Patient is not a reliable historian. He's currently on BiPAP. Patient's blood pressure on admission was in the systolic 80s and is 106/71 as of this morning. He is not on any vasopressors at this time. He is currently maintained on IV Lasix 40 mg twice daily. Urine output has been about 25 mL an hour. The last few hours. Patient has history of systolic CHF with ejection fraction of 30-35% with moderate mitral and tricuspid regurgitation and severe pulmonary hypertension. I don't see any nonsteroidals and his home medication list. He was also noted to have ventricular tachycardia and is currently maintained on amiodarone drip. Objective - Vital Signs Vital signs: Vital Signs Temp 98.4 F 03/19/21 08:20 Pulse 82 03/19/21 08:29 Resp 20 03/19/21 08:20 BP 109/60 03/19/21 08:20 Pulse Ox 96 03/19/21 08:20 Intake & Output 03/18/21 03/19/21 03/19/21 18:59 06:59 18:59 Intake Total 770 Output Total 655 950 Balance 115 -950 Weight 87.4 kg Intake: IV 120 Piperacillin-Tazobactam 3 100 .375 gm In Sodium Chloride 0.9% 100 ml @ 25 mls/hr IVPB Q8HR [facility] Rx# :[id number] Sodium Chloride 0.9% 1, 20 000 ml @ 20 mls/hr IV . Q24H [facility] Rx#:[id number] Oral 650 Output: Urine 655 950 Other: Voiding Method Indwelling Catheter Indwelling Catheter # Bowel Movements 1 On examination awake alert oriented HEENT exam no JVP neck is supple no facial asymmetry Lungs are significant for bilateral extensive coarse crackles and wheezing with fair air entry bilaterally Heart sounds are unremarkable for any murmur rub gallop Abdomen soft nontender Extremity exam was no edema Neurologically awake alert oriented - Labs CBC & Chem 7: 03/19/21 07:32 03/19/21 07:32 Labs: Abnormal Lab Results - Last 24 Hours (Table) 03/19/21 03/19/21 Range/Units 07:32 07:32 RBC 3.12 L (4.30-5.90) m/uL Hgb 9.5 L (13.0-17.5) gm/dL Hct 30.9 L (39.0-53.0) % MCHC 30.8 L (31.0-37.0) g/dL RDW 15.9 H (11.5-15.5) % BUN 48 H (9-20) mg/dL Creatinine 1.90 H (0.66-1.25) mg/dL Glucose 119 H (74-99) mg/dL AST 495 H (17-59) U/L ALT 543 H (4-49) U/L Total Protein 6.0 L (6.3-8.2) g/dL Albumin 3.1 L (3.5-5.0) g/dL Microbiology - Last 24 Hours (Table) 03/16/21 15:42 Blood Culture - Preliminary Blood No Growth after 48 hours 03/16/21 15:27 Blood Culture - Preliminary Blood No Growth after 48 hours Assessment and Plan Assessment: Assessment: 1. Acute kidney injury secondary to ATN secondary to hypotension and cardiorenal syndrome. Renal ultrasound from November revealed no evidence of hydronephrosis. Creatinine was 1.13 on admission, peaked at 2.05, and improved to 1.9 this morning. . 2. Acute on chronic systolic CHF with ejection fraction of 30-35% with moderate mitral and tricuspid regurgitation. Subjectively not significantly improved 3. Pulmonary hypertension. 4. Acute hypoxia respiratory failure. 5. Volume overload. Currently on Lasix IV 40 twice a day, Aldactone 25 daily 6. Ventricular tachycardia maintain on amiodarone. Cardiology following. 7. Hypomagnesemia from poor intake and diuresis. Replaced. 8. Anemia hemoglobin is 9.5, rule out an deficiency Plan: Increase Lasix to 80 twice a day Continue to monitor renal function and urine output. Avoid nephrotoxins. Check orthostatic
--- NOTE | 2021-03-19 12:57 | P.PN ---
Subjective Progress Note Date: 03/19/21 Principal diagnosis: dyspnea, hypoxia 81-year-old male, who is admitted to the hospital, on March 16. He came into the emergency room with complaints of shortness of breath. He was brought in by EMS. He apparently is been having difficulty with breathing for some time. The patient is a very poor historian. The patient apparently did not admit to any chest pain or chest pressure. There is no cough, fever, chills, nausea, vomiting, or diarrhea. Currently, the patient is on BiPAP, with settings of 14/5 and 40%. He is receiving amiodarone at 1 mg/m, saline at 130 mL an hour, and a blood gas will be done. The patient has a history of chronic hypoxemic respiratory failure, chronic alcohol abuse, atrial fibrillation, DVT, gastroesophageal reflux disease, gastrointestinal bleed, myocardial infarction, hyperlipidemia, status post AICD placement, and BPH. Laboratory data includes a white count 11.4, hemoglobin 10.2, hematocrit 32.9, and platelet count 216,000. Blood gases show pO2 106, pCO2 46, with a normal pH. Sodium 138, potassium 4.7, chlorides 102, CO2 29, anion gap 7, BUN 34, creatinine 1.79. AST was 592, and ALT was 290. Urine was negative. The patient's troponin level was 0.127 and the N-terminal proBNP was nearly 11,000. The TSH was normal. Chest x-ray in my opinion, shows cardiomegaly, changes of vascular decompensation. Small effusions and fluid in the minor fissure as well. On 03/18/2001 patient seen in follow-up in the intensive care unit, this morning he is on 3 L of oxygen, his pulse ox is 94%, he only for his BiPAP very briefly for a few minutes last night, and then asked for her to be removed, BiPAP settings were 14/5 and FiO2 of 40%. This morning he appears to be in no acute distress, currently on 0.9 normal saline at 20 ML per hour, and amiodarone is currently off. She remains in atrial fibrillation the rate is controlled at 74 BPM, overall he is looking better and feeling better. he is awake and alert, he is answering questions appropriately, breathing comfortably. No complaint of chest pain, no cough, he remains on breathing treatments, and antibiotics in the form of Zosyn. blood culture showed no growth, he is afebrile this morning, T- max in the last 24 hours was 99.9. today's labs have been reviewed, showing white blood cell count of 8, hemoglobin of 9.3, electrolytes within normal limits, B1 is 44, creatinine is 2.05. His repeat proBNP came back at 31,005 100, his pro calcitonin level was elevated at 1.14.today's follow-up chest x-ray shows interval worsening of right mid and lower lung zone airspace disease. There is left basilar pleural parenchymal disease appears to be stable compared to yesterday's exam. On 03/19/2021 patient seen in follow-up on selective care unit, he is awake and alert, in no acute distress, resting in bed, he is on 3 L of oxygen pulse ox is 96%, breathing comfortably, afebrile, did not require BiPAP support last night. Vital signs have been stable, no complaints of worsening dyspnea or cough. His last chest x-ray yesterday showed some mild interval worsening of right lung airspace disease. Patient remains on Zosyn for antibiotic coverage, he also remains on oral Lasix 80 mg twice daily, he is in -835 mL fluid balance, his weight is down by 4.7 kg in the last 24 hours. Renal profile slightly improved on today's labs, nephrology is following. His liver enzymes are improving, his white blood cell count is normal and significantly improved since admission. He seen [facility] for his left shoulder pain, x-ray of the left shoulder is pending. Objective - Vital Signs Vital signs: Vital Signs Temp 98.4 F 03/19/21 08:20 Pulse 82 03/19/21 11:50 Resp 20 03/19/21 08:20 BP 109/60 03/19/21 08:20 Pulse Ox 96 03/19/21 08:20 Intake & Output 03/18/21 03/19/21 03/19/21 18:59 06:59 18:59 Intake Total 770 0 Output Total 655 950 Balance 115 -950 0 Weight 87.4 kg Intake: IV 120 Piperacillin-Tazobactam 3 100 .375 gm In Sodium Chloride 0.9% 100 ml @ 25 mls/hr IVPB Q8HR [facility] Rx# :[id number] Sodium Chloride 0.9% 1, 20 000 ml @ 20 mls/hr IV . Q24H [facility] Rx#:[id number] Oral 650 0 Output: Urine 655 950 Other: Voiding Method Indwelling Catheter Indwelling Catheter Indwelling Catheter # Bowel Movements 1 - Exam GENERAL EXAM: Alert, very pleasant, 81-year-old white male, on 3 L of oxygen and the pulse ox of 94-97% comfortable in no apparent distress. HEAD: Normocephalic/atraumatic. EYES: Normal reaction of pupils, equal size. Conjunctiva pink, sclera white. NOSE: Clear with pink turbinates. THROAT: No erythema or exudates. NECK: No masses, no JVD, no thyroid enlargement, no adenopathy. CHEST: No chest wall deformity. Symmetrical expansion. LUNGS: Equal air entry with no crackles, wheeze, rhonchi or dullness. CVS: Irregular rate and rhythm, normal S1 and S2, no gallops, no murmurs, no rubs ABDOMEN: Soft, nontender. No hepatosplenomegaly, normal bowel sounds, no guarding or rigidity. EXTREMITIES: No clubbing, no edema, no cyanosis, 2+ pulses and upper and lower extremities. MUSCULOSKELETAL: Muscle strength and tone normal. SPINE: No scoliosis or deformity SKIN: No rashes CENTRAL NERVOUS SYSTEM: Alert and oriented -3. No focal deficits, tone is normal in all 4 extremities. PSYCHIATRIC: Alert and oriented -3. Appropriate affect. Intact judgment and insight. - Labs CBC & Chem 7: 03/19/21 07:32 03/19/21 07:32 Labs: Abnormal Lab Results - Last 24 Hours (Table) 03/19/21 03/19/21 Range/Units 07:32 07:32 RBC 3.12 L (4.30-5.90) m/uL Hgb 9.5 L (13.0-17.5) gm/dL Hct 30.9 L (39.0-53.0) % MCHC 30.8 L (31.0-37.0) g/dL RDW 15.9 H (11.5-15.5) % BUN 48 H (9-20) mg/dL Creatinine 1.90 H (0.66-1.25) mg/dL Glucose 119 H (74-99) mg/dL AST 495 H (17-59) U/L ALT 543 H (4-49) U/L Total Protein 6.0 L (6.3-8.2) g/dL Albumin 3.1 L (3.5-5.0) g/dL Microbiology - Last 24 Hours (Table) 03/16/21 15:42 Blood Culture - Preliminary Blood No Growth after 48 hours 03/16/21 15:27 Blood Culture - Preliminary Blood No Growth after 48 hours Assessment and Plan Plan: assessment: #1. Acute hypoxic respiratory failure secondary to acute exacerbation of CHF #2. History of chronic alcohol abuse #3. History of chronic atrial fibrillation with acute rapid ventricular response. Currently better controlled #4. History of DVT #5. History of GERD/reflux #6. History of prior GI bleeding #7. History of hyperlipidemia #8. History of myocardial infarction #9. History of cardiomyopathy status post AICD placement #10. History of BPH #11. History of tobacco use rule out COPD #12. Left shoulder pain, orthopedic surgery is following, x-ray of the left s houlder is pending Plan: Patient is stable from pulmonary perspective He continues on diuretics, antibiotics and breathing treatments Maintaining negative fluid balance Increase activity as tolerated We'll obtain follow-up pro-calcitonin tomorrow Follow-up chest x-ray tomorrow We'll continue to follow I performed a history & physical examination of the patient and discussed their management with my nurse practitioner, Radha Nunes. I reviewed the nurse practitioner's note and agree with the documented findings and plan of care. Lung sounds are positive for diminished breath sounds. The findings and the impression was discussed with the patient. I attest to the documentation by the nurse practitioner. Time with Patient: Less than 30
--- NOTE | 2021-03-19 13:05 | XR ---
EXAMINATION TYPE: XR shoulder complete LT DATE OF EXAM: 03/19/2021 CLINICAL HISTORY: pain COMPARISON: NONE TECHNIQUE: Three views of the left shoulder are obtained. FINDINGS: There is no acute fracture/dislocation evident. The acromioclavicular and glenohumeral clint int spaces appear within normal limits. The visualized ribs are intact and unremarkable. IMPRESSION: 1. There is no acute fracture or dislocation. ICD 10 NO FRACTURE, INITIAL EVALUATION
[2021-03-19] MEDS: ACETAMINOPHEN TAB 500 MG TAB PO PRN (13:38)
--- NOTE | 2021-03-19 14:11 | PN ---
PROGRESS NOTE Mr. Hussein is an 81-year-old male with a history of severe cardiomyopathy status post ICD implantation who presented with progressive dyspnea, has a history of pulmonary hypertension, history of alcohol and tobacco use. He is feeling better today but he continues to be dyspneic. He denies any chest pain. He denies any dizziness. He denies any palpitation. On the monitor he is in atrial fibrillation and having episode of nonsustained ventricular tachycardia. He denies any nausea or vomiting. He continues to be at this time on amiodarone 200 mg twice a day, furosemide 80 mg twice a day, metoprolol tartrate 25 mg twice a day, Xarelto 50 mg daily, Revatio 20 mg daily, spironolactone 25 mg daily. PHYSICAL EXAMINATION: Blood pressure 111/60 with a heart in the 70s. LUNGS with decreased air exchange no wheezes. HEART: Irregular, irregular S1, S2. No S3. No rub. ABDOMEN: Soft, nontender. EXTREMITIES: Trace 1+ edema. LAB DATA: Lab data revealed BUN and creatinine 48 and 1.9, potassium 3.6, hemoglobin of 9.5. IMPRESSION: 1. Severe ischemic cardiomyopathy with symptoms of congestive heart failure. 2. Atrial fibrillation, chronic, persistent, anticoagulated. 3. Nonsustained ventricular tachycardia status post ICD implantation. 4. Chronic kidney disease. 5. Chronic alcohol and tobacco use. RECOMMENDATION: From the cardiac standpoint, I will increase the dose of his beta antoinette, continue to monitor his renal function and depending on his progress further recommendation will be made. MMODL / IJN: [id number] /
--- NOTE | 2021-03-19 14:35 | P.PN ---
Progress Note - Text Progress Note Date: 03/19/21 Chief Complaint: Short of breath History of presenting complaint: 81-year-old patient who follows with visiting physicians Dr. Wall. Chronic stable medical conditions include atrial fibrillation, , GERD, hyperlipidemia, coronary artery disease, cardiomyopathy, AICD, BPH. Patient lives with his daughter Brie. Normally uses a walker. Was drinking heavily up until July 2020. ex-smoker. Home oxygen-2 L Admitted from January 01 through January 06: with CHF exacerbation, pneumonia. UTI with cystitis. Positive for pseudomonas. Presented to the ER with increasing shortness of breath. Some wheezing. This morning on a BiPAP with a setting of 14/5/40%. Patient had a wide-complex tachycardia. There is a question about being V. tach. Patient was put on IV amiodarone by Dr. Villarreal. Also found to have infiltrates on the chest x-ray started IV antibiotics in the form of IV Zosyn. Currently not able to give much of a history because of BiPAP. Admitted with acute on chronic CHF exacerbation. EF less than 20%. Bilateral pneumonia. Acute hypoxic respiratory failure. Went to the tachycardia. Given IV Lasix. IV Zosyn. BiPAP. IV amiodarone. Admitted to the ICU. March 18: Moved to the medical floor. Sitting up in bed, reclining, looking much better. Nasal cannula. Short of breath. Some cough. Tired. Out of ventricular tachycardia. Was in atrial fibrillation. Back in sinus rhythm. March 19: Reclining in bed. Awake. In atrial flutter fibrillation:hovering around 100. Oral intake better. Nasal cannula. Review of systems: Was done for constitutional, cardiovascular, GI, pulmonary. relevant finding as above Active Medications Acetaminophen (Acetaminophen Tab 500 Mg Tab) 500 mg PO Q6H PRN PRN Reason: Pain Last Admin: 03/19/21 13:38 Dose: 500 mg Documented by: Albuterol/Ipratropium (Ipratropium-Albuterol 3 Ml Neb) 3 ml INHALATION RT-Q4H ROBERT Last Admin: 03/19/21 11:40 Dose: 3 ml Documented by: Albuterol/Ipratropium (Ipratropium-Albuterol 3 Ml Neb) 3 ml INHALATION RT-Q4H PRN PRN Reason: Dyspnea Last Admin: 03/16/21 20:28 Dose: 3 ml Documented by: Allopurinol (Allopurinol 100 Mg Tab) 100 mg PO HS [facility] Last Admin: 03/18/21 20:43 Dose: 100 mg Documented by: Amiodarone HCl (Amiodarone 200 Mg Tab) 200 mg PO BID [facility] Last Admin: 03/19/21 08:23 Dose: 200 mg Documented by: Calamine/Phenol (Menthol-Zinc Oxide Oint 113 Gm Tube) 1 applic TOPICAL DAILY [facility]; Protocol Last Admin: 03/19/21 08:24 Dose: Not Given Documented by: Cyanocobalamin (Cyanocobalamin 500 Mcg Tab) 1,000 mcg PO DAILY [facility] Last Admin: 03/19/21 08:23 Dose: 1,000 mcg Documented by: Escitalopram Oxalate (Escitalopram 10 Mg Tab) 10 mg PO DAILY [facility] Last Admin: 03/19/21 08:23 Dose: 10 mg Documented by: Furosemide (Furosemide 40 Mg Tab) 80 mg PO BID@0900,1600 [facility] Piperacillin Sod/Tazobactam (Sod 3.375 gm/ Sodium Chloride) 100 mls @ 25 mls/hr IVPB Q8HR [facility] Stop: 03/24/21 00:01 Last Admin: 03/19/21 08:24 Dose: 25 mls/hr Documented by: Sodium Chloride (Saline 0.9%) 1,000 mls @ 20 mls/hr IV .Q24H [facility] Last Admin: 03/18/21 08:32 Dose: 20 mls/hr Documented by: Levothyroxine Sodium (Levothyroxine 50 Mcg Tab) 50 mcg PO 0630 [facility] Last Admin: 03/19/21 07:06 Dose: 50 mcg Documented by: Metoprolol Tartrate (Metoprolol Tartrate 50 Mg Tab) 50 mg PO BID [facility] Miscellaneous Information (Pneumonia Protocol Utilized 1 Each Misc) 1 each PO ONCE PRN PRN Reason: Per Protocol Naloxone HCl (Naloxone 0.4 Mg/Ml 1 Ml Vial) 0.2 mg IV Q2M PRN PRN Reason: Opioid Reversal Pantoprazole Sodium (Pantoprazole 40 Mg/10 Ml Vial) 40 mg IV DAILY [facility] Last Admin: 03/19/21 08:22 Dose: 40 mg Documented by: Rivaroxaban (Rivaroxaban 15 Mg Tab) 15 mg PO HS [facility]; Protocol Last Admin: 07/23/21 20:42 Dose: 15 mg Documented by: Sildenafil Citrate (Sildenafil 20 Mg Tab) 20 mg PO DAILY [facility] Last Admin: 03/19/21 08:23 Dose: 20 mg Documented by: Spironolactone (Spironolactone 25 Mg Tab) 25 mg PO DAILY [facility] Last Admin: 03/19/21 08:23 Dose: 25 mg Documented by: Tamsulosin HCl (Tamsulosin 0.4 Mg Cap.Er.24h) 0.4 mg PO HS [facility] Last Admin: 03/18/21 20:43 Dose: 0.4 mg Documented by: Review of systems: Difficult to obtain because of shortness of breath BiPAP Past medical history to include: Atrial fibrillation, CHF EF 30-35%, DVT, GERD, GI bleed, hyperlipidemia, GA, cardiomyopathy, AICD, BPH, gait dysfunction using a walker, depression, moderate mitral regurgitation, moderate to severe tricuspid regurgitation, severe pulmonary hypertension. Home oxygen 2 L Social history: Patient is daughter Brie lives with him. Uses walker. Patient smoked for 57 years. Stopped in 2010. Did drink heavily previously Physical examination: VITAL SIGNS: 98.2, 78, 18, 111/64, 94% on 3 L GENERAL: Reclining in bed, awake, more comfortable EYES: Pupils equal. Conjunctiva normal. HEENT: External appearance of nose and ears normal, oral cavity: Unable to assess NECK: JVD unable to assess: masses not palpable. HEART: First and second heart sounds are normal; mild edema. LUNGS: Respiratory rate increased; decreased breath sounds ABDOMEN: Soft, nontender, liver spleen not palpable, no masses palpable. PSYCH: Answering questions, appropriately MUSCULAR skeletal: Evidence of OA . INVESTIGATIONS, reviewed in the clinical context: March 19,: WBC 5.8 hemoglobin 9.5 potassium 3.6 BUN 48 creatinine 1.9 AST 495 AST 543 March 18: WBC 8 hemoglobin 9.3 potassium 4 BUN 44 creatinine 2.05 AST 1039 ALT 701 WBC 11.4 hemoglobin 10.2 platelets 216 potassium 4.7 BUN 34 creatinine 1.79 and total bilirubin 1.6 AST 592, ALT 290 procalcitonin 1.14 2-D echocardiogram: Moderate concentric LVH. EF less than 20% right ventricle severely enlarged Admission labs: WBC 9.7 hemoglobin 11.3 platelets 21 potassium 4.6 creatinine 1.13 AST 101 ALT 89 troponin I 0.127 proBNP 31630 TSH 3.9 UA protein 1+. Coronavirus PCR: Not detected Chest x-ray film personally reviewed by me-bilateral infiltrates Previous labs: BUN 33 creatinine 1.4 on December: 2-D echocardiogram: Moderate concentric LVH, EF 30-35%, wall motion abnormality, moderate MR, moderate to severe TR, severe pulmonary hypertension Assessment and plan: -Acute on Chronic congestive heart failure from systolic dysfunction EF less than 20%: Better IV Lasix 40 mg, twice a day-changed to by mouth Lasix - pneumonia suspected gram-negative organism: Improving IV Zosyn -Acute hypoxic respiratory failure from CHF and pneumonia: Improving Initially BiPAP. Currently on 3 L -Chronic medical debility, uses a walker at baseline PTOT - ventricular tachycardia: Resolved IV amiodarone-changed to by mouth amiodarone 200 mg twice a day -Persistent atrial fibrillation On amiodarone, Lopressor, xarelto -Chronic DVT On xarelto -GERD Continue with Protonix -Hyperlipidemia Continue with Lipitor - Acute COPD exacerbation in a previous smoker-improving *Nebulized bronchodilators 4 times a day -BPH: Continue with Flomax -Chronic gout Continue with allopurinol -Essential hypertension Lopressor, -Hypothyroid Continue Synthroid -Severe pulmonary hypertension, secondary to COPD and CHF Continue revatio -Moderate mitral and tricuspid regurgitation Follow clinically -Likely acute ischemic hepatitis: Started to improve Follow-up LFTs. Hold Lipitor -Acute kidney injury possibly ATN, from infection and possible diagnosis.: Renal function stabilized Follow labs. Nephrology consult Lasix changed to by mouth. Repeat LFTs. Increase activity. IV Zosyn. Repeat procalcitonin
--- NOTE | 2021-03-19 15:52 | XR ---
EXAMINATION TYPE: XR chest 1V portable DATE OF EXAM: 03/19/2021 COMPARISON: Yesterday HISTORY: Short of breath TECHNIQUE: Single view FINDINGS: Heart is enlarged. There is pulmonary vascular congestion. There is some atelectasis and in filtrate left lung base. There is left axillary pacemaker. IMPRESSION: There is improvement in the congestive heart failure compared to yesterday. There is some atelectasis left lung base and infiltrate without change.
[2021-03-19] MEDS: FUROSEMIDE 40 MG TAB PO SCH (16:17)
[2021-03-19] MEDS: SODIUM CHLORIDE 0.9% 1,000 ML IV SCH (18:46)
[2021-03-19] MEDS: allopurinoL 100 MG TAB PO SCH (21:43)
[2021-03-19] MEDS: METOPROLOL TARTRATE 50 MG TAB PO SCH (21:43)
[2021-03-19] MEDS: TAMSULOSIN 0.4 MG CAP.ER.24H PO SCH (21:43)
[2021-03-19] MEDS: RIVAROXABAN 15 MG TAB PO SCH (21:43)
[2021-03-19] MEDS: FAMOTIDINE 20 MG TAB PO SCH (21:43)
[2021-03-20 03:01] LABS: Glucose,Whole Blood 142 mg/dL (75-99)
[2021-03-20] MEDS: LEVOTHYROXINE 50 MCG TAB PO SCH (06:30)
[2021-03-20 08:05] LABS: Albumin 3.1 g/dL (3.5-5.0); Calcium 8.6 mg/dL (8.4-10.2); Potassium 3.4 mmol/L (3.5-5.1); Total Bilirubin 1.2 mg/dL (0.2-1.3)
[2021-03-20] MEDS: METOPROLOL TARTRATE 50 MG TAB PO SCH ×2 (08:53→21:43)
[2021-03-20] MEDS: IPRATROPIUM-ALBUTEROL 3 ML NEB INHALATION SCH ×4 (08:53→20:06)
[2021-03-20] MEDS: ESCITALOPRAM 10 MG TAB PO SCH (08:53)
[2021-03-20] MEDS: AMIODARONE 200 MG TAB PO SCH ×3 (08:53→21:43)
[2021-03-20] MEDS: SILDENAFIL 20 MG TAB PO SCH ×3 (08:54→23:43)
[2021-03-20] MEDS: SPIRONOLACTONE 25 MG TAB PO SCH (08:54)
[2021-03-20] MEDS: CYANOCOBALAMIN 500 MCG TAB PO SCH (08:54)
[2021-03-20] MEDS: FUROSEMIDE 40 MG TAB PO SCH ×2 (08:54→16:10)
[2021-03-20] MEDS: PIPERACILLIN-TAZOBACTAM 3.375 GM in SODIUM CHLORIDE 0.9% 100 ML IVPB SCH (08:55)
[2021-03-20] MEDS: MENTHOL-ZINC OXIDE OINT 113 GM TUBE TOPICAL SCH (08:56)
--- NOTE | 2021-03-20 12:18 | P.PN ---
Subjective Progress Note Date: 03/20/21 Principal diagnosis: Pneumonia, CHF. 81-year-old male, who is admitted to the hospital, on March 16. He came into the emergency room with complaints of shortness of breath. He was brought in by EMS. He apparently is been having difficulty with breathing for some time. The patient is a very poor historian. The patient apparently did not admit to any chest pain or chest pressure. There is no cough, fever, chills, nausea, vomiting, or diarrhea. Currently, the patient is on BiPAP, with settings of 14/5 and 40%. He is receiving amiodarone at 1 mg/m, saline at 130 mL an hour, and a blood gas will be done. The patient has a history of chronic hypoxemic respiratory failure, chronic alcohol abuse, atrial fibrillation, DVT, gastroesophageal reflux disease, gastrointestinal bleed, myocardial infarction, hyperlipidemia, status post AICD placement, and BPH. Laboratory data includes a white count 11.4, hemoglobin 10.2, hematocrit 32.9, and platelet count 216,000. Blood gases show pO2 106, pCO2 46, with a normal pH. Sodium 138, potassium 4.7, chlorides 102, CO2 29, anion gap 7, BUN 34, creatinine 1.79. AST was 592, and ALT was 290. Urine was negative. The patient's troponin level was 0.127 and the N-terminal proBNP was nearly 11,000. The TSH was normal. Chest x-ray in my opinion, shows cardiomegaly, changes of vascular decompensation. Small effusions and fluid in the minor fissure as well. On 03/18/2001 patient seen in follow-up in the intensive care unit, this morning he is on 3 L of oxygen, his pulse ox is 94%, he only for his BiPAP very briefly for a few minutes last night, and then asked for her to be removed, BiPAP settings were 14/5 and FiO2 of 40%. This morning he appears to be in no acute distress, currently on 0.9 normal saline at 20 ML per hour, and amiodarone is currently off. She remains in atrial fibrillation the rate is controlled at 74 BPM, overall he is looking better and feeling better. he is awake and alert, he is answering questions appropriately, breathing comfortably. No complaint of chest pain, no cough, he remains on breathing treatments, and antibiotics in the form of Zosyn. blood culture showed no growth, he is afebrile this morning, T- max in the last 24 hours was 99.9. today's labs have been reviewed, showing white blood cell count of 8, hemoglobin of 9.3, electrolytes within normal limits, B1 is 44, creatinine is 2.05. His repeat proBNP came back at 31,005 100, his pro calcitonin level was elevated at 1.14.today's follow-up chest x-ray shows interval worsening of right mid and lower lung zone airspace disease. There is left basilar pleural parenchymal disease appears to be stable compared to yesterday's exam. On 03/19/2021 patient seen in follow-up on selective care unit, he is awake and alert, in no acute distress, resting in bed, he is on 3 L of oxygen pulse ox is 96%, breathing comfortably, afebrile, did not require BiPAP support last night. Vital signs have been stable, no complaints of worsening dyspnea or cough. His last chest x-ray yesterday showed some mild interval worsening of right lung airspace disease. Patient remains on Zosyn for antibiotic coverage, he also remains on oral Lasix 80 mg twice daily, he is in -835 mL fluid balance, his weight is down by 4.7 kg in the last 24 hours. Renal profile slightly improved on today's labs, nephrology is following. His liver enzymes are improving, his white blood cell count is normal and significantly improved since admission. He seen [facility] for his left shoulder pain, x-ray of the left shoulder is pending. Progress note dated 03/20/2021. The patient is again seen today in room 376. He is in no acute distress. Only came into the room, the nurses attempt to put an IV in the patient, because he was on IV Zosyn. We discontinue the Zosyn, and start him on Augmentin, 875 mg twice a day. All his microbiologic data have been negative. His vital signs are stable. He did not required BiPAP support. He denies any shortness of breath, or cough. Sodium 140, potassium 3.4, chlorides 101, CO2 29, anion gap is 10, BUN 51, and creatinine 1.72. AST is 246 and ALT is 365, down from 495 and 543, respectively. As mentioned above, all blood cultures are negative. Chest x-ray in my opinion is consistent with fluid overload/CHF, with small bilateral pleural effusions. Clinically, the patient is improved. Objective - Vital Signs Vital signs: Vital Signs Temp 98.3 F 03/20/21 08:50 Pulse 67 03/20/21 12:05 Resp 20 03/20/21 12:05 BP 111/61 03/20/21 12:05 Pulse Ox 94 L 03/20/21 12:05 Intake & Output 03/19/21 03/20/21 03/20/21 18:59 06:59 18:59 Intake Total 358 120 Output Total 850 1275 Balance -492 -1275 120 Weight 87 kg Intake: Oral 358 120 Output: Urine 850 1275 Other: Voiding Method Indwelling Catheter Indwelling Catheter Indwelling Catheter - Exam GENERAL EXAM: Alert, very pleasant, 81-year-old white male, on 3 L of oxygen and the pulse ox of 94% comfortable in no apparent distress. HEAD: Normocephalic/atraumatic. EYES: Normal reaction of pupils, equal size. Conjunctiva pink, sclera white. NOSE: Clear with pink turbinates. THROAT: No erythema or exudates. NECK: No masses, no JVD, no thyroid enlargement, no adenopathy. CHEST: No chest wall deformity. Symmetrical expansion. LUNGS: Bilateral scattered rhonchi. A few bibasilar crackles are noted. No wheezes. Breath sounds equal bilaterally. CVS: Irregular rate and rhythm, normal S1 and S2, no gallops, no murmurs, no rubs. Heart rate 67 bpm. ABDOMEN: Soft, nontender. No hepatosplenomegaly, normal bowel sounds, no guarding or rigidity. EXTREMITIES: No clubbing, no edema, no cyanosis, 2+ pulses and upper and lower extremities. MUSCULOSKELETAL: Muscle strength and tone normal. SPINE: No scoliosis or deformity SKIN: No rashes CENTRAL NERVOUS SYSTEM: Alert and oriented -3. No focal deficits, tone is normal in all 4 extremities. PSYCHIATRIC: Alert and oriented -3. Appropriate affect. Intact judgment and insight. - Labs CBC & Chem 7: 03/19/21 07:32 03/20/21 07:16 Labs: Abnormal Lab Results - Last 24 Hours (Table) 03/19/21 03/20/21 03/20/21 Range/Units 07:32 02:59 07:16 Potassium 3.4 L (3.5-5.1) mmol/L BUN 51 H (9-20) mg/dL Creatinine 1.72 H (0.66-1.25) mg/dL Glucose 132 H (74-99) mg/dL POC Glucose (mg/dL) 142 H (75-99) mg/dL AST 246 H (17-59) U/L ALT 365 H (4-49) U/L Total Protein 6.0 L (6.3-8.2) g/dL Albumin 3.1 L (3.5-5.0) g/dL Procalcitonin 0.63 H (0.02-0.09) ng/mL Microbiology - Last 24 Hours (Table) 03/16/21 15:42 Blood Culture - Preliminary Blood No Growth after 72 hours 03/16/21 15:27 Blood Culture - Preliminary Blood No Growth after 72 hours Assessment and Plan Assessment: Acute hypoxemic respiratory failure likely secondary to congestive heart failure. History of chronic alcohol abuse. History of chronic atrial fibrillation, with acute rapid ventricular response. History of deep venous thrombosis. History of gastroesophageal reflux disease. Prior history of GI bleed. History of hyperlipidemia. History of myocardial infarction. History of status post AICD placement. History of BPH. History of tobacco use, rule out COPD. Plan: Plan dated 03/17/2021. A blood gas was obtained. Interestingly, the blood gas looks pretty good on BiPAP. The patient remains on amiodarone at 1 mg/m and saline at 130 mL an hour. Because of the appearance of the chest x-ray in the elevated N-terminal proBNP, the fluids will be cut back. Additional recommendations and suggestions are forthcoming. If not or ready done, a pro-calcitonin level be ordered. We will continue to follow. Prognosis is guarded. Additional recommendations and suggestions are forthcoming. Plan dated 03/20/2021. The patient is stable on the pulmonary standpoint. Today we discontinue his Zosyn. We start him on Augmentin 875 twice a day. He should continue on diuretics for his fluid overload. Clinically, his breathing is improved. He is on 3 L nasal cannula. No additional recommendations are made. We will continue to follow. Prognosis is guarded. Pro-calcitonin level is 0.63. Time with Patient: Less than 30
--- NOTE | 2021-03-20 12:22 | P.PN ---
Subjective Progress Note Date: 03/20/21 Principal diagnosis: This is a 79-year-old male seen in consultation acute kidney injury from cardiorenal syndrome. currently his urine output is 1605 mL, while signs are stable. Creatinine is down somewhat from 2.05 yesterday to 1.9 this morning He does complain of shortness of breath, which has improved slightly. His appetite is poor and he has cough in the morning. His urine output is 21 25 mL, he remains profoundly weak Creatinine has improved, vital signs are stable History of present illness: Patient is a 81-year-old male seen in renal consultation for acute kidney injury. Patient creatinine on admission was 1.13 and is up to 1.79 today. Patient presented to the hospital with shortness of breath. Patient is not a reliable historian. He's currently on BiPAP. Patient's blood pressure on admission was in the systolic 80s and is 106/71 as of this morning. He is not on any vasopressors at this time. He is currently maintained on IV Lasix 40 mg twice daily. Urine output has been about 25 mL an hour. The last few hours. Patient has history of systolic CHF with ejection fraction of 30-35% with moderate mitral and tricuspid regurgitation and severe pulmonary hypertension. I don't see any nonsteroidals and his home medication list. He was also noted to have ventricular tachycardia and is currently maintained on amiodarone drip. Objective - Vital Signs Vital signs: Vital Signs Temp 98.3 F 03/20/21 08:50 Pulse 67 03/20/21 12:05 Resp 20 03/20/21 12:05 BP 111/61 03/20/21 12:05 Pulse Ox 94 L 03/20/21 12:05 Intake & Output 03/19/21 03/20/21 03/20/21 18:59 06:59 18:59 Intake Total 358 120 Output Total 850 1275 Balance -492 -1275 120 Weight 87 kg Intake: Oral 358 120 Output: Urine 850 1275 Other: Voiding Method Indwelling Catheter Indwelling Catheter Indwelling Catheter On examination awake alert but profoundly weak unable to sit up Of help HEENT exam no JVP neck is supple no facial asymmetry Lungs are significant for bilateral fine crackles at bases less than normal entry Heart sounds are unremarkable for any murmur rub gallop Abdomen soft nontender Extremity exam was no edema Neurologically awake alert oriented but profoundly weak - Labs CBC & Chem 7: 03/19/21 07:32 03/20/21 07:16 Labs: Abnormal Lab Results - Last 24 Hours (Table) 03/19/21 03/20/21 03/20/21 Range/Units 07:32 02:59 07:16 Potassium 3.4 L (3.5-5.1) mmol/L BUN 51 H (9-20) mg/dL Creatinine 1.72 H (0.66-1.25) mg/dL Glucose 132 H (74-99) mg/dL POC Glucose (mg/dL) 142 H (75-99) mg/dL AST 246 H (17-59) U/L ALT 365 H (4-49) U/L Total Protein 6.0 L (6.3-8.2) g/dL Albumin 3.1 L (3.5-5.0) g/dL Procalcitonin 0.63 H (0.02-0.09) ng/mL Microbiology - Last 24 Hours (Table) 03/16/21 15:42 Blood Culture - Preliminary Blood No Growth after 72 hours 03/16/21 15:27 Blood Culture - Preliminary Blood No Growth after 72 hours Assessment and Plan Assessment: Assessment: 1. Acute kidney injury secondary to ATN secondary to hypotension and cardiorenal syndrome. Renal ultrasound from November revealed no evidence of hydronephrosis. Creatinine was 1.13 on admission, peaked at 2.05, and improved to 1.9 and further to 1.7 this morning. . 2. Acute on chronic systolic CHF with ejection fraction of 30-35% with moderate mitral and tricuspid regurgitation. Subjectively mildly improved 3. Pulmonary hypertension. 4. Acute hypoxia respiratory failure. 5. Volume overload. Currently on Lasix 80 mg by mouth twice a day, Aldactone 25 daily 6. Ventricular tachycardia maintain on amiodarone. Cardiology following. 7. Hypomagnesemia from poor intake and diuresis. Replaced. 8. Anemia hemoglobin is 9.5, rule out an deficiency Plan: Continue Lasix to 80 twice a day, dose was increased yesterday Continue to monitor renal function and urine output. Avoid nephrotoxins. Check orthostatic
--- NOTE | 2021-03-20 15:11 | XR ---
EXAMINATION TYPE: XR chest 2V DATE OF EXAM: 03/20/2021 COMPARISON: 03/19/2021 HISTORY: 81 years Male. STUDY INDICATION GIVEN: Pneumonia TECHNIQUE: Frontal lateral chest radiographs FINDINGS AND IMPRESSION: Bibasilar opacities with no significant change likely infiltrates and/or atelectasis. Moderate left small right pleural effusions no significant change. No pneumothorax. Enlarged cardiac silhouette with AICD device. Generalized osteopenia with no acute osseous abnormality.
--- NOTE | 2021-03-20 16:24 | PN ---
PROGRESS NOTE Mr. Hussein is an 81-year-old male who has a history of severe cardiomyopathy status post ICD implantation, history of pulmonary hypertension, alcohol and tobacco use, history of atrial fibrillation who presented with symptoms of worsening dyspnea. He is breathing is slightly better today. He still has some episode of nonsustained ventricular tachycardia, asymptomatic. He denies any palpitation. He denies any PND. No orthopnea. No peripheral edema. He is feeling stronger in comparison to before. He continues to be on amiodarone 200 mg twice a day, Lasix 80 mg twice a day, metoprolol tartrate 50 mg twice a day, Xarelto 15 mg daily, Revatio 20 mg daily and spironolactone 25 mg daily. PHYSICAL EXAMINATION: Blood pressure running in the one teens with a heart rate in 60s. HEAD: Normocephalic. EYES: Sclerae anicteric. LUNGS: With decreased air exchange, no wheezes. HEART: Irregular regular. S1-S2, no S3 with systolic murmur. No diastolic murmur. No rub. ABDOMEN: Soft, nontender, positive bowel sounds. EXTREMITIES: No edema. LAB DATA: Lab data revealed BUN and creatinine of 51, 1.72, improved compared to yesterday. Potassium 3.4. His AST is 246 and ALT is 365, improving as well. His procalcitonin is 0.38. IMPRESSION: 1. Episode of nonsustained ventricular tachycardia, asymptomatic, in a patient with known history of severe cardiomyopathy. 2. Severe cardiomyopathy with symptoms of congestive heart failure with systolic dysfunction. 3. History of atrial fibrillation, anticoagulated. 4. Chronic alcohol intake. 5. History of smoking. 6. Prior history of noncompliance. RECOMMENDATION: From the cardiac standpoint, his renal function is improving, so I will continue on the present dose of diuretics. In regard to the ventricular tachycardia, I will increase the dose of the amiodarone to 200 mg 3 times a day, follow his rhythm and his renal function. If his renal function stabilizes, then he may be a candidate to add an SHAYAN inhibitor. Otherwise, hydralazine can be added to his regimen. MMODL / IJN: [id number] /
--- NOTE | 2021-03-20 20:36 | P.PN ---
Progress Note - Text Progress Note Date: 03/20/21 Chief Complaint: Short of breath History of presenting complaint: 81-year-old patient who follows with visiting physicians Dr. Wall. Chronic stable medical conditions include atrial fibrillation, , GERD, hyperlipidemia, coronary artery disease, cardiomyopathy, AICD, BPH. Patient lives with his daughter Brie. Normally uses a walker. Was drinking heavily up until July 2020. ex-smoker. Home oxygen-2 L Admitted from January 01 through January 06: with CHF exacerbation, pneumonia. UTI with cystitis. Positive for pseudomonas. Presented to the ER with increasing shortness of breath. Some wheezing. This morning on a BiPAP with a setting of 14/5/40%. Patient had a wide-complex tachycardia. There is a question about being V. tach. Patient was put on IV amiodarone by Dr. Villarreal. Also found to have infiltrates on the chest x-ray started IV antibiotics in the form of IV Zosyn. Currently not able to give much of a history because of BiPAP. Admitted with acute on chronic CHF exacerbation. EF less than 20%. Bilateral pneumonia. Acute hypoxic respiratory failure. Went to the tachycardia. Given IV Lasix. IV Zosyn. BiPAP. IV amiodarone. Admitted to the ICU. March 18: Moved to the medical floor. Sitting up in bed, reclining, looking much better. Nasal cannula. Short of breath. Some cough. Tired. Out of ventricular tachycardia. Was in atrial fibrillation. Back in sinus rhythm. March 19: Reclining in bed. Awake. In atrial flutter fibrillation:hovering around 100. Oral intake better. Nasal cannula. March 20: Laying rate area and awake. Atrial flutter fibrillation. Some episodes of V. tach. Dose of amiodarone increased by Dr. Villarreal. Review of systems: Was done for constitutional, cardiovascular, GI, pulmonary. relevant finding as above Active Medications Acetaminophen (Acetaminophen Tab 500 Mg Tab) 500 mg PO Q6H PRN PRN Reason: Pain Last Admin: 03/19/21 13:38 Dose: 500 mg Documented by: Albuterol/Ipratropium (Ipratropium-Albuterol 3 Ml Neb) 3 ml INHALATION RT-Q4H PRN PRN Reason: Dyspnea Last Admin: 03/16/21 20:28 Dose: 3 ml Documented by: Albuterol/Ipratropium (Ipratropium-Albuterol 3 Ml Neb) 3 ml INHALATION RT-QID [facility] Last Admin: 03/20/21 20:06 Dose: 3 ml Documented by: Allopurinol (Allopurinol 100 Mg Tab) 100 mg PO HS [facility] Last Admin: 03/19/21 21:43 Dose: 100 mg Documented by: Amiodarone HCl (Amiodarone 200 Mg Tab) 200 mg PO TID [facility] Last Admin: 03/20/21 16:10 Dose: 200 mg Documented by: Amoxicillin/Clavulanate Potassium (Amoxic-Pot Clav 875-125mg 1 Each Tab) 1 each PO Q12HR [facility] Calamine/Phenol (Menthol-Zinc Oxide Oint 113 Gm Tube) 1 applic TOPICAL DAILY [facility]; Protocol Last Admin: 03/20/21 08:56 Dose: Not Given Documented by: Cyanocobalamin (Cyanocobalamin 500 Mcg Tab) 1,000 mcg PO DAILY [facility] Last Admin: 03/20/21 08:54 Dose: 1,000 mcg Documented by: Escitalopram Oxalate (Escitalopram 10 Mg Tab) 10 mg PO DAILY [facility] Last Admin: 03/20/21 08:53 Dose: 10 mg Documented by: Famotidine (Famotidine 20 Mg Tab) 20 mg PO HS [facility] Last Admin: 03/19/21 21:43 Dose: 20 mg Documented by: Furosemide (Furosemide 40 Mg Tab) 80 mg PO BID@0900,1600 [facility] Last Admin: 03/20/21 16:10 Dose: 80 mg Documented by: Sodium Chloride (Saline 0.9%) 1,000 mls @ 20 mls/hr IV .Q24H [facility] Last Admin: 03/19/21 18:46 Dose: Not Given Documented by: Levothyroxine Sodium (Levothyroxine 50 Mcg Tab) 50 mcg PO 0630 [facility] Last Admin: 03/20/21 06:30 Dose: 50 mcg Documented by: Metoprolol Tartrate (Metoprolol Tartrate 50 Mg Tab) 50 mg PO BID [facility] Last Admin: 03/20/21 08:53 Dose: 50 mg Documented by: Miscellaneous Information (Pneumonia Protocol Utilized [facility]) 1 each PO ONCE PRN PRN Reason: Per Protocol Naloxone HCl (Naloxone 0.4 Mg/Ml 1 Ml Vial) 0.2 mg IV Q2M PRN PRN Reason: Opioid Reversal Rivaroxaban (Rivaroxaban 15 Mg Tab) 15 mg PO HS [facility]; Protocol Last Admin: 03/19/21 21:43 Dose: 15 mg Documented by: Sildenafil Citrate (Sildenafil 20 Mg Tab) 20 mg PO TID [facility] Last Admin: 03/20/21 16:10 Dose: 20 mg Documented by: Spironolactone (Spironolactone 25 Mg Tab) 25 mg PO DAILY [facility] Last Admin: 03/20/21 08:54 Dose: 25 mg Documented by: Tamsulosin HCl (Tamsulosin 0.4 Mg Cap.Er.24h) 0.4 mg PO HS [facility] Last Admin: 03/19/21 21:43 Dose: 0.4 mg Documented by: Review of systems: Difficult to obtain because of shortness of breath BiPAP Past medical history to include: Atrial fibrillation, CHF EF 30-35%, DVT, GERD, GI bleed, hyperlipidemia, NM, cardiomyopathy, AICD, BPH, gait dysfunction using a walker, depression, moderate mitral regurgitation, moderate to severe tricuspid regurgitation, severe pulmonary hypertension. Home oxygen 2 L Social history: Patient is daughter Brie lives with him. Uses walker. Patient smoked for 57 years. Stopped in 2010. Did drink heavily previously Physical examination: VITAL SIGNS: 98.5, 70, 20, 119/68, 92% on 3 L GENERAL: Reclining in bed, EYES: Pupils equal. Conjunctiva normal. HEENT: External appearance of nose and ears normal, oral cavity: Unable to assess NECK: JVD unable to assess: masses not palpable. HEART: Heart sounds irregular; mild edema. LUNGS: Respiratory rate increased; decreased breath sounds ABDOMEN: Soft, nontender, liver spleen not palpable, no masses palpable. PSYCH: Answering questions, appropriately MUSCULAR skeletal: Evidence of OA . INVESTIGATIONS, reviewed in the clinical context: March 20: Potassium 3.4 creatinine 1.7 to AST 246 ALT 365 pro-calcitonin 0.38 March 19,: WBC 5.8 hemoglobin 9.5 potassium 3.6 BUN 48 creatinine 1.9 AST 495 AST 543 March 18: WBC 8 hemoglobin 9.3 potassium 4 BUN 44 creatinine 2.05 AST 1039 ALT 701 WBC 11.4 hemoglobin 10.2 platelets 216 potassium 4.7 BUN 34 creatinine 1.79 and total bilirubin 1.6 AST 592, ALT 290 procalcitonin 1.14 2-D echocardiogram: Moderate concentric LVH. EF less than 20% right ventricle severely enlarged Admission labs: WBC 9.7 hemoglobin 11.3 platelets 21 potassium 4.6 creatinine 1.13 AST 101 ALT 89 troponin I 0.127 proBNP 23595 TSH 3.9 UA protein 1+. Coronavirus PCR: Not detected Chest x-ray film personally reviewed by me-bilateral infiltrates Previous labs: BUN 33 creatinine 1.4 on December: 2-D echocardiogram: Moderate concentric LVH, EF 30-35%, wall motion abnormality, moderate MR, moderate to severe TR, severe pulmonary hypertension Assessment and plan: -Acute on Chronic congestive heart failure from systolic dysfunction EF less than 20%: Better IV Lasix 40 mg, twice a day-changed to by mouth Lasix - pneumonia suspected gram-negative organism: Improving IV Zosyn-changed to Augmentin -Acute hypoxic respiratory failure from CHF and pneumonia: Improving Initially BiPAP. Currently on 3 L -Chronic medical debility, uses a walker at baseline PTOT - ventricular tachycardia: Intermittent IV amiodarone-changed to by mouth amiodarone 200 mg thrice a day -Persistent atrial fibrillation On amiodarone, Lopressor, xarelto -Chronic DVT On xarelto -GERD Continue with Protonix -Hyperlipidemia Continue with Lipitor - Acute COPD exacerbation in a previous smoker-improving *Nebulized bronchodilators 4 times a day -BPH: Continue with Flomax -Chronic gout Continue with allopurinol -Essential hypertension Lopressor, -Hypothyroid Continue Synthroid -Severe pulmonary hypertension, secondary to COPD and CHF Continue revatio -Moderate mitral and tricuspid regurgitation Follow clinically -Likely acute ischemic hepatitis: Started to improve Follow-up LFTs. Hold Lipitor -Acute kidney injury possibly ATN, from infection and possible diagnosis.: Renal function slowly improving Creatinine peaked at 2.05. Now 1.7 to Amiodarone increased to 200 mg 3 times a day. IV Zosyn changed to Augmentin. Other medications to continue.
[2021-03-20] MEDS: SODIUM CHLORIDE 0.9% 1,000 ML IV SCH (21:37)
[2021-03-20] MEDS: AMOXIC-POT CLAV 875-125MG 1 EACH TAB PO SCH (21:43)
[2021-03-20] MEDS: allopurinoL 100 MG TAB PO SCH (21:43)
[2021-03-20] MEDS: RIVAROXABAN 15 MG TAB PO SCH (21:43)
[2021-03-20] MEDS: TAMSULOSIN 0.4 MG CAP.ER.24H PO SCH (21:43)
[2021-03-20] MEDS: FAMOTIDINE 20 MG TAB PO SCH (21:43)
--- NOTE | 2021-03-20 23:43 | XR ---
EXAMINATION TYPE: XR chest 1V portable DATE OF EXAM: 03/20/2021 COMPARISON: Today HISTORY: Difficulty breathing TECHNIQUE: Single view FINDINGS: Heart is enlarged. There is pulmonary vascular congestion. There is left axillary pacemaker . There are chest leads. There is some blunting of the costophrenic angles. IMPRESSION: Congestive heart failure with pleural effusions. Pulmonary congestion increased compared to exam this morning.
[2021-03-20] MEDS ORDERED: FUROSEMIDE 10 MG/ML 4 ML VIAL IV STA (23:46)
[2021-03-21] MEDS: LEVOTHYROXINE 50 MCG TAB PO SCH (06:48)
[2021-03-21] MEDS: IPRATROPIUM-ALBUTEROL 3 ML NEB INHALATION SCH ×4 (07:49→22:39)
[2021-03-21 08:14] LABS: Albumin 2.7 g/dL (3.5-5.0); Calcium 8.4 mg/dL (8.4-10.2); Potassium 3.3 mmol/L (3.5-5.1); Total Bilirubin 0.7 mg/dL (0.2-1.3); Total Protein 5.4 g/dL (6.3-8.2)
[2021-03-21] MEDS: SODIUM CHLORIDE 0.9% 1,000 ML IV SCH (09:34)
[2021-03-21] MEDS: METOPROLOL TARTRATE 50 MG TAB PO SCH (09:35)
[2021-03-21] MEDS: AMOXIC-POT CLAV 875-125MG 1 EACH TAB PO SCH ×2 (09:35→20:27)
[2021-03-21] MEDS: FUROSEMIDE 40 MG TAB PO SCH (09:35)
[2021-03-21] MEDS: CYANOCOBALAMIN 500 MCG TAB PO SCH (09:35)
[2021-03-21] MEDS: ESCITALOPRAM 10 MG TAB PO SCH (09:35)
[2021-03-21] MEDS: SPIRONOLACTONE 25 MG TAB PO SCH (09:35)
[2021-03-21] MEDS: AMIODARONE 200 MG TAB PO SCH ×3 (09:35→22:16)
[2021-03-21] MEDS: SILDENAFIL 20 MG TAB PO SCH ×3 (09:36→22:15)
[2021-03-21] MEDS: MENTHOL-ZINC OXIDE OINT 113 GM TUBE TOPICAL SCH (09:37)
[2021-03-21] MEDS: FUROSEMIDE 10 MG/ML 10 ML VIAL IV SCH ×2 (11:24→20:27)
[2021-03-21] MEDS: DOBUTamine DRIP 500 MG in DEXTROSE/WATER 1 250ML.BAG IV SCH (11:49)
--- NOTE | 2021-03-21 11:50 | PN ---
PROGRESS NOTE The patient is seen for followup for acute kidney injury, mostly acute tubular necrosis, secondary to hypotension and cardiorenal syndrome. Serum creatinine is slightly higher today at 2.0 from 1.7 yesterday, however, it has been mostly about 1.7- 2 mg/dL for the last 4 days. Prior creatinine 1.13. The patient is currently maintained on p.o. Lasix 80 mg b.i.d. His blood pressure is on the lower side with systolic around 120-106 mmHg. Patient has an indwelling Salomon catheter, 24 hour urine output about 800 mL. PHYSICAL EXAMINATION: On examination today, blood pressure 106/61, heart rate 66 per minute, he is afebrile. Examination of the heart S1, S2. Examination of the lungs, decreased breath sounds at bases. Abdomen is soft, nontender. Examination of lower extremities shows no evidence of edema. [employer]IVIL [employer]ATION [employer]NEY exam grossly intact. LAB: Show sodium 139, potassium 3.3, chloride 103, CO2 is 31, BUN 64, serum creatinine 2.01. ASSESSMENT: 1. Acute kidney injury secondary to hypotension, cardiorenal syndrome. Serum creatinine slightly worse today, however, we will continue to monitor for now as creatinine has been close to 2 for the last 4 days. Good urine output. 2. Acute on chronic systolic congestive heart failure, EF 30-35% with moderate mitral and tricuspid regurgitation. 3. Volume overload currently improved. 4. Ventricular tachycardia, maintained on amiodarone. 5. Anemia, rule out iron deficiency. Iron profile was ordered. Iron saturation not recently checked, it was checked in 2019. PLAN: Decreased oral Lasix and check iron profile. MMODL / IJN: [id number] /
[2021-03-21] MEDS: hydrALAZINE HCL 10 MG TAB PO SCH ×3 (13:40→23:33)
--- NOTE | 2021-03-21 14:11 | P.PN ---
Subjective Progress Note Date: 03/21/21 Principal diagnosis: dyspnea, hypoxia 81-year-old male, who is admitted to the hospital, on March 16. He came into the emergency room with complaints of shortness of breath. He was brought in by EMS. He apparently is been having difficulty with breathing for some time. The patient is a very poor historian. The patient apparently did not admit to any chest pain or chest pressure. There is no cough, fever, chills, nausea, vomiting, or diarrhea. Currently, the patient is on BiPAP, with settings of 14/5 and 40%. He is receiving amiodarone at 1 mg/m, saline at 130 mL an hour, and a blood gas will be done. The patient has a history of chronic hypoxemic respiratory failure, chronic alcohol abuse, atrial fibrillation, DVT, gastroesophageal reflux disease, gastrointestinal bleed, myocardial infarction, hyperlipidemia, status post AICD placement, and BPH. Laboratory data includes a white count 11.4, hemoglobin 10.2, hematocrit 32.9, and platelet count 216,000. Blood gases show pO2 106, pCO2 46, with a normal pH. Sodium 138, potassium 4.7, chlorides 102, CO2 29, anion gap 7, BUN 34, creatinine 1.79. AST was 592, and ALT was 290. Urine was negative. The patient's troponin level was 0.127 and the N-terminal proBNP was nearly 11,000. The TSH was normal. Chest x-ray in my opinion, shows cardiomegaly, changes of vascular decompensation. Small effusions and fluid in the minor fissure as well. On 03/18/2001 patient seen in follow-up in the intensive care unit, this morning he is on 3 L of oxygen, his pulse ox is 94%, he only for his BiPAP very briefly for a few minutes last night, and then asked for her to be removed, BiPAP settings were 14/5 and FiO2 of 40%. This morning he appears to be in no acute distress, currently on 0.9 normal saline at 20 ML per hour, and amiodarone is currently off. She remains in atrial fibrillation the rate is controlled at 74 BPM, overall he is looking better and feeling better. he is awake and alert, he is answering questions appropriately, breathing comfortably. No complaint of chest pain, no cough, he remains on breathing treatments, and antibiotics in the form of Zosyn. blood culture showed no growth, he is afebrile this morning, T- max in the last 24 hours was 99.9. today's labs have been reviewed, showing white blood cell count of 8, hemoglobin of 9.3, electrolytes within normal limits, B1 is 44, creatinine is 2.05. His repeat proBNP came back at 31,005 100, his pro calcitonin level was elevated at 1.14.today's follow-up chest x-ray shows interval worsening of right mid and lower lung zone airspace disease. There is left basilar pleural parenchymal disease appears to be stable compared to yesterday's exam. On 03/19/2021 patient seen in follow-up on selective care unit, he is awake and alert, in no acute distress, resting in bed, he is on 3 L of oxygen pulse ox is 96%, breathing comfortably, afebrile, did not require BiPAP support last night. Vital signs have been stable, no complaints of worsening dyspnea or cough. His last chest x-ray yesterday showed some mild interval worsening of right lung airspace disease. Patient remains on Zosyn for antibiotic coverage, he also remains on oral Lasix 80 mg twice daily, he is in -835 mL fluid balance, his weight is down by 4.7 kg in the last 24 hours. Renal profile slightly improved on today's labs, nephrology is following. His liver enzymes are improving, his white blood cell count is normal and significantly improved since admission. He seen [facility] for his left shoulder pain, x-ray of the left shoulder is pending. On 03/21/2021 patient seen in follow-up on selective care unit. He is awake and alert, oriented 3, he is currently sitting up in the recliner, does not appear to be in any acute distress, however he does have exertional dyspnea with any little exertion. He is currently on 3 L of oxygen pulse ox of 100%. Afebrile, only occasional cough, no hemoptysis, no chest pain., However his follow-up chest x-ray shows pulmonary vessel congestion, and some blunting of the costophrenic angles consistent with small bilateral pleural effusions. Lung exam reveals diffuse crackles, patient has positive JVD. He has been on Lasix 60 mg every 12 hours, over his diuresis has been suboptimal, and he is only modestly in negative fluid balance, approximately -300 mL over last 24 hours. His weight is has actually trended up since yesterday, and patient is positive 3 kg. Today's labs have been reviewed, his renal function continues to worsen, his BUN today is up to 64, creatinine is 2.01. Potassium is 3.3, this has been replaced per protocol, his pro calcitonin is improving and is down to 0.38 from 0.63. No fever or chills. Blood cultures have shown no growth. He remains on oral Augmentin. He remains on nebulized bronchodilators. Objective - Vital Signs Vital signs: Vital Signs Temp 98.0 F 03/21/21 08:00 Pulse 68 03/21/21 12:02 Resp 16 03/21/21 12:00 BP 104/63 03/21/21 12:00 Pulse Ox 100 03/21/21 12:00 Intake & Output 03/20/21 03/21/21 03/21/21 18:59 06:59 18:59 Intake Total 480 480 Output Total 800 Balance 480 -800 480 Weight 90 kg Intake: Oral 480 480 Output: Urine 800 Other: Voiding Method Indwelling Catheter Indwelling Catheter Indwelling Catheter # Bowel Movements 0 1 - Exam GENERAL EXAM: Alert, very pleasant, 81-year-old white male, on 3 L of oxygen and the pulse ox of 100% comfortable in no apparent distress. HEAD: Normocephalic/atraumatic. EYES: Normal reaction of pupils, equal size. Conjunctiva pink, sclera white. NOSE: Clear with pink turbinates. THROAT: No erythema or exudates. NECK: No masses, no JVD, no thyroid enlargement, no adenopathy. CHEST: No chest wall deformity. Symmetrical expansion. LUNGS: Equal air entry with no crackles, wheeze, rhonchi or dullness. CVS: Irregular rate and rhythm, normal S1 and S2, no gallops, no murmurs, no rubs ABDOMEN: Soft, nontender. No hepatosplenomegaly, normal bowel sounds, no guarding or rigidity. EXTREMITIES: No clubbing, no edema, no cyanosis, 2+ pulses and upper and lower extremities. MUSCULOSKELETAL: Muscle strength and tone normal. SPINE: No scoliosis or deformity SKIN: No rashes CENTRAL NERVOUS SYSTEM: Alert and oriented -3. No focal deficits, tone is normal in all 4 extremities. PSYCHIATRIC: Alert and oriented -3. Appropriate affect. Intact judgment and insight. - Labs CBC & Chem 7: 03/19/21 07:32 03/21/21 07:28 Labs: Abnormal Lab Results - Last 24 Hours (Table) 03/21/21 Range/Units 07:28 Potassium 3.3 L (3.5-5.1) mmol/L Carbon Dioxide 31 H (22-30) mmol/L BUN 64 H (9-20) mg/dL Creatinine 2.01 H (0.66-1.25) mg/dL Glucose 103 H (74-99) mg/dL AST 148 H (17-59) U/L ALT 273 H (4-49) U/L Total Protein 5.4 L (6.3-8.2) g/dL Albumin 2.7 L (3.5-5.0) g/dL Microbiology - Last 24 Hours (Table) 03/16/21 15:42 Blood Culture - Preliminary Blood No Growth after 96 hours 03/16/21 15:27 Blood Culture - Preliminary Blood No Growth after 96 hours Assessment and Plan Plan: assessment: #1. Acute hypoxic respiratory failure secondary to acute exacerbation of CHF, possibility of pneumonia is less likely although not completely excluded. Patient is covered with oral antibiotics in the form of Augmentin. Calcitonin level is improving #2. History of chronic alcohol abuse #3. History of chronic atrial fibrillation with acute rapid ventricular response. Currently better controlled #4. History of DVT #5. History of GERD/reflux #6. History of prior GI bleeding #7. History of hyperlipidemia #8. History of myocardial infarction #9. History of cardiomyopathy status post AICD placement #10. History of BPH #11. History of tobacco use rule out COPD #12. Left shoulder pain, orthopedic surgery is following, x-ray of the left shoulder is pending Plan: Follow-up chest x-ray continues to show pulmonary asked her congestion Discussed case with cardiology, despite the diuretic his chest x-ray is significantly improved, and he is in positive fluid balance. Dobutamine will be started in addition to IV Lasix Pro-calcitonin is improving, continue oral antibiotics Follow-up labs, daily weight, electrolytes and renal profile tomorrow Continue nebulized bronchodilators I performed a history & physical examination of the patient and discussed their management with my nurse practitioner, Radha Nunes. I reviewed the nurse practitioner's note and agree with the documented findings and plan of care. Lung sounds are positive for diminished breath sounds. The findings and the i mpression was discussed with the patient. I attest to the documentation by the nurse practitioner. Time with Patient: Less than 30
--- NOTE | 2021-03-21 14:32 | P.PN ---
Subjective This is a 1-year-old male past medical history cardiomyopathy unclear etiology, AICD placement, chronic nicotine dependence, chronic alcohol intake (usually 1/2 fifth per day), atrial fibrillation, DVT, hyperlipidemia, valvular heart disease moderate tricuspid regurgitation and moderate mitral regurgitation, severe pulmonary hypertension. 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 Cardiology was initially consulted for an arrhythmia. Patient presents emergency department with worsening dyspnea, left arm pain, right back pain. He was placed on BIPAP, admitted to the ICU for further monitoring. He had episodes of non sustained ventricular tachycardia, asymptomatic. He was placed on IV amiodarone drip. Echocardiogram revealed an EF of less than 20%, RV is severely enlarged, LA severely dilated, mild aortic regurgitation, mild mitral regurgitation and mild tricuspid regurgitation, mild pulmonary hypertension with RVSP of 45 mmHg. Previous echocardiogram with an EF 30-35% Patient seen and examined at bedside, up in the bedside chair, no acute distress. He currently denies any chest pain or shortness of breath. Blood pressure 104/63, heart rate 71, afebrile, maintaining oxygen saturations 100% on 3 L nasal cannula. Telemetry reviewed, he is in atrial fibrillation, with controlled rates, does have occasional NSVT runs overnight around 5-10 beats. Chest x-ray revealed pulmonary vascular congestion, bilateral pleural effusions. Laboratory data reviewed sodium 139, potassium 3.3, patient having worsening renal function BUN 64, serum creatinine 2.01, AST 148, ALT 273. GENERAL: In no acute distress. NECK: Supple. +JVD LUNGS: Breath sounds crackles bilaterally. Respiration equal and unlabored. No wheezes, rales or rhonchi. HEART: Irregular rate and rhythm, S1 and S2 heard. S3 with systolic murmur. EXTREMITIES: Normal range of motion, no edema. No clubbing or cyanosis. Peripheral pulses intact. NEURO: alert and oriented x 3. ASSESSMENT: Acute hypoxic respiratory failure secondary to congestive heart failure Acute Kidney Injury, Cardiorenal syndrome Severe pulmonary hypertension Elevated liver enzymes most likely liver congestion Acute systolic heart failure with reduced EF Non sustained ventricular tachycardia History of cardiomyopathy unclear etiology status post AICD placement History of chronic alcohol abuse History of chronic atrial fibrillation on Xarelto History of DVT ETOH abuse Chronic nicotine dependence History of dyslipidemia PLAN: We will hold beta antoinette at this time Start Dobutamine drip 5mcg/kg/min Start IV Lasix 60mg IV BID Start hydralazine 10mg QID Continue anticoagulation Continue amiodarone, sildenafil and spionolactone Nephrology following, appreciate recs Pulmonary following, appreciate recs Further recommendations based on clinical course Objective - Vital Signs Vital signs: Vital Signs Temp 98.0 F 03/21/21 08:00 Pulse 68 03/21/21 12:02 Resp 16 03/21/21 12:00 BP 104/63 03/21/21 12:00 Pulse Ox 100 03/21/21 12:00 Intake & Output 03/20/21 03/21/21 03/21/21 18:59 06:59 18:59 Intake Total 480 480 Output Total 800 Balance 480 -800 480 Weight 90 kg Intake: Oral 480 480 Output: Urine 800 Other: Voiding Method Indwelling Catheter Indwelling Catheter Indwelling Catheter # Bowel Movements 0 1 - Labs CBC & Chem 7: 03/19/21 07:32 03/21/21 07:28 Labs: Abnormal Lab Results - Last 24 Hours (Table) 03/21/21 Range/Units 07:28 Potassium 3.3 L (3.5-5.1) mmol/L Carbon Dioxide 31 H (22-30) mmol/L BUN 64 H (9-20) mg/dL Creatinine 2.01 H (0.66-1.25) mg/dL Glucose 103 H (74-99) mg/dL AST 148 H (17-59) U/L ALT 273 H (4-49) U/L Total Protein 5.4 L (6.3-8.2) g/dL Albumin 2.7 L (3.5-5.0) g/dL Microbiology - Last 24 Hours (Table) 03/16/21 15:42 Blood Culture - Preliminary Blood No Growth after 96 hours 03/16/21 15:27 Blood Culture - Preliminary Blood No Growth after 96 hours
--- NOTE | 2021-03-21 14:58 | XR ---
EXAMINATION TYPE: XR chest 2V DATE OF EXAM: 03/21/2021 COMPARISON: 03/20/2021 HISTORY: 81-year-old male pneumonia TECHNIQUE: AP and lateral views FINDINGS: Heart remains enlarged. Diffuse interstitial changes. Focal lower lung opacities along with increasin g [id number] effusions. Atherosclerotic arch calcifications. Left anterior chest wall AICD gen erator with right atrial and right ventricular leads. IMPRESSION: Cardiomegaly with continued diffuse interstitial changes with increasing [id number] effusions with adjacent atelectasis and/or consolidation. Correlate for possible CHF as an etiology.
[2021-03-21] MEDS ORDERED: FUROSEMIDE 20 MG TAB PO SCH (16:00)
[2021-03-21] MEDS: TAMSULOSIN 0.4 MG CAP.ER.24H PO SCH (20:27)
[2021-03-21] MEDS: allopurinoL 100 MG TAB PO SCH (20:27)
[2021-03-21] MEDS: RIVAROXABAN 15 MG TAB PO SCH (20:27)
[2021-03-21] MEDS: FAMOTIDINE 20 MG TAB PO SCH (20:27)
--- NOTE | 2021-03-21 22:44 | P.PN ---
Subjective This is a pleasant 81 years old male with multiple medical problems including chronic A. fib, ABUSE, history of DVT and GI bleed, cardiomyopathy status post AICD. Currently is been treated for fluid overload secondary to acute systolic CHF with ejection fraction less than 20% associated with interstitial pneumonia with elevated pro-calcitonin but improving on Augmentin. He is currently kept on Lasix 60 mg IV twice daily, although creatinine slightly worsened up to 2 today however his chest x-ray still showing evidence of CHF. Dobutamine is ordered. Patient also with acute hypoxic respiratory failure, which is mild on 3 L/m of oxygen. Several consultants on the case with the patient financial coordinator, naval inspector and tape stringer. Objective - Vital Signs Vital signs: Vital Signs Temp 98.0 F 03/21/21 08:00 Pulse 68 03/21/21 12:02 Resp 16 03/21/21 12:00 BP 104/63 03/21/21 12:00 Pulse Ox 100 03/21/21 12:00 Intake & Output 03/20/21 03/21/21 03/21/21 18:59 06:59 18:59 Intake Total 480 240 Output Total 800 Balance 480 -800 240 Weight 90 kg Intake: Oral 480 240 Output: Urine 800 Other: Voiding Method Indwelling Catheter Indwelling Catheter Indwelling Catheter # Bowel Movements 0 1 - Exam -GENERAL: The patient is alert and oriented x3, not in any acute distress. Well developed, well nourished. Patient is weak and lethargic HEENT: Pupils are round and equally reacting to light. EOMI. No scleral icterus. No conjunctival pallor. Normocephalic, atraumatic. No pharyngeal erythema. No thyromegaly. CARDIOVASCULAR: S1 and S2 present. No murmurs, rubs, or gallops. -PULMONARY: Chest is clear to auscultation, no wheezing or crackles. Bilateral basal crepitation ABDOMEN: Soft, nontender, nondistended, normoactive bowel sounds. No palpable organomegaly. MUSCULOSKELETAL: No joint swelling or deformity. -EXTREMITIES: No cyanosis, clubbing,. Bilateral leg edema NEUROLOGICAL: Gross neurological examination did not reveal any focal deficits. SKIN: No rashes. no petechiae. - Labs CBC & Chem 7: 03/19/21 07:32 03/21/21 07:28 Labs: Abnormal Lab Results - Last 24 Hours (Table) 03/20/21 03/21/21 Range/Units 07:16 07:28 Potassium 3.3 L (3.5-5.1) mmol/L Carbon Dioxide 31 H (22-30) mmol/L BUN 64 H (9-20) mg/dL Creatinine 2.01 H (0.66-1.25) mg/dL Glucose 103 H (74-99) mg/dL AST 148 H (17-59) U/L ALT 273 H (4-49) U/L Total Protein 5.4 L (6.3-8.2) g/dL Albumin 2.7 L (3.5-5.0) g/dL Procalcitonin 0.38 H (0.02-0.09) ng/mL Microbiology - Last 24 Hours (Table) 03/16/21 15:42 Blood Culture - Preliminary Blood No Growth after 96 hours 03/16/21 15:27 Blood Culture - Preliminary Blood No Growth after 96 hours Assessment and Plan Assessment: Acute and chronic systolic CHF with ejection fraction less than 20%, status post AICD Acute hypoxic respiratory failure Acute kidney injury secondary to cardiorenal syndrome Recent fall Nonsustained ventricular tachycardia Elevated liver enzymes secondary to congested liver improving with Lasix History of DVT Chronic atrial fibrillation and symmetrical. History Of alcohol abuse History Of GI bleed Plan: This is a pleasant 81 years old male who presents with CHF and pneumonia. Continue with Lasix and dobutamine Monitor input and output. Monitored creatinine and electrolytes Check chest x-ray Labs and medication were reviewed.. Continue same treatment. Continue with symptomatic treatment. Resume home medication. Monitor lytes and vitals. DVT and GI prophylaxis. Further recommendationsas per clinical course of the patient DVT prophylaxis: Subcutaneous heparin GI prophylaxis: Pepcid Physical therapy: subacute rehab Prognosis is guarded
[2021-03-22] MEDS: DOBUTamine DRIP 500 MG in DEXTROSE/WATER 1 250ML.BAG IV SCH (06:47)
[2021-03-22] MEDS: LEVOTHYROXINE 50 MCG TAB PO SCH (06:48)
--- NOTE | 2021-03-22 07:13 | XR ---
EXAMINATION TYPE: XR chest 1V DATE OF EXAM: 03/22/2021 COMPARISON: 03/21/2021 HISTORY: SOB, Follow Up FINDINGS: Stable basilar densities may reflect atelectasis or small effusions. Improving pulmonary venous conge stion. Stable appearance of the cardio-mediastinal structures at this time. IMPRESSION: 1. Stable basilar densities may reflect atelectasis or small effusions. Improving pulmonary venous c ongestion.
[2021-03-22] MEDS: IPRATROPIUM-ALBUTEROL 3 ML NEB INHALATION SCH ×4 (08:23→20:10)
[2021-03-22] MEDS: CYANOCOBALAMIN 500 MCG TAB PO SCH (09:03)
[2021-03-22] MEDS: AMOXIC-POT CLAV 875-125MG 1 EACH TAB PO SCH ×2 (09:04→20:18)
[2021-03-22] MEDS: SPIRONOLACTONE 25 MG TAB PO SCH (09:04)
[2021-03-22] MEDS: ESCITALOPRAM 10 MG TAB PO SCH (09:04)
[2021-03-22] MEDS: SILDENAFIL 20 MG TAB PO SCH ×3 (09:04→20:19)
[2021-03-22] MEDS: AMIODARONE 200 MG TAB PO SCH ×3 (09:04→20:19)
[2021-03-22] MEDS: hydrALAZINE HCL 10 MG TAB PO SCH ×4 (09:04→20:19)
[2021-03-22] MEDS: MENTHOL-ZINC OXIDE OINT 113 GM TUBE TOPICAL SCH (09:07)
[2021-03-22] MEDS: SODIUM CHLORIDE 0.9% 1,000 ML IV SCH (09:49)
[2021-03-22] MEDS: FUROSEMIDE 10 MG/ML 10 ML VIAL IV SCH ×2 (09:50→20:19)
[2021-03-22 09:51] LABS: Calcium 8.6 mg/dL (8.4-10.2); Magnesium 1.8 mg/dL (1.6-2.3); Potassium 3.2 mmol/L (3.5-5.1); Total Bilirubin 0.9 mg/dL (0.2-1.3); Total Protein 5.8 g/dL (6.3-8.2)
--- NOTE | 2021-03-22 10:55 | P.PN ---
Subjective Progress Note Date: 03/22/21 81-year-old male, who is admitted to the hospital, on March 16. He came into the emergency room with complaints of shortness of breath. He was brought in by EMS. He apparently is been having difficulty with breathing for some time. The patient is a very poor historian. The patient apparently did not admit to any chest pain or chest pressure. There is no cough, fever, chills, nausea, vomiting, or diarrhea. Currently, the patient is on BiPAP, with settings of 14/5 and 40%. He is receiving amiodarone at 1 mg/m, saline at 130 mL an hour, and a blood gas will be done. The patient has a history of chronic hypoxemic respiratory failure, chronic alcohol abuse, atrial fibrillation, DVT, gastroesop hageal reflux disease, gastrointestinal bleed, myocardial infarction, hyperlipidemia, status post AICD placement, and BPH. Laboratory data includes a white count 11.4, hemoglobin 10.2, hematocrit 32.9, and platelet count 216,000. Blood gases show pO2 106, pCO2 46, with a normal pH. Sodium 138, potassium 4.7, chlorides 102, CO2 29, anion gap 7, BUN 34, creatinine 1.79. AST was 592, and ALT was 290. Urine was negative. The patient's troponin level was 0.127 and the N-terminal proBNP was nearly 11,000. The TSH was normal. Chest x-ray in my opinion, shows cardiomegaly, changes of vascular decompensation. Small effusions and fluid in the minor fissure as well. On 03/18/2001 patient seen in follow-up in the intensive care unit, this morning he is on 3 L of oxygen, his pulse ox is 94%, he only for his BiPAP very briefly for a few minutes last night, and then asked for her to be removed, BiPAP settings were 14/5 and FiO2 of 40%. This morning he appears to be in no acute distress, currently on 0.9 normal saline at 20 ML per hour, and amiodarone is currently off. She remains in atrial fibrillation the rate is controlled at 74 BPM, overall he is looking better and feeling better. he is awake and alert, he is answering questions appropriately, breathing comfortably. No complaint of chest pain, no cough, he remains on breathing treatments, and antibiotics in the form of Zosyn. blood culture showed no growth, he is afebrile this morning, T- max in the last 24 hours was 99.9. today's labs have been reviewed, showing white blood cell count of 8, hemoglobin of 9.3, electrolytes within normal limits, B1 is 44, creatinine is 2.05. His repeat proBNP came back at 31,005 100, his pro calcitonin level was elevated at 1.14.today's follow-up chest x-ray shows interval worsening of right mid and lower lung zone airspace disease. There is left basilar pleural parenchymal disease appears to be stable compared to yesterday's exam. On 03/19/2021 patient seen in follow-up on selective care unit, he is awake and alert, in no acute distress, resting in bed, he is on 3 L of oxygen pulse ox is 96%, breathing comfortably, afebrile, did not require BiPAP support last night. Vital signs have been stable, no complaints of worsening dyspnea or cough. His last chest x-ray yesterday showed some mild interval worsening of right lung airspace disease. Patient remains on Zosyn for antibiotic coverage, he also remains on oral Lasix 80 mg twice daily, he is in -835 mL fluid balance, his weight is down by 4.7 kg in the last 24 hours. Renal profile slightly improved on today's labs, nephrology is following. His liver enzymes are improving, his white blood cell count is normal and significantly improved since admission. He seen [facility] for his left shoulder pain, x-ray of the left shoulder is pending. On 03/21/2021 patient seen in follow-up on selective care unit. He is awake and alert, oriented 3, he is currently sitting up in the recliner, does not appear to be in any acute distress, however he does have exertional dyspnea with any little exertion. He is currently on 3 L of oxygen pulse ox of 100%. Afebrile, only occasional cough, no hemoptysis, no chest pain., However his follow-up chest x-ray shows pulmonary vessel congestion, and some blunting of the costophrenic angles consistent with small bilateral pleural effusions. Lung exam reveals diffuse crackles, patient has positive JVD. He has been on Lasix 60 mg every 12 hours, over his diuresis has been suboptimal, and he is only modestly in negative fluid balance, approximately -300 mL over last 24 hours. His weight is has actually trended up since yesterday, and patient is positive 3 kg. Today's labs have been reviewed, his renal function continues to worsen, his BUN today is up to 64, creatinine is 2.01. Potassium is 3.3, this has been replaced per protocol, his pro calcitonin is improving and is down to 0.38 from 0.63. No fever or chills. Blood cultures have shown no growth. He remains on oral Augmentin. He remains on nebulized bronchodilators. 03/22/2021, the patient is feeling slightly better compared to yesterday. Had discussion with cardiology yesterday. He was having cardiorenal syndrome with an acute kidney injury and insufficiency secondary to diuresis and low cardiac output. He was started on dobutamine initially at 2.5 g and currently is up to 5 mcg/kg per minute. He is also on Lasix 60 mg IV every 24 hours. His weight is gradually improving. Neck veins are less distended. His net fluid balance over the past 24 hours has been -1.7 L of negative fluid balance. In terms of his electrolytes, potassium level is down to 3.2. His BUN is at 68 with a creatinine of 2.1. AST is down to 131, ALT is down to 253, serum pro calcitonin level is at 0.38. He is currently on oxygen at 5 L with a pulse ox of 98%. He remains on oral Augmentin. He is on long-term and to coagulation with Xarelto 15 mg once a day. Hydralazine was also added as an afterload reducing agent at a dose of 10 mg 4 times a day. His blood pressure currently Objective - Vital Signs Vital signs: Vital Signs Temp 97.6 F 03/22/21 08:00 Pulse 66 03/22/21 08:32 Resp 16 03/22/21 08:00 BP 120/56 03/22/21 08:00 Pulse Ox 98 03/22/21 08:00 Intake & Output 03/21/21 03/22/21 03/22/21 18:59 06:59 18:59 Intake Total 480 250 Output Total 700 Balance 480 -450 Weight 88.5 kg Intake: Intake, IV Titration 250 Amount DOBUTamine DRIP 500 mg In 250 Dextrose/Water 1 250ml. bag @ 5 MCG/KG/MIN 13.5 mls/hr IV .[id number] [facility] Rx #:[id number] Oral 480 Output: Urine 700 Other: Voiding Method Indwelling Catheter Indwelling Catheter Indwelling Catheter # Bowel Movements 1 1 - Exam GENERAL EXAM: Alert, very pleasant, 81-year-old white male, on 5 L of oxygen and the pulse ox of 100% comfortable in no apparent distress. HEAD: Normocephalic/atraumatic. EYES: Normal reaction of pupils, equal size. Conjunctiva pink, sclera white. NOSE: Clear with pink turbinates. THROAT: No erythema or exudates. NECK: No masses, positive JVD, no thyroid enlargement, no adenopathy. CHEST: No chest wall deformity. Symmetrical expansion. LUNGS: Equal air entry with no crackles, wheeze, rhonchi or dullness. CVS: Irregular rate and rhythm, normal S1 and S2, no gallops, no murmurs, no rubs ABDOMEN: Soft, nontender. No hepatosplenomegaly, normal bowel sounds, no guarding or rigidity. EXTREMITIES: No clubbing, no edema, no cyanosis, 2+ pulses and upper and lower extremities. MUSCULOSKELETAL: Muscle strength and tone normal. SPINE: No scoliosis or deformity SKIN: No rashes CENTRAL NERVOUS SYSTEM: Alert and oriented -3. No focal deficits, tone is normal in all 4 extremities. PSYCHIATRIC: Alert and oriented -3. Appropriate affect. Intact judgment and insight. - Labs CBC & Chem 7: 03/19/21 07:32 03/22/21 08:35 Labs: Abnormal Lab Results - Last 24 Hours (Table) 03/22/21 Range/Units 08:35 Potassium 3.2 L (3.5-5.1) mmol/L Carbon Dioxide 33 H (22-30) mmol/L BUN 68 H (9-20) mg/dL Creatinine 2.14 H (0.66-1.25) mg/dL Glucose 116 H (74-99) mg/dL AST 131 H (17-59) U/L ALT 253 H (4-49) U/L Total Protein 5.8 L (6.3-8.2) g/dL Albumin 3.0 L (3.5-5.0) g/dL Microbiology - Last 24 Hours (Table) 03/16/21 15:42 Blood Culture - Preliminary Blood No Growth after 120 hours 03/16/21 15:27 Blood Culture - Preliminary Blood No Growth after 120 hours Assessment and Plan Plan: #1. Acute hypoxic respiratory failure secondary to acute exacerbation of CHF, possibility of pneumonia is less likely although not completely excluded. P juany is covered with oral antibiotics in the form of Augmentin. He is currently being diuresed with IV Lasix. The patient is also on dobutamine to augment the cardiac output. He was in considerable amount of congestion heart failure with interstitial edema and secondary hypoxic respiratory failure. Clinically is slightly improved compared to yesterday, still on 3 L of oxygen by nasal cannula. We'll calcitonin level is improving. He states showing improvement in the volume status. There is still persistent cardiomegaly. #2. History of chronic alcohol abuse #3. History of chronic atrial fibrillation with acute rapid ventricular response. Currently better controlled, maintained on long-term anticoagulation with Xarelto. #4. Chronic systolic heart failure and an ejection fraction of 20% and the patient is post AICD placement #5. History of GERD/reflux #6. History of prior GI bleeding #7. History of hyperlipidemia #8. History of myocardial infarction #9. History of cardiomyopathy status post AICD placement #10. History of BPH #11. History of tobacco use rule out COPD #12. Left shoulder pain, orthopedic surgery is following, x-ray of the left shoulder is pending #13 History of DVT Plan: Continue dobutamine at 5 mg/kg/m Continue IV Lasix 60 mg IV every 12 hours Continue hydralazine Replace potassium Monitor renal function Possible cardiac catheterization, per nephrology Clinically slightly better compared to yesterday. We'll continue to follow.
[2021-03-22] MEDS ORDERED: Potassium Replacement Protocol 1 EACH MISC MISCELLANE PRN (11:18)
[2021-03-22] MEDS ORDERED: ALPRAZolam 0.25 MG TAB PO PRN (11:53)
[2021-03-22] MEDS ORDERED: ALPRAZolam 0.5 MG TAB PO PRN (11:53)
[2021-03-22] MEDS ORDERED: NITROGLYCERIN SL TABS 0.4 MG TAB SUBLINGUAL PRN (11:53)
[2021-03-22] MEDS: POTASSIUM CHLORIDE ER 20 MEQ TAB.ER PO SCH ×2 (12:35→13:52)
--- NOTE | 2021-03-22 13:00 | P.PN ---
Subjective This is a pleasant 81 years old male with multiple medical problems including chronic A. fib, ABUSE, history of DVT and GI bleed, cardiomyopathy status post AICD. Currently is been treated for fluid overload secondary to acute systolic CHF with ejection fraction less than 20% associated with interstitial pneumonia with elevated pro-calcitonin but improving on Augmentin. He is currently kept on Lasix 60 mg IV twice daily, although creatinine slightly worsened up to 2 today however his chest x-ray still showing evidence of CHF. Dobutamine is ordered. Patient also with acute hypoxic respiratory failure, which is mild on 3 L/m of oxygen. Several consultants on the case with the manufacturing lab technician, distributor publications and photographic intelligence officer. 03/22/2021 Patient remains short of breath and having breathing difficulty even at rest where he states most of his time in the bed. No chest pain or coughing. He is saturating 100% on 4 L oxygen. A febrile He is stable. Labs showing creatinine at 2.1 dose to yesterday. Liver enzymes trending down, troponin is slightly up to 1.8. Because of this cardiology started the patient on heparin drip and possible ca rdiac cath. His pneumonia is improving while on Augmentin as there is trending down bothcalcitonin he remains on Augmentin, dobutamine drip at 5, Lasix IV 60 mg twice a day. Heparin drip instead of the Xarelto Ejection fraction less than 20% Patient is going to ECF upon discharge Objective - Vital Signs Vital signs: Vital Signs Temp 97.7 F 03/22/21 11:43 Pulse 71 03/22/21 11:43 Resp 25 H 03/22/21 11:43 BP 123/62 03/22/21 11:43 Pulse Ox 100 03/22/21 11:43 Intake & Output 03/21/21 03/22/21 03/22/21 18:59 06:59 18:59 Intake Total 480 250 Output Total 700 Balance 480 -450 Weight 88.5 kg 88.5 kg Intake: Intake, IV Titration 250 Amount DOBUTamine DRIP 500 mg In 250 Dextrose/Water 1 250ml. bag @ 5 MCG/KG/MIN 13.5 mls/hr IV .[id number] [facility] Rx #:[id number] Oral 480 Output: Urine 700 Other: Voiding Method Indwelling Catheter Indwelling Catheter Indwelling Catheter # Bowel Movements 1 1 - Exam -GENERAL: The patient is alert and oriented x3, not in any acute distress. Well developed, well nourished. Patient is weak and lethargic HEENT: Pupils are round and equally reacting to light. EOMI. No scleral icterus. No conjunctival pallor. Normocephalic, atraumatic. No pharyngeal erythema. No thyromegaly. CARDIOVASCULAR: S1 and S2 present. No murmurs, rubs, or gallops. -PULMONARY: Chest is clear to auscultation, no wheezing or crackles. Bilateral basal crepitation ABDOMEN: Soft, nontender, nondistended, normoactive bowel sounds. No palpable organomegaly. MUSCULOSKELETAL: No joint swelling or deformity. -EXTREMITIES: No cyanosis, clubbing,. Bilateral leg edema NEUROLOGICAL: Gross neurological examination did not reveal any focal deficits. SKIN: No rashes. no petechiae. - Labs CBC & Chem 7: 03/19/21 07:32 03/22/21 08:35 Labs: Abnormal Lab Results - Last 24 Hours (Table) 03/22/21 03/22/21 Range/Units 08:35 10:50 Potassium 3.2 L (3.5-5.1) mmol/L Carbon Dioxide 33 H (22-30) mmol/L BUN 68 H (9-20) mg/dL Creatinine 2.14 H (0.66-1.25) mg/dL Glucose 116 H (74-99) mg/dL AST 131 H (17-59) U/L ALT 253 H (4-49) U/L Troponin I 1.820 H* (0.000-0.034) ng/mL Total Protein 5.8 L (6.3-8.2) g/dL Albumin 3.0 L (3.5-5.0) g/dL Microbiology - Last 24 Hours (Table) 03/16/21 15:42 Blood Culture - Preliminary Blood No Growth after 120 hours 03/16/21 15:27 Blood Culture - Preliminary Blood No Growth after 120 hours Assessment and Plan Assessment: Acute and chronic systolic CHF with ejection fraction less than 20%, status post AICD Acute hypoxic respiratory failure Acute kidney injury secondary to cardiorenal syndrome non-STEMI Recent fall Nonsustained ventricular tachycardia Elevated liver enzymes secondary to congested liver improving with Lasix History of DVT Chronic atrial fibrillation and symmetrical. History Of alcohol abuse History Of GI bleed Plan: This is a pleasant 81 years old male who presents with CHF and pneumonia. Continue with Lasix and dobutamine Monitor input and output. Monitored creatinine and electrolytes Continue with heparin drip and anticoagulation per cardiology Labs and medication were reviewed.. Continue same treatment. Continue with symptomatic treatment. Resume home medication. Monitor lytes and vitals. DVT and GI prophylaxis. Further recommendationsas per clinical course of the patient DVT prophylaxis: heparin GI prophylaxis: Pepcid Physical therapy: subacute rehab Prognosis is guarded
--- NOTE | 2021-03-22 13:32 | P.PN ---
Subjective This is a 1-year-old male past medical history cardiomyopathy unclear etiology, AICD placement, chronic nicotine dependence, chronic alcohol intake (usually 1/2 fifth per day), atrial fibrillation, DVT, hyperlipidemia, valvular heart disease moderate tricuspid regurgitation and moderate mitral regurgitation, severe pulmonary hypertension. He does not follow regularly with a weed control inspector. Cardiology was initially consulted for an arrhythmia. Patient also had elevated troponin at 0.12. Patient presents emergency department with worsening dyspnea, left arm pain, right back pain. He was placed on BIPAP, admitted to the ICU for further monitoring. He had episodes of non sustained ventricular tachycardia, asymptomatic. He was placed on IV amiodarone drip. Echocardiogram revealed an EF of less than 20%, RV is severely enlarged, LA severely dilated, mild aortic regurgitation, mild mitral regurgitation and mild tricuspid regurgitation, mild pulmonary hypertension with RVSP of 45 mmHg. Previous echocardiogram with an EF 30-35%. He states that he was admitted at [facility] in [place] in 2010 due to cardiac arrest he was told that he had a weakened heart. He states he did undergo a cardiac catheterization was told that his blockages were not enough to fix. He also had a AICD placed after this. Patient seen and examined at bedside, up in the bedside chair, no acute distress. He currently denies any chest pain or shortness of breath. 03/21 he was having cardiorenal syndrome with renal insufficiency. Started on dobutamine drip and IV Lasix 60mg BID. His renal function is worsening. Blood pressure 120/62, heart rate 71, afebrile, maintaining oxygen saturations 100% on 5 L nasal cannula. Telemetry reviewed, he is in atrial fibrillation, with controlled rates, does have occasional NSVT runs overnight. Chest x-ray this morning revealed stable basilar densities. Improving pulmonary vascular congestion. Laboratory data reviewed sodium 139, potassium 3.2, BUN 68, serum creatinine 2.14, and magnesium 1.8, AST 131, ALT 253 GENERAL: In no acute distress. NECK: Supple. +JVD improving from yesterday LUNGS: Breath sounds crackles bilaterally. Respiration equal and unlabored. No wheezes, rales or rhonchi. HEART: Irregular rate and rhythm, S1 and S2 heard. S3 with systolic murmur. EXTREMITIES: Normal range of motion, no edema. No clubbing or cyanosis. Peripheral pulses intact. NEURO: alert and oriented x 3. ASSESSMENT: Acute hypoxic respiratory failure secondary to congestive heart failure Acute Kidney Injury, Cardiorenal syndrome Severe pulmonary hypertension Elevated liver enzymes most likely liver congestion Acute systolic heart failure with reduced EF Non sustained ventricular tachycardia History of cardiomyopathy unclear etiology status post AICD placement History of chronic alcohol abuse History of chronic atrial fibrillation on Xarelto History of DVT ETOH abuse Chronic nicotine dependence History of dyslipidemia Hypokalemia PLAN: -Repeat troponin and EKG -We Recommend cardiac catheterization, this was discussed with the patient and he is agreeable. I have discussed the risks, benefits and alternative therapies for the above-mentioned procedure and for both sedation/analgesia as well as necessary blood product administration, if indicated, as they pertain to this patient. The patient has indicated understanding and acceptance of the risks and procedures discussed. Questions have been answered appropriately and he is agreeable to move forward with the above-stated procedure. -Plan for Cardiac catheterization with Dr. Villarreal tomorrow 03/23/21 -Hold Xarelto dose tonight -We will continue to hold beta antoinette at this time -Replace potassium -Continue Dobutamine drip 5mcg/kg/min -Continue IV Diuresis IV Lasix 60mg IV BID -Continue hydralazine 10mg QID -Continue amiodarone, sildenafil and spionolactone -Nephrology following, appreciate recs -Pulmonary following, appreciate recs -Further recommendations based on clinical course Objective - Vital Signs Vital signs: Vital Signs Temp 97.7 F 03/22/21 11:43 Pulse 71 03/22/21 11:43 Resp 25 H 03/22/21 11:43 BP 123/62 03/22/21 11:43 Pulse Ox 100 03/22/21 11:43 Intake & Output 03/21/21 03/22/21 03/22/21 18:59 06:59 18:59 Intake Total 480 250 360 Output Total 700 Balance 480 -450 360 Weight 88.5 kg 88.5 kg Intake: IV 120 Sodium Chloride 0.9% 1, 120 000 ml @ 20 mls/hr IV . Q24H [facility] Rx#:[id number] Intake, IV Titration 250 Amount DOBUTamine DRIP 500 mg In 250 Dextrose/Water 1 250ml. bag @ 5 MCG/KG/MIN 13.5 mls/hr IV .[id number] [facility] Rx #:[id number] Oral 480 240 Output: Urine 700 Other: Voiding Method Indwelling Catheter Indwelling Catheter Indwelling Catheter # Bowel Movements 1 1 - Labs CBC & Chem 7: 03/19/21 07:32 03/22/21 08:35 Labs: Abnormal Lab Results - Last 24 Hours (Table) 03/22/21 03/22/21 Range/Units 08:35 10:50 Potassium 3.2 L (3.5-5.1) mmol/L Carbon Dioxide 33 H (22-30) mmol/L BUN 68 H (9-20) mg/dL Creatinine 2.14 H (0.66-1.25) mg/dL Glucose 116 H (74-99) mg/dL AST 131 H (17-59) U/L ALT 253 H (4-49) U/L Troponin I 1.820 H* (0.000-0.034) ng/mL Total Protein 5.8 L (6.3-8.2) g/dL Albumin 3.0 L (3.5-5.0) g/dL Microbiology - Last 24 Hours (Table) 03/16/21 15:42 Blood Culture - Preliminary Blood No Growth after 120 hours 03/16/21 15:27 Blood Culture - Preliminary Blood No Growth after 120 hours
--- NOTE | 2021-03-22 14:07 | PN ---
PROGRESS NOTE Patient is seen for followup for acute kidney injury. His renal function is fairly stable. Serum creatinine staying at about 2 mg/dL. The patient has an indwelling Salomon catheter. He is maintained on IV Lasix 60 mg q.12 hours. He continues to be short of breath. He has also been started on dobutamine. Urine output for 24 hours charted at only about 800 mL. PHYSICAL EXAMINATION: Patient is currently awake, comfortable . He is not in any acute distress. Blood pressure was 123/62, heart rate 71 per minute, he is afebrile. Examination of the heart S1, S2. Examination of the lungs, decreased breath sounds at the bases. Basal crackles are heard. Abdomen is soft, nontender. Examination of lower extremities shows trace edema. [employer] exam grossly intact. LAB: Show sodium 139, potassium 3.2, chloride 100, CO2 33, BUN 68, creatinine 2.1. Troponin 1.8. ASSESSMENT: 1. Acute kidney injury, ATN, stable. Also component of cardiorenal syndrome maintained on dobutamine and IV Lasix. Patient remains volume overloaded. His chest x-ray from yesterday was worse and therefore patient was switched back to IV Lasix. 2. Elevated troponin, being followed by Cardiology. PLAN: Continue with IV Lasix for now. Continue with dobutamine. Can add Zaroxolyn as urine output remains low. MMODL / IJN: [id number] /
[2021-03-22] MEDS: METOPROLOL SUCCINATE (ER) 25 MG TAB.ER.24H PO SCH (18:00)
[2021-03-22] MEDS: allopurinoL 100 MG TAB PO SCH (20:18)
[2021-03-22] MEDS: FAMOTIDINE 20 MG TAB PO SCH (20:19)
[2021-03-22] MEDS: TAMSULOSIN 0.4 MG CAP.ER.24H PO SCH (20:19)
[2021-03-23] MEDS ORDERED: SODIUM CHLORIDE 0.9% 1,000 ML in EMPTY BAG 1 BAG IV ONE
[2021-03-23] MEDS ORDERED: ATORVASTATIN 80 MG TAB PO ONE (05:00)
[2021-03-23] MEDS ORDERED: ASPIRIN 325 MG TAB PO ONE (05:00)
[2021-03-23] MEDS: DOBUTamine DRIP 500 MG in DEXTROSE/WATER 1 250ML.BAG IV SCH (06:37)
[2021-03-23] MEDS: LEVOTHYROXINE 50 MCG TAB PO SCH (06:40)
[2021-03-23] MEDS ORDERED: HEPARIN SODIUM,PORCINE 2,500 UNIT in SODIUM CHLORIDE 0.9% 250 ML IRRIGATION PRN (07:00)
[2021-03-23] MEDS ORDERED: HEPARIN SODIUM,PORCINE 10,000 UNIT in SODIUM CHLORIDE 0.9% 1,000 ML IRRIGATION PRN (07:00)
[2021-03-23] MEDS: IPRATROPIUM-ALBUTEROL 3 ML NEB INHALATION SCH ×4 (07:21→19:48)
[2021-03-23 08:08] LABS: HCT 33.4 % (39.0-53.0); HGB 10.2 gm/dL (13.0-17.5); Hypochromasia Moderate; MCH 30.1 pg (25.0-35.0); MCHC 30.5 g/dL (31.0-37.0); MCV 98.6 fL (80.0-100.0); Macrocytosis Slight; Mean Platelet Volume 9.6; Platelet Count 201 k/uL (150-450); RBC 3.38 m/uL (4.30-5.90); RDW 15.9 % (11.5-15.5); WBC 6.6 k/uL (3.8-10.6)
[2021-03-23] MEDS: CYANOCOBALAMIN 500 MCG TAB PO SCH (08:40)
[2021-03-23] MEDS: MENTHOL-ZINC OXIDE OINT 113 GM TUBE TOPICAL SCH (08:40)
[2021-03-23] MEDS: METOPROLOL SUCCINATE (ER) 25 MG TAB.ER.24H PO SCH (08:40)
[2021-03-23] MEDS: AMIODARONE 200 MG TAB PO SCH ×3 (08:41→20:56)
[2021-03-23] MEDS: ESCITALOPRAM 10 MG TAB PO SCH (08:41)
[2021-03-23] MEDS: hydrALAZINE HCL 10 MG TAB PO SCH ×4 (08:41→20:56)
[2021-03-23] MEDS: SPIRONOLACTONE 25 MG TAB PO SCH (08:41)
[2021-03-23] MEDS: AMOXIC-POT CLAV 875-125MG 1 EACH TAB PO SCH ×2 (08:41→20:56)
[2021-03-23] MEDS: SILDENAFIL 20 MG TAB PO SCH ×3 (08:41→22:05)
[2021-03-23 08:51] LABS: Calcium 8.9 mg/dL (8.4-10.2); Magnesium 1.8 mg/dL (1.6-2.3)
[2021-03-23] MEDS: POTASSIUM CHLORIDE ER 20 MEQ TAB.ER PO SCH ×2 (08:56→12:37)
[2021-03-23] MEDS: SODIUM CHLORIDE 0.9% 1,000 ML IV SCH ×2 (09:02→17:35)
[2021-03-23] MEDS ORDERED: POTASSIUM CHLORIDE ER 20 MEQ TAB.ER PO STA (10:01)
[2021-03-23] MEDS ORDERED: POTASSIUM CHLORIDE 20 MEQ in WATER FOR INJECTION 1 100ML.BAG IVPB STA (10:02)
[2021-03-23] MEDS: FUROSEMIDE 10 MG/ML 10 ML VIAL IV SCH (11:13)
--- NOTE | 2021-03-23 13:14 | P.PN ---
Subjective Progress Note Date: 03/23/21 81-year-old male, who is admitted to the hospital, on March 16. He came into the emergency room with complaints of shortness of breath. He was brought in by EMS. He apparently is been having difficulty with breathing for some time. The patient is a very poor historian. The patient apparently did not admit to any chest pain or chest pressure. There is no cough, fever, chills, nausea, vomiting, or diarrhea. Currently, the patient is on BiPAP, with settings of 14/5 and 40%. He is receiving amiodarone at 1 mg/m, saline at 130 mL an hour, and a blood gas will be done. The patient has a history of chronic hypoxemic respiratory failure, chronic alcohol abuse, atrial fibrillation, DVT, gastroesop hageal reflux disease, gastrointestinal bleed, myocardial infarction, hyperlipidemia, status post AICD placement, and BPH. Laboratory data includes a white count 11.4, hemoglobin 10.2, hematocrit 32.9, and platelet count 216,000. Blood gases show pO2 106, pCO2 46, with a normal pH. Sodium 138, potassium 4.7, chlorides 102, CO2 29, anion gap 7, BUN 34, creatinine 1.79. AST was 592, and ALT was 290. Urine was negative. The patient's troponin level was 0.127 and the N-terminal proBNP was nearly 11,000. The TSH was normal. Chest x-ray in my opinion, shows cardiomegaly, changes of vascular decompensation. Small effusions and fluid in the minor fissure as well. On 03/18/2001 patient seen in follow-up in the intensive care unit, this morning he is on 3 L of oxygen, his pulse ox is 94%, he only for his BiPAP very briefly for a few minutes last night, and then asked for her to be removed, BiPAP settings were 14/5 and FiO2 of 40%. This morning he appears to be in no acute distress, currently on 0.9 normal saline at 20 ML per hour, and amiodarone is currently off. She remains in atrial fibrillation the rate is controlled at 74 BPM, overall he is looking better and feeling better. he is awake and alert, he is answering questions appropriately, breathing comfortably. No complaint of chest pain, no cough, he remains on breathing treatments, and antibiotics in the form of Zosyn. blood culture showed no growth, he is afebrile this morning, T- max in the last 24 hours was 99.9. today's labs have been reviewed, showing white blood cell count of 8, hemoglobin of 9.3, electrolytes within normal limits, B1 is 44, creatinine is 2.05. His repeat proBNP came back at 31,005 100, his pro calcitonin level was elevated at 1.14.today's follow-up chest x-ray shows interval worsening of right mid and lower lung zone airspace disease. There is left basilar pleural parenchymal disease appears to be stable compared to yesterday's exam. On 03/19/2021 patient seen in follow-up on selective care unit, he is awake and alert, in no acute distress, resting in bed, he is on 3 L of oxygen pulse ox is 96%, breathing comfortably, afebrile, did not require BiPAP support last night. Vital signs have been stable, no complaints of worsening dyspnea or cough. His last chest x-ray yesterday showed some mild interval worsening of right lung airspace disease. Patient remains on Zosyn for antibiotic coverage, he also remains on oral Lasix 80 mg twice daily, he is in -835 mL fluid balance, his weight is down by 4.7 kg in the last 24 hours. Renal profile slightly improved on today's labs, nephrology is following. His liver enzymes are improving, his white blood cell count is normal and significantly improved since admission. He seen [facility] for his left shoulder pain, x-ray of the left shoulder is pending. On 03/21/2021 patient seen in follow-up on selective care unit. He is awake and alert, oriented 3, he is currently sitting up in the recliner, does not appear to be in any acute distress, however he does have exertional dyspnea with any little exertion. He is currently on 3 L of oxygen pulse ox of 100%. Afebrile, only occasional cough, no hemoptysis, no chest pain., However his follow-up chest x-ray shows pulmonary vessel congestion, and some blunting of the costophrenic angles consistent with small bilateral pleural effusions. Lung exam reveals diffuse crackles, patient has positive JVD. He has been on Lasix 60 mg every 12 hours, over his diuresis has been suboptimal, and he is only modestly in negative fluid balance, approximately -300 mL over last 24 hours. His weight is has actually trended up since yesterday, and patient is positive 3 kg. Today's labs have been reviewed, his renal function continues to worsen, his BUN today is up to 64, creatinine is 2.01. Potassium is 3.3, this has been replaced per protocol, his pro calcitonin is improving and is down to 0.38 from 0.63. No fever or chills. Blood cultures have shown no growth. He remains on oral Augmentin. He remains on nebulized bronchodilators. 03/22/2021, the patient is feeling slightly better compared to yesterday. Had discussion with cardiology yesterday. He was having cardiorenal syndrome with an acute kidney injury and insufficiency secondary to diuresis and low cardiac output. He was started on dobutamine initially at 2.5 g and currently is up to 5 mcg/kg per minute. He is also on Lasix 60 mg IV every 24 hours. His weight is gradually improving. Neck veins are less distended. His net fluid balance over the past 24 hours has been -1.7 L of negative fluid balance. In terms of his electrolytes, potassium level is down to 3.2. His BUN is at 68 with a creatinine of 2.1. AST is down to 131, ALT is down to 253, serum pro calcitonin level is at 0.38. He is currently on oxygen at 5 L with a pulse ox of 98%. He remains on oral Augmentin. He is on long-term and to coagulation with Xarelto 15 mg once a day. Hydralazine was also added as an afterload reducing agent at a dose of 10 mg 4 times a day. His blood pressure currently 03/23/2021, the patient is still being optimized in terms of his CHF. His being treated for an acute decompensated CHF and acute non-STEMI. The patient remains on dobutamine drip at 5 mg/kg per minute. The patient is also on Lasix 60 mg IV every 24 hours. He is diuresing well. Overall fluid balance has not been accurately reported. Nevertheless, based on the reporting, the patient has produced around 800 mL of urine output over the past 24 hours and this brings into a negative fluid balance. Meanwhile, the patient had a sodium level of 147, potassium level is at 3 that needs to be replaced. His BUN is at 65 with a creatinine of 1.6. Note that his Lasix dose has been drop from twice a day michelle quency to once a day 60 mg IV push. Appointment declined down to 1.3. His white cell count of 6.6. He has no respiratory difficulties at rest. He has positive JVDs. The plan is to ultimately consider cardiac catheterization once this patient's respiratory status and renal failure further optimized. The patient is not utilizing a BiPAP for now. Echocardiac Des showed improvement function with an ejection fraction of less than 20% along with severely dilated RV and pulmonary hypertension with a PA pressure 45 mmHg. Note that this is a drop in his ejection fraction compared to previous echocardiograms. He did have elevated liver function test consistent with CHF. He remains on chronic atrial fibrillation with Xarelto status post AICD placement. Objective - Vital Signs Vital signs: Vital Signs Temp 98.0 F 03/23/21 04:00 Pulse 88 03/23/21 12:29 Resp 17 03/23/21 04:00 BP 135/64 03/23/21 04:00 Pulse Ox 98 03/23/21 04:00 Intake & Output 03/22/21 03/23/21 03/23/21 18:59 06:59 18:59 Intake Total 1850 Output Total 700 Balance 1850 -700 Weight 88.5 kg 88.5 kg Intake: IV 120 Sodium Chloride 0.9% 1, 120 000 ml @ 20 mls/hr IV . Q24H [facility] Rx#:[id number] Oral 1730 Output: Urine 700 Other: Voiding Method Indwelling Catheter Indwelling Catheter # Bowel Movements 1 2 - Exam GENERAL EXAM: Alert, very pleasant, 81-year-old white male, on 5 L of oxygen and the pulse ox of 100% comfortable in no apparent distress. HEAD: Normocephalic/atraumatic. EYES: Normal reaction of pupils, equal size. Conjunctiva pink, sclera white. NOSE: Clear with pink turbinates. THROAT: No erythema or exudates. NECK: No masses, positive JVD, no thyroid enlargement, no adenopathy. CHEST: No chest wall deformity. Symmetrical expansion. LUNGS: Equal air entry with no crackles, wheeze, rhonchi or dullness. CVS: Irregular rate and rhythm, normal S1 and S2, no gallops, no murmurs, no rubs ABDOMEN: Soft, nontender. No hepatosplenomegaly, normal bowel sounds, no guar ding or rigidity. EXTREMITIES: No clubbing, no edema, no cyanosis, 2+ pulses and upper and lower extremities. MUSCULOSKELETAL: Muscle strength and tone normal. SPINE: No scoliosis or deformity SKIN: No rashes CENTRAL NERVOUS SYSTEM: Alert and oriented -3. No focal deficits, tone is normal in all 4 extremities. PSYCHIATRIC: Alert and oriented -3. Appropriate affect. Intact judgment and insight. - Labs CBC & Chem 7: 03/23/21 05:24 03/23/21 05:24 Labs: Abnormal Lab Results - Last 24 Hours (Table) 03/22/21 03/23/21 03/23/21 Range/Units 20:48 05:24 05:24 RBC 3.38 L (4.30-5.90) m/uL Hgb 10.2 L (13.0-17.5) gm/dL Hct 33.4 L (39.0-53.0) % MCHC 30.5 L (31.0-37.0) g/dL RDW 15.9 H (11.5-15.5) % Sodium 147 H (137-145) mmol/L Potassium 3.0 L 3.0 L (3.5-5.1) mmol/L Carbon Dioxide 32 H (22-30) mmol/L BUN 65 H (9-20) mg/dL Creatinine 1.56 H (0.66-1.25) mg/dL Glucose 127 H (74-99) mg/dL Troponin I (0.000-0.034) ng/mL 03/23/21 Range/Units 05:24 RBC (4.30-5.90) m/uL Hgb (13.0-17.5) gm/dL Hct (39.0-53.0) % MCHC (31.0-37.0) g/dL RDW (11.5-15.5) % Sodium (137-145) mmol/L Potassium (3.5-5.1) mmol/L Carbon Dioxide (22-30) mmol/L BUN (9-20) mg/dL Creatinine (0.66-1.25) mg/dL Glucose (74-99) mg/dL Troponin I 1.300 H* (0.000-0.034) ng/mL Microbiology - Last 24 Hours (Table) 03/16/21 15:42 Blood Culture - Final Blood No Growth after 144 hours 03/16/21 15:27 Blood Culture - Final Blood No Growth after 144 hours Assessment and Plan Plan: #1. Acute hypoxic respiratory failure secondary to acute exacerbation of CHF, possibility of pneumonia is less likely although not completely excluded. Patient is covered with oral antibiotics in the form of Augmentin. He is currently being diuresed with IV Lasix. The patient is also on dobutamine to augment the cardiac output. He was in considerable amount of congestion heart failure with interstitial edema and secondary hypoxic respiratory failure. Clinically still improving and the patient is slightly more active and seems to be less short of breath compared to yesterday. He is still being treated with a combination of dobutamine to augment the cardiac output and Lasix. There also might hypernatremia. Renal function continues to improve. #2. History of chronic alcohol abuse #3. History of chronic atrial fibrillation with acute rapid ventricular response. Currently better controlled, maintained on long-term anticoagulation with Xarelto. #4. Chronic systolic heart failure and an ejection fraction of 20% and the patient is post AICD placement #5. History of GERD/reflux #6. History of prior GI bleeding #7. History of hyperlipidemia #8. History of myocardial infarction #9. History of cardiomyopathy status post AICD placement #10. History of BPH #11. History of tobacco use rule out COPD #12. Left shoulder pain, orthopedic surgery is following, x-ray of the left shoulder is pending #13 History of DVT Plan: Continue dobutamine at 5 mg/kg/m Patient has developed some hypernatremia. The reduced dose of Lasix to 60 mg IV 24 hours. Monitor sodium level. Renal function continues to improve. Creatinine is down to 1.6 Continue IV Lasix 60 mg IV every 24 hours Continue hydralazine Replace potassium Monitor sodium level Monitor renal function Possible cardiac catheterization, and this will largely depend on the patient's renal function. The patient is being considered for cardiac catheterization later stage was renal function is normalized. For that reason, Xarelto has been placed on hold. Continue amiodarone, sildenafil and Aldactone Clinically slightly better compared to yesterday. We'll continue to follow.
--- NOTE | 2021-03-23 13:45 | P.PN ---
Subjective This is a pleasant 81 years old male with multiple medical problems including chronic A. fib, ABUSE, history of DVT and GI bleed, cardiomyopathy status post AICD. Currently is been treated for fluid overload secondary to acute systolic CHF with ejection fraction less than 20% associated with interstitial pneumonia with elevated pro-calcitonin but improving on Augmentin. He is currently kept on Lasix 60 mg IV twice daily, although creatinine slightly worsened up to 2 today however his chest x-ray still showing evidence of CHF. Dobutamine is ordered. Patient also with acute hypoxic respiratory failure, which is mild on 3 L/m of oxygen. Several consultants on the case with the precise winder, construction rep and director of teaching and learning. 03/22/2021 Patient remains short of breath and having breathing difficulty even at rest where he states most of his time in the bed. No chest pain or coughing. He is saturating 100% on 4 L oxygen. A febrile He is stable. Labs showing creatinine at 2.1 dose to yesterday. Liver enzymes trending down, troponin is slightly up to 1.8. Because of this cardiology started the patient on heparin drip and possible ca rdiac cath. His pneumonia is improving while on Augmentin as there is trending down bothcalcitonin he remains on Augmentin, dobutamine drip at 5, Lasix IV 60 mg twice a day. Heparin drip instead of the Xarelto Ejection fraction less than 20% Patient is going to ECF upon discharge 03/23/2021 Patient breathing the same or slightly better. No significant coughing or chest pain. No leg swelling or basilic dictation. He is hemodynamically stable and saturating high 90s on 3 L oxygen via nasal ca nnula. No more fever. Creatinine trended down to 1.5, sodium went up to 147. Because of this Lasix 60 mg was switched from twice a day down to once daily. Patient remains on Augmentin, dobutamine at drip and heparin drip/Xarelto on hold for possible cardiac cath today Consultants on the case including director of teaching and learning, precise winder and pulmonary Patient will need to go to subacute rehab upon discharge Objective - Vital Signs Vital signs: Vital Signs Temp 98.0 F 03/23/21 04:00 Pulse 88 03/23/21 12:29 Resp 17 03/23/21 04:00 BP 135/64 03/23/21 04:00 Pulse Ox 98 07/28/21 04:00 Intake & Output 03/22/21 03/23/21 03/23/21 18:59 06:59 18:59 Intake Total 1850 Output Total 700 Balance 1850 -700 Weight 88.5 kg 88.5 kg Intake: IV 120 Sodium Chloride 0.9% 1, 120 000 ml @ 20 mls/hr IV . Q24H [facility] Rx#:[id number] Oral 1730 Output: Urine 700 Other: Voiding Method Indwelling Catheter Indwelling Catheter # Bowel Movements 1 2 - Exam -GENERAL: The patient is alert and oriented x3, not in any acute distress. Well developed, well nourished. Patient is weak and lethargic HEENT: Pupils are round and equally reacting to light. EOMI. No scleral icterus. No conjunctival pallor. Normocephalic, atraumatic. No pharyngeal erythema. No thyromegaly. CARDIOVASCULAR: S1 and S2 present. No murmurs, rubs, or gallops. -PULMONARY: Chest is clear to auscultation, no wheezing or crackles. Bilateral basal crepitation ABDOMEN: Soft, nontender, nondistended, normoactive bowel sounds. No palpable organomegaly. MUSCULOSKELETAL: No joint swelling or deformity. -EXTREMITIES: No cyanosis, clubbing,. Bilateral leg edema NEUROLOGICAL: Gross neurological examination did not reveal any focal deficits. SKIN: No rashes. no petechiae. - Labs CBC & Chem 7: 03/23/21 05:24 03/23/21 05:24 Labs: Abnormal Lab Results - Last 24 Hours (Table) 03/22/21 03/23/21 03/23/21 Range/Units 20:48 05:24 05:24 RBC 3.38 L (4.30-5.90) m/uL Hgb 10.2 L (13.0-17.5) gm/dL Hct 33.4 L (39.0-53.0) % MCHC 30.5 L (31.0-37.0) g/dL RDW 15.9 H (11.5-15.5) % Sodium 147 H (137-145) mmol/L Potassium 3.0 L 3.0 L (3.5-5.1) mmol/L Carbon Dioxide 32 H (22-30) mmol/L BUN 65 H (9-20) mg/dL Creatinine 1.56 H (0.66-1.25) mg/dL Glucose 127 H (74-99) mg/dL Troponin I (0.000-0.034) ng/mL 03/23/21 Range/Units 05:24 RBC (4.30-5.90) m/uL Hgb (13.0-17.5) gm/dL Hct (39.0-53.0) % MCHC (31.0-37.0) g/dL RDW (11.5-15.5) % Sodium (137-145) mmol/L Potassium (3.5-5.1) mmol/L Carbon Dioxide (22-30) mmol/L BUN (9-20) mg/dL Creatinine (0.66-1.25) mg/dL Glucose (74-99) mg/dL Troponin I 1.300 H* (0.000-0.034) ng/mL Microbiology - Last 24 Hours (Table) 03/16/21 15:42 Blood Culture - Final Blood No Growth after 144 hours 03/16/21 15:27 Blood Culture - Final Blood No Growth after 144 hours Assessment and Plan Assessment: Acute and chronic systolic CHF with ejection fraction less than 20%, status post AICD Acute hypoxic respiratory failure Acute kidney injury secondary to cardiorenal syndrome non-STEMI Recent fall Nonsustained ventricular tachycardia Elevated liver enzymes secondary to congested liver improving with Lasix History of DVT Chronic atrial fibrillation and symmetrical. History Of alcohol abuse History Of GI bleed Plan: This is a pleasant 81 years old male who presents with CHF and pneumonia. Continue with Lasix and dobutamine Monitor input and output. Monitored creatinine and electrolytes Hold heparin drip/subtotal for possible cardiac cath per Nephrology and per cardiology teams Labs and medication were reviewed.. Continue same treatment. Continue with symptomatic treatment. Resume home medication. Monitor lytes and vitals. DVT and GI prophylaxis. Further recommendationsas per clinical course of the patient DVT prophylaxis: heparin GI prophylaxis: Pepcid Physical therapy: subacute rehab Prognosis is guarded
--- NOTE | 2021-03-23 14:00 | P.PN ---
Subjective This is a 1-year-old male past medical history cardiomyopathy unclear etiology, AICD placement, chronic nicotine dependence, chronic alcohol intake (usually 1/2 fifth per day), atrial fibrillation, DVT, hyperlipidemia, valvular heart disease moderate tricuspid regurgitation and moderate mitral regurgitation, severe pulmonary hypertension. He does not follow regularly with a director product management. Cardiology was initially consulted for an arrhythmia. Patient also had elevated troponin at 0.12. Patient presents emergency department with worsening dyspnea, left arm pain, right back pain. He was placed on BIPAP, admitted to the ICU for further monitoring. He had episodes of non sustained ventricular tachycardia, asymptomatic. He was placed on IV amiodarone drip. Echocardiogram revealed an EF of less than 20%, RV is severely enlarged, LA severely dilated, mild aortic regurgitation, mild mitral regurgitation and mild tricuspid regurgitation, mild pulmonary hypertension with RVSP of 45 mmHg. Previous echocardiogram with an EF 30-35%. He states that he was admitted at [facility] in [place] in 2010 due to cardiac arrest he was told that he had a weakened heart. He states he did undergo a cardiac catheterization was told that his blockages were not enough to fix. He also had a AICD placed after this. Records that were sent over from [facility] were a EP procedure for dual chamber ICD generator change on 03/27/2017. It does state in patient's medical history that he has a history of coronary artery disease, Vfib arrest and ICD implantation in 2010, cardiomyopathy with EF 20-25% from an echocardiogram on 01/23/2017. No further details sent over. Patient seen and examined at bedside. He had multiple episodes of NSVT overnight 8-15 beat runs. Patient started on metoprolol succinate 25mg daily. He was conf used overnight, not using his BIPAP per nursing. Once his BIPAP was placed and patient slept his mentation improved. He currently denies any chest pain or shortness of breath. He seems to be improving. Today revealed sodium 147, potassium 3.0, BUN 65, serum creatinine 1.56, troponin 1.8, 1.3, WBC 6.6, hemoglobin 10.2, platelets 201. Blood pressure 135/64, heart rate 70, afebrile, maintaining oxygen saturations 98% on 3 L nasal cannula. Telemetry reviewed, he is in atrial fibrillation, with controlled rates, does continue to have NSVT runs overnight. GENERAL: In no acute distress. NECK: Supple. +JVD improving from yesterday LUNGS: Breath sounds crackles bilaterally. Respiration equal and unlabored. No wheezes, rales or rhonchi. HEART: Irregular rate and rhythm, S1 and S2 heard. S3 with systolic murmur. EXTREMITIES: Normal range of motion, no edema. No clubbing or cyanosis. Periph eral pulses intact. NEURO: alert and oriented x 3. ASSESSMENT: Acute hypoxic respiratory failure secondary to congestive heart failure Acute Kidney Injury, Cardiorenal syndrome Severe pulmonary hypertension Elevated liver enzymes most likely liver congestion Acute systolic heart failure with reduced EF Non sustained ventricular tachycardia History of cardiomyopathy unclear etiology status post AICD placement History of chronic alcohol abuse History of chronic atrial fibrillation on Xarelto History of DVT ETOH abuse Chronic nicotine dependence History of dyslipidemia Hypokalemia Hypernatremia PLAN: -Spoke with [facility] records they state they will try to send over additional records from 2010. -Plan for patient to undergo right heart cath with Dr. Villarreal today. -Xarelto held last night. -Replace potassium -Discontinue dobutamine -Decrease IV Diuresis- IV Lasix 60mg IV daily, will adjust pending patient's right heart cath results -Increase hydralazine 20mg QID -Continue amiodarone, sildenafil and spionolactone -Nephrology following, appreciate recs -Pulmonary following, appreciate recs -Further recommendations based on clinical course Objective - Vital Signs Vital signs: Vital Signs Temp 98.0 F 03/23/21 04:00 Pulse 88 03/23/21 12:29 Resp 17 03/23/21 04:00 BP 135/64 03/23/21 04:00 Pulse Ox 98 03/23/21 04:00 Intake & Output 03/22/21 03/23/21 03/23/21 18:59 06:59 18:59 Intake Total 1850 Output Total 700 Balance 1850 -700 Weight 88.5 kg 88.5 kg Intake: IV 120 Sodium Chloride 0.9% 1, 120 000 ml @ 20 mls/hr IV . Q24H ROBERT Rx#:[id number] Oral 1730 Output: Urine 700 Other: Voiding Method Indwelling Catheter Indwelling Catheter # Bowel Movements 1 2 - Labs CBC & Chem 7: 03/23/21 05:24 03/23/21 05:24 Labs: Abnormal Lab Results - Last 24 Hours (Table) 03/22/21 03/23/21 03/23/21 Range/Units 20:48 05:24 05:24 RBC 3.38 L (4.30-5.90) m/uL Hgb 10.2 L (13.0-17.5) gm/dL Hct 33.4 L (39.0-53.0) % MCHC 30.5 L (31.0-37.0) g/dL RDW 15.9 H (11.5-15.5) % Sodium 147 H (137-145) mmol/L Potassium 3.0 L 3.0 L (3.5-5.1) mmol/L Carbon Dioxide 32 H (22-30) mmol/L BUN 65 H (9-20) mg/dL Creatinine 1.56 H (0.66-1.25) mg/dL Glucose 127 H (74-99) mg/dL Troponin I (0.000-0.034) ng/mL 03/23/21 Range/Units 05:24 RBC (4.30-5.90) m/uL Hgb (13.0-17.5) gm/dL Hct (39.0-53.0) % MCHC (31.0-37.0) g/dL RDW (11.5-15.5) % Sodium (137-145) mmol/L Potassium (3.5-5.1) mmol/L Carbon Dioxide (22-30) mmol/L BUN (9-20) mg/dL Creatinine (0.66-1.25) mg/dL Glucose (74-99) mg/dL Troponin I 1.300 H* (0.000-0.034) ng/mL Microbiology - Last 24 Hours (Table) 03/16/21 15:42 Blood Culture - Final Blood No Growth after 144 hours 03/16/21 15:27 Blood Culture - Final Blood No Growth after 144 hours
[2021-03-23] MEDS ORDERED: HEPARIN SODIUM 1,000 UN/ML (10ML VL) ONE (14:04)
[2021-03-23] MEDS ORDERED: IV FLUID CONTINUATION 1,000 ML IV ONE (14:05)
[2021-03-23] MEDS ORDERED: LIDOCAINE 1% INJ 10MG/ML (20 ML MDV) ONE (14:05)
[2021-03-23] MEDS ORDERED: fentaNYL (PF) 50 MCG/ML 2 ML AMP ONE (14:05)
[2021-03-23] MEDS ORDERED: LIDOCAINE 1% INJ 10MG/ML (20 ML MDV) SQ ONE (14:23)
[2021-03-23] MEDS ORDERED: RX INFO: IV CONTRAST WAS GIVEN 1 EACH MISC MISCELLANE PRN (14:46)
[2021-03-23 14:50] LABS: O2 Sat Blood Gas 60.3 %
[2021-03-23 14:53] LABS: O2 Sat Blood Gas 60.5 %
--- NOTE | 2021-03-23 16:50 | PN ---
PROGRESS NOTE Patient is seen for followup for acute kidney injury. He is currently being diuresed. Renal function has improved. This morning patient is seen on BiPAP. He has refused BiPAP overnight and was confused. PHYSICAL EXAMINATION: On examination today, blood pressure 135/64, heart rate 78 per minute, he is afebrile. Examination of the heart S1, S2. Examination of lungs, decreased breath sounds at bases, basal crackles are heard. Abdomen is soft, nontender. Examination of lower extremities shows trace edema bilaterally. WATER POLLUTION CONTROL INSPECTOR exam shows patient is moving all 4 extremities. LAB: Show sodium 147, potassium 3.0, chloride 107, CO2 is 32, BUN 65, serum creatinine 1.56. Troponin 1.3. ASSESSMENT: 1. Acute kidney injury, cardiorenal, improved. The patient is maintained on IV Lasix and dobutamine. He remains volume overloaded. I will continue to diurese the patient. Sodium has been increased to 147. Continue to monitor for now. 2. Hypokalemia secondary to diuresis, being replaced. 3. Chronic CHF, EF 30-35% with moderate mitral and tricuspid regurgitation. 4. Ventricular tachycardia, maintained on amiodarone. 5. Volume overload, currently being diuresed. 6. ( ) failure secondary to congestive heart failure exacerbation and volume overload. The patient has been refusing BiPAP. PLAN: Continue with IV Lasix. Repeat labs in a.m. Monitor sodium. Replace potassium. Continue to encourage the patient to use BiPAP. MMODL / IJN: [id number] /
--- NOTE | 2021-03-23 19:41 | CC ---
CARDIAC CATHETERIZATION REPORT PROCEDURE: Right heart catheterization. Mr. Hussein is an 81-year-old male with known history of severe cardiomyopathy, history of atrial fibrillation who presented with ventricular tachycardia and progressive dyspnea. His echocardiogram revealed severely impaired left ventricular systolic function. Patient continues to have symptoms of dyspnea with worsening renal function with diuresis. In view of that, after evaluation by Dr. Rosa, recommendation made regarding right heart catheterization to evaluate his filling pressure. The procedures as well as the risks and complications were discussed with the patient who is in full understanding and agreement. PROCEDURE IN DETAIL: Patient was brought to the catheterization laboratory technician. He was prepped and draped in conventional fashion using Xylocaine anesthesia. The intravenous catheter in the right basilic vein was exchanged to a 6-Macedonian sheath over the guidewire. Subsequently, right heart catheterization performed using Hammond-Isadora catheter. Multiple pressure samples were obtained. Cardiac output by thermodilution was calculated. Following that, the catheter was removed and an arterial sample from the right femoral artery was obtained. Following that, catheter was removed. Hemostasis was obtained with compression on the right brachial area. There was no immediate complication. Patient is returned to his room in stable condition. FINDINGS: Right atrial saturation, V-wave of 8 with a mean of 7 mmHg. Right ventricular systolic pressure is 42 with the end-diastolic of 8 mmHg. Pulmonary artery systolic of 42, diastolic 10 with a mean of 26 minute Hg. Pulmonary capillary wedge pressure V-wave of 30, mean of 16-18 mmHg. Cardiac output by thermodilution of 7 L/minute and by Ivory of 6.6 L/minute. Cardiac index by Ivory of 3.2 L/minute per m square and by thermodilution of 3.4 L/minute per m square. Right atrial saturation 60%, pulmonary artery saturation 61%, femoral artery saturation of 95%. IMPRESSION: Mild pulmonary hypertension with preserved cardiac output. RECOMMENDATION: Patient will continue present therapy at this time. There is no significant elevation of his filling pressure. We will optimize his medical regimen. I discussed those findings with the family. Unfortunately, the prognosis remains guarded in view of his severe cardiomyopathy. Duration of sedation of 16 minutes. MMJAREDL / DAVIDN: [id number] /
[2021-03-23] MEDS: TAMSULOSIN 0.4 MG CAP.ER.24H PO SCH (20:56)
[2021-03-23] MEDS: FAMOTIDINE 20 MG TAB PO SCH (20:56)
[2021-03-23] MEDS: allopurinoL 100 MG TAB PO SCH (20:56)
[2021-03-23] MEDS ORDERED: ASPIRIN 325 MG TAB ONE (23:59)
[2021-03-23] MEDS ORDERED: ATORVASTATIN 80 MG TAB ONE (23:59)
[2021-03-23] MEDS ORDERED: SODIUM CHLORIDE 0.9% 1,000 ML BAG ONE (23:59)
[2021-03-23] MEDS ORDERED: DOBUTamine DRIP 500 MG/250 ML BAG IV ONE (23:59)
[2021-03-24] MEDS: LEVOTHYROXINE 50 MCG TAB PO SCH (06:12)
[2021-03-24] MEDS: IPRATROPIUM-ALBUTEROL 3 ML NEB INHALATION SCH ×4 (07:51→20:10)
[2021-03-24 08:02] LABS: Calcium 8.9 mg/dL (8.4-10.2); Potassium 3.3 mmol/L (3.5-5.1); Total Bilirubin 1.3 mg/dL (0.2-1.3); Total Protein 5.9 g/dL (6.3-8.2)
[2021-03-24 08:08] LABS: Bilirubin, Delta 0.9 mg/dL (0.0-0.2); Bilirubin,Unconjugated 0.4 mg/dL (0.0-1.1); Magnesium 1.9 mg/dL (1.6-2.3); Total Bilirubin 1.3 mg/dL (0.2-1.3); Total Protein 5.9 g/dL (6.3-8.2)
[2021-03-24] MEDS: METOPROLOL SUCCINATE (ER) 25 MG TAB.ER.24H PO SCH (08:54)
[2021-03-24] MEDS: ESCITALOPRAM 10 MG TAB PO SCH (08:54)
[2021-03-24] MEDS: SILDENAFIL 20 MG TAB PO SCH ×3 (08:54→20:55)
[2021-03-24] MEDS: hydrALAZINE HCL 10 MG TAB PO SCH ×4 (08:54→20:55)
[2021-03-24] MEDS: SPIRONOLACTONE 25 MG TAB PO SCH (08:54)
[2021-03-24] MEDS: AMOXIC-POT CLAV 875-125MG 1 EACH TAB PO SCH ×2 (08:55→20:55)
[2021-03-24] MEDS: POTASSIUM CHLORIDE ER 20 MEQ TAB.ER PO SCH ×4 (08:55→18:33)
[2021-03-24] MEDS: CYANOCOBALAMIN 500 MCG TAB PO SCH (08:55)
[2021-03-24] MEDS: AMIODARONE 200 MG TAB PO SCH ×3 (08:56→20:56)
[2021-03-24] MEDS ORDERED: FUROSEMIDE 10 MG/ML 10 ML VIAL IV SCH (09:00)
[2021-03-24] MEDS: SODIUM CHLORIDE 0.9% 1,000 ML IV SCH ×2 (09:39→15:31)
[2021-03-24] MEDS: MENTHOL-ZINC OXIDE OINT 113 GM TUBE TOPICAL SCH (09:40)
[2021-03-24] MEDS ORDERED: FUROSEMIDE 40 MG TAB PO SCH (10:11)
--- NOTE | 2021-03-24 14:42 | P.PN ---
Subjective Progress Note Date: 03/24/21 81-year-old male, who is admitted to the hospital, on March 16. He came into the emergency room with complaints of shortness of breath. He was brought in by EMS. He apparently is been having difficulty with breathing for some time. The patient is a very poor historian. The patient apparently did not admit to any chest pain or chest pressure. There is no cough, fever, chills, nausea, vomiting, or diarrhea. Currently, the patient is on BiPAP, with settings of 14/5 and 40%. He is receiving amiodarone at 1 mg/m, saline at 130 mL an hour, and a blood gas will be done. The patient has a history of chronic hypoxemic respiratory failure, chronic alcohol abuse, atrial fibrillation, DVT, gastroesop hageal reflux disease, gastrointestinal bleed, myocardial infarction, hyperlipidemia, status post AICD placement, and BPH. Laboratory data includes a white count 11.4, hemoglobin 10.2, hematocrit 32.9, and platelet count 216,000. Blood gases show pO2 106, pCO2 46, with a normal pH. Sodium 138, potassium 4.7, chlorides 102, CO2 29, anion gap 7, BUN 34, creatinine 1.79. AST was 592, and ALT was 290. Urine was negative. The patient's troponin level was 0.127 and the N-terminal proBNP was nearly 11,000. The TSH was normal. Chest x-ray in my opinion, shows cardiomegaly, changes of vascular decompensation. Small effusions and fluid in the minor fissure as well. On 03/18/2001 patient seen in follow-up in the intensive care unit, this morning he is on 3 L of oxygen, his pulse ox is 94%, he only for his BiPAP very briefly for a few minutes last night, and then asked for her to be removed, BiPAP settings were 14/5 and FiO2 of 40%. This morning he appears to be in no acute distress, currently on 0.9 normal saline at 20 ML per hour, and amiodarone is currently off. She remains in atrial fibrillation the rate is controlled at 74 BPM, overall he is looking better and feeling better. he is awake and alert, he is answering questions appropriately, breathing comfortably. No complaint of chest pain, no cough, he remains on breathing treatments, and antibiotics in the form of Zosyn. blood culture showed no growth, he is afebrile this morning, T- max in the last 24 hours was 99.9. today's labs have been reviewed, showing white blood cell count of 8, hemoglobin of 9.3, electrolytes within normal limits, B1 is 44, creatinine is 2.05. His repeat proBNP came back at 31,005 100, his pro calcitonin level was elevated at 1.14.today's follow-up chest x-ray shows interval worsening of right mid and lower lung zone airspace disease. There is left basilar pleural parenchymal disease appears to be stable compared to yesterday's exam. On 03/19/2021 patient seen in follow-up on selective care unit, he is awake and alert, in no acute distress, resting in bed, he is on 3 L of oxygen pulse ox is 96%, breathing comfortably, afebrile, did not require BiPAP support last night. Vital signs have been stable, no complaints of worsening dyspnea or cough. His last chest x-ray yesterday showed some mild interval worsening of right lung airspace disease. Patient remains on Zosyn for antibiotic coverage, he also remains on oral Lasix 80 mg twice daily, he is in -835 mL fluid balance, his weight is down by 4.7 kg in the last 24 hours. Renal profile slightly improved on today's labs, nephrology is following. His liver enzymes are improving, his white blood cell count is normal and significantly improved since admission. He seen [facility] for his left shoulder pain, x-ray of the left shoulder is pending. On 03/21/2021 patient seen in follow-up on selective care unit. He is awake and alert, oriented 3, he is currently sitting up in the recliner, does not appear to be in any acute distress, however he does have exertional dyspnea with any little exertion. He is currently on 3 L of oxygen pulse ox of 100%. Afebrile, only occasional cough, no hemoptysis, no chest pain., However his follow-up chest x-ray shows pulmonary vessel congestion, and some blunting of the costophrenic angles consistent with small bilateral pleural effusions. Lung exam reveals diffuse crackles, patient has positive JVD. He has been on Lasix 60 mg every 12 hours, over his diuresis has been suboptimal, and he is only modestly in negative fluid balance, approximately -300 mL over last 24 hours. His weight is has actually trended up since yesterday, and patient is positive 3 kg. Today's labs have been reviewed, his renal function continues to worsen, his BUN today is up to 64, creatinine is 2.01. Potassium is 3.3, this has been replaced per protocol, his pro calcitonin is improving and is down to 0.38 from 0.63. No fever or chills. Blood cultures have shown no growth. He remains on oral Augmentin. He remains on nebulized bronchodilators. 03/22/2021, the patient is feeling slightly better compared to yesterday. Had discussion with cardiology yesterday. He was having cardiorenal syndrome with an acute kidney injury and insufficiency secondary to diuresis and low cardiac output. He was started on dobutamine initially at 2.5 g and currently is up to 5 mcg/kg per minute. He is also on Lasix 60 mg IV every 24 hours. His weight is gradually improving. Neck veins are less distended. His net fluid balance over the past 24 hours has been -1.7 L of negative fluid balance. In terms of his electrolytes, potassium level is down to 3.2. His BUN is at 68 with a creatinine of 2.1. AST is down to 131, ALT is down to 253, serum pro calcitonin level is at 0.38. He is currently on oxygen at 5 L with a pulse ox of 98%. He remains on oral Augmentin. He is on long-term and to coagulation with Xarelto 15 mg once a day. Hydralazine was also added as an afterload reducing agent at a dose of 10 mg 4 times a day. His blood pressure currently 03/23/2021, the patient is still being optimized in terms of his CHF. His being treated for an acute decompensated CHF and acute non-STEMI. The patient remains on dobutamine drip at 5 mg/kg per minute. The patient is also on Lasix 60 mg IV every 24 hours. He is diuresing well. Overall fluid balance has not been accurately reported. Nevertheless, based on the reporting, the patient has produced around 800 mL of urine output over the past 24 hours and this brings into a negative fluid balance. Meanwhile, the patient had a sodium level of 147, potassium level is at 3 that needs to be replaced. His BUN is at 65 with a creatinine of 1.6. Note that his Lasix dose has been drop from twice a day michelle quency to once a day 60 mg IV push. Appointment declined down to 1.3. His white cell count of 6.6. He has no respiratory difficulties at rest. He has positive JVDs. The plan is to ultimately consider cardiac catheterization once this patient's respiratory status and renal failure further optimized. The patient is not utilizing a BiPAP for now. Echocardiac Des showed improvement function with an ejection fraction of less than 20% along with severely dilated RV and pulmonary hypertension with a PA pressure 45 mmHg. Note that this is a drop in his ejection fraction compared to previous echocardiograms. He did have elevated liver function test consistent with CHF. He remains on chronic atrial fibrillation with Xarelto status post AICD placement. 03/24/2021, the patient is feeling better. His much more awake and alert and responsive. He underwent a right-sided cardiac catheterization yesterday. He was on dobutamine at the time of the cardiac catheterization on the right side of the heart. He had adequate cardiac output. Wedge pressure was elevated. Pulmonary artery pressures are mildly elevated. In any rate, there was no evidence of any shunting. The patient was taken off the dobutamine. He is currently off the vitamin today. He is also on Lasix. He is still making good urine and he is a negative fluid balance. Creatinine continues to improve as the patient is recovering from his acute kidney injury. He remains in atrial fibrillation. It is cardiomyopathy with impaired at the function with ejection fraction of less than 20%. He has an AICD in place. He has chronic alcoholism. He also has chronic smoking history. He did have multiple episodes of nonsustained V. tach overnight around 8-15 beat runs on 03/23/2021. Cardiology is aware.. He was maintained on metoprolol 25 XL mg by mouth daily. Did not utilizes BiPAP overnight. Currently is hemodynamically stable. He remains on oral Augmentin. He is also on Lasix 40 g by mouth daily and Aldactone 25 mg by mouth daily. He is on long-term anticoagulation with Xarelto. On a combination of Lasix and Aldactone 25 mg by mouth daily. He remains on amiodarone 200 mg by mouth 3 times a day. Objective - Vital Signs Vital signs: Vital Signs Temp 97.6 F 03/24/21 13:00 Pulse 83 03/24/21 13:00 Resp 15 03/24/21 13:00 BP 123/62 03/24/21 13:00 Pulse Ox 96 03/24/21 13:00 Intake & Output 03/23/21 03/24/21 03/24/21 18:59 06:59 18:59 Intake Total 550 0 Output Total 1550 520 2 Balance -1000 -520 -2 Weight 84.5 kg Intake: IV 10 Oral 540 0 Output: Urine 1550 520 Stool 2 Other: Voiding Method Indwelling Catheter Indwelling Catheter Indwelling Catheter # Bowel Movements 1 - Exam GENERAL EXAM: Alert, very pleasant, 81-year-old white male, on 5 L of oxygen and the pulse ox of 100% comfortable in no apparent distress. HEAD: Normocephalic/atraumatic. EYES: Normal reaction of pupils, equal size. Conjunctiva pink, sclera white. NOSE: Clear with pink turbinates. THROAT: No erythema or exudates. NECK: No masses, positive JVD, no thyroid enlargement, no adenopathy. CHEST: No chest wall deformity. Symmetrical expansion. LUNGS: Equal air entry with no crackles, wheeze, rhonchi or dullness. CVS: Irregular rate and rhythm, normal S1 and S2, no gallops, no murmurs, no rubs ABDOMEN: Soft, nontender. No hepatosplenomegaly, normal bowel sounds, no guarding or rigidity. EXTREMITIES: No clubbing, no edema, no cyanosis, 2+ pulses and upper and lower extremities. MUSCULOSKELETAL: Muscle strength and tone normal. SPINE: No scoliosis or deformity SKIN: No rashes CENTRAL NERVOUS SYSTEM: Alert and oriented -3. No focal deficits, tone is normal in all 4 extremities. PSYCHIATRIC: Alert and oriented -3. Appropriate affect. Intact judgment and insight. - Labs CBC & Chem 7: 03/23/21 05:24 03/24/21 07:25 Labs: Abnormal Lab Results - Last 24 Hours (Table) 03/23/21 03/24/21 03/24/21 Range/Units 18:28 07:25 07:25 Potassium 3.2 L 3.3 L (3.5-5.1) mmol/L Carbon Dioxide 31 H (22-30) mmol/L BUN 44 H (9-20) mg/dL Glucose 124 H (74-99) mg/dL Delta Bilirubin 0.9 H (0.0-0.2) mg/dL AST 166 H 165 H (17-59) U/L ALT 208 H 212 H (4-49) U/L Total Protein 5.9 L 5.9 L (6.3-8.2) g/dL Albumin 3.0 L 3.0 L (3.5-5.0) g/dL Assessment and Plan Plan: #1. Acute hypoxic respiratory failure secondary to acute exacerbation of CHF, possibility of pneumonia is less likely although not completely excluded. Nila ent is covered with oral antibiotics in the form of Augmentin. He is currently being diuresed with IV Lasix. The patient is also on dobutamine to augment the cardiac output. Currently is off dobutamine. Right-sided cardiac catheterization was done and the results were noted. The patient remains on Lasix and Aldactone and he remains in a negative fluid balance. He is on 4 L of oxygen by nasal cannula. On examination she still has crackles in lung bases bilaterally and possibly some small pleural effusions. #2. History of chronic alcohol abuse #3. History of chronic atrial fibrillation with acute rapid ventricular response. Currently better controlled, maintained on long-term anticoagulation with Xarelto. #4. Chronic systolic heart failure and an ejection fraction of 20% and the patient is post AICD placement, did have some episodes of nonsustained V. tach short runs on 03/15/2021. #5. Acute kidney injury, improving and the creatinine is down to 1.1 #6. History of prior GI bleeding #7. History of hyperlipidemia #8. History of myocardial infarction #9. History of cardiomyopathy status post AICD placement #10. History of BPH #11. History of tobacco use rule out COPD #12. Left shoulder pain, orthopedic surgery is following, x-ray of the left shoulder is pending #13 History of DVT Plan: Discontinue dobutamine Continue Lasix and Aldactone, currently on Lasix 40 mg by mouth daily and Aldactone 25 mg by mouth daily. IV fluids are to KVO. Monitor fluid balance and renal function, creatinine is improving for now The results of the right-sided was noted. Continue amiodarone, sildenafil and Aldactone, Toprol XL 25 mg by mouth daily Continues to show signs of improvement. We'll continue to follow.
--- NOTE | 2021-03-24 15:15 | P.PN ---
Subjective This is a 1-year-old male past medical history cardiomyopathy unclear etiology, AICD placement, chronic nicotine dependence, chronic alcohol intake (usually 1/2 fifth per day), atrial fibrillation, DVT, hyperlipidemia, valvular heart disease moderate tricuspid regurgitation and moderate mitral regurgitation, severe pulmonary hypertension. He does not follow regularly with a litigation docket manager. Cardiology was initially consulted for an arrhythmia. Patient also had elevated troponin at 0.12. Patient presents emergency department with worsening dyspnea, left arm pain, right back pain. He was placed on BIPAP, admitted to the ICU for further monitoring. He had episodes of non sustained ventricular tachycardia, asymptomatic. He was placed on IV amiodarone drip. Echocardiogram revealed an EF of less than 20%, RV is severely enlarged, LA severely dilated, mild aortic regurgitation, mild mitral regurgitation and mild tricuspid regurgitation, mild pulmonary hypertension with RVSP of 45 mmHg. Previous echocardiogram with an EF 30-35%. He states that he was admitted at [facility] in [place] in 2010 due to cardiac arrest he was told that he had a weakened heart. He states he did undergo a cardiac catheterization was told that his blockages were not enough to fix. He also had a AICD placed after this. 03/23/2021: Patient underwent right heart cath with Dr. Villarreal, no significant elevation of his filling pressure, right ventricular systolic pressure is 42 with end diastolic 8 mmHg. Pulmonary artery systolic of 42, diastolic 10 with a mean of 26. Platelet Wedge pressure of 30, mean of 16- 18 mmHg. Mild pulmonary hypertension with preserved cardiac output. 03/24/2021: Patient seen and examined at bedside. He does continue to have some NSVT overnight 8-15 beat runs. Patient started on metoprolol succinate 25mg daily. Patient seen and examined at bedside, no acute distress. No chest pain, shortness of breath. He states he's feeling much better. His mental status is improved. Blood pressure 120/62, heart rate 83, afebrile, maintaining oxygen saturations on 4 L nasal cannula. Laboratory data reviewed sodium 144, potassiu m 3.3, BUN 44, serum creatinine 1.10, magnesium 1.9, LFTs AST 165, ALT 212. Patient currently maintained on amiodarone 200 mg 3 times a day, statin held due to elevated liver enzymes, Lasix 60 mg IV daily, hydralazine 20 mg 4 times a day, metoprolol titrate 25 mg daily, Xarelto 15 mg nightly, spironolactone 25 mg daily, sildenafil 20 mg 3 times a day Records from [facility]: -12/06/2010, patient was found to be in V. fib arrest at home and was transporte d to [facility] ER. Patient was defibrillated and taken straight to the laborer ship[facility]. Cardiac catheterization revealed left main showed 20-30% stenosis, LAD had a 40% long stenosis in the proximal segment, ramus intermedius branch showed mild luminal irregularities with 10-20% diffuse disease, circumflex artery had an ostial 50-60% stenosis and showed mild luminal irregularities in the mid and distal segments. RCA was 100% occluded with ejection fraction of 20%. No stenting was performed -Dual chamber AICD was placed in 12/12/2010 -Echocardiogram 12/13/2010 revealed global hypokinesis of the LV with an EF of 25-30%, mild to moderate mitral regurgitation, mild tricuspid regurgitation GENERAL: In no acute distress. NECK: Supple. JVD has much improved LUNGS: Breath sounds has improved mild crackles bilaterally. Respiration equal and unlabored. No wheezes, rales or rhonchi. HEART: Irregular rate and rhythm, S1 and S2 heard.systolic ejection murmur at the apex EXTREMITIES: Normal range of motion, no edema. No clubbing or cyanosis. Peripheral pulses intact. NEURO: alert and oriented x 3. ASSESSMENT: Acute hypoxic respiratory failure secondary to congestive heart failure Acute Kidney Injury, Cardiorenal syndrome Severe pulmonary hypertension Elevated liver enzymes most likely liver congestion Acute systolic heart failure with reduced EF Non sustained ventricular tachycardia Coronary artery disease Ischemic cardiomyopathy status post AICD placement History of chronic alcohol abuse History of chronic atrial fibrillation on Xarelto History of DVT ETOH abuse Chronic nicotine dependence History of dyslipidemia Hypokalemia Hypernatremia Noncompliance PLAN: -At this time we will continue current present therapy -Patient without symptoms of angina, with acute on chronic kidney disease, and medical non-compliance we will not proceed with cardiac catheterization at this time -Replace potassium -Decrease Lasix 40mg daily -Contineu hydralazine 20mg QID, amiodarone,metoprolol succinate, sildenafil and spionolactone -Nephrology following, appreciate recs -Pulmonary following, appreciate recs -Further recommendations based on clinical course Objective - Vital Signs Vital signs: Vital Signs Temp 97.6 F 03/24/21 13:00 Pulse 83 03/24/21 13:00 Resp 15 03/24/21 13:00 BP 123/62 03/24/21 13:00 Pulse Ox 96 03/24/21 13:00 Intake & Output 03/23/21 03/24/21 03/24/21 18:59 06:59 18:59 Intake Total 550 0 Output Total 1550 520 2 Balance -1000 -520 -2 Weight 84.5 kg Intake: IV 10 Oral 540 0 Output: Urine 1550 520 Stool 2 Other: Voiding Method Indwelling Catheter Indwelling Catheter Indwelling Catheter # Bowel Movements 1 - Labs CBC & Chem 7: 03/23/21 05:24 03/24/21 07:25 Labs: Abnormal Lab Results - Last 24 Hours (Table) 03/23/21 03/24/21 03/24/21 Range/Units 18:28 07:25 07:25 Potassium 3.2 L 3.3 L (3.5-5.1) mmol/L Carbon Dioxide 31 H (22-30) mmol/L BUN 44 H (9-20) mg/dL Glucose 124 H (74-99) mg/dL Delta Bilirubin 0.9 H (0.0-0.2) mg/dL AST 166 H 165 H (17-59) U/L ALT 208 H 212 H (4-49) U/L Total Protein 5.9 L 5.9 L (6.3-8.2) g/dL Albumin 3.0 L 3.0 L (3.5-5.0) g/dL
--- NOTE | 2021-03-24 17:59 | PN ---
PROGRESS NOTE The patient is seen for followup for acute kidney injury and cardiorenal syndrome. Patient's renal function continues to improve with ongoing diuresis. His weight has decreased further to 84.5 kg. A 24-hour urine output documented at 1.5 L. This morning patient is lying flat. He denies any shortness of breath. PHYSICAL EXAMINATION: Blood pressure was 120/67, heart rate 83 per minute. He is afebrile. Examination of the heart S1, S2. Examination of the lungs, bilateral breath sounds are heard. Abdomen is soft, nontender. Examination of lower extremities shows edema trace bilaterally. ROUNDSMAN exam grossly intact. LAB: Shows sodium 144, potassium 3.3, BUN 44, serum creatinine 1.1 mg/dL. ASSESSMENT: 1. Acute kidney injury, cardiorenal, currently improving. Patient is maintained on IV Lasix. She he had also been on dobutamine, which is now discontinued. 2. Acute hypoxic respiratory failure, currently improved. 3. Hypokalemia associated with diuresis status post replacement. 4. Cardiomyopathy, ejection fraction 30-35% with moderate mitral and tricuspid regurgitation. The patient had a cardiac catheterization yesterday which showed preserved EF with mild pulmonary hypertension. 5. Volume overload currently improved. PLAN: Continue to diurese patient. Replace potassium aggressively. MMODL / IJN: [id number] /
[2021-03-24] MEDS: FAMOTIDINE 20 MG TAB PO SCH (20:55)
[2021-03-24] MEDS: allopurinoL 100 MG TAB PO SCH (20:56)
[2021-03-24] MEDS: TAMSULOSIN 0.4 MG CAP.ER.24H PO SCH (20:56)
[2021-03-25] MEDS: LEVOTHYROXINE 50 MCG TAB PO SCH (06:10)
[2021-03-25] MEDS ORDERED: POTASSIUM CHLORIDE ER 20 MEQ TAB.ER PO STA (07:41)
[2021-03-25] MEDS: IPRATROPIUM-ALBUTEROL 3 ML NEB INHALATION SCH ×4 (07:49→19:45)
[2021-03-25] MEDS ORDERED: FUROSEMIDE 40 MG TAB PO SCH ×2 (09:00)
[2021-03-25] MEDS: ESCITALOPRAM 10 MG TAB PO SCH (09:15)
[2021-03-25] MEDS: AMOXIC-POT CLAV 875-125MG 1 EACH TAB PO SCH ×2 (09:15→23:18)
[2021-03-25] MEDS: SILDENAFIL 20 MG TAB PO SCH ×3 (09:15→23:17)
[2021-03-25] MEDS: hydrALAZINE HCL 10 MG TAB PO SCH ×4 (09:16→21:02)
[2021-03-25] MEDS: SPIRONOLACTONE 25 MG TAB PO SCH (09:16)
[2021-03-25] MEDS: AMIODARONE 200 MG TAB PO SCH (09:16)
[2021-03-25] MEDS: METOPROLOL SUCCINATE (ER) 25 MG TAB.ER.24H PO SCH (09:16)
[2021-03-25] MEDS: CYANOCOBALAMIN 500 MCG TAB PO SCH (09:16)
[2021-03-25] MEDS: SODIUM CHLORIDE 0.9% 1,000 ML IV SCH ×3 (09:24→16:27)
[2021-03-25] MEDS: MENTHOL-ZINC OXIDE OINT 113 GM TUBE TOPICAL SCH (09:25)
[2021-03-25 12:37] LABS: Albumin 2.9 g/dL (3.5-5.0); Calcium 8.6 mg/dL (8.4-10.2); Potassium 3.8 mmol/L (3.5-5.1); Total Bilirubin 1.2 mg/dL (0.2-1.3); Total Protein 5.9 g/dL (6.3-8.2)
[2021-03-25] MEDS ORDERED: FUROSEMIDE 10 MG/ML 4 ML VIAL IV STA (13:34)
--- NOTE | 2021-03-25 13:38 | P.PN ---
Subjective Progress Note Date: 03/25/21 Principal diagnosis: dyspnea, hypoxia 81-year-old male, who is admitted to the hospital, on March 16. He came into the emergency room with complaints of shortness of breath. He was brought in by EMS. He apparently is been having difficulty with breathing for some time. The patient is a very poor historian. The patient apparently did not admit to any chest pain or chest pressure. There is no cough, fever, chills, nausea, vomiting, or diarrhea. Currently, the patient is on BiPAP, with settings of 14/5 and 40%. He is receiving amiodarone at 1 mg/m, saline at 130 mL an hour, and a blood gas will be done. The patient has a history of chronic hypoxemic respiratory failure, chronic alcohol abuse, atrial fibrillation, DVT, gastroesophageal reflux disease, gastrointestinal bleed, myocardial infarction, hyperlipidemia, status post AICD placement, and BPH. Laboratory data includes a white count 11.4, hemoglobin 10.2, hematocrit 32.9, and platelet count 216,000. Blood gases show pO2 106, pCO2 46, with a normal pH. Sodium 138, potassium 4.7, chlorides 102, CO2 29, anion gap 7, BUN 34, creatinine 1.79. AST was 592, and ALT was 290. Urine was negative. The patient's troponin level was 0.127 and the N-terminal proBNP was nearly 11,000. The TSH was normal. Chest x-ray in my opinion, shows cardiomegaly, changes of vascular decompensation. Small effusions and fluid in the minor fissure as well. On 03/18/2001 patient seen in follow-up in the intensive care unit, this morning he is on 3 L of oxygen, his pulse ox is 94%, he only for his BiPAP very briefly for a few minutes last night, and then asked for her to be removed, BiPAP settings were 14/5 and FiO2 of 40%. This morning he appears to be in no acute distress, currently on 0.9 normal saline at 20 ML per hour, and amiodarone is currently off. She remains in atrial fibrillation the rate is controlled at 74 BPM, overall he is looking better and feeling better. he is awake and alert, he is answering questions appropriately, breathing comfortably. No complaint of chest pain, no cough, he remains on breathing treatments, and antibiotics in the form of Zosyn. blood culture showed no growth, he is afebrile this morning, T- max in the last 24 hours was 99.9. today's labs have been reviewed, showing white blood cell count of 8, hemoglobin of 9.3, electrolytes within normal limits, B1 is 44, creatinine is 2.05. His repeat proBNP came back at 31,005 100, his pro calcitonin level was elevated at 1.14.today's follow-up chest x-ray shows interval worsening of right mid and lower lung zone airspace disease. There is left basilar pleural parenchymal disease appears to be stable compared to yesterday's exam. On 03/19/2021 patient seen in follow-up on selective care unit, he is awake and alert, in no acute distress, resting in bed, he is on 3 L of oxygen pulse ox is 96%, breathing comfortably, afebrile, did not require BiPAP support last night. Vital signs have been stable, no complaints of worsening dyspnea or cough. His last chest x-ray yesterday showed some mild interval worsening of right lung airspace disease. Patient remains on Zosyn for antibiotic coverage, he also remains on oral Lasix 80 mg twice daily, he is in -835 mL fluid balance, his weight is down by 4.7 kg in the last 24 hours. Renal profile slightly improved on today's labs, nephrology is following. His liver enzymes are improving, his white blood cell count is normal and significantly improved since admission. He seen [facility] for his left shoulder pain, x-ray of the left shoulder is pending. On 03/21/2021 patient seen in follow-up on selective care unit. He is awake and alert, oriented 3, he is currently sitting up in the recliner, does not appear to be in any acute distress, however he does have exertional dyspnea with any little exertion. He is currently on 3 L of oxygen pulse ox of 100%. Afebrile, only occasional cough, no hemoptysis, no chest pain., However his follow-up chest x-ray shows pulmonary vessel congestion, and some blunting of the costophrenic angles consistent with small bilateral pleural effusions. Lung exam reveals diffuse crackles, patient has positive JVD. He has been on Lasix 60 mg every 12 hours, over his diuresis has been suboptimal, and he is only modestly in negative fluid balance, approximately -300 mL over last 24 hours. His weight is has actually trended up since yesterday, and patient is positive 3 kg. Today's labs have been reviewed, his renal function continues to worsen, his BUN today is up to 64, creatinine is 2.01. Potassium is 3.3, this has been replaced per protocol, his pro calcitonin is improving and is down to 0.38 from 0.63. No fever or chills. Blood cultures have shown no growth. He remains on oral Augmentin. He remains on nebulized bronchodilators. On 03/25/2021 patient is seen in follow-up on [facility] care unit, he is currently on BiPAP which he has been wearing on and off as needed, and when he is sleeping. BiPAP settings are 12 and 5 and FiO2 is 50%, patient has been wearing 3 L of supplemental oxygen , and in between BiPAP, he is sleeping, but he is easily arousable, he states overall his breathing is improving, lung sounds reveal some bibasilar crackles, she denies any cough or significant phlegm production. No hemoptysis, no fever or chills. Today's chest x-ray is pending. His Lasix has been cut back to once daily oral dose of Lasix 40 mg, he is on Aldactone 25 mg daily, remains on amiodarone, and xarelto. Patient is maintaining negative fluid balance, he is in -1 L over last 24 hours, Labs reviewed, showing sodium of 141, potassium is 3.8, chloride is 102, CO2 34, B1 is 43, and creatinine of 1.24. Objective - Vital Signs Vital signs: Vital Signs Temp 98.4 F 03/25/21 12:15 Pulse 80 03/25/21 12:15 Resp 16 03/25/21 12:15 BP 105/52 03/25/21 12:15 Pulse Ox 94 L 03/25/21 12:15 Intake & Output 03/24/21 03/25/21 03/25/21 18:59 06:59 18:59 Intake Total 0 Output Total 1002 600 Balance -1002 -600 Weight 84.3 kg Intake: Oral 0 Output: Urine 1000 600 Stool 2 Other: Voiding Method Indwelling Catheter Indwelling Catheter Indwelling Catheter # Bowel Movements 1 - Exam GENERAL EXAM: 81-year-old white male, currently on BiPAP support as of 12 and 5 and FiO2 of 50% HEAD: Normocephalic/atraumatic. EYES: Normal reaction of pupils, equal size. Conjunctiva pink, sclera white. NOSE: Clear with pink turbinates. THROAT: No erythema or exudates. NECK: No masses, no JVD, no thyroid enlargement, no adenopathy. CHEST: No chest wall deformity. Symmetrical expansion. LUNGS: Equal air entry with diminished breath sounds and bibasilar crackles CVS: Irregular rate and rhythm, normal S1 and S2, no gallops, no murmurs, no rubs ABDOMEN: Soft, nontender. No hepatosplenomegaly, normal bowel sounds, no guarding or rigidity. EXTREMITIES: No clubbing, no edema, no cyanosis, 2+ pulses and upper and lower extremities. MUSCULOSKELETAL: Muscle strength and tone normal. SPINE: No scoliosis or deformity SKIN: No rashes CENTRAL NERVOUS SYSTEM: Alert and oriented -2. No focal deficits, tone is normal in all 4 extremities. PSYCHIATRIC: Alert and oriented -3. Appropriate affect. Intact judgment and i nsight. - Labs CBC & Chem 7: 03/23/21 05:24 03/25/21 11:17 Labs: Abnormal Lab Results - Last 24 Hours (Table) 03/25/21 Range/Units 11:17 Carbon Dioxide 34 H (22-30) mmol/L BUN 43 H (9-20) mg/dL Glucose 110 H (74-99) mg/dL AST 321 H (17-59) U/L ALT 259 H (4-49) U/L Total Protein 5.9 L (6.3-8.2) g/dL Albumin 2.9 L (3.5-5.0) g/dL Assessment and Plan Plan: assessment: #1. Acute hypoxic respiratory failure secondary to acute exacerbation of CHF, possibility of pneumonia is less likely although not completely excluded. Patient is covered with oral antibiotics in the form of Augmentin. Calcitonin level is improving #2. History of chronic alcohol abuse #3. History of chronic atrial fibrillation with acute rapid ventricular respon se. Currently better controlled #4. History of DVT #5. History of GERD/reflux #6. History of prior GI bleeding #7. History of hyperlipidemia #8. History of myocardial infarction #9. History of cardiomyopathy status post AICD placement #10. History of BPH #11. History of tobacco use rule out COPD #12. Left shoulder pain, orthopedic surgery is following, x-ray of the left shoulder is pending Plan: Today's chest x-ray has been reviewed showing worsening in the appearance of bibasilar densities Give an extra dose of IV Lasix 40 mg BIPAP support at 12 and 5 and FiO2 of 50% Follow daily labs, daily weight, electrolyte and renal profile Continue breathing treatments Continue nebulized bronchodilators Follow-up chest x-ray tomorrow I performed a history & physical examination of the patient and discussed their management with my nurse practitioner, Radha Nunes. I reviewed the nurse practitioner's note and agree with the documented findings and plan of care. Lung sounds are positive for diminished breath sounds. The findings and the impression was discussed with the patient. I attest to the documentation by the nurse practitioner. Time with Patient: Less than 30
--- NOTE | 2021-03-25 13:45 | XR ---
EXAMINATION TYPE: XR chest 1V portable DATE OF EXAM: 03/25/2021 COMPARISON: 03/22/2021 HISTORY: Shortness of breath FINDINGS: There are bilateral pleural effusions with cardiomegaly and bibasilar infiltrate. There is a diffuse interstitial pattern. Cardiac device seen. There is atherosclerotic change of the aorta. Use osteope justin. IMPRESSION: 1. Diffuse pleural-parenchymal changes are stable from prior exam correlate for CHF otherwise conside r pneumonia.
--- NOTE | 2021-03-25 13:56 | P.PN ---
Subjective This is a 1-year-old male past medical history ischemic cardiomyopathy status post AICD placement, coronary artery disease with chronic total occlusion of the RCA, chronic nicotine dependence, chronic alcohol intake (usually 1/2 fifth per day), atrial fibrillation, DVT, hyperlipidemia, valvular heart disease moderate tricuspid regurgitation and moderate mitral regurgitation, severe pulmonary hypertension. 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 Cardiology was initially consulted for an arrhythmia. Patient also had elevated troponin at 0.12. Patient presents emergency department with worsening dyspnea, left arm pain, right back pain. He was placed on BIPAP, admitted to the ICU for further monitoring. He had episodes of non sustained ventricular tachycardia, asymptomatic. He was placed on IV amiodarone drip. Echocardiogram revealed an EF of less than 20%, RV is severely enlarged, LA severely dilated, mild aortic regurgitation, mild mitral regurgitation and mild tricuspid regurgitation, mild pulmonary hypertension with RVSP of 45 mmHg. Previous echocardiogram with an EF 30-35%. He states that he was admitted at [facility] in [place] in 2010 due to cardiac arrest he was told that he had a weakened heart. He states he did undergo a cardiac catheterization was told that his blockages were not enough to fix. He also had a AICD placed after this. Records from [facility]: -12/06/2010, patient was found to be in V. fib arrest at home and was transported to [facility] ER. Patient was defibrillated and taken straight to the labor utilization superintendent. Cardiac catheterization revealed left main showed 20- 30% stenosis, LAD had a 40% long stenosis in the proximal segment, ramus intermedius branch showed mild luminal irregularities with 10-20% diffuse disease, circumflex artery had an ostial 50-60% stenosis and showed mild luminal irregularities in the mid and distal segments. RCA was 100% occluded with ejection fraction of 20%. No stenting was performed -Dual chamber AICD was placed in 12/12/2010 -Echocardiogram 12/13/2010 revealed global hypokinesis of the LV with an EF of 25-30%, mild to moderate mitral regurgitation, mild tricuspid regurgitation 03/23/2021: Patient underwent right heart cath with Dr. Villarreal, no significant elevation of his filling pressure, right ventricular systolic pressure is 42 with end diastolic 8 mmHg. Pulmonary artery systolic of 42, diastolic 10 with a mean of 26. Platelet Wedge pressure of 30, mean of 16- 18 mmHg. Mild pulmonary hypertension with preserved cardiac output. 03/25/2021: Patient seen and examined at bedside, no acute distress on BIPAP. Denies palpitations, chest pain, shortness of breath. His mental status is improved. Blood pressure 08/31/1952, heart rate 80, afebrile, maintaining oxygen saturations 94% on BiPAP. Laboratory data reviewed sodium 141, potassium 3.8, BUN 43, serum creatinine 1.2, AST 2020, ALT 259. Patient currently maintained on amiodarone 200 mg 3 times a day, statin held due to elevated liver enzymes, Lasix 40mg ddaily, hydralazine 20 mg 4 times a day, metoprolol titrate 25 mg daily, Xarelto 15 mg nightly, spironolactone 25 mg daily, sildenafil 20 mg 3 times a day . Patient with terminal urine output over the past 24 hours. GENERAL: In no acute distress. On BIPAP NECK: Supple. JVD has much improved LUNGS: Breath sounds has crackles bilateral bases. Respiration equal and unlab ored. No wheezes, rales or rhonchi. HEART: Irregular rate and rhythm, S1 and S2 heard.systolic ejection murmur at the apex EXTREMITIES: Normal range of motion, no edema. No clubbing or cyanosis. Pe ripheral pulses intact. NEURO: alert and oriented x 3. ASSESSMENT: Acute hypoxic respiratory failure secondary to congestive heart failure Acute Kidney Injury, Cardiorenal syndrome Severe pulmonary hypertension Elevated liver enzymes most likely liver congestion Acute systolic heart failure with reduced EF Non sustained ventricular tachycardia Coronary artery disease Ischemic cardiomyopathy status post AICD placement History of chronic alcohol abuse History of chronic atrial fibrillation on Xarelto History of DVT ETOH abuse Chronic nicotine dependence History of dyslipidemia Hypokalemia- improved Hypernatremia - improved Noncompliance PLAN: -Decrease amiodarone to 200mg daily -Patient without symptoms of angina, with acute on chronic kidney disease, and medical non-compliance we will not proceed with cardiac catheterization at this time -Continue Lasix 40mg daily, hydralazine 20mg QID, amiodarone,metoprolol succinate, sildenafil and spionolactone -Nephrology following, appreciate recs -Pulmonary following, appreciate recs -Further recommendations based on clinical course Objective - Vital Signs Vital signs: Vital Signs Temp 98.4 F 03/25/21 12:15 Pulse 80 03/25/21 12:15 Resp 16 03/25/21 12:15 BP 105/52 03/25/21 12:15 Pulse Ox 94 L 03/25/21 12:15 Intake & Output 03/24/21 03/25/21 03/25/21 18:59 06:59 18:59 Intake Total 0 Output Total 1002 600 Balance -1002 -600 Weight 84.3 kg Intake: Oral 0 Output: Urine 1000 600 Stool 2 Other: Voiding Method Indwelling Catheter Indwelling Catheter Indwelling Catheter # Bowel Movements 1 - Labs CBC & Chem 7: 03/23/21 05:24 03/25/21 11:17 Labs: Abnormal Lab Results - Last 24 Hours (Table) 03/25/21 Range/Units 11:17 Carbon Dioxide 34 H (22-30) mmol/L BUN 43 H (9-20) mg/dL Glucose 110 H (74-99) mg/dL AST 321 H (17-59) U/L ALT 259 H (4-49) U/L Total Protein 5.9 L (6.3-8.2) g/dL Albumin 2.9 L (3.5-5.0) g/dL
[2021-03-25] MEDS: DOBUTamine DRIP 500 MG in DEXTROSE/WATER 1 250ML.BAG IV SCH (15:26)
[2021-03-25] MEDS: FUROSEMIDE 100 MG in SODIUM CHLORIDE 0.9% 90 ML IV SCH ×2 (15:39→23:32)
[2021-03-25 16:18] LABS: Glucose,Whole Blood 101 mg/dL (75-99)
--- NOTE | 2021-03-25 20:47 | P.PN ---
Subjective This is a pleasant 81 years old male with multiple medical problems including chronic A. fib, ABUSE, history of DVT and GI bleed, cardiomyopathy status post AICD. Currently is been treated for fluid overload secondary to acute systolic CHF with ejection fraction less than 20% associated with interstitial pneumonia with elevated pro-calcitonin but improving on Augmentin. He is currently kept on Lasix 60 mg IV twice daily, although creatinine slightly worsened up to 2 today however his chest x-ray still showing evidence of CHF. Dobutamine is ordered. Patient also with acute hypoxic respiratory failure, which is mild on 3 L/m of oxygen. Several consultants on the case with the steamfitter apprentice, appraiser real estate and tilting saw operator. 03/22/2021 Patient remains short of breath and having breathing difficulty even at rest where he states most of his time in the bed. No chest pain or coughing. He is saturating 100% on 4 L oxygen. A febrile He is stable. Labs showing creatinine at 2.1 dose to yesterday. Liver enzymes trending down, troponin is slightly up to 1.8. Because of this cardiology started the patient on heparin drip and possible ca rdiac cath. His pneumonia is improving while on Augmentin as there is trending down bothcalcitonin he remains on Augmentin, dobutamine drip at 5, Lasix IV 60 mg twice a day. Heparin drip instead of the Xarelto Ejection fraction less than 20% Patient is going to ECF upon discharge 03/23/2021 Patient breathing the same or slightly better. No significant coughing or chest pain. No leg swelling or basilic dictation. He is hemodynamically stable and saturating high 90s on 3 L oxygen via nasal ca nnula. No more fever. Creatinine trended down to 1.5, sodium went up to 147. Because of this Lasix 60 mg was switched from twice a day down to once daily. Patient remains on Augmentin, dobutamine at drip and heparin drip/Xarelto on hold for possible cardiac cath today Consultants on the case including tilting saw operator, steamfitter apprentice and pulmonary Patient will need to go to subacute rehab upon discharge 03/24/2021 Patient still with some dyspnea and no leg edema is still on 4-5 L of oxygen to keep saturation in 90s. No fever. Patient himself does not feels improvement in his breathing His creatinine came back to normal at 1.1. His pro-calcitonin is trending down while he is on Augmentin. His continued on Lasix and Xarelto Several consultants on the case including cardiology and pulmonary and nephrology I discussed the CODE STATUS with the patient today and he confirmed to me he wants to be full code. Patient has capacity to make medical decision per my evaluation Objective - Vital Signs Vital signs: Vital Signs Temp 97.3 F L 03/24/21 15:33 Pulse 91 03/24/21 16:23 Resp 20 03/24/21 15:33 BP 124/64 03/24/21 15:33 Pulse Ox 96 03/24/21 15:33 Intake & Output 03/23/21 03/24/21 03/24/21 18:59 06:59 18:59 Intake Total 550 0 Output Total 2358 182 6542 Balance -1000 -520 -1002 Weight 84.5 kg Intake: IV 10 Oral 540 0 Output: Urine 8434 333 6817 Stool 2 Other: Voiding Method Indwelling Catheter Indwelling Catheter Indwelling Catheter # Bowel Movements 1 - Exam -GENERAL: The patient is alert and oriented x3, not in any acute distress. Well developed, well nourished. Patient is weak and lethargic HEENT: Pupils are round and equally reacting to light. EOMI. No scleral icterus. No conjunctival pallor. Normocephalic, atraumatic. No pharyngeal erythema. No thyromegaly. CARDIOVASCULAR: S1 and S2 present. No murmurs, rubs, or gallops. -PULMONARY: Chest is clear to auscultation, no wheezing or crackles. Bilateral basal crepitation ABDOMEN: Soft, nontender, nondistended, normoactive bowel sounds. No palpable organomegaly. MUSCULOSKELETAL: No joint swelling or deformity. -EXTREMITIES: No cyanosis, clubbing,. Bilateral leg edema NEUROLOGICAL: Gross neurological examination did not reveal any focal deficits. SKIN: No rashes. no petechiae. - Labs CBC & Chem 7: 03/23/21 05:24 03/25/21 11:17 Labs: Abnormal Lab Results - Last 24 Hours (Table) 03/23/21 03/24/21 03/24/21 Range/Units 18:28 07:25 07:25 Potassium 3.2 L 3.3 L (3.5-5.1) mmol/L Carbon Dioxide 31 H (22-30) mmol/L BUN 44 H (9-20) mg/dL Glucose 124 H (74-99) mg/dL Delta Bilirubin 0.9 H (0.0-0.2) mg/dL AST 166 H 165 H (17-59) U/L ALT 208 H 212 H (4-49) U/L Total Protein 5.9 L 5.9 L (6.3-8.2) g/dL Albumin 3.0 L 3.0 L (3.5-5.0) g/dL Assessment and Plan Assessment: Acute and chronic systolic CHF with ejection fraction less than 20%, status post AICD Acute hypoxic respiratory failure Acute kidney injury secondary to cardiorenal syndrome non-STEMI Recent fall Nonsustained ventricular tachycardia Elevated liver enzymes secondary to congested liver improving with Lasix History of DVT Chronic atrial fibrillation and symmetrical. History Of alcohol abuse History Of GI bleed Plan: This is a pleasant 81 years old male who presents with CHF and pneumonia. Continue with Lasix and dobutamine Monitor input and output. Monitored creatinine and electrolytes Hold heparin drip/subtotal for possible cardiac cath per Nephrology and per cardiology teams Labs and medication were reviewed.. Continue same treatment. Continue with symptomatic treatment. Resume home medication. Monitor lytes and vitals. DVT and GI prophylaxis. Further recommendationsas per clinical course of the patient DVT prophylaxis: heparin GI prophylaxis: Pepcid Physical therapy: subacute rehab Prognosis is guarded
--- NOTE | 2021-03-25 20:50 | P.PN ---
Subjective This is a pleasant 81 years old male with multiple medical problems including chronic A. fib, ABUSE, history of DVT and GI bleed, cardiomyopathy status post AICD. Currently is been treated for fluid overload secondary to acute systolic CHF with ejection fraction less than 20% associated with interstitial pneumonia with elevated pro-calcitonin but improving on Augmentin. He is currently kept on Lasix 60 mg IV twice daily, although creatinine slightly worsened up to 2 today however his chest x-ray still showing evidence of CHF. Dobutamine is ordered. Patient also with acute hypoxic respiratory failure, which is mild on 3 L/m of oxygen. Several consultants on the case with the chief security and safety officer, victims advocate clerk/specialist and hair salon manager. 03/22/2021 Patient remains short of breath and having breathing difficulty even at rest where he states most of his time in the bed. No chest pain or coughing. He is saturating 100% on 4 L oxygen. A febrile He is stable. Labs showing creatinine at 2.1 dose to yesterday. Liver enzymes trending down, troponin is slightly up to 1.8. Because of this cardiology started the patient on heparin drip and possible ca rdiac cath. His pneumonia is improving while on Augmentin as there is trending down bothcalcitonin he remains on Augmentin, dobutamine drip at 5, Lasix IV 60 mg twice a day. Heparin drip instead of the Xarelto Ejection fraction less than 20% Patient is going to ECF upon discharge 03/23/2021 Patient breathing the same or slightly better. No significant coughing or chest pain. No leg swelling or basilic dictation. He is hemodynamically stable and saturating high 90s on 3 L oxygen via nasal ca nnula. No more fever. Creatinine trended down to 1.5, sodium went up to 147. Because of this Lasix 60 mg was switched from twice a day down to once daily. Patient remains on Augmentin, dobutamine at drip and heparin drip/Xarelto on hold for possible cardiac cath today Consultants on the case including hair salon manager, chief security and safety officer and pulmonary Patient will need to go to subacute rehab upon discharge 03/24/2021 Patient still with some dyspnea and no leg edema is still on 4-5 L of oxygen to keep saturation in 90s. No fever. Patient himself does not feels improvement in his breathing His creatinine came back to normal at 1.1. His pro-calcitonin is trending down while he is on Augmentin. His continued on Lasix and Xarelto Several consultants on the case including cardiology and pulmonary and nephrology I discussed the CODE STATUS with the patient today and he confirmed to me he wants to be full code. Patient has capacity to make medical decision per my evaluation 03/25/2021 Patient is a breathing is worse today need and BiPAP. His chest x-ray showing more congestion especially in the lung bases with more fluid in the middle fissures. Also he has worsening liver enzymes and chief security and safety officer for his amiodarone 200 mg 3 times a day down to once daily. His creatinine is stable and within the reference range at 1.2 Because of this patient was moved to the ICU, he was started on dobutamine drip 5 g per KG per minute. As well as Lasix drip at 10 mg per hour Patient to continue ON Augmentin and Xarelto as well Objective - Vital Signs Vital signs: Vital Signs Temp 98.4 F 03/25/21 12:15 Pulse 80 03/25/21 12:15 Resp 16 03/25/21 12:15 BP 105/52 03/25/21 12:15 Pulse Ox 94 L 03/25/21 12:15 Intake & Output 03/24/21 03/25/21 03/25/21 18:59 06:59 18:59 Intake Total 0 Output Total 1002 600 Balance -1002 -600 Weight 84.3 kg Intake: Oral 0 Output: Urine 1000 600 Stool 2 Other: Voiding Method Indwelling Catheter Indwelling Catheter Indwelling Catheter # Bowel Movements 1 - Exam -GENERAL: The patient is alert and oriented x3, not in any acute distress. Well developed, well nourished. Patient is weak and lethargic HEENT: Pupils are round and equally reacting to light. EOMI. No scleral icterus. No conjunctival pallor. Normocephalic, atraumatic. No pharyngeal erythema. No thyromegaly. CARDIOVASCULAR: S1 and S2 present. No murmurs, rubs, or gallops. -PULMONARY: Chest is clear to auscultation, no wheezing or crackles. Bilateral basal crepitation ABDOMEN: Soft, nontender, nondistended, normoactive bowel sounds. No palpable organomegaly. MUSCULOSKELETAL: No joint swelling or deformity. -EXTREMITIES: No cyanosis, clubbing,. Bilateral leg edema NEUROLOGICAL: Gross neurological examination did not reveal any focal deficits. SKIN: No rashes. no petechiae. - Labs CBC & Chem 7: 03/23/21 05:24 03/25/21 11:17 Labs: Abnormal Lab Results - Last 24 Hours (Table) 03/25/21 Range/Units 11:17 Carbon Dioxide 34 H (22-30) mmol/L BUN 43 H (9-20) mg/dL Glucose 110 H (74-99) mg/dL AST 321 H (17-59) U/L ALT 259 H (4-49) U/L Total Protein 5.9 L (6.3-8.2) g/dL Albumin 2.9 L (3.5-5.0) g/dL Assessment and Plan Assessment: Acute and chronic systolic CHF with ejection fraction less than 20%, status post AICD Acute hypoxic respiratory failure Acute kidney injury secondary to cardiorenal syndrome. Improving Amiodarone induced toxicity non-STEMI, not a candidate for cardiac cath per Maritime Engineer due to his history of noncompliance and complex multiple comorbidities Recent fall Nonsustained ventricular tachycardia Elevated liver enzymes secondary to congested liver improving with Lasix History of DVT Chronic atrial fibrillation and symmetrical. History Of alcohol abuse History Of GI bleed Plan: This is a pleasant 81 years old male who presents with CHF and pneumonia. Continue with Lasix and dobutamine drips. Keep myself patient the ICU Monitor input and output. Monitored creatinine and electrolytes Hold heparin drip/subtotal for continue with desired to undergo Augmentin Several consultants on the case, hair salon manager, pulmonary/critical care and chief security and safety officer Labs and medication were reviewed.. Continue same treatment. Continue with symptomatic treatment. Resume home medication. Monitor lytes and vitals. DVT and GI prophylaxis. Further recommendations as per clinical course of the abdiaziz ent DVT prophylaxis: heparin GI prophylaxis: Pepcid Physical therapy: subacute rehab Prognosis is guarded
--- NOTE | 2021-03-25 20:52 | PN ---
PROGRESS NOTE Patient was seen this morning for followup for acute kidney injury, mostly cardiorenal. The patient has been diuresed. This morning patient was sitting up in bed. He was off BiPAP. Denied any significant complaints. PHYSICAL EXAMINATION: Blood pressure this morning was on 90/55, heart rate of 80 per minute. The patient is afebrile. Examination of the heart S1, S2. Examination of the lungs, decreased breath sounds at bases. Abdomen is soft, nontender. Examination of lower extremities shows edema 1+ bilaterally. PANTOGRAPH WATCHER exam grossly intact. LABS: From today showed sodium 141, potassium 3.8, chloride 102, CO2 is 34, BUN 43, creatinine 1.24. ASSESSMENT: 1. Acute kidney injury, mostly cardiorenal, currently improving. 2. Volume overload. The patient is being diuresed. Lasix is p.o. which needs to be increased. 3. Acute hypoxic respiratory failure associated with congestive heart failure, volume overload. 4. Cardiomyopathy, ejection fraction 30-35%. 5. Status post cardiac catheterization on March 23 which showed preserved ejection fraction, mild pulmonary hypertension. PLAN: Continue to diurese patient. This morning he is comfortable. Follow up on chest x- ray. MMODL / IJN: [id number] /
[2021-03-25] MEDS: TAMSULOSIN 0.4 MG CAP.ER.24H PO SCH (21:02)
[2021-03-25] MEDS: allopurinoL 100 MG TAB PO SCH (21:02)
[2021-03-25] MEDS: FAMOTIDINE 20 MG TAB PO SCH (21:02)
[2021-03-25] MEDS: RIVAROXABAN 15 MG TAB PO SCH (21:02)
[2021-03-26] MEDS: FUROSEMIDE 100 MG in SODIUM CHLORIDE 0.9% 90 ML IV SCH ×4 (01:47→22:33)
[2021-03-26 04:02] LABS: Albumin 2.6 g/dL (3.5-5.0); Calcium 8.4 mg/dL (8.4-10.2); Magnesium 1.6 mg/dL (1.6-2.3); Potassium 3.5 mmol/L (3.5-5.1); Total Bilirubin 1.4 mg/dL (0.2-1.3); Total Protein 5.6 g/dL (6.3-8.2)
[2021-03-26 04:18] LABS: Anisocytosis Slight; Basophils % (A) 0 %; Eosinophils % (A) 0 %; HCT 29.9 % (39.0-53.0); HGB 9.3 gm/dL (13.0-17.5); Hypochromasia Moderate; Lymphocytes # (A) 0.9 k/uL (1.0-4.8); Lymphocytes % (A) 13 %; MCH 30.5 pg (25.0-35.0); MCHC 31.1 g/dL (31.0-37.0); MCV 97.8 fL (80.0-100.0); Macrocytosis Slight; Mean Platelet Volume 8.1; Monocytes # (A) 0.3 k/uL (0-1.0); Monocytes % (A) 5 %; Neutrophils # (A) 5.7 k/uL (1.3-7.7); Neutrophils % (A) 80 %; Platelet Count 230 k/uL (150-450); RBC 3.06 m/uL (4.30-5.90); RDW 16.2 % (11.5-15.5); WBC 7.1 k/uL (3.8-10.6)
[2021-03-26] MEDS ORDERED: Magnesium Replacement Protocol 1 EACH MISC MISCELLANE PRN (04:46)
[2021-03-26] MEDS: POTASSIUM CHLORIDE ER 20 MEQ TAB.ER PO SCH ×2 (05:22→06:53)
[2021-03-26] MEDS: MAGNESIUM SULFATE-D5W PMX 1 GM in DEXTROSE/WATER 1 100ML.BAG IVPB SCH ×2 (05:22→06:52)
[2021-03-26] MEDS: LEVOTHYROXINE 50 MCG TAB PO SCH (05:32)
[2021-03-26] MEDS: IPRATROPIUM-ALBUTEROL 3 ML NEB INHALATION SCH ×4 (07:09→19:43)
--- NOTE | 2021-03-26 07:13 | XR ---
EXAMINATION TYPE: XR chest 1V DATE OF EXAM: 03/26/2021 COMPARISON: 03/25/2021 HISTORY: Shortness of breath TECHNIQUE: Single frontal view of the chest is obtained. FINDINGS: There is a 2-lead cardiac pacemaker unchanged in position. There is marked pulmonary vascular congestion and interstitial edema and moderate bilateral pleural e ffusions all unchanged compared to the prior study. There is no pneumothorax. The osseous structures are grossly intact IMPRESSION: No change in the acute cardiopulmonary disease most consistent with marked CHF.
[2021-03-26] MEDS: CYANOCOBALAMIN 500 MCG TAB PO SCH (08:08)
[2021-03-26] MEDS: SPIRONOLACTONE 25 MG TAB PO SCH (08:08)
[2021-03-26] MEDS: AMIODARONE 200 MG TAB PO SCH (08:08)
[2021-03-26] MEDS: METOPROLOL SUCCINATE (ER) 25 MG TAB.ER.24H PO SCH (08:08)
[2021-03-26] MEDS: MENTHOL-ZINC OXIDE OINT 113 GM TUBE TOPICAL SCH (09:19)
[2021-03-26] MEDS: AMOXIC-POT CLAV 875-125MG 1 EACH TAB PO SCH ×2 (09:19→22:35)
[2021-03-26] MEDS: hydrALAZINE HCL 10 MG TAB PO SCH ×4 (09:19→22:47)
[2021-03-26] MEDS: SILDENAFIL 20 MG TAB PO SCH ×3 (09:19→22:35)
[2021-03-26] MEDS: ESCITALOPRAM 10 MG TAB PO SCH (09:19)
--- NOTE | 2021-03-26 09:24 | P.PN ---
Subjective This is a 81-year-old male past medical history ischemic cardiomyopathy status post AICD placement, coronary artery disease with chronic total occlusion of the RCA, chronic nicotine dependence, chronic alcohol intake (usually 1/2 fifth per day), atrial fibrillation, DVT, hyperlipidemia, valvular heart disease moderate tricuspid regurgitation and moderate mitral regurgitation, severe pulmonary hypertension. He does not follow regularly with a activities officer. Cardiology was initially consulted for an arrhythmia. Patient also had elevated troponin at 0.12. Patient presents emergency department with worsening dyspnea, left arm pain, right back pain. He was placed on BIPAP, admitted to the ICU for further monitoring. He had episodes of non sustained ventricular tachycardia, asymptomatic. He was placed on IV amiodarone drip. Echocardiogram revealed an EF of less than 20%, RV is severely enlarged, LA severely dilated, mild aortic regurgitation, mild mitral regurgitation and mild tricuspid regurgitation, mild pulmonary hypertension with RVSP of 45 mmHg. Previous echocardiogram with an EF 30-35%. He states that he was admitted at [facility] in [place] in 2010 due to cardiac arrest he was told that he had a weakened heart. He states he did undergo a cardiac catheterization was told that his blockages were not enough to fix. He also had a AICD placed after this. Records from [facility]: -12/06/2010, patient was found to be in V. fib arrest at home and was transported to [facility] ER. Patient was defibrillated and taken straight to the catheterization laboratory technician. Cardiac catheterization revealed left main showed 20- 30% stenosis, LAD had a 40% long stenosis in the proximal segment, ramus intermedius branch showed mild luminal irregularities with 10-20% diffuse disease, circumflex artery had an ostial 50-60% stenosis and showed mild luminal irregularities in the mid and distal segments. RCA was 100% occluded with ejection fraction of 20%. No stenting was performed -Dual chamber AICD was placed in 12/12/2010 -Echocardiogram 12/13/2010 revealed global hypokinesis of the LV with an EF of 25-30%, mild to moderate mitral regurgitation, mild tricuspid regurgitation 03/23/2021: Patient underwent right heart cath with Dr. Villarreal, no significant elevation of his filling pressure, right ventricular systolic pressure is 42 with end diastolic 8 mmHg. Pulmonary artery systolic of 42, diastolic 10 with a mean of 26. Platelet Wedge pressure of 30, mean of 16- 18 mmHg. Mild pulmonary hypertension with preserved cardiac output. 03/25/2021: Patient seen and examined at bedside, no acute distress on BIPAP. Denies palpitations, chest pain, shortness of breath. His mental status is improved. Blood pressure 08/31/1952, heart rate 80, afebrile, maintaining oxygen saturations 94% on BiPAP. Laboratory data reviewed sodium 141, potassium 3.8, BUN 43, serum creatinine 1.2, AST 2020, ALT 259. Patient currently maintained on amiodarone 200 mg 3 times a day, statin held due to elevated liver enzymes, Lasix 40mg ddaily, hydralazine 20 mg 4 times a day, metoprolol titrate 25 mg daily, Xarelto 15 mg nightly, spironolactone 25 mg daily, sildenafil 20 mg 3 times a day . Patient with terminal urine output over the past 24 hours. 03/26 Patient seen and examined in the ICU. Patient was transferred yesterday secondary to increased shortness breath and some lethargy. Chest x-ray showed worsened volume overload and therefore patient was placed on dobutamine drip at 5 as well as a Lasix drip. Patient has had a good urine output with approximately 100 mL per hour and creatinine remained stable this morning at 1.2. He states he feels somewhat better today. Blood pressures low 100s however appears stable. Liver enzymes mildly elevated however we will continue amiodarone given VT on presentation. No chest pain or pressure. GENERAL: In no acute distress. On nasal canula NECK: Supple. +JVD LUNGS: Breath sounds has crackles bilateral bases. Respiration equal and unlabored. No wheezes, rales or rhonchi. HEART: Irregular rate and rhythm, S1 and S2 heard.systolic ejection murmur at the apex EXTREMITIES: Normal range of motion, no edema. No clubbing or cyanosis. Peripheral pulses intact. NEURO: alert and oriented x 3. ASSESSMENT: Acute hypoxic respiratory failure secondary to congestive heart failure Acute Kidney Injury, Cardiorenal syndrome Severe pulmonary hypertension Elevated liver enzymes most likely liver congestion Acute systolic heart failure with reduced EF Non sustained ventricular tachycardia Coronary artery disease Ischemic cardiomyopathy status post AICD placement History of chronic alcohol abuse History of chronic atrial fibrillation on Xarelto History of DVT ETOH abuse Chronic nicotine dependence History of dyslipidemia Hypokalemia- improved Hypernatremia - improved Noncompliance PLAN: -Continue amiodarone to 200mg daily. Risk of VT felt greater than poissible worsening of liver function. -Patient without symptoms of angina, with acute on chronic kidney disease, and medical non-compliance. No left heart catheterization at this time -Acute kidney injury has improved. Patient with respiratory distress yesterday and is doing much better on dobutamine and Lasix drip. Chest x-ray showing volume overload and needs more diuresis. Agree with dobutamine however cardiac output per right heart catheterization previously was low end of normal. Continue with current regimen. Prognosis guarded. Objective - Vital Signs Vital signs: Vital Signs Temp 98.4 F 03/26/21 08:00 Pulse 78 03/26/21 08:00 Resp 16 03/26/21 08:00 BP 112/61 03/26/21 08:00 Pulse Ox 98 03/26/21 08:00 Intake & Output 03/25/21 03/26/21 03/26/21 18:59 06:59 18:59 Intake Total 127.8 1230.033 165.2 Output Total 1175 2160 335 Balance -1047.2 -929.967 -169.8 Weight 85.7 kg Intake: IV 127.8 511.2 65.2 DOBUTamine DRIP 500 mg In 37.8 151.2 25.2 Dextrose/Water 1 250ml. bag @ 5 MCG/KG/MIN 12.645 mls/hr IV .[id number] ROBERT Rx#:[id number] Furosemide 100 mg In 30 120 20 Sodium Chloride 0.9% 90 ml @ 10 MG/HR 10 mls/hr IV .Q10H ROBERT Rx#: [id number] Sodium Chloride 0.9% 1, 60 240 20 000 ml @ 20 mls/hr IV . Q24H ROBERT Rx#:[id number] Intake, IV Titration 178.833 100 Amount Furosemide 100 mg In 78.833 Sodium Chloride 0.9% 90 ml @ 10 MG/HR 10 mls/hr IV .Q10H ROBERT Rx#: [id number] Magnesium Sulfate-D5w Pmx 100 100 1 gm In Dextrose/Water 1 100ml.bag @ 100 mls/hr IVPB Q1H ROBERT Rx#: [id number] Oral 540 Output: Urine 1175 2160 335 Other: Voiding Method Indwelling Catheter Indwelling Catheter - Labs CBC & Chem 7: 03/26/21 03:33 03/26/21 03:33 Labs: Abnormal Lab Results - Last 24 Hours (Table) 03/24/21 03/25/21 03/25/21 Range/Units 07:25 11:17 16:17 RBC (4.30-5.90) m/uL Hgb (13.0-17.5) gm/dL Hct (39.0-53.0) % RDW (11.5-15.5) % Lymphocytes # (1.0-4.8) k/uL Carbon Dioxide 34 H (22-30) mmol/L BUN 43 H (9-20) mg/dL Glucose 110 H (74-99) mg/dL POC Glucose (mg/dL) 101 H (75-99) mg/dL Total Bilirubin (0.2-1.3) mg/dL AST 321 H (17-59) U/L ALT 259 H (4-49) U/L Total Protein 5.9 L (6.3-8.2) g/dL Albumin 2.9 L (3.5-5.0) g/dL Procalcitonin 0.18 H (0.02-0.09) ng/mL 03/26/21 03/26/21 Range/Units 03:33 03:33 RBC 3.06 L (4.30-5.90) m/uL Hgb 9.3 L (13.0-17.5) gm/dL Hct 29.9 L (39.0-53.0) % RDW 16.2 H (11.5-15.5) % Lymphocytes # 0.9 L (1.0-4.8) k/uL Carbon Dioxide 35 H (22-30) mmol/L BUN 38 H (9-20) mg/dL Glucose 101 H (74-99) mg/dL POC Glucose (mg/dL) (75-99) mg/dL Total Bilirubin 1.4 H (0.2-1.3) mg/dL AST 268 H (17-59) U/L ALT 238 H (4-49) U/L Total Protein 5.6 L (6.3-8.2) g/dL Albumin 2.6 L (3.5-5.0) g/dL Procalcitonin (0.02-0.09) ng/mL
--- NOTE | 2021-03-26 10:05 | P.PN ---
Subjective Progress Note Date: 03/26/21 81-year-old male, who is admitted to the hospital, on March 16. He came into the emergency room with complaints of shortness of breath. He was brought in by EMS. He apparently is been having difficulty with breathing for some time. The patient is a very poor historian. The patient apparently did not admit to any chest pain or chest pressure. There is no cough, fever, chills, nausea, vomiting, or diarrhea. Currently, the patient is on BiPAP, with settings of 14/5 and 40%. He is receiving amiodarone at 1 mg/m, saline at 130 mL an hour, and a blood gas will be done. The patient has a history of chronic hypoxemic respiratory failure, chronic alcohol abuse, atrial fibrillation, DVT, gastroesop hageal reflux disease, gastrointestinal bleed, myocardial infarction, hyperlipidemia, status post AICD placement, and BPH. Laboratory data includes a white count 11.4, hemoglobin 10.2, hematocrit 32.9, and platelet count 216,000. Blood gases show pO2 106, pCO2 46, with a normal pH. Sodium 138, potassium 4.7, chlorides 102, CO2 29, anion gap 7, BUN 34, creatinine 1.79. AST was 592, and ALT was 290. Urine was negative. The patient's troponin level was 0.127 and the N-terminal proBNP was nearly 11,000. The TSH was normal. Chest x-ray in my opinion, shows cardiomegaly, changes of vascular decompensation. Small effusions and fluid in the minor fissure as well. On 03/18/2001 patient seen in follow-up in the intensive care unit, this morning he is on 3 L of oxygen, his pulse ox is 94%, he only for his BiPAP very briefly for a few minutes last night, and then asked for her to be removed, BiPAP settings were 14/5 and FiO2 of 40%. This morning he appears to be in no acute distress, currently on 0.9 normal saline at 20 ML per hour, and amiodarone is currently off. She remains in atrial fibrillation the rate is controlled at 74 BPM, overall he is looking better and feeling better. he is awake and alert, he is answering questions appropriately, breathing comfortably. No complaint of chest pain, no cough, he remains on breathing treatments, and antibiotics in the form of Zosyn. blood culture showed no growth, he is afebrile this morning, T- max in the last 24 hours was 99.9. today's labs have been reviewed, showing white blood cell count of 8, hemoglobin of 9.3, electrolytes within normal limits, B1 is 44, creatinine is 2.05. His repeat proBNP came back at 31,005 100, his pro calcitonin level was elevated at 1.14.today's follow-up chest x-ray shows interval worsening of right mid and lower lung zone airspace disease. There is left basilar pleural parenchymal disease appears to be stable compared to yesterday's exam. On 03/19/2021 patient seen in follow-up on selective care unit, he is awake and alert, in no acute distress, resting in bed, he is on 3 L of oxygen pulse ox is 96%, breathing comfortably, afebrile, did not require BiPAP support last night. Vital signs have been stable, no complaints of worsening dyspnea or cough. His last chest x-ray yesterday showed some mild interval worsening of right lung airspace disease. Patient remains on Zosyn for antibiotic coverage, he also remains on oral Lasix 80 mg twice daily, he is in -835 mL fluid balance, his weight is down by 4.7 kg in the last 24 hours. Renal profile slightly improved on today's labs, nephrology is following. His liver enzymes are improving, his white blood cell count is normal and significantly improved since admission. He seen [facility] for his left shoulder pain, x-ray of the left shoulder is pending. On 03/21/2021 patient seen in follow-up on selective care unit. He is awake and alert, oriented 3, he is currently sitting up in the recliner, does not appear to be in any acute distress, however he does have exertional dyspnea with any little exertion. He is currently on 3 L of oxygen pulse ox of 100%. Afebrile, only occasional cough, no hemoptysis, no chest pain., However his follow-up chest x-ray shows pulmonary vessel congestion, and some blunting of the costophrenic angles consistent with small bilateral pleural effusions. Lung exam reveals diffuse crackles, patient has positive JVD. He has been on Lasix 60 mg every 12 hours, over his diuresis has been suboptimal, and he is only modestly in negative fluid balance, approximately -300 mL over last 24 hours. His weight is has actually trended up since yesterday, and patient is positive 3 kg. Today's labs have been reviewed, his renal function continues to worsen, his BUN today is up to 64, creatinine is 2.01. Potassium is 3.3, this has been replaced per protocol, his pro calcitonin is improving and is down to 0.38 from 0.63. No fever or chills. Blood cultures have shown no growth. He remains on oral Augmentin. He remains on nebulized bronchodilators. On 03/25/2021 patient is seen in follow-up on [facility] care unit, he is currently on BiPAP which he has been wearing on and off as needed, and when he is sleeping. BiPAP settings are 12 and 5 and FiO2 is 50%, patient has been wearing 3 L of supplemental oxygen , and in between BiPAP, he is sleeping, but he is easily arousable, he states overall his breathing is improving, lung sounds reveal some bibasilar crackles, she denies any cough or significant phlegm production. No hemoptysis, no fever or chills. Today's chest x-ray is pending. His Lasix has been cut back to once daily oral dose of Lasix 40 mg, he is on Aldactone 25 mg daily, remains on amiodarone, and xarelto. Patient is maintaining negative fluid balance, he is in -1 L over last 24 hours, Labs reviewed, showing sodium of 141, potassium is 3.8, chloride is 102, CO2 34, B1 is 43, and creatinine of 1.24. 2020, the patient is already transferred to the intensive care unit. I saw him on a medical floor yesterday and he was having worsening shortness of breath and he was becoming more lethargic. Immediately was placed on a BiPAP at a pressure of 12/5 cm of water. Following that, the patient got transferred to the intensive care unit where he was restarted back on dobutamine drip which is currently running at 5 mg/kg per minute. He was also started on Lasix drip at 10 mg an hour. He is feeling much better on today's evaluation. He is on 5 L of oxygen by nasal cannula. He urine output is in order of 100 mL an hour. He is able to communicate. He is off the BiPAP this morning. Chest x-ray still showing pulmonary edema along with a left-sided pleural effusion and a right- sided pleural effusion and the patient has positive JVDs. On his blood work, his creatinine is at 1.2 and BUN is at 38. Electrolytes showed potassium level of 3.5 that needs to be replaced. His proBNP level was thousand 900. LFTs are also abnormal consistent with hepatic dysfunction related to cardiomyopathy. Hemoglobin is at 9.3 which is slightly lower compared to yesterday. No evidence of any bleed. The patient is communicating. His cardiac rhythm is atrial fibrillation. He remains on Xarelto. He also is on amiodarone. He did have a few runs of nonsustained V. tach few days ago, none for now. In terms of possible pneumonia/aspiration, and cover this patient with Augmentin. Cultures and the blood have been negative. He is currently in the intensive care unit Objective - Vital Signs Vital signs: Vital Signs Temp 98.4 F 03/26/21 08:00 Pulse 80 03/26/21 09:00 Resp 16 03/26/21 09:00 BP 106/53 03/26/21 09:00 Pulse Ox 99 03/26/21 09:00 Intake & Output 03/25/21 03/26/21 03/26/21 18:59 06:59 18:59 Intake Total 127.8 1230.033 295.967 Output Total 1175 2160 385 Balance -1047.2 -929.967 -89.033 Weight 85.7 kg Intake: IV 127.8 511.2 97.8 DOBUTamine DRIP 500 mg In 37.8 151.2 37.8 Dextrose/Water 1 250ml. bag @ 5 MCG/KG/MIN 12.645 mls/hr IV .[id number] ROBERT Rx#:[id number] Furosemide 100 mg In 30 120 30 Sodium Chloride 0.9% 90 ml @ 10 MG/HR 10 mls/hr IV .Q10H ROBERT Rx#: [id number] Sodium Chloride 0.9% 1, 60 240 30 000 ml @ 20 mls/hr IV . Q24H ROBERT Rx#:[id number] Intake, IV Titration 178.833 198.167 Amount Furosemide 100 mg In 78.833 98.167 Sodium Chloride 0.9% 90 ml @ 10 MG/HR 10 mls/hr IV .Q10H ROBERT Rx#: [id number] Magnesium Sulfate-D5w Pmx 100 100 1 gm In Dextrose/Water 1 100ml.bag @ 100 mls/hr IVPB Q1H ROBERT Rx#: [id number] Oral 540 Output: Urine 1175 2160 385 Other: Voiding Method Indwelling Catheter Indwelling Catheter Indwelling Catheter - Exam GENERAL EXAM: Alert, very pleasant, 81-year-old white male, on 5 L of oxygen and the pulse ox of 95%, currently mild degree of respiratory distress even at rest. HEAD: Normocephalic/atraumatic. EYES: Normal reaction of pupils, equal size. Conjunctiva pink, sclera white. NOSE: Clear with pink turbinates. THROAT: No erythema or exudates. NECK: No masses, positive JVD, no thyroid enlargement, no adenopathy. CHEST: No chest wall deformity. Symmetrical expansion. LUNGS: Equal air entry with no crackles, wheeze, rhonchi or dullness. CVS: Irregular rate and rhythm, normal S1 and S2, no gallops, no murmurs, no rubs ABDOMEN: Soft, nontender. No hepatosplenomegaly, normal bowel sounds, no guarding or rigidity. EXTREMITIES: No clubbing, no edema, no cyanosis, 2+ pulses and upper and lower extremities. MUSCULOSKELETAL: Muscle strength and tone normal. SPINE: No scoliosis or deformity SKIN: No rashes CENTRAL NERVOUS SYSTEM: Alert and oriented -3. No focal deficits, tone is normal in all 4 extremities. PSYCHIATRIC: Alert and oriented -3. Appropriate affect. Intact judgment and insight. - Labs CBC & Chem 7: 03/26/21 03:33 03/26/21 03:33 Labs: Abnormal Lab Results - Last 24 Hours (Table) 03/24/21 03/25/21 03/25/21 Range/Units 07:25 11:17 16:17 RBC (4.30-5.90) m/uL Hgb (13.0-17.5) gm/dL Hct (39.0-53.0) % RDW (11.5-15.5) % Lymphocytes # (1.0-4.8) k/uL Carbon Dioxide 34 H (22-30) mmol/L BUN 43 H (9-20) mg/dL Glucose 110 H (74-99) mg/dL POC Glucose (mg/dL) 101 H (75-99) mg/dL Total Bilirubin (0.2-1.3) mg/dL AST 321 H (17-59) U/L ALT 259 H (4-49) U/L Total Protein 5.9 L (6.3-8.2) g/dL Albumin 2.9 L (3.5-5.0) g/dL Procalcitonin 0.18 H (0.02-0.09) ng/mL 03/26/21 03/26/21 Range/Units 03:33 03:33 RBC 3.06 L (4.30-5.90) m/uL Hgb 9.3 L (13.0-17.5) gm/dL Hct 29.9 L (39.0-53.0) % RDW 16.2 H (11.5-15.5) % Lymphocytes # 0.9 L (1.0-4.8) k/uL Carbon Dioxide 35 H (22-30) mmol/L BUN 38 H (9-20) mg/dL Glucose 101 H (74-99) mg/dL POC Glucose (mg/dL) (75-99) mg/dL Total Bilirubin 1.4 H (0.2-1.3) mg/dL AST 268 H (17-59) U/L ALT 238 H (4-49) U/L Total Protein 5.6 L (6.3-8.2) g/dL Albumin 2.6 L (3.5-5.0) g/dL Procalcitonin (0.02-0.09) ng/mL Assessment and Plan Plan: #1. Acute hypoxic respiratory failure secondary to acute exacerbation of CHF, possibility of pneumonia is less likely although not completely excluded. This is a acute systolic congestion heart failure currently on dobutamine drip and a Lasix drip. Patient was having worsening shortness of breath yesterday. Got transferred to the intensive care unit. Support with her BiPAP. Currently back on dobutamine drip in addition to a Lasix drip and he is making good progress with adequate urine output. Less short of breath compared to yesterday and has been taken off the BiPAP and placed on oxygen at 5 L per minute nasal cannula. Doing well. Chest x-ray from today still showing pulmonary edema and [place] pleural effusions. Right-sided cardiac catheterization was completed and the results were noted. His cardiac rhythm is atrial fibrillation. Is on Xarelto. As an empiric antibiotic coverage with Augmentin. #2. History of chronic alcohol abuse #3. History of chronic atrial fibrillation with acute rapid ventricular response. Currently better controlled, maintained on long-term anticoagulation with Xarelto. #4. Chronic systolic heart failure and an ejection fraction of 20% and the patient is post AICD placement, did have some episodes of nonsustained V. tach short runs on 03/15/2021. #5. Acute kidney injury, improving and the creatinine is down to 1.2 #6. History of prior GI bleeding #7. History of hyperlipidemia #8. History of myocardial infarction #9. History of cardiomyopathy status post AICD placement #10. History of BPH #11. History of tobacco use rule out COPD #12. Left shoulder pain, orthopedic surgery is following, x-ray of the left shoulder is pending #13 History of DVT Plan: Continue dobutamine Lasix drip replace k monitor UO IV fluids are to KVO. Monitor fluid balance and renal function, creatinine is stable The results of the right-sided cath was noted. Continue amiodarone, sildenafil and Aldactone, Toprol XL 25 mg by mouth daily Pulses poor. He is doing slow progress. Wean FiO2 as tolerated to maintain a saturation above 90%. Repeat chest x-ray in a.m. Repeat blood work in a.m. We'll continue to follow.
[2021-03-26] MEDS ORDERED: TERBUTALINE 1 MG/ML VIAL SQ ONE (11:00)
[2021-03-26] MEDS: DOBUTamine DRIP 500 MG in DEXTROSE/WATER 1 250ML.BAG IV SCH (11:14)
[2021-03-26] MEDS ORDERED: POTASSIUM CHLORIDE ER 20 MEQ TAB.ER PO SCH (12:00)
--- NOTE | 2021-03-26 13:54 | P.PN ---
Subjective Progress Note Date: 03/26/21 f/u for tania and volume overload. NET Negative of 1.9L /day Objective - Vital Signs Vital signs: Vital Signs Temp 98.2 F 03/26/21 12:00 Pulse 83 03/26/21 13:00 Resp 19 03/26/21 13:00 BP 112/61 03/26/21 13:00 Pulse Ox 98 03/26/21 13:00 Intake & Output 03/25/21 03/26/21 03/26/21 18:59 06:59 18:59 Intake Total 127.8 1230.033 666.367 Output Total 1175 2160 575 Balance -1047.2 -929.967 91.367 Weight 85.7 kg Intake: IV 127.8 511.2 218.2 DOBUTamine DRIP 500 mg In 37.8 151.2 88.2 Dextrose/Water 1 250ml. bag @ 5 MCG/KG/MIN 12.645 mls/hr IV .[id number] ROBERT Rx#:[id number] Furosemide 100 mg In 30 120 70 Sodium Chloride 0.9% 90 ml @ 10 MG/HR 10 mls/hr IV .Q10H ROBERT Rx#: [id number] Sodium Chloride 0.9% 1, 60 240 60 000 ml @ 20 mls/hr IV . Q24H ROBERT Rx#:[id number] Intake, IV Titration 178.833 448.167 Amount DOBUTamine DRIP 500 mg In 250 Dextrose/Water 1 250ml. bag @ 5 MCG/KG/MIN 12.645 mls/hr IV .[id number] ROBERT Rx#:[id number] Furosemide 100 mg In 78.833 98.167 Sodium Chloride 0.9% 90 ml @ 10 MG/HR 10 mls/hr IV .Q10H ROBERT Rx#: [id number] Magnesium Sulfate-D5w Pmx 100 100 1 gm In Dextrose/Water 1 100ml.bag @ 100 mls/hr IVPB Q1H ROBERT Rx#: [id number] Oral 540 Output: Urine 1175 2160 575 Other: Voiding Method Indwelling Catheter Indwelling Catheter Indwelling Catheter # Bowel Movements 1 - Exam no acute distress' s1 s2 herd decreased breath sounds edema - Labs CBC & Chem 7: 03/26/21 03:33 03/26/21 10:50 Labs: Abnormal Lab Results - Last 24 Hours (Table) 03/24/21 03/25/21 03/26/21 Range/Units 07:25 16:17 03:33 RBC (4.30-5.90) m/uL Hgb (13.0-17.5) gm/dL Hct (39.0-53.0) % RDW (11.5-15.5) % Lymphocytes # (1.0-4.8) k/uL Carbon Dioxide (22-30) mmol/L BUN (9-20) mg/dL Glucose (74-99) mg/dL POC Glucose (mg/dL) 101 H (75-99) mg/dL Total Bilirubin (0.2-1.3) mg/dL AST (17-59) U/L ALT (4-49) U/L Total Protein (6.3-8.2) g/dL Albumin (3.5-5.0) g/dL Procalcitonin 0.18 H 0.37 H (0.02-0.09) ng/mL 03/26/21 03/26/21 Range/Units 03:33 03:33 RBC 3.06 L (4.30-5.90) m/uL Hgb 9.3 L (13.0-17.5) gm/dL Hct 29.9 L (39.0-53.0) % RDW 16.2 H (11.5-15.5) % Lymphocytes # 0.9 L (1.0-4.8) k/uL Carbon Dioxide 35 H (22-30) mmol/L BUN 38 H (9-20) mg/dL Glucose 101 H (74-99) mg/dL POC Glucose (mg/dL) (75-99) mg/dL Total Bilirubin 1.4 H (0.2-1.3) mg/dL AST 268 H (17-59) U/L ALT 238 H (4-49) U/L Total Protein 5.6 L (6.3-8.2) g/dL Albumin 2.6 L (3.5-5.0) g/dL Procalcitonin (0.02-0.09) ng/mL Assessment and Plan Assessment: 1. non oliguric TANIA secondary to CRS 2. chf with systolic dysfunction 3. volume overload Plan: 1. renal function stable, on dobutamine and lasix gtt 2. strict i/o and daily wts 3. goal net negative of 2.5 L /DAY
[2021-03-26 14:47] VITALS: BMI 27.1
[2021-03-26] MEDS: SODIUM CHLORIDE 0.9% 1,000 ML IV SCH ×2 (16:51)
[2021-03-26] MEDS: RIVAROXABAN 15 MG TAB PO SCH (17:39)
--- NOTE | 2021-03-26 20:19 | P.PN ---
Subjective This is a pleasant 81 years old male with multiple medical problems including chronic A. fib, ABUSE, history of DVT and GI bleed, cardiomyopathy status post AICD. Currently is been treated for fluid overload secondary to acute systolic CHF with ejection fraction less than 20% associated with interstitial pneumonia with elevated pro-calcitonin but improving on Augmentin. He is currently kept on Lasix 60 mg IV twice daily, although creatinine slightly worsened up to 2 today however his chest x-ray still showing evidence of CHF. Dobutamine is ordered. Patient also with acute hypoxic respiratory failure, which is mild on 3 L/m of oxygen. Several consultants on the case with the social work professor, porcelain buildup assistant and supervisor painting. 03/22/2021 Patient remains short of breath and having breathing difficulty even at rest where he states most of his time in the bed. No chest pain or coughing. He is saturating 100% on 4 L oxygen. A febrile He is stable. Labs showing creatinine at 2.1 dose to yesterday. Liver enzymes trending down, troponin is slightly up to 1.8. Because of this cardiology started the patient on heparin drip and possible ca rdiac cath. His pneumonia is improving while on Augmentin as there is trending down bothcalcitonin he remains on Augmentin, dobutamine drip at 5, Lasix IV 60 mg twice a day. Heparin drip instead of the Xarelto Ejection fraction less than 20% Patient is going to ECF upon discharge 03/23/2021 Patient breathing the same or slightly better. No significant coughing or chest pain. No leg swelling or basilic dictation. He is hemodynamically stable and saturating high 90s on 3 L oxygen via nasal ca nnula. No more fever. Creatinine trended down to 1.5, sodium went up to 147. Because of this Lasix 60 mg was switched from twice a day down to once daily. Patient remains on Augmentin, dobutamine at drip and heparin drip/Xarelto on hold for possible cardiac cath today Consultants on the case including supervisor painting, social work professor and pulmonary Patient will need to go to subacute rehab upon discharge 03/24/2021 Patient still with some dyspnea and no leg edema is still on 4-5 L of oxygen to keep saturation in 90s. No fever. Patient himself does not feels improvement in his breathing His creatinine came back to normal at 1.1. His pro-calcitonin is trending down while he is on Augmentin. His continued on Lasix and Xarelto Several consultants on the case including cardiology and pulmonary and nephrology I discussed the CODE STATUS with the patient today and he confirmed to me he wants to be full code. Patient has capacity to make medical decision per my evaluation 03/25/2021 Patient is a breathing is worse today need and BiPAP. His chest x-ray showing more congestion especially in the lung bases with more fluid in the middle fissures. Also he has worsening liver enzymes and social work professor for his amiodarone 200 mg 3 times a day down to once daily. His creatinine is stable and within the reference range at 1.2 Because of this patient was moved to the ICU, he was started on dobutamine drip 5 g per KG per minute. As well as Lasix drip at 10 mg per hour Patient to continue ON Augmentin and Xarelto as well 03/26/2021 Patient is moved to the ICU yesterday. He was placed on dobutamine and Lasix drip. He made 2.7 L urine output today through his Salomon catheter. Breathing is little easier today as he states for the first time. He is on 6 L oxygen to keep saturating in the 90s. His kidney function is stable at 1.2. Rest of Vitas looks stable and is not febrile. Liver enzymes start improving after lowering the dose of amiodarone from 3 times a day down to once daily, her social work professor risk of DVTs higher than hepatotoxicity. His pro-calcitonin slightly went up to 0.37. His Augmentin for Now. Chest X-Ray Still Showing Diffuse Infiltrates Suspicious for CHF with Possible Elements of Pneumonia. He Will Need More diuresis. He is using BiPAP during the night with setting 12/5 and FiO2 of 50%. Distal has bilateral basal crepitation on exam but no leg edema Objective - Vital Signs Vital signs: Vital Signs Temp 98.2 F 03/26/21 12:00 Pulse 82 03/26/21 14:00 Resp 13 03/26/21 14:00 BP 102/47 03/26/21 14:00 Pulse Ox 98 03/26/21 14:00 Intake & Output 03/25/21 03/26/21 03/26/21 18:59 06:59 18:59 Intake Total 127.8 1230.033 698.967 Output Total 1175 2160 630 Balance -1047.2 -929.967 68.967 Weight 85.7 kg Intake: IV 127.8 511.2 250.8 DOBUTamine DRIP 500 mg In 37.8 151.2 100.8 Dextrose/Water 1 250ml. bag @ 5 MCG/KG/MIN 12.645 mls/hr IV .[id number] ROBERT Rx#:[id number] Furosemide 100 mg In 30 120 80 Sodium Chloride 0.9% 90 ml @ 10 MG/HR 10 mls/hr IV .Q10H ROBERT Rx#: [id number] Sodium Chloride 0.9% 1, 60 240 70 000 ml @ 20 mls/hr IV . Q24H ROBERT Rx#:[id number] Intake, IV Titration 178.833 448.167 Amount DOBUTamine DRIP 500 mg In 250 Dextrose/Water 1 250ml. bag @ 5 MCG/KG/MIN 12.645 mls/hr IV .[id number] ROBERT Rx#:[id number] Furosemide 100 mg In 78.833 98.167 Sodium Chloride 0.9% 90 ml @ 10 MG/HR 10 mls/hr IV .Q10H ROBERT Rx#: [id number] Magnesium Sulfate-D5w Pmx 100 100 1 gm In Dextrose/Water 1 100ml.bag @ 100 mls/hr IVPB Q1H ROBERT Rx#: [id number] Oral 540 Output: Urine 1175 2160 630 Other: Voiding Method Indwelling Catheter Indwelling Catheter Indwelling Catheter # Bowel Movements 1 - Exam -GENERAL: The patient is alert and oriented x3, not in any acute distress. Well developed, well nourished. Patient is weak and lethargic HEENT: Pupils are round and equally reacting to light. EOMI. No scleral icterus. No conjunctival pallor. Normocephalic, atraumatic. No pharyngeal erythema. No thyromegaly. CARDIOVASCULAR: S1 and S2 present. No murmurs, rubs, or gallops. -PULMONARY: Chest is clear to auscultation, no wheezing or crackles. Bilateral basal crepitation ABDOMEN: Soft, nontender, nondistended, normoactive bowel sounds. No palpable organomegaly. MUSCULOSKELETAL: No joint swelling or deformity. -EXTREMITIES: No cyanosis, clubbing,. Bilateral leg edema NEUROLOGICAL: Gross neurological examination did not reveal any focal deficits. SKIN: No rashes. no petechiae. - Labs CBC & Chem 7: 03/26/21 03:33 03/26/21 18:35 Labs: Abnormal Lab Results - Last 24 Hours (Table) 03/24/21 03/25/21 03/26/21 Range/Units 07:25 16:17 03:33 RBC (4.30-5.90) m/uL Hgb (13.0-17.5) gm/dL Hct (39.0-53.0) % RDW (11.5-15.5) % Lymphocytes # (1.0-4.8) k/uL Carbon Dioxide (22-30) mmol/L BUN (9-20) mg/dL Glucose (74-99) mg/dL POC Glucose (mg/dL) 101 H (75-99) mg/dL Total Bilirubin (0.2-1.3) mg/dL AST (17-59) U/L ALT (4-49) U/L Total Protein (6.3-8.2) g/dL Albumin (3.5-5.0) g/dL Procalcitonin 0.18 H 0.37 H (0.02-0.09) ng/mL 03/26/21 03/26/21 Range/Units 03:33 03:33 RBC 3.06 L (4.30-5.90) m/uL Hgb 9.3 L (13.0-17.5) gm/dL Hct 29.9 L (39.0-53.0) % RDW 16.2 H (11.5-15.5) % Lymphocytes # 0.9 L (1.0-4.8) k/uL Carbon Dioxide 35 H (22-30) mmol/L BUN 38 H (9-20) mg/dL Glucose 101 H (74-99) mg/dL POC Glucose (mg/dL) (75-99) mg/dL Total Bilirubin 1.4 H (0.2-1.3) mg/dL AST 268 H (17-59) U/L ALT 238 H (4-49) U/L Total Protein 5.6 L (6.3-8.2) g/dL Albumin 2.6 L (3.5-5.0) g/dL Procalcitonin (0.02-0.09) ng/mL Assessment and Plan Assessment: Acute and chronic systolic CHF with ejection fraction less than 20%, status post AICD Acute hypoxic respiratory failure Acute kidney injury secondary to cardiorenal syndrome. Improving Amiodarone induced liver toxicity non-STEMI, not a candidate for cardiac cath per [facility] due to his history of noncompliance and complex multiple comorbidities Recent fall Nonsustained ventricular tachycardia Elevated liver enzymes secondary to congested liver improving with Lasix History of DVT Chronic atrial fibrillation and symmetrical. History Of alcohol abuse History Of GI bleed Plan: This is a pleasant 81 years old male who presents with CHF and pneumonia. Continue with Lasix and dobutamine drips. Keep myself patient the ICU Monitor input and output. Monitored creatinine and electrolytes Continue with his oral to Continue with Augmentin Several consultants on the case, supervisor painting, pulmonary/critical care and social work professor Labs and medication were reviewed.. Continue same treatment. Continue with symptomatic treatment. Resume home medication. Monitor lytes and vitals. DVT and GI prophylaxis. Further recommendations as per clinical course of the patient DVT prophylaxis: heparin GI prophylaxis: Pepcid Physical therapy: subacute rehab Prognosis is guarded
[2021-03-26] MEDS: TAMSULOSIN 0.4 MG CAP.ER.24H PO SCH (22:35)
[2021-03-26] MEDS: FAMOTIDINE 20 MG TAB PO SCH (22:36)
[2021-03-26] MEDS: allopurinoL 100 MG TAB PO SCH (22:36)
[2021-03-27 05:05] LABS: Calcium 7.9 mg/dL (8.4-10.2); Magnesium 1.6 mg/dL (1.6-2.3); Potassium 3.8 mmol/L (3.5-5.1)
[2021-03-27] MEDS ORDERED: Magnesium Replacement Protocol 1 EACH MISC MISCELLANE PRN (05:23)
[2021-03-27 05:41] LABS: HCT 29.4 % (39.0-53.0); HGB 9.3 gm/dL (13.0-17.5); Hypochromasia Moderate; MCH 30.9 pg (25.0-35.0); MCHC 31.5 g/dL (31.0-37.0); MCV 98.2 fL (80.0-100.0); Macrocytosis Slight; Mean Platelet Volume 9.1; Platelet Count 205 k/uL (150-450); RBC 2.99 m/uL (4.30-5.90); RDW 15.8 % (11.5-15.5); WBC 9.1 k/uL (3.8-10.6)
[2021-03-27 05:56] LABS: Lymphocytes # (M) 0.82 k/uL (1.0-4.8); Monocytes # (M) 0.46 k/uL (0-1.0); Neutrophils # (M) 7.83 k/uL (1.3-7.7); Neutrophils % (M) 86 %; Nucleated Red Blood Cells 0 /100 WBC (0-0); Stomatocytes Present; Target Cells Present; Total Cells Counted 100
[2021-03-27] MEDS: MAGNESIUM SULFATE-D5W PMX 1 GM in DEXTROSE/WATER 1 100ML.BAG IVPB SCH ×4 (05:56→22:50)
[2021-03-27] MEDS: LEVOTHYROXINE 50 MCG TAB PO SCH (05:56)
[2021-03-27] MEDS: FUROSEMIDE 100 MG in SODIUM CHLORIDE 0.9% 90 ML IV SCH ×2 (06:00→16:37)
[2021-03-27] MEDS: IPRATROPIUM-ALBUTEROL 3 ML NEB INHALATION SCH ×4 (06:55→19:07)
[2021-03-27] MEDS: DOBUTamine DRIP 500 MG in DEXTROSE/WATER 1 250ML.BAG IV SCH (06:55)
--- NOTE | 2021-03-27 07:11 | XR ---
EXAMINATION TYPE: XR chest 1V DATE OF EXAM: 03/27/2021 COMPARISON: 03/26/2020 HISTORY: Shortness of breath FINDINGS: There are bilateral pleural effusions with cardiomegaly and bibasilar infiltrate. There is a diffuse interstitial pattern. Cardiac device is noted. Atherosclerotic change aorta. IMPRESSION: 1. Stable diffuse pleural-parenchymal disease correlate for pulmonary edema versus diffuse pneumonia.
[2021-03-27] MEDS: SILDENAFIL 20 MG TAB PO SCH ×3 (09:30→22:05)
[2021-03-27] MEDS: AMOXIC-POT CLAV 875-125MG 1 EACH TAB PO SCH ×2 (09:30→22:05)
[2021-03-27] MEDS: hydrALAZINE HCL 10 MG TAB PO SCH ×4 (09:31→23:18)
[2021-03-27] MEDS: SPIRONOLACTONE 25 MG TAB PO SCH (09:31)
[2021-03-27] MEDS: CYANOCOBALAMIN 500 MCG TAB PO SCH (09:31)
[2021-03-27] MEDS: AMIODARONE 200 MG TAB PO SCH (09:31)
[2021-03-27] MEDS: METOPROLOL SUCCINATE (ER) 25 MG TAB.ER.24H PO SCH (09:31)
[2021-03-27] MEDS: ESCITALOPRAM 10 MG TAB PO SCH (09:31)
[2021-03-27] MEDS: MENTHOL-ZINC OXIDE OINT 113 GM TUBE TOPICAL SCH (09:32)
--- NOTE | 2021-03-27 09:57 | P.PN ---
Subjective This is a 81-year-old male past medical history ischemic cardiomyopathy status post AICD placement, coronary artery disease with chronic total occlusion of the RCA, chronic nicotine dependence, chronic alcohol intake (usually 1/2 fifth per day), atrial fibrillation, DVT, hyperlipidemia, valvular heart disease moderate tricuspid regurgitation and moderate mitral regurgitation, severe pulmonary hypertension. 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 Cardiology was initially consulted for an arrhythmia. Patient also had elevated troponin at 0.12. Patient presents emergency department with worsening dyspnea, left arm pain, right back pain. He was placed on BIPAP, admitted to the ICU for further monitoring. He had episodes of non sustained ventricular tachycardia, asymptomatic. He was placed on IV amiodarone drip. Echocardiogram revealed an EF of less than 20%, RV is severely enlarged, LA severely dilated, mild aortic regurgitation, mild mitral regurgitation and mild tricuspid regurgitation, mild pulmonary hypertension with RVSP of 45 mmHg. Previous echocardiogram with an EF 30-35%. He states that he was admitted at [facility] in [place] in 2010 due to cardiac arrest he was told that he had a weakened heart. He states he did undergo a cardiac catheterization was told that his blockages were not enough to fix. He also had a AICD placed after this. Records from [facility]: -12/06/2010, patient was found to be in V. fib arrest at home and was transported to [facility] ER. 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 Cardiac catheterization revealed left main showed 20- 30% stenosis, LAD had a 40% long stenosis in the proximal segment, ramus intermedius branch showed mild luminal irregularities with 10-20% diffuse disease, circumflex artery had an ostial 50-60% stenosis and showed mild luminal irregularities in the mid and distal segments. RCA was 100% occluded with ejection fraction of 20%. No stenting was performed -Dual chamber AICD was placed in 12/12/2010 -Echocardiogram 12/13/2010 revealed global hypokinesis of the LV with an EF of 25-30%, mild to moderate mitral regurgitation, mild tricuspid regurgitation 03/23/2021: Patient underwent right heart cath with Dr. Villarreal, no significant elevation of his filling pressure, right ventricular systolic pressure is 42 with end diastolic 8 mmHg. Pulmonary artery systolic of 42, diastolic 10 with a mean of 26. Platelet Wedge pressure of 30, mean of 16- 18 mmHg. Mild pulmonary hypertension with preserved cardiac output. 03/25/2021: Patient seen and examined at bedside, no acute distress on BIPAP. Denies palpitations, chest pain, shortness of breath. His mental status is improved. Blood pressure 08/31/1952, heart rate 80, afebrile, maintaining oxygen saturations 94% on BiPAP. Laboratory data reviewed sodium 141, potassium 3.8, BUN 43, serum creatinine 1.2, AST 2020, ALT 259. Patient currently maintained on amiodarone 200 mg 3 times a day, statin held due to elevated liver enzymes, Lasix 40mg ddaily, hydralazine 20 mg 4 times a day, metoprolol titrate 25 mg daily, Xarelto 15 mg nightly, spironolactone 25 mg daily, sildenafil 20 mg 3 times a day . Patient with terminal urine output over the past 24 hours. 03/26 Patient seen and examined in the ICU. Patient was transferred yesterday secondary to increased shortness breath and some lethargy. Chest x-ray showed worsened volume overload and therefore patient was placed on dobutamine drip at 5 as well as a Lasix drip. Patient has had a good urine output with approximately 100 mL per hour and creatinine remained stable this morning at 1.2. He states he feels somewhat better today. Blood pressures low 100s however appears stable. Liver enzymes mildly elevated however we will continue amiodarone given VT on presentation. No chest pain or pressure. 03/27/2021 Patient seen and examined in the ICU. He remains on dobutamine drip as well as a Lasix drip. He has had good urine output. His creatinine continues improved to 1.0 today. He still feels about the same with continued shortness breath. GENERAL: In no acute distress. On nasal canula NECK: Supple. +JVD LUNGS: Breath sounds has crackles bilateral bases. Respiration equal and unlabored. No wheezes, rales or rhonchi. HEART: Irregular rate and rhythm, S1 and S2 heard.systolic ejection murmur at the apex EXTREMITIES: Normal range of motion, no edema. No clubbing or cyanosis. Peripheral pulses intact. NEURO: alert and oriented x 3. ASSESSMENT: Acute hypoxic respiratory failure secondary to congestive heart failure Acute Kidney Injury, Cardiorenal syndrome Severe pulmonary hypertension Elevated liver enzymes most likely liver congestion Acute systolic heart failure with reduced EF Non sustained ventricular tachycardia Coronary artery disease Ischemic cardiomyopathy status post AICD placement History of chronic alcohol abuse History of chronic atrial fibrillation on Xarelto History of DVT ETOH abuse Chronic nicotine dependence History of dyslipidemia Hypokalemia- improved Hypernatremia - improved Noncompliance PLAN: -Continue amiodarone to 200mg daily. Risk of VT felt greater than poissible worsening of liver function. -Patient without symptoms of angina, with acute on chronic kidney disease, and medical non-compliance. No left heart catheterization at this time -His proBNP yesterday was improved from mid hospitalization. Prior right heart catheterization with only mildly elevated pressures at that time, not surprising given his cardiomyopathy. He appears to be tolerating diuresis well however and we will continue with current therapy. Objective - Vital Signs Vital signs: Vital Signs Temp 98.4 F 03/27/21 08:00 Pulse 83 03/27/21 09:30 Resp 28 H 03/27/21 09:30 BP 113/61 03/27/21 09:30 Pulse Ox 98 03/27/21 09:30 Intake & Output 03/26/21 03/27/21 03/27/21 18:59 06:59 18:59 Intake Total 809.367 840.096 107.8 Output Total 1105 1245 325 Balance -295.633 -404.904 -217.2 Weight 85.7 kg 87.4 kg Intake: IV 361.2 391.2 107.8 DOBUTamine DRIP 500 mg In 151.2 12.6 Dextrose/Water 1 250ml. bag @ 5 MCG/KG/MIN 12.645 mls/hr IV .[id number] ROBERT Rx#:[id number] Dobutamine 138.6 37.8 Furosemide 100 mg In 120 120 40 Sodium Chloride 0.9% 90 ml @ 10 MG/HR 10 mls/hr IV .Q10H ROBERT Rx#: [id number] Sodium Chloride 0.9% 1, 90 120 30 000 ml @ 20 mls/hr IV . Q24H ROBERT Rx#:[id number] Intake, IV Titration 448.167 448.896 Amount DOBUTamine DRIP 500 mg In 250 248.896 Dextrose/Water 1 250ml. bag @ 5 MCG/KG/MIN 12.645 mls/hr IV .[id number] ROBERT Rx#:[id number] Furosemide 100 mg In 98.167 200 Sodium Chloride 0.9% 90 ml @ 10 MG/HR 10 mls/hr IV .Q10H ROBERT Rx#: [id number] Magnesium Sulfate-D5w Pmx 100 1 gm In Dextrose/Water 1 100ml.bag @ 100 mls/hr IVPB Q1H ROBERT Rx#: [id number] Output: Urine 1105 1245 325 Other: Voiding Method Indwelling Catheter Indwelling Catheter Indwelling Catheter # Bowel Movements 1 1 1 - Labs CBC & Chem 7: 03/27/21 04:33 03/27/21 04:33 Labs: Abnormal Lab Results - Last 24 Hours (Table) 03/26/21 03/27/21 03/27/21 Range/Units 03:33 04:33 04:33 RBC 2.99 L (4.30-5.90) m/uL Hgb 9.3 L (13.0-17.5) gm/dL Hct 29.4 L (39.0-53.0) % RDW 15.8 H (11.5-15.5) % Neutrophils # (Manual) 7.83 H (1.3-7.7) k/uL Lymphocytes # (Manual) 0.82 L (1.0-4.8) k/uL Sodium 134 L (137-145) mmol/L Chloride 96 L (98-107) mmol/L Carbon Dioxide 33 H (22-30) mmol/L BUN 33 H (9-20) mg/dL Glucose 102 H (74-99) mg/dL Calcium 7.9 L (8.4-10.2) mg/dL Procalcitonin 0.37 H (0.02-0.09) ng/mL
--- NOTE | 2021-03-27 09:59 | P.PN ---
Subjective Progress Note Date: 03/27/21 81-year-old male, who is admitted to the hospital, on March 16. He came into the emergency room with complaints of shortness of breath. He was brought in by EMS. He apparently is been having difficulty with breathing for some time. The patient is a very poor historian. The patient apparently did not admit to any chest pain or chest pressure. There is no cough, fever, chills, nausea, vomiting, or diarrhea. Currently, the patient is on BiPAP, with settings of 14/5 and 40%. He is receiving amiodarone at 1 mg/m, saline at 130 mL an hour, and a blood gas will be done. The patient has a history of chronic hypoxemic respiratory failure, chronic alcohol abuse, atrial fibrillation, DVT, gastroesop hageal reflux disease, gastrointestinal bleed, myocardial infarction, hyperlipidemia, status post AICD placement, and BPH. Laboratory data includes a white count 11.4, hemoglobin 10.2, hematocrit 32.9, and platelet count 216,000. Blood gases show pO2 106, pCO2 46, with a normal pH. Sodium 138, potassium 4.7, chlorides 102, CO2 29, anion gap 7, BUN 34, creatinine 1.79. AST was 592, and ALT was 290. Urine was negative. The patient's troponin level was 0.127 and the N-terminal proBNP was nearly 11,000. The TSH was normal. Chest x-ray in my opinion, shows cardiomegaly, changes of vascular decompensation. Small effusions and fluid in the minor fissure as well. On 03/18/2001 patient seen in follow-up in the intensive care unit, this morning he is on 3 L of oxygen, his pulse ox is 94%, he only for his BiPAP very briefly for a few minutes last night, and then asked for her to be removed, BiPAP settings were 14/5 and FiO2 of 40%. This morning he appears to be in no acute distress, currently on 0.9 normal saline at 20 ML per hour, and amiodarone is currently off. She remains in atrial fibrillation the rate is controlled at 74 BPM, overall he is looking better and feeling better. he is awake and alert, he is answering questions appropriately, breathing comfortably. No complaint of chest pain, no cough, he remains on breathing treatments, and antibiotics in the form of Zosyn. blood culture showed no growth, he is afebrile this morning, T- max in the last 24 hours was 99.9. today's labs have been reviewed, showing white blood cell count of 8, hemoglobin of 9.3, electrolytes within normal limits, B1 is 44, creatinine is 2.05. His repeat proBNP came back at 31,005 100, his pro calcitonin level was elevated at 1.14.today's follow-up chest x-ray shows interval worsening of right mid and lower lung zone airspace disease. There is left basilar pleural parenchymal disease appears to be stable compared to yesterday's exam. On 03/19/2021 patient seen in follow-up on selective care unit, he is awake and alert, in no acute distress, resting in bed, he is on 3 L of oxygen pulse ox is 96%, breathing comfortably, afebrile, did not require BiPAP support last night. Vital signs have been stable, no complaints of worsening dyspnea or cough. His last chest x-ray yesterday showed some mild interval worsening of right lung airspace disease. Patient remains on Zosyn for antibiotic coverage, he also remains on oral Lasix 80 mg twice daily, he is in -835 mL fluid balance, his weight is down by 4.7 kg in the last 24 hours. Renal profile slightly improved on today's labs, nephrology is following. His liver enzymes are improving, his white blood cell count is normal and significantly improved since admission. He seen [facility] for his left shoulder pain, x-ray of the left shoulder is pending. On 03/21/2021 patient seen in follow-up on selective care unit. He is awake and alert, oriented 3, he is currently sitting up in the recliner, does not appear to be in any acute distress, however he does have exertional dyspnea with any little exertion. He is currently on 3 L of oxygen pulse ox of 100%. Afebrile, only occasional cough, no hemoptysis, no chest pain., However his follow-up chest x-ray shows pulmonary vessel congestion, and some blunting of the costophrenic angles consistent with small bilateral pleural effusions. Lung exam reveals diffuse crackles, patient has positive JVD. He has been on Lasix 60 mg every 12 hours, over his diuresis has been suboptimal, and he is only modestly in negative fluid balance, approximately -300 mL over last 24 hours. His weight is has actually trended up since yesterday, and patient is positive 3 kg. Today's labs have been reviewed, his renal function continues to worsen, his BUN today is up to 64, creatinine is 2.01. Potassium is 3.3, this has been replaced per protocol, his pro calcitonin is improving and is down to 0.38 from 0.63. No fever or chills. Blood cultures have shown no growth. He remains on oral Augmentin. He remains on nebulized bronchodilators. On 03/25/2021 patient is seen in follow-up on [facility] care unit, he is currently on BiPAP which he has been wearing on and off as needed, and when he is sleeping. BiPAP settings are 12 and 5 and FiO2 is 50%, patient has been wearing 3 L of supplemental oxygen , and in between BiPAP, he is sleeping, but he is easily arousable, he states overall his breathing is improving, lung sounds reveal some bibasilar crackles, she denies any cough or significant phlegm production. No hemoptysis, no fever or chills. Today's chest x-ray is pending. His Lasix has been cut back to once daily oral dose of Lasix 40 mg, he is on Aldactone 25 mg daily, remains on amiodarone, and xarelto. Patient is maintaining negative fluid balance, he is in -1 L over last 24 hours, Labs reviewed, showing sodium of 141, potassium is 3.8, chloride is 102, CO2 34, B1 is 43, and creatinine of 1.24. 2020, the patient is already transferred to the intensive care unit. I saw him on a medical floor yesterday and he was having worsening shortness of breath and he was becoming more lethargic. Immediately was placed on a BiPAP at a pressure of 12/5 cm of water. Following that, the patient got transferred to the intensive care unit where he was restarted back on dobutamine drip which is currently running at 5 mg/kg per minute. He was also started on Lasix drip at 10 mg an hour. He is feeling much better on today's evaluation. He is on 5 L of oxygen by nasal cannula. He urine output is in order of 100 mL an hour. He is able to communicate. He is off the BiPAP this morning. Chest x-ray still showing pulmonary edema along with a left-sided pleural effusion and a right- sided pleural effusion and the patient has positive JVDs. On his blood work, his creatinine is at 1.2 and BUN is at 38. Electrolytes showed potassium level of 3.5 that needs to be replaced. His proBNP level was thousand 900. LFTs are also abnormal consistent with hepatic dysfunction related to cardiomyopathy. Hemoglobin is at 9.3 which is slightly lower compared to yesterday. No evidence of any bleed. The patient is communicating. His cardiac rhythm is atrial fibrillation. He remains on Xarelto. He also is on amiodarone. He did have a few runs of nonsustained V. tach few days ago, none for now. In terms of possible pneumonia/aspiration, and cover this patient with Augmentin. Cultures and the blood have been negative. He is currently in the intensive care unit 2020, the patient remains in intensive care unit. Breathing comfortably. Currently on oxygen at 6 L and the patient was not utilizing BiPAP overnight. Did not wear it last night. Nevertheless, his chest x-ray still showing pulmonary edema and pleural effusions and the findings are essentially stable and unchanged despite ongoing clinical improvement. He remains on Lasix drip at 10 mg an hour. He remains on dobutamine at 5 mg/kg/m. Fluid balance is -1.9 L over the past 24 hours the patient's creatinine is down to 1.06. Electrodes are normal with a potassium level III.8. Serum bicarbonate 33 and the sodium level is at 134. Neck veins are still distended. White cell count is at 9.1 with a hemoglobin of 9.3. He did have dobutamine infiltration left upper extremity. Infusion was stopped. Area slightly swollen and puffy yet nonpainful and the patient has adequate pulses in all 4 extremities. Cardiac rhythm remains atrial fibrillation. He remains on Xarelto and amiodarone. He is on no pressors for now. Objective - Vital Signs Vital signs: Vital Signs Temp 98.4 F 03/27/21 08:00 Pulse 83 03/27/21 09:30 Resp 28 H 03/27/21 09:30 BP 113/61 03/27/21 09:30 Pulse Ox 98 03/27/21 09:30 Intake & Output 03/26/21 03/27/21 03/27/21 18:59 06:59 18:59 Intake Total 809.367 840.096 107.8 Output Total 1105 1245 325 Balance -295.633 -404.904 -217.2 Weight 85.7 kg 87.4 kg Intake: IV 361.2 391.2 107.8 DOBUTamine DRIP 500 mg In 151.2 12.6 Dextrose/Water 1 250ml. bag @ 5 MCG/KG/MIN 12.645 mls/hr IV .[id number] ROBERT Rx#:[id number] Dobutamine 138.6 37.8 Furosemide 100 mg In 120 120 40 Sodium Chloride 0.9% 90 ml @ 10 MG/HR 10 mls/hr IV .Q10H ROBERT Rx#: [id number] Sodium Chloride 0.9% 1, 90 120 30 000 ml @ 20 mls/hr IV . Q24H ROBERT Rx#:[id number] Intake, IV Titration 448.167 448.896 Amount DOBUTamine DRIP 500 mg In 250 248.896 Dextrose/Water 1 250ml. bag @ 5 MCG/KG/MIN 12.645 mls/hr IV .[id number] ROBERT Rx#:[id number] Furosemide 100 mg In 98.167 200 Sodium Chloride 0.9% 90 ml @ 10 MG/HR 10 mls/hr IV .Q10H ROBERT Rx#: [id number] Magnesium Sulfate-D5w Pmx 100 1 gm In Dextrose/Water 1 100ml.bag @ 100 mls/hr IVPB Q1H ROBERT Rx#: [id number] Output: Urine 1105 1245 325 Other: Voiding Method Indwelling Catheter Indwelling Catheter Indwelling Catheter # Bowel Movements 1 1 1 - Exam GENERAL EXAM: Alert, very pleasant, 81-year-old white male, on 6 L of oxygen and the pulse ox of 95%, currently mild degree of respiratory distress even at rest. HEAD: Normocephalic/atraumatic. EYES: Normal reaction of pupils, equal size. Conjunctiva pink, sclera white. NOSE: Clear with pink turbinates. THROAT: No erythema or exudates. NECK: No masses, positive JVD, no thyroid enlargement, no adenopathy. CHEST: No chest wall deformity. Symmetrical expansion. LUNGS: Equal air entry with no crackles, wheeze, rhonchi or dullness. CVS: Irregular rate and rhythm, normal S1 and S2, no gallops, no murmurs, no rubs ABDOMEN: Soft, nontender. No hepatosplenomegaly, normal bowel sounds, no guarding or rigidity. EXTREMITIES: No clubbing, no edema, no cyanosis, 2+ pulses and upper and lower extremities. MUSCULOSKELETAL: Muscle strength and tone normal. SPINE: No scoliosis or deformity SKIN: No rashes CENTRAL NERVOUS SYSTEM: Alert and oriented -3. No focal deficits, tone is normal in all 4 extremities. PSYCHIATRIC: Alert and oriented -3. Appropriate affect. Intact judgment and insight. - Labs CBC & Chem 7: 03/27/21 04:33 03/27/21 04:33 Labs: Abnormal Lab Results - Last 24 Hours (Table) 03/26/21 03/27/21 03/27/21 Range/Units 03:33 04:33 04:33 RBC 2.99 L (4.30-5.90) m/uL Hgb 9.3 L (13.0-17.5) gm/dL Hct 29.4 L (39.0-53.0) % RDW 15.8 H (11.5-15.5) % Neutrophils # (Manual) 7.83 H (1.3-7.7) k/uL Lymphocytes # (Manual) 0.82 L (1.0-4.8) k/uL Sodium 134 L (137-145) mmol/L Chloride 96 L (98-107) mmol/L Carbon Dioxide 33 H (22-30) mmol/L BUN 33 H (9-20) mg/dL Glucose 102 H (74-99) mg/dL Calcium 7.9 L (8.4-10.2) mg/dL Procalcitonin 0.37 H (0.02-0.09) ng/mL Assessment and Plan Plan: #1. Acute hypoxic respiratory failure secondary to acute exacerbation of CHF, possibility of pneumonia is less likely although not completely excluded. This is a acute systolic congestion heart failure currently on dobutamine drip and a Lasix drip. The patient is tolerating diuresis adequately and he remains in negative fluid balance of 1.9 L. Continue dobutamine. Continue Lasix drip for another 24 hours. Case was discussed with cardiology. Chest x-ray findings remains relatively unchanged. Encouraged use of BiPAP overnight. Right-sided cardiac catheterization was completed and the results were noted. His cardiac rhythm is atrial fibrillation. Is on Xarelto. As an empiric antibiotic coverage with Augmentin. #2. History of chronic alcohol abuse #3. History of chronic atrial fibrillation with acute rapid ventricular respons e. Currently better controlled, maintained on long-term anticoagulation with Xarelto. #4. Chronic systolic heart failure and an ejection fraction of 20% and the patient is post AICD placement, did have some episodes of nonsustained V. tach short runs on 03/15/2021. #5. Acute kidney injury, improving and the creatinine is down to 1.06 #6. History of prior GI bleeding #7. History of hyperlipidemia #8. History of myocardial infarction #9. History of cardiomyopathy status post AICD placement #10. History of BPH #11. History of tobacco use rule out COPD #12. Left shoulder pain, orthopedic surgery is following, x-ray of the left shoulder is pending #13 History of DVT Plan: Clinically improving and the patient is less short of breath. Chest x-ray findings are still consistent with pulmonary edema and pleural effusions. We'll continue the same treatment for another 24 hours. Continue dobutamine, at 5 mcg/kg per minute Lasix drip at 10 mg an hour replace k monitor UO IV fluids are to KVO. Monitor fluid balance and renal function, creatinine is stable The results of the right-sided cath was noted. Continue amiodarone, sildenafil and Aldactone, Toprol XL 25 mg by mouth daily Pulses poor. He is doing slow progress. Wean FiO2 as tolerated to maintain a saturation above 90%. Repeat chest x-ray in a.m. Repeat blood work in a.m. We'll continue to follow. Encouraged use of BiPAP overnight.
--- NOTE | 2021-03-27 13:26 | P.PN ---
Subjective Progress Note Date: 03/27/21 f/u for tania and volume overload. NET Negative of 700 mls in the last 24 hrs. Objective - Vital Signs Vital signs: Vital Signs Temp 98.3 F 03/27/21 12:00 Pulse 86 03/27/21 13:00 Resp 25 H 03/27/21 13:00 BP 110/59 03/27/21 13:00 Pulse Ox 98 03/27/21 13:00 Intake & Output 03/26/21 03/27/21 03/27/21 18:59 06:59 18:59 Intake Total 809.367 840.096 238.2 Output Total 1105 1245 545 Balance -295.633 -404.904 -306.8 Weight 85.7 kg 87.4 kg Intake: IV 361.2 391.2 238.2 DOBUTamine DRIP 500 mg In 151.2 12.6 Dextrose/Water 1 250ml. bag @ 5 MCG/KG/MIN 12.645 mls/hr IV .[id number] ROBERT Rx#:[id number] DOBUTamine Drip 500mg in 138.6 88.2 dextrose/water 250ml bag @ 5 MCG/KG/MIN 12.645 mls /hr Furosemide 100 mg In 120 120 80 Sodium Chloride 0.9% 90 ml @ 10 MG/HR 10 mls/hr IV .Q10H ROBERT Rx#: [id number] Sodium Chloride 0.9% 1, 90 120 70 000 ml @ 20 mls/hr IV . Q24H ROBERT Rx#:[id number] Intake, IV Titration 448.167 448.896 Amount DOBUTamine DRIP 500 mg In 250 248.896 Dextrose/Water 1 250ml. bag @ 5 MCG/KG/MIN 12.645 mls/hr IV .[id number] ROBERT Rx#:[id number] Furosemide 100 mg In 98.167 200 Sodium Chloride 0.9% 90 ml @ 10 MG/HR 10 mls/hr IV .Q10H ROBERT Rx#: [id number] Magnesium Sulfate-D5w Pmx 100 1 gm In Dextrose/Water 1 100ml.bag @ 100 mls/hr IVPB Q1H ROBERT Rx#: [id number] Output: Urine 1105 1245 545 Other: Voiding Method Indwelling Catheter Indwelling Catheter Indwelling Catheter # Bowel Movements 1 1 1 - Exam no acute distress' s1 s2 herd decreased breath sounds edema - Labs CBC & Chem 7: 03/27/21 04:33 03/27/21 04:33 Labs: Abnormal Lab Results - Last 24 Hours (Table) 03/27/21 03/27/21 Range/Units 04:33 04:33 RBC 2.99 L (4.30-5.90) m/uL Hgb 9.3 L (13.0-17.5) gm/dL Hct 29.4 L (39.0-53.0) % RDW 15.8 H (11.5-15.5) % Neutrophils # (Manual) 7.83 H (1.3-7.7) k/uL Lymphocytes # (Manual) 0.82 L (1.0-4.8) k/uL Sodium 134 L (137-145) mmol/L Chloride 96 L (98-107) mmol/L Carbon Dioxide 33 H (22-30) mmol/L BUN 33 H (9-20) mg/dL Glucose 102 H (74-99) mg/dL Calcium 7.9 L (8.4-10.2) mg/dL Assessment and Plan Assessment: 1. non oliguric TANIA secondary to CRS 2. chf with systolic dysfunction 3. volume overload Plan: 1. renal function stable, on dobutamine and lasix gtt 2. strict i/o and daily wts 3. goal net negative of 2.5 L /DAY
[2021-03-27] MEDS: RIVAROXABAN 15 MG TAB PO SCH (16:38)
[2021-03-27] MEDS: SODIUM CHLORIDE 0.9% 1,000 ML IV SCH ×2 (16:38)
--- NOTE | 2021-03-27 19:18 | P.PN ---
Subjective This is a pleasant 81 years old male with multiple medical problems including chronic A. fib, ABUSE, history of DVT and GI bleed, cardiomyopathy status post AICD. Currently is been treated for fluid overload secondary to acute systolic CHF with ejection fraction less than 20% associated with interstitial pneumonia with elevated pro-calcitonin but improving on Augmentin. He is currently kept on Lasix 60 mg IV twice daily, although creatinine slightly worsened up to 2 today however his chest x-ray still showing evidence of CHF. Dobutamine is ordered. Patient also with acute hypoxic respiratory failure, which is mild on 3 L/m of oxygen. Several consultants on the case with the field observer, desktop support specialist and otm consultant. 03/22/2021 Patient remains short of breath and having breathing difficulty even at rest where he states most of his time in the bed. No chest pain or coughing. He is saturating 100% on 4 L oxygen. A febrile He is stable. Labs showing creatinine at 2.1 dose to yesterday. Liver enzymes trending down, troponin is slightly up to 1.8. Because of this cardiology started the patient on heparin drip and possible ca rdiac cath. His pneumonia is improving while on Augmentin as there is trending down bothcalcitonin he remains on Augmentin, dobutamine drip at 5, Lasix IV 60 mg twice a day. Heparin drip instead of the Xarelto Ejection fraction less than 20% Patient is going to ECF upon discharge 03/23/2021 Patient breathing the same or slightly better. No significant coughing or chest pain. No leg swelling or basilic dictation. He is hemodynamically stable and saturating high 90s on 3 L oxygen via nasal ca nnula. No more fever. Creatinine trended down to 1.5, sodium went up to 147. Because of this Lasix 60 mg was switched from twice a day down to once daily. Patient remains on Augmentin, dobutamine at drip and heparin drip/Xarelto on hold for possible cardiac cath today Consultants on the case including otm consultant, field observer and pulmonary Patient will need to go to subacute rehab upon discharge 03/24/2021 Patient still with some dyspnea and no leg edema is still on 4-5 L of oxygen to keep saturation in 90s. No fever. Patient himself does not feels improvement in his breathing His creatinine came back to normal at 1.1. His pro-calcitonin is trending down while he is on Augmentin. His continued on Lasix and Xarelto Several consultants on the case including cardiology and pulmonary and nephrology I discussed the CODE STATUS with the patient today and he confirmed to me he wants to be full code. Patient has capacity to make medical decision per my evaluation 03/25/2021 Patient is a breathing is worse today need and BiPAP. His chest x-ray showing more congestion especially in the lung bases with more fluid in the middle fissures. Also he has worsening liver enzymes and field observer for his amiodarone 200 mg 3 times a day down to once daily. His creatinine is stable and within the reference range at 1.2 Because of this patient was moved to the ICU, he was started on dobutamine drip 5 g per KG per minute. As well as Lasix drip at 10 mg per hour Patient to continue ON Augmentin and Xarelto as well 03/26/2021 Patient is moved to the ICU yesterday. He was placed on dobutamine and Lasix drip. He made 2.7 L urine output today through his Salomon catheter. Breathing is little easier today as he states for the first time. He is on 6 L oxygen to keep saturating in the 90s. His kidney function is stable at 1.2. Rest of Vitas looks stable and is not febrile. Liver enzymes start improving after lowering the dose of amiodarone from 3 times a day down to once daily, her field observer risk of DVTs higher than hepatotoxicity. His pro-calcitonin slightly went up to 0.37. His Augmentin for Now. Chest X-Ray Still Showing Diffuse Infiltrates Suspicious for CHF with Possible Elements of Pneumonia. He Will Need More diuresis. He is using BiPAP during the night with setting 12/5 and FiO2 of 50%. Distal has bilateral basal crepitation on exam but no leg edema 03/27/2021 Patient is sitting in chair for the first time in the last week. Although her purse still difficulty breathing similar to yesterday however his oxygen requirement slightly better than yesterday down to 5 L/m. Chest x-ray shows still resistant diffuse infiltrates on both sides marking from fluid less likely from pneumonia. His creatinine actually improved 1.06. Patient made almost 1900 L of urine output today. He is kept on dobutamine drip at 5 g per KG per minute and Lasix drip 10 mg/h Patient to be kept in the ICU for now Objective - Vital Signs Vital signs: Vital Signs Temp 98.3 F 03/27/21 16:00 Pulse 84 03/27/21 17:00 Resp 17 03/27/21 17:00 BP 121/53 03/27/21 17:00 Pulse Ox 96 03/27/21 17:00 Intake & Output 03/26/21 03/27/21 03/27/21 18:59 06:59 18:59 Intake Total 809.367 840.096 436.0 Output Total 1105 1245 920 Balance -295.633 -404.904 -484.0 Weight 85.7 kg 87.4 kg Intake: IV 361.2 391.2 336.0 DOBUTamine DRIP 500 mg In 151.2 12.6 Dextrose/Water 1 250ml. bag @ 5 MCG/KG/MIN 12.645 mls/hr IV .[id number] ROBERT Rx#:[id number] DOBUTamine Drip 500mg in 138.6 126.0 dextrose/water 250ml bag @ 5 MCG/KG/MIN 12.645 mls /hr Furosemide 100 mg In 120 120 110 Sodium Chloride 0.9% 90 ml @ 10 MG/HR 10 mls/hr IV .Q10H ROBERT Rx#: [id number] Sodium Chloride 0.9% 1, 90 120 100 000 ml @ 20 mls/hr IV . Q24H ROBERT Rx#:[id number] Intake, IV Titration 448.167 448.896 100 Amount DOBUTamine DRIP 500 mg In 250 248.896 Dextrose/Water 1 250ml. bag @ 5 MCG/KG/MIN 12.645 mls/hr IV .[id number] ROBERT Rx#:[id number] Furosemide 100 mg In 98.167 200 100 Sodium Chloride 0.9% 90 ml @ 10 MG/HR 10 mls/hr IV .Q10H ROBERT Rx#: [id number] Magnesium Sulfate-D5w Pmx 100 1 gm In Dextrose/Water 1 100ml.bag @ 100 mls/hr IVPB Q1H ROBERT Rx#: [id number] Output: Urine 1105 1245 920 Other: Voiding Method Indwelling Catheter Indwelling Catheter Indwelling Catheter # Bowel Movements 1 1 1 - Exam -GENERAL: The patient is alert and oriented x3, not in any acute distress. Well developed, well nourished. Patient is weak and lethargic HEENT: Pupils are round and equally reacting to light. EOMI. No scleral icterus. No conjunctival pallor. Normocephalic, atraumatic. No pharyngeal erythema. No thyromegaly. CARDIOVASCULAR: S1 and S2 present. No murmurs, rubs, or gallops. -PULMONARY: Chest is clear to auscultation, no wheezing or crackles. Bilateral basal crepitation ABDOMEN: Soft, nontender, nondistended, normoactive bowel sounds. No palpable organomegaly. MUSCULOSKELETAL: No joint swelling or deformity. -EXTREMITIES: No cyanosis, clubbing,. Bilateral leg edema NEUROLOGICAL: Gross neurological examination did not reveal any focal deficits. SKIN: No rashes. no petechiae. - Labs CBC & Chem 7: 03/27/21 04:33 03/27/21 04:33 Labs: Abnormal Lab Results - Last 24 Hours (Table) 03/27/21 03/27/21 Range/Units 04:33 04:33 RBC 2.99 L (4.30-5.90) m/uL Hgb 9.3 L (13.0-17.5) gm/dL Hct 29.4 L (39.0-53.0) % RDW 15.8 H (11.5-15.5) % Neutrophils # (Manual) 7.83 H (1.3-7.7) k/uL Lymphocytes # (Manual) 0.82 L (1.0-4.8) k/uL Sodium 134 L (137-145) mmol/L Chloride 96 L (98-107) mmol/L Carbon Dioxide 33 H (22-30) mmol/L BUN 33 H (9-20) mg/dL Glucose 102 H (74-99) mg/dL Calcium 7.9 L (8.4-10.2) mg/dL Assessment and Plan Assessment: Acute and chronic systolic CHF with ejection fraction less than 20%, status post AICD Acute hypoxic respiratory failure Acute kidney injury secondary to cardiorenal syndrome. Improving Amiodarone induced liver toxicity non-STEMI, not a candidate for cardiac cath per [employer] due to his history of noncompliance and complex multiple comorbidities Recent fall Nonsustained ventricular tachycardia Elevated liver enzymes secondary to congested liver improving with Lasix History of DVT Chronic atrial fibrillation and symmetrical. History Of alcohol abuse History Of GI bleed Plan: This is a pleasant 81 years old male who presents with CHF and pneumonia. Continue with Lasix and dobutamine drips. Keep myself patient the ICU Monitor input and output. Monitored creatinine and electrolytes Continue with his oral to Continue with Augmentin Several consultants on the case, otm consultant, pulmonary/critical care and field observer Labs and medication were reviewed.. Continue same treatment. Continue with symptomatic treatment. Resume home medication. Monitor lytes and vitals. DVT and GI prophylaxis. Further recommendations as per clinical course of the patient DVT prophylaxis: heparin GI prophylaxis: Pepcid Physical therapy: subacute rehab Prognosis is guarded
[2021-03-27 20:18] LABS: Calcium 8.3 mg/dL (8.4-10.2); Magnesium 1.9 mg/dL (1.6-2.3); Potassium 3.6 mmol/L (3.5-5.1)
[2021-03-27] MEDS: allopurinoL 100 MG TAB PO SCH (22:06)
[2021-03-27] MEDS: TAMSULOSIN 0.4 MG CAP.ER.24H PO SCH (22:06)
[2021-03-27] MEDS: FAMOTIDINE 20 MG TAB PO SCH (22:06)
[2021-03-27] MEDS ORDERED: FUROSEMIDE 10 MG/ML 10 ML VIAL IV STA (22:37)
[2021-03-28] MEDS ORDERED: DEXTROSE 5% IN WATER 100 ML with AMIODARONE 150 MG IV ONE (00:23)
[2021-03-28] MEDS ORDERED: AMIODARONE 360 MG in DEXTROSE 5% IN WATER 200 ML IV ONE ×2 (00:25)
[2021-03-28] MEDS: POTASSIUM CHLORIDE 10 MEQ in WATER FOR INJECTION 1 100ML.BAG IVPB SCH ×6 (00:53→06:43)
[2021-03-28] MEDS: FUROSEMIDE 100 MG in SODIUM CHLORIDE 0.9% 90 ML IV SCH ×4 (01:41→21:54)
[2021-03-28 03:35] LABS: Basophils % (A) 0 %; Eosinophils # (A) 0.1 k/uL (0-0.7); Eosinophils % (A) 1 %; HGB 9.9 gm/dL (13.0-17.5); Hypochromasia Marked; Lymphocytes # (A) 0.9 k/uL (1.0-4.8); Lymphocytes % (A) 9 %; MCH 30.8 pg (25.0-35.0); MCV 99.2 fL (80.0-100.0); Macrocytosis Slight; Mean Platelet Volume 9.2; Monocytes # (A) 0.5 k/uL (0-1.0); Monocytes % (A) 5 %; Neutrophils # (A) 8.3 k/uL (1.3-7.7); Neutrophils % (A) 85 %; Platelet Count 151 k/uL (150-450); RBC 3.22 m/uL (4.30-5.90); RDW 15.5 % (11.5-15.5); WBC 9.8 k/uL (3.8-10.6)
[2021-03-28 03:43] LABS: Calcium 8.2 mg/dL (8.4-10.2); Magnesium 2.2 mg/dL (1.6-2.3); Potassium 4.2 mmol/L (3.5-5.1)
--- NOTE | 2021-03-28 04:07 | P.EN ---
Code Blue Note Activated at 3:20 AM. Arrived on the scene shortly after. Reviewed the chart and discussed the case with RN in detail. The patient is currently medical ICU for acute on chronic severe systolic CHF. The patient had multiple runs of nonsustained V. tach throughout the night, for which amiodarone infusion was started. The patient subsequently went into a sustained ventricular tachycardia became unresponsive and lost pulse. ACLS protocol was initiated and CPR was performed. He was shocked with 200 J with subsequent ROSC. The patient subsequently regained consciousness and was verbal and communicating. The case was discussed by me with cardiology on-call Dr. Barrios. He recommended discontinuing the patient's dobutamine infusion and to continue with the ami odarone infusion. He further recommended an additional IV push bolus of amiodarone if the patient experiences another episode of pulseless ventricular tachycardia. EKG was obtained which showed sinus rhythm w/ incomplete LBBB. Primary and intensivists were notified by the RN. Total time spent providing critical care for the patient: > 30 minutes.
[2021-03-28] MEDS: DOBUTamine DRIP 500 MG in DEXTROSE/WATER 1 250ML.BAG IV SCH (04:12)
[2021-03-28] MEDS: AMIODARONE 450 MG in DEXTROSE 5% IN WATER 250 ML IV SCH ×4 (07:30→23:43)
--- NOTE | 2021-03-28 07:31 | XR ---
EXAMINATION TYPE: XR chest 1V DATE OF EXAM: 03/28/2021 COMPARISON: 03/27/2021 HISTORY: 81-year-old male CHF, shortness of breath TECHNIQUE: Single frontal view of the chest is obtained. FINDINGS: Left anterior chest wall ICD generator with right atrial and ventricular leads. Heart is enlarged. At herosclerotic arch calcifications. Patchy bilateral consolidation, greatest in the lower lungs with u nderlying small effusions. IMPRESSION: Relatively unchanged CHF with pulmonary edema and small effusions.
[2021-03-28] MEDS: IPRATROPIUM-ALBUTEROL 3 ML NEB INHALATION SCH ×4 (07:35→20:43)
--- NOTE | 2021-03-28 08:41 | P.PN ---
Subjective Patient is seen in follow-up for acute kidney injury. Creatinine is stable. However patient's urine output is gradually decreasing. He did have a brief cardiopulmonary arrest last night. Dobutamine has been stopped. He is maintained on Lasix drip as well as amiodarone drip. Currently on BiPAP. Vital signs are stable. Blood pressure in the systolic 90s. General: The patient appeared well nourished and normally developed. HEENT: Head exam is unremarkable. On BiPAP. LUNGS: Breath sounds decreased. HEART: Rate and Rhythm are regular. ABDOMEN: Soft, no distention. EXTREMITITES: No edema. Objective - Vital Signs Vital signs: Vital Signs Temp 99.1 F 03/28/21 02:00 Pulse 79 03/28/21 08:00 Resp 21 03/28/21 07:00 BP 96/40 03/28/21 07:00 Pulse Ox 92 L 03/28/21 07:00 Intake & Output 03/27/21 03/28/21 03/28/21 18:59 06:59 18:59 Intake Total 501.2 1281.867 132.6 Output Total 995 515 10 Balance -493.8 766.867 122.6 Weight 88.7 kg Intake: IV 401.2 1191.2 132.6 DOBUTamine Drip 500mg in 151.2 151.2 12.6 dextrose/water 250ml bag @ 5 MCG/KG/MIN 12.645 mls /hr Furosemide 100 mg In 130 120 10 Sodium Chloride 0.9% 90 ml @ 10 MG/HR 10 mls/hr IV .Q10H ROBERT Rx#: [id number] Magnesium Sulfate-D5w Pmx 200 1 gm In Dextrose/Water 1 100ml.bag @ 100 mls/hr IVPB Q1H ROBERT Rx#: [id number] Potassium Chloride 10 meq 600 100 In Water For Injection 1 100ml.bag @ 100 mls/hr IVPB Q1HR ROBERT Rx#: [id number] Sodium Chloride 0.9% 1, 120 120 10 000 ml @ 20 mls/hr IV . Q24H ROBERT Rx#:[id number] Intake, IV Titration 100 90.667 Amount Furosemide 100 mg In 100 90.667 Sodium Chloride 0.9% 90 ml @ 10 MG/HR 10 mls/hr IV .Q10H ROBERT Rx#: [id number] Output: Urine 995 515 10 Other: Voiding Method Indwelling Catheter Indwelling Catheter # Bowel Movements 1 1 - Labs CBC & Chem 7: 03/28/21 03:07 03/28/21 03:07 Labs: Abnormal Lab Results - Last 24 Hours (Table) 03/27/21 03/28/21 03/28/21 Range/Units 20:00 03:07 03:07 RBC 3.22 L (4.30-5.90) m/uL Hgb 9.9 L (13.0-17.5) gm/dL Hct 32.0 L (39.0-53.0) % Neutrophils # 8.3 H (1.3-7.7) k/uL Lymphocytes # 0.9 L (1.0-4.8) k/uL Sodium 134 L (137-145) mmol/L Chloride 94 L 93 L (98-107) mmol/L Carbon Dioxide 34 H 32 H (22-30) mmol/L BUN 32 H 33 H (9-20) mg/dL Glucose 126 H 104 H (74-99) mg/dL Calcium 8.3 L 8.2 L (8.4-10.2) mg/dL Assessment and Plan Plan: Assessment: 1. Acute kidney injury secondary to ATN secondary to hypotension and cardiorenal syndrome. Creatinine was 1.13 on admission and is 2.02 today. Renal ultrasound from November revealed no evidence of hydronephrosis. 2. Acute on chronic systolic CHF with ejection fraction of less than 20%. 3. Pulmonary hypertension. 4. Acute hypoxia respiratory failure. 5. Volume overload. 6. Ventricular tachycardia/cardiac arrest maintained on amiodarone. Cardiology following. 7. Hypomagnesemia from poor intake and diuresis. Replaced. Better. Plan: Maintain Lasix drip. Dobutamine currently held. Continue to monitor renal function and urine output. Avoid nephrotoxins. Repeat BMP this evening. Add midodrine. CODE STATUS will be discussed with the family. Patient will also be not an ideal candidate for long-term renal replacement therapy due to severe cardiomyopathy. Continue to assess daily for potential need for renal placement therapy.
--- NOTE | 2021-03-28 11:15 | P.PN ---
Subjective This is a 81-year-old male past medical history ischemic cardiomyopathy status post AICD placement ([employer]), coronary artery disease with chronic total occlusion of the RCA, chronic nicotine dependence, chronic alcohol intake (usually 1/2 fifth per day), atrial fibrillation, DVT, hyperlipidemia, valvular heart disease moderate tricuspid regurgitation and moderate mitral regurgitation, severe pulmonary hypertension. He does not follow regularly with a logistic specialist. He had a cardiac arrest at around 3:00 this morning with sustained ventricular tachycardia. He was shocked by the external defibrillator and achieved ROSC. He is seen and examined sitting up with Bipap on and product safety tester at the bedside. He is alert and conversing, but seems confused. Blood pressure 96/40 heart rate 79. Laboratory data reviewed, WBC 9.8, hemoglobin 9.9, platelets 151, sodium 134, potassium 4.2, creatinine 1.18 and magnesium 2.2. GENERAL: On bipap with product safety tester at the bedside NECK: Supple with + JVD. LUNGS: Bilateral rales, no wheezes or rhonchi. Respiration equal and unlabored. HEART: Irregular rate and rhythm with systolic ejection murmur at the apex, no rubs or gallops. S1 and S2 heard. EXTREMITIES: Normal range of motion, no edema. No clubbing or cyanosis. Peripheral pulses intact. ASSESSMENT Acute hypoxic respiratory failure secondary to congestive heart failure Acute kidney injury Severe pulmonary hypertension Elevated liver enzymes most likely liver congestion Acute on chronic systolic heart failure Non sustained ventricular tachycardia Sustained ventricular tachycardia requiring defibrillation Coronary artery disease Ischemic cardiomyopathy status post AICD placement Chronic persistent atrial fibrillation on Xarelto History of DVT ETOH abuse Chronic nicotine dependence Dyslipidemia Hypokalemia- improved Hypernatremia - improved Noncompliance PLAN TSH earlier this admission 3.94, repeat today. Patient is currently maintained on IV amiodarone infusion. Continue Lasix drip. We will request Dr. Dennis's evaluation as he is having recurrent VT on amiodarone. Nurse Practitioner note has been reviewed, I agree with a documented findings and plan of care. Patient was seen and examined. Objective - Vital Signs Vital signs: Vital Signs Temp 99.1 F 03/28/21 02:00 Pulse 79 03/28/21 08:00 Resp 21 03/28/21 07:00 BP 96/40 03/28/21 07:00 Pulse Ox 92 L 03/28/21 07:00 Intake & Output 03/27/21 03/28/21 03/28/21 18:59 06:59 18:59 Intake Total 501.2 1281.867 132.6 Output Total 995 515 10 Balance -493.8 766.867 122.6 Weight 88.7 kg Intake: IV 401.2 1191.2 132.6 DOBUTamine Drip 500mg in 151.2 151.2 12.6 dextrose/water 250ml bag @ 5 MCG/KG/MIN 12.645 mls /hr Furosemide 100 mg In 130 120 10 Sodium Chloride 0.9% 90 ml @ 10 MG/HR 10 mls/hr IV .Q10H ROBERT Rx#: [id number] Magnesium Sulfate-D5w Pmx 200 1 gm In Dextrose/Water 1 100ml.bag @ 100 mls/hr IVPB Q1H ROBERT Rx#: [id number] Potassium Chloride 10 meq 600 100 In Water For Injection 1 100ml.bag @ 100 mls/hr IVPB Q1HR ROBERT Rx#: [id number] Sodium Chloride 0.9% 1, 120 120 10 000 ml @ 20 mls/hr IV . Q24H ROBERT Rx#:[id number] Intake, IV Titration 100 90.667 Amount Furosemide 100 mg In 100 90.667 Sodium Chloride 0.9% 90 ml @ 10 MG/HR 10 mls/hr IV .Q10H ROBERT Rx#: [id number] Output: Urine 995 515 10 Other: Voiding Method Indwelling Catheter Indwelling Catheter # Bowel Movements 1 1 - Labs CBC & Chem 7: 03/28/21 03:07 03/28/21 03:07 Labs: Abnormal Lab Results - Last 24 Hours (Table) 03/27/21 03/28/21 03/28/21 Range/Units 20:00 03:07 03:07 RBC 3.22 L (4.30-5.90) m/uL Hgb 9.9 L (13.0-17.5) gm/dL Hct 32.0 L (39.0-53.0) % Neutrophils # 8.3 H (1.3-7.7) k/uL Lymphocytes # 0.9 L (1.0-4.8) k/uL Sodium 134 L (137-145) mmol/L Chloride 94 L 93 L (98-107) mmol/L Carbon Dioxide 34 H 32 H (22-30) mmol/L BUN 32 H 33 H (9-20) mg/dL Glucose 126 H 104 H (74-99) mg/dL Calcium 8.3 L 8.2 L (8.4-10.2) mg/dL
[2021-03-28] MEDS: hydrALAZINE HCL 10 MG TAB PO SCH ×4 (11:48→21:54)
[2021-03-28] MEDS: METOPROLOL SUCCINATE (ER) 25 MG TAB.ER.24H PO SCH (11:49)
[2021-03-28] MEDS: LEVOTHYROXINE 50 MCG TAB PO SCH (12:09)
[2021-03-28] MEDS: CYANOCOBALAMIN 500 MCG TAB PO SCH (12:09)
[2021-03-28] MEDS: ESCITALOPRAM 10 MG TAB PO SCH (12:09)
[2021-03-28] MEDS: MENTHOL-ZINC OXIDE OINT 113 GM TUBE TOPICAL SCH (12:10)
[2021-03-28] MEDS: MIDODRINE 5 MG TAB PO SCH ×2 (12:10→16:37)
[2021-03-28] MEDS: SPIRONOLACTONE 25 MG TAB PO SCH (12:10)
[2021-03-28] MEDS: SILDENAFIL 20 MG TAB PO SCH ×3 (12:10→21:04)
[2021-03-28] MEDS ORDERED: LIDOCAINE 1% INJ 10MG/ML (10 ML MDV) SQ ONE (12:51)
--- NOTE | 2021-03-28 12:54 | P.PN ---
Subjective Progress Note Date: 03/28/21 Principal diagnosis: Acute hypoxic respiratory failure secondary to acute systolic congestive heart failure. 81-year-old male, who is admitted to the hospital, on March 16. He came into the emergency room with complaints of shortness of breath. He was brought in by EMS. He apparently is been having difficulty with breathing for some time. The patient is a very poor historian. The patient apparently did not admit to any chest pain or chest pressure. There is no cough, fever, chills, nausea, vomiting, or diarrhea. Currently, the patient is on BiPAP, with settings of 14 /5 and 40%. He is receiving amiodarone at 1 mg/m, saline at 130 mL an hour, and a blood gas will be done. The patient has a history of chronic hypoxemic respiratory failure, chronic alcohol abuse, atrial fibrillation, DVT, gastroesophageal reflux disease, gastrointestinal bleed, myocardial infarction, hyperlipidemia, status post AICD placement, and BPH. Laboratory data includes a white count 11.4, hemoglobin 10.2, hematocrit 32.9, and platelet count 216,000. Blood gases show pO2 106, pCO2 46, with a normal pH. Sodium 138, potassium 4.7, chlorides 102, CO2 29, anion gap 7, BUN 34, creatinine 1.79. AST was 592, and ALT was 290. Urine was negative. The patient's troponin level was 0.127 and the N-terminal proBNP was nearly 11,000. The TSH was normal. Chest x-ray in my opinion, shows cardiomegaly, changes of vascular decompensation. Small effusions and fluid in the minor fissure as well. On 03/18/2001 patient seen in follow-up in the intensive care unit, this morning he is on 3 L of oxygen, his pulse ox is 94%, he only for his BiPAP very briefly for a few minutes last night, and then asked for her to be removed, BiPAP settings were 14/5 and FiO2 of 40%. This morning he appears to be in no acute distress, currently on 0.9 normal saline at 20 ML per hour, and amiodarone is currently off. She remains in atrial fibrillation the rate is controlled at 74 BPM, overall he is looking better and feeling better. he is awake and alert, he is answering questions appropriately, breathing comfortably. No complaint of chest pain, no cough, he remains on breathing treatments, and antibiotics in the form of Zosyn. blood culture showed no growth, he is afebrile this morning, T-ma x in the last 24 hours was 99.9. today's labs have been reviewed, showing white blood cell count of 8, hemoglobin of 9.3, electrolytes within normal limits, B1 is 44, creatinine is 2.05. His repeat proBNP came back at 31,005 100, his pro calcitonin level was elevated at 1.14.today's follow-up chest x-ray shows interval worsening of right mid and lower lung zone airspace disease. There is left basilar pleural parenchymal disease appears to be stable compared to yesterday's exam. On 03/19/2021 patient seen in follow-up on selective care unit, he is awake and alert, in no acute distress, resting in bed, he is on 3 L of oxygen pulse ox is 96%, breathing comfortably, afebrile, did not require BiPAP support last night. Vital signs have been stable, no complaints of worsening dyspnea or cough. His last chest x-ray yesterday showed some mild interval worsening of right lung airspace disease. Patient remains on Zosyn for antibiotic coverage, he also remains on oral Lasix 80 mg twice daily, he is in -835 mL fluid balance, his weight is down by 4.7 kg in the last 24 hours. Renal profile slightly improved on today's labs, nephrology is following. His liver enzymes are improving, his white blood cell count is normal and significantly improved since admission. He seen [facility] for his left shoulder pain, x-ray of the left shoulder is pending. On 03/21/2021 patient seen in follow-up on selective care unit. He is awake and alert, oriented 3, he is currently sitting up in the recliner, does not appear to be in any acute distress, however he does have exertional dyspnea with any little exertion. He is currently on 3 L of oxygen pulse ox of 100%. Afebrile, only occasional cough, no hemoptysis, no chest pain., However his follow-up chest x-ray shows pulmonary vessel congestion, and some blunting of the costophrenic angles consistent with small bilateral pleural effusions. Lung exam reveals diffuse crackles, patient has positive JVD. He has been on Lasix 60 mg every 12 hours, over his diuresis has been suboptimal, and he is only modestly in negative fluid balance, approximately -300 mL over last 24 hours. His weight is has actually trended up since yesterday, and patient is positive 3 kg. Today's labs have been reviewed, his renal function continues to worsen, his BUN today is up to 64, creatinine is 2.01. Potassium is 3.3, this has been replaced per protocol, his pro calcitonin is improving and is down to 0.38 from 0.63. No fever or chills. Blood cultures have shown no growth. He remains on oral Augmentin. He remains on nebulized bronchodilators. On 03/25/2021 patient is seen in follow-up on [facility] care unit, he is currently on BiPAP which he has been wearing on and off as needed, and when he is sleeping. BiPAP settings are 12 and 5 and FiO2 is 50%, patient has been wearing 3 L of supplemental oxygen , and in between BiPAP, he is sleeping, but he is easily arousable, he states overall his breathing is improving, lung soun ds reveal some bibasilar crackles, she denies any cough or significant phlegm production. No hemoptysis, no fever or chills. Today's chest x-ray is pending. His Lasix has been cut back to once daily oral dose of Lasix 40 mg, he is on Aldactone 25 mg daily, remains on amiodarone, and xarelto. Patient is maintaining negative fluid balance, he is in -1 L over last 24 hours, Labs reviewed, showing sodium of 141, potassium is 3.8, chloride is 102, CO2 34, B1 is 43, and creatinine of 1.24. 2020, the patient is already transferred to the intensive care unit. I saw him on a medical floor yesterday and he was having worsening shortness of breath and he was becoming more lethargic. Immediately was placed on a BiPAP at a pressure of 12/5 cm of water. Following that, the patient got transferred to the intensive care unit where he was restarted back on dobutamine drip which is currently running at 5 mg/kg per minute. He was also started on Lasix drip at 10 mg an hour. He is feeling much better on today's evaluation. He is on 5 L of oxygen by nasal cannula. He urine output is in order of 100 mL an hour. He is able to communicate. He is off the BiPAP this morning. Chest x-ray still showing pulmonary edema along with a left-sided pleural effusion and a right- sided pleural effusion and the patient has positive JVDs. On his blood work, his creatinine is at 1.2 and BUN is at 38. Electrolytes showed potassium level of 3.5 that needs to be replaced. His proBNP level was thousand 900. LFTs are also abnormal consistent with hepatic dysfunction related to cardiomyopathy. Hemoglobin is at 9.3 which is slightly lower compared to yesterday. No evidence of any bleed. The patient is communicating. His cardiac rhythm is atrial fibrillation. He remains on Xarelto. He also is on amiodarone. He did have a few runs of nonsustained V. tach few days ago, none for now. In terms of possible pneumonia/aspiration, and cover this patient with Augmentin. Cultures and the blood have been negative. He is currently in the intensive care unit 2020, the patient remains in intensive care unit. Breathing comfortably. Currently on oxygen at 6 L and the patient was not utilizing BiPAP overnight. Did not wear it last night. Nevertheless, his chest x-ray still showing pulm onary edema and pleural effusions and the findings are essentially stable and unchanged despite ongoing clinical improvement. He remains on Lasix drip at 10 mg an hour. He remains on dobutamine at 5 mg/kg/m. Fluid balance is -1.9 L over the past 24 hours the patient's creatinine is down to 1.06. Electrodes are normal with a potassium level III.8. Serum bicarbonate 33 and the sodium level is at 134. Neck veins are still distended. White cell count is at 9.1 with a hemoglobin of 9.3. He did have dobutamine infiltration left upper extremity. Infusion was stopped. Area slightly swollen and puffy yet nonpainful and the patient has adequate pulses in all 4 extremities. Cardiac rhythm remains atrial fibrillation. He remains on Xarelto and amiodarone. He is on no pressors for now. Reevaluated today on 03/28/2021, patient remains in the ICU, remains on BiPAP with IPAP of 12 and EPAP of 5 and 50% FiO2. Remains on Lasix at 10 mg per hour IV fluid at KVO amiodarone at 0.5 mg/m, Dobutrex is off for the last 48 hours. Patient had an episode of pulseless ventricular tachycardia last night, patient was shocked once, had brief CPR, there was return of spontaneous circulation. His urine output remains low at 10-15 mL per hour. Chest x-ray continues to show evidence of pulmonary edema. Overall the patient is doing great, and today I had a chance to discuss his CODE STATUS with his son and the patient will be transitioned DO NOT RESUSCITATE CODE STATUS. ABC today is relatively normal. Hemoglobin is 9.9. Lites are normal renal profile is abnormal with a BUN of 33 creatinine 1.18, slightly better compared to yesterday. Patient is on multiple drips, and I'm recommending a PICC line placement in this patient, he has been on anticoagulation therapy and would hold Xarelto for now. Objective - Vital Signs Vital signs: Vital Signs Temp 99.1 F 03/28/21 02:00 Pulse 77 03/28/21 11:44 Resp 21 03/28/21 07:00 BP 96/40 03/28/21 07:00 Pulse Ox 92 L 03/28/21 07:00 Intake & Output 03/27/21 03/28/21 03/28/21 18:59 06:59 18:59 Intake Total 501.2 1281.867 232.6 Output Total 995 515 10 Balance -493.8 766.867 222.6 Weight 88.7 kg Intake: IV 401.2 1191.2 132.6 DOBUTamine Drip 500mg in 151.2 151.2 12.6 dextrose/water 250ml bag @ 5 MCG/KG/MIN 12.645 mls /hr Furosemide 100 mg In 130 120 10 Sodium Chloride 0.9% 90 ml @ 10 MG/HR 10 mls/hr IV .Q10H ROBERT Rx#: [id number] Magnesium Sulfate-D5w Pmx 200 1 gm In Dextrose/Water 1 100ml.bag @ 100 mls/hr IVPB Q1H ROBERT Rx#: [id number] Potassium Chloride 10 meq 600 100 In Water For Injection 1 100ml.bag @ 100 mls/hr IVPB Q1HR ROBERT Rx#: [id number] Sodium Chloride 0.9% 1, 120 120 10 000 ml @ 20 mls/hr IV . Q24H ROBERT Rx#:[id number] Intake, IV Titration 100 90.667 100 Amount Furosemide 100 mg In 100 90.667 100 Sodium Chloride 0.9% 90 ml @ 10 MG/HR 10 mls/hr IV .Q10H ROBERT Rx#: [id number] Output: Urine 995 515 10 Other: Voiding Method Indwelling Catheter Indwelling Catheter # Bowel Movements 1 1 - Exam GENERAL EXAM: Revealed a 81-year-old white male on BiPAP, HEAD: Normocephalic/atraumatic. EYES: Normal reaction of pupils, equal size. Conjunctiva pink, sclera white. NOSE: Clear with pink turbinates. THROAT: No erythema or exudates. NECK: No masses, positive JVD, no thyroid enlargement, no adenopathy. CHEST: No chest wall deformity. Symmetrical expansion. LUNGS: Crackles at the bases are noted. CVS: Irregular rate and rhythm, normal S1 and S2, no gallops, over 6 systolic murmur thought the precordium. ABDOMEN: Soft, nontender. No hepatosplenomegaly, normal bowel sounds, no guarding or rigidity. EXTREMITIES: No clubbing, 1+ bipedal edema, no cyanosis, 2+ pulses and upper and lower extremities. MUSCULOSKELETAL: Muscle strength and tone normal. SKIN: No rashes CENTRAL NERVOUS SYSTEM: Alert and oriented 3 focal deficit. PSYCHIATRIC: Normal mood affect and normal mental status exam. - Labs CBC & Chem 7: 03/28/21 03:07 03/28/21 03:07 Labs: Abnormal Lab Results - Last 24 Hours (Table) 03/27/21 03/28/21 03/28/21 Range/Units 20:00 03:07 03:07 RBC 3.22 L (4.30-5.90) m/uL Hgb 9.9 L (13.0-17.5) gm/dL Hct 32.0 L (39.0-53.0) % Neutrophils # 8.3 H (1.3-7.7) k/uL Lymphocytes # 0.9 L (1.0-4.8) k/uL Sodium 134 L (137-145) mmol/L Chloride 94 L 93 L (98-107) mmol/L Carbon Dioxide 34 H 32 H (22-30) mmol/L BUN 32 H 33 H (9-20) mg/dL Glucose 126 H 104 H (74-99) mg/dL Calcium 8.3 L 8.2 L (8.4-10.2) mg/dL Assessment and Plan Assessment: Impression: Acute hypoxic respiratory failure secondary to acute exacerbation of systolic congestive heart failure. Status post cardiac arrest early this morning responded to defibrillation and CPR/briefly. Acute kidney injury suspected cardiorenal in nature. Severe LV dysfunction and cardiomyopathy with LV dysfunction requiring AICD placement. History of underlying COPD. Presently inactive. History of deep vein thrombosis. History of coronary arteriosclerosis and previous [place]. Prior history of GI bleeding. Chronic atrial fibrillation. History of alcohol abuse. Recommendation: Continue present supportive care measures. Continue BiPAP. Continue Lasix drip. Continue amiodarone. Monitor and correct abnormal electrolytes. Continue to monitor fluid status on a daily basis. Titrate FiO2 accordingly. Continue GI and DVT prophylaxis. Continue anticoagulation therapy. Continue updrafts Resume Xarelto after PICC line placement. Discussed his condition with son over the phone, and CODE STATUS change her DO NOT RESUSCITATE. Critical care time is over 30 minutes. Time with Patient: Greater than 30
--- NOTE | 2021-03-28 13:40 | XR ---
EXAMINATION TYPE: XR chest 1V confirm line [facility] DATE OF EXAM: 03/28/2021 COMPARISON: 03/28/2021 HISTORY: 81-year-old male PICC line placement TECHNIQUE: Single frontal view of the chest is obtained. FINDINGS: The right PICC tip is curled laterally. Patient is rotated towards the right. Left anterior chest wal l AICD generator with right atrial and ventricular leads. Continued cardiomegaly and bilateral inters titial and patchy and confluent airspace opacities. There may be slight worsening left mid and lower lung. Extreme lung bases are excluded from view. IMPRESSION: 1. Interval placement of a right PICC line. The tip is curled, pointing towards the left, possibly ju st entering the azygos vein. Follow-up should be a well centered AP view. 2. Continued bilateral airspace disease with possible slight worsening left mid and lower lung.
--- NOTE | 2021-03-28 13:41 | IR ---
PICC LINE PLACEMENT: HISTORY: Infection requiring long-term antibiotic therapy PROCEDURE: Ultrasound guidance of PICC line placement. BRUSH LOADER AND HANDLE ATTACHER: Dr. Jacobsen. COMPLICATIONS: None ANESTHESIA: 1. 1% Lidocaine locally. FINDINGS/TECHNIQUE: The procedure was explained to the patient. The risks, complications, benefits and alternatives were discussed and any questions were answered. Informed consent was obtained. The patient was placed supine on the fluoroscopic table and prepped and draped in the usual sterile fas ion. Utilizing a 21 gauge needle and sonographic guidance, access in the right basilic vein was ach ieved and there is placement of a 0.018 guidewire. The vein is patent. A 5-F. sheath was placed ove r the guidewire. The guidewire and dilator were removed and a 5-F. Double lumen PICC line was placed through the sheath with the chest x-ray confirming the tip at the level of the SVC. The sheath was removed, the catheter was flushed and sutured into position. The patient was stable throughout the p rocedure and remained stable upon discharge from the Department of Radiology. The vein puncture was patent under ultrasound. A espinal scale image was obtained to document patency of the vein punctured. All elements of the maximal barrier technique were utilized. IMPRESSION: 1. Successful PICC line placement under ultrasound performed bedside within the ICU.
[2021-03-28] MEDS ORDERED: MEXILETINE 150 MG CAP PO SCH (16:00)
[2021-03-28 16:05] VITALS: TEMP 99
--- NOTE | 2021-03-28 16:20 | P.PN ---
Progress Note - Text Progress Note Date: 03/28/21 Chief Complaint: Short of breath History of presenting complaint: 81-year-old patient who follows with visiting physicians Dr. Wall. Chronic stable medical conditions include atrial fibrillation, , GERD, hyperlipidemia, coronary artery disease, cardiomyopathy, AICD, BPH. Patient lives with his daughter Brie. Normally uses a walker. Was drinking heavily up until July 2020. ex-smoker. Home oxygen-2 L Admitted from January 01 through January 06: with CHF exacerbation, pneumonia. UTI with cystitis. Positive for pseudomonas. Presented to the ER with increasing shortness of breath. Some wheezing. This morning on a BiPAP with a setting of 14/5/40%. Patient had a wide-complex tachycardia. There is a question about being V. tach. Patient was put on IV amiodarone by Dr. Villarreal. Also found to have infiltrates on the chest x-ray started IV antibiotics in the form of IV Zosyn. Currently not able to give much of a history because of BiPAP. Admitted with acute on chronic CHF exacerbation. EF less than 20%. Bilateral pneumonia. Acute hypoxic respiratory failure. Ventricular tachycardia. Given IV Lasix. IV Zosyn. BiPAP. IV amiodarone. Admitted to the ICU. Episodes of atrial flutter fibrillation. April 15: Diagnostic right heart catheterization. March 28: ICU:. Early hours of this morning patient was unresponsive for 1 minute. Has been having episodes of V. tach and atrial fibrillation. During the cardiac arrest patient did receive a shock 1. Patient being on BiPAP. Put on 8 L nasal cannula for 18. Currently on Lasix drip. Amiodarone drip. Patient currently in sinus rhythm. This morning patient was made DO NOT RESUSCITATE. Patient's daughter and granddaughter the bedside. Sitting up in bed. Eating some. Tired. Some shortness of breath. Review of systems: Was done for constitutional, cardiovascular, GI, pulmonary. relevant finding as above Active Medications Acetaminophen (Acetaminophen Tab 500 Mg Tab) 500 mg PO Q6H PRN PRN Reason: Pain Last Admin: 03/19/21 13:38 Dose: 500 mg Documented by: Albuterol/Ipratropium (Ipratropium-Albuterol 3 Ml Neb) 3 ml INHALATION RT-Q4H PRN PRN Reason: Dyspnea Last Admin: 03/16/21 20:28 Dose: 3 ml Documented by: Albuterol/Ipratropium (Ipratropium-Albuterol 3 Ml Neb) 3 ml INHALATION RT-QID [facility] Last Admin: 03/28/21 15:24 Dose: 3 ml Documented by: Allopurinol (Allopurinol 100 Mg Tab) 100 mg PO [facility] Last Admin: 03/27/21 22:06 Dose: 100 mg Documented by: Amiodarone HCl (Amiodarone 200 Mg Tab) 400 mg PO BID [facility] Calamine/Phenol (Menthol-Zinc Oxide Oint 113 Gm Tube) 1 applic TOPICAL DAILY [facility]; Protocol Last Admin: 03/28/21 12:10 Dose: 1 applic Documented by: Cyanocobalamin (Cyanocobalamin 500 Mcg Tab) 1,000 mcg PO DAILY [facility] Last Admin: 03/28/21 12:09 Dose: 1,000 mcg Documented by: Escitalopram Oxalate (Escitalopram 10 Mg Tab) 10 mg PO DAILY [facility] Last Admin: 03/28/21 12:09 Dose: 10 mg Documented by: Famotidine (Famotidine 20 Mg Tab) 20 mg PO [facility] Last Admin: 03/27/21 22:06 Dose: 20 mg Documented by: Hydralazine HCl (Hydralazine Hcl 10 Mg Tab) 20 mg PO QID [facility] Last Admin: 03/28/21 13:23 Dose: Not Given Documented by: Sodium Chloride (Saline 0.9%) 1,000 mls @ 20 mls/hr IV .Q24H [facility] Last Admin: 03/27/21 16:38 Dose: 20 mls/hr Documented by: Sodium Chloride (Saline 0.9%) 1,000 mls @ 20 mls/hr IV .Q24H [facility] Last Admin: 03/27/21 16:38 Dose: Not Given Documented by: Amiodarone HCl 450 mg/ (Dextrose/Water) 250 mls @ 16.667 mls/hr IV .Q15H [facility]; Protocol Stop: 03/29/21 00:59 Last Admin: 03/28/21 07:30 Dose: 0.5 mg/min, 16.667 mls/hr Documented by: Furosemide 100 mg/ Sodium (Chloride) 100 mls @ 10 mls/hr IV .Q10H [facility] Levothyroxine Sodium (Levothyroxine 50 Mcg Tab) 50 mcg PO 0630 [facility] Last Admin: 03/28/21 12:09 Dose: 50 mcg Documented by: Metoprolol Succinate (Metoprolol Succinate (Er) 25 Mg Tab.Er.24h) 25 mg PO DAILY [facility] Last Admin: 03/28/21 11:49 Dose: Not Given Documented by: Mexiletine HCl (Mexiletine 150 Mg Cap) 150 mg PO Q8HR [facility] Midodrine (Midodrine 5 Mg Tab) 5 mg PO AC-TID [facility] Last Admin: 03/28/21 12:10 Dose: 5 mg Documented by: Miscellaneous Information (Pneumonia Protocol Utilized 1 Each Mis) 1 each PO ONCE PRN PRN Reason: Per Protocol Miscellaneous Information (Potassium Replacement Protocol 1 Each Mis) 1 each MISCELLANE DAILY PRN; Protocol PRN Reason: Per Protocol Miscellaneous Information (Magnesium Replacement Protocol 1 Each [facility]) 1 each MISCELLANE DAILY PRN; Protocol PRN Reason: Per Protocol Miscellaneous Information (Magnesium Replacement Protocol 1 Each [facility]) 1 each MISCELLANE DAILY PRN; Protocol PRN Reason: Per Protocol Naloxone HCl (Naloxone 0.4 Mg/Ml 1 Ml Vial) 0.2 mg IV Q2M PRN PRN Reason: Opioid Reversal Rivaroxaban (Rivaroxaban 15 Mg Tab) 15 mg PO W/SUPPER [facility]; Protocol Last Admin: 03/27/21 16:38 Dose: 15 mg Documented by: Sildenafil Citrate (Sildenafil 20 Mg Tab) 20 mg PO TID [facility] Last Admin: 03/28/21 12:10 Dose: 20 mg Documented by: Spironolactone (Spironolactone 25 Mg Tab) 25 mg PO DAILY [facility] Last Admin: 03/28/21 12:10 Dose: 25 mg Documented by: Tamsulosin HCl (Tamsulosin 0.4 Mg Cap.Er.24h) 0.4 mg PO HS [facility] Last Admin: 03/27/21 22:06 Dose: 0.4 mg Documented by: Review of systems: Difficult to obtain because of shortness of breath BiPAP Past medical history to include: Atrial fibrillation, CHF EF 30-35%, DVT, GERD, GI bleed, hyperlipidemia, [place], cardiomyopathy, AICD, BPH, gait dysfunction using a walker, depression, moderate mitral regurgitation, moderate to severe tricuspid regurgitation, severe pulmonary hypertension. Home oxygen 2 L Social history: Patient is daughter Brie lives with him. Uses walker. Patient smoked for 57 years. Stopped in 2010. Did drink heavily previously Physical examination: VITAL SIGNS: 99, 79, 12, 100/64, 88% on 6 L GENERAL: In reclining in bed, eating some food EYES: Pupils equal. Conjunctiva normal. HEENT: External appearance of nose and ears normal, oral cavity: Unable to assess NECK: JVD unable to assess: masses not palpable. HEART: Heart sounds irregular; mild edema. LUNGS: Respiratory rate increased; decreased breath sounds ABDOMEN: Soft, nontender, liver spleen not palpable, no masses palpable. PSYCH: Answering questions, appropriately MUSCULAR skeletal: Evidence of OA . INVESTIGATIONS, reviewed in the clinical context: March 28: White count 9.8 hemoglobin 9.9 potassium 4.2 creatinine 1.18 Chest x-ray film personally reviewed by me-[March 28]: Bilateral infiltrates with some possible worsening March 20: Potassium 3.4 creatinine 1.7 to AST 246 ALT 365 pro-calcitonin 0.38 March 19,: WBC 5.8 hemoglobin 9.5 potassium 3.6 BUN 48 creatinine 1.9 AST 495 AST 543 March 18: WBC 8 hemoglobin 9.3 potassium 4 BUN 44 creatinine 2.05 AST 1039 ALT 701 WBC 11.4 hemoglobin 10.2 platelets 216 potassium 4.7 BUN 34 creatinine 1.79 and total bilirubin 1.6 AST 592, ALT 290 procalcitonin 1.14 2-D echocardiogram: Moderate concentric LVH. EF less than 20% right ventricle severely enlarged Admission labs: WBC 9.7 hemoglobin 11.3 platelets 21 potassium 4.6 creatinine 1.13 AST 101 ALT 89 troponin I 0.127 proBNP 70001 TSH 3.9 UA protein 1+. Coronavirus PCR: Not detected Chest x-ray film personally reviewed by me-bilateral infiltrates Previous labs: BUN 33 creatinine 1.4 on December: 2-D echocardiogram: Moderate concentric LVH, EF 30-35%, wall motion abnormality, moderate MR, moderate to severe TR, severe pulmonary hypertension Assessment and plan: -Acute on Chronic congestive heart failure from systolic dysfunction EF less than 20%: Uncontrolled Currently on Lasix drip - pneumonia suspected gram-negative organism: IV Zosyn-changed to Augmentin, completed course -Acute hypoxic respiratory failure from CHF and pneumonia: Worsening BiPAP. On 8 L nasal cannula for feeding -Chronic medical debility, uses a walker at baseline PTOT - ventricular tachycardia: Intermittent IV amiodarone-changed to by mouth amiodarone . Back on IV amiodarone -Intermittent atrial fibrillation/flutter, uncontrolled at times On amiodarone, Lopressor, xarelto -Chronic DVT On xarelto -GERD Continue with Protonix -Hyperlipidemia Continue with Lipitor - Acute COPD exacerbation in a previous smoker-improving *Nebulized bronchodilators 4 times a day -BPH: Continue with Flomax -Chronic gout Continue with allopurinol -Essential hypertension Lopressor, -Hypothyroid Continue Synthroid. Given that patient has had significant amount amiodarone. Difficult to follow with TSH. -Severe secondary pulmonary hypertension, secondary to COPD and CHF Continue revatio -Moderate mitral and tricuspid regurgitation Follow clinically -Likely acute ischemic hepatitis: Improving Follow-up LFTs. Hold Lipitor -Acute kidney injury possibly ATN, from infection and possible diagnosis.: Renal function improving Creatinine peaked at 2.05. Down to 1.13 Patient on IV amiodarone, IV Lasix drip. BiPAP for most parts. Other medications to continue. Prognosis guarded.
[2021-03-28] MEDS: RIVAROXABAN 15 MG TAB PO SCH (16:37)
[2021-03-28] MEDS ORDERED: LIDOCAINE 1% INJ 10MG/ML (20 ML MDV) ONE (18:07)
[2021-03-28] MEDS ORDERED: LIDOCAINE 2% SYG (PF) 100 MG/5 ML IV ONE (18:08)
[2021-03-28] MEDS ORDERED: LIDOCAINE-D5W PMX 2G/250ML 2,000 MG in DEXTROSE/WATER 1 250ML.BAG IV SCH (18:15)
[2021-03-28 18:18] LABS: Calcium 8.1 mg/dL (8.4-10.2); Potassium 4.7 mmol/L (3.5-5.1)
--- NOTE | 2021-03-28 19:01 | P.EPCON ---
Electrophysiology Consult - EP Consult Electrophysiology Consult: This is Dr. 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/combination ischemic and nonischemic cardio myopathy Recurrent ventricular tachycardia requiring amiodarone Recurrent slow ventricular tachycardia on amiodarone Impression has had to be resuscitated for this Slow ventricular tachycardia is around 150 beats a minute PLAN: His ICD that was implanted in [place] was interrogated and reprogrammed VT zone 135 beats a minute VF zone 200 beats a minute with appropriate antitachycardia pacing cardioversion and defibrillation programmed Mexiletine, oral started However the patient had more ventricular tachycardia and therefore IV lidocaine was started prognosis is poor, high mortality risk despite medical treatment HPI Patient presented with symptoms of heart failure and ventricular tachycardia Electrophysiology was consulted on account of recurrent slow ventricular tachycardia despite amiodarone Currently the patient is on a BiPAP His family has made him DO NOT RESUSCITATE because he is experiencing recurrent episodes of VT I discussed the changes that I made with the family and the purpose behind them I'm in agreement with the DO NOT RESUSCITATE status and if his device continues to shock him then a magnetic should be placed in the device or/the device be turned off REVIEW OF LABS, ECG & MEDICAL DATA Dual-chamber ICD was interrogated Atrial is impedance 437 ohms, atrial capture threshold 1.4 V at 0.4 ms and P waves 1.6 mV Pacing impedance 380 ohms, RV coil impedance 46 ohms Capture threshold 0.9 V at 0.4 ms and R waves 8.4 mV VT zone 135 beats a minute reprogrammed VF zone 200 beats a minute Appropriate antitachycardia pacing cardioversion defibrillations programmed
[2021-03-28] MEDS ORDERED: AMIODARONE 200 MG TAB PO SCH (21:00)
[2021-03-28] MEDS: TAMSULOSIN 0.4 MG CAP.ER.24H PO SCH (21:04)
[2021-03-28] MEDS: allopurinoL 100 MG TAB PO SCH (21:04)
[2021-03-28] MEDS: FAMOTIDINE 20 MG TAB PO SCH (21:05)
[2021-03-28] MEDS ORDERED: ONDANSETRON 4 MG/2 ML VIAL IVP PRN (23:30)
[2021-03-28] MEDS ORDERED: SCOPOLAMINE 1.5MG/72HR PATCH TRANSDERM SCH (23:45)
[2021-03-28] MEDS ORDERED: ATROPINE OPHTH SOLN 1% 5ML BTL SUBLINGUAL PRN (23:45)
[2021-03-29] MEDS: MORPHINE SULFATE (100 MG/2 ML) 100 MG in SODIUM CHLORIDE 0.9% 100 ML IV SCH ×2 (00:08→02:10)
[2021-03-29 00:39] VITALS: BP 105/53; PULSE 99; RESP 10
[2021-03-29] MEDS: FUROSEMIDE 100 MG in SODIUM CHLORIDE 0.9% 90 ML IV SCH (00:44)
--- NOTE | 2021-03-29 20:41 | P.DS ---
Providers Date of admission: 03/16/21 18:18 Expected date of discharge: 03/29/21 (Patient ) Attending physician: Jori Garcia Consults: 03/16/21 18:15 Consult Physician Stat Consulting Provider: Efren Cuevas Consult Reason/Comments: critical care Do you want consulting provider notified?: Already Contacted Consult Physician Urgent Consulting Provider: Filemon Villarreal Consult Reason/Comments: arrythmia Do you want consulting provider notified?: Already Contacted 03/17/21 07:52 Consult Physician Urgent Consulting Provider: Leda Monroy Consult Reason/Comments: ARF Do you want consulting provider notified?: Yes 03/18/21 11:43 Consult Physician Routine Consulting Provider: Shannon Talbot Consult Reason/Comments: pain.decresed movement left shilder Do you want consulting provider notified?: Yes 03/28/21 09:15 Consult Physician Urgent Consulting Provider: Julius Dennis Consult Reason/Comments: recurrent VT on amio Do you want consulting provider notified?: Already Contacted Primary care physician: Diogenes Wall MD Hospital Course: Chief Complaint: Short of breath History of presenting complaint: 81-year-old patient who follows with visiting physicians Dr. Wall. Chronic stable medical conditions include atrial fibrillation, , GERD, hyperlipidemia, coronary artery disease, cardiomyopathy, AICD, BPH. Patient lives with his daughter Brie. Normally uses a walker. Was drinking heavily up until July 2020. ex-smoker. Home oxygen-2 L Admitted from January 01 through January 06: with CHF exacerbation, pneumonia. UTI with cystitis. Positive for pseudomonas. Presented to the ER with increasing shortness of breath. Some wheezing. This morning on a BiPAP with a setting of 14/5/40%. Patient had a wide-complex t achycardia. There is a question about being V. tach. Patient was put on IV amiodarone by Dr. Villarreal. Also found to have infiltrates on the chest x-ray started IV antibiotics in the form of IV Zosyn. Currently not able to give much of a history because of BiPAP. Admitted with acute on chronic CHF exacerbation. EF less than 20%. Bilateral pneumonia. Acute hypoxic respiratory failure. Ventricular tachycardia. Given IV Lasix. IV Zosyn. BiPAP. IV amiodarone. Admitted to the ICU. Episodes of atrial flutter fibrillation. April 15: Diagnostic right heart catheterization. March 28: ICU:. Early hours of this morning patient was unresponsive for 1 minute. Has been having episodes of V. tach and atrial fibrillation. During the cardiac arrest patient did receive a shock 1. Patient being on BiPAP. Put on 8 L nasal cannula for 18. Currently on Lasix drip. Amiodarone drip. Patient currently in sinus rhythm. This morning patient was made DO NOT RESUSCITATE. Patient's daughter and granddaughter the bedside. Sitting up in bed. Eating some. Tired. Some shortness of breath. March 29: ICU: Overnight patient again went into V. tach. Early hours of this morning family was called. The made the patient comfort care. Patient Consultation: Dr. Hurley partners from pulmonary Dr. Tellez and partners from [facility] Past medical history to include: Atrial fibrillation, CHF EF 30-35%, DVT, GERD, GI bleed, hyperlipidemia, [place], cardiomyopathy, AICD, BPH, gait dysfunction using a walker, depression, moderate mitral regurgitation, moderate to severe tricuspid regurgitation, severe pulmonary hypertension. Home oxygen 2 L Social history: Patient is daughter Brie lives with him. Uses walker. Patient smoked for 57 years. Stopped in 2010. Did drink heavily previously INVESTIGATIONS, reviewed in the clinical context: March 28: White count 9.8 hemoglobin 9.9 potassium 4.2 creatinine 1.18 Chest x-ray film personally reviewed by me-[March 28]: Bilateral infiltrates with some possible worsening March 20: Potassium 3.4 creatinine 1.7 to AST 246 ALT 365 pro-calcitonin 0.38 March 19,: WBC 5.8 hemoglobin 9.5 potassium 3.6 BUN 48 creatinine 1.9 AST 495 AST 543 March 18: WBC 8 hemoglobin 9.3 potassium 4 BUN 44 creatinine 2.05 AST 1039 ALT 701 WBC 11.4 hemoglobin 10.2 platelets 216 potassium 4.7 BUN 34 creatinine 1.79 and total bilirubin 1.6 AST 592, ALT 290 procalcitonin 1.14 2-D echocardiogram: Moderate concentric LVH. EF less than 20% right ventricle severely enlarged Admission labs: WBC 9.7 hemoglobin 11.3 platelets 21 potassium 4.6 creatinine 1.13 AST 101 ALT 89 troponin I 0.127 proBNP 76118 TSH 3.9 UA protein 1+. Coronavirus PCR: Not detected Chest x-ray film personally reviewed by me-bilateral infiltrates Previous labs: BUN 33 creatinine 1.4 on December: 2-D echocardiogram: Moderate concentric LVH, EF 30-35%, wall motion abnormality, moderate MR, moderate to severe TR, severe pulmonary hypertension Cause of : Coronary artery disease Assessment -Acute on Chronic congestive heart failure from systolic dysfunction EF less than 20%: - pneumonia suspected gram-negative organism: IV Zosyn-changed to Augmentin, completed course -Acute hypoxic respiratory failure from CHF and pneumonia: BiPAP. On 8 L nasal cannula for feeding -Chronic medical debility, uses a walker at baseline PTOT - ventricular tachycardia: Intermittent IV amiodarone-changed to by mouth amiodarone . Back on IV amiodarone -Intermittent atrial fibrillation/flutter, uncontrolled at times On amiodarone, Lopressor, xarelto -Chronic DVT On xarelto -GERD Continue with Protonix -Hyperlipidemia Lipitor - Acute COPD exacerbation in a previous smoker- *Nebulized bronchodilators 4 times a day -BPH: Flomax -Chronic gout allopurinol -Essential hypertension Lopressor, -Hypothyroid Continue Synthroid. Given that patient has had significant amount amiodarone. Difficult to follow with TSH. -Severe secondary pulmonary hypertension, secondary to COPD and CHF revatio -Moderate mitral and tricuspid regurgitation -Likely acute ischemic hepatitis: Improving Follow-up LFTs. Hold Lipitor -Acute kidney injury possibly ATN, from infection and possible diagnosis.: Renal function improving Creatinine peaked at 2.05. Down to 1.13 Disposition: Patient Patient Condition at Discharge: Serious Plan - Discharge Summary Discharge Rx Participant: No New Discharge Prescriptions: Discontinued Cyanocobalamin (Vitamin B-12) [Vitamin B-12] 1,000 mcg PO DAILY Tamsulosin [Flomax] 0.4 mg PO HS Rivaroxaban [Xarelto] 20 mg PO HS Metoprolol Tartrate [Lopressor] 50 mg PO BID Potassium Chloride [Klor-Con 20] 20 meq PO BID Cholecalciferol (Vitamin D3) [Vitamin D3] 2,000 mcg PO DAILY Atorvastatin [Lipitor] 20 mg PO DAILY tab allopurinoL [Zyloprim] 100 mg PO HS Escitalopram [Lexapro] 10 mg PO DAILY Ipratropium/Albuter 20-100Mcg [Combivent Respimat 20-100Mcg Inhaler] 1 puff INHALATION RT-QID Levothyroxine Sodium [Synthroid] 50 mcg PO DAILY Pantoprazole Sodium [Protonix] 40 mg PO HS Sildenafil [Revatio] 20 mg PO DAILY Acetaminophen Tab [Tylenol Tab] 500 mg PO Q6H PRN PRN Reason: Pain Amiodarone [Cordarone] 200 mg PO BID Furosemide [Lasix] 40 mg PO DAILY Menthol/Zinc Oxide [Calmoseptine Ointment] 1 applic TOPICAL DAILY Discharge Disposition: - Preliminary Cause of Preliminary Cause of : Coronary artery disease
== END 2021-03-29 04:27 | disposition expired ==
LOC: EC 15:14 → 2SICU 18:18 → 3SCARD 03-18 11:04 → 2SICU 03-25 16:06
PROVIDERS: ADMIT Hospitalist; ATTEND Hospitalist
PROC: 5A09557 Assistance with Respiratory Ventilation, Greater than 96 Consecutive Hours, Continuous Positive Airway Pressure (ICD-10-PCS; 2021-03-16)
PROC: 02HV33Z Insertion of Infusion Device into Superior Vena Cava, Percutaneous Approach (ICD-10-PCS; 2021-03-23)
PROC: 4A023N6 Measurement of Cardiac Sampling and Pressure, Right Heart, Percutaneous Approach (ICD-10-PCS; principal; 2021-03-23 13:30)
PROC: 5A12012 Performance of Cardiac Output, Single, Manual (ICD-10-PCS; 2021-03-28)
DX: I13.0 Hypertensive heart and chronic kidney disease with heart failure and stage 1 through stage 4 chronic kidney disease, or unspecified chronic kidney disease (principal); I50.23 Acute on chronic systolic (congestive) heart failure; I21.4 Non-ST elevation (NSTEMI) myocardial infarction; J15.6 Pneumonia due to other Gram-negative bacteria; J96.21 Acute and chronic respiratory failure with hypoxia; N17.0 Acute kidney failure with tubular necrosis; I48.19 Other persistent atrial fibrillation; I48.92 Unspecified atrial flutter; I47.2 Ventricular tachycardia; J44.0 Chronic obstructive pulmonary disease with (acute) lower respiratory infection; J44.1 Chronic obstructive pulmonary disease with (acute) exacerbation; E87.0 Hyperosmolality and hypernatremia; J84.9 Interstitial pulmonary disease, unspecified; I82.509 Chronic embolism and thrombosis of unspecified deep veins of unspecified lower extremity; I27.29 Other secondary pulmonary hypertension; I95.9 Hypotension, unspecified; D63.1 Anemia in chronic kidney disease; I46.2 Cardiac arrest due to underlying cardiac condition; F10.20 Alcohol dependence, uncomplicated; D50.9 Iron deficiency anemia, unspecified; Z66 Do not resuscitate; Z51.5 Encounter for palliative care; Z20.822 Contact with and (suspected) exposure to COVID-19; K76.1 Chronic passive congestion of liver; K75.89 Other specified inflammatory liver diseases; I25.82 Chronic total occlusion of coronary artery; N18.9 Chronic kidney disease, unspecified; E83.42 Hypomagnesemia; I25.5 Ischemic cardiomyopathy; E87.6 Hypokalemia; I25.10 Atherosclerotic heart disease of native coronary artery without angina pectoris; I08.1 Rheumatic disorders of both mitral and tricuspid valves; I44.7 Left bundle-branch block, unspecified; E78.5 Hyperlipidemia, unspecified; E03.9 Hypothyroidism, unspecified; N40.1 Benign prostatic hyperplasia with lower urinary tract symptoms; R33.8 Other retention of urine; M25.512 Pain in left shoulder; K21.9 Gastro-esophageal reflux disease without esophagitis; F32.9 Major depressive disorder, single episode, unspecified; I25.2 Old myocardial infarction; T50.2X5A Adverse effect of carbonic-anhydrase inhibitors, benzothiadiazides and other diuretics, initial encounter; M1A.9XX0 Chronic gout, unspecified, without tophus (tophi); R26.9 Unspecified abnormalities of gait and mobility; Z91.19 Patient's noncompliance with other medical treatment and regimen; F17.200 Nicotine dependence, unspecified, uncomplicated; Z99.81 Dependence on supplemental oxygen; Z79.890 Hormone replacement therapy; Z79.01 Long term (current) use of anticoagulants; Z79.899 Other long term (current) drug therapy; Z95.810 Presence of automatic (implantable) cardiac defibrillator; Z86.718 Personal history of other venous thrombosis and embolism; Z87.19 Personal history of other diseases of the digestive system; Z87.01 Personal history of pneumonia (recurrent); Z87.440 Personal history of urinary (tract) infections; Z91.81 History of falling; Z98.42 Cataract extraction status, left eye; Z98.41 Cataract extraction status, right eye; Z96.1 Presence of intraocular lens; Z98.890 Other specified postprocedural states; Z91.030 Bee allergy status; Z82.3 Family history of stroke; Z83.3 Family history of diabetes mellitus; Z83.79 Family history of other diseases of the digestive system
CPT/HCPCS: 36415; 36573; 36600; 71045; 71046; 80048; 80051; 80053; 80076; 81001; 82805; 82810; 83605; 83735; 83880; 84132; 84145; 84443; 84484; 85018; 85025; 85027; 85610; 85730; 87040; 87324; 87635; 93005; 93306; 93451; 94640; 94660; 94760; 96365; 96375; 99291